=== PATIENT | male | born 1975 | race Caucasian/White ===

== ENCOUNTER 2019-07-24 13:23 | Outpatient (CLI) | payer OTHER, SELFPAY ==
--- NOTE | ~2019-07-24 | XR_ITS ---
XR knee LT min 4V DATE: 07/24/2019 13:43 INDICATION: Acute left knee effusion TECHNIQUE: Crosstable lateral, AP and bilateral oblique views COMPARISON: 10/18/2018 left knee FINDINGS: There is very prominent distention of suprapatellar bursa consistent with large knee joint effusion. There is mild. Spurring of the patella. There is moderately prominent loss of height at the medial co mpartment joint space. No fracture, dislocation, periosteal reaction or bone destruction is evident. No chondrocalcinosis. IMPRESSION: Very prominent knee joint effusion Osteoarthritic changes Reviewed, dictated and finalized at location A.
== END 2019-07-24 13:24 | disposition home or self-care (01) ==
PROVIDERS: PCP Family Medicine; Visit Provider Family Medicine
DX: M25.462 Effusion, left knee (principal); M17.12 Unilateral primary osteoarthritis, left knee
CPT/HCPCS: 73564

== ENCOUNTER 2019-09-30 13:35 | Outpatient (CLI) | payer OTHER, SELFPAY ==
[2019-10-11 17:08] LABS: Calprotectin, Stool 19 mcg/g
== END 2019-09-30 13:36 | disposition home or self-care (01) ==
PROVIDERS: PCP Family Medicine; Visit Provider Internal Medicine Gastroenterology
DX: K51.00 Ulcerative (chronic) pancolitis without complications (principal)
CPT/HCPCS: 36415; 83993

== ENCOUNTER → 2019-11-29 16:30 | Outpatient (CLI) | payer OTHER, SELFPAY ==
--- NOTE | ~2019-11-29 | XR_ITS ---
EXAMINATION: XR knee LT min 4V DATE: 11/29/2019 18:05 INDICATION: Left knee pain. TECHNIQUE: 4 views of left knee were obtained. COMPARISON: Left knee radiographs 07/25/2019 FINDINGS: There is lateral dislocation of patella. There is lateral subluxation of tibia with respect to distal femur. No definite fracture. There is moderate osteoarthritis of medial compartment and mi ld osteoarthritis of lateral and patellofemoral compartments. There is a large knee joint effusion wi th loose bodies. IMPRESSION: 1. Lateral dislocation of patella. 2. Moderate left knee osteoarthritis. 3. Large left knee joint effusion with loose bodies. Reviewed, dictated and finalized at location A.
== END ==
PROVIDERS: PCP Family Medicine; Visit Provider Nurse Practitioner Family
DX: M25.462 Effusion, left knee (principal); M25.562 Pain in left knee; M25.362 Other instability, left knee; M06.09 Rheumatoid arthritis without rheumatoid factor, multiple sites; S83.015A Lateral dislocation of left patella, initial encounter; M17.12 Unilateral primary osteoarthritis, left knee
CPT/HCPCS: 73564

== ENCOUNTER 2020-02-18 08:51 | Emergency (ER) | payer OTHER, SELFPAY ==
--- NOTE | ~2020-02-18 | XR_ITS ---
EXAMINATION: XR knee LT 3V DATE: 02/18/2020 12:05 INDICATION: Left knee injury. TECHNIQUE: 3 views of left knee were obtained. COMPARISON: Left knee radiographs 12/29/2019 FINDINGS: There is lateral subluxation of tibia with respect to distal femur. There is widening of th e tibiotalar joint. There are osteophytes in the medial and lateral compartments. The patella is abse nt. No acute fracture. There is a knee joint effusion. There is heterotopic ossification lateral to d istal femur. IMPRESSION: 1. Widening of the tibiotalar joint. 2. Interval resection of patella. 3. Knee joint effusion. Reviewed, dictated and finalized at location A. [employer]
[2020-02-18 08:50] VITALS: BP 139/91; PULSE 111; RESP 18; TEMP 37.1; O2SAT 98
[2020-02-18 11:30] VITALS: BP 146/90; PULSE 104; RESP 17; O2SAT 97
[2020-02-18 11:54] LABS: Basophils Absolute Auto 0.1 K/mm3 (0.0-0.1); Basophils Percent Auto 0.4 % (0.2-1.2); Eosinophils Percent Auto 0.1 % (0-4.4); Hematocrit 32.6 % (42.0-52.0); Hemoglobin 11.5 g/dL (14.0-18.0); Immature Granulocyte Absolute 0.09 K/mm3 (0.00-0.031); Immature Granulocyte Percent A 0.6 % (0-0.5); Lymphocytes Percent Auto 5.7 % (18.3-44.2); Mean Corpuscular HGB Conc 35.3 g/dl (32-36); Mean Corpuscular Hemoglobin 33.9 pg (26-34); Mean Corpuscular Volume 96.2 fl (80-100); Mean Platelet Volume 9.8 fl (7.4-10.4); Monocytes Absolute Auto 2.6 K/mm3 (0.1-0.6); Monocytes Percent Auto 16.3 % (2.6-8.5); Neutrophils Absolute Auto 12.2 K/mm3 (1.3-6.7); Neutrophils Percent Auto 76.9 % (45.5-73.1); Nucleated Red Blood Cells Perc 0.1 % (0.0-0.2); Platelet Count Result 345 k/mm3 (150-375); Red Blood Count 3.39 M/mm3 (4.6-6.20); Red Cell Distribution Width 13.9 % (11.5-14.5); White Blood Count 15.9 K/mm3 (4.5-10.0)
[2020-02-18 12:02] LABS: Prothrombin Time 14.1 Seconds (11.1-14.7)
[2020-02-18 12:03] LABS: Anion Gap 6 mmol/L (8-16); Blood Urea Nitrogen 7 mg/dL (9-20); Calcium 8.7 mg/dL (8.4-10.2); Carbon Dioxide 29 mmol/L (22-30); Chloride 94 mmol/L (98-107); Estimated CRCL calculation 121 ml/min; Estimated Glomerular Filt Rate > 60; Glucose 123 mg/dL (75-110); Partial Thromboplastin Time 38.4 SECONDS (22.3-36.8); Potassium 3.8 mmol/L (3.4-5.0); Sodium 129 mmol/L (137-145)
[2020-02-18] MEDS: ceFAZolin 2 GM/D5W 50 ML 2 GM/50 ML BAG IVPB (12:10)
--- NOTE | 2020-02-18 13:50 | ED.GENADULT ---
HPI - General Adult General Chief complaint: Extremity Injury, Lower Stated complaint: fall, opened L knee incision Time Seen by Provider: 02/18/20 10:07 Source: patient, family and EMS Mode of arrival: EMS Limitations: no limitations History of Present Illness HPI narrative: Patient is a 44-year-old male who presents with left knee injury last night reportedly got up out of bed and fell injuring the left knee was not wearing his brace at this time patient had recent left knee surgery by Dr. Cool via through [facility] patient on arrival notes minimal discomfort patient with history of stroke with left-sided weakness chronically patient denies other injuries or complaints or recent illness and on arrival is in the room in no distress Related Data Home Medications Medication Instructions Recorded Confirmed adalimumab [Humira Pen] 40 mg SUBCUT 2XW 03/19/19 03/25/19 alendronate 70 mg PO WEEKLY 03/19/19 03/19/19 azathioprine 50 mg PO BID 03/19/19 03/25/19 folic acid 1 mg PO DAILY 03/19/19 03/25/19 lisinopril 20 mg PO DAILY 03/19/19 03/25/19 metoprolol succinate 25 mg PO DAILY 03/19/19 03/25/19 sulfasalazine 2,000 mg PO DAILY 03/19/19 03/25/19 calcium carbonate [Calcium 500] 500 mg PO BID 03/25/19 03/25/19 glucosamine-chondroitin [Osteo 2 tablet PO BID 03/25/19 03/25/19 Bi-Flex] multivitamin,ss-[id number] 1 tablet PO DAILY 03/25/19 03/25/19 [Complete Multivitamin] Allergies Allergy/AdvReac Type Severity Reaction Status Date / Time No Known Allergies Allergy Verified 02/18/20 09:32 Review of Systems Review of Systems: All systems reviewed & are unremarkable except as noted in HPI and below PMFSH Past Medical History Medical History Brain aneurysm Heart murmur Hx of traumatic brain injury Hypertension Osteoporosis Pulmonary nodule Ulcerative colitis Surgical History Surgical History Hx of brain surgery Hx of colonoscopy Hx of tracheostomy S/P clamping of cerebral aneurysm Family History Family History Father Hypertension Family history of coronary artery disease Mother Hypertension Family history of coronary artery disease Grandparent Carcinoma of colon Diabetes mellitus Social History Social History Smoking status: Never smoker Alcohol intake: never Substance use: never Gender identity (if verbalized by the patient): Male Exam Narrative: Exam Narrative: GENERAL: Well-appearing, well-nourished, and in no acute distress. HEAD: Normocephalic, atraumatic. EYES: PERRLA and EOMI. ENT: Nares clear, no rhinorrhea or epistaxis. Mucous membranes moist. NECK: Supple. No adenopathy or masses. CHEST: Clear to auscultation. No respiratory distress. No wheezes rales or rhonchi HEART: Regular rate and rhythm. No murmur heard. Normal peripheral pulses. ABDOMEN: Soft, nontender, nondistended EXTREMITIES: Bruising swelling around the left knee joint with swelling down into the ankle and up into the thigh patient with no tenderness on palpation of the ankle or hip or thigh patient with surgical wound gaping with red soft tissue exposed. No cervical spine tenderness SKIN: Warm, dry, no rash. NEURO: No focal deficits. Alert and oriented x3. Neurovascularly intact PSYCH: Normal mood and affect. Course Course Emergency Course: Patient in the room at this time aware of case findings treatment plan and diagnosis. Patient was evaluated given medications to include Ancef and will be transferred to [facility] as requested by his orthopedic surgeon for reevaluation and closure of the wound Consultations Consultation #1: Spoke with orthopedist Dr. Garcia who would like the patient to be transferred to [facility] and to be kept n.p.o. Date: 02/18/20 Time: 13:52 Consu
[2020-02-18 13:58] VITALS: BP 142/84; PULSE 94; RESP 18; O2SAT 96
[2020-02-18 14:00] VITALS: BP 142/84; PULSE 94; RESP 16; TEMP 36.6; O2SAT 96
[2020-02-18 14:08] VITALS: PULSE 93; RESP 16; TEMP 36.6; O2SAT 98
== END 2020-02-18 14:10 | disposition short-term general hospital (02) ==
PROVIDERS: Emergency Medicine Emergency Medical Services; Emergency Provider Emergency Medicine; PCP Family Medicine
DX: S80.02XA Contusion of left knee, initial encounter (principal); I69.954 Hemiplegia and hemiparesis following unspecified cerebrovascular disease affecting left non-dominant side; Z87.820 Personal history of traumatic brain injury; M81.0 Age-related osteoporosis without current pathological fracture; Z98.890 Other specified postprocedural states; W06.XXXA Fall from bed, initial encounter
CPT/HCPCS: 36415; 73562; 80048; 85025; 85610; 85730; 96365; 96375; 99285; J0131; J0690

== ENCOUNTER → 2020-06-05 11:51 | Outpatient (CLI) | payer OTHER, SELFPAY ==
--- NOTE | ~2020-06-05 | XR_ITS ---
EXAMINATION: XR chest 2V 06/05/2020 12:19 INDICATION: Ulcerative pancolitis PROCEDURE: 2 view chest COMPARISON: No prior studies for comparison. FINDINGS: The lungs are clear. The cardiomediastinal silhouette is within normal limits. There are no pleural effusions. There is no pneumothorax suspected. There is a right-sided ventriculoperitone al shunt. IMPRESSION: 1: NO ACUTE CARDIOPULMONARY DISEASE. Reviewed, dictated and finalized at location A.
== END ==
PROVIDERS: PCP Family Medicine; Visit Provider Physician Assistant Medical
DX: K51.00 Ulcerative (chronic) pancolitis without complications (principal); Z79.899 Other long term (current) drug therapy
CPT/HCPCS: 71046

== ENCOUNTER → 2020-06-12 01:33 | Outpatient (CLI) | payer OTHER, SELFPAY ==
[2020-06-12 20:13] LABS: SARS-CoV-2 RNA PCR Negative
== END ==
PROVIDERS: PCP Family Medicine; Visit Provider Internal Medicine Gastroenterology
DX: Z01.812 Encounter for preprocedural laboratory examination (principal); Z20.822 Contact with and (suspected) exposure to COVID-19
CPT/HCPCS: C9803; U0003; U0005

== ENCOUNTER 2020-06-15 00:56 | Day surgery (SDC) | payer OTHER, SELFPAY ==
[2020-06-06 10:32] VITALS: BMI 25.9
[2020-06-15 07:30] VITALS: BP 141/69; PULSE 89; RESP 18; TEMP 37.1; O2SAT 100; BMI 23.8
[2020-06-15] MEDS: LACTATED RINGERS 1,000 ML 150 ML IV CONT (07:34)
--- NOTE | 2020-06-15 07:37 | WPDANESEPPF ---
Anes - Initial Pre Proc Eval Procedure: Operation Date: 06/15/20 08:30 Proposed Procedures p Colonoscopy - Aquilino Rahman DO Date/Time: 06/15/20 07:37 Surgeon: Aquilino Rahman DO Pre Op Diagnosis: Ulcerative Rodriguez Colitis Patient Data Age: 44 Gender: M Height: 1.78 m Weight: 75.5 kg Last Vital Signs Temp 37.1 C 06/15/20 07:30 Pulse 89 06/15/20 07:30 Resp 18 06/15/20 07:30 BP 141/69 H 06/15/20 07:30 Pulse Ox 100 06/15/20 07:30 Allergies Allergy/AdvReac Type Severity Reaction Status Date / Time No Known Allergies Allergy Verified 06/15/20 07:09 Home Medications Medication Instructions Recorded Confirmed Type adalimumab [Humira Pen] 40 mg SUBCUT 2XW 03/19/19 06/06/20 History alendronate 70 mg PO WEEKLY 03/19/19 06/06/20 History folic acid 1 mg PO DAILY 03/19/19 06/06/20 History lisinopril 20 mg PO BID 03/19/19 06/06/20 History metoprolol succinate 50 mg PO DAILY 03/19/19 06/06/20 History calcium carbonate [Calcium 500] 500 mg PO BID 03/25/19 06/06/20 History glucosamine-chondroitin [Osteo 2 tablet PO BID 03/25/19 06/06/20 History Bi-Flex] multivitamin,ie-qerb-vgoefmhs 1 tablet PO DAILY 03/25/19 06/06/20 History [Complete Multivitamin] azathioprine [Imuran] 100 mg PO DAILY 06/06/20 06/06/20 History Patient hx anesthesia problems: none Family hx anesthesia problems: none PMFSH Past Medical History Medical History Brain aneurysm Heart murmur Hx of traumatic brain injury Hypertension Osteoporosis Pulmonary nodule Ulcerative colitis Surgical History Surgical History Hx of brain surgery Hx of colonoscopy Hx of tracheostomy S/P clamping of cerebral aneurysm Family History Family History Father Hypertension Family history of coronary artery disease Mother Hypertension Family history of coronary artery disease Grandparent Carcinoma of colon Diabetes mellitus Social History Social History Smoking status: Never smoker Alcohol intake: never Substance use: never Substance use type: does not use Living arrangements: with family Gender identity (if verbalized by the patient): Male Spiritual care concerns: No Anes - Eval Final PreProcedure Day of Procedure 06/15/20 07:37 Patient weight: normal Heart: regular rate and rhythm Lungs: clear to auscultation and normal air movement Airway: Mallampati scale class II Neurological: alert and oriented Last oral intake: >/= 8 hours ASA classification: III Emergent: no Anesthetic plan: proceed Anesthesia type and monitoring: general GIVS Informed Consent: The patient's anesthetic plan and its attendant risks and benefits were discussed with the patient/family/POA. Questions were solicited and answers provided to the satisfaction of the patient/family/POA.
--- NOTE | 2020-06-15 08:22 | WPDGICN ---
GI Consult Note Consult date/time: 06/15/20 08:22 HPI: reason for visit is colonoscopy. This very pleasant gentleman seen in consultation request of the primary physician. Impression: Ulcerative colitis. Traumatic brain injury. Status post previous ventricular peritoneal shunt. HTN. Osteoporosis. Pulmonary nodule. Recommendation: Colonoscopy. History: This very pleasant gentleman's history ulcerative colitis. His GI review systems negative at this time. He is here for colonoscopy for screening and surveillance. Physical examination: General: very pleasant patient in no acute distress. HEENT: Head was normocephalic sclerae is clear mouth without masses neck was supple. Heart: Rate rhythm regular without S3 or S4. Lungs: CTA. Abdomen: Soft with no guarding or rigidity. Bowel sounds were active. Neurologic: Cranial nerves 2 through 12 intact. No focal defects. No clonus. has a history terminal brain injury. Musculoskeletal system: Revealed no joint tenderness or swelling no muscle atrophy. Extremities: Reveal no significant edema. Skin: Warm and dry with normal turgor. Mental status: intact. Patient is alert and oriented. Review of Systems Review of Systems: All systems reviewed & are unremarkable except as noted in HPI and below PMFSH Past Medical History Medical History Brain aneurysm Heart murmur Hx of traumatic brain injury Hypertension Osteoporosis Pulmonary nodule Ulcerative colitis Surgical History Surgical History Hx of brain surgery Hx of colonoscopy Hx of tracheostomy S/P clamping of cerebral aneurysm Family History Family History Father Hypertension Family history of coronary artery disease Mother Hypertension Family history of coronary artery disease Grandparent Carcinoma of colon Diabetes mellitus Social History Social History Smoking status: Never smoker Alcohol intake: never Substance use: never Substance use type: does not use Living arrangements: with family Gender identity (if verbalized by the patient): Male Spiritual care concerns: No Meds Home Medications and Allergies Home Medications Medication Instructions Recorded Confirmed Type adalimumab [Humira Pen] 40 mg SUBCUT 2XW 03/19/19 06/06/20 History alendronate 70 mg PO WEEKLY 03/19/19 06/06/20 History folic acid 1 mg PO DAILY 03/19/19 06/06/20 History lisinopril 20 mg PO BID 03/19/19 06/06/20 History metoprolol succinate 50 mg PO DAILY 03/19/19 06/06/20 History calcium carbonate [Calcium 500] 500 mg PO BID 03/25/19 06/06/20 History glucosamine-chondroitin [Osteo 2 tablet PO BID 03/25/19 06/06/20 History Bi-Flex] multivitamin,co-xhkn-[id number] 1 tablet PO DAILY 03/25/19 06/06/20 History [Complete Multivitamin] azathioprine [Imuran] 100 mg PO DAILY 06/06/20 06/06/20 History Allergies Allergy/AdvReac Type Severity Reaction Status Date / Time No Known Allergies Allergy Verified 06/15/20 07:09 Vital Signs Vital Signs - 24 hr 06/15/20 07:30 Temperature 37.1 C Pulse Rate 89 Respiratory Rate 18 Blood Pressure 141/69 H Pulse Oximetry 100
[2020-06-15] MEDS: AMPICILLIN 2 GM/NS 100 ML 2 GM/100 ML BAG IVPB (08:48)
[2020-06-15] MEDS: METHYLENE BLUE 0.5% INJ 10 ML AMPULE 20 ML IRRIGATION ×2 (09:48→09:59)
[2020-06-15 10:07] VITALS: BP 127/91; PULSE 83; RESP 18; O2SAT 100
[2020-06-15 10:17] VITALS: BP 129/97; PULSE 80; RESP 28; O2SAT 97
[2020-06-15 10:27] VITALS: BP 127/80; PULSE 82; RESP 24; O2SAT 98
== END 2020-06-15 10:40 | disposition home or self-care (01) ==
PROVIDERS: PCP Family Medicine; Visit Provider Internal Medicine Gastroenterology
PROC: 0DJD8ZZ Inspection of Lower Intestinal Tract, Via Natural or Artificial Opening Endoscopic (ICD-10-PCS; CPT 45378; principal; 2020-06-15 08:30)
DX: Z12.11 Encounter for screening for malignant neoplasm of colon (principal); D12.4 Benign neoplasm of descending colon; K51.90 Ulcerative colitis, unspecified, without complications; I10 Essential (primary) hypertension; M81.0 Age-related osteoporosis without current pathological fracture; Z87.820 Personal history of traumatic brain injury
CPT/HCPCS: 45380; 88305; C9803; J0290; J1580; J2704; J7120; Q9968; U0003; U0005

== ENCOUNTER 2021-01-04 08:21 | Outpatient (CLI) | payer OTHER, SELFPAY ==
--- NOTE | ~2021-01-04 | DEXA_ITS ---
Bone Density Report Name: Moose Miranda Age: 45 Sex: Male Ethnicity: White Date of : 1975 Indication: monitoring treatment; inflammatory bowel disease; rheumatoid arthritis; Referring Provider: Alex, Komal Galvez Study: Bone densitometry was performed. Exam Date: January 04, 2021 Accession number: [id number] Bone Density: Region BMD T-score Z-score Classification AP Spine (L1-L4) 1.210 1.1 1.3 Normal Femoral Neck (Left) 0.797 -1.0 -0.4 Normal Total Hip (Left) 0.877 -1.0 -0.8 Normal Total Hip Bilateral Avg 0.949 -0.6 -0.3 Normal Femoral Neck (Right) 0.941 0.1 0.7 Normal Total Hip (Right) 1.020 -0.1 0.2 Normal World Health Organization criteria for BMD impression classify patients as: Normal (T-score at or above -1.0), Osteopenia (T-score between -1.0 and -2.5), or Osteoporosis (T-score at or below -2.5). 10-year Fracture Risk: FRAX not reported because: Man under age 50 All T-scores for Spine Total, Hip Total, Femoral Neck at or above -1.0 Treated for osteoporosis Previous Exams: Region Exam Age BMD T-score BMD Change BMD Change Date g/cm2 vs Baseline vs Previous AP Spine(L1-L4) 01/04/2021 45 1.210 1.1 0.193(18.9%)# 0.002(0.2%) 04/28/2018 42 1.208 1.1 0.191(18.7%)# 0.067(5.9%)* 09/05/2016 41 1.141 0.5 0.123(12.1%)# 0.123(12.1%)# 10/25/2011 36 1.018 -0.7 Total Hip(Left) 01/04/2021 45 0.877 -1.0 0.062(7.6%)# -0.053(-5.7%)* 04/28/2018 42 0.930 -0.7 0.115(14.1%)# 0.016(1.7%) 09/05/2016 41 0.915 -0.8 0.100(12.2%)# 0.100(12.2%)# 10/25/2011 36 0.815 -1.4 Total Hip(Right) 01/04/2021 45 1.020 -0.1 0.037(3.8%)# -0.022(-2.1%) 04/28/2018 42 1.042 0.1 0.059(6.0%)# -0.019(-1.8%) 09/05/2016 41 1.061 0.2 0.078(7.9%)# 0.078(7.9%)# 10/25/2011 36 0.983 -0.3 *Denotes significance at 95% confidence level, LSC for AP Spine = 0.022 g/cm2, LSC for Total Hip = 0.027 g/cm2 Clinical Information Provided by Patient: Has rheumatoid arthritis Is being treated for osteoporosis Has used the following medications: Fosamax (i.e. alendronate), Vitamin D, Calcium Has the following medical conditions: Inflammatory bowel diseases, ULCERATIVE COLITIS Patient maximum height was 69 Does not regularly consume dairy products Drinks caffeinated beverages Impression: The patient's bone mass is within expected range for age, gender and ethnicity. The BMD for the Total Hip(Left
== END 2021-01-04 08:22 | disposition home or self-care (01) ==
LOC: ANHIMG 08:22
PROVIDERS: PCP Family Medicine; Visit Provider Physician Assistant Medical
DX: M81.0 Age-related osteoporosis without current pathological fracture (principal); Z51.81 Encounter for therapeutic drug level monitoring; Z79.899 Other long term (current) drug therapy; K51.00 Ulcerative (chronic) pancolitis without complications
CPT/HCPCS: 77080

== ENCOUNTER 2022-11-03 11:15 | Inpatient (IN) | payer OTHER, SELFPAY ==
[2022-11-03] VITALS (7 sets, daily range): BP systolic 113–134; BP diastolic 86–100; PULSE 80–88; RESP 12–18; TEMP 36.2–36.9; O2SAT 94–100
--- NOTE | ~2022-11-03 | US_ITS ---
EXAMINATION: US venous doppler [facility] DATE: 11/04/2022 10:04 INDICATION: Bilateral lower limb edema TECHNIQUE: Rodriguez scale images without and with compression and Doppler images of the bilateral lower e xtremity veins were obtained. COMPARISON: None FINDINGS: The right common femoral vein, profunda femoral vein, femoral vein, popliteal vein, peroneal trunk, p osterior tibial veins, and greater saphenous vein are patent. The left common femoral vein, profunda femoral vein, femoral vein, popliteal vein, peroneal trunk, po sterior tibial veins, and greater saphenous vein are patent. IMPRESSION: 1. Patent bilateral lower extremity veins. No evidence of deep venous thrombosis. Reviewed, dictated and finalized at location A. IMPRESSION: 1. Patent bilateral lower extremity veins. No evidence of deep venous thrombosi s.
--- NOTE | ~2022-11-03 | XR_ITS ---
EXAMINATION: XR hip BI 2V w AP pelvis DATE: 11/03/2022 13:46 INDICATION: Pelvic pain. TECHNIQUE: An anteroposterior view of the pelvis and 2 views of each hip were obtained. COMPARISON: None. FINDINGS: There is lumbar levocurvature and mild spondylosis. No fracture. There is moderate right hi p osteoarthritis and mild left hip osteoarthritis. Partially visualized is a ventriculoperitoneal laquita nt. IMPRESSION: 1. Moderate right hip osteoarthritis and mild left hip osteoarthritis. Reviewed, dictated and finalized at location A.
--- NOTE | ~2022-11-03 | XR_ITS ---
EXAMINATION: XR shunt series DATE: 11/03/2022 13:46 INDICATION: Frequent falls. TECHNIQUE: 8 views of a shunt series were obtained. COMPARISON: Chest 2 views 06/05/2020 FINDINGS: There is a right-sided ventriculostomy tube in expected position. There is no break or kink of the tubing. The shunt tip is in the left abdomen. There are no dilated loops of bowel. IMPRESSION: 1. Ventriculoperitoneal shunt in expected position. Reviewed, dictated and finalized at location A.
--- NOTE | ~2022-11-03 | CT_ITS ---
EXAMINATION: CT brain wo con DATE: 11/03/2022 13:18 INDICATION: Frequent falls. TECHNIQUE: Computed tomography (CT) of the head was performed without intravenous contrast. The mA wa s adjusted according to patient size. Iterative reconstruction technique was employed. The dose-lengt h product was 605.33 mGy-cm. COMPARISON: Head CT 10/18/2018 FINDINGS: There is chronic encephalomalacia in left cerebellum. There is chronic encephalomalacia in right parietal lobe. There is no intracranial hemorrhage, acute infarction, or abnormal intracranial mass lesion. The ventricles are normal in size. There is a right occipital ventriculostomy catheter w ith tip in right lateral ventricle. There are changes of right-sided craniotomy. There are changes of left posterior craniotomy. The paranasal sinuses are clear. The orbits are normal. The mastoid air c ells are normal. IMPRESSION: 1. Chronic encephalomalacia in left cerebellum and right parietal lobe. 2. Normal size of the ventricles with shunt in expected position. Reviewed, dictated and finalized at location A.
--- NOTE | ~2022-11-03 | CT_ITS ---
EXAMINATION: CT lumbar spine wo con DATE: 11/03/2022 13:19 INDICATION: Back pain. Frequent falls. TECHNIQUE: Computed tomography (CT) of the lumbar spine was performed without intravenous contrast. A utomated exposure control and iterative reconstruction technique were employed. The dose-length produ ct was 672.84 mGy-cm. COMPARISON: None FINDINGS: There is 6 degrees levocurvature of lumbar spine. There is mild chronic anterior wedging of T12 and L1 vertebral bodies. There is 4 mm retrolisthesis of L1 on L2, L2 on L3, and L3 on L4. There is mildly decreased disc height at L1-L2, L2-L3, L3-L4, and L4-L5. Osseous central spinal canal is d evelopmentally small in lumbar spine. The following disc levels are specifically discussed: L1-L2: The disc is bulging. There is no facet joint osteoarthritis. There is mild bilateral neural fo raminal stenosis. There is moderate central canal stenosis. L2-L3: The disc is bulging. There is mild bilateral facet joint osteoarthritis. There is moderate rig ht and mild left neural foraminal stenosis. There is mild central canal stenosis. L3-L4: The disc is bulging. There is mild left facet joint osteoarthritis. There is moderate and mild left neural foraminal stenosis. There is moderate central canal stenosis. L4-L5: The disc is bulging. There is moderate right and mild left facet joint osteoarthritis. There i s moderate bilateral neural foraminal stenosis. There is moderate central canal stenosis. L5-S1: The disc is bulging. There is mild bilateral facet joint osteoarthritis. There is mild bilater al neural foraminal stenosis. There is mild central canal stenosis. IMPRESSION: 1. Moderate lumbar spondylosis. Reviewed, dictated and finalized at location A.
--- NOTE | 2022-11-03 11:57 | ED.BACK ---
HPI - Back Pain/Injury General Chief Complaint: Back Pain/Injury Stated Complaint: fall, back pain Time Seen by Provider: 11/03/22 11:42 History of Present Illness HPI Narrative: patient is a 47-year-old male with history of ulcerative colitis, brain aneurysm status post partial cerebellar resection and DOCK BOSS shunt placement here with lower back pain, bilateral hip pain, recurrent falls. Patient notes that since a left sided knee surgery in 2018 he has had difficulty with balance which leads to frequent falls. This is further exasperated by some residual left-sided weakness after his complicated brain surgery history in 1987. he states that on Friday he does not believe he had had a fall recently and began having lower back pain and bilateral hip pain. He notes that he has had some worsening difficulty moving his left leg since that time. He notes he has had several falls since that time and has transitioned from using his walker to more frequent using of his wheelchair. He denies bowel or bladder incontinence, saddle anesthesia. Denies fever or chills. Denies known cancer or history of IVDU. Related Data Home Medications Medication Instructions Recorded Confirmed adalimumab 40 mg/0.8 mL 40 mg subcut Q14D 03/19/19 11/03/22 subcutaneous pen kit (Humira Pen) alendronate 70 mg tablet 70 mg PO WEEKLY 03/19/19 11/03/22 folic acid 1 mg tablet 1 mg PO DAILY 03/19/19 11/03/22 lisinopril 20 mg tablet 20 mg PO BID 03/19/19 11/03/22 metoprolol succinate 25 mg 50 mg PO DAILY 03/19/19 11/03/22 tablet,extended release 24 hr calcium carbonate 500 mg calcium 500 mg PO BID 03/25/19 11/03/22 (1,250 mg) tablet (Calcium 500) glucosamine-chondroitin 250 mg-200 2 tablet PO DAILY 03/25/19 11/03/22 mg tablet (Osteo Bi-Flex) multivitamin,ss-lyfz-luldvadt 1 tablet PO DAILY 03/25/19 11/03/22 (Complete Multivitamin tablet) azathioprine 50 mg tablet (Imuran) 100 mg PO DAILY 06/06/20 11/03/22 sulfasalazine 500 mg tablet 500 mg PO QID 11/03/22 11/03/22 Allergies Allergy/AdvReac Type Severity Reaction Status Date / Time No Known Allergies Allergy Verified 11/03/22 17:39 Review of Systems Review of Systems: CONSTITUTIONAL: Denies fever, chills, or sweats. CARDIOVASCULAR: Denies chest pain, palpitations, or edema. RESPIRATORY: Denies cough or dyspnea. GASTROINTESTINAL: Denies abdominal pain, nausea, vomiting, or diarrhea. GENITOURINARY: Denies dysuria or hematuria. SKIN: Denies rash or itching. MUSCULOSKELETAL: Back pain, bilateral hip pain NEUROLOGIC: Worsening left leg weakness. No headache. [facility] Past Medical History Medical History Brain aneurysm Heart murmur Hx of traumatic brain injury Hypertension Osteoporosis Pulmonary nodule Ulcerative colitis Surgical History Surgical History Hx of brain surgery Hx of colonoscopy Hx of tracheostomy S/P clamping of cerebral aneurysm Family History Family History Father Hypertension Family history of coronary artery disease Mother Hypertension Family history of coronary artery disease Grandparent Carcinoma of colon Diabetes mellitus Social History Social History Smoking status: Never smoker Alcohol intake: never Substance use: never Substance use type: does not use Lack of Transportation: No Lack of Food: Never True Current Housing: I Have Housing Concerned About Future Housing: No Difficulty Paying Gas/Electric Bills: No Difficulty Paying for Meds: No Currently Unemployed: No Education: Trade/Vocational Certificate Difficulty w/ Childcare or Family Care: No Living arrangements: with family Gender identity (if verbalized by the patient): Male Spiritual care concerns: No Exam Narrative: GENERAL: Well-appeari
[2022-11-03] MEDS: HYDROcodone/acetaminophen (*CRX) 5-325 MG TABLET 1 TAB PO (12:33)
[2022-11-03 13:00] LABS: Basophils Absolute Auto 0.1 K/mm3 (0.0-0.1); Basophils Percent Auto 0.4 % (0.2-1.2); Eosinophils Percent Auto 0.2 % (0-4.4); Hematocrit 37.5 % (42.0-52.0); Hemoglobin 12.9 g/dL (14.0-18.0); Immature Granulocyte Absolute 0.04 K/mm3 (0.00-0.031); Immature Granulocyte Percent A 0.3 % (0-0.5); Lymphocytes Absolute Auto 1.69 K/mm3 (0.9-3.2); Lymphocytes Percent Auto 13.7 % (18.3-44.2); Mean Corpuscular HGB Conc 34.4 g/dl (32-36); Mean Corpuscular Hemoglobin 31.8 pg (26-34); Mean Corpuscular Volume 92.4 fl (80-100); Monocytes Absolute Auto 1.6 K/mm3 (0.1-0.6); Monocytes Percent Auto 12.7 % (2.6-8.5); Neutrophils Percent Auto 72.7 % (45.5-73.1); Platelet Count Result 273 k/mm3 (150-375); Red Blood Count 4.06 M/mm3 (4.6-6.20); Red Cell Distribution Width 13.4 % (11.5-14.5); White Blood Count 12.3 K/mm3 (4.5-10.0)
[2022-11-03 13:13] LABS: Alanine Aminotransferase 30 U/L (6-50); Albumin Level 4.1 g/dL (3.5-5.1); Alkaline Phosphatase 59 U/L (38-126); Anion Gap 5 mmol/L (8-16); Aspartate Amino Transferase 47 U/L (17-59); Blood Urea Nitrogen 5 mg/dL (9-20); CRP 0.6 mg/dL (<1.0); Calcium 8.8 mg/dL (8.4-10.2); Carbon Dioxide 25 mmol/L (22-30); Chloride 91 mmol/L (98-107); Estimated CRCL calculation 135 ml/min; Estimated Glomerular Filt Rate > 60; Glucose 98 mg/dL (65-110); Potassium 3.8 mmol/L (3.4-5.0); Sodium 121 mmol/L (137-145)
[2022-11-03 13:28] LABS: Erythrocyte Sedimentation Rate 15 mm/hr (0-20)
[2022-11-03] MEDS: SODIUM CHLORIDE 0.9% IV 1,000 ML 999 ML IV CONT (16:00)
[2022-11-03 16:29] LABS: Sodium Urine Random 23 meq/L
--- NOTE | 2022-11-03 18:24 | PM.IMHP ---
H&P: HPI History of Present Illness Date/Time: 11/03/22 18:24 Chief Complaint: Back pain/injury Narrative: This is a 47-year-old male patient who has a history of ulcerative colitis as well as chronic hyponatremia. The patient has had a a history of brain aneurysm with a resection and GENERAL ACCOUNTANT shunt. The patient has had a history of having a tracheostomy with focal cord paralysis. The patient stated that he had his knee cap removed back in 2018 any has problems with his balance and has been falling. The patient reported that he had some left-sided weakness but he is able to move all extremities today. The patient stated that he had a fall on Friday but does not believe that he had of fall since then. The patient was having some lower back pain and some bilateral hip pain since his last fall. He is having more difficulty moving his left leg and has had several falls. The patient typically uses a walker but has transition to a wheelchair. He is not incontinent of bowel or bladder. No saddle anesthesias. He is currently moving all extremities. The patient denies any syncopal episode or having any complaints of palpitations chest pain or irregular heartbeat. The patient hitting his head during any these episodes of falling. Hip and pelvis x-ray was read as moderate right hip osteoarthritis and mild left hip osteoarthritis. Imaging shunt series was read as GENERAL ACCOUNTANT shunt in expected position. Lumbar spine was read as moderate lumbar spondylosis. Head CT was read as chronic encephalomalacia in the lesser prolonged and right parietal lobe. Normal size of the ventricles with shunt in expected position. His white count is 12.3. H&H is 12.9 and 37.5. The patient's sodium level was 121 when he came in and is now 125. The patient has chronic hyponatremia which ranges anywhere from 124-132. The patient was given an IV bolus of normal saline in the emergency room. The patient denies any alcohol use. The patient is being admitted to observation status on the date of service of 11/03/2022. Review of Systems Review of Systems: All systems reviewed & are unremarkable except as noted in HPI and below Constitutional: Constitutional: Reports as per HPI and Reports no additional constitutional complaints Eyes: Eyes: Reports as per HPI and Reports no additional eye complaints ENT: Reports system reviewed and no additional complaints, except as documented and Reports Normal hearing present Cardiovascular: Cardiovascular: Reports no additional cardiovascular complaints Respiratory: Respiratory: Reports no additional respiratory complaints and Reports no additional respiratory complaints Gastrointestinal: Gastrointestinal: Reports as per HPI and Reports no additional gastrointestinal complaints Musculoskeletal: Musculoskeletal: Reports no additional musculoskeletal complaints Integumentary/Breasts: Skin/Breast: Reports system reviewed and no additional complaints, except as docu and Reports as per HPI Neurologic: Reports system reviewed and no additional complaints, except as documented, Reports as per HPI and Reports Normal hearing present Psychiatric: Psychiatric: Reports no additional psychiatric complaints and Reports as per HPI Endocrine: Endocrine: Reports no additional endocrine complaints Hematologic/Lymphatic: Hematologic/Lymphatic: Reports no additional hematologic/lymphatic complaints Allergic/Immunologic: Allergic/Immunologic: Reports no additional allergic/immunologic complaints PMFSH Past Medical History Medical History (Updated 11/03/22 @ 23:57 by Kaylene Duke NP) Brain aneurysm Frequent falls Heart murmur History of seizure Hx of traumatic brain injury Hypertension Osteoporosis Pulmonary nodule Ulcerative colitis Surgical History Surgical History (Updated 11/03/22 @ 23:34 by Kaylene Duke NP) H/O left knee surgery Hx of brain surgery Hx of colonoscopy Hx of tracheostomy S/P clamping of cerebral aneurysm Fam
--- NOTE | 2022-11-03 20:12 | ECG_ITS ---
Measurements Intervals [place] Rate: 81 P: CT: 0 QRS: 67 QRSD: 93 T: 40 QT: 379 QTc: 440 Interpretive Statements ATRIAL FIBRILLATION ABNORMAL RHYTHM ECG NO PREVIOUS ECG AVAILABLE FOR COMPARISON Electronically Signed On 11-04-2022 7:34:03 CDT by Ranjan Carter M.D.
[2022-11-03 21:40] LABS: Anion Gap 3 mmol/L (8-16); Blood Urea Nitrogen 6 mg/dL (9-20); Calcium 8.5 mg/dL (8.4-10.2); Carbon Dioxide 27 mmol/L (22-30); Chloride 95 mmol/L (98-107); Estimated CRCL calculation 117 ml/min; Estimated Glomerular Filt Rate > 60; Glucose 109 mg/dL (65-110); Magnesium 1.9 mg/dL (1.6-2.3); Potassium 3.6 mmol/L (3.4-5.0); Sodium 125 mmol/L (137-145)
[2022-11-04] VITALS (8 sets, daily range): BP systolic 124–129; BP diastolic 82–90; PULSE 63–90; RESP 16–20; TEMP 36.2–36.4; O2SAT 100
--- NOTE | 2022-11-04 | ECHO_ITS ---
Patient Info Name: Moose Miranda Age: 47 years : 1975 Gender: Male Ht: 70 in Wt: 194 lbs BSA: 2.10 m2 HR: 74 bpm BP: 123 / 87 mmHg Heart Rhythm: Atrial Fibrillation Technical Quality: Fair Exam Date: 11/04/2022 4:14 PM Exam Location: [facility] Pulmonary Exam Room: 306 Patient Status: Outpatient Admit Date: 11/03/2022 Staff Ordering Physician: Kaylene Duke NP [place]: Aurelia Davis RDCS Attending Provider: Tommy Paulino MD Referring Physician: Leilani PERES; Exam Type: CA echo dop color flow w con Study Info Indications - NEW AFIB Complete two-dimensional, color flow and Doppler transthoracic echocardiogram is performed with contrast to opacify the left ventricle and to improve the deliniation of the left ventricle endocardial borders. Contrast/Agitated Saline Contrast/Ag. Saline: Definity Amount: 2.00 ml Administered By: Aurelia Davis [facility] Existing IV Access: Yes IV Access Condition: patent with no signs of infiltration Summary 1. Normal left ventricular size thickness and systolic function. 2. Dilated left atrium. 3. Trivial mitral and tricuspid valve regurgitation. 4. Atrial fibrillation. Left Ventricle Left ventricular chamber dimension is normal. Left ventricular systolic function is normal, estimated at 50-55%. The left ventricular diastolic function is indeterminate. Right Ventricle Right ventricular chamber dimension is normal. Left Atria Left atrial chamber dimension is moderately enlarged. Right Atria Right atrial chamber dimension is not well visualized. Aortic Valve The aortic valve is normal. Pulmonic Valve The pulmonic valve is normal. Mitral Valve The mitral valve has normal leaflets. There is trace mitral valve regurgitation. Tricuspid Valve The tricuspid valve leaflets are normal. There is trace tricuspid valve regurgitation. Pericardium/Pleural The pericardium appears normal. Aorta The aortic root size at the sinus of Valsalva is normal. Left Ventricular Outflow Tract Name Value Normal LVOT 2D LVOT Diameter 2.11 cm LVOT Doppler LVOT Peak Gradient 3 mmHg LVOT Mean Gradient 1 mmHg LVOT VTI 14.97 cm LVOT VTI/AV VTI Ratio 0.86 LVOT Stroke Volume 52.51 ml LVOT CO 11.83 l/min LVOT CI 5.63 L/min/m2 Pulmonic Valve Name Value Normal PV Doppler PV Peak Gradient 3 mmHg Mitral Valve Name Value Normal MV Doppler MV [place] 559.90 cm/s2
[2022-11-04] MEDS: SODIUM CHLORIDE 0.9% IV 1,000 ML 50 ML IV CONT (01:05)
[2022-11-04 03:41] LABS: Appearance Urine Clear (Clear); Bilirubin Urine Negative (Negative); Blood Urine Negative (Negative); Color Urine Yellow (Yellow); Glucose Urine UA Negative (Negative); Ketones Urine Negative (Negative); Leukocyte Esterase Ur Negative LEU/UL (Negative); Nitrate Urine Negative (Negative); Protein Urine Negative (Negative); Specific Grav Ur 1.004 (1.001-1.035); Urobilinogen Urine 0.2 mg/dL (<2.0); pH Urine 7.5 (5.0-9.0)
[2022-11-04 03:50] LABS: Add Urine Microscopic? NO
[2022-11-04 07:03] LABS: Basophils Percent Auto 0.6 % (0.2-1.2); Eosinophils Percent Auto 0.6 % (0-4.4); Hematocrit 38.8 % (42.0-52.0); Hemoglobin 12.9 g/dL (14.0-18.0); Immature Granulocyte Absolute 0.03 K/mm3 (0.00-0.031); Immature Granulocyte Percent A 0.4 % (0-0.5); Lymphocytes Absolute Auto 1.55 K/mm3 (0.9-3.2); Lymphocytes Percent Auto 22.7 % (18.3-44.2); Mean Corpuscular HGB Conc 33.2 g/dl (32-36); Mean Corpuscular Hemoglobin 31.8 pg (26-34); Mean Corpuscular Volume 95.6 fl (80-100); Mean Platelet Volume 10.3 fl (7.4-10.4); Monocytes Absolute Auto 1.1 K/mm3 (0.1-0.6); Monocytes Percent Auto 15.4 % (2.6-8.5); Neutrophils Absolute Auto 4.1 K/mm3 (1.3-6.7); Neutrophils Percent Auto 60.3 % (45.5-73.1); Platelet Count Result 245 k/mm3 (150-375); Red Blood Count 4.06 M/mm3 (4.6-6.20); Red Cell Distribution Width 13.6 % (11.5-14.5); White Blood Count 6.8 K/mm3 (4.5-10.0)
[2022-11-04 07:15] LABS: Alanine Aminotransferase 30 U/L (6-50); Albumin Level 3.8 g/dL (3.5-5.1); Alkaline Phosphatase 53 U/L (38-126); Anion Gap 5 mmol/L (8-16); Aspartate Amino Transferase 43 U/L (17-59); Blood Urea Nitrogen 7 mg/dL (9-20); Calcium 8.3 mg/dL (8.4-10.2); Carbon Dioxide 26 mmol/L (22-30); Chloride 101 mmol/L (98-107); Estimated CRCL calculation 135 ml/min; Estimated Glomerular Filt Rate > 60; Glucose 87 mg/dL (65-110); Magnesium 2.1 mg/dL (1.6-2.3); Potassium 4.1 mmol/L (3.4-5.0); Sodium 132 mmol/L (137-145)
[2022-11-04] MEDS: sulfaSALAzine 500 MG TABLET PO ×4 (09:04→21:45)
[2022-11-04] MEDS: THERAPEUTIC MULTIVITAMINS/MINERALS TAB (*BKC) 1 TABLET PO (09:04)
[2022-11-04] MEDS: FOLIC ACID 1 MG TABLET PO (09:05)
[2022-11-04] MEDS: lisinopriL 20 MG TABLET PO ×2 (09:05→21:45)
[2022-11-04] MEDS: azaTHIOprine 50 MG TABLET 100 MG PO (09:05)
[2022-11-04] MEDS: CALCIUM CARBONATE (OSCAL) 500 MG TABLET PO ×2 (09:05→17:32)
[2022-11-04] MEDS: METOPROLOL SUCCINATE EXT REL 50 MG TABCR PO (09:05)
--- NOTE | 2022-11-04 09:32 | PM.IMPN ---
Subjective Date/time seen: 11/04/22 09:32 Objective Data Vital Signs Vital Signs: Vital Signs - 24 hr 11/03/22 11:19 11/03/22 11:24 11/03/22 12:00 Temperature 36.9 C Pulse Rate 88 87 86 Respiratory Rate 13 12 16 Blood Pressure 134/100 H 113/86 Pulse Oximetry 100 100 94 Oxygen Delivery Room Air 11/03/22 12:18 11/03/22 17:10 11/03/22 18:19 Temperature 36.6 C Pulse Rate 86 84 Respiratory Rate 14 18 Blood Pressure 127/87 Pulse Oximetry 99 94 96 Oxygen Delivery Room Air 11/03/22 21:46 11/04/22 00:00 11/04/22 04:00 Temperature 36.2 C L Pulse Rate 80 87 74 Respiratory Rate 16 Blood Pressure 123/87 Pulse Oximetry 95 Oxygen Delivery 11/04/22 06:00 11/04/22 09:05 Temperature 36.2 C L Pulse Rate 82 76 Respiratory Rate 18 Blood Pressure 127/90 Pulse Oximetry 100 Oxygen Delivery Intake/Output Intake/Output: Intake & Output 11/01/22 11/02/22 11/03/22 11/04/22 23:59 23:59 23:59 23:59 Intake Total 240 Output Total 350 1525 Balance -110 -1525 Meds/Results Medications: Active Medications Generic Name Dose Route Start Last Admin Trade Name Freq PRN Reason Stop Dose Admin Azathioprine 100 mg 11/04/22 09:00 11/04/22 09:05 Azathioprine 50 Mg Tablet PO 100 mg DAILY DAKSHA Administration Calcium Carbonate 500 mg 11/04/22 09:00 11/04/22 09:05 Calcium Carbonate (Oscal) 500 Mg Tablet PO 500 mg BID DAKSHA Administration Folic Acid 1 mg 11/04/22 09:00 11/04/22 09:05 Folic Acid 1 Mg Tablet PO 1 mg DAILY DAKSHA Administration Sodium Chloride 1,000 mls @ 50 mls/hr 11/03/22 23:20 11/04/22 01:05 Normal Saline Iv IV CONT 50 mls/hr .Q20H DAKSHA Administration Lisinopril 20 mg 11/04/22 09:00 11/04/22 09:05 Lisinopril 20 Mg Tablet PO 20 mg Q12HR ADKSHA Administration Metoprolol Succinate 50 mg 11/04/22 09:00 11/04/22 09:05 Metoprolol Succinate Ext Rel 50 Mg Tabcr PO 50 mg DAILY DAKSHA Administration Multivitamins/Calcium 1 tablet 11/04/22 09:00 11/04/22 09:04 Therapeutic Multivitamins/Minerals Tab (*Bkc) PO 1 tablet DAILY DAKSHA Administration Perflutren Lipid Microsphere 0 ml 11/03/22 23:32 Perflutren Lipid Microspheres 1.5 Ml Vial Diluted To 10 Ml Total Volume IV PUSH 11/05/22 23:32 ONCE PRN adequate visualization Protocol Sulfasalazine 500 mg 11/04/22 09:00 11/04/22 09:04 Sulfasalazine 500 Mg Tablet PO 500 mg QID DAKSHA Administration Radiology Results: ITS Impressions Head CT 11/03/22 13:20 IMPRESSION: 1. Chronic encephalomalacia in left cerebellum and right parietal lobe. 2. Normal size of the ventricles with shunt in expected position. Lumbar Spine CT 11/03/22 13:23 IMPRESSION: 1. Moderate lumbar spondylosis. Imaging Shunt Series 11/03/22 13:47 IMPRESSION: 1. Ventriculoperitoneal shunt in expected position. Hip/Pelvis X-Ray 11/03/22 13:49 IMPRESSION: 1. Moderate right hip osteoarthritis and mild left hip osteoarthritis. Labs Labs: Laboratory Results - last 24 hr 11/03/22 11/03/22 11/03/22 12:56 15:39 21:23 WBC 12.3 H RBC 4.06 L Hgb 12.9 L Hct 37.5 L MCV 92.4 MCH 31.8 MCHC 34.4 RDW 13.4 Plt Count 273 MPV 10.0 Immature Gran % (Auto) 0.3 Neut % (Auto) 72.7 Lymph % (Auto) 13.7 L [place] % (Auto) 12.7 H Eos % (Auto) 0.2 Baso % (Auto) 0.4 Lymph # (Auto) 1.69 [place] # (Auto) 1.6 H Eos # (Auto) 0.0 Baso # (Auto) 0.1 Abs Immat Gran (auto) 0.04 H Absolute Neuts (auto) 9.0 H Absolute Nucleated RBC 0.0 Nucleated RBC % 0.0 ESR 15 Sodium 121 L 125 L Potassium 3.8 3.6 Chloride 91 L 95 L Carbon Dioxide 25 27 Anion Gap 5 L 3 L BUN 5 L 6 L Creatinine 0.60 L 0.70 Estim Creat Clear Calc 135 117 Estimated GFR > 60 > 60 Glucose 98 109 Calcium 8.8 8.5 Magnesium 1.9 Total Bilirubin 1.0 AST 47 ALT 30 Alkaline [place]
--- NOTE | 2022-11-04 09:53 | PCPTNOTE ---
Attempted PT evaluation, pt off the unit for a test. Will follow.
--- NOTE | 2022-11-04 09:59 | PCOTNOTE ---
Addendum entered by Elva Gray, OT 11/04/22 10:15: Spoke with hospitalist, Ayaz Snider, who requested therapy wait to see pt. after his review of new test results. Following. Original Note: Attempted to see pt. for occupational therapy evaluation. Pt. away from room at this time.
--- NOTE | 2022-11-04 10:28 | PM.IMPN ---
Progress Note: A&P Assessment and Plan (1) Back pain: Code(s): M54.9 - Dorsalgia, unspecified Status: Acute Assessment and Plan: Upper lumbar/lower thoracic back pain without midline tenderness or instability. No cauda equinus signs or symptoms. Unable to obtain MRI due to shunt in place that is not MRI safe. (2) Acute hip pain, bilateral: Code(s): M25.551 - Pain in right hip; M25.552 - Pain in left hip Status: Acute Assessment and Plan: Findings of osteoarthritis on x-ray no findings fracture or dislocation. (3) Acute hyponatremia: Code(s): E87.1 - Hypo-osmolality and hyponatremia Status: Acute Assessment and Plan: Acute on chronic hyponatremia 121 on admit, overcorrected to 132 with IV fluids. IV fluids stopped. (4) Atrial fibrillation: Code(s): I48.91 - Unspecified atrial fibrillation Status: Acute Assessment and Plan: Newly identified on admission. Cardiology consult. Appreciate all recommendations. (5) Frequent falls: Code(s): R29.6 - Repeated falls Status: Acute Assessment and Plan: Related to chronic left extremity weakness and balance problems. Possibly related to acute on chronic hyponatremia. CERTIFIED [employer]COME [employer]PARER shunt series normal CT of the head unchanged from previous. Left knee problems from prior surgery removing knee cap. (6) CERTIFIED INCOME TAX [employer]PARER (ventriculoperitoneal) shunt status: Code(s): Z98.2 - Presence of cerebrospinal fluid drainage device Status: Acute Assessment and Plan: XR and CT stable (7) Ulcerative colitis: Code(s): K51.90 - Ulcerative colitis, unspecified, without complications Status: Acute Assessment and Plan: No GI bleeding or major abdominal pain--continue home medications (8) Hypertension: Code(s): I10 - Essential (primary) hypertension Status: Acute Assessment and Plan: Stable, continue home medications. Blood pressure reviewed on 11/04 Time Spent With Patient Time with patient: 25 - 35 minutes Subjective Date/time seen: 11/04/22 13:00 Interval history: This 47-year-old male patient admitted after multiple falls with acute on chronic hyponatremia. CT scan shows chronic encephalomalacia related to prior aneurysm as well as CERTIFIED INCOME TAX PREPARER shunt in place. Shunt series unremarkable. CT lumbar spine shows spondylosis with chronic appearing disc bulging. No symptoms cauda equina. Patient unable to undergo MRI as his CERTIFIED INCOME TAX [employer]PARER shunt is not MRI safe. He reports that his lumbar back pain is a little worse than usual after this fall but he does not have any numbness tingling saddle paresthesias bowel or bladder malfunction. He is concerned about his sodium levels being so low. He received IV fluids and now sodium has increased from 121 to 132. He denies headache or new/worsening symptoms. He has chronic left sided weakness since aneurysm rupture at age 12. No new weakness or worsening per patient and his mother. Patient/mother refusing PT/OT as it has not helped in the past. Review of Systems Review of Systems: All systems reviewed & are unremarkable except as noted in HPI and below Exam Const: General: comfortable, no acute distress, alert and awake Orientation/consciousness: patient oriented x3 HENMT: Head: normal to inspection Eyes: General: appearance normal, both eyes and all related structures Pupils: Equal, round and reactive pupils present Neck: Neck: normal visual inspection, supple and no JVD Resp: Effort & Inspection: normal respiratory effort Auscultation: clear to auscultation bilaterally Cardio: Rate: regular rate Rhythm: regular rhythm Heart sounds: S1 normal heart sound present, S2 normal heart sound present and no murmurs GI: Auscultation: normal bowel sounds Skin: General skin exam: normal color Neuro: General: patient oriented x3 Cranial nerves: Yes Equal, round and reactive pupils present Speech: normal speech Other: Left leg and left arm chronic w
[2022-11-04 12:45] LABS: Anion Gap 5 mmol/L (8-16); Blood Urea Nitrogen 9 mg/dL (9-20); Calcium 8.6 mg/dL (8.4-10.2); Carbon Dioxide 28 mmol/L (22-30); Chloride 99 mmol/L (98-107); Estimated CRCL calculation 135 ml/min; Estimated Glomerular Filt Rate > 60; Glucose 106 mg/dL (65-110); Potassium 4.1 mmol/L (3.4-5.0); Sodium 132 mmol/L (137-145)
--- NOTE | 2022-11-04 13:36 | PM.CNCAR ---
Assessment and Plan Assessment and plan (1) Atrial fibrillation: Code(s): I48.91 - Unspecified atrial fibrillation Status: Acute Assessment and Plan: New diagnosis atrial fibrillation of unknown chronicity. No previous ECG available. He is rate controlled on his usual dose of metoprolol. Continue metoprolol succinate 50mg daily [id number] score is 1 (HTN) anticoagulation is not indicated at this point. He would not be a good candidate if it were indicated as he falls very frequently As he cannot be anticoagulated, will continue with rate control strategy for now. If he acquires another risk factor and needs anticoagulation, will need to consider another strategy. Echo has been ordered and is pending History of Present Illness History of Present Illness Consult date/time: 11/04/22 13:36 Requesting physician: Kaylene Duke NP Consult reason: atrial fibrillation Reason For Visit: Hyponatremia Narrative: Moose Miranda is a 47 year old with a history of mitral valve regurgitation and hypertension. He comes to the hospital following a fall. He has been falling quite frequently recently, he estimates a dozen times in the past couple of months. He states he is having balance issues that are causing these falls. Denies any loss of consciousness. While hospitalized he has been found to be in atrial fibrillation. He denies any history of this. He is not experiencing any palpitations, chest pain, shortness of breath. His heart rate is well controlled currently on his home dose of metoprolol. At the time of my visit with him he is resting comfortably in bed and has no complaints. Review of Systems Review of Systems: All systems reviewed & are unremarkable except as noted in HPI and below PMFSH Past Medical History Medical History Brain aneurysm Frequent falls Heart murmur History of seizure Hx of traumatic brain injury Hypertension Osteoporosis Pulmonary nodule Ulcerative colitis Surgical History Surgical History H/O left knee surgery Hx of brain surgery Hx of colonoscopy Hx of tracheostomy S/P clamping of cerebral aneurysm Family History Family History Father Hypertension Family history of coronary artery disease Mother Hypertension Family history of coronary artery disease Grandparent Carcinoma of colon Diabetes mellitus Social History Social History Social History: The patient is currently living with his grandmother and helps to take care of her. The patient walks with a walker typically but has been in a wheelchair recently. Lifelong nonsmoker. He denies any alcohol marijuana or illicit drugs. The patient denies being on disability but is unemployed at this time Code status full code Smoking status: Never smoker Alcohol intake: never Substance use: never Substance use type: does not use Lack of Transportation: No Lack of Food: Never True Current Housing: I Have Housing Concerned About Future Housing: No Difficulty Paying Gas/Electric Bills: No Difficulty Paying for Meds: No Currently Unemployed: No Education: Trade/Vocational Certificate Difficulty w/ Childcare or Family Care: No Living arrangements: with family Gender identity (if verbalized by the patient): Male Spiritual care concerns: No Meds Home Medications and Allergies Home Medications Medication Instructions Recorded Confirmed Type adalimumab 40 mg/0.8 mL 40 mg subcut Q14D 03/19/19 11/03/22 History subcutaneous pen kit (Humira Pen) alendronate 70 mg tablet 70 mg PO WEEKLY 03/19/19 11/03/22 History folic acid 1 mg tablet 1 mg PO DAILY 03/19/19 11/03/22 History lisinopril 20 mg tablet 20 mg PO BID 03/19/19 11/03/22 History metoprolol succinate 25
--- NOTE | 2022-11-04 16:07 | PM.CNNEP ---
Assessment and Plan Assessment and plan (1) Hyponatremia: Code(s): E87.1 - Hypo-osmolality and hyponatremia Status: Acute Assessment and Plan: acute on chronic concerning for overcorrection in the last 24 hours (121 -> 132) dose with D5W and DDAVP with goal getting his sodium down to ~ 129mmol/L follow trend of repeat sodium levels (2) Atrial fibrillation: Code(s): I48.91 - Unspecified atrial fibrillation Status: Acute Assessment and Plan: new onset Cardiology following rate control strategy anticoagulation maybe an issues given fall risk (3) Hypertension: Code(s): I10 - Essential (primary) hypertension Status: Chronic Assessment and Plan: reasonable control continues current medications follow trend of hemodynamics (4) Frequent falls: Code(s): R29.6 - Repeated falls Status: Acute Assessment and Plan: fall precautions PT/OT as tolerated I will continue to follow patient with you while he remains hospitalized and make further recommendations as needed. Thank you for allowing me to participate in the care of this patient. History of Present Illness Reason for Consult Consult date: 11/04/22 Reason for consult: hyponatremia Chief Complaint Chief complaint: Hyponatremia History of Present Illness Narrative: The patient is a 47-year-old male with a past medical history as outlined below who presented to [facility] due to frequent falls. The patient reports that he does have a history frequent falls in the past but this is not related to the fact that he had one of his knee caps removed in 2019 and has some chronic issues with balance. Furthermore, he has a history of a brain aneurysm with a resection and EMPLOYMENT [employer] shunt placement. He believes that his last fall was on Friday and does not recall any further falls since that time. However, since the fall, he has had some lower back pain and bilateral hip pain and has had some difficulty moving his left leg as well. He denies any other neurological symptoms as able to move all of his extremities without any issues or problems. He denies any issues with syncope loss of consciousness over that matter any issues with chest pain or shortness of breath both prior to or after his most recent fall. He presented to the emergency room for further evaluation given these symptoms as mentioned. Workup and evaluation emergency room demonstrated the patient to be hemodynamically stable and in no apparent distress. Imaging studies including hip and pelvis x-rays demonstrated moderate right hip osteoarthritis and mild left hip osteoarthritis. CT of the brain was read as a EMPLOYMENT [employer] EXAM[employer]ER shunt in the expected position and chronic encephalomalacia in the lesser prolonged and right parietal lobe with normal-sized ventricles. His EKG change did show atrial fibrillation which appears to be a new finding. Routine blood test demonstrated a normal CBC with a mildly elevated white blood cell count and his chemistry was significant for hyponatremia with a sodium of 121 and with repeat testing showing his sodium up to 125. he was given IV fluids in the emergency room and subsequently admitted to the hospital for further evaluation and therapy. Renal consultation was requested due to his hyponatremia and concerns for over-correction. The patient has baseline /chronic hyponatremia with his sodium fluctuating anywhere from 124-132 millimoles per L that date back to 2019 if not longer. as noted above, his admission sodium was 121 and with IV fluid resuscitation his sodium corrected to 132 millimoles per L which is a change of almost 11 millimoles per L in less than a 24 hr period of time. Suprisingly, despite this rapid change in his sodium level, he does not appear to have any other neurological sequelae other than what he has at baseline. I am assuming that is chronic hyponatremia relates to his neurological
[2022-11-04] MEDS: PERFLUTREN LIPID MICROSPHERES 1.5 ML VIAL DILUTED TO 10 ML TOTAL VOLUME IV PUSH (16:25)
--- NOTE | 2022-11-04 16:46 | IVDEFINITY ---
Prior to administration of IV Definity the patient was educated on the risks and benefits of the imaging enhancing agent including potential adverse side effects. The patient verbalized understanding. Allergies were verified. No exclusion criteria were identified and at least one of the following inclusion criteria were met: 1) physician request, 2) patient technically difficult to image (per the [place] [employer]ocardi[employer] guidelines of two or more segments not discernable within the apical view), or 3) questionable left ventricular function. ?
[2022-11-04] MEDS: DESMOPRESSIN ACETATE 4 MCG/ML AMP 1 MCG SUB-Q (17:31)
[2022-11-04] MEDS: DEXTROSE 5% IN WATER 500 ML 250 ML IV CONT (17:32)
--- NOTE | 2022-11-04 18:21 | PC.NURSE ---
Pt had ultrasound done today. Pt family at bedside. Pt denies any pain and expresses no needs at this time. Pt has been monitored for any changes in status.
[2022-11-04 21:21] LABS: Alanine Aminotransferase 29 U/L (6-50); Albumin Level 3.8 g/dL (3.5-5.1); Alkaline Phosphatase 50 U/L (38-126); Anion Gap 8 mmol/L (8-16); Aspartate Amino Transferase 36 U/L (17-59); Bilirubin,Total 0.7 mg/dL (0.2-1.3); Blood Urea Nitrogen 12 mg/dL (9-20); Calcium 8.5 mg/dL (8.4-10.2); Carbon Dioxide 24 mmol/L (22-30); Chloride 99 mmol/L (98-107); Estimated CRCL calculation 117 ml/min; Estimated Glomerular Filt Rate > 60; Glucose 89 mg/dL (65-110); Potassium 3.7 mmol/L (3.4-5.0); Sodium 131 mmol/L (137-145)
--- NOTE | 2022-11-04 21:30 | PC.NURSE ---
Spoke with Dr. Gomez about patient's NA 131 after 500ml of D5W. New orders received for another D5W 500 ml and 250 ml/hr. Redraw sodium level one hour after and call Jason with results.
[2022-11-04] MEDS: DEXTROSE 5% 1,000 ML 1,000 ML 250 ML (23:18)
[2022-11-05] VITALS (8 sets, daily range): BP systolic 118–127; BP diastolic 71–98; PULSE 71–90; RESP 16–18; TEMP 36.1–37.1; O2SAT 100
[2022-11-05 02:06] LABS: Anion Gap 8 mmol/L (8-16); Blood Urea Nitrogen 10 mg/dL (9-20); Calcium 8.3 mg/dL (8.4-10.2); Carbon Dioxide 23 mmol/L (22-30); Chloride 99 mmol/L (98-107); Estimated CRCL calculation 159 ml/min; Estimated Glomerular Filt Rate > 60; Glucose 89 mg/dL (65-110); Potassium 3.3 mmol/L (3.4-5.0); Sodium 130 mmol/L (137-145)
--- NOTE | 2022-11-05 02:13 | PC.NURSE ---
Left message for Dr. Gomez to return call for results of patient's NA level.
[2022-11-05 06:28] LABS: Hematocrit 41.5 % (42.0-52.0); Hemoglobin 13.9 g/dL (14.0-18.0); Mean Corpuscular HGB Conc 33.5 g/dl (32-36); Mean Corpuscular Hemoglobin 31.6 pg (26-34); Mean Corpuscular Volume 94.3 fl (80-100); Mean Platelet Volume 10.3 fl (7.4-10.4); Platelet Count Result 255 k/mm3 (150-375); Red Cell Distribution Width 13.6 % (11.5-14.5); White Blood Count 8.7 K/mm3 (4.5-10.0)
[2022-11-05 06:37] LABS: Albumin Level 3.9 g/dL (3.5-5.1); Anion Gap 2 mmol/L (8-16); Blood Urea Nitrogen 9 mg/dL (9-20); Calcium 8.5 mg/dL (8.4-10.2); Carbon Dioxide 29 mmol/L (22-30); Chloride 95 mmol/L (98-107); Estimated CRCL calculation 135 ml/min; Estimated Glomerular Filt Rate > 60; Glucose 93 mg/dL (65-110); Phosphorus 3.4 mg/dL (2.5-4.5); Potassium 3.7 mmol/L (3.4-5.0); Sodium 126 mmol/L (137-145)
--- NOTE | 2022-11-05 06:44 | PC.NURSE ---
Spoke with Dr. Gomez at this time r/t sodium level 126. Doc says that level is fine.
[2022-11-05] MEDS: THERAPEUTIC MULTIVITAMINS/MINERALS TAB (*BKC) 1 TABLET PO (08:29)
[2022-11-05] MEDS: azaTHIOprine 50 MG TABLET 100 MG PO (08:29)
[2022-11-05] MEDS: FOLIC ACID 1 MG TABLET PO (08:29)
[2022-11-05] MEDS: METOPROLOL SUCCINATE EXT REL 50 MG TABCR PO (08:29)
[2022-11-05] MEDS: sulfaSALAzine 500 MG TABLET PO ×3 (08:30→16:09)
[2022-11-05] MEDS: CALCIUM CARBONATE (OSCAL) 500 MG TABLET PO ×2 (08:30→16:09)
[2022-11-05] MEDS: lisinopriL 20 MG TABLET PO (08:30)
--- NOTE | 2022-11-05 09:34 | PM.PNCARD ---
Progress Note: A&P Assessment and Plan (1) Atrial fibrillation: Code(s): I48.91 - Unspecified atrial fibrillation Status: Acute Assessment and Plan: New diagnosis atrial fibrillation of unknown chronicity. No previous ECG available. He is rate controlled on his usual dose of metoprolol. Had an episode of RVR this morning, asymptomatic Continue metoprolol succinate 50mg daily [id number] score is 1 (HTN) anticoagulation is not indicated at this point. He would not be a good candidate if it were indicated as he falls very frequently As he cannot be anticoagulated, will continue with rate control strategy for now. If he acquires another risk factor and needs anticoagulation, will need to consider another strategy. Echo showed normal LVSF, trivial MR and TR OK for discharge today from a cardiac standpoint Subjective Date/time seen: 11/05/22 09:34 Interval history: Cardiology follow up for atrial fibrillation Feels well today. Having some back pain. Denies any palpitations, chest pain, shortness of breath. Review of Systems Review of Systems: All systems reviewed & are unremarkable except as noted in HPI and below Exam Const: General: comfortable, no acute distress, alert and awake Orientation/consciousness: patient oriented x3 HENMT: Head: normal to inspection Eyes: General: appearance normal, both eyes and all related structures Pupils: Equal, round and reactive pupils present Neck: Neck: normal visual inspection, supple and no JVD Carotids: normal carotid upstroke Resp: Effort & Inspection: normal respiratory effort Auscultation: clear to auscultation bilaterally Cardio: Rate: regular rate Rhythm: regular rhythm and abnormal rhythm irregularly irregular Heart sounds: S1 normal heart sound present, S2 normal heart sound present and Murmur heart sound present GI: Auscultation: normal bowel sounds Skin: General skin exam: normal color Neuro: General: patient oriented x3 Cranial nerves: Yes Equal, round and reactive pupils present Extrem: General: normal to inspection Psych: Appearance: grossly normal Mental Status: mental status grossly normal Objective Data Vital Signs Vital Signs: Vital Signs - 24 hr 11/04/22 14:00 11/04/22 16:02 11/04/22 20:00 Temperature 36.4 C L Pulse Rate 89 90 90 Respiratory Rate 20 20 Blood Pressure 124/83 Pulse Oximetry 100 100 Oxygen Delivery Room Air 11/04/22 20:52 11/04/22 20:00 11/05/22 00:00 Temperature 36.2 C L Pulse Rate 63 78 76 Respiratory Rate 16 Blood Pressure 129/82 Pulse Oximetry 100 Oxygen Delivery 11/05/22 04:21 11/05/22 04:00 11/05/22 08:29 Temperature 36.1 C L Pulse Rate 78 71 88 Respiratory Rate 16 Blood Pressure 127/98 H Pulse Oximetry 100 Oxygen Delivery Intake/Output Intake/Output: Intake & Output 11/02/22 11/03/22 11/04/22 11/05/22 23:59 23:59 23:59 23:59 Intake Total 240 1340 860 Output Total 350 0485 921 Balance -110 -1585 -65 Meds/Results Medications: Active Medications Generic Name Dose Route Start Last Admin Trade Name Stephania PRN Reason Stop Dose Admin Alendronate Sodium 70 mg 11/09/22 09:00 Alendronate Sodium 70 Mg Tablet PO WEEKLY [facility] Azathioprine 100 mg 11/04/22 09:00 11/05/22 08:29 Azathioprine 50 Mg Tablet PO 100 mg DAILY [facility] Administration Calcium Carbonate 500 mg 11/04/22 09:00 11/05/22 08:30 Calcium Carbonate (Oscal) 500 Mg Tablet PO 500 mg BID [facility] Administration Folic Acid 1 mg 11/04/22 09:00 11/05/22 08:29 Folic Acid 1 Mg Tablet PO 1 mg DAILY [facility] Administration Lisinopril 20 mg 11/04/22 09:00 11/05/22 08:30 Lisinopril 20 Mg Tablet PO 20 mg Q12HR [facility] Administration Metoprolol Succinate 50 mg 11/04/22 09:00 11/05/22 08:29 Metoprolol Succinate Ext Rel 50 Mg Tabcr PO 50 mg DAILY [facility] Administration Multivitamins/Calcium 1 tablet 11/04/22 09:00 11/05/22 08:29 Therap
--- NOTE | 2022-11-05 09:35 | PCPTNOTE ---
Per hospitalist OK to DC therapy orders due to pt and pt's family not wanting therapy at this time.
--- NOTE | 2022-11-05 09:53 | PM.IMPN ---
Progress Note: A&P Assessment and Plan (1) Acute hyponatremia: Code(s): E87.1 - Hypo-osmolality and hyponatremia Status: Acute Assessment and Plan: Acute on chronic hyponatremia 121 on admit, overcorrected to 132 with IV fluids. IV fluids stopped. 11/05: Nephrology on board. Patient 127 today s/p DDAVP and D5 bolus. (2) Atrial fibrillation: Code(s): I48.91 - Unspecified atrial fibrillation Status: Acute Assessment and Plan: New diagnosis atrial fibrillation of unknown chronicity. No previous ECG available. He is rate controlled on his usual dose of metoprolol. Continue metoprolol succinate 50mg daily [id number] score is 1 (HTN) anticoagulation is not indicated at this point. He would not be a good candidate if it were indicated as he falls very frequently As he cannot be anticoagulated, will continue with rate control strategy for now. If he acquires another risk factor and needs anticoagulation, will need to consider another strategy. 11/05: Echo: Summary ? 1. Normal left ventricular size thickness and systolic function. ? 2. Dilated left atrium. ? 3. Trivial mitral and tricuspid valve regurgitation. ? 4. Atrial fibrillation. (3) Back pain: Code(s): M54.9 - Dorsalgia, unspecified Status: Acute Assessment and Plan: Upper lumbar/lower thoracic back pain without midline tenderness or instability. No cauda equinus signs or symptoms. Unable to obtain MRI due to shunt in place that is not MRI safe. 11/05: Improved pain today, no new symptoms (4) Acute hip pain, bilateral: Code(s): M25.551 - Pain in right hip; M25.552 - Pain in left hip Status: Acute Assessment and Plan: Findings of osteoarthritis on x-ray no findings fracture or dislocation. 11/05: Pain improved today (5) Frequent falls: Code(s): R29.6 - Repeated falls Status: Acute Assessment and Plan: Related to chronic left extremity weakness and balance problems. Possibly related to acute on chronic hyponatremia. CHOKER SETTER shunt series normal CT of the head unchanged from previous. Left knee problems from prior surgery removing knee cap. 11/05: Refused therapy eval/treat. Orders discontinued. (6) CHOKER SETTER (ventriculoperitoneal) shunt status: Code(s): Z98.2 - Presence of cerebrospinal fluid drainage device Status: Acute Assessment and Plan: XR and CT stable (7) Ulcerative colitis: Code(s): K51.90 - Ulcerative colitis, unspecified, without complications Status: Acute Assessment and Plan: No GI bleeding or major abdominal pain--continue home medications (8) Hypertension: Code(s): I10 - Essential (primary) hypertension Status: Acute Assessment and Plan: Stable, continue home medications. Blood pressure reviewed on 11/05 Plan D/C when Nephrology OK with sodium levels Time Spent With Patient Time with patient: 25 - 35 minutes Subjective Date/time seen: 11/05/22 09:53 Interval history: This 47-year-old male patient admitted after multiple falls with acute on chronic hyponatremia. 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 Shunt series unremarkable. CT lumbar spine shows spondylosis with chronic appearing disc bulging. No symptoms cauda equina. Patient unable to undergo MRI as his CHOKER SETTER shunt is not MRI safe. He reports that his lumbar back pain is a little worse than usual after this fall but he does not have any numbness tingling saddle paresthesias bowel or bladder malfunction. He is concerned about his sodium levels being so low. He received IV fluids and now sodium has increased from 121 to 132. He denies headache or new/worsening symptoms. He has chronic left sided weakness since aneurysm rupture at age 12. No new weakness or worsening per patient and his mother. Patient/mother refusing PT/OT as it has not helped in the past. 11/05: Patient with no complaints today. Slept well
--- NOTE | 2022-11-05 11:12 | PM.PNNEP ---
Progress Note: A&P Assessment and Plan (1) Hyponatremia: Code(s): E87.1 - Hypo-osmolality and hyponatremia Status: Acute Assessment and Plan: acute on chronic baseline sodium runs ~ 124 - 132mmol/L noted overcorrection in the 24 hours since admission (121 -> 132) s/p D5W and DDAVP with improvement in sodium correction follow trend of repeat sodium levels (2) Atrial fibrillation: Code(s): I48.91 - Unspecified atrial fibrillation Status: Acute Assessment and Plan: new onset Cardiology following rate control strategy anticoagulation maybe an issues given fall risk (3) Hypertension: Code(s): I10 - Essential (primary) hypertension Status: Chronic Assessment and Plan: reasonable control continues current medications follow trend of hemodynamics (4) Frequent falls: Code(s): R29.6 - Repeated falls Status: Acute Assessment and Plan: fall precautions PT/OT as tolerated Will continue to follow. Subjective Date/time seen: 11/05/22 11:12 Interval history: Follow-up for acute on chronic hyponatremia and overcorrection. Sodium doing better following use of D5W IVFs and DDAVP; otherwise, no apparent distress noted; no other issues/events overnight or earlier this morning. Exam Narrative: General: WD/WN Caucasina male in NAD Heart: normal S1 and S2; no rub Lungs: clear to auscultation Abdomen: soft, nontender, nondistended, positive bowel sounds Extremities: no cyanosis or clubbing; no edema Skin: warm and dry Objective Data Vital Signs Vital Signs: Vital Signs Temp Pulse Resp BP Pulse Ox O2 Del Method 11/05/22 11:00 85 11/05/22 08:00 72 11/05/22 08:29 88 11/05/22 04:00 71 11/05/22 04:21 97 F L 78 16 127/98 H 100 11/05/22 00:00 76 11/04/22 20:00 78 11/04/22 20:52 97.2 F L 63 16 129/82 100 11/04/22 20:00 90 20 100 Room Air 11/04/22 16:02 90 11/04/22 14:00 97.5 F L 89 20 124/83 100 Intake/Output Intake/Output: Intake & Output 11/02/22 11/03/22 11/04/22 11/05/22 23:59 23:59 23:59 23:59 Intake Total 240 1340 860 Output Total 594 0045 925 [facility] -110 -1585 -65 Meds/Results Medications: Active Medications Generic Name Dose Route Start Last Admin Trade Name Stephania PRN Reason Stop Dose Admin Alendronate Sodium 70 mg 11/09/22 09:00 Alendronate Sodium 70 Mg Tablet PO WEEKLY [facility] Azathioprine 100 mg 11/04/22 09:00 11/05/22 08:29 Azathioprine 50 Mg Tablet PO 100 mg DAILY [facility] Administration Calcium Carbonate 500 mg 11/04/22 09:00 11/05/22 08:30 Calcium Carbonate (Oscal) 500 Mg Tablet PO 500 mg BID [facility] Administration Folic Acid 1 mg 11/04/22 09:00 11/05/22 08:29 Folic Acid 1 Mg Tablet PO 1 mg DAILY [facility] Administration Lisinopril 20 mg 11/04/22 09:00 11/05/22 08:30 Lisinopril 20 Mg Tablet PO 20 mg Q12HR [facility] Administration Metoprolol Succinate 50 mg 11/04/22 09:00 11/05/22 08:29 Metoprolol Succinate Ext Rel 50 Mg Tabcr PO 50 mg DAILY [facility] Administration Multivitamins/Calcium 1 tablet 11/04/22 09:00 11/05/22 08:29 Therapeutic Multivitamins/Minerals Tab (*Bkc) PO 1 tablet DAILY [facility] Administration Sulfasalazine 500 mg 11/04/22 09:00 11/05/22 12:22 Sulfasalazine 500 Mg Tablet PO 500 mg QID [facility] Administration Radiology Results: ITS Impressions Head CT 11/03/22 13:20 IMPRESSION: 1. Chronic encephalomalacia in left cerebellum and right parietal lobe. 2. Normal size of the ventricles with shunt in expected position. Lumbar Spine CT 11/03/22 13:23 IMPRESSION: 1. Moderate lumbar spondylosis. Imaging Shunt Series 11/03/22 13:47 IMPRESSION: 1. Ventriculoperitoneal shunt in expected position. Hip/Pelvis X-Ray 11/03/22 13:49 IMPRESSION: 1. Moderate right hip osteoarthritis and mild left hip osteoarthriti
--- NOTE | 2022-11-05 11:12 | P.PNNP_ITS ---
Progress Note: A&P Assessment and Plan (1) Hyponatremia: Code(s): E87.1 - Hypo-osmolality and hyponatremia Status: Acute Assessment and Plan: * acute on chronic * baseline sodium runs ~ 124 - 132mmol/L * noted overcorrection in the 24 hours since admission (121 -> 132) * s/p D5W and DDAVP with improvement in sodium correction * follow trend of repeat sodium levels (2) Atrial fibrillation: Code(s): I48.91 - Unspecified atrial fibrillation Status: Acute Assessment and Plan: * new onset * Cardiology following * rate control strategy * anticoagulation maybe an issues given fall risk (3) Hypertension: Code(s): I10 - Essential (primary) hypertension Status: Chronic Assessment and Plan: * reasonable control * continues current medications * follow trend of hemodynamics (4) Frequent falls: Code(s): R29.6 - Repeated falls Status: Acute Assessment and Plan: * fall precautions * PT/OT as tolerated Will continue to follow. Subjective Date/time seen: 11/05/22 11:12 Interval history: Follow-up for acute on chronic hyponatremia and overcorrection. Sodium doing better following use of D5W IVFs and DDAVP; otherwise, no apparent distress noted; no other issues/events overnight or earlier this morning. Exam Narrative: General: WD/WN Caucasina male in NAD Heart: normal S1 and S2; no rub Lungs: clear to auscultation Abdomen: soft, nontender, nondistended, positive bowel sounds Extremities: no cyanosis or clubbing; no edema Skin: warm and dry Objective Data Vital Signs Vital Signs: Vital Signs Temp Pulse Resp BP Pulse Ox O2 Del Method 11/05/22 11:00 85 11/05/22 08:00 72 11/05/22 08:29 88 11/05/22 04:00 71 11/05/22 04:21 97 F L 78 16 127/98 H 100 11/05/22 00:00 76 11/04/22 20:00 78 11/04/22 20:52 97.2 F L 63 16 129/82 100 11/04/22 20:00 90 20 100 Room Air 11/04/22 16:02 90 11/04/22 14:00 97.5 F L 89 20 124/83 100 Intake/Output Intake/Output: Intake & Output 0811/03/22 11/04/22 11/05/22 23:59 23:59 23:59 23:59 Intake Total 240 6800 860 Output Total 350 0975 926 [facility] [place] -110 -1585 -65 Meds/Results Medications: Active Medications Generic Name Dose Route Start Last Admin Trade Name Stephania PRN Reason Stop Dose Admin Alendronate Sodium 70 mg 11/09/22 09:00 Alendronate Sodium 70 Mg Tablet PO WEEKLY [facility] Azathioprine 100 mg 11/04/22 09:00 11/05/22 08:29 Azathioprine 50 Mg Tablet PO 100 mg DAILY [facility] Administration Calcium Carbonate 500 mg 11/04/22 09:00 11/05/22 08:30 Calcium Carbonate (Oscal) 500 Mg Tablet PO 500 mg BID [facility] Administration Folic Acid 1 mg 11/04/22 09:00 11/05/22 08:29 Folic Acid 1 Mg Tablet PO 1 mg DAILY [facility] Administration Lisinopril 20 mg 11/04/22 09:00 11/05/22 08:30 Lisinopril 20 Mg Tablet PO 20 mg Q12HR [facility] Administration Metoprolol Succinate 50 mg 11/04/22 09:00 11/05/22 08:29 Me
[2022-11-05 12:17] LABS: Sodium 129 mmol/L (137-145)
--- NOTE | 2022-11-05 16:09 | PM.DS ---
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 Ulcerative colitis Hypertension DS: Discharge Diagnosis Discharge Diagnosis (1) Acute hyponatremia: Code(s): E87.1 - Hypo-osmolality and hyponatremia Status: Acute (2) Atrial fibrillation: Code(s): I48.91 - Unspecified atrial fibrillation Status: Acute (3) Back pain: Code(s): M54.9 - Dorsalgia, unspecified Status: Acute (4) Acute hip pain, bilateral: Code(s): M25.551 - Pain in right hip; M25.552 - Pain in left hip Status: Acute (5) Frequent falls: Code(s): R29.6 - Repeated falls Status: Acute (6) 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 Hospital Course: This 47-year-old male patient admitted after multiple falls with acute on chronic hyponatremia.? 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 Shunt series unremarkable.? CT lumbar spine shows spondylosis with chronic appearing disc bulging.? No symptoms cauda equina.? Patient unable to undergo MRI as his PLASMA CUTTING MACHINE OPERATOR shunt is not MRI safe.? He reports that his lumbar back pain is a little worse than usual after this fall but he does not have any numbness tingling saddle paresthesias bowel or bladder malfunction. He is concerned about his sodium levels being so low. He received IV fluids and now sodium has increased from 121 to 132. He denies headache or new/worsening symptoms. He has chronic left sided weakness since aneurysm rupture at age 12. No new weakness or worsening per patient and his mother. Patient/mother refusing PT/OT as it has not helped in the past. 11/05:? Patient with no complaints today.? Slept well, no new concerns per patient.? Nephrology consulted for overcorrection of sodium.? Na better today at 127, increased to 129 at noon. Spoke with Dr. Gomez who is ok with patient discharge as he likely has very large range of sodium levels with frequent swings. Cardiology ok with discharge on home metoprolol, no anticoagulation due to CHADS VASC score of 1 and frequent falls. Anticoagulation more likely to result in bleeding from fall so starting anticoagulation is of higher risk than benefit at this time. Status at Discharge Cognitive/behavioral status at discharge: Awake, alert, oriented and pleasant. Functional status at discharge: wheelchair bound (sometimes ambulates at home but increased falls ) Overall status at discharge: patient is back to baseline Time Spent with Patient Time attestation: Total time spent providing and/or coordinating discharge services: Time spent: Greater than 30 minutes Exam Const: General: comfortable, no acute distress, alert and awake Orientation/consciousness: patient oriented x3 HENMT: Head: normal to inspection Eyes: General: appearance normal, both eyes and all related structures Pupils: Equal, round and reactive pupils present Neck: Neck: normal visual inspection, supple and no JVD Resp: Effort & Inspection: normal respiratory effort Auscultation: clear to auscultation bilaterally Cardio: Rate: regular rate Rhythm: regular rhythm Heart sounds: S1 normal heart sound present, S2 normal heart sound present and no murmurs GI: Auscultation: normal bowel sounds Skin: General skin exam: normal color Neuro: General: patient oriented x3 Cranial nerves: Yes Equal, round and reactive pupils present Speech: normal
[2022-11-06 14:41] LABS: Osmolality, Urine 174 mOsm/kg (50-1200)
== END 2022-11-05 16:55 | disposition home or self-care (01) | DRG 641 ==
LOC: ANHED 15:41 → ANH3MEDSUR 16:26
PROVIDERS: Internal Medicine Nephrology; Nurse Practitioner; Admitting Provider Hospitalist; Emergency Provider Student in an Organized Health Care Education/Training Program; PCP Family Medicine; Visit Provider Nurse Practitioner
DX: E87.1 Hypo-osmolality and hyponatremia (principal); K51.90 Ulcerative colitis, unspecified, without complications; I48.91 Unspecified atrial fibrillation; R29.6 Repeated falls; M54.9 Dorsalgia, unspecified; M81.0 Age-related osteoporosis without current pathological fracture; M16.0 Bilateral primary osteoarthritis of hip; I10 Essential (primary) hypertension; Z98.2 Presence of cerebrospinal fluid drainage device; Z87.820 Personal history of traumatic brain injury
CPT/HCPCS: 36415; 70250; 70450; 71045; 72131; 73521; 74018; 80048; 80053; 80069; 81003; 83735; 83935; 84295; 84300; 84443; 85025; 85027; 85652; 86140; 93005; 93970; 96365; 96372; 96375; 96376; 99285; A9270; C8929; G0378; J2597; J7030; J7060; J7070; Q9957

== ENCOUNTER 2023-02-10 09:31 | Outpatient (CLI) | payer OTHER, SELFPAY ==
--- NOTE | ~2023-02-10 | DEXA_ITS ---
Bone Density Report Name: LEELEE RUIZ Age: 47 Sex: Male Ethnicity: White Date of : 1975 Indication: monitoring treatment; height loss; inflammatory bowel disease; rheumatoid arthritis; Referring Provider: ANGELA, HARRIET Davis Study: Bone densitometry was performed. Exam Date: February 10, 2023 Accession number: [id number] Bone Density: Region BMD T-score Z-score Classification AP Spine(L1-L4) 1.161 0.6 0.9 Normal Femoral Neck (Left) 0.775 -1.1 -0.5 Osteopenia Total Hip (Left) 0.874 -1.1 -0.8 Osteopenia Femoral Neck (Right) 0.849 -0.6 0.1 Normal Total Hip (Right) 0.963 -0.5 -0.2 Normal Total Hip Mean 0.918 -0.8 -0.5 Normal World Health Organization criteria for BMD impression classify patients as: Normal (T-score at or above -1.0), Osteopenia (T-score between -1.0 and -2.5), or Osteoporosis (T-score at or below -2.5). 10-year Fracture Risk: FRAX not reported because: Man under age 50 Treated for osteoporosis Previous Exams: Region Exam Age BMD T-score BMD Change BMD Change Date g/cm2 vs Baseline vs Previous AP Spine (L1-L4) 02/10/2023 47 1.161 0.6 0.143 (14.1%)# -0.050 (-4.1%) 01/04/2021 45 1.210 1.1 0.193 (18.9%)# 0.002 (0.2%) 04/28/2018 42 1.208 1.1 0.191 (18.7%)# 0.067 (5.9%)* 09/05/2016 41 1.141 0.5 0.123 (12.1%)# 0.123 (12.1%)# 10/25/2011 36 1.018 Total Hip(Left) 02/10/2023 47 0.874 -1.1 0.059 (7.2%)# -0.004 (-0.4%) 01/04/2021 45 0.877 -1.0 0.062 (7.6%)# -0.053 (-5.7%) 04/28/2018 42 0.930 -0.7 0.115 (14.1%)# 0.016 (1.7%) 09/05/2016 41 0.915 -0.8 0.100 (12.2%)# 0.100 (12.2%)# 10/25/2011 36 0.815 Total Hip(Right) 02/10/2023 47 0.963 -0.5 -0.020 (-2.0%) -0.057 (-5.6%) 01/04/2021 45 1.020 -0.1 0.037 (3.8%)# -0.022 (-2.1%) 04/28/2018 42 1.042 0.1 0.059 (6.0%)# -0.019 (-1.8%) 09/05/2016 41 1.061 0.2 0.078 (7.9%)# 0.078 (7.9%)# 10/25/2011 36 0.983 *Denotes significance at 95% confidence level, LSC for AP Spine = 0.022 g/cm2, LSC for Total Hip = 0.027 g/cm2 # Denotes dissimilar scan types or analysis methods Clinical Information Provided by Patient: Has rheumatoid arthritis Is being treated for osteoporosis Has used the following medications: Fosamax (i.e. alendronate), Vitamin D, Calcium Has the following medical conditions: Inflammatory bowel diseases Patient maximum height was 70 Does not regularly consume dairy products Drinks caffeinated beverages
== END 2023-02-10 09:32 | disposition home or self-care (01) ==
LOC: ANHIMG 09:33
PROVIDERS: PCP Family Medicine; Visit Provider Nurse Practitioner Adult Health
DX: M81.0 Age-related osteoporosis without current pathological fracture (principal); M16.11 Unilateral primary osteoarthritis, right hip; M85.89 Other specified disorders of bone density and structure, multiple sites
CPT/HCPCS: 77080

== ENCOUNTER 2024-05-14 09:51 | Inpatient (IN) | payer BC, SELFPAY ==
[2024-05-14] VITALS (44 sets, daily range): BP systolic 113–184; BP diastolic 71–135; PULSE 87–142; RESP 12–44; TEMP 36.4–36.7; O2SAT 80–100; BMI 29.5
--- NOTE | ~2024-05-14 | XR_ITS ---
EXAMINATION: XR abdomen/kub 1V DATE: 05/15/2024 10:06 INDICATION: Nasogastric tube placement TECHNIQUE: A supine view of the abdomen was obtained. COMPARISON: CT dated 05/14/2024 FINDINGS: Nasogastric tube tip in proximal side port in the body the stomach. Distal portion of a ventricular d rain catheter coils in the right abdomen with distal tip below the right hemidiaphragm. No dilated lo ops of gas-filled bowel in the visualized abdomen to suggest obstruction. Cardiomegaly. Retrocardiac opacity left lower lung zone. IMPRESSION: 1. Nasogastric tube in stomach. 2. Cardiomegaly. 3. Retrocardiac opacity left lower lung zone which could represent persistent small pleural effusion, atelectasis or pneumonia. Reviewed, dictated and finalized at location A. AURANT MAINTENANCE TECHNICIAN IMPRESSION: 1. Nasogastric tube in stomach. 2. Cardiomegaly. 3. Retrocardiac opacity left lower lung zone which could represent persistent s mall pleural effusion, atelectasis or pneumonia.
--- NOTE | ~2024-05-14 | XR_ITS ---
EXAMINATION: XR barium swallow modified DATE: 05/18/2024 15:09 INDICATION: Dysphagia. TECHNIQUE: The patient was given barium-containing material of multiple consistencies to swallow by t he speech pathologist while I performed fluoroscopy. Fluoroscopy exposure time was 0.8 minutes. The n umber of fluoroscopy images saved to the PACS was 1. Dose-area product was 0.636 Gy-cm^2. FINDINGS: The oral stage, pharyngeal stage, and cervical/esophageal stage of the swallow are normal. IMPRESSION: 1. Normal modified barium swallow. 2. Please refer to the speech therapy report for recommendations. Reviewed, dictated and finalized at location A. LE PATTERNMAKER
--- NOTE | ~2024-05-14 | XR_ITS ---
Portable chest x-ray Comparison: 05/17/2024 Clinical History: Respiratory failure Findings: NG tube in satisfactory position. Endotracheal tube in place. Possible minimal central con gestive change. Cardiomediastinal silhouette is stable. Bones and soft tissues are unremarkable. Impression: Possible minimal central congestive change. Significant interval improvement in left lower lobe airsp anson disease since prior exam. NG tube in place. Reviewed, dictated and finalized at location . E BOX TENDER Impression: Possible minimal central congestive change. Significant interval improvement in left lower lobe airspace disease since prior exam. NG tube in place.
--- NOTE | ~2024-05-14 | US_ITS ---
EXAMINATION: US venous doppler [facility] DATE: 05/15/2024 12:21 INDICATION: Lower limb swelling TECHNIQUE: Grayscale ultrasound images without and with compression and Doppler ultrasound images of the bilateral lower extremity veins were obtained. COMPARISON: 11/04/2022 FINDINGS: The visualized portions of right common femoral vein, profunda (deep) femoral vein, femoral vein, pop liteal vein, posterior tibial veins, peroneal veins, gastrocnemius vein and greater saphenous vein ou tflow remain patent. The visualized portions of left common femoral vein, profunda femoral vein, femoral vein, popliteal v ein, posterior tibial veins, peroneal veins, gastrocnemius vein and greater saphenous vein outflow re main patent. IMPRESSION: 1. No deep venous thrombosis in either lower limb. Reviewed, dictated and finalized at location A. PURIFIER
--- NOTE | ~2024-05-14 | XR_ITS ---
Portable chest x-ray Comparison: 05/19/2024 Clinical History: Respiratory failure Findings: There is bibasilar hazy airspace disease, left worse than right. Cardiomediastinal silhou ette is stable. Bones and soft tissues are unremarkable. Impression: Probable bibasilar mild pulmonary edema, left worse than right. Correlate clinically for pneumonia. Reviewed, dictated and finalized at location . RONMENTAL SCIENCE TECHNICIAN Impression: Probable bibasilar mild pulmonary edema, left worse than right. Correlate clini margot for pneumonia.
--- NOTE | ~2024-05-14 | XR_ITS ---
Portable chest x-ray Comparison: 05/16/2024 Clinical History: Respiratory failure Findings: Endotracheal tube and NG tube are in satisfactory positions. There is retrocardiac consoli dation. Interval improvement in right basilar haziness. Possible small left pleural effusion. Cardio mediastinal silhouette is stable. Bones and soft tissues are unremarkable. Impression: Retrocardiac consolidation could reflect atelectasis/edema versus pneumonia. Minimal left pleural effusion. Interval improvement in haziness at the right lung base. Support tubes, as above. Reviewed, dictated and finalized at location . CLAMPER Impression: Retrocardiac consolidation could reflect atelectasis/edema versus pneumonia. Minimal left pleural effusion. Interval improvement in haziness at the right lung base. Support tubes, as above.
--- NOTE | ~2024-05-14 | CT_ITS ---
EXAMINATION: CTA chest PE protocol DATE: 05/14/2024 15:47 INDICATION: Hoarseness of breath. Cardiac arrest. TECHNIQUE: Computed tomography (CT) pulmonary angiogram of the chest was performed with 100 mL Omnipa que-350 intravenous contrast. Additional 3D reconstructions utilizing coronal maximum intensity proje ction (MIP) were performed. Automated exposure control and iterative reconstruction technique were em ployed. The dose-length product was 848.74 mGy-cm. COMPARISON: None FINDINGS: No evident pulmonary embolism. Sensitivity mildly decreased in the segmental pulmonary arteries and n ondiagnostic in the smaller subsegmental pulmonary arteries due to combination of good but suboptimal contrast opacification along with mild respiratory motion and streak artifact. Endotracheal tube tip 4.0 cm above the ping. Small to moderate-sized bilateral posterior layering pleural effusions with dependent compressive atelectasis in the upper and lower lobes. Superimposed pneumonia not excludabl e although suspicion is low. No septal line thickening to suggest pulmonary edema. Cardiomegaly. Athe rosclerotic coronary artery calcifications. No pericardial effusion. Thoracic aorta is normal in reynold norman with no dissection. There is occlusion of the distal left brachiocephalic vein with contrast exte nding through multiple mediastinal and paraspinal collaterals. Likely ventriculoperitoneal shunt ends craniocaudally along the anterior right chest wall. Mild thoracic spondylosis with chronic mild ante rior wedging at T12 and L1. IMPRESSION: 1. No evident pulmonary embolism. Sensitivity decreased in the segmental pulmonary arteries and nondi agnostic in many of the smaller subsegmental pulmonary arteries particularly in the lung bases due to combination of suboptimal contrast opacification, respiratory motion and streak artifact. 2. Small to moderate-sized bilateral pleural effusions with dependent compressive atelectasis. Diffic ult to exclude superimposed pneumonia although suspicion is low. 3. Cardiomegaly. 4. 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 ER CONTROL ENGINEER IMPRESSION: 1. No evident pulmonary embolism. Sensitivity decreased in the segmental pulmon dennis arteries and nondiagnostic in many of the smaller subsegmental pulmonary ar teries particularly in the lung bases due to combination of suboptimal contrast opacification, respiratory motion and streak artifact. 2. Small to moderate-sized bilateral pleural effusions with dependent compressi ve atelectasis. Difficult to exclude superimposed pneumonia although suspicion is low. 3. Cardiomegaly. 4. 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
--- NOTE | ~2024-05-14 | CT_ITS ---
EXAMINATION: CT brain wo con DATE: 05/14/2024 15:43 INDICATION: Acute change in mental status. TECHNIQUE: Computed tomography (CT) of the head was performed without intravenous contrast. The mA wa s adjusted according to patient size. Iterative reconstruction technique was employed. The dose-lengt h product was 908.00 mGy-cm. COMPARISON: Head CT 11/03/2022 FINDINGS: There is chronic encephalomalacia in the cerebellum, left worse than right. There is chroni c encephalomalacia in right parietal lobe. There is no intracranial hemorrhage, acute infarction, or abnormal intracranial mass lesion. There is 3 mm rightward midline shift at the foramen of Monro with out change. There is a right occipital shunt with tip in right lateral ventricle. The lateral ventric les and third ventricle are small. The orbits are normal. There is mild mucosal thickening in right m axillary sinus. The mastoid air cells are normal. There are changes of right-sided craniotomy. IMPRESSION: 1. 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 2. Small lateral and third ventricles, which is a change from the prior exam. Shunt catheter unchange d in position. Reviewed, dictated and finalized at location A. RICT WIRE CHIEF IMPRESSION: 1. 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 2. Small lateral and third ventricles, which is a change from the prior exam. S hamlin catheter unchanged in position.
--- NOTE | ~2024-05-14 | XR_ITS ---
Portable chest x-ray Comparison: 05/15/2024 Clinical History: Respiratory failure Findings: Endotracheal tube and NG tube are in satisfactory positions. 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 Small left pl eural effusion present with left lower lobe atelectasis. There is mild pulmonary edema. Cardiomedias tinal silhouette is stable. Bones and soft tissues are unremarkable. Impression: Mild pulmonary edema pattern with small left pleural effusion and left lower lobe atelectasis. Support tubes, as above. Reviewed, dictated and finalized at location . OR MECHANICAL DEVELOPMENT ENGINEER Impression: Mild pulmonary edema pattern with small left pleural effusion and left lower lo be atelectasis. Support tubes, as above.
--- NOTE | ~2024-05-14 | XR_ITS ---
CHEST RADIOGRAPH CLINICAL HISTORY: Intubation, tube placement . COMPARISON: 05/14/2024 approximately 2 hours earlier. TECHNIQUE: Single portable view of the chest. FINDINGS Endotracheal tube is identified with its tip projecting approximately 5 cm above the base of the ish na. The remainder of the cardiomediastinal silhouette is enlarged, but otherwise unremarkable. Ventriculoperitoneal shunt projecting over the right anterior chest wall and right upper quadrant of the abdomen. Airspace opacities with air bronchograms in the left upper and right lower lobes for which early infi ltrates are suspected. Redemonstration of bilateral small pleural effusions. IMPRESSION: Multifocal infiltrates with small bilateral pleural effusions. Endotracheal tube in good position, as detailed above. Reviewed, dictated and finalized at location A. NTRY OFFICER
--- NOTE | ~2024-05-14 | XR_ITS ---
Portable chest x-ray Comparison: 05/18/2024 Clinical History: Respiratory failure Findings: Lungs are clear, without focal consolidation or pleural effusion. Cardiomediastinal silho uette is stable. Bones and soft tissues are unremarkable. Impression: Clear lungs. Reviewed, dictated and finalized at [facility]. ET ASSISTANT PRESS OPERATOR Impression: Clear lungs.
--- NOTE | ~2024-05-14 | XR_ITS ---
EXAMINATION: XR chest 1V portable DATE: 05/14/2024 12:00 INDICATION: Shortness of breath. TECHNIQUE: A single frontal view of the chest was obtained on 2 radiographs. COMPARISON: Chest single view 11/03/2022, CT abdomen and pelvis 11/13/2017 FINDINGS: The lung volumes are small. There are airspace opacities in the perihilar regions. There is a small right pleural effusion. No pneumothorax. Cardiomegaly is noted. A right-sided ventricular pe ritoneal shunt is noted. There are old healed bilateral rib fractures. IMPRESSION: 1. Small lung volumes with airspace opacities in the perihilar regions, consistent with atelectasis v ersus mild pulmonary edema. 2. Small right pleural effusion. 3. Cardiomegaly. Reviewed, dictated and finalized at location A. ICAL SOCIAL WORKER IMPRESSION: 1. Small lung volumes with airspace opacities in the perihilar regions, consist ent with atelectasis versus mild pulmonary edema. 2. Small right pleural effusion. 3. Cardiomegaly.
--- NOTE | ~2024-05-14 | XR_ITS ---
XR abdomen/kub 1V Ordering provider: Meg Brar APRN History: . Urinary retention, r/o constipation . Comparison: May 15, 2024 FINDINGS: BOWEL: Nonobstructive bowel gas pattern. ORGANOMEGALY: None. SIGNIFICANT PATHOLOGIC CALCIFICATIONS: None. OTHER: No free air is seen under the diaphragm. IMPRESSION: NO ACUTE ABDOMINAL FINDINGS. Reviewed, dictated and finalized at location A.
--- NOTE | ~2024-05-14 | CT_ITS ---
EXAMINATION: CT abdomen pelvis w con DATE: 05/14/2024 13:27 INDICATION: Abnormal liver function tests. TECHNIQUE: Computed tomography (CT) of the abdomen and pelvis was performed with 100 mL Omnipaque 350 intravenous contrast. Automated exposure control and iterative reconstruction technique were employe d. The dose-length product was 1072.79 mGy-cm. COMPARISON: CT abdomen and pelvis 11/13/2017 FINDINGS: The visualized portions of the lung bases demonstrate septal thickening and groundglass opa cities, consistent with combination of atelectasis and pulmonary edema. There are small pleural effus ions. Cardiomegaly is noted. No pericardial effusion. The liver, spleen, pancreas, and adrenal glands are normal. There is cortical thinning of the kidneys. There are cysts in the kidneys measuring up t o 15 mm on the left. The bladder is markedly distended. The prostate is mildly enlarged. There is a l eft inguinal hernia containing fat. There are no dilated loops of bowel. The appendix is normal. Ther e are no pathologically enlarged lymph nodes. There is a ventriculoperitoneal shunt adjacent to the l iver with small volume of perihepatic ascites. There is mild thoracic and lumbar spondylosis. IMPRESSION: 1. Pulmonary edema. 2. Small pleural effusions. 3. Small volume of ascites. Reviewed, dictated and finalized at location A. ER RECRUITER
--- NOTE | ~2024-05-14 | XR_ITS ---
EXAMINATION: XR chest 1V portable DATE: 05/15/2024 06:11 INDICATION: Intubated TECHNIQUE: frontal view of the chest was obtained. COMPARISON: Chest radiograph and CT dated 05/14/2024 FINDINGS: Endotracheal tube tip 4.4 cm above the ping. Gradient of basilar predominant hazy airspace opacities in the left hemithorax consistent with small to moderate-sized posterior layering left pleural effusion. There is dense retrocardiac consolidation which could represent associated atelectasis and/or pneumonia. Small right pleural effusion. No pneu mothorax. Cardiomegaly. Ventricular peritoneal shunt projects over the right hemithorax and distally coiled in the right upper quadrant. Mild thoracic levoscoliosis. A few old bilateral rib fractures. IMPRESSION: 1. Retrocardiac consolidation in the left lower lung zone which could represent atelectasis or pneumo glendy. Small right and small to moderate-sized left pleural effusions. 3. Cardiomegaly. Reviewed, dictated and finalized at location A. NG SETTER IMPRESSION: 1. Retrocardiac consolidation in the left lower lung zone which could represent atelectasis or pneumonia. Small right and small to moderate-sized left pleural effusions. 3. Cardiomegaly.
--- NOTE | 2024-05-14 09:56 | ECG_ITS ---
Test Date: 2024-05-14 10:03:39 Measurements Intervals Alex Rate: 142 P: 0 AL: 0 QRS: 148 QRSD: 94 T: 28 QT: 304 QTc: 469 Interpretive Statements ATRIAL FIBRILLATION WITH RAPID VENTRICULAR RESPONSE INCOMPLETE RIGHT BUNDLE BRANCH BLOCK LEFT POSTERIOR FASCICULAR BLOCK BASELINE ARTIFACT- I, II, III, AVR, AVL, AVF, V1-V6 ABNORMAL ECG No previous ECG available for comparison Electronically Signed On 05-14-2024 10:34:10 [employer] by Joe Mathis D.O.
--- NOTE | 2024-05-14 10:06 | ED_ITS ---
HPI - General Adult General Chief complaint: Shortness of Breath/Dyspnea Stated complaint: weak, SOB x 1 wk Time Seen by Provider: 05/14/24 10:05 Source: patient, family and EMS Mode of arrival: EMS Limitations: no limitations History of Present Illness HPI narrative: 48 YEARS OLD WHITE MALE CAME TO THE ED BY AMBULANCE FROM HOME COMPLAINING OF NOT FEELING WELL FOR A WHILE, AND SHORTNESS OF BREATH ON EXERTION. HE DENIES CHEST PAIN. PATIENT CURRENTLY MAIN COMPLAINT IS FEELING TIRED AND WEAK. HISTORY OF BRAIN ANEURYSM STATUS POST BRAIN SURGERY WHEN HE WAS 12 YEARS OLD, PATIENT USES A WALKER AT HOME. HISTORY OF HYPERTENSION, DOES NOT SMOKE OR DRINK OR USE DRUGS. PATIENT ALSO COMPLAINING OF SWELLING OF THE LOWER EXTREMITY. CURRENTLY PATIENT IS AWAKE, ALERT ORIENTED X4, SLOWLY ANSWERING QUESTIONS Related Data Home Medications ?Medication ?Instructions ?Recorded ?Confirmed ?Last Taken ?Type adalimumab 40 mg/0.8 mL 40 mg subcut Q14D 03/19/19 11/03/22 06/05/20 History subcutaneous pen kit (Humira Pen) alendronate 70 mg tablet 70 mg PO WEEKLY 03/19/19 11/03/22 11/02/22 03:00 History folic acid 1 mg tablet 1 mg PO DAILY 03/19/19 11/03/22 10/27/22 08:00 History lisinopril 20 mg tablet 20 mg PO BID 03/19/19 11/03/22 11/03/22 03:00 History metoprolol succinate 25 mg 50 mg PO DAILY 03/19/19 11/03/22 11/03/22 03:00 History tablet,extended release 24 hr calcium carbonate (Calcium 500) 500 mg PO BID 03/25/19 11/03/22 11/03/22 03:00 History glucosamine-chondroitin 250 mg-200 2 tablet PO DAILY 03/25/19 11/03/22 11/03/22 03:00 History mg tablet (Osteo Bi-Flex) multivitamin,hm-fcqz-[id number] 1 tablet PO DAILY 03/25/19 11/03/22 11/03/22 03:00 History (Complete Multivitamin tablet) azathioprine 50 mg tablet (Imuran) 100 mg PO DAILY 06/06/20 11/03/22 11/03/22 History 0300 sulfasalazine 500 mg tablet 500 mg PO QID 11/03/22 11/03/22 11/03/22 08:00 History Allergies Allergy/AdvReac Type Severity Reaction Status Date / Time No Known Allergies Allergy Verified 11/03/22 17:39 Review of Systems 2 Review of Systems: All systems reviewed & are unremarkable except as noted in HPI and below PMFSH Past Medical History Medical History Frequent falls History of seizure Hx of traumatic brain injury Heart murmur Pulmonary nodule Osteoporosis Brain aneurysm Ulcerative colitis Hypertension Surgical History Surgical History H/O left knee surgery Hx of tracheostomy Hx of colonoscopy Hx of brain surgery S/P clamping of cerebral aneurysm Family History Family History Father Hypertension Family history of coronary artery disease Mother Hypertension Family history of coronary artery disease Grandparent Carcinoma of colon Diabetes mellitus Social History Social History Social History: The patient is currently living with his grandmother and helps to take care of her. The patient walks with a walker typically but has been in a wheelchair recently. Lifelong nonsmoker. He denies any alcohol marijuana or illicit drugs. The patient denies being on disability but is unemployed at this time Code status full code Smoking status: Never smoker Alcohol intake: never Substance use: never Substance use type: does not use Lack of Transportation: No Lack of Food: Never True Current Housing: I Have Housing Concerned About Future Housing: No Difficulty Paying Gas/Electric Bills: No Difficulty Paying for Meds: No Currently Unemployed: No Education: Trade/Vocational Certificate Difficulty w/ Childcare or Family Care: No Living arrangements: with family Gender identity (if verbalized by the patient): Male Spiritual care concerns: No Exam 2 Narrative: GENERAL APPEARANCE: WELL-DEVELOPED, WELL-NOURISHED SKIN: NORMAL COLOR 2+ EDEMA LOWER EXTREMITY BILATERALLY UP TO THE MID LEGS, BRUISES OF THE RIGHT KNEE ANTERIORLY HEAD: NORMOCEPHALIC, NONTRAUMATIC EYES: CLEAR CONJUNCTIVA ENT: OROPHARYNX NORMAL, EARS NORMAL, NOSE NORMAL NECK: SUPPLE, NONTENDER CHEST AND RESPIRATORY: AIRWAY PATENT, NO RESPIRATORY DISTRESS, NO ACCESSORY MUSCLE USE, DIMINUTION OF AIR ENTRY BILATERALLY, RALES AT THE BASES BILATERALLY HEART: TACHYCARDIA, IRREGULAR IRREGULARITY ABDOMEN: SOFT, NONTENDER, DISTENDED, NO ORGANOMEGALY, QUIET BOWEL SOUNDS VASCULAR: NORMAL PERIPHERAL PULSES, NORMAL CAPILLARY REFILL. MUSCULOSKELETAL: NORMAL RANGE OF MOTION, NONTENDER BACK NEUROLOGIC: ALERT AND ORIENTED ? 4, PERSONAL LINES AGENT IS NORMAL TESTED, NO GROSS MOTOR DEFICIT Course Consultations Consultation #1: DR FAN REQUESTED CT HEAD Date: 05/14/24 Vital Signs Vital signs: Vital Signs Temperature 36.7 C 05/14/24 09:56 Pulse Rate 126 H 05/14/24 09:56 Respiratory Rate 38 H 05/14/24 09:56 Blood Pressure 153/98 H 05/14/24 09:56 Pulse Oximetry 100 05/14/24 09:56 Oxygen Delivery Nasal Cannula 05/14/24 09:56 Oxygen Flow Rate 2 05/14/24 09:56 Temperature 36.7 C 05/14/24 09:56 Pulse Rate 111 H 05/14/24 17:19 Respiratory Rate 17 05/14/24 17:19 Blood Pressure 126/84 05/14/24 16:15 Pulse Oximetry 99 05/14/24 16:15 Oxygen Delivery Nasal Cannula 05/14/24 10:02 Oxygen Flow Rate 2 05/14/24 10:02 Procedures Central Line Placement Right Femoral: Central Line Date: 05/14/24 Central Line Time: 17:39 Discussed w/ the patient/family/POA,the placement of a central venous catheter, including its clinical necessity/indication & associated potential risks, benifits and alternatives.: Yes Time Out Performed: Yes (20) Patient Placed on Monitor/Pulse Ox: Yes Max. Sterile Barrier Technique: Caps, large sterile sheet and hand hygiene Central Line Prep: 2% chlorhexidine scrub and sterile drapes applied Technique: sterile prep/drape Local Anesthetic: none Ultrasound Used for Placement: No Central Line Lumen Inserted: triple Post Procedure: sutured in place, good blood return, all ports aspirated, flushed, capped and sterile dressing applied Patient Tolerated Procedure: well Intubation Intubation #1: Intubation Date: 05/14/24 Intubation Time: 15:09 sedative: Versed Mg Given: 4 paralytic: Succinylcholine Mg Given: 200 Laryngoscope: fiber optic video scope Assist Device Used: fiber optic device Tube Size (cm): 7.5 Method of Intubation: orotracheal Number of Attempts: 3 Tube Secured Depth (cm): 23 Tube Placement Confirmation: visualized tube passing through cords and equal breath sounds bilaterally Patient Tolerated Procedure: well Intubation Complications: none Medical Decision Making MDM Narrative Medical decision making narrative: PATIENT CAME WITH NOT FEELING WELL AND SHORTNESS OR BREATH VITAL SIGNS SHOWING BLOOD PRESSURE 153/98, HEART RATE 126 IRREGULAR IRREGULARITY, RESPIRATIONS 38 OTHERWISE WITHIN NORMAL LIMIT FOR PHYSICAL EXAMINATION SHOWING TACHYARRHYTHMIA, DIMINUTION OF AIR ENTRY BILATERALLY WITH BASILAR RALES DIFFERENTIAL DIAGNOSIS INCLUDE UPPER RESPIRATORY VIRAL INFECTION, TACHYARRHYTHMIA, , ELECTROLYTE IMBALANCE, DEHYDRATION, CORONARY ARTERY DISEASE, CONGESTIVE HEART FAILURE BLOOD WORKUP TODAY INCLUDES CBC, CMP, BNP, TROPONIN, TSH SHOWED WBC OF 18.5, SODIUM OF 120, POTASSIUM 5.4 TOTAL BILIRUBIN 2.4 AST 220 ALT 92 ,BNP 5130 VIRAL PANEL SHOWED CHEST X-RAY SHOWED PATIENT TESTED NEGATIVE FOR COVID, FLU AND RSV EKG SHOWED AFIB WITH RVR CARDIZEM BOLUS AND DRIP STARTED, HEART RATE STARTED IMPROVING, PATIENT STARTED FEELING AGITATED, SLIGHTLY RESTLESS, BECAUSE OF ELEVATED WBC AND BILIRUBIN AND LIVER ENZYMES, CT ABDOMEN AND PELVIS WITH IV CONTRAST ORDERED AND SHOWED PULMONARY EDEMA, PLEURAL EFFUSION AND SMALL VOLUME OF ASCITES. AFTER COMING BACK FROM THE RADIOLOGY DEPARTMENT PATIENT AGITATION GOT WORSE LOOKS LIKE HAVING VISUAL HALLUCINATION TRIED TO SKIP SCRATCH HIS BODY, STARTED HYPERVENTILATING, NOT RESPONDING TO SOFT RESTRAIN, OROTRACHEAL INTUBATION STARTED, PATIENT TOLERATED THE PROCEDURE WELL, PROPOFOL DRIP, CT HEAD WAS RECOMMENDED BY THE ICU PHYSICIAN AND SHOWED NO ACUTE ABNORMALITIES ADMIT TO ICU, DISCUSSED WITH DR. LUNA RIGHT FEMORAL CENTRAL LINE PLACED, NO COMPLICATION DIAGNOSIS CHF, NEW ONSET AFIB WITH RVR, HYPONATREMIA. PATIENT HAD HISTORY OF HYPONATREMIA IN THE PAST Differential Diagnosis Differential Diagnosis: ABOVE Vital Signs Vital Signs: Vital Signs Temperature 36.7 C 05/14/24 09:56 Pulse Rate 126 H 05/14/24 09:56 Respiratory Rate 38 H 05/14/24 09:56 Blood Pressure 153/98 H 05/14/24 09:56 Pulse Oximetry 100 05/14/24 09:56 Oxygen Delivery Nasal Cannula 05/14/24 09:56 Oxygen Flow Rate 2 05/14/24 09:56 Temperature 36.7 C 05/14/24 09:56 Pulse Rate 111 H 05/14/24 17:19 Respiratory Rate 17 05/14/24 17:19 Blood Pressure 126/84 05/14/24 16:15 Pulse Oximetry 99 05/14/24 16:15 Oxygen Delivery Nasal Cannula 05/14/24 10:02 Oxygen Flow Rate 2 05/14/24 10:02 Lab Data 05/14/24 10:49 05/14/24 10:49 Labs: Lab Results 05/14/24 05/14/24 05/14/24 Range/Units 10:49 11:37 11:38 WBC 18.5 H (4.5-10.0) K/mm3 RBC 4.31 L (4.6-6.20) M/mm3 Hgb 14.2 (14.0-18.0) g/dL Hct 40.5 L (42.0-52.0) % MCV 94.0 (80-100) fl MCH 32.9 (26-34) pg MCHC 35.1 (32-36) g/dl RDW 13.4 (11.5-14.5) % Plt Count 242 (150-375) k/mm3 MPV 11.7 H (7.4-10.4) fl Immature Gran % (Auto) 0.5 (0-0.5) % Neut % (Auto) 77.6 H (45.5-73.1) % Lymph % (Auto) 9.7 L (18.3-44.2) % [place] % (Auto) 12.0 H (2.6-8.5) % Eos % (Auto) 0.0 (0-4.4) % Baso % (Auto) 0.2 (0.2-1.2) % Lymph # (Auto) 1.80 (0.9-3.2) K/mm3 [place] # (Auto) 2.2 H (0.1-0.6) K/mm3 Eos # (Auto) 0.0 (0-0.3) K/mm3 Baso # (Auto) 0.0 (0.0-0.1) K/mm3 Abs Immat Gran (auto) 0.10 H (0.00-0.031) K/mm3 Absolute Neuts (auto) 14.4 H (1.3-6.7) K/mm3 Absolute Nucleated RBC 0.030 H (0.0-0.012) K/mm3 Nucleated RBC % 0.2 (0.0-0.2) % Sodium 120 L (137-145) mmol/L Potassium 5.4 H (3.4-5.0) mmol/L Chloride 81 L (98-107) mmol/L Carbon Dioxide 27 (22-30) mmol/L Anion Gap 12 (4-12) mmol/L BUN 23 H D (9-20) mg/dL Creatinine 0.80 (0.7-1.3) mg/dL Estim Creat Clear Calc Not Reportable Estimated GFR > 60 (59 - ) Glucose 78 (65-110) mg/dL Calcium 8.9 (8.4-10.2) mg/dL Total Bilirubin 2.4 H (0.2-1.3) mg/dL AST 220 H (17-59) U/L ALT 92 H (6-50) U/L Alkaline Phosphatase 74 (38-126) U/L NT-Pro-B Natriuret Pep 5130 H (19.9-100) pg/mL Total Protein 7.0 (6.3-8.2) g/dL Albumin 4.5 (3.5-5.1) g/dL TSH 4.390 (0.465-4.680) uIU/mL Influenza A (RT-PCR) Negative (Negative) Influenza B (RT-PCR) Negative (Negative) RSV (RT-PCR) Negative (Negative) SARS-CoV-2 RNA (RT-PCR) Negative (Negative) ECG Data EKG #1: Attestation: I personally reviewed and interpreted this ECG as follows: ECG completion date: 05/14/24 Interpretation: AFIB WITH RVR AT 142 BEATS PER MINUTE, INCOMPLETE RIGHT BUNDLE-BRANCH BLOCK, LEFT POSTERIOR FASCICULAR BLOCK, BASELINE ARTIFACT, ABNORMAL EKG, NO PREVIOUS EKG AVAILABLE FOR COMPARISON Critical Care Time Critical Care Time Critical Care Time: Yes Total Critical Care Time: 30 Discharge Plan Discharge Clinical Impression: Atrial fibrillation with rapid ventricular response, Hyponatremia, Acute alteration in mental status Patient Disposition: Still a Patient Condition: Stable
--- NOTE | 2024-05-14 10:30 | PC.NURSE ---
vascular access called for line and labs
[2024-05-14] MEDS: dilTIAZem 100 MG/100 ML 100 MG/100 ML BAG IV CONT (10:55)
[2024-05-14] MEDS: dilTIAZem HCl INJ 25 MG/5 ML VIAL 10 MG IV PUSH (10:57)
[2024-05-14 11:06] LABS: Basophils Percent Auto 0.2 % (0.2-1.2); Hematocrit 40.5 % (42.0-52.0); Hemoglobin 14.2 g/dL (14.0-18.0); Immature Granulocyte Percent A 0.5 % (0-0.5); Lymphocytes Percent Auto 9.7 % (18.3-44.2); Mean Corpuscular HGB Conc 35.1 g/dl (32-36); Mean Corpuscular Hemoglobin 32.9 pg (26-34); Mean Platelet Volume 11.7 fl (7.4-10.4); Monocytes Absolute Auto 2.2 K/mm3 (0.1-0.6); Neutrophils Absolute Auto 14.4 K/mm3 (1.3-6.7); Neutrophils Percent Auto 77.6 % (45.5-73.1); Nucleated Red Blood Cells Perc 0.2 % (0.0-0.2); Platelet Count Result 242 k/mm3 (150-375); Red Blood Count 4.31 M/mm3 (4.6-6.20); Red Cell Distribution Width 13.4 % (11.5-14.5); White Blood Count 18.5 K/mm3 (4.5-10.0)
[2024-05-14 11:13] LABS: Alanine Aminotransferase 92 U/L (6-50); Albumin Level 4.5 g/dL (3.5-5.1); Alkaline Phosphatase 74 U/L (38-126); Anion Gap 12 mmol/L (4-12); Aspartate Amino Transferase 220 U/L (17-59); Bilirubin,Total 2.4 mg/dL (0.2-1.3); Blood Urea Nitrogen 23 mg/dL (9-20); Calcium 8.9 mg/dL (8.4-10.2); Carbon Dioxide 27 mmol/L (22-30); Chloride 81 mmol/L (98-107); Estimated Glomerular Filt Rate > 60; Glucose 78 mg/dL (65-110); Potassium 5.4 mmol/L (3.4-5.0); Sodium 120 mmol/L (137-145)
[2024-05-14] MEDS: SODIUM CHLORIDE 0.9% IV 1,000 ML 150 ML IV CONT (11:53)
--- OUTSIDE RECORDS SUMMARY | 2024-05-14 12:10 | XMS_ITS | Referral Summary ---
Author Organization [facility] Address [address] [place] [address] Care Team Providers Care Box Hinge And Lock Attacher Name Role Phone Wayne Kurtz MD Primary Care Provider Allergies No known active allergies Medications alendronate (FOSAMAX) 70 mg tablet take 1 tablet by oral route every week in the morning, at least 30 min before first food, beverage, or medication of day 0 0 06/30/19 14 Active folic acid (FOLVITE) 400 mcg tablet take 1 tablet by oral route every day 0 0 06/30/19 14 Active Additional Information Patient taking differently:0.4 mgoral Daily (early AM), Reported on 02/02/2020 metoprolol XL (TOPROL-XL) 25 mg 24 hr tablet take 1 Tablet by oral route every day 0 0 10/27/19 14 Active Additional Information Patient taking differently: 50 mg oral Daily before breakfast, Reported on 02/18/2020 lisinopril (PRINIVIL,ZES TRIL) 20 mg tablet take 1 tablet by oral route every day 0 0 05/18/19 16 Active Additional Information Patient taking differently:20 mgoral 2 times daily, Reported on 02/02/2020 adalimumab (HUMIRA PEN) 40 mg/0.8 mL pen injector kitIndication s:Ulcerative Colitis Inject 40 mg under the skin every 2 (two) weeks 06/24/19 19 Active azaTHIOprine (IMURAN) 50 mg tablet Take 100 mg by mouth merit system director before breakfast 04/21/19 19 Active sulfaSALAzine (AZULFIDINE) 500 mg tablet TAKE 1 TABLET BY MOUTH FOUR TIMES DAILY 06/13/19 19 Active ondansetron (ZOFRAN) 4 mg tabletIndicat ions:Preventi on of Post-Operativ e Nausea and Vomiting Take 1 tablet (4 mg total) by mouth every 8 (eight) hours as needed for nausea or vomiting 12 tablet 02/09/20 20 Active HYDROcodone-a cetaminophen (NORCO) 10-325 mg per tabletIndicat ions:Pain Take 1 tablet by mouth every 4 (four) hours as needed (postop) 30 tablet 02/22/20 20 Active leg brace misc 1 Units daily 1 each 04/10/19 21 Active hydroCHLOROth iazide (HYDRODIURIL) 25 mg tablet hydrochlorothiazide 25 mg tablet Active rifAMPin (RIFADIN) 300 mg capsule daily Active senna-docusat e (PERICOLACE) 8.6-50 mg 2 tab, Tab, Oral, BID, 120 tab, 0 Refill(s), Route to Pharmacy Electronically, [id number], 178, 02/28/20 12:28:00 SCIENTIST, Height/Length Dosing, cm, 84.4, 02/28/20 12:28:00 SCIENTIST, Weight Dosing, kg 03/02/20 20 Active Active Problems Problem Noted Date Diagnosed Date Wound dehiscence 03/02/2020 At risk for venous thromboembolism (VTE) 020 Overview (08/24/2020): Problem added by Discern Expert Rule: [id number]_3 Patellar dislocation, left, subsequent encounter 01/18/2020 Overview (01/18/2020): Added automatically from request for surgery [id number] Charcot's joint of knee, left 01/18/2020 Overview (01/18/2020): Added automatically from request for surgery [id number] Cystic acne 12/02/2019 Hypertension 12/02/2019 Murmur 12/02/2019 Pulmonary stenosis 12/02/2019 Ulcerative colitis 12/02/2019 Mitral valve disease 04/26/2014 Overview (06/21/2016): Mitral valve disorder Social History Tobacco Use Types Packs/Day Years Used Date Smoking Tobacco: Never Smokeless Tobacco: Never Alcohol Use Standard Drinks/Week Comments No 0 (1 standard drink = 0.6 oz pur e alcohol) Sex and Gender Information Value Date Recorded Sex Assigned at Not on file Legal Sex Male 3:13 AM SCIENTIST Gender Identity Male 05/15/2020 1:43 PM SCIENTIST Sexual Orientation Straight 03/15/2021 6: 46 PM SCIENTIST Last Filed Vital Signs Vital Sign Reading Time Taken Comments Blood Pressure 135/78 02/22/2020 8:00 AM SCIENTIST Pulse 97 02/22/2020 8:00 AM SCIENTIST Temperature 37.1 C (98.8 F) 02/22/2020 8:00 AM SCIENTIST Respiratory Rate 16 02/22/2020 8:00 AM SCIENTIST Oxygen Saturation 95% 02/22/2020 8:00 AM SCIENTIST Inhaled Oxygen Concentration - - Weight 90.7 kg (199 lb 15.3 oz) 021 11:07 AM CDT Height 177.8 cm (5' 10 ) 05/29/2020 11: 07 AM CDT Body Mass Index 28.69 05/29/2020 11:07 AM CDT Plan of Treatment Not on file Insurance CIGNA CIGNA CIGNA Advance Directives For more information, please contact: [phone] * Full Code (Latest Code Status on File) Date Activated Date Inactivated Comments 02/18/2020 7:34 PM 02/22/2020 8:32 PM Care Teams Box Hinge And Lock Attacher Relationship Specialty Start Date End Date Wayne Kurtz MD PCP - General 05/26/15
--- OUTSIDE RECORDS SUMMARY | 2024-05-14 12:10 | XMS_ITS | Encounter Summary ---
Author Organization [facility] Address [address] [place] [address] Phone Care Team Providers Care Instrumentation Specialist Name Role Phone Wayne Kurtz MD Primary Care Provider Dayami Gill APRN, FINANCE BUSINESS PARTNER Unavailable [phone] Suman Becerra MD Unavailable [phone] Ngozi De Luna APRN, FINANCE BUSINESS PARTNER Unavailable Reason for Visit * Reason Comments Medication Refill Encounter Details Date Type Department Care Team (Late st Contact Info) Description 12/16/2022 Refill [facility] - [facility]enter[facility] [address] [place] [address] Suman Becerra MD [address] [place] [address] Medication Refill Social History Tobacco Use Types Packs/Day Years Used Date Smoking Tobacco: Never Smokeless Tobacco: Never Alcohol Use Standard Drinks/Week Comments No 0 (1 standard drink = 0.6 oz pur e alcohol) Sexually Active Control Partners Comments Not Currently Sex and Gender Information Value Date Recorded Sex Assigned at Not on file Legal Sex Male 9:07 PM CDT Gender Identity Not on file Sexual Orientation Not on file Occupation Industry Job Start Date Job End Date disabled Not on file Not on file Not on file documented as of this encounter Miscellaneous Notes * Telephone Encounter - Luiza Marcos RN - 12/16/2022 11:55 AM CDT Medication failed the protocol, provider to review and approve the medication order if appropriate. Requested Prescriptions Pending Prescriptions Disp Refills Humira Pen 40 MG/0.8ML Pen-injector Kit [Pharmacy Med Name: HUMIRA PEN 40 MG/0.8 ML] 2 Each Sig: INJECT 0.8 ML UNDER THE SKIN EVERY 14 DAYS Not Delegated - Anti-Rheumatics (excluding NSAIDs) Protocol Failed - 12/16/2022 6:42 AM Failed - This refill cannot be delegated Passed - Visit with relevant provider in past 12 months or upcoming 90 days Recent Visits Date Type Provider Dept 09/02/22 Office Visit Ngozi De Luna APRN, [facility] Showing recent visits within past 365 days and meeting all other requirements Future Appointments No visits were found meeting these conditions. Showing future appointments within next 90 days and meeting all other requirements documented in this encounter Plan of Treatment Upcoming Encounters Date Type Department Care Team (Late st Contact Info) Description 05/18/2024 3:30 PM CLAIM MANAGER Office Visit [facility] - [facility]enter[facility] - [place] [address] [place] [address] Ngozi De Luna APRN, FINANCE BUSINESS PARTNER [address] [place] [address] documented as of this encounter Visit Diagnoses Diagnosis Ulcerative pancolitis without complication (HCC) documented in this encounter Care Teams Instrumentation Specialist Relationship Specialty Start Date End Date Wayne Kurtz MD [address] [place] [id number] PCP - General Family Medicine 04/09/16 Dayami Gill APRN, FINANCE BUSINESS PARTNER [address] [place] [id number] Nurse Practitioner Advanced Practice Nurse 04/26/16 Suman Becerra MD [address] [place] [address] Consulting Physician Gastroenterology 05/24/21 Ngozi De Luna APRN, FINANCE BUSINESS PARTNER [address] [place] [address] Nurse Practitioner Advanced Practice Nurse 09/02/22 documented as of this encounter
--- OUTSIDE RECORDS SUMMARY | 2024-05-14 12:10 | XMS_ITS | Clinical Summary ---
Author Organization [facility] Address [address], [address] [address] Phone Care Team Providers Care Architecture Instructor Name Role Phone Wayne Kurtz MD Primary Care Provider [phone] Dayami Gill HUMAN RESOURCES BENEFITS COORDINATOR, SCOW CAPTAIN Unavailable [phone] Suman Becerra MD Unavailable [phone] Ngozi De Luna HUMAN RESOURCES BENEFITS COORDINATOR, SCOW CAPTAIN Unavailable Allergies No known active allergies Medications lisinopril (PRINIVIL, ZESTRIL) 20 MG Tablet 2 times daily. Ac tive alendronate (FOSAMAX) 70 MG Tablet every 7 days. Active folic acid (FOLVITE) 1 MG Tablet Take 1 mg by mouth daily. Active metoprolol Succinate (TOPROL-XL) 50 MG TABLET SR 24 HR Take 50 mg by mouth every morning. Active amLODIPine (NORVASC) 2.5 MG Tablet Take 2.5 mg by mouth daily. 05/02/19 22 Active atorvastatin (LIPITOR) 20 MG Tablet 05/24/19 22 Active adalimumab (Humira Pen) 40 MG/0.8ML Pen-injector KitIndications:Ulcer ative pancolitis without complication (HCC) 0.8 mL by Subcutaneous route every 14 days. 2 Each 3 03/28/19 24 Active Adalimumab-adbm, 2 Pen, 40 MG/0.8ML Auto-injector KitIndications:Ulcer ative pancolitis without complication (HCC) INJECT 40 MG (0.8 ML) UNDER THE SKIN EVERY 14 DAYS 2 Each 5 12/05/19 24 Active sulfaSALAzine (AZULFIDINE) 500 MG TabletIndications:Ul cerative pancolitis without complication (HCC),stage electrician (current) use of immunosuppressive biologic TAKE 1 TABLET FOUR TIMES DAILY 360 Tablet 3 12/15/19 24 Active azaTHIOprine (IMURAN) 50 MG TabletIndications:Ul cerative pancolitis without complication (HCC) TAKE 2 TABLETS DAILY 60 Tablet 11 04/08/19 25 Active Active Problems Problem Noted Date Diagnosed Date Ulcerative colitis Cystic acne Hypertension Pulmonary stenosis Murmur Encounters Date Type Department Care Team Description 04/08/2024 Refill [facility] - [facility] [address] [place] [address] Suman Becerra MD Medication Refill from Last 3 Months Immunizations Immunization Administration Dates Next Due Covid-19, Mrna, Lnp-s, Pf, 1 00 Mcg Or 50 Mcg Dose (MODERNA) 01/12/2021,12/14/2020 Family History Medical History Relation Name Comments Heart Attack Father Hypertension Mother Cancer Paternal Grandfather Colon Cancer Paternal Grandfather Relation Name Status Comments Father Mother Paternal Grandfather Social History Tobacco Use Types Packs/Day Years Used Date Smoking Tobacco: Never Smokeless Tobacco: Never Tobacco Cessation:Counseling Given: Not Answered Alcohol Use Standard Drinks/Week Comments No 0 [...] file Not on file Not on file Last Filed Vital Signs Vital Sign Reading Time Taken Comments Blood Pressure 148/82 11/11/2023 1:53 PM CDT Pulse 101 11/11/2023 1:53 PM CDT Temperature 37.1 C (98.7 F) 11/11/2023 1:53 PM CDT Respiratory Rate 14 11/11/2023 1:53 PM CDT Oxygen Saturation 98% 11/11/2023 1:53 PM CDT Inhaled Oxygen Concentration - - Weight 87.4 kg (192 lb 9.6 oz) 11/11/2023 1:53 P M CDT Height 175.3 cm (5' 9 ) 11/11/2023 1:53 PM CDT Body Mass Index 28.44 11/11/2023 1:53 PM CDT Plan of Treatment Upcoming Encounters Date Type Department Care Team (Late st Contact Info) Description 05/18/2024 3:30 PM ORDNANCE ARTIFICER HELPER Office Visit [facility] - [facility]enter[facility] [address] [place] [address] Ngozi De Luna APRN, SCOW CAPTAIN [address] [place] [address] Health Maintenance Due Date Last Done Comments TdaP Immunization 1975 Hepatitis B Immunization (1 of 3 - 19+ 3-dose series) 08/24/1995 SARS-COV-2 Immunization (3 - Moderna risk series) 02/09/2021 01/12/2021, 12/14/2020 Influenza Immunization (#1) 2023 Colonoscopy 08/05/2024 08/06/2023, 04/0 03/2020, 03/25/2019, Additional history exists Colorectal Cancer Screening 08/05/2024 Respiratory Syncytial Virus (RSV) Immunization (Adult) (1 - 1-dose 75+ series) 08/24/2051 08/06/2023, 04/0 03/2020, 03/25/2019, Additional history exists Hepatitis C Virus (HCV) Screening Completed 04/27/2018, 04/27/2018 Meningococcal Immunization (ACWY) Aged Out No longer eligible based on patient's age to complete this topic Pneumococcal Immunization Combined Aged Out No longer eligible based on patient's age to complete this topic Rotavirus Immunization Aged Out No lo nger eligible based on patient's age to complete this topic Procedures Procedure Name Priority Date/Time Associated Diagnosis Comments COLONOSCOPY Routine 06/15/2020 HEPATITIS PANEL ACUTE (AHP) Routine 04/27/2018 Ulcerative colitis without complications, unspecified location (HCC) High risk medication use from Last 3 Months or Most Recently Relevant to Health Maintenance Results * COLONOSCOPY (06/15/2020) Aquilino T Kltyrell DO PROCEDURE/MINOR SURGICAL ORDERA BLES Final Result * HEPATITIS PANEL ACUTE (AHP) (04/27/2018) Blood specimen (specimen) Gaby Marcano APRN, [facility] ORDERA BLES Final Result from Last 3 Months or Most Recently Relevant to Health Maintenance Insurance [facility] Care Teams Architecture Instructor Relationship Specialty Start Date End Date Wayne Kurtz MD [address] [place] [id number] PCP - General Family Medicine 04/09/16 Dayami Gill APRN, SCOW CAPTAIN [address] [place] [address] Nurse Practitioner Advanced Practice Nurse 04/26/16 Suman Becerra MD [address] [place] [address] Consulting Physician Gastroenterology 05/24/21 Ngozi De Luna APRN, SCOW CAPTAIN [address] [place] [address] Nurse Practitioner Advanced Practice Nurse 09/02/22
--- OUTSIDE RECORDS SUMMARY | 2024-05-14 12:10 | XMS_ITS | Encounter Summary ---
Author Organization [facility] Address [address] [place] [address] Phone Care Team Providers Care Risk Control Product Liability Director Name Role Phone Wayne Kurtz MD Primary Care Provider Dayami Gill APRN, NETWORK CONSULTANT Unavailable Suman Becerra MD Unavailable [phone] Ngozi De Luna APRN, NETWORK CONSULTANT Unavailable Reason for Visit * Reason Comments Medication Refill Encounter Details Date Type Department Care Team (Late st Contact Info) Description 04/01/2021 Refill [facility]enter[facility] - [place] [address] [place] [address] Komal Johnson, [facility] [address] [place] [address] Medication Refill Social History Tobacco Use Types [...] Telephone Encounter - Luiza Marcos RN - 04/02/2021 11:09 AM COLLECTION TECHNICIAN Pharmacy requesting refill of: Requested Prescriptions Pending Prescriptions Disp Refills ??? sulfaSALAzine (AZULFIDINE) 500 MG Tablet [Pharmacy Med Name: SULFASALAZINE 500MG TABLETS] 120 Tablet 0 Sig: TAKE 1 TABLET BY MOUTH FOUR TIMES DAILY Last fill: 03/02/2021 Patients last OV with GI: 10/02/2020 Next Office Visit with GI: None scheduled. CBC, CMP and UA labs printed from [facility] portal. Labs drawn on 02/13/2021. Will [address] on providers desk for review. Sulfasalazine order pended, please review. ECTION TECHNICIAN ECTION TECHNICIAN ECTION TECHNICIAN documented in this encounter Plan of Treatment Upcoming Encounters Date Type Department Care Team (Late st Contact Info) Description 05/18/2024 3:30 PM COLLECTION TECHNICIAN Office Visit [facility] [address] [place] [address] Ngozi De Luna APRN, NETWORK CONSULTANT [address] [place] [address] documented as of this encounter Visit Diagnoses Diagnosis Ulcerative pancolitis without complication (HCC) documented in this encounter Care Teams Risk Control Product Liability Director Relationship Specialty Start Date End Date Wayne Kurtz MD [address] [place] [address] PCP - General Family Medicine 04/09/16 Dayami Gill APRN, NETWORK CONSULTANT [address] [place] [address] Nurse Practitioner Advanced Practice Nurse 04/26/16 Suman Becerra MD [address] [place] [address] Consulting Physician Gastroenterology 05/24/21 Ngozi De Luna APRN, NETWORK CONSULTANT [address] [place] [address] Nurse Practitioner Advanced Practice Nurse 09/02/22 documented as of this encounter
--- OUTSIDE RECORDS SUMMARY | 2024-05-14 12:10 | XMS_ITS | Encounter Summary ---
Author Organization [facility] Address [address] [place] [address] Phone Care Team Providers Care Rn Faculty Name Role Phone Wayne Kurtz MD Primary Care Provider [phone] Dayami Gill APRN, ACCOUNTING SOFTWARE SPECIALIST Unavailable [phone] Suman Becerra MD Unavailable [phone] Ngozi De Luna APRN, ACCOUNTING SOFTWARE SPECIALIST Unavailable Reason for Visit * Reason Comments Medication Refill Encounter Details Date Type Department Care Team (Late st Contact Info) Description 05/17/2023 Refill [facility] - [facility]enter[facility] - [place] [address] [place] [address] Ngozi De Luna APRN, ACCOUNTING SOFTWARE SPECIALIST [address] [place] [address] Medication Refill Social History Tobacco Use Types [...] Telephone Encounter - Luiza Marcos RN - 05/21/2023 9:23 AM DRYING UNIT FELTING MACHINE OPERATOR Refill received from [facility] pharmacy for azathioprine, refill request asking for additional information for weight. Please see pended order. NG UNIT FELTING MACHINE OPERATOR documented in this encounter Plan of Treatment Upcoming Encounters Date Type Department Care Team (Late st Contact Info) Description 05/18/2024 3:30 PM DRYING UNIT FELTING MACHINE OPERATOR Office Visit [facility]astro[facility] [address] [place] [address] Ngozi De Luna APRN, ACCOUNTING SOFTWARE SPECIALIST [address] [place] [address] documented as of this encounter Visit Diagnoses Diagnosis Ulcerative pancolitis without complication (HCC) documented in this encounter Care Teams Rn Faculty Relationship Specialty Start Date End Date Wayne Kurtz MD [address] [place] [address] PCP - General Family Medicine 04/09/16 Dayami Gill APRN, ACCOUNTING SOFTWARE SPECIALIST [address] [place] [address] Nurse Practitioner Advanced Practice Nurse 04/26/16 Smuan Becerra MD [address] [place] [address] Consulting Physician Gastroenterology 05/24/21 Ngozi De Luna APRN, ACCOUNTING SOFTWARE SPECIALIST [address] [place] [address] Nurse Practitioner Advanced Practice Nurse 09/02/22 documented as of this encounter
--- OUTSIDE RECORDS SUMMARY | 2024-05-14 12:10 | XMS_ITS | Encounter Summary ---
Author Organization [facility] Address [address] [place] [address] Phone Care Team Providers Care Scaler Name Role Phone Wayne Kurtz MD Primary Care Provider Dayami Gill APRN, FLATWORK FEEDER Unavailable Suman Becerra MD Unavailable [phone] Ngozi De Luna APRN, FLATWORK FEEDER Unavailable Reason for Visit * Reason Comments Medication Refill Encounter Details Date Type Department Care Team (Late st Contact Info) Description 06/30/2021 Refill [facility] - [place] [address] [place] [address] Komal Johnson, [facility] [address] [place] [address] Medication Refill Social History Tobacco Use Types [...] Telephone Encounter - Luiza Marcos RN - 07/02/2021 10:30 AM CDT Images from the original note were not included. Pharmacy requesting refill of: Requested Prescriptions Pending Prescriptions Disp Refills ??? sulfaSALAzine (AZULFIDINE) 500 MG Tablet [Pharmacy Med Name: SULFASALAZINE 500MG TABLETS] 360 Tablet 0 Sig: TAKE 1 TABLET BY MOUTH FOUR TIMES DAILY Last fill: 04/03/2021 by Komal NGUYEN Patients last OV with GI: 05/24/[address] Becerra Next Office Visit with GI: Recall noted for follow up 11/22/2021. Medication failed protocol due to: Sulfasalazine Protocol Failed 06/30/2021 06:10 AM Protocol Details AST or ALT on record in past 6 months CBC on record in past 6 months Serum creatinine on record in past 12 months Urinalysis on record in past 12 months Visit with relevant provider in past 6 months or upcoming 90 days Patient noted to have CBC, CMP and UA scanned into epic. Labs done on 02/13/2021. Sulfasalazine order pended, please review. documented in this encounter Plan of Treatment Upcoming Encounters Date Type Department Care Team (Late st Contact Info) Description 05/18/2024 3:30 PM PREVENTATIVE MAINTENANCE TECHNICIAN Office Visit [facility] - Gastroenter[facility] [address] [place] [address] Ngozi De Luna APRN, FLATWORK FEEDER [address] [place] [address] documented as of this encounter Visit Diagnoses Diagnosis Ulcerative pancolitis without complication (HCC) documented in this encounter Care Teams Scaler Relationship Specialty Start Date End Date Wayne Kurtz MD [address] [place] [address] PCP - General Family Medicine 04/09/16 Dayami Gill APRN, FLATWORK FEEDER [address] [place] [address] Nurse Practitioner Advanced Practice Nurse 04/26/16 Suman Becerra MD [address] [place] [address] Consulting Physician Gastroenterology 05/24/21 Ngozi De Luna APRN, FLATWORK FEEDER [address] [place] [address] Nurse Practitioner Advanced Practice Nurse 09/02/22 documented as of this encounter
--- OUTSIDE RECORDS SUMMARY | 2024-05-14 12:10 | XMS_ITS | Clinical Summary ---
Author Organization [facility] Address [address] [place] [address] Care Team Providers Care State Farm Agent Name Role Phone Wayne Kurtz MD Primary [...] mg tablet Take 100 mg by mouth supervisor metal furniture fabrication before breakfast 04/21/19 19 Active sulfaSALAzine (AZULFIDINE) [...] tab, 0 Refill(s), Route to Pharmacy Electronically, [facility] #[id number], 178, 02/28/20 12:28:00 ACADEMIC RECORDS SPECIALIST, Height/Length Dosing, cm, 84.4, 02/28/20 12:28:00 ACADEMIC RECORDS SPECIALIST, Weight Dosing, kg 03/02/20 20 Active Active Problems Problem Noted Date Diagnosed Date Wound dehiscence 03/02/2020 At risk for venous thromboembolism (VTE) 020 Overview (08/24/2020): Problem added by Discern Expert Rule: [id number] Patellar dislocation, left, subsequent encounter 01/18/2020 Overview (01/18/2020): Added automatically from request for surgery [id number] Charcot's joint of knee, left 01/18/2020 Overview (01/18/2020): Added automatically from request for surgery [id number] Cystic acne 12/02/2019 Hypertension 12/02/2019 Murmur 12/02/2019 Pulmonary stenosis 12/02/2019 Ulcerative colitis 12/02/2019 Mitral valve disease 04/26/2014 Overview (06/21/2016): Mitral valve disorder Surgical History Surgery Date Site/Laterality Comments OTHER SURGICAL HISTORY OTHER SURGICAL HISTORY Cerebral aneurysm repair-shunt age 12 COLONOSCOPY Medical History Medical History Date Comments Ulcerative colitis (HCC) Ulcerat celina Colitis Hypertension Hypertension Family History Medical History Relation Name Comments Heart attack Father 2 Myocardial Infa rction; Cause of : Myocardial Infarction Colon cancer Maternal Grandmother 2 Cance r, colon; Hypertension Mother 2 Hypertension; Relation Name Status Comments Father 1 (Age 45) Father 2 Maternal Grandmother 1 Alive Maternal Grandmother 2 Mother 1 Alive Mother 2 Social History Tobacco Use Types Packs/Day Years Used Date Smoking Tobacco: Never Smokeless Tobacco: Never Alcohol Use Standard Drinks/Week Comments No 0 (1 standard drink = 0.6 oz pur e alcohol) Sex and Gender Information Value Date Recorded Sex Assigned at Not on file Legal Sex Male 3:13 AM ACADEMIC RECORDS SPECIALIST Gender Identity Male 05/15/2020 1:43 PM ACADEMIC RECORDS SPECIALIST Sexual Orientation Straight 03/15/2021 6: 46 PM ACADEMIC RECORDS SPECIALIST Obstetrics History Last Filed Vital Signs Vital Sign Reading Time Taken Comments Blood Pressure 135/78 02/22/2020 8:00 AM ACADEMIC RECORDS SPECIALIST Pulse 97 02/22/2020 8:00 AM ACADEMIC RECORDS SPECIALIST Temperature 37.1 C (98.8 F) 02/22/2020 8:00 AM ACADEMIC RECORDS SPECIALIST Respiratory Rate 16 02/22/2020 8:00 AM ACADEMIC RECORDS SPECIALIST Oxygen Saturation 95% 02/22/2020 8:00 AM ACADEMIC RECORDS SPECIALIST Inhaled Oxygen Concentration - - Weight 90.7 kg (199 lb 15.3 oz) 021 11:07 AM CDT Height 177.8 cm (5' 10 ) 05/29/2020 11: 07 AM CDT Body Mass Index 28.69 05/29/2020 11:07 AM CDT Plan of Treatment Health Maintenance Due Date Last Done Comments Colon Cancer Screening-Colonoscopy 1975 Depression Screening 1975 Hepatitis C Screening 1976 DTaP/Tdap/Td Vaccine (1 - Tdap) 08/24/1987 Hepatitis B Screening 1994 Regular Well Visit/Exam 18-64 1994 Pneumococcal vaccine <65 (1 of 2 - PCV) 08/24/1995 Zoster Vaccine (1 of 2) 08/24/1995 Covid-19 Vaccine (3 - Moderna risk series) 02/09/2021 01/12/2021, 12/14/2020 Influenza Vaccine (#1) 2023 Insurance CIGNA CIGNA CIGNA Advance Directives For more information, please contact: [phone] * Full Code (Latest Code Status on File) Date Activated Date Inactivated Comments 02/18/2020 7:34 PM 02/22/2020 8:32 PM Care Teams State Farm Agent Relationship Specialty Start Date End Date Wayne Kurtz MD PCP - General 05/26/15
--- OUTSIDE RECORDS SUMMARY | 2024-05-14 12:10 | XMS_ITS | Encounter Summary ---
Author Organization [facility] Address [address] [place] [address] Phone Care Team Providers Care Field Underwriter Name Role Phone Wayne Kurtz MD Primary Care Provider Dayami Gill APRN, SHUTTLE BUS DRIVER Unavailable Suman Becerra MD Unavailable [phone] Ngozi De Luna APRN, SHUTTLE BUS DRIVER Unavailable Reason for Visit * Reason Comments Medication Refill Encounter Details Date Type Department Care Team (Late st Contact Info) Description 05/05/2023 Refill [facility] - Gastroenterology - [place] [address] [place] [address] Ngozi De Luna APRN, SHUTTLE BUS DRIVER [address] [place] [address] Medication Refill Social History Tobacco Use Types [...] Telephone Encounter - Luiza Marcos RN - 05/09/2023 9:45 AM JINRIKSHA DRIVER Patient was last seen by Kathy De Luna NP on 09/02/2022. azathioprine order pended, please review andapprove. IKSHA DRIVER * Telephone Encounter - Suman Becerra MD - 05/06/2023 12:23 PM CST No more refills without follow-up IKSHA DRIVER * Telephone Encounter - Luiza Marcos RN - 05/05/2023 9:23 AM JINRIKSHA DRIVER Medication failed the protocol, provider to review and approve the medication order if appropriate. Requested Prescriptions Pending Prescriptions Disp Refills azaTHIOprine (IMURAN) 50 MG Tablet [Pharmacy Med Name: AZATHIOPRINE TABS 50MG] 60 Tablet 11 Sig: TAKE 2 TABLETS DAILY Not Delegated - Off Protocol Failed - 05/05/2023 4:02 AM Failed - This refill cannot be delegated Passed - Visit with relevant provider in past 12 months or upcoming 90 days Recent Visits Date Type Provider Dept 09/02/22 Office Visit Ngozi De Luna APRN, CNP [facility] [place] Showing recent visits within past 365 days and meeting all other requirements Future Appointments No visits were found meeting these conditions. Showing future appointments within next 90 days and meeting all other requirements IKSHA DRIVER documented in this encounter Plan of Treatment Upcoming Encounters Date Type Department Care Team (Late st Contact Info) Description 05/18/2024 3:30 PM JINRIKSHA DRIVER Office Visit [facility] - [place] [address] [place] [address] Ngozi De Luna APRN, SHUTTLE BUS DRIVER [address] [place] [address] documented as of this encounter Visit Diagnoses Diagnosis Ulcerative pancolitis without complication (HCC) documented in this encounter Care Teams Field Underwriter Relationship Specialty Start Date End Date Wayne Kurtz MD [address] [place] [address] PCP - General Family Medicine 04/09/16 Dayami Gill APRN, SHUTTLE BUS DRIVER [address] [place] [address] Nurse Practitioner Advanced Practice Nurse 04/26/16 Suman Becerra MD [address] [place] [address] Consulting Physician Gastroenterology 05/24/21 Ngozi De Luna APRN, SHUTTLE BUS DRIVER [address] [place] [address] Nurse Practitioner Advanced Practice Nurse 09/02/22 documented as of this encounter
[2024-05-14 12:18] LABS: NT Pro B Type Natriuretic Pept 5130 pg/mL (19.9-100)
[2024-05-14] MEDS: FUROSEMIDE INJ 40 MG/4 ML VIAL 60 MG IV PUSH (12:31)
[2024-05-14] MEDS: ENOXAPARIN 100 MG/ML SYRINGE SUB-Q (12:31)
[2024-05-14 13:16] LABS: Influenza A QL RT-PCR Negative (Negative); Influenza B QL RT-PCR Negative (Negative); RSV RNA, RT-PCR Negative (Negative); SARS-CoV-2 RNA PCR Negative (Negative)
[2024-05-14] MEDS: LORazepam INJ (*CRX) 2 MG/ML VIAL 1 MG IV PUSH (14:04)
--- NOTE | 2024-05-14 14:39 | P.HP_ITS ---
H&P: HPI History of Present Illness Date/Time: 05/14/24 14:39 Chief Complaint: Shortness of Breath Narrative: 48 y/o M presents here with shortness of breath and generalized weakness with PMH of TBI, seizure, osteoporosis, brain aneurysm (s/p surgery), ulcerative colitis, and hypertension. The patient presents here from home via EMS for further evaluation of shortness of breath and generalized weakness. HPI obtained through chart review and ED team report. The patient is seeking care today due to shortness of breath that has been ongoing for approximately 1 week. Reported the shortness of breath worsens with exertion and is accompanied by lower extremity swelling, generalized weakness, and fatigue. He has a history of TBI, WATER TAXI OPERATOR shunt, and brain aneurysm which was surgically clipped when he was 12 years old. Per ED provider documentation, the patient arrived A&O x4 but slow to answer questions. Workup initially significant for leukocytosis, significant tachycardia with EKG showing AFib RVR, hyponatremia (Na 120), mild hyperkalemia (5.4), and a BNP of 5130. Patient was started on diltiazem and was rate controlled. Shortly after CT the patient became agitated and increasingly short of breath. Per the bedside RN, the patient began pulling at lines and hallucinating. ER MD to the bedside and decision was made to intubate the patient. Patient had difficult airway which took 3 attempts. Patient was successfully intubated. Post intubation the patient became bradycardic in the 30s to 50s. The diltiazem gtt was stopped. HR now 90-111. Initial VS at presentation: 98.1? F, HR 126, RR 38, 153/98, and 100% on 2 L nasal cannula. ED workup showed: WBC 18.5, no anemia, sodium 120, potassium 5.4, creatinine 0.8 and GFR >60, total bilirubin 2.4, AST 220, ALT 92, BNP 5130, TSH 4.39, and viral PCR negative. CXR showed small lung volumes with airspace opacities in the by her E hilar region consistent with atelectasis versus mild pulmonary edema, small right pleural effusion, cardiomegaly. CT of the abdomen/pelvis showed pulmonary edema, small pleural effusions, small volume ascites. Review of Systems Review of Systems: All systems reviewed & are unremarkable except as noted in HPI and below PMFSH Past Medical History Medical History Frequent falls Atrial fibrillation Hyponatremia History of seizure Hx of traumatic brain injury Heart murmur Pulmonary nodule Osteoporosis Brain aneurysm Ulcerative colitis Hypertension Surgical History Surgical History WATER TAXI OPERATOR (ventriculoperitoneal) shunt status H/O left knee surgery Hx of tracheostomy Hx of colonoscopy Hx of brain surgery S/P clamping of cerebral aneurysm Family History Family History Father Hypertension Family history of coronary artery disease Mother Hypertension Family history of coronary artery disease Grandparent Carcinoma of colon Diabetes mellitus Social History Social History Social History: The patient is currently living with his grandmother and helps to take care of her. The patient walks with a walker typically but has been in a wheelchair recently. Lifelong nonsmoker. He denies any alcohol marijuana or illicit drugs. The patient denies being on disability but is unemployed at this time Code status full code Smoking status: Never smoker Alcohol intake: never Substance use: never Substance use type: does not use Lack of Transportation: No Lack of Food: Never True Current Housing: I Have Housing Concerned About Future Housing: No Difficulty Paying Gas/Electric Bills: No Difficulty Paying for Meds: No Currently Unemployed: No Education: Trade/Vocational Certificate Difficulty w/ Childcare or Family Care: No Living arrangements: with family Gender identity (if verbalized by the patient): Male Spiritual care concerns: No Meds Home Medications and Allergies Home Medications ?Medication ?Instructions ?Recorded ?Confirmed ?Type adalimumab 40 mg/0.8 mL 40 mg subcut Q14D 03/19/19 11/03/22 History subcutaneous pen kit (Humira Pen) alendronate 70 mg tablet 70 mg PO WEEKLY 03/19/19 05/14/24 History folic acid 1 mg tablet 1 mg PO DAILY 03/19/19 05/14/24 History lisinopril 20 mg tablet 20 mg PO BID 03/19/19 05/14/24 History calcium carbonate (Calcium 500) 500 mg PO BID 03/25/19 11/03/22 History glucosamine-chondroitin 250 mg-200 2 tablet PO DAILY 03/25/19 11/03/22 History mg tablet (Osteo Bi-Flex) multivitamin,[id number] 1 tablet PO DAILY 03/25/19 11/03/22 History (Complete Multivitamin tablet) azathioprine 50 mg tablet (Imuran) 100 mg PO DAILY 06/06/20 05/14/24 History sulfasalazine 500 mg tablet 500 mg PO QID 11/03/22 05/14/24 History metoprolol succinate 50 mg 50 mg PO DAILY 05/14/24 05/14/24 History tablet,extended release 24 hr Allergies Allergy/AdvReac Type Severity Reaction Status Date / Time No Known Allergies Allergy Verified 11/03/22 17:39 Vital Signs Vital Signs - 24 hr 05/14/24 09:56 05/14/24 10:02 05/14/24 10:55 Temperature 98.1 F Pulse Rate 126 H 136 H Respiratory Rate 38 H Blood Pressure 153/98 H 152/119 H Pulse Oximetry 100 99 Oxygen Delivery Nasal Cannula Nasal Cannula Oxygen Flow Rate 2 2 05/14/24 11:56 05/14/24 13:41 Temperature Pulse Rate 100 112 H Respiratory Rate 23 H 18 Blood Pressure 137/113 H 163/117 H Pulse Oximetry 100 97 Oxygen Delivery Oxygen Flow Rate Exam Const: General: comfortable and no acute distress Other: , male, ill appearing HENMT: Face/Nose/Sinus: Normal nares present Mouth: Yes dry mucous membranes Other: ETT in place Eyes: General: appearance normal, both eyes and all related structures Sclera: sclerae normal Pupils: Equal, round and reactive pupils present Other: pupils pinpoint. Resp: Effort & Inspection: normal respiratory effort Other: faint bibasilar crackles, no wheezing. tolerated vent well. Cardio: Rate: tachycardic Rhythm: abnormal rhythm Other: no murmur. GI: Other: abdomen soft, nondistended. Normoactive BS in all quadrants. Urinary Catheter: Urinary Catheter: patent and draining Skin: Other: ecchymosis in various stages of healing and erythema to bilateral knees, erythema worse compared to initial exam that took place post-intubation. no drainage. no other macular/erythematous patches. Neuro: Other: moving all extremities. reacts to pain. intubated/sedated. Extrem: Other: faintly palpable DP pulses bilaterally, R stronger than L. 2+ pitting edema to BLE, symmetric. Psych: Other: unable to assess H&P: Results Labs Labs: Short CBC 05/14/24 Range/Units 10:49 WBC 18.5 H (4.5-10.0) K/mm3 Hgb 14.2 (14.0-18.0) g/dL Hct 40.5 L (42.0-52.0) % Plt Count 242 (150-375) k/mm3 BMP 05/14/24 10:49 Sodium 120 L Potassium 5.4 H Chloride 81 L Carbon Dioxide 27 BUN 23 H D Creatinine 0.80 Glucose 78 Calcium 8.9 Liver Function 05/14/24 Range/Units 10:49 Total Bilirubin 2.4 H (0.2-1.3) mg/dL AST 220 H (17-59) U/L ALT 92 H (6-50) U/L Alkaline Phosphatase 74 (38-126) U/L Albumin 4.5 (3.5-5.1) g/dL Assessment and Plan Assessment and plan (1) Sepsis: Qualifiers: Sepsis acute organ dysfunction status: with acute organ dysfunction Sepsis type: sepsis due to unspecified organism Severe sepsis acute organ dysfunction type: encephalopathy Severe sepsis shock status: without septic shock Qualified Code(s): A41.9 - Sepsis, unspecified organism; R65.20 - Severe sepsis without septic shock; G93.41 - Metabolic encephalopathy Code(s): A41.9 - Sepsis, unspecified organism Status: Acute Assessment and Plan: - meets SIRS criteria: HR, RR, WBC. +hypoxia and alteration - patient has received fluids, will check procalcitonin - concern for CHF, will slowly fluid resuscitate at 100 mL/hour - suspected source: Pneumonia - started on cefepime, doxycycline, and vancomycin on 05/14 - blood cultures drawn on 05/14 - UA: Trace ketones, 2+ blood - CXR: 1. Small lung volumes with airspace opacities in the perihilar regions, consistent with atelectasis versus mild pulmonary edema. 2. Small right pleural effusion. 3. Cardiomegaly. - CT abd/pelvis: 1. Pulmonary edema. 2. Small pleural effusions. 3. Small volume of ascites - admission to the ICU for close hemodynamic monitoring (2) Acute alteration in mental status: Code(s): R41.82 - Altered mental status, unspecified Status: Acute Assessment and Plan: - head CT: 1. 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 2. Small lateral and third ventricles, which is a change from the prior exam. Shunt catheter unchanged in position. - patient now intubated and sedated, moving all extremities and A&Ox4 prior to intubation - history of WATER TAXI OPERATOR shunt - ABG, initial: - concern for sepsis due to leukocytosis, alteration, shortness of breath, and possible pneumonia on imaging DDx: Encephalopathy, WATER TAXI OPERATOR shunt malfunction, alteration secondary to hypoxia. Low suspicion for seizure, alteration without tremors or seizure-like activity. (3) Shortness of breath: Code(s): R06.02 - Shortness of breath Status: Acute Assessment and Plan: - CTA chest c/f pneumonia and bilateral pleural effusions - BNP 5130 most recent echo (10/2022): Normal LV size thickness and systolic function, dilated left atrium, trivial mitral and tricuspid valve regurgitation, AFib. Estimated EF 50-55%. start Lasix 40 mg IV daily monitor I&Os and daily weights trend renal function - abx initiated for HAP pna given patient's critical nature - Hgb 14.2 - viral pcr negative - ABG, initial: Suspect new onset CHF, obtaining echo. Complicated by possible pneumonia and AMS . (4) Acute brachiocephalic vein thrombosis: Code(s): I82.290 - Acute embolism and thrombosis of other thoracic veins Status: Acute Assessment and Plan: - CTA chest: 1. No evident pulmonary embolism. Sensitivity decreased in the segmental pulm onary arteries and nondiagnostic in many of the smaller subsegmental pulmonary arteries particularly in the lung bases due to combination of suboptimal contrast opacification, respiratory motion and streak artifact. 2. Small to moderate-sized bilateral pleural effusions with dependent compressive atelectasis. Difficult to exclude superimposed pneumonia although suspicion is low. 3. Cardiomegaly. 4. 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 Provider reviewed image and case and recommended heparin gtt only. No interventions indicated at this time. - monitor H&H and coags (5) Atrial fibrillation with rapid ventricular response: Code(s): I48.91 - Unspecified atrial fibrillation Status: Acute Assessment and Plan: - previous history of AFib documented on most recent previous admission in October of 2022 - EKG, initial: The AFib RVR, incomplete right bundle branch block, left posterior fascicular block, baseline artifact - initially started on diltiazem IV and gtt, bradycardiac post-intubation and d/c'd - trial metoprolol 5 mg IV if HR sustaining greater than 120 - telemetry monitoring (6) Pneumonia: Qualifiers: Laterality: bilateral Lung location: lower lobe of lung Pneumonia type: due to unspecified organism Qualified Code(s): J18.9 - Pneumonia, unspecified organism Code(s): J18.9 - Pneumonia, unspecified organism Status: Acute Assessment and Plan: - chest CTA showed bilateral pleural effusions with dependent compressive atelectasis, difficult to exclude superimposed pneumonia. - started on cefepime, vancomycin, and doxycycline on 05/14 - MRSA PCR and sputum culture - Viral PCR negative - currently intubated, wean O2 as tolerated, maintain O2 saturation greater than 92% (7) WATER TAXI OPERATOR (ventriculoperitoneal) shunt status: Code(s): Z98.2 - Presence of cerebrospinal fluid drainage device Status: Acute Assessment and Plan: - Head CT showing shunt in expected position, however ventricles smaller - acute alteration prior to intubation, c/f encephalopathy (8) Hyponatremia: Code(s): E87.1 - Hypo-osmolality and hyponatremia Status: Acute Assessment and Plan: - chronic - Na 120 - previous range in 2022: 121-132 - monitor (9) Hypertension: Qualifiers: Hypertension type: unspecified Qualified Code(s): I10 - Essential (primary) hypertension Code(s): I10 - Essential (primary) hypertension Status: Chronic Assessment and Plan: - chronic, currently 126/84 - hold home medications - monitor Plan Diet: NPO GI Prophylaxis: Pantoprazole DVT Prophylaxis: Heparin gtt Lines: Peripheral, right femoral central line Code Status: Full code Quality VTE Prophylaxis VTE prophylaxis: pharmacologic ordered Critical Care Time: I personally spent 70 minutes of direct patient care including (but not limited to) the physical examination, decision-making, bedside evaluation, review of medical records, review of labs and imaging, discussion with nursing staff and other providers for collaborative, critical care management of this patient. Hospitalist MIPS Advance Care Plan I have confirmed that the patient's Advanced Care Plan is present, code status is documented, or surrogate decision maker is listed in patient medical record.: Yes Medication Reconciliation I have utilized all available resources to obtain, update and review the patients current medications (includes all prescriptions, OTC, herbals, cannabis, and nutritional supplements).: Yes
[2024-05-14] MEDS: PROPOFOL IV EMULSION 100 ML 2.97 MG IV CONT (15:05)
--- NOTE | 2024-05-14 15:57 | PC.NURSE ---
1429-MD at bedside, crash cart, RSI kit and RT in room, soft wrist restraints applied due to pt's restlessness V/S HR 97, BP 176/121, Sp02 95% 1432-4mg Versed given per MD 1432-100mg Succinylcholine given per MD 1434-V/S HR 90, BP 184/134 1438-Anesthesia called to room per 1439-pt intubated 25 at the lip 1440-HR 58, HR dropped to 30's 1441-CPR started, code blue called 1442-V/S HR 112, Sp02 78% , BP 139/76 RT increased pt's 02 to 100% 1445-Xray to room 1449- V/S HR 109, R 21, Sp02 97%, 154/102 1505-propofol started per , VRBO to D/C diltiazem drip 1510- Temp herrera inserted
--- NOTE | 2024-05-14 16:22 | PC.NURSE ---
unable to place NG/OG tube
[2024-05-14 16:28] LABS: Alveolar/Arterial O2 Gradient 631.3 mmHg; Base Excess ABG 1.5 mEq/l (+/-2.0); Fractional Inspired Oxygen 100 %; HCO3 ABG 26.1 mEq/l (22.0-26.0); Oxygen Content ABG 12.5 %vol (16.0-22.0); PCO2 ABG 40.9 mmHg (35.0-45.0); PO2 FiO2 Ratio Arterial Blood 0.41 %
[2024-05-14 16:30] LABS: Oxygen Saturation ABG 77.2 % (95.0-100.0); PO2 ABG 40.8 mmHg (80.0-100.0)
[2024-05-14 16:31] LABS: Oxyhemoglobin 68.4 % THb (90.0-100.0); Site Drawn LEFT BRACHIAL
[2024-05-14 16:32] LABS: Device VENTILATOR
[2024-05-14 16:34] LABS: Arterial Blood Gas PEEP 5 cmH2O; Arterial Blood Gas Pressure Support 0 cmH2O; Arterial Blood Gas Tidal Volume 500 ml; Arterial Blood Gas Vent Mode CMV; Arterial Blood Gas Ventilator rate 16 /MIN; pH ABG 7.422 (7.350-7.450)
[2024-05-14 16:57] LABS: Add Urine Microscopic? YES; Appearance Urine Clear (Clear); Bacteria Urine None Seen /hpf; Bilirubin Urine Negative (Negative); Blood Urine 2+ (Negative); Color Urine Yellow (Yellow); Glucose Urine UA Negative (Negative); Ketones Urine Trace mg/dL (Negative); Leukocyte Esterase Ur Negative LEU/UL (Negative); Nitrate Urine Negative (Negative); Non Pathogenic Casts 0-2; Protein Urine Negative (Negative); RBC Urine 0-2 /hpf (0-2); Specific Grav Ur 1.031 (1.001-1.035); Squamous Epithelial Cell Urine None Seen /hpf (Few); Urobilinogen Urine 0.2 mg/dL (<2.0); WBC Urine 0-5 /hpf (0-3)
[2024-05-14] MEDS: PROPOFOL IV EMULSION 200 MG/20 ML VIAL 20 MG IV PUSH ×2 (17:18→17:21)
--- NOTE | 2024-05-14 17:46 | PC.NURSE ---
[address] Doyle for pt to get 20mg IVP propofol for central line placement. pt responding to painful stimuli [address] Doyle for pt to get 20mg IVP propofol for central line placement, pt still responding to painful simuli
--- NOTE | 2024-05-14 18:05 | ADMGEN ---
This patient, Moose Miranda, was admitted to Intensive Care Unit-11. Patient/family oriented to hospital policies and general routines including ID bracelet, bed and alarms, visiting hours, pain management, procedures, bathroom and other care routines, personal items, smoking policy, room service/diet, and visiting hours. Information on how to activate the Rapid Response Team has been discussed. Patient/Family are encouraged to report perceived risks to care and to ask questions if they do not understand what they are told or what they should do.
[2024-05-14] MEDS: HEPARIN SOD/D5W 100 UNITS/ML 25,000 UNITS/250 ML BAG 15 UNITS IV CONT (18:33)
[2024-05-14] MEDS: SODIUM CHLORIDE 0.9% IV 1,000 ML 100 ML IV CONT (18:46)
[2024-05-14 19:44] LABS: Anion Gap 10 mmol/L (4-12); Blood Urea Nitrogen 23 mg/dL (9-20); Calcium 8.1 mg/dL (8.4-10.2); Carbon Dioxide 27 mmol/L (22-30); Chloride 82 mmol/L (98-107); Estimated CRCL calculation 114 ml/min; Estimated Glomerular Filt Rate > 60; Glucose 68 mg/dL (65-110); Potassium 3.8 mmol/L (3.4-5.0); Sodium 119 mmol/L (137-145); Triglycerides 110 mg/dL (<150)
[2024-05-14 20:03] LABS: Procalcitonin 0.3 ng/mL
[2024-05-14 20:09] LABS: MRSA (PCR) NOT DETECTED (NOT DETECTE)
[2024-05-14] MEDS: MINERAL OIL/WHITE PETROLATUM OINTMENT 1 APPLIC EACH EYE (21:01)
[2024-05-14] MEDS: PROPOFOL IV EMULSION 100 ML 13.58 MG IV CONT (21:02)
[2024-05-14] MEDS: CENTRAL LINE FLUSH 10 ML IV PUSH (21:09)
[2024-05-14] MEDS: CEFEPIME 2 GM/NS 50 ML 2 GM/50 ML BAG IVPB (21:28)
[2024-05-14] MEDS: DOXYCYCLINE 100 MG/NS 100 ML 100 MG/100 ML BAG IVPB (22:04)
[2024-05-14] MEDS: VANCOMYCIN 1,250 MG/NS 250 ML 1,250 MG/250 ML BAG 166.67 MG IVPB ×2 (22:04→23:40)
[2024-05-14 23:52] LABS: Magnesium 1.7 mg/dL (1.6-2.3)
[2024-05-15] VITALS (33 sets, daily range): BP systolic 103–123; BP diastolic 62–89; PULSE 97–119; RESP 16–18; TEMP 36–36.6; O2SAT 96–100
[2024-05-15 00:32] LABS: Anion Gap 10 mmol/L (4-12); Blood Urea Nitrogen 21 mg/dL (9-20); Calcium 7.6 mg/dL (8.4-10.2); Carbon Dioxide 26 mmol/L (22-30); Chloride 85 mmol/L (98-107); Estimated CRCL calculation 115 ml/min; Estimated Glomerular Filt Rate > 60; Glucose 78 mg/dL (65-110); Potassium 3.3 mmol/L (3.4-5.0); Sodium 121 mmol/L (137-145)
[2024-05-15 00:38] LABS: Partial Thromboplastin Time 104.5 Seconds (22.3-36.8)
[2024-05-15] MEDS: MAGNESIUM SULF 1 GM/D5W 100 ML 1 GM/100 ML BAG IVPB (01:07)
[2024-05-15] MEDS: KCL 20 MEQ/SW 100 ML 100 ML 50 MEQ IVPB (01:08)
[2024-05-15] MEDS: PROPOFOL IV EMULSION 100 ML 13.58 MG IV CONT ×3 (04:08→14:33)
[2024-05-15 05:52] LABS: Alveolar/Arterial O2 Gradient 313.5 mmHg; Base Excess ABG 1.5 mEq/l (+/-2.0); Fractional Inspired Oxygen 70 %; HCO3 ABG 25.2 mEq/l (22.0-26.0); Oxygen Content ABG 18.7 %vol (16.0-22.0); Oxyhemoglobin 98.4 % THb (90.0-100.0); PCO2 ABG 36.7 mmHg (35.0-45.0); PO2 ABG 146.2 mmHg (80.0-100.0); PO2 FiO2 Ratio Arterial Blood 2.09 %; Total Hemoglobin 13.3 g/dL (12.0-18.0); pH ABG 7.454 (7.350-7.450)
[2024-05-15] MEDS: CEFEPIME 2 GM/NS 50 ML 2 GM/50 ML BAG IVPB ×3 (05:54→21:36)
[2024-05-15] MEDS: CENTRAL LINE FLUSH 10 ML IV PUSH ×3 (05:55→21:52)
[2024-05-15] MEDS: SODIUM CHLORIDE 0.9% IV 1,000 ML 100 ML IV CONT (05:55)
[2024-05-15 06:07] LABS: Device VENTILATOR; Modified Allen's Test Pass; Site Drawn RIGHT RADIAL
[2024-05-15 06:08] LABS: Arterial Blood Gas PEEP 5 cmH2O; Arterial Blood Gas Tidal Volume 500 ml; Arterial Blood Gas Vent Mode CMV; Arterial Blood Gas Ventilator rate 16 /MIN
[2024-05-15 06:16] LABS: Basophils Absolute Auto 0.1 K/mm3 (0.0-0.1); Basophils Percent Auto 0.3 % (0.2-1.2); Eosinophils Percent Auto 0.2 % (0-4.4); Hemoglobin 12.5 g/dL (14.0-18.0); Immature Granulocyte Absolute 0.11 K/mm3 (0.00-0.031); Immature Granulocyte Percent A 0.6 % (0-0.5); Lymphocytes Absolute Auto 1.35 K/mm3 (0.9-3.2); Lymphocytes Percent Auto 7.9 % (18.3-44.2); Mean Corpuscular HGB Conc 34.7 g/dl (32-36); Mean Corpuscular Hemoglobin 32.9 pg (26-34); Mean Corpuscular Volume 94.7 fl (80-100); Mean Platelet Volume 11.4 fl (7.4-10.4); Monocytes Absolute Auto 2.3 K/mm3 (0.1-0.6); Monocytes Percent Auto 13.7 % (2.6-8.5); Neutrophils Absolute Auto 13.2 K/mm3 (1.3-6.7); Neutrophils Percent Auto 77.3 % (45.5-73.1); Platelet Count Result 183 k/mm3 (150-375); Red Cell Distribution Width 13.5 % (11.5-14.5); White Blood Count 17.1 K/mm3 (4.5-10.0)
[2024-05-15 06:28] LABS: Alanine Aminotransferase 81 U/L (6-50); Albumin Level 3.1 g/dL (3.5-5.1); Alkaline Phosphatase 64 U/L (38-126); Anion Gap 7 mmol/L (4-12); Aspartate Amino Transferase 147 U/L (17-59); Bilirubin,Total 1.4 mg/dL (0.2-1.3); Blood Urea Nitrogen 19 mg/dL (9-20); Calcium 7.4 mg/dL (8.4-10.2); Carbon Dioxide 27 mmol/L (22-30); Chloride 88 mmol/L (98-107); Estimated CRCL calculation 126 ml/min; Estimated Glomerular Filt Rate > 60; Glucose 81 mg/dL (65-110); Magnesium 1.8 mg/dL (1.6-2.3); Phosphorus 2.5 mg/dL (2.5-4.5); Potassium 3.5 mmol/L (3.4-5.0); Sodium 122 mmol/L (137-145); Triglycerides 94 mg/dL (<150)
[2024-05-15 07:05] LABS: Partial Thromboplastin Time > 200.0 Seconds (22.3-36.8)
--- NOTE | 2024-05-15 07:30 | ECHO_ITS ---
Patient Info Name: Moose Miranda Age: 48 years : 1975 Gender: Male Ht: 69 in Wt: 202 lbs BSA: 2.14 m2 HR: 114 bpm BP: 123 / 89 mmHg Heart Rhythm: Atrial Fibrillation Technical Quality: Excellent Exam Date: 05/15/2024 10:53 AM Exam Location: Echo Lab Exam Room: ICU 11 Patient Status: Inpatient Admit Date: 05/14/2024 Staff Ordering Physician: Divina Gregorio MD Loom Operator: Maame Win RDCS Attending Provider: Divina Gregorio MD Exam Type: CA echo doppler color flow Study Info Indications - New onset afib Complete two-dimensional, color flow and Doppler transthoracic echocardiogram is performed. Summary 1. Complete two-dimensional, color flow and Doppler transthoracic echocardiogram is performed. 2. Left ventricular chamber dimension is mildly enlarged. 3. Left ventricular systolic function is moderately reduced, estimated at 35-40%. 4. There is mildly increased left ventricular wall thickness. 5. The left ventricular diastolic function is abnormal. 6. Left atrial chamber dimension is severely enlarged. 7. Right atrial chamber dimension is mildly enlarged. 8. There is moderate to severe mitral valve regurgitation. 9. There is mild tricuspid valve regurgitation. 10. Severe pulmonary hypertension, estimated pulmonary arterial systolic pressure is 72 mmHg. 11. There is mild pulmonic regurgitation. 12. Pleural effusion seen. Left Ventricle Left ventricular chamber dimension is mildly enlarged. Left ventricular systolic function is moderately reduced, estimated at 35-40%. There is mildly increased left ventricular wall thickness. The left ventricular diastolic function is abnormal. Right Ventricle Right ventricular chamber dimension is normal. Right ventricular systolic function is normal. Left Atria Left atrial chamber dimension is severely enlarged. Right Atria Right atrial chamber dimension is mildly enlarged. Atrial Septum Intact interatrial septum visualized by color flow imaging. Aortic Valve The aortic valve is trileaflet. There is mild aortic valve sclerosis. There is no aortic valve stenosis. There is trace aortic valve regurgitation. Pulmonic Valve The pulmonic valve is normal. There is no pulmonic valve stenosis. There is mild pulmonic regurgitation. Mitral Valve The mitral valve has normal leaflets. There is no mitral valve stenosis. There is moderate to severe mitral valve regurgitation. Tricuspid Valve The tricuspid valve leaflets are normal. There is no significant tricuspid valve stenosis. There is mild tricuspid valve regurgitation. Severe pulmonary hypertension, estimated pulmonary arterial systolic pressure is 72 mmHg. Pericardium/Pleural Pleural effusion seen. The pericardium appears normal. There is trivial pericardial effusion. Inferior Vena Cava Dilated inferior vena cava with <50% collapse upon inspiration consistent with elevated right atrial pressure, 15 mmHg. Aorta The aortic root size at the sinus of Valsalva is normal. Left Ventricular Outflow Tract Name Value Normal LVOT 2D LVOT Diameter 2.3 cm LVOT Doppler LVOT Peak Gradient 3 mmHg LVOT Mean Gradient 2 mmHg LVOT VTI 18 cm LVOT VTI/AV VTI Ratio 1.0 LVOT Stroke Volume 75 ml LVOT CO 7.1 l/min LVOT CI 3.3 l/min/m2 Pulmonic Valve Name Value Normal PV Doppler PV Peak Gradient 3 mmHg Mitral Valve Name Value Normal MV Doppler MV Peak Gradient 4 mmHg MV Mean Gradient 1 mmHg MV Decel Lamb 479 cm/s2 MV PHT 52 ms MV Area (PHT) 4.2 cm2 4.0-5.0 MV Area (Cont Eq VTI) 4.2 cm2 MV Regurgitation Doppler MR Peak Gradient 97 mmHg MV Diastolic Function MV E Peak Velocity 86 cm/s MV A Peak Velocity 37 cm/s MV E/A 2.3 MV Decel Time 179 ms MV Annular TDI MV E/e' (Septal) 19.4 <=8.0 MV E/e' (Lateral) 13.4 <=8.0 MV E/e' (Average) 16.4 Tricuspid Valve Name Value Normal TV Regurgitation Doppler TR Peak Velocity 378 cm/s TR Peak Gradient 57 mmHg Estimated PAP/RSVP RA Pressure 15 mmHg <=5 PA Systolic Pressure 72 mmHg <36 RV Systolic Pressure 72 mmHg <36 Aortic Valve Name Value Normal AV Doppler AV Peak Velocity 105 cm/s AV Peak Gradient 4 mmHg AV Mean Gradient 2 mmHg AV VTI 17 cm AV Area (Cont Eq VTI) 4.3 cm2 >=3.0 AV Area (Cont Eq David) 3.5 cm2 AV Regurgitation 2D LVOT Area 4.3 cm2 Ventricles Name Value Normal LV Dimensions 2D/MM IVS Diastolic Thickness (2D) 1.1 cm 0.6-1.0 LVID Diastole (2D) 5.8 cm 4.2-5.8 LVIW Diastolic Thickness (2D) 1.0 cm 0.6-1.0 LVID Systole (2D) 4.9 cm 2.5-4.0 LVOT Diameter 2.3 cm LV Mass (2D Cubed) 251.10 g 88.00-224.00 LV Mass Index (2D Cubed) 118 g/m2 49-115 Relative Wall Thickness (2D) 0.34 LV Fractional Shortening/Ejection Fraction 2D/MM LV Fractional Shortening (2D) 16 % 25-43 LV EF (2D Teichnohemyz) 33 % 52-72 LV Diastolic Volume (4C MOD) 190 ml LV EF (4C MOD) 59 % LV Diastolic Length (4C) 9.3 cm LV Systolic Length (4C) 8.4 cm LV Stroke Volume (4C MOD) 112 ml Atria Name Value Normal LA Dimensions LA Volume (4C A-L) 134 ml RA Dimensions RA Area (4C) 28.9 cm2 <=18.0 Report Signatures
[2024-05-15] MEDS: MINERAL OIL/WHITE PETROLATUM OINTMENT 1 APPLIC EACH EYE ×2 (08:11→21:52)
[2024-05-15] MEDS: PANTOPRAZOLE SODIUM IV 40 MG VIAL IV PUSH (08:11)
[2024-05-15] MEDS: DOXYCYCLINE 100 MG/NS 100 ML 100 MG/100 ML BAG IVPB ×2 (08:11→18:29)
[2024-05-15] MEDS: KCL 40 MEQ/WATER 100 ML 100 ML 25 ML IVPB (08:41)
[2024-05-15] MEDS: MAGNESIUM SULF 2 GM/WATER 50ML 2 GM/50 ML BAG IVPB (08:41)
--- NOTE | 2024-05-15 08:55 | WPDCNINT ---
Assessment and Plan Assessment and plan (1) Sepsis: Qualifiers: Sepsis type: sepsis due to unspecified organism Sepsis acute organ dysfunction status: with acute organ dysfunction Severe sepsis acute organ dysfunction type: encephalopathy Severe sepsis shock status: without septic shock Qualified Code(s): A41.9 - Sepsis, unspecified organism; R65.20 - Severe sepsis without septic shock; G93.41 - Metabolic encephalopathy Code(s): A41.9 - Sepsis, unspecified organism Status: Acute Assessment and Plan: Patient presented with shortness of breath, generalized weakness, acute altered mental status -tachycardia, elevated WBC count -chest CTA likely pneumonia, possible cellulitis of the right knee -continue cefepime, doxycycline, vancomycin (05/14) -blood pressures have remained stable not requiring pressors -05/14: Blood cultures have been obtained and pending -05/15: Sputum cultures obtained and pending - not requiring any pressors at this time -check venous Doppler (2) Acute respiratory failure: Code(s): J96.00 - Acute respiratory failure, unspecified whether with hypoxia or hypercapnia Status: Acute Assessment and Plan: Acute respiratory failure could be multifactorial, inflammation RVR, seizures, chronic encephalomalacia, -05/14: intubated in the ER -Todd currently on CMV mode of ventilation, peep of 5, 70% FiO2. -chest x-ray and ABGs reviewed, ventilator adjusted -will add bronchodilators -sedated with propofol, maintain RASS of 0 to -2, daily SBT and SAT 05/14/2024 CTA chest: IMPRESSION: 1. No evident pulmonary embolism. Sensitivity decreased in the segmental pulmonary arteries and nondiagnostic in many of the smaller subsegmental pulmonary arteries particularly in the lung bases due to combination of suboptimal contrast opacification, respiratory motion and streak artifact. 2. Small to moderate-sized bilateral pleural effusions with dependent compressive atelectasis. Difficult to exclude superimposed pneumonia although suspicion is low. 3. Cardiomegaly. 4. 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 2. Small lateral and third ventricles, which is a change from the prior exam. Shunt catheter unchanged in position. (4) Pneumonia: Qualifiers: Pneumonia type: due to unspecified organism Laterality: bilateral Lung location: lower lobe of lung Qualified Code(s): J18.9 - Pneumonia, unspecified organism Code(s): J18.9 - Pneumonia, unspecified organism Status: Acute Assessment and Plan: Continue antibiotics as above Sputum cultures have been obtained (5) Hyponatremia: Code(s): E87.1 - Hypo-osmolality and hyponatremia Status: Acute Assessment and Plan: Hyponatremia, multifactorial, could be related to pneumonia, SIADH, history of TBI, patient does have a history of hyponatremia in 2018, 2019, 2022 -currently on normal saline at 100 mL/hour -appropriate rise in sodium, 119 on admission 04/17/2021 this morning -nephrology has been consulted (6) Atrial fibrillation with rapid ventricular response: Code(s): I48.91 - Unspecified atrial fibrillation Status: Acute (7) Acute brachiocephalic vein thrombosis: Code(s): I82.290 - Acute embolism and thrombosis of other thoracic veins Status: Acute Assessment and Plan: Patient's face was cyanotic, CTA chest showed complete occlusion of distal left brachiocephalic vein, -hospitalist discussed with Vascular surgery at [facility] ([facility]), Dr. Laird, the surgeon reviewed images, recommended heparin gtt only. No interventions indicated at this time. -patient on heparin infusion -monitor coags Plan DVT prophylaxis: Heparin infusion Stress ulcer prophylaxis: Protonix IV Nutrition: Will start tube feed Code Status: Full code Critical Care Time Spent: 49 minutes Discussed with mother who is the primary big data solutions architect, updated her with patient's condition and plan of care. He is not nor does he have kids. Stays with his grandmother's house but the mother is the primary caregiver.. The mother states that he does not smoke tobacco use illicit drugs or drinks alcohol Due to a high probability of clinically significant, life threatening deterioration, the patient required my highest level of preparedness to intervene emergently and I personally spent this critical care time directly and personally managing the patient. This critical care time included obtaining a history; examining the patient; pulse oximetry; ordering and review of studies; arranging urgent treatment with development of a management plan; evaluation of patient's response to treatment; frequent reassessment; and discussions with other providers. It was exclusive of separately billable procedures and treating other patients and teaching time. Please see Assessment and Plan section and the rest of the note for further information on patient assessment and treatment This dictation may have been done utilizing a voice recognition system. Attempts have been made to correct errors. However, there may be uncorrected grammatical, spelling, and recognitions errors present. Oenologist Consult Note Consult date: 05/15/24 Reason for consult: Shortness of breath, generalized weakness, acute respiratory failure, atrial fibrillation RVR, pneumonia HPI: Moose Miranda is a 48 year old male with past medical history of traumatic brain injury, brain aneurysm status post surgery when he was 12 years of age, osteoporosis, seizures, ulcerative colitis, essential hypertension, presented the ED on 05/14/2024 with complains of shortness of breath and generalized weakness which has been ongoing for approximately 1 week. He did report shortness of breath worsens with exertion and lower extremity swelling along with generalized weakness and fatigue. Patient has a RESIDENTIAL PROPERTY TAX APPRAISER shunt secondary to a traumatic brain injury and a brain aneurysm when he was 12 years old. In the ER initially patient was alert and oriented x4. Shortly after CT scan he became agitated, with increasing shortness of breath, pulling on lines and hallucinating. ER physician intubated the patient. Patient had a difficult airway which took 3 attempts after which he was successfully intubated. Labs on admission: WBC 18.5, hemoglobin 14.2, platelets 242, sodium of 120, potassium 5.4, creatinine 0.80, total bilirubin 2.4, AST 220, ALT 92, proBNP 5130. TSH is 4.3, UA was unremarkable. MRSA was negative, influenza, RSV and SARS-CoV-2 PCR with negative Imaging on admission: CT brain: Chronic encephalomalacia in the cerebellum and right parietal lobe. 2. Small lateral and third ventricles, which is a change from the prior exam. Shunt catheter unchanged in position. CTA chest, abdomen and pelvis: 1. No evident pulmonary embolism. Sensitivity decreased in the segmental pulmonary arteries and nondiagnostic in many of the smaller subsegmental pulmonary arteries particularly in the lung bases due to combination of suboptimal contrast opacification, respiratory motion and streak artifact. 2. Small to moderate-sized bilateral pleural effusions with dependent compressive atelectasis. Difficult to exclude superimposed pneumonia although suspicion is low. 3. Cardiomegaly. 4. 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 Started on maintenance IV fluids with normal saline at 100 mL/hour. Patient also went to AFib RVR with heart rates in the 30s to 140s. Initially started him on diltiazem drip, after which the patient became bradycardic and the drip was stopped. Patient was transferred to the ICU for further management 03/19/2024: Patient seen and examined this morning in the ICU, remains intubated on CMV mode of ventilation, peep of 5 from 70% FiO2. Sedated with propofol. Patient does open his eyes and follows simple commands. Afebrile, adequate urine output. Hemodynamically stable: Remains in AFib with heart rates in the 100s to 110s. Sodium level 122 this morning, potassium 3.5, creatinine 0.62. T bili is trending down and so are the LFTs Review of Systems Review of Systems: ROS unobtainable: Yes unobtainable due to endotracheal tube and unobtainable due to medical condition PMFSH Past Medical History Medical History Frequent falls Atrial fibrillation Hyponatremia History of seizure Hx of traumatic brain injury Heart murmur Pulmonary nodule Osteoporosis Brain aneurysm Ulcerative colitis Hypertension Surgical History Surgical History RESIDENTIAL PROPERTY TAX APPRAISER (ventriculoperitoneal) shunt status H/O left knee surgery Hx of tracheostomy Hx of colonoscopy Hx of brain surgery S/P clamping of cerebral aneurysm Family History Family History Father Hypertension Family history of coronary artery disease Mother Hypertension Family history of coronary artery disease Grandparent Carcinoma of colon Diabetes mellitus Social History Social History Social History: The patient is currently living with his grandmother and helps to take care of her. The patient walks with a walker typically but has been in a wheelchair recently. Lifelong nonsmoker. He denies any alcohol marijuana or illicit drugs. The patient denies being on disability but is unemployed at this time Code status full code Smoking status: Never smoker Alcohol intake: unknown Substance use: unknown Substance use type: does not use Lack of Transportation: No Lack of Food: Never True Current Housing: I Have Housing Concerned About Future Housing: No Difficulty Paying Gas/Electric Bills: No Difficulty Paying for Meds: No Currently Unemployed: No Education: Trade/Vocational Certificate Difficulty w/ Childcare or Family Care: No Living arrangements: with family Gender identity (if verbalized by the patient): Male Spiritual care concerns: No Meds Home Medications and Allergies Home Medications ?Medication ?Instructions ?Recorded ?Confirmed ?Type adalimumab 40 mg/0.8 mL 40 mg subcut Q14D 03/19/19 11/03/22 History subcutaneous pen kit (Humira Pen) alendronate 70 mg tablet 70 mg PO WEEKLY 03/19/19 05/14/24 History folic acid 1 mg tablet 1 mg PO DAILY 03/19/19 05/14/24 History lisinopril 20 mg tablet 20 mg PO BID 03/19/19 05/14/24 History calcium carbonate (Calcium 500) 500 mg PO BID 03/25/19 11/03/22 History glucosamine-chondroitin 250 mg-200 2 tablet PO DAILY 03/25/19 11/03/22 History mg tablet (Osteo Bi-Flex) multivitamin,[id number] 1 tablet PO DAILY 03/25/19 11/03/22 History (Complete Multivitamin tablet) azathioprine 50 mg tablet (Imuran) 100 mg PO DAILY 06/06/20 05/14/24 History sulfasalazine 500 mg tablet 500 mg PO QID 11/03/22 05/14/24 History metoprolol succinate 50 mg 50 mg PO DAILY 05/14/24 05/14/24 History tablet,extended release 24 hr Allergies Allergy/AdvReac Type Severity Reaction Status Date / Time No Known Allergies Allergy Verified 05/14/24 22:41 Vital Signs Vital Signs - 24 hr 05/14/24 09:56 05/14/24 10:02 05/14/24 10:29 Temperature 98.1 F Pulse Rate 126 H 133 H Respiratory Rate 38 H 38 H Blood Pressure 153/98 H Pulse Oximetry 100 99 100 Oxygen Delivery Nasal Cannula Nasal Cannula Oxygen Flow Rate 2 2 Fraction of Inspired Oxygen 05/14/24 10:30 05/14/24 10:45 05/14/24 10:55 Temperature Pulse Rate 124 H 134 H 136 H Respiratory Rate 37 H 34 H Blood Pressure 152/119 H Pulse Oximetry 100 Oxygen Delivery Oxygen Flow Rate Fraction of Inspired Oxygen 05/14/24 10:57 05/14/24 11:27 05/14/24 11:30 Temperature Pulse Rate 131 H 97 87 Respiratory Rate 25 H 44 H 28 H Blood Pressure 152/119 H Pulse Oximetry 100 Oxygen Delivery Oxygen Flow Rate Fraction of Inspired Oxygen 05/14/24 11:31 05/14/24 11:56 05/14/24 12:20 Temperature Pulse Rate 99 100 100 Respiratory Rate 28 H 23 H 30 H Blood Pressure 134/108 H 137/113 H Pulse Oximetry 100 Oxygen Delivery Oxygen Flow Rate Fraction of Inspired Oxygen 05/14/24 12:42 05/14/24 13:00 05/14/24 13:01 Temperature Pulse Rate 108 H 93 101 H Respiratory Rate 26 H 27 H 29 H Blood Pressure 169/135 H Pulse Oximetry Oxygen Delivery Oxygen Flow Rate Fraction of Inspired Oxygen 05/14/24 13:15 05/14/24 13:30 05/14/24 13:31 Temperature Pulse Rate 121 H 121 H 106 H Respiratory Rate 37 H 25 H 29 H Blood Pressure 163/117 H Pulse Oximetry Oxygen Delivery Oxygen Flow Rate Fraction of Inspired Oxygen 05/14/24 13:41 05/14/24 13:45 05/14/24 13:55 Temperature Pulse Rate 112 H 140 H 130 H Respiratory Rate 18 28 H 22 H Blood Pressure 163/117 H 158/119 H Pulse Oximetry 97 Oxygen Delivery Oxygen Flow Rate Fraction of Inspired Oxygen 05/14/24 14:00 05/14/24 14:30 05/14/24 14:32 Temperature Pulse Rate 142 H 97 Respiratory Rate 29 H Blood Pressure 176/121 H 184/134 H Pulse Oximetry Oxygen Delivery Oxygen Flow Rate Fraction of Inspired Oxygen 05/14/24 14:33 05/14/24 14:44 05/14/24 14:45 Temperature Pulse Rate 97 112 H 117 H Respiratory Rate 12 24 H 25 H Blood Pressure 139/76 Pulse Oximetry 80 L 84 L Oxygen Delivery Oxygen Flow Rate Fraction of Inspired Oxygen 05/14/24 14:46 05/14/24 15:05 05/14/24 15:05 Temperature Pulse Rate 104 H 105 H 102 H Respiratory Rate 25 H 21 H Blood Pressure 154/102 H Pulse Oximetry 91 99 Oxygen Delivery Mechanical Ventilation Oxygen Flow Rate Fraction of Inspired Oxygen 100 05/14/24 15:13 05/14/24 15:16 05/14/24 15:31 Temperature Pulse Rate 103 H 99 98 Respiratory Rate 19 25 H 21 H Blood Pressure 130/85 Pulse Oximetry 99 Oxygen Delivery Oxygen Flow Rate Fraction of Inspired Oxygen 05/14/24 15:49 05/14/24 15:50 05/14/24 16:14 Temperature Pulse Rate 107 H 105 H 111 H Respiratory Rate 17 21 H Blood Pressure Pulse Oximetry 94 98 99 Oxygen Delivery Mechanical Ventilation Oxygen Flow Rate Fraction of Inspired Oxygen 100 05/14/24 16:15 05/14/24 17:19 05/14/24 18:05 Temperature Pulse Rate 106 H 111 H 111 H Respiratory Rate 27 H 17 17 Blood Pressure 126/84 Pulse Oximetry 99 Oxygen Delivery Oxygen Flow Rate Fraction of Inspired Oxygen 05/14/24 18:10 05/14/24 19:50 05/14/24 20:00 Temperature Pulse Rate 108 H 117 H Respiratory Rate Blood Pressure Pulse Oximetry 98 99 100 Oxygen Delivery Mechanical Ventilation Mechanical Ventilation Mechanical Ventilation Oxygen Flow Rate Fraction of Inspired Oxygen 100 100 100 05/14/24 20:00 05/14/24 20:00 05/14/24 20:00 Temperature 98.0 F Pulse Rate 114 H 114 H Respiratory Rate 16 Blood Pressure 113/71 Pulse Oximetry 100 Oxygen Delivery Oxygen Flow Rate Fraction of Inspired Oxygen 100 05/14/24 21:02 05/14/24 22:00 05/14/24 22:00 Temperature Pulse Rate 100 106 H 106 H Respiratory Rate 17 16 Blood Pressure Pulse Oximetry Oxygen Delivery Oxygen Flow Rate Fraction of Inspired Oxygen 05/14/24 22:00 05/14/24 22:30 05/15/24 00:00 Temperature 97.5 F L Pulse Rate 106 H 103 H Respiratory Rate 16 Blood Pressure 120/91 H Pulse Oximetry 100 100 100 Oxygen Delivery Mechanical Ventilation Mechanical Ventilation Oxygen Flow Rate Fraction of Inspired Oxygen 100 90 05/15/24 00:00 05/15/24 00:00 05/15/24 00:00 Temperature 97.1 F L Pulse Rate 110 H 110 H Respiratory Rate 16 Blood Pressure 119/85 Pulse Oximetry 100 Oxygen Delivery Oxygen Flow Rate Fraction of Inspired Oxygen 90 05/15/24 00:04 05/15/24 01:02 05/15/24 02:00 Temperature Pulse Rate 113 H 115 H 107 H Respiratory Rate 16 Blood Pressure Pulse Oximetry 100 Oxygen Delivery Mechanical Ventilation Oxygen Flow Rate Fraction of Inspired Oxygen 100 05/15/24 02:00 05/15/24 02:00 05/15/24 04:00 Temperature 97.0 F L Pulse Rate 107 H 107 H Respiratory Rate 16 16 Blood Pressure 117/76 Pulse Oximetry 100 100 Oxygen Delivery Mechanical Ventilation Oxygen Flow Rate Fraction of Inspired Oxygen 70 05/15/24 04:00 05/15/24 04:00 05/15/24 04:00 Temperature 97.0 F L Pulse Rate 111 H 111 H Respiratory Rate 16 Blood Pressure 109/69 Pulse Oximetry 100 Oxygen Delivery Oxygen Flow Rate Fraction of Inspired Oxygen 70 05/15/24 04:08 05/15/24 04:08 05/15/24 04:55 Temperature Pulse Rate 104 H 104 H 106 H Respiratory Rate 16 16 Blood Pressure Pulse Oximetry 100 Oxygen Delivery Mechanical Ventilation Oxygen Flow Rate Fraction of Inspired Oxygen 100 05/15/24 06:00 05/15/24 06:00 05/15/24 06:14 Temperature 96.8 F L Pulse Rate 109 H 109 H 104 H Respiratory Rate 16 16 Blood Pressure 123/89 Pulse Oximetry 99 Oxygen Delivery Oxygen Flow Rate Fraction of Inspired Oxygen 05/15/24 08:00 05/15/24 08:00 05/15/24 08:00 Temperature 96.8 F L Pulse Rate 111 H 111 H Respiratory Rate 16 16 Blood Pressure 118/86 Pulse Oximetry 99 Oxygen Delivery Oxygen Flow Rate Fraction of Inspired Oxygen 55 05/15/24 08:00 Temperature Pulse Rate Respiratory Rate Blood Pressure Pulse Oximetry 100 Oxygen Delivery Mechanical Ventilation Oxygen Flow Rate Fraction of Inspired Oxygen 55 Exam Narrative: General: Patient is intubated sedated in no acute distress HEENT:? Pupils equal reactive, sclera is clear, ETT in place Neck:? Tracheostomy scar noted Respiratory:? Coarse breath sounds bilateral bases, adequate air entry, no wheezing Cardiac:? Irregularly irregular, tachycardic Abdomen:? Soft, nontender, nondistended, normoactive bowel sounds Extremities:? Palpable pedal pulses, left knee more boggy with surgical scar. Right knee erythematous, warm Neuro:? Intubated sedated, Patient opens his eyes to name and follows simple commands Skin:? Erythematous skin on right knee, no other skin lesions noted Psych:? Unable to assess Results Labs 05/15/24 06:11 05/15/24 06:11 Labs: Short CBC 05/14/24 05/15/24 Range/Units 10:49 06:11 WBC 18.5 H 17.1 H (4.5-10.0) K/mm3 Hgb 14.2 12.5 L (14.0-18.0) g/dL Hct 40.5 L 36.0 L (42.0-52.0) % Plt Count 242 183 (150-375) k/mm3 BMP 05/14/24 05/14/24 05/15/24 10:49 18:52 00:18 Sodium 120 L 119 L* 121 L Potassium 5.4 H 3.8 3.3 L Chloride 81 L 82 L 85 L Carbon Dioxide 27 27 26 BUN 23 H D 23 H 21 H Creatinine 0.80 0.81 0.68 L Glucose 78 68 78 Calcium 8.9 8.1 L 7.6 L 05/15/24 06:11 Sodium 122 L Potassium 3.5 Chloride 88 L Carbon Dioxide 27 BUN 19 Creatinine 0.62 L Glucose 81 Calcium 7.4 L Liver Function 05/14/24 05/15/24 Range/Units 10:49 06:11 Total Bilirubin 2.4 H 1.4 H (0.2-1.3) mg/dL AST 220 H 147 H (17-59) U/L ALT 92 H 81 H (6-50) U/L Alkaline Phosphatase 74 64 (38-126) U/L Albumin 4.5 3.1 L (3.5-5.1) g/dL Urine 05/14/24 Range/Units 16:47 Urine Color Yellow (Yellow) Urine Appearance Clear (Clear) Urine pH 7.0 (5.0-9.0) Ur Specific [place] 1.031 (1.001-1.035) Urine Protein Negative (Negative) mg/dL Urine Glucose (UA) Negative (Negative) mg/dL Quality VTE Prophylaxis VTE prophylaxis: pharmacologic ordered Hospitalist MIPS Advance Care Plan I have confirmed that the patient's Advanced Care Plan is present, code status is documented, or surrogate decision maker is listed in patient medical record.: Yes Medication Reconciliation I have utilized all available resources to obtain, update and review the patients current medications (includes all prescriptions, OTC, herbals, cannabis, and nutritional supplements).: Yes
[2024-05-15] MEDS: VANCOMYCIN 1,500 MG/NS 500 ML 1,500 MG/500 ML BAG 250 MG IVPB ×2 (09:20→22:02)
--- NOTE | 2024-05-15 09:49 | P.CONNP_ITS ---
Assessment and Plan Assessment and plan (1) Hyponatremia: Code(s): E87.1 - Hypo-osmolality and hyponatremia Status: Acute Assessment and Plan: the patient has chronic hyponatremia. This is been going on for at least 8 years But no longer than 13 years. He most likely has multiple issues contributing to this including his [employer] issues with regards to the aneurysm clipping and removal of part of his cerebellum, and also possibly chronic pulmonary issues related to his sedentary lifestyle and chronic pleural effusions. He is not on any medications that do this. He does not have any history of cancer. Will check a TSH and cortisol for completeness. The patient has an exacerbation of the hyponatremia most likely related to his sepsis, pneumonia, and possibly prerenal factors. He has received some normal saline to help with the latter and he is on antibiotics and pulmonary support to help with the former to issues. I will also check serum and urine osmolality, TSH and cortisol, urine sodium, for now the patient's sodium has corrected by 3 in 18hours. This is a reasonable rate of correction. We can follow the sodium during the day and if the correction slows down we can add more to make a correct more quickly. discussed with Dr. Yao (2) Acute respiratory failure: Code(s): J96.00 - Acute respiratory failure, unspecified whether with hypoxia or hypercapnia Status: Acute Assessment and Plan: the patient is getting antibiotics, pulmonary toilet, and he is intubated. (3) Atrial fibrillation with rapid ventricular response: Code(s): I48.91 - Unspecified atrial fibrillation Status: Acute Assessment and Plan: The heart rate has come down some. He was on diltiazem but the heart rate went too low. Now he is just on metoprolol. (4) Hypertension: Qualifiers: Hypertension type: unspecified Qualified Code(s): I10 - Essential (primary) hypertension Code(s): I10 - Essential (primary) hypertension Status: Chronic Assessment and Plan: Blood pressure seems to have improved since admission. History of Present Illness Reason for Consult Consult date: 05/15/24 Chief Complaint Chief complaint: Afib w RVR/CHF/Hyponatremia/Acute Change of Mental History of Present Illness Narrative: Moose is an unfortunate 48-year-old gentleman who has hyponatremia. Mother and sister are in the room. The patient has multiple medical problems including chronic hyponatremia with low sodiums persistently since 2017. In 2012 the sodium levels were normal. 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 Patient also has had seizures, heart murmur, pulmonary nodule, ulcerative colitis, and hypertension. The patient is very stoic but from the history from the family his mother felt that he did not feel well a couple of days before admission. The patient did not want to go to the hospital. On the day of admission though the patient was more short of breath and just feeling poorly so they called 911 and brought him into the ER. In the ER he was found to have fluid overload shortness of breath and low sodium. They felt that he might be septic. He was admitted. He was given antibiotic. He was intubated to protect his airway and because of his shortness of breath. He was admitted to the ICU. Here the patient was given some IV fluids overnight because of his sepsis. His sodium level is 119 on admission and has risen a little bit to 122 today. His baseline sodium seems to run from 128-132. He has not been taking any diuretics, antidepressants, proton pump inhibitors, or narcotics. Review of Systems 2 Review of Systems: ROS unobtainable: Yes unobtainable due to endotracheal tube PMFSH Past Medical History Medical History (Updated 05/15/24 @ 09:59 by Clint Rice MD) Hyponatremia Frequent falls Atrial fibrillation History of seizure Hx of traumatic brain injury Heart murmur Pulmonary nodule Osteoporosis Brain aneurysm Ulcerative colitis Hypertension Surgical History Surgical History H/O left knee surgery Hx of tracheostomy Hx of colonoscopy Hx of brain surgery SERVICE [employer]ER CHIEF (ventriculoperitoneal) shunt status S/P clamping of cerebral aneurysm Family History Family History Father Hypertension Family history of coronary artery disease Mother Hypertension Family history of coronary artery disease Grandparent Carcinoma of colon Diabetes mellitus Social History Social History Social History: The patient is currently living with his grandmother and helps to take care of her. The patient walks with a walker typically but has been in a wheelchair recently. Lifelong nonsmoker. He denies any alcohol marijuana or illicit drugs. The patient denies being on disability but is unemployed at this time Code status full code Smoking status: Never smoker Alcohol intake: unknown Substance use: unknown Substance use type: does not use Lack of Transportation: No Lack of Food: Never True Current Housing: I Have Housing Concerned About Future Housing: No Difficulty Paying Gas/Electric Bills: No Difficulty Paying for Meds: No Currently Unemployed: No Education: Trade/Vocational Certificate Difficulty w/ Childcare or Family Care: No Living arrangements: with family Gender identity (if verbalized by the patient): Male Spiritual care concerns: No Meds Home Medications and Allergies Home Medications ?Medication ?Instructions ?Recorded ?Confirmed ?Type adalimumab 40 mg/0.8 mL 40 mg subcut Q14D 03/19/19 11/03/22 History subcutaneous pen kit (Humira Pen) alendronate 70 mg tablet 70 mg PO WEEKLY 03/19/19 05/14/24 History folic acid 1 mg tablet 1 mg PO DAILY 03/19/19 05/14/24 History lisinopril 20 mg tablet 20 mg PO BID 03/19/19 05/14/24 History calcium carbonate (Calcium 500) 500 mg PO BID 03/25/19 11/03/22 History glucosamine-chondroitin 250 mg-200 2 tablet PO DAILY 03/25/19 11/03/22 History mg tablet (Osteo Bi-Flex) multivitamin,[id number] 1 tablet PO DAILY 03/25/19 11/03/22 History (Complete Multivitamin tablet) azathioprine 50 mg tablet (Imuran) 100 mg PO DAILY 06/06/20 05/14/24 History sulfasalazine 500 mg tablet 500 mg PO QID 11/03/22 05/14/24 History metoprolol succinate 50 mg 50 mg PO DAILY 05/14/24 05/14/24 History tablet,extended release 24 hr Allergies Allergy/AdvReac Type Severity Reaction Status Date / Time No Known Allergies Allergy Verified 05/14/24 22:41 Vital Signs Vital Signs - 24 hr 05/14/24 09:56 05/14/24 10:02 05/14/24 10:29 Temperature 98.1 F Pulse Rate 126 H 133 H Respiratory Rate 38 H 38 H Blood Pressure 153/98 H Pulse Oximetry 100 99 100 Oxygen Delivery Nasal Cannula Nasal Cannula Oxygen Flow Rate 2 2 Fraction of Inspired Oxygen 05/14/24 10:30 05/14/24 10:45 05/14/24 10:55 Temperature Pulse Rate 124 H 134 H 136 H Respiratory Rate 37 H 34 H Blood Pressure 152/119 H Pulse Oximetry 100 Oxygen Delivery Oxygen Flow Rate Fraction of Inspired Oxygen 05/14/24 10:57 05/14/24 11:27 05/14/24 11:30 Temperature Pulse Rate 131 H 97 87 Respiratory Rate 25 H 44 H 28 H Blood Pressure 152/119 H Pulse Oximetry 100 Oxygen Delivery Oxygen Flow Rate Fraction of Inspired Oxygen 05/14/24 11:31 05/14/24 11:56 05/14/24 12:20 Temperature Pulse Rate 99 100 100 Respiratory Rate 28 H 23 H 30 H Blood Pressure 134/108 H 137/113 H Pulse Oximetry 100 Oxygen Delivery Oxygen Flow Rate Fraction of Inspired Oxygen 05/14/24 12:42 05/14/24 13:00 05/14/24 13:01 Temperature Pulse Rate 108 H 93 101 H Respiratory Rate 26 H 27 H 29 H Blood Pressure 169/135 H Pulse Oximetry Oxygen Delivery Oxygen Flow Rate Fraction of Inspired Oxygen 05/14/24 13:15 05/14/24 13:30 05/14/24 13:31 Temperature Pulse Rate 121 H 121 H 106 H Respiratory Rate 37 H 25 H 29 H Blood Pressure 163/117 H Pulse Oximetry Oxygen Delivery Oxygen Flow Rate Fraction of Inspired Oxygen 05/14/24 13:41 05/14/24 13:45 05/14/24 13:55 Temperature Pulse Rate 112 H 140 H 130 H Respiratory Rate 18 28 H 22 H Blood Pressure 163/117 H 158/119 H Pulse Oximetry 97 Oxygen Delivery Oxygen Flow Rate Fraction of Inspired Oxygen 05/14/24 14:00 05/14/24 14:30 05/14/24 14:32 Temperature Pulse Rate 142 H 97 Respiratory Rate 29 H Blood Pressure 176/121 H 184/134 H Pulse Oximetry Oxygen Delivery Oxygen Flow Rate Fraction of Inspired Oxygen 05/14/24 14:33 05/14/24 14:44 05/14/24 14:45 Temperature Pulse Rate 97 112 H 117 H Respiratory Rate 12 24 H 25 H Blood Pressure 139/76 Pulse Oximetry 80 L 84 L Oxygen Delivery Oxygen Flow Rate Fraction of Inspired Oxygen 05/14/24 14:46 05/14/24 15:05 05/14/24 15:05 Temperature Pulse Rate 104 H 105 H 102 H Respiratory Rate 25 H 21 H Blood Pressure 154/102 H Pulse Oximetry 91 99 Oxygen Delivery Mechanical Ventilation Oxygen Flow Rate Fraction of Inspired Oxygen 100 05/14/24 15:13 05/14/24 15:16 05/14/24 15:31 Temperature Pulse Rate 103 H 99 98 Respiratory Rate 19 25 H 21 H Blood Pressure 130/85 Pulse Oximetry 99 Oxygen Delivery Oxygen Flow Rate Fraction of Inspired Oxygen 05/14/24 15:49 05/14/24 15:50 05/14/24 16:14 Temperature Pulse Rate 107 H 105 H 111 H Respiratory Rate 17 21 H Blood Pressure Pulse Oximetry 94 98 99 Oxygen Delivery Mechanical Ventilation Oxygen Flow Rate Fraction of Inspired Oxygen 100 05/14/24 16:15 05/14/24 17:19 05/14/24 18:05 Temperature Pulse Rate 106 H 111 H 111 H Respiratory Rate 27 H 17 17 Blood Pressure 126/84 Pulse Oximetry 99 Oxygen Delivery Oxygen Flow Rate Fraction of Inspired Oxygen 05/14/24 18:10 05/14/24 19:50 05/14/24 20:00 Temperature Pulse Rate 108 H 117 H Respiratory Rate Blood Pressure Pulse Oximetry 98 99 100 Oxygen Delivery Mechanical Ventilation Mechanical Ventilation Mechanical Ventilation Oxygen Flow Rate Fraction of Inspired Oxygen 100 100 100 05/14/24 20:00 05/14/24 20:00 05/14/24 20:00 Temperature 98.0 F Pulse Rate 114 H 114 H Respiratory Rate 16 Blood Pressure 113/71 Pulse Oximetry 100 Oxygen Delivery Oxygen Flow Rate Fraction of Inspired Oxygen 100 05/14/24 21:02 05/14/24 22:00 05/14/24 22:00 Temperature Pulse Rate 100 106 H 106 H Respiratory Rate 17 16 Blood Pressure Pulse Oximetry Oxygen Delivery Oxygen Flow Rate Fraction of Inspired Oxygen 05/14/24 22:00 05/14/24 22:30 05/15/24 00:00 Temperature 97.5 F L Pulse Rate 106 H 103 H Respiratory Rate 16 Blood Pressure 120/91 H Pulse Oximetry 100 100 100 Oxygen Delivery Mechanical Ventilation Mechanical Ventilation Oxygen Flow Rate Fraction of Inspired Oxygen 100 90 05/15/24 00:00 05/15/24 00:00 05/15/24 00:00 Temperature 97.1 F L Pulse Rate 110 H 110 H Respiratory Rate 16 Blood Pressure 119/85 Pulse Oximetry 100 Oxygen Delivery Oxygen Flow Rate Fraction of Inspired Oxygen 90 05/15/24 00:04 05/15/24 01:02 05/15/24 02:00 Temperature Pulse Rate 113 H 115 H 107 H Respiratory Rate 16 Blood Pressure Pulse Oximetry 100 Oxygen Delivery Mechanical Ventilation Oxygen Flow Rate Fraction of Inspired Oxygen 100 05/15/24 02:00 05/15/24 02:00 05/15/24 04:00 Temperature 97.0 F L Pulse Rate 107 H 107 H Respiratory Rate 16 16 Blood Pressure 117/76 Pulse Oximetry 100 100 Oxygen Delivery Mechanical Ventilation Oxygen Flow Rate Fraction of Inspired Oxygen 70 05/15/24 04:00 05/15/24 04:00 05/15/24 04:00 Temperature 97.0 F L Pulse Rate 111 H 111 H Respiratory Rate 16 Blood Pressure 109/69 Pulse Oximetry 100 Oxygen Delivery Oxygen Flow Rate Fraction of Inspired Oxygen 70 05/15/24 04:08 05/15/24 04:08 05/15/24 04:55 Temperature Pulse Rate 104 H 104 H 106 H Respiratory Rate 16 16 Blood Pressure Pulse Oximetry 100 Oxygen Delivery Mechanical Ventilation Oxygen Flow Rate Fraction of Inspired Oxygen 100 05/15/24 06:00 05/15/24 06:00 05/15/24 06:14 Temperature 96.8 F L Pulse Rate 109 H 109 H 104 H Respiratory Rate 16 16 Blood Pressure 123/89 Pulse Oximetry 99 Oxygen Delivery Oxygen Flow Rate Fraction of Inspired Oxygen 05/15/24 08:00 05/15/24 08:00 05/15/24 08:00 Temperature 96.8 F L Pulse Rate 111 H 111 H Respiratory Rate 16 16 Blood Pressure 118/86 Pulse Oximetry 99 Oxygen Delivery Oxygen Flow Rate Fraction of Inspired Oxygen 55 05/15/24 08:00 05/15/24 08:35 05/15/24 08:45 Temperature Pulse Rate 108 H Respiratory Rate Blood Pressure Pulse Oximetry 100 99 Oxygen Delivery Mechanical Ventilation Mechanical Ventilation Mechanical Ventilation Oxygen Flow Rate Fraction of Inspired Oxygen 55 55 55 05/15/24 09:20 05/15/24 09:20 Temperature Pulse Rate 119 H 119 H Respiratory Rate 16 16 Blood Pressure Pulse Oximetry Oxygen Delivery Oxygen Flow Rate Fraction of Inspired Oxygen Exam 2 Narrative: Exam Narrative: Well developed well-nourished Male lying in the ICU bed on a ventilator sedated but in no acute distress Skin is warm and dry without rash. Has multiple bruises especially on his knees from prior falls. Head normocephalic atraumatic Eyes normal sclerae and conjunctivae Mouth normal lips teeth and gums But he is orally intubated so exam is limited. Neck no nodes no thyromegaly no carotid bruits Axillae no nodes Lungs symmetric and Bilateral mildly coarse upper airway sounds to auscultation and normal to percussion Heart irregularly irregular rhythm and elevated pulse without rub or gallop Abdomen bowel sounds positive soft nontender, no HSM, masses, or bruits. Extremities no cyanosis, clubbing, or edema Pulses 2+ equal in radial arteries Psychological not anxious or depressed Neuro sedated motor tone is normal cranial nerves 2-12 intact passively, reflexes 2+ and equal in the biceps and patellar tendons cerebellar no tremor, clonus or seizure Results Lab Results 05/15/24 06:11 05/15/24 06:11 Lab results: Most recent lab results ABG pH 7.454 (7.350-7.450) H 05/15/24 05:39 ABG pCO2 36.7 mmHg (35.0-45.0) 05/15/24 05:39 ABG pO2 146.2 mmHg (80.0-100.0) H 05/15/24 05:39 ABG HCO3 25.2 mEq/l (22.0-26.0) 05/15/24 05:39 ABG O2 Saturation 99.0 % (95.0-100.0) 05/15/24 05:39 Calcium 7.4 mg/dL (8.4-10.2) L 05/15/24 06:11 Phosphorus 2.5 mg/dL (2.5-4.5) 05/15/24 06:11 Magnesium 1.8 mg/dL (1.6-2.3) 05/15/24 06:11
--- NOTE | 2024-05-15 09:51 | P.PNIM_ITS ---
Progress Note: A&P Assessment and Plan (1) Sepsis: Qualifiers: Sepsis acute organ dysfunction status: with acute organ dysfunction Sepsis type: sepsis due to unspecified organism Severe sepsis acute organ dysfunction type: encephalopathy Severe sepsis shock status: without septic shock Qualified Code(s): A41.9 - Sepsis, unspecified organism; R65.20 - Severe sepsis without septic shock; G93.41 - Metabolic encephalopathy Code(s): A41.9 - Sepsis, unspecified organism Status: Acute Assessment and Plan: Patient presented with shortness of breath, generalized weakness, acute altered mental status -tachycardia, elevated WBC count -chest CTA likely pneumonia, possible cellulitis of the right knee -continue cefepime, doxycycline, vancomycin (05/14) -blood pressures have remained stable not requiring pressors -05/14: Blood cultures have been obtained and pending -05/15: Sputum cultures obtained and pending - not requiring any pressors at this time -check venous Doppler (2) Acute respiratory failure: Code(s): J96.00 - Acute respiratory failure, unspecified whether with hypoxia or hypercapnia Status: Acute Assessment and Plan: Acute respiratory failure could be multifactorial, inflammation RVR, seizures, chronic encephalomalacia, -05/14: intubated in the ER -Todd currently on CMV mode of ventilation, peep of 5, 70% FiO2. -chest x-ray and ABGs reviewed, ventilator adjusted -will add bronchodilators -sedated with propofol, maintain RASS of 0 to -2, daily SBT and SAT 05/14/2024 CTA chest: IMPRESSION: 1. No evident pulmonary embolism. Sensitivity decreased in the segmental pulmonary arteries and nondiagnostic in many of the smaller subsegmental pulmonary arteries particularly in the lung bases due to combination of suboptimal contrast opacification, respiratory motion and streak artifact. 2. Small to moderate-sized bilateral pleural effusions with dependent compressive atelectasis. Difficult to exclude superimposed pneumonia although suspicion is low. 3. Cardiomegaly. 4. 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 2. Small lateral and third ventricles, which is a change from the prior exam. Shunt catheter unchanged in position. (4) Pneumonia: Qualifiers: Laterality: bilateral Lung location: lower lobe of lung Pneumonia type: due to unspecified organism Qualified Code(s): J18.9 - Pneumonia, unspecified organism Code(s): J18.9 - Pneumonia, unspecified organism Status: Acute Assessment and Plan: Continue antibiotics as above Sputum cultures have been obtained (5) Hyponatremia: Code(s): E87.1 - Hypo-osmolality and hyponatremia Status: Acute Assessment and Plan: Hyponatremia, multifactorial, could be related to pneumonia, SIADH, history of TBI, patient does have a history of hyponatremia in 2018, 2019, 2022 -currently on normal saline at 100 mL/hour -appropriate rise in sodium, 119 on admission 04/17/2021 this morning -nephrology has been consulted (6) Atrial fibrillation with rapid ventricular response: Code(s): I48.91 - Unspecified atrial fibrillation Status: Acute (7) Acute brachiocephalic vein thrombosis: Code(s): I82.290 - Acute embolism and thrombosis of other thoracic veins Status: Acute Assessment and Plan: Patient's face was cyanotic, CTA chest showed complete occlusion of distal left brachiocephalic vein, -hospitalist discussed with Vascular surgery at [facility] ([facility]), Dr. Laird, the surgeon reviewed images, recommended heparin gtt only. No interventions indicated at this time. -patient on heparin infusion -monitor coags Subjective Date/time seen: 05/15/24 09:51 Interval history: Moose Miranda is a 48 year old male with past medical history of traumatic br ain injury, brain aneurysm status post surgery when he was 12 years of age, osteoporosis, seizures, ulcerative colitis, essential hypertension, presented the ED on 05/14/2024 with complains of shortness of breath and generalized weakness which has been ongoing for approximately 1 week. He did report shortness of breath worsens with exertion and lower extremity swelling along with generalized weakness and fatigue. Patient has a [employer] shunt secondary to a traumatic brain injury and a brain aneurysm when he was 12 years old. In the ER initially patient was alert and oriented x4. Shortly after CT scan he became agitated, with increasing shortness of breath, pulling on lines and hallucinating. ER physician intubated the patient. Patient had a difficult airway which took 3 attempts after which he was successfully intubated. Labs on admission: WBC 18.5, hemoglobin 14.2, platelets 242, sodium of 120, potassium 5.4, creatinine 0.80, total bilirubin 2.4, AST 220, ALT 92, proBNP 5130. TSH is 4.3, UA was unremarkable. MRSA was negative, influenza, RSV and SARS-CoV-[address] brain: Chronic encephalomalacia in the cerebellum and right parietal lobe. 2. Small lateral and third ventricles, which is a change from the prior exam. Shunt catheter unchanged in position. CTA chest, abdomen and pelvis: 1. No evident pulmonary embolism. Sensitivity decreased in the segmental pulmonary arteries and nondiagnostic in many of the smaller subsegmental pulmonary arteries particularly in the lung bases due to combination of suboptimal contrast opacification, respiratory motion and streak artifact. 2. Small to moderate-sized bilateral pleural effusions with dependent compressive atelectasis. Difficult to exclude superimposed pneumonia although suspicion is low. 3. Cardiomegaly. 4. 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 Started on maintenance IV fluids with normal saline at 100 mL/hour. Patient also went to AFib RVR with heart rates in the 30s to 140s. Initially started him on diltiazem drip, after which the patient became bradycardic and the drip was stopped. Patient was transferred to the ICU for further management. I discussed this with a family member who reported the patient is disabled due to a brain aneurysm repair and part of his cerebellum taken out in the process. He lives with his grandmother. His gait has always been an issue, but they report he is adamant in most issues and tries not to use a cane or walker. 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 Pupils equal reactive, sclera is clear, ETT in place Neck:? Tracheostomy scar noted Respiratory:? Coarse breath sounds bilateral bases, adequate air entry, no wheezing Cardiac:? Irregularly irregular, tachycardic Abdomen:? Soft, nontender, nondistended, normoactive bowel sounds Extremities:? Palpable pedal pulses, left knee more boggy with surgical scar. Right knee erythematous, warm Neuro:? Intubated sedated, Patient opens his eyes to name and follows simple commands Skin:? Erythematous skin on right knee, no other skin lesions noted Psych:? Unable to assess Const: General: comfortable and no acute distress Other: , male, ill appearing HENMT: Face/Nose/Sinus: Normal nares present Mouth: Yes dry mucous membranes Other: ETT in place Eyes: General: appearance normal, both eyes and all related structures Sclera: sclerae normal Pupils: Equal, round and reactive pupils present Other: pupils pinpoint. Resp: Effort & Inspection: normal respiratory effort Other: faint bibasilar crackles, no wheezing. tolerated vent well. Cardio: Rate: tachycardic Rhythm: abnormal rhythm Other: no murmur. GI: Other: abdomen soft, nondistended. Normoactive BS in all quadrants. Urinary Catheter: Urinary Catheter: patent and draining Skin: Other: ecchymosis in various stages of healing and erythema to bilateral knees, erythema worse compared to initial exam that took place post-intubation. no drainage. no other macular/erythematous patches. Neuro: Cranial nerves: Yes Equal, round and reactive pupils present Other: moving all extremities. reacts to pain. intubated/sedated. Extrem: Other: faintly palpable DP pulses bilaterally, R stronger than L. 2+ pitting edema to BLE, symmetric. Psych: Other: unable to assess Objective Data Vital Signs Vital Signs: Vital Signs - 24 hr 05/14/24 09:56 05/14/24 10:02 05/14/24 10:29 Temperature 98.1 F Pulse Rate 126 H 133 H Respiratory Rate 38 H 38 H Blood Pressure 153/98 H Pulse Oximetry 100 99 100 Oxygen Delivery Nasal Cannula Nasal Cannula Oxygen Flow Rate 2 2 Fraction of Inspired Oxygen 05/14/24 10:30 05/14/24 10:45 05/14/24 10:55 Temperature Pulse Rate 124 H 134 H 136 H Respiratory Rate 37 H 34 H Blood Pressure 152/119 H Pulse Oximetry 100 Oxygen Delivery Oxygen Flow Rate Fraction of Inspired Oxygen 05/14/24 10:57 05/14/24 11:27 05/14/24 11:30 Temperature Pulse Rate 131 H 97 87 Respiratory Rate 25 H 44 H 28 H Blood Pressure 152/119 H Pulse Oximetry 100 Oxygen Delivery Oxygen Flow Rate Fraction of Inspired Oxygen 05/14/24 11:31 05/14/24 11:56 05/14/24 12:20 Temperature Pulse Rate 99 100 100 Respiratory Rate 28 H 23 H 30 H Blood Pressure 134/108 H 137/113 H Pulse Oximetry 100 Oxygen Delivery Oxygen Flow Rate Fraction of Inspired Oxygen 05/14/24 12:42 05/14/24 13:00 05/14/24 13:01 Temperature Pulse Rate 108 H 93 101 H Respiratory Rate 26 H 27 H 29 H Blood Pressure 169/135 H Pulse Oximetry Oxygen Delivery Oxygen Flow Rate Fraction of Inspired Oxygen 05/14/24 13:15 05/14/24 13:30 05/14/24 13:31 Temperature Pulse Rate 121 H 121 H 106 H Respiratory Rate 37 H 25 H 29 H Blood Pressure 163/117 H Pulse Oximetry Oxygen Delivery Oxygen Flow Rate Fraction of Inspired Oxygen 05/14/24 13:41 05/14/24 13:45 05/14/24 13:55 Temperature Pulse Rate 112 H 140 H 130 H Respiratory Rate 18 28 H 22 H Blood Pressure 163/117 H 158/119 H Pulse Oximetry 97 Oxygen Delivery Oxygen Flow Rate Fraction of Inspired Oxygen 05/14/24 14:00 05/14/24 14:30 05/14/24 14:32 Temperature Pulse Rate 142 H 97 Respiratory Rate 29 H Blood Pressure 176/121 H 184/134 H Pulse Oximetry Oxygen Delivery Oxygen Flow Rate Fraction of Inspired Oxygen 05/14/24 14:33 05/14/24 14:44 05/14/24 14:45 Temperature Pulse Rate 97 112 H 117 H Respiratory Rate 12 24 H 25 H Blood Pressure 139/76 Pulse Oximetry 80 L 84 L Oxygen Delivery Oxygen Flow Rate Fraction of Inspired Oxygen 05/14/24 14:46 05/14/24 15:05 05/14/24 15:05 Temperature Pulse Rate 104 H 105 H 102 H Respiratory Rate 25 H 21 H Blood Pressure 154/102 H Pulse Oximetry 91 99 Oxygen Delivery Mechanical Ventilation Oxygen Flow Rate Fraction of Inspired Oxygen 100 05/14/24 15:13 05/14/24 15:16 05/14/24 15:31 Temperature Pulse Rate 103 H 99 98 Respiratory Rate 19 25 H 21 H Blood Pressure 130/85 Pulse Oximetry 99 Oxygen Delivery Oxygen Flow Rate Fraction of Inspired Oxygen 05/14/24 15:49 05/14/24 15:50 05/14/24 16:14 Temperature Pulse Rate 107 H 105 H 111 H Respiratory Rate 17 21 H Blood Pressure Pulse Oximetry 94 98 99 Oxygen Delivery Mechanical Ventilation Oxygen Flow Rate Fraction of Inspired Oxygen 100 05/14/24 16:15 05/14/24 17:19 05/14/24 18:05 Temperature Pulse Rate 106 H 111 H 111 H Respiratory Rate 27 H 17 17 Blood Pressure 126/84 Pulse Oximetry 99 Oxygen Delivery Oxygen Flow Rate Fraction of Inspired Oxygen 05/14/24 18:10 05/14/24 19:50 05/14/24 20:00 Temperature Pulse Rate 108 H 117 H Respiratory Rate Blood Pressure Pulse Oximetry 98 99 100 Oxygen Delivery Mechanical Ventilation Mechanical Ventilation Mechanical Ventilation Oxygen Flow Rate Fraction of Inspired Oxygen 100 100 100 05/14/24 20:00 05/14/24 20:00 05/14/24 20:00 Temperature 98.0 F Pulse Rate 114 H 114 H Respiratory Rate 16 Blood Pressure 113/71 Pulse Oximetry 100 Oxygen Delivery Oxygen Flow Rate Fraction of Inspired Oxygen 100 05/14/24 21:02 05/14/24 22:00 05/14/24 22:00 Temperature Pulse Rate 100 106 H 106 H Respiratory Rate 17 16 Blood Pressure Pulse Oximetry Oxygen Delivery Oxygen Flow Rate Fraction of Inspired Oxygen 05/14/24 22:00 05/14/24 22:30 05/15/24 00:00 Temperature 97.5 F L Pulse Rate 106 H 103 H Respiratory Rate 16 Blood Pressure 120/91 H Pulse Oximetry 100 100 100 Oxygen Delivery Mechanical Ventilation Mechanical Ventilation Oxygen Flow Rate Fraction of Inspired Oxygen 100 90 05/15/24 00:00 05/15/24 00:00 05/15/24 00:00 Temperature 97.1 F L Pulse Rate 110 H 110 H Respiratory Rate 16 Blood Pressure 119/85 Pulse Oximetry 100 Oxygen Delivery Oxygen Flow Rate Fraction of Inspired Oxygen 90 05/15/24 00:04 05/15/24 01:02 05/15/24 02:00 Temperature Pulse Rate 113 H 115 H 107 H Respiratory Rate 16 Blood Pressure Pulse Oximetry 100 Oxygen Delivery Mechanical Ventilation Oxygen Flow Rate Fraction of Inspired Oxygen 100 05/15/24 02:00 05/15/24 02:00 05/15/24 04:00 Temperature 97.0 F L Pulse Rate 107 H 107 H Respiratory Rate 16 16 Blood Pressure 117/76 Pulse Oximetry 100 100 Oxygen Delivery Mechanical Ventilation Oxygen Flow Rate Fraction of Inspired Oxygen 70 05/15/24 04:00 05/15/24 04:00 05/15/24 04:00 Temperature 97.0 F L Pulse Rate 111 H 111 H Respiratory Rate 16 Blood Pressure 109/69 Pulse Oximetry 100 Oxygen Delivery Oxygen Flow Rate Fraction of Inspired Oxygen 70 05/15/24 04:08 05/15/24 04:08 05/15/24 04:55 Temperature Pulse Rate 104 H 104 H 106 H Respiratory Rate 16 16 Blood Pressure Pulse Oximetry 100 Oxygen Delivery Mechanical Ventilation Oxygen Flow Rate Fraction of Inspired Oxygen 100 05/15/24 06:00 05/15/24 06:00 05/15/24 06:14 Temperature 96.8 F L Pulse Rate 109 H 109 H 104 H Respiratory Rate 16 16 Blood Pressure 123/89 Pulse Oximetry 99 Oxygen Delivery Oxygen Flow Rate Fraction of Inspired Oxygen 05/15/24 08:00 05/15/24 08:00 05/15/24 08:00 Temperature 96.8 F L Pulse Rate 111 H 111 H Respiratory Rate 16 16 Blood Pressure 118/86 Pulse Oximetry 99 Oxygen Delivery Oxygen Flow Rate Fraction of Inspired Oxygen 55 05/15/24 08:00 05/15/24 08:35 05/15/24 08:45 Temperature Pulse Rate 108 H Respiratory Rate Blood Pressure Pulse Oximetry 100 99 Oxygen Delivery Mechanical Ventilation Mechanical Ventilation Mechanical Ventilation Oxygen Flow Rate Fraction of Inspired Oxygen 55 55 55 05/15/24 09:20 05/15/24 09:20 Temperature Pulse Rate 119 H 119 H Respiratory Rate 16 16 Blood Pressure Pulse Oximetry Oxygen Delivery Oxygen Flow Rate Fraction of Inspired Oxygen Intake/Output Intake/Output: Intake & Output 05/12/24 05/13/24 05/14/24 05/15/24 23:59 23:59 23:59 23:59 Intake Total 1238.3 1029.3 Output Total 875 Balance 1238.3 154.3 Meds/Results Medications: Active Medications Generic Name Dose Route Start Last Admin Trade Name Freq PRN Reason Stop Dose Admin Acetaminophen 650 mg 05/14/24 18:25 Acetaminophen Elixir 325 Mg/10.15 Ml Udc PO Q6H PRN Mild Pain (1-3) or Fever Heparin Sodium (Porcine) 6,500 units 05/14/24 17:17 Heparin Sodium 5,000 Units/Ml Vial IV PUSH PRN PRN aPTT less than 55 seconds Heparin Sodium (Porcine) 3,500 units 05/14/24 17:17 Heparin Sodium 5,000 Units/Ml Vial IV PUSH PRN PRN aPTT 55 - 70 seconds Sodium Chloride 1,000 mls @ 100 mls/hr 05/14/24 15:05 05/15/24 05:55 Normal Saline Iv IV CONT 05/15/24 15:00 100 mls/hr .Q10H DAKSHA Administration Heparin Sodium/Dextrose 25,000 units in 250 mls @ 13 mls/hr 05/14/24 17:20 05/15/24 08:07 Heparin Sodium/D5w 100 Units/Ml IV CONT 1,300 units/hr .[id number] DAKSHA 13 mls/hr Titration Protocol 1,300 UNITS/HR Doxycycline Hyclate 100 mg in 100 mls @ 100 mls/hr 05/14/24 19:00 05/15/24 08:11 Vibramycin 100 Mg/Ns 100 Ml IVPB 100 mls/hr Q12H DAKSHA Administration Propofol 100 mls @ 13.575 mls/hr 05/14/24 21:00 05/15/24 09:20 Diprivan IV CONT 25 mcg/kg/min .[id number] DAKSHA 13.58 mls/hr Administration Protocol 25 MCG/KG/MIN Cefepime HCl 2 gm in 50 mls @ 100 mls/hr 05/15/24 06:00 05/15/24 05:54 Maxipime 2 Gm/Ns 50 Ml IVPB 100 mls/hr Q8HR DAKSHA Administration Vancomycin HCl 1,500 mg in 500 mls @ 250 mls/hr 05/15/24 10:00 05/15/24 09:20 Vancomycin 1,500 Mg/Ns 500 Ml IVPB 250 mls/hr Q12H DAKSHA Administration Potassium Chloride 100 mls @ 25 mls/hr 05/15/24 08:02 05/15/24 08:41 Kcl 40 Meq/Water 100 Ml IVPB 05/15/24 12:01 25 mls/hr ONCE ONE Administration Ipratropium Flushing 0.5 mg 05/15/24 14:00 Ipratropium Br 0.02% Inh Soln 0.5 Mg/2.5 Ml Vial INHALATION Q6HRT DAKSHA Levalbuterol HCl 0.63 mg 05/15/24 14:00 Levalbuterol Neb 1.25 Mg/3 Ml INHALATION Q6HRT DAKSHA Metoprolol Tartrate 2.5 mg 05/14/24 19:49 Metoprolol Tartrate Inj 5 Mg/5 Ml Vial IV PUSH Q3H PRN persistent tachycardia, >120 Metoprolol Tartrate 50 mg 05/15/24 21:00 Metoprolol Tartrate 50 Mg Tab PO Q12HR DAKSHA Multi-Ingred Cream/Lotion/Oil/Oint 1 applic 05/14/24 21:00 05/15/24 08:11 Mineral Oil/White Petrolatum Ointment EACH EYE 1 applic Q12HR DAKSHA Administration Pantoprazole Sodium 40 mg 05/15/24 09:00 05/15/24 08:11 Pantoprazole Sodium Iv 40 Mg Vial IV PUSH 40 mg QAM DAKSHA Administration Perflutren Lipid Microsphere 0 ml 05/14/24 13:21 Perflutren Lipid Microspheres 1.5 Ml Vial Diluted To 10 Ml Total Volume IV PUSH 05/17/24 13:21 ONCE PRN adequate visualization Protocol Sodium Chloride 10 ml 05/14/24 22:00 05/15/24 05:55 Central Line Flush IV PUSH 10 ml Q8HR DAKSHA Administration Sodium Chloride 20 ml 05/14/24 19:36 Central Line Flush IV PUSH PRN PRN after blood draws Radiology Results: ITS Impressions Abdomen/Pelvis CT 05/14/24 13:28 IMPRESSION: 1. Pulmonary edema. 2. Small pleural effusions. 3. Small volume of ascites. Head CT 05/14/24 15:43 IMPRESSION: 1. 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 2. Small lateral and third ventricles, which is a change from the prior exam. Shunt catheter unchanged in position. Chest CTA 05/14/24 15:49 IMPRESSION: 1. No evident pulmonary embolism. Sensitivity decreased in the segmental pulmonary arteries and nondiagnostic in many of the smaller subsegmental pulmonary arteries particularly in the lung bases due to combination of suboptimal contrast opacification, respiratory motion and streak artifact. 2. Small to moderate-sized bilateral pleural effusions with dependent compressive atelectasis. Difficult to exclude superimposed pneumonia although suspicion is low. 3. Cardiomegaly. 4. 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 Retrocardiac consolidation in the left lower lung zone which could represent atelectasis or pneumonia. Small right and small to moderate-sized left pleural effusions. 3. Cardiomegaly. Labs Labs: Laboratory Results - last 24 hr 05/14/24 05/14/24 05/14/24 10:49 11:37 11:38 WBC 18.5 H RBC 4.31 L Hgb 14.2 Hct 40.5 L MCV 94.0 MCH 32.9 MCHC 35.1 RDW 13.4 Plt Count 242 MPV 11.7 H Immature Gran % (Auto) 0.5 Neut % (Auto) 77.6 H Lymph % (Auto) 9.7 L Pierce % (Auto) 12.0 H Eos % (Auto) 0.0 Baso % (Auto) 0.2 Lymph # (Auto) 1.80 Pierce # (Auto) 2.2 H Eos # (Auto) 0.0 Baso # (Auto) 0.0 Abs Immat Gran (auto) 0.10 H Absolute Neuts (auto) 14.4 H Absolute Nucleated RBC 0.030 H Nucleated RBC % 0.2 APTT Puncture Site ABG pH ABG pCO2 ABG pO2 ABG PO2/FiO2 Ratio ABG HCO3 ABG O2 Saturation ABG O2 Content ABG Base Excess A-a Gradient Oxyhemoglobin Total Hemoglobin O2 Delivery Device O2 Liters/Min Minute Volume Vent Rate Vent Mode FiO2 Tidal Volume PEEP Peak Inspir Pressure Pressure Support Sodium 120 L Potassium 5.4 H Chloride 81 L Carbon Dioxide 27 Anion Gap 12 BUN 23 H D Creatinine 0.80 Estim Creat Clear Calc Not Reportable Estimated GFR > 60 Glucose 78 Calcium 8.9 Phosphorus Magnesium Total Bilirubin 2.4 H AST 220 H ALT 92 H Alkaline Phosphatase 74 NT-Pro-B Natriuret Pep 5130 H Total Protein 7.0 Albumin 4.5 Triglycerides Procalcitonin TSH 4.390 Urine Color Urine Appearance Urine pH Ur Specific [place] Urine Protein Urine Glucose (UA) Urine Ketones Ur Blood (Man) Urine Nitrate Urine Bilirubin Urine Urobilinogen Leukocyte Esterase Rfl Urine RBC Urine WBC Ur Squamous Epith Cells Urine Bacteria Urine Casts Nasal MRSA (PCR) Influenza A (RT-PCR) Negative Influenza B (RT-PCR) Negative RSV (RT-PCR) Negative SARS-CoV-2 RNA (RT-PCR) Negative 05/14/24 05/14/24 05/14/24 16:23 16:47 18:29 WBC RBC Hgb Hct MCV MCH MCHC RDW Plt Count MPV Immature Gran % (Auto) Neut % (Auto) Lymph % (Auto) Pierce % (Auto) Eos % (Auto) Baso % (Auto) Lymph # (Auto) Pierce # (Auto) Eos # (Auto) Baso # (Auto) Abs Immat Gran (auto) Absolute Neuts (auto) Absolute Nucleated RBC Nucleated RBC % APTT Puncture Site Left brachial ABG pH 7.422 ABG pCO2 40.9 ABG pO2 40.8 L* ABG PO2/FiO2 Ratio 0.41 ABG HCO3 26.1 H ABG O2 Saturation 77.2 L* ABG O2 Content 12.5 L ABG Base Excess 1.5 A-a Gradient 631.3 Oxyhemoglobin 68.4 L* Total Hemoglobin 13.0 O2 Delivery Device Ventilator O2 Liters/Min 0.0 Minute Volume Not Reportable Vent Rate 16 Vent Mode Cmv FiO2 100 Tidal Volume 500 PEEP 5 Peak Inspir Pressure Not Reportable Pressure Support 0 Sodium Potassium Chloride Carbon Dioxide Anion Gap BUN Creatinine Estim Creat Clear Calc Estimated GFR Glucose Calcium Phosphorus Magnesium Total Bilirubin AST ALT Alkaline Phosphatase NT-Pro-B Natriuret Pep Total Protein Albumin Triglycerides Procalcitonin TSH Urine Color Yellow Urine Appearance Clear Urine pH 7.0 Ur Specific [place] 1.031 Urine Protein Negative Urine Glucose (UA) Negative Urine Ketones Trace H Ur Blood (Man) 2+ H Urine Nitrate Negative Urine Bilirubin Negative Urine Urobilinogen 0.2 Leukocyte Esterase Rfl Negative Urine RBC 0-2 Urine WBC 0-5 Ur Squamous Epith Cells None seen Urine Bacteria None seen Urine Casts 0-2 Nasal MRSA (PCR) Not detected Influenza A (RT-PCR) Influenza B (RT-PCR) RSV (RT-PCR) SARS-CoV-2 RNA (RT-PCR) 05/14/24 05/15/24 05/15/24 18:52 00:18 05:39 WBC RBC Hgb Hct MCV MCH MCHC RDW Plt Count MPV Immature Gran % (Auto) Neut % (Auto) Lymph % (Auto) Pierce % (Auto) Eos % (Auto) Baso % (Auto) Lymph # (Auto) Pierce # (Auto) Eos # (Auto) Baso # (Auto) Abs Immat Gran (auto) Absolute Neuts (auto) Absolute Nucleated RBC Nucleated RBC % APTT 104.5 H Puncture Site Right radial ABG pH 7.454 H ABG pCO2 36.7 ABG pO2 146.2 H ABG PO2/FiO2 Ratio 2.09 ABG HCO3 25.2 ABG O2 Saturation 99.0 ABG O2 Content 18.7 ABG Base Excess 1.5 A-a Gradient 313.5 Oxyhemoglobin 98.4 Total Hemoglobin 13.3 O2 Delivery Device Ventilator O2 Liters/Min Not Reportable Minute Volume Not Reportable Vent Rate 16 Vent Mode Cmv FiO2 70 Tidal Volume 500 PEEP 5 Peak Inspir Pressure Not Reportable Pressure Support Not Reportable Sodium 119 L* 121 L Potassium 3.8 3.3 L Chloride 82 L 85 L Carbon Dioxide 27 26 Anion Gap 10 10 BUN 23 H 21 H Creatinine 0.81 0.68 L Estim Creat Clear Calc 114 115 Estimated GFR > 60 > 60 Glucose 68 78 Calcium 8.1 L 7.6 L Phosphorus Magnesium 1.7 Total Bilirubin AST ALT Alkaline Phosphatase NT-Pro-B Natriuret Pep Total Protein Albumin Triglycerides 110 Procalcitonin 0.3 TSH Urine Color Urine Appearance Urine pH Ur Specific [place] Urine Protein Urine Glucose (UA) Urine Ketones Ur Blood (Man) Urine Nitrate Urine Bilirubin Urine Urobilinogen Leukocyte Esterase Rfl Urine RBC Urine WBC Ur Squamous Epith Cells Urine Bacteria Urine Casts Nasal MRSA (PCR) Influenza A (RT-PCR) Influenza B (RT-PCR) RSV (RT-PCR) SARS-CoV-2 RNA (RT-PCR) 05/15/24 06:11 WBC 17.1 H RBC 3.80 L Hgb 12.5 L Hct 36.0 L MCV 94.7 MCH 32.9 MCHC 34.7 RDW 13.5 Plt Count 183 MPV 11.4 H Immature Gran % (Auto) 0.6 H Neut % (Auto) 77.3 H Lymph % (Auto) 7.9 L Pierce % (Auto) 13.7 H Eos % (Auto) 0.2 Baso % (Auto) 0.3 Lymph # (Auto) 1.35 Pierce # (Auto) 2.3 H Eos # (Auto) 0.0 Baso # (Auto) 0.1 Abs Immat Gran (auto) 0.11 H Absolute Neuts (auto) 13.2 H Absolute Nucleated RBC 0.000 Nucleated RBC % 0.0 APTT > 200.0 H* Puncture Site ABG pH ABG pCO2 ABG pO2 ABG PO2/FiO2 Ratio ABG HCO3 ABG O2 Saturation ABG O2 Content ABG Base Excess A-a Gradient Oxyhemoglobin Total Hemoglobin O2 Delivery Device O2 Liters/Min Minute Volume Vent Rate Vent Mode FiO2 Tidal Volume PEEP Peak Inspir Pressure Pressure Support Sodium 122 L Potassium 3.5 Chloride 88 L Carbon Dioxide 27 Anion Gap 7 BUN 19 Creatinine 0.62 L Estim Creat Clear Calc 126 Estimated GFR > 60 Glucose 81 Calcium 7.4 L Phosphorus 2.5 Magnesium 1.8 Total Bilirubin 1.4 H AST 147 H ALT 81 H Alkaline Phosphatase 64 NT-Pro-B Natriuret Pep Total Protein 6.0 L Albumin 3.1 L Triglycerides 94 Procalcitonin TSH Urine Color Urine Appearance Urine pH Ur Specific [place] Urine Protein Urine Glucose (UA) Urine Ketones Ur Blood (Man) Urine Nitrate Urine Bilirubin Urine Urobilinogen Leukocyte Esterase Rfl Urine RBC Urine WBC Ur Squamous Epith Cells Urine Bacteria Urine Casts Nasal MRSA (PCR) Influenza A (RT-PCR) Influenza B (RT-PCR) RSV (RT-PCR) SARS-CoV-2 RNA (RT-PCR) Hospitalist MIPS Advance Care Plan I have confirmed that the patient's Advanced Care Plan is present, code status is documented, or surrogate decision maker is listed in patient medical record.: Yes Medication Reconciliation I have utilized all available resources to obtain, update and review the patients current medications (includes all prescriptions, OTC, herbals, cannabis, and nutritional supplements).: Yes
[2024-05-15 11:15] LABS: Ammonia < 9 umol/L (9-30)
[2024-05-15 11:22] LABS: Lactic Acid Reflex 0.7 mmol/L (0.7-2.0)
[2024-05-15 11:36] LABS: Potassium Urine Random 25.9 meq/L
[2024-05-15 11:39] LABS: Sodium Urine Random 5 meq/L
[2024-05-15] MEDS: HEPARIN SOD/D5W 100 UNITS/ML 25,000 UNITS/250 ML BAG 13 UNITS IV CONT (13:36)
[2024-05-15 13:42] LABS: Sodium 124 mmol/L (137-145)
[2024-05-15] MEDS: DEXTROSE 50% 25 GM/50 ML SYRINGE IV PUSH (13:55)
[2024-05-15] MEDS: IPRATROPIUM BR 0.02% INH SOLN 0.5 MG/2.5 ML VIAL INHALATION ×2 (14:02→20:08)
[2024-05-15] MEDS: LEVALBUTEROL NEB 1.25 MG/3 ML 0.63 MG INHALATION ×2 (14:02→20:08)
[2024-05-15 14:26] LABS: Glucose Point of Care 67 mg/dl (65-105)
[2024-05-15 14:26] LABS: Glucose Point of Care 66 mg/dl (65-105)
[2024-05-15 14:43] LABS: Partial Thromboplastin Time > 200.0 Seconds (22.3-36.8)
[2024-05-15 14:56] LABS: Glucose Point of Care 109 mg/dl (65-105)
[2024-05-15 18:13] LABS: Glucose Point of Care 89 mg/dl (65-105)
[2024-05-15] MEDS: METOPROLOL TARTRATE 50 MG TAB PO (21:20)
[2024-05-15 21:26] LABS: Sodium 123 mmol/L (137-145)
[2024-05-15 21:35] LABS: Partial Thromboplastin Time 137.1 Seconds (22.3-36.8)
[2024-05-15] MEDS: PROPOFOL IV EMULSION 100 ML 16.29 MG IV CONT (21:39)
[2024-05-16] VITALS (38 sets, daily range): BP systolic 117–137; BP diastolic 81–104; PULSE 95–150; RESP 8–18; TEMP 36.6–37.2; O2SAT 95–100
[2024-05-16 00:45] LABS: Glucose Point of Care 103 mg/dl (65-105)
[2024-05-16] MEDS: IPRATROPIUM BR 0.02% INH SOLN 0.5 MG/2.5 ML VIAL INHALATION ×4 (03:00→20:57)
[2024-05-16] MEDS: LEVALBUTEROL NEB 1.25 MG/3 ML 0.63 MG INHALATION ×4 (03:00→20:57)
[2024-05-16] MEDS: PROPOFOL IV EMULSION 100 ML 16.29 MG IV CONT ×2 (03:45→22:42)
[2024-05-16] MEDS: CEFEPIME 2 GM/NS 50 ML 2 GM/50 ML BAG IVPB ×3 (05:38→20:55)
[2024-05-16 05:47] LABS: Alveolar/Arterial O2 Gradient 142.5 mmHg; Base Excess ABG 0.4 mEq/l (+/-2.0); Fractional Inspired Oxygen 40 %; HCO3 ABG 24.7 mEq/l (22.0-26.0); Oxygen Content ABG 18.4 %vol (16.0-22.0); Oxygen Saturation ABG 97.6 % (95.0-100.0); Oxyhemoglobin 96.4 % THb (90.0-100.0); PCO2 ABG 38.7 mmHg (35.0-45.0); PO2 ABG 98.2 mmHg (80.0-100.0); PO2 FiO2 Ratio Arterial Blood 2.45 %; Total Hemoglobin 13.5 g/dL (12.0-18.0); pH ABG 7.422 (7.350-7.450)
[2024-05-16 05:48] LABS: Basophils Absolute Auto 0.1 K/mm3 (0.0-0.1); Basophils Percent Auto 0.4 % (0.2-1.2); Eosinophils Absolute Auto 0.2 K/mm3 (0-0.3); Eosinophils Percent Auto 1.3 % (0-4.4); Hematocrit 36.5 % (42.0-52.0); Hemoglobin 12.7 g/dL (14.0-18.0); Immature Granulocyte Percent A 0.9 % (0-0.5); Lymphocytes Absolute Auto 1.18 K/mm3 (0.9-3.2); Lymphocytes Percent Auto 10.1 % (18.3-44.2); Mean Corpuscular HGB Conc 34.8 g/dl (32-36); Mean Corpuscular Hemoglobin 33.4 pg (26-34); Mean Corpuscular Volume 96.1 fl (80-100); Mean Platelet Volume 11.4 fl (7.4-10.4); Monocytes Absolute Auto 1.7 K/mm3 (0.1-0.6); Monocytes Percent Auto 14.6 % (2.6-8.5); Neutrophils Absolute Auto 8.5 K/mm3 (1.3-6.7); Neutrophils Percent Auto 72.7 % (45.5-73.1); Platelet Count Result 182 k/mm3 (150-375); White Blood Count 11.7 K/mm3 (4.5-10.0)
[2024-05-16 05:48] LABS: Device VENTILATOR; Modified Allen's Test Pass; Site Drawn RIGHT RADIAL
[2024-05-16 05:49] LABS: Arterial Blood Gas PEEP 5 cmH2O; Arterial Blood Gas Vent Mode CMV; Arterial Blood Gas Ventilator rate 16 /MIN
[2024-05-16 05:50] LABS: Arterial Blood Gas Tidal Volume 450 ml
[2024-05-16 06:02] LABS: Partial Thromboplastin Time 135.1 Seconds (22.3-36.8)
[2024-05-16 06:04] LABS: Alanine Aminotransferase 65 U/L (6-50); Albumin Level 2.9 g/dL (3.5-5.1); Alkaline Phosphatase 67 U/L (38-126); Anion Gap 4 mmol/L (4-12); Aspartate Amino Transferase 79 U/L (17-59); Bilirubin,Total 0.8 mg/dL (0.2-1.3); Blood Urea Nitrogen 12 mg/dL (9-20); Calcium 7.4 mg/dL (8.4-10.2); Carbon Dioxide 27 mmol/L (22-30); Chloride 96 mmol/L (98-107); Estimated CRCL calculation 133 ml/min; Estimated Glomerular Filt Rate > 60; Glucose 90 mg/dL (65-110); Phosphorus 2.4 mg/dL (2.5-4.5); Potassium 3.6 mmol/L (3.4-5.0); Sodium 127 mmol/L (137-145)
[2024-05-16] MEDS: DOXYCYCLINE 100 MG/NS 100 ML 100 MG/100 ML BAG IVPB ×2 (06:12→18:11)
[2024-05-16] MEDS: CENTRAL LINE FLUSH 10 ML IV PUSH ×3 (06:13→20:55)
[2024-05-16 07:19] LABS: Protein, Total 4.7 g/dL (6.1-8.1)
[2024-05-16] MEDS: PANTOPRAZOLE SODIUM IV 40 MG VIAL IV PUSH (08:16)
[2024-05-16] MEDS: METOPROLOL TARTRATE 50 MG TAB PO (08:16)
[2024-05-16] MEDS: MINERAL OIL/WHITE PETROLATUM OINTMENT 1 APPLIC EACH EYE ×2 (08:17→20:55)
[2024-05-16] MEDS: KCL 40 MEQ/WATER 100 ML 100 ML 25 ML IVPB (08:23)
[2024-05-16] MEDS: POTASSIUM/PHOSPHORUS/SODIUM 1.5 GM PACKET 1 PACKET PO (08:23)
[2024-05-16] MEDS: FUROSEMIDE INJ 40 MG/4 ML VIAL IV PUSH (08:23)
--- NOTE | 2024-05-16 10:51 | P.PNNP_ITS ---
Progress Note: A&P Assessment and Plan (1) Hyponatremia: Code(s): E87.1 - Hypo-osmolality and hyponatremia Status: Acute Assessment and Plan: the patient has chronic hyponatremia. This is been going on for at least 8 years But no longer than 13 years. 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 The patient has an exacerbation of the hyponatremia most likely related to his sepsis, pneumonia, and possibly prerenal factors. Urine 'lytes prerenal. TSH and cortisol okay sodium level has improved to 127 today on his own continue to observe. (2) Acute respiratory failure: Code(s): J96.00 - Acute respiratory failure, unspecified whether with hypoxia or hypercapnia Status: Acute Assessment and Plan: the patient is getting antibiotics, pulmonary toilet, and he is intubated. evaluating for extubation as oxygenation has improved (3) Atrial fibrillation with rapid ventricular response: Code(s): I48.91 - Unspecified atrial fibrillation Status: Acute Assessment and Plan: The heart rate has come down some. He was on diltiazem but the heart rate went too low. Now he is just on metoprolol. (4) Hypertension: Qualifiers: Hypertension type: unspecified Qualified Code(s): I10 - Essential (primary) hypertension Code(s): I10 - Essential (primary) hypertension Status: Chronic Assessment and Plan: Blood pressure doing well with bp 110 to 140. on metoprolol alone. lisinopril held for now. fold the latter back in if bp rises more. Subjective Date/time seen: 05/16/24 10:51 Interval history: pt is more awake. sedatives held. evaluating possible extubation. Review of Systems Cardiovascular: Cardiovascular: Reports no additional cardiovascular complaints Respiratory: Respiratory: Reports no additional respiratory complaints Gastrointestinal: Gastrointestinal: Reports no additional gastrointestinal complaints Genitourinary: Genitourinary: Reports no additional male genitourinary complaints Exam Narrative: WDWN in NAD skin no rash head ncat lungs coarse bilaterally from vent/upper airway noise cor irreg irreg no rub abd BS+ nontender and soft ext trace to 1+ bilateral edema. Objective Data Vital Signs Vital Signs: Vital Signs - 24 hr 05/15/24 12:00 05/15/24 12:00 05/15/24 12:00 Temperature 96.9 F L Pulse Rate 104 H 104 H Respiratory Rate 16 16 Blood Pressure 103/62 Pulse Oximetry 96 Oxygen Delivery Fraction of Inspired Oxygen 45 05/15/24 12:00 05/15/24 12:00 05/15/24 14:00 Temperature 96.9 F L Pulse Rate 97 115 H Respiratory Rate 16 Blood Pressure 105/75 Pulse Oximetry 97 97 Oxygen Delivery Mechanical Ventilation Fraction of Inspired Oxygen 45 05/15/24 14:00 05/15/24 14:00 05/15/24 14:05 Temperature Pulse Rate 105 H 103 H 102 H Respiratory Rate 16 16 Blood Pressure Pulse Oximetry Oxygen Delivery Fraction of Inspired Oxygen 05/15/24 14:09 05/15/24 14:18 05/15/24 14:33 Temperature Pulse Rate 108 H 106 H 108 H Respiratory Rate 16 16 Blood Pressure Pulse Oximetry 97 Oxygen Delivery Mechanical Ventilation Fraction of Inspired Oxygen 45 05/15/24 14:33 05/15/24 16:00 05/15/24 16:00 Temperature 97.4 F L Pulse Rate 108 H 102 H 113 H Respiratory Rate 16 16 18 Blood Pressure 109/81 Pulse Oximetry 97 Oxygen Delivery Fraction of Inspired Oxygen 05/15/24 16:00 05/15/24 16:00 05/15/24 16:00 Temperature Pulse Rate 103 H Respiratory Rate Blood Pressure Pulse Oximetry 98 Oxygen Delivery Mechanical Ventilation Fraction of Inspired Oxygen 45 45 05/15/24 17:05 05/15/24 18:00 05/15/24 18:00 Temperature 97.5 F L Pulse Rate 114 H 99 104 H Respiratory Rate 18 16 Blood Pressure 113/86 Pulse Oximetry 97 98 Oxygen Delivery Mechanical Ventilation Fraction of Inspired Oxygen 45 05/15/24 18:00 05/15/24 19:52 05/15/24 20:00 Temperature Pulse Rate 112 H 108 H 108 H Respiratory Rate 18 Blood Pressure Pulse Oximetry Oxygen Delivery Fraction of Inspired Oxygen 05/15/24 20:00 05/15/24 20:00 05/15/24 20:08 Temperature 97.8 F Pulse Rate 109 H 110 H Respiratory Rate 17 Blood Pressure 112/83 Pulse Oximetry 97 97 Oxygen Delivery Mechanical Ventilation Fraction of Inspired Oxygen 45 45 05/15/24 20:08 05/15/24 20:16 05/15/24 21:00 Temperature Pulse Rate 112 H 106 H 107 H Respiratory Rate 17 17 16 Blood Pressure Pulse Oximetry 97 Oxygen Delivery Mechanical Ventilation Fraction of Inspired Oxygen 45 05/15/24 21:20 05/15/24 21:39 05/15/24 21:39 Temperature Pulse Rate 107 H 102 H 102 H Respiratory Rate 16 16 Blood Pressure Pulse Oximetry Oxygen Delivery Fraction of Inspired Oxygen 05/15/24 22:00 05/15/24 22:00 05/15/24 22:00 Temperature 97.9 F Pulse Rate 107 H 111 H 106 H Respiratory Rate 16 16 Blood Pressure 107/76 Pulse Oximetry 96 Oxygen Delivery Fraction of Inspired Oxygen 05/15/24 23:20 05/15/24 23:45 05/16/24 00:00 Temperature Pulse Rate 108 H 107 H 105 H Respiratory Rate 16 16 Blood Pressure Pulse Oximetry 97 97 Oxygen Delivery Mechanical Ventilation Mechanical Ventilation Fraction of Inspired Oxygen 45 45 05/16/24 00:00 05/16/24 00:00 05/16/24 00:00 Temperature 97.8 F Pulse Rate 111 H 105 H Respiratory Rate 16 Blood Pressure 117/85 Pulse Oximetry 97 Oxygen Delivery Fraction of Inspired Oxygen 45 05/16/24 02:00 05/16/24 02:00 05/16/24 02:00 Temperature 98.0 F Pulse Rate 107 H 107 H 107 H Respiratory Rate 16 16 Blood Pressure 119/84 Pulse Oximetry 97 Oxygen Delivery Fraction of Inspired Oxygen 05/16/24 02:00 05/16/24 03:00 05/16/24 03:15 Temperature Pulse Rate 111 H 115 H Respiratory Rate 17 17 Blood Pressure Pulse Oximetry Oxygen Delivery Fraction of Inspired Oxygen 40 05/16/24 03:17 05/16/24 03:45 05/16/24 03:45 Temperature Pulse Rate 107 H 107 H 107 H Respiratory Rate 16 16 Blood Pressure Pulse Oximetry 97 Oxygen Delivery Mechanical Ventilation Fraction of Inspired Oxygen 40 05/16/24 04:00 05/16/24 04:00 05/16/24 04:00 Temperature 98.2 F Pulse Rate 103 H 103 H Respiratory Rate 16 16 Blood Pressure 117/81 Pulse Oximetry 96 96 Oxygen Delivery Mechanical Ventilation Fraction of Inspired Oxygen 40 40 05/16/24 04:00 05/16/24 04:00 05/16/24 05:32 Temperature Pulse Rate 99 103 H 105 H Respiratory Rate 16 Blood Pressure Pulse Oximetry 97 Oxygen Delivery Mechanical Ventilation Fraction of Inspired Oxygen 40 05/16/24 06:00 05/16/24 06:00 05/16/24 06:00 Temperature 98.0 F Pulse Rate 99 99 99 Respiratory Rate 16 16 Blood Pressure 120/83 Pulse Oximetry 97 Oxygen Delivery Fraction of Inspired Oxygen 05/16/24 07:00 05/16/24 07:58 05/16/24 07:58 Temperature Pulse Rate 104 H 109 H 98 Respiratory Rate 16 16 Blood Pressure Pulse Oximetry 98 Oxygen Delivery Mechanical Ventilation Fraction of Inspired Oxygen 40 05/16/24 08:00 05/16/24 08:00 05/16/24 08:00 Temperature 98.1 F Pulse Rate 103 H 103 H Respiratory Rate 16 16 Blood Pressure 121/84 Pulse Oximetry 97 Oxygen Delivery Fraction of Inspired Oxygen 40 05/16/24 08:00 05/16/24 08:00 05/16/24 08:16 Temperature Pulse Rate 105 H 104 H Respiratory Rate Blood Pressure Pulse Oximetry 97 Oxygen Delivery Mechanical Ventilation Fraction of Inspired Oxygen 40 05/16/24 08:19 05/16/24 08:40 05/16/24 08:41 Temperature Pulse Rate 95 108 H Respiratory Rate 16 16 Blood Pressure Pulse Oximetry Oxygen Delivery Fraction of Inspired Oxygen 40 05/16/24 10:00 05/16/24 10:00 05/16/24 10:00 Temperature 99 F Pulse Rate 103 H 104 H 104 H Respiratory Rate 14 14 Blood Pressure 124/90 Pulse Oximetry 96 Oxygen Delivery Fraction of Inspired Oxygen 05/16/24 10:31 05/16/24 10:31 05/16/24 10:33 Temperature Pulse Rate 99 Respiratory Rate 8 L Blood Pressure Pulse Oximetry 95 Oxygen Delivery Mechanical Ventilation Fraction of Inspired Oxygen 40 40 05/16/24 10:35 Temperature Pulse Rate Respiratory Rate Blood Pressure Pulse Oximetry Oxygen Delivery Fraction of Inspired Oxygen 40 Intake/Output Intake/Output: Intake & Output 05/13/24 05/14/24 05/15/24 05/16/24 23:59 23:59 23:59 23:59 Intake Total 1238.3 3361.3 1619.6 Output Total 1425 900 Balance 1238.3 1936.3 719.6 Meds/Results Medications: Active Medications Generic Name Dose Route Start Last Admin Trade Name Freq PRN Reason Stop Dose Admin Acetaminophen 650 mg 05/14/24 18:25 Acetaminophen Elixir 325 Mg/10.15 Ml Udc PO Q6H PRN Mild Pain (1-3) or Fever Dextrose 12.5 gm 05/15/24 19:27 Dextrose 50% 25 Gm/50 Ml Syringe IV PUSH PRN PRN Hypoglycemia Protocol Glucagon 1 mg 05/15/24 19:27 Glucagon For Inj 1 Mg Vial IM PRN PRN Hypoglycemia Protocol Glucose 15 gm 05/15/24 19:27 Glucose Oral Gel 15 Gm Of Glucse In 37.5 Gm Tube PO PRN PRN Hypoglycemia Protocol Heparin Sodium (Porcine) 6,500 units 05/14/24 17:17 Heparin Sodium 5,000 Units/Ml Vial IV PUSH PRN PRN aPTT less than 55 seconds Heparin Sodium (Porcine) 3,500 units 05/14/24 17:17 Heparin Sodium 5,000 Units/Ml Vial IV PUSH PRN PRN aPTT 55 - 70 seconds Heparin Sodium/Dextrose 25,000 units in 250 mls @ 7 mls/hr 05/14/24 17:20 05/16/24 07:30 Heparin Sodium/D5w 100 Units/Ml IV CONT 700 units/hr .Q24H DAKSHA 7 mls/hr Titration Protocol 700 UNITS/HR Doxycycline Hyclate 100 mg in 100 mls @ 100 mls/hr 05/14/24 19:00 05/16/24 06:12 Vibramycin 100 Mg/Ns 100 Ml IVPB 100 mls/hr Q12H DAKSHA Administration Propofol 100 mls @ 0 mls/hr 05/14/24 21:00 05/16/24 10:00 Diprivan IV CONT 0 mcg/kg/min .Q0M DAKSHA 0 mls/hr Titration Protocol 0 MCG/KG/MIN Cefepime HCl 2 gm in 50 mls @ 100 mls/hr 05/15/24 06:00 05/16/24 06:14 Maxipime 2 Gm/Ns 50 Ml IVPB Infused Q8HR DAKSHA Infusion Dextrose 1,000 mls @ 100 mls/hr 05/15/24 19:27 Dextrose 5% 1,000 Ml IVPB PRN PRN Hypoglycemia Protocol Potassium Chloride 100 mls @ 25 mls/hr 05/16/24 08:07 05/16/24 08:23 Kcl 40 Meq/Water 100 Ml IVPB 05/16/24 12:06 25 mls/hr ONCE ONE Administration Ipratropium [place] 0.5 mg 05/15/24 14:00 05/16/24 07:58 Ipratropium Br 0.02% Inh Soln 0.5 Mg/2.5 Ml Vial INHALATION 0.5 mg Q6HRT DAKSHA Administration Levalbuterol HCl 0.63 mg 05/15/24 14:00 05/16/24 07:58 Levalbuterol Neb 1.25 Mg/3 Ml INHALATION 0.63 mg Q6HRT DAKSHA Administration Metoprolol Tartrate 2.5 mg 05/14/24 19:49 Metoprolol Tartrate Inj 5 Mg/5 Ml Vial IV PUSH Q3H PRN persistent tachycardia, >120 Metoprolol Tartrate 50 mg 05/15/24 21:00 05/16/24 08:16 Metoprolol Tartrate 50 Mg Tab PO 50 mg Q12HR DAKSHA Administration Multi-Ingred Cream/Lotion/Oil/Oint 1 applic 05/14/24 21:00 05/16/24 08:17 Mineral Oil/White Petrolatum Ointment EACH EYE 1 applic Q12HR DAKSHA Administration Pantoprazole Sodium 40 mg 05/15/24 09:00 05/16/24 08:16 Pantoprazole Sodium Iv 40 Mg Vial IV PUSH 40 mg QAM DAKSHA Administration Perflutren Lipid Microsphere 0 ml 05/14/24 13:21 Perflutren Lipid Microspheres 1.5 Ml Vial Diluted To 10 Ml Total Volume IV PUSH 05/17/24 13:21 ONCE PRN adequate visualization Protocol Sodium Chloride 10 ml 05/14/24 22:00 05/16/24 06:13 Central Line Flush IV PUSH 10 ml Q8HR DAKSHA Administration Sodium Chloride 20 ml 05/14/24 19:36 Central Line Flush IV PUSH PRN PRN after blood draws Radiology Results: ITS Impressions Abdomen/Pelvis CT 05/14/24 13:28 IMPRESSION: 1. Pulmonary edema. 2. Small pleural effusions. 3. Small volume of ascites. Head CT 05/14/24 15:43 IMPRESSION: 1. 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 2. Small lateral and third ventricles, which is a change from the prior exam. Shunt catheter unchanged in position. Chest CTA 05/14/24 15:49 IMPRESSION: 1. No evident pulmonary embolism. Sensitivity decreased in the segmental pulmonary arteries and nondiagnostic in many of the smaller subsegmental pulmonary arteries particularly in the lung bases due to combination of suboptimal contrast opacification, respiratory motion and streak artifact. 2. Small to moderate-sized bilateral pleural effusions with dependent compressive atelectasis. Difficult to exclude superimposed pneumonia although suspicion is low. 3. Cardiomegaly. 4. 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 Nasogastric tube in stomach. 2. Cardiomegaly. 3. Retrocardiac opacity left lower lung zone which could represent persistent small pleural effusion, atelectasis or pneumonia. Venous Doppler Study 05/15/24 12:29 IMPRESSION: 1. No deep venous thrombosis in either lower limb. Chest X-Ray 05/16/24 06:32 Impression: Mild pulmonary edema pattern with small left pleural effusion and left lower lobe atelectasis. Support tubes, as above. Labs Labs: Laboratory Results - last 24 hr 05/15/24 05/15/24 05/15/24 10:52 13:22 13:53 WBC RBC Hgb Hct MCV MCH MCHC RDW Plt Count MPV Immature Gran % (Auto) Neut % (Auto) Lymph % (Auto) [place] % (Auto) Eos % (Auto) Baso % (Auto) Lymph # (Auto) [place] # (Auto) Eos # (Auto) Baso # (Auto) Abs Immat Gran (auto) Absolute Neuts (auto) Absolute Nucleated RBC Nucleated RBC % APTT > 200.0 H* Puncture Site ABG pH ABG pCO2 ABG pO2 ABG PO2/FiO2 Ratio ABG HCO3 ABG O2 Saturation ABG O2 Content ABG Base Excess A-a Gradient Oxyhemoglobin Total Hemoglobin O2 Delivery Device O2 Liters/Min Minute Volume Vent Rate Vent Mode FiO2 Tidal Volume PEEP Peak Inspir Pressure Pressure Support Sodium 124 L Potassium Chloride Carbon Dioxide Anion Gap BUN Creatinine Estim Creat Clear Calc Estimated GFR Glucose POC Capillary Glucose 67 Lactic Acid 0.7 Calcium Phosphorus Magnesium Total Bilirubin AST ALT Alkaline Phosphatase Ammonia < 9 L Total Protein 4.7 L Albumin TSH (Reflex) 2.030 Random Cortisol 24.00 Ur Random Sodium 5 Ur Random Potassium 25.9 05/15/24 05/15/24 05/15/24 13:54 14:36 17:34 WBC RBC Hgb Hct MCV MCH MCHC RDW Plt Count MPV Immature Gran % (Auto) Neut % (Auto) Lymph % (Auto) [place] % (Auto) Eos % (Auto) Baso % (Auto) Lymph # (Auto) [place] # (Auto) Eos # (Auto) Baso # (Auto) Abs Immat Gran (auto) Absolute Neuts (auto) Absolute Nucleated RBC Nucleated RBC % APTT Puncture Site ABG pH ABG pCO2 ABG pO2 ABG PO2/FiO2 Ratio ABG HCO3 ABG O2 Saturation ABG O2 Content ABG Base Excess A-a Gradient Oxyhemoglobin Total Hemoglobin O2 Delivery Device O2 Liters/Min Minute Volume Vent Rate Vent Mode FiO2 Tidal Volume PEEP Peak Inspir Pressure Pressure Support Sodium Potassium Chloride Carbon Dioxide Anion Gap BUN Creatinine Estim Creat Clear Calc Estimated GFR Glucose POC Capillary Glucose 66 109 H 89 Lactic Acid Calcium Phosphorus Magnesium Total Bilirubin AST ALT Alkaline Phosphatase Ammonia Total Protein Albumin TSH (Reflex) Random Cortisol Ur Random Sodium Ur Random Potassium 05/15/24 05/16/24 05/16/24 21:07 00:42 05:28 WBC 11.7 H RBC 3.80 L Hgb 12.7 L Hct 36.5 L MCV 96.1 MCH 33.4 MCHC 34.8 RDW 14.0 Plt Count 182 MPV 11.4 H Immature Gran % (Auto) 0.9 H Neut % (Auto) 72.7 Lymph % (Auto) 10.1 L [place] % (Auto) 14.6 H Eos % (Auto) 1.3 Baso % (Auto) 0.4 Lymph # (Auto) 1.18 [place] # (Auto) 1.7 H Eos # (Auto) 0.2 Baso # (Auto) 0.1 Abs Immat Gran (auto) 0.10 H Absolute Neuts (auto) 8.5 H Absolute Nucleated RBC 0.000 Nucleated RBC % 0.0 APTT 137.1 H 135.1 H Puncture Site ABG pH ABG pCO2 ABG pO2 ABG PO2/FiO2 Ratio ABG HCO3 ABG O2 Saturation ABG O2 Content ABG Base Excess A-a Gradient Oxyhemoglobin Total Hemoglobin O2 Delivery Device O2 Liters/Min Minute Volume Vent Rate Vent Mode FiO2 Tidal Volume PEEP Peak Inspir Pressure Pressure Support Sodium 123 L 127 L Potassium 3.6 Chloride 96 L Carbon Dioxide 27 Anion Gap 4 BUN 12 D Creatinine 0.58 L Estim Creat Clear Calc 133 Estimated GFR > 60 Glucose 90 POC Capillary Glucose 103 Lactic Acid Calcium 7.4 L Phosphorus 2.4 L Magnesium 2.0 Total Bilirubin 0.8 AST 79 H ALT 65 H Alkaline Phosphatase 67 Ammonia Total Protein 5.0 L Albumin 2.9 L TSH (Reflex) Random Cortisol Ur Random Sodium Ur Random Potassium 05/16/24 05:39 WBC RBC Hgb Hct MCV MCH MCHC RDW Plt Count MPV Immature Gran % (Auto) Neut % (Auto) Lymph % (Auto) [place] % (Auto) Eos % (Auto) Baso % (Auto) Lymph # (Auto) [place] # (Auto) Eos # (Auto) Baso # (Auto) Abs Immat Gran (auto) Absolute Neuts (auto) Absolute Nucleated RBC Nucleated RBC % APTT Puncture Site Right radial ABG pH 7.422 ABG pCO2 38.7 ABG pO2 98.2 ABG PO2/FiO2 Ratio 2.45 ABG HCO3 24.7 ABG O2 Saturation 97.6 ABG O2 Content 18.4 ABG Base Excess 0.4 A-a Gradient 142.5 Oxyhemoglobin 96.4 Total Hemoglobin 13.5 O2 Delivery Device Ventilator O2 Liters/Min Not Reportable Minute Volume Not Reportable Vent Rate 16 Vent Mode Cmv FiO2 40 Tidal Volume 450 PEEP 5 Peak Inspir Pressure Not Reportable Pressure Support Not Reportable Sodium Potassium Chloride Carbon Dioxide Anion Gap BUN Creatinine Estim Creat Clear Calc Estimated GFR Glucose POC Capillary Glucose Lactic Acid Calcium Phosphorus Magnesium Total Bilirubin AST ALT Alkaline Phosphatase Ammonia Total Protein Albumin TSH (Reflex) Random Cortisol Ur Random Sodium Ur Random Potassium
--- NOTE | 2024-05-16 11:12 | WPDINTPN ---
Progress Note: A&P Assessment and Plan (1) Sepsis: Qualifiers: Sepsis acute organ dysfunction status: with acute organ dysfunction Sepsis type: sepsis due to unspecified organism Severe sepsis acute organ dysfunction type: encephalopathy Severe sepsis shock status: without septic shock Qualified Code(s): A41.9 - Sepsis, unspecified organism; R65.20 - Severe sepsis without septic shock; G93.41 - Metabolic encephalopathy Code(s): A41.9 - Sepsis, unspecified organism Status: Acute Assessment and Plan: Patient presented with shortness of breath, generalized weakness, acute altered mental status -tachycardia, elevated WBC count -chest CTA likely pneumonia, possible cellulitis of the right knee -continue cefepime, doxycycline, vancomycin (05/14) -MRSA screen negative, will discontinue vancomycin (05/16) -blood pressures have remained stable, patient not requiring pressors -05/14: Blood cultures: Primary cultures are negative -05/15: Sputum cultures obtained and pending -05/15: Bilateral lower extremity venous Dopplers were negative for DVT bilaterally (2) Acute respiratory failure: Code(s): J96.00 - Acute respiratory failure, unspecified whether with hypoxia or hypercapnia Status: Acute Assessment and Plan: Acute respiratory failure could be multifactorial, inflammation RVR, seizures, chronic encephalomalacia, -05/14: intubated in the ER -Todd currently on CMV mode of ventilation, peep of 5, 70% FiO2. -chest x-ray and ABGs reviewed, ventilator adjusted -will add bronchodilators -sedated with propofol, maintain RASS of 0 to -2, daily SBT and SAT -will discontinue propofol, place patient on SBT, was still somnolent, decreased respiratory rate, patient going into apnea ventilation. Placed him on ASV mode of ventilation. Patient also given Lasix 40 mg IV x1 05/14/2024 CTA chest: IMPRESSION: 1. No evident pulmonary embolism. Sensitivity decreased in the segmental pulmonary arteries and nondiagnostic in many of the smaller subsegmental pulmonary arteries particularly in the lung bases due to combination of suboptimal contrast opacification, respiratory motion and streak artifact. 2. Small to moderate-sized bilateral pleural effusions with dependent compressive atelectasis. Difficult to exclude superimposed pneumonia although suspicion is low. 3. Cardiomegaly. 4. 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 2. Small lateral and third ventricles, which is a change from the prior exam. Shunt catheter unchanged in position. (4) Pneumonia: Qualifiers: Laterality: bilateral Lung location: lower lobe of lung Pneumonia type: due to unspecified organism Qualified Code(s): J18.9 - Pneumonia, unspecified organism Code(s): J18.9 - Pneumonia, unspecified organism Status: Acute Assessment and Plan: Continue antibiotics as above Sputum cultures have been obtained (5) Hyponatremia: Code(s): E87.1 - Hypo-osmolality and hyponatremia Status: Acute Assessment and Plan: Hyponatremia, multifactorial, could be related to pneumonia, SIADH, history of TBI, patient does have a history of hyponatremia in 2018, 2019, 2022 -currently on normal saline at 100 mL/hour -appropriate rise in sodium, 119 on admission. Sodium 127 this morning -nephrology following (6) Atrial fibrillation with rapid ventricular response: Code(s): I48.91 - Unspecified atrial fibrillation Status: Acute Assessment and Plan: Continue metoprolol and heparin infusion -will have Cardiology evaluate in the a.m. for atrial fibrillation as well as his moderate to severe mitral valve regurg, cardiomyopathy 05/15/2024 echocardiogram Summary 1. Complete two-dimensional, color flow and Doppler transthoracic echocardiogram is performed. 2. Left ventricular chamber dimension is mildly enlarged. 3. Left ventricular systolic function is moderately reduced, estimated at 35-40%. 4. There is mildly increased left ventricular wall thickness. 5. The left ventricular diastolic function is abnormal. 6. Left atrial chamber dimension is severely enlarged. 7. Right atrial chamber dimension is mildly enlarged. 8. There is moderate to severe mitral valve regurgitation. 9. There is mild tricuspid valve regurgitation. 10. Severe pulmonary hypertension, estimated pulmonary arterial systolic pressure is 72 mmHg. 11. There is mild pulmonic regurgitation. 12. Pleural effusion seen. (7) Acute brachiocephalic vein thrombosis: Code(s): I82.290 - Acute embolism and thrombosis of other thoracic veins Status: Acute Assessment and Plan: Patient's face was cyanotic, CTA chest showed complete occlusion of distal left brachiocephalic vein, -hospitalist discussed with Vascular surgery at [facility] ([facility]), Dr. Laird, the surgeon reviewed images, recommended heparin gtt only. No interventions indicated at this time. -continue heparin infusion -monitor coags Plan DVT prophylaxis: Heparin infusion Stress ulcer prophylaxis: Protonix IV Nutrition: Tolerating tube Code Status: Full code Critical Care Time Spent: 32 minute Discussed with mother and sister and updated her with patient's condition and plan of care. I answered their questions Due to a high probability of clinically significant, life threatening deterioration, the patient required my highest level of preparedness to intervene emergently and I personally spent this critical care time directly and personally managing the patient. This critical care time included obtaining a history; examining the patient; pulse oximetry; ordering and review of studies; arranging urgent treatment with development of a management plan; evaluation of patient's response to treatment; frequent reassessment; and discussions with other providers. It was exclusive of separately billable procedures and treating other patients and teaching time. Please see Assessment and Plan section and the rest of the note for further information on patient assessment and treatment This dictation may have been done utilizing a voice recognition system. Attempts have been made to correct errors. However, there may be uncorrected grammatical, spelling, and recognitions errors present. Subjective Date/time seen: 05/16/24 11:12 Interval history: Reason for consult: Shortness of breath, generalized weakness, acute respiratory failure, atrial fibrillation RVR, pneumonia 05/16/2024: Patient seen and examined the ICU, remains intubated on CMV mode of ventilation, peep of 5, 40% FiO2. Sedated with propofol infusion, patient opens his eyes, follows simple commands, nods to questions. Urine output has been adequate, afebrile, hemodynamically stable, remains in AFib, rate controlled. Review of Systems Review of Systems: ROS unobtainable: Yes unobtainable due to endotracheal tube and unobtainable due to medical condition Exam Narrative: General: Patient is intubated sedated in no acute distress HEENT:? Pupils equal reactive, sclera is clear, ETT in place Neck:? Tracheostomy scar noted Respiratory:? Coarse breath sounds bilateral bases, adequate air entry, no wheezing Cardiac:? Irregularly irregular, rate controlled Abdomen:? Soft, nontender, nondistended, normoactive bowel sounds Extremities:? Palpable pedal pulses, left knee more boggy with surgical scar. Right knee erythematous, warm Neuro:? Intubated sedated, Patient opens his eyes to name and follows simple commands Skin:? Erythematous skin on right knee, no other skin lesions noted Psych:? Unable to assess Objective Data Vital Signs Vital Signs: Vital Signs - 24 hr 05/15/24 12:00 05/15/24 12:00 05/15/24 12:00 Temperature 96.9 F L Pulse Rate 104 H 104 H Respiratory Rate 16 16 Blood Pressure 103/62 Pulse Oximetry 96 Oxygen Delivery Fraction of Inspired Oxygen 45 05/15/24 12:00 05/15/24 12:00 05/15/24 14:00 Temperature 96.9 F L Pulse Rate 97 115 H Respiratory Rate 16 Blood Pressure 105/75 Pulse Oximetry 97 97 Oxygen Delivery Mechanical Ventilation Fraction of Inspired Oxygen 45 05/15/24 14:00 05/15/24 14:00 05/15/24 14:05 Temperature Pulse Rate 105 H 103 H 102 H Respiratory Rate 16 16 Blood Pressure Pulse Oximetry Oxygen Delivery Fraction of Inspired Oxygen 05/15/24 14:09 05/15/24 14:18 05/15/24 14:33 Temperature Pulse Rate 108 H 106 H 108 H Respiratory Rate 16 16 Blood Pressure Pulse Oximetry 97 Oxygen Delivery Mechanical Ventilation Fraction of Inspired Oxygen 45 05/15/24 14:33 05/15/24 16:00 05/15/24 16:00 Temperature 97.4 F L Pulse Rate 108 H 102 H 113 H Respiratory Rate 16 16 18 Blood Pressure 109/81 Pulse Oximetry 97 Oxygen Delivery Fraction of Inspired Oxygen 05/15/24 16:00 05/15/24 16:00 05/15/24 16:00 Temperature Pulse Rate 103 H Respiratory Rate Blood Pressure Pulse Oximetry 98 Oxygen Delivery Mechanical Ventilation Fraction of Inspired Oxygen 45 45 05/15/24 17:05 05/15/24 18:00 05/15/24 18:00 Temperature 97.5 F L Pulse Rate 114 H 99 104 H Respiratory Rate 18 16 Blood Pressure 113/86 Pulse Oximetry 97 98 Oxygen Delivery Mechanical Ventilation Fraction of Inspired Oxygen 45 05/15/24 18:00 05/15/24 19:52 05/15/24 20:00 Temperature Pulse Rate 112 H 108 H 108 H Respiratory Rate 18 Blood Pressure Pulse Oximetry Oxygen Delivery Fraction of Inspired Oxygen 05/15/24 20:00 05/15/24 20:00 05/15/24 20:08 Temperature 97.8 F Pulse Rate 109 H 110 H Respiratory Rate 17 Blood Pressure 112/83 Pulse Oximetry 97 97 Oxygen Delivery Mechanical Ventilation Fraction of Inspired Oxygen 45 45 05/15/24 20:08 05/15/24 20:16 05/15/24 21:00 Temperature Pulse Rate 112 H 106 H 107 H Respiratory Rate 17 17 16 Blood Pressure Pulse Oximetry 97 Oxygen Delivery Mechanical Ventilation Fraction of Inspired Oxygen 45 05/15/24 21:20 05/15/24 21:39 05/15/24 21:39 Temperature Pulse Rate 107 H 102 H 102 H Respiratory Rate 16 16 Blood Pressure Pulse Oximetry Oxygen Delivery Fraction of Inspired Oxygen 05/15/24 22:00 05/15/24 22:00 05/15/24 22:00 Temperature 97.9 F Pulse Rate 107 H 111 H 106 H Respiratory Rate 16 16 Blood Pressure 107/76 Pulse Oximetry 96 Oxygen Delivery Fraction of Inspired Oxygen 05/15/24 23:20 05/15/24 23:45 05/16/24 00:00 Temperature Pulse Rate 108 H 107 H 105 H Respiratory Rate 16 16 Blood Pressure Pulse Oximetry 97 97 Oxygen Delivery Mechanical Ventilation Mechanical Ventilation Fraction of Inspired Oxygen 45 45 05/16/24 00:00 05/16/24 00:00 05/16/24 00:00 Temperature 97.8 F Pulse Rate 111 H 105 H Respiratory Rate 16 Blood Pressure 117/85 Pulse Oximetry 97 Oxygen Delivery Fraction of Inspired Oxygen 45 05/16/24 02:00 05/16/24 02:00 05/16/24 02:00 Temperature 98.0 F Pulse Rate 107 H 107 H 107 H Respiratory Rate 16 16 Blood Pressure 119/84 Pulse Oximetry 97 Oxygen Delivery Fraction of Inspired Oxygen 05/16/24 02:00 05/16/24 03:00 05/16/24 03:15 Temperature Pulse Rate 111 H 115 H Respiratory Rate 17 17 Blood Pressure Pulse Oximetry Oxygen Delivery Fraction of Inspired Oxygen 40 05/16/24 03:17 05/16/24 03:45 05/16/24 03:45 Temperature Pulse Rate 107 H 107 H 107 H Respiratory Rate 16 16 Blood Pressure Pulse Oximetry 97 Oxygen Delivery Mechanical Ventilation Fraction of Inspired Oxygen 40 05/16/24 04:00 05/16/24 04:00 05/16/24 04:00 Temperature 98.2 F Pulse Rate 103 H 103 H Respiratory Rate 16 16 Blood Pressure 117/81 Pulse Oximetry 96 96 Oxygen Delivery Mechanical Ventilation Fraction of Inspired Oxygen 40 40 05/16/24 04:00 05/16/24 04:00 05/16/24 05:32 Temperature Pulse Rate 99 103 H 105 H Respiratory Rate 16 Blood Pressure Pulse Oximetry 97 Oxygen Delivery Mechanical Ventilation Fraction of Inspired Oxygen 40 05/16/24 06:00 05/16/24 06:00 05/16/24 06:00 Temperature 98.0 F Pulse Rate 99 99 99 Respiratory Rate 16 16 Blood Pressure 120/83 Pulse Oximetry 97 Oxygen Delivery Fraction of Inspired Oxygen 05/16/24 07:00 05/16/24 07:58 05/16/24 07:58 Temperature Pulse Rate 104 H 109 H 98 Respiratory Rate 16 16 Blood Pressure Pulse Oximetry 98 Oxygen Delivery Mechanical Ventilation Fraction of Inspired Oxygen 40 05/16/24 08:00 05/16/24 08:00 05/16/24 08:00 Temperature 98.1 F Pulse Rate 103 H 103 H Respiratory Rate 16 16 Blood Pressure 121/84 Pulse Oximetry 97 Oxygen Delivery Fraction of Inspired Oxygen 40 05/16/24 08:00 05/16/24 08:00 05/16/24 08:16 Temperature Pulse Rate 105 H 104 H Respiratory Rate Blood Pressure Pulse Oximetry 97 Oxygen Delivery Mechanical Ventilation Fraction of Inspired Oxygen 40 05/16/24 08:19 05/16/24 08:40 05/16/24 08:41 Temperature Pulse Rate 95 108 H Respiratory Rate 16 16 Blood Pressure Pulse Oximetry Oxygen Delivery Fraction of Inspired Oxygen 40 05/16/24 10:00 05/16/24 10:00 05/16/24 10:00 Temperature 99 F Pulse Rate 103 H 104 H 104 H Respiratory Rate 14 14 Blood Pressure 124/90 Pulse Oximetry 96 Oxygen Delivery Fraction of Inspired Oxygen 05/16/24 10:31 05/16/24 10:31 05/16/24 10:33 Temperature Pulse Rate 99 Respiratory Rate 8 L Blood Pressure Pulse Oximetry 95 Oxygen Delivery Mechanical Ventilation Fraction of Inspired Oxygen 40 40 05/16/24 10:35 Temperature Pulse Rate Respiratory Rate Blood Pressure Pulse Oximetry Oxygen Delivery Fraction of Inspired Oxygen 40 Intake/Output Intake/Output: Intake & Output 05/13/24 05/14/24 05/15/24 05/16/24 23:59 23:59 23:59 23:59 Intake Total 1238.3 3361.3 1619.6 Output Total 1425 900 Balance 1238.3 1936.3 719.6 Meds/Results Medications: Active Medications Generic Name Dose Route Start Last Admin Trade Name Freq PRN Reason Stop Dose Admin Acetaminophen 650 mg 05/14/24 18:25 Acetaminophen Elixir 325 Mg/10.15 Ml Udc PO Q6H PRN Mild Pain (1-3) or Fever Dextrose 12.5 gm 05/15/24 19:27 Dextrose 50% 25 Gm/50 Ml Syringe IV PUSH PRN PRN Hypoglycemia Protocol Glucagon 1 mg 05/15/24 19:27 Glucagon For Inj 1 Mg Vial IM PRN PRN Hypoglycemia Protocol Glucose 15 gm 05/15/24 19:27 Glucose Oral Gel 15 Gm Of Glucse In 37.5 Gm Tube PO PRN PRN Hypoglycemia Protocol Heparin Sodium (Porcine) 6,500 units 05/14/24 17:17 Heparin Sodium 5,000 Units/Ml Vial IV PUSH PRN PRN aPTT less than 55 seconds Heparin Sodium (Porcine) 3,500 units 05/14/24 17:17 Heparin Sodium 5,000 Units/Ml Vial IV PUSH PRN PRN aPTT 55 - 70 seconds Heparin Sodium/Dextrose 25,000 units in 250 mls @ 7 mls/hr 05/14/24 17:20 05/16/24 07:30 Heparin Sodium/D5w 100 Units/Ml IV CONT 700 units/hr .Q24H DAKSHA 7 mls/hr Titration Protocol 700 UNITS/HR Doxycycline Hyclate 100 mg in 100 mls @ 100 mls/hr 05/14/24 19:00 05/16/24 06:12 Vibramycin 100 Mg/Ns 100 Ml IVPB 100 mls/hr Q12H DAKSHA Administration Propofol 100 mls @ 0 mls/hr 05/14/24 21:00 05/16/24 10:00 Diprivan IV CONT 0 mcg/kg/min .Q0M DAKSHA 0 mls/hr Titration Protocol 0 MCG/KG/MIN Cefepime HCl 2 gm in 50 mls @ 100 mls/hr 05/15/24 06:00 05/16/24 06:14 Maxipime 2 Gm/Ns 50 Ml IVPB Infused Q8HR DAKSHA Infusion Dextrose 1,000 mls @ 100 mls/hr 05/15/24 19:27 Dextrose 5% 1,000 Ml IVPB PRN PRN Hypoglycemia Protocol Potassium Chloride 100 mls @ 25 mls/hr 05/16/24 08:07 05/16/24 08:23 Kcl 40 Meq/Water 100 Ml IVPB 05/16/24 12:06 25 mls/hr ONCE ONE Administration Ipratropium [place] 0.5 mg 05/15/24 14:00 05/16/24 07:58 Ipratropium Br 0.02% Inh Soln 0.5 Mg/2.5 Ml Vial INHALATION 0.5 mg Q6HRT DAKSHA Administration Levalbuterol HCl 0.63 mg 05/15/24 14:00 05/16/24 07:58 Levalbuterol Neb 1.25 Mg/3 Ml INHALATION 0.63 mg Q6HRT DAKSHA Administration Metoprolol Tartrate 2.5 mg 05/14/24 19:49 Metoprolol Tartrate Inj 5 Mg/5 Ml Vial IV PUSH Q3H PRN persistent tachycardia, >120 Metoprolol Tartrate 50 mg 05/15/24 21:00 05/16/24 08:16 Metoprolol Tartrate 50 Mg Tab PO 50 mg Q12HR DAKSHA Administration Multi-Ingred Cream/Lotion/Oil/Oint 1 applic 05/14/24 21:00 05/16/24 08:17 Mineral Oil/White Petrolatum Ointment EACH EYE 1 applic Q12HR DAKSHA Administration Pantoprazole Sodium 40 mg 05/15/24 09:00 05/16/24 08:16 Pantoprazole Sodium Iv 40 Mg Vial IV PUSH 40 mg QAM DAKSHA Administration Perflutren Lipid Microsphere 0 ml 05/14/24 13:21 Perflutren Lipid Microspheres 1.5 Ml Vial Diluted To 10 Ml Total Volume IV PUSH 05/17/24 13:21 ONCE PRN adequate visualization Protocol Sodium Chloride 10 ml 05/14/24 22:00 05/16/24 06:13 Central Line Flush IV PUSH 10 ml Q8HR DAKSHA Administration Sodium Chloride 20 ml 05/14/24 19:36 Central Line Flush IV PUSH PRN PRN after blood draws Radiology Results: ITS Impressions Abdomen/Pelvis CT 05/14/24 13:28 IMPRESSION: 1. Pulmonary edema. 2. Small pleural effusions. 3. Small volume of ascites. Head CT 05/14/24 15:43 IMPRESSION: 1. 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 2. Small lateral and third ventricles, which is a change from the prior exam. Shunt catheter unchanged in position. Chest CTA 05/14/24 15:49 IMPRESSION: 1. No evident pulmonary embolism. Sensitivity decreased in the segmental pulmonary arteries and nondiagnostic in many of the smaller subsegmental pulmonary arteries particularly in the lung bases due to combination of suboptimal contrast opacification, respiratory motion and streak artifact. 2. Small to moderate-sized bilateral pleural effusions with dependent compressive atelectasis. Difficult to exclude superimposed pneumonia although suspicion is low. 3. Cardiomegaly. 4. 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 Nasogastric tube in stomach. 2. Cardiomegaly. 3. Retrocardiac opacity left lower lung zone which could represent persistent small pleural effusion, atelectasis or pneumonia. Venous Doppler Study 05/15/24 12:29 IMPRESSION: 1. No deep venous thrombosis in either lower limb. Chest X-Ray 05/16/24 06:32 Impression: Mild pulmonary edema pattern with small left pleural effusion and left lower lobe atelectasis. Support tubes, as above. Labs Labs: Laboratory Results - last 24 hr 05/15/24 05/15/24 05/15/24 10:52 13:22 13:53 WBC RBC Hgb Hct MCV MCH MCHC RDW Plt Count MPV Immature Gran % (Auto) Neut % (Auto) Lymph % (Auto) [place] % (Auto) Eos % (Auto) Baso % (Auto) Lymph # (Auto) [place] # (Auto) Eos # (Auto) Baso # (Auto) Abs Immat Gran (auto) Absolute Neuts (auto) Absolute Nucleated RBC Nucleated RBC % APTT > 200.0 H* Puncture Site ABG pH ABG pCO2 ABG pO2 ABG PO2/FiO2 Ratio ABG HCO3 ABG O2 Saturation ABG O2 Content ABG Base Excess A-a Gradient Oxyhemoglobin Total Hemoglobin O2 Delivery Device O2 Liters/Min Minute Volume Vent Rate Vent Mode FiO2 Tidal Volume PEEP Peak Inspir Pressure Pressure Support Sodium 124 L Potassium Chloride Carbon Dioxide Anion Gap BUN Creatinine Estim Creat Clear Calc Estimated GFR Glucose POC Capillary Glucose 67 Lactic Acid 0.7 Calcium Phosphorus Magnesium Total Bilirubin AST ALT Alkaline Phosphatase Ammonia < 9 L Total Protein 4.7 L Albumin TSH (Reflex) 2.030 Random Cortisol 24.00 Ur Random Sodium 5 Ur Random Potassium 25.9 05/15/24 05/15/24 05/15/24 13:54 14:36 17:34 WBC RBC Hgb Hct MCV MCH MCHC RDW Plt Count MPV Immature Gran % (Auto) Neut % (Auto) Lymph % (Auto) [place] % (Auto) Eos % (Auto) Baso % (Auto) Lymph # (Auto) [place] # (Auto) Eos # (Auto) Baso # (Auto) Abs Immat Gran (auto) Absolute Neuts (auto) Absolute Nucleated RBC Nucleated RBC % APTT Puncture Site ABG pH ABG pCO2 ABG pO2 ABG PO2/FiO2 Ratio ABG HCO3 ABG O2 Saturation ABG O2 Content ABG Base Excess A-a Gradient Oxyhemoglobin Total Hemoglobin O2 Delivery Device O2 Liters/Min Minute Volume Vent Rate Vent Mode FiO2 Tidal Volume PEEP Peak Inspir Pressure Pressure Support Sodium Potassium Chloride Carbon Dioxide Anion Gap BUN Creatinine Estim Creat Clear Calc Estimated GFR Glucose POC Capillary Glucose 66 109 H 89 Lactic Acid Calcium Phosphorus Magnesium Total Bilirubin AST ALT Alkaline Phosphatase Ammonia Total Protein Albumin TSH (Reflex) Random Cortisol Ur Random Sodium Ur Random Potassium 05/15/24 05/16/24 05/16/24 21:07 00:42 05:28 WBC 11.7 H RBC 3.80 L Hgb 12.7 L Hct 36.5 L MCV 96.1 MCH 33.4 MCHC 34.8 RDW 14.0 Plt Count 182 MPV 11.4 H Immature Gran % (Auto) 0.9 H Neut % (Auto) 72.7 Lymph % (Auto) 10.1 L [place] % (Auto) 14.6 H Eos % (Auto) 1.3 Baso % (Auto) 0.4 Lymph # (Auto) 1.18 [place] # (Auto) 1.7 H Eos # (Auto) 0.2 Baso # (Auto) 0.1 Abs Immat Gran (auto) 0.10 H Absolute Neuts (auto) 8.5 H Absolute Nucleated RBC 0.000 Nucleated RBC % 0.0 APTT 137.1 H 135.1 H Puncture Site ABG pH ABG pCO2 ABG pO2 ABG PO2/FiO2 Ratio ABG HCO3 ABG O2 Saturation ABG O2 Content ABG Base Excess A-a Gradient Oxyhemoglobin Total Hemoglobin O2 Delivery Device O2 Liters/Min Minute Volume Vent Rate Vent Mode FiO2 Tidal Volume PEEP Peak Inspir Pressure Pressure Support Sodium 123 L 127 L Potassium 3.6 Chloride 96 L Carbon Dioxide 27 Anion Gap 4 BUN 12 D Creatinine 0.58 L Estim Creat Clear Calc 133 Estimated GFR > 60 Glucose 90 POC Capillary Glucose 103 Lactic Acid Calcium 7.4 L Phosphorus 2.4 L Magnesium 2.0 Total Bilirubin 0.8 AST 79 H ALT 65 H Alkaline Phosphatase 67 Ammonia Total Protein 5.0 L Albumin 2.9 L TSH (Reflex) Random Cortisol Ur Random Sodium Ur Random Potassium 05/16/24 05:39 WBC RBC Hgb Hct MCV MCH MCHC RDW Plt Count MPV Immature Gran % (Auto) Neut % (Auto) Lymph % (Auto) [place] % (Auto) Eos % (Auto) Baso % (Auto) Lymph # (Auto) [place] # (Auto) Eos # (Auto) Baso # (Auto) Abs Immat Gran (auto) Absolute Neuts (auto) Absolute Nucleated RBC Nucleated RBC % APTT Puncture Site Right radial ABG pH 7.422 ABG pCO2 38.7 ABG pO2 98.2 ABG PO2/FiO2 Ratio 2.45 ABG HCO3 24.7 ABG O2 Saturation 97.6 ABG O2 Content 18.4 ABG Base Excess 0.4 A-a Gradient 142.5 Oxyhemoglobin 96.4 Total Hemoglobin 13.5 O2 Delivery Device Ventilator O2 Liters/Min Not Reportable Minute Volume Not Reportable Vent Rate 16 Vent Mode Cmv FiO2 40 Tidal Volume 450 PEEP 5 Peak Inspir Pressure Not Reportable Pressure Support Not Reportable Sodium Potassium Chloride Carbon Dioxide Anion Gap BUN Creatinine Estim Creat Clear Calc Estimated GFR Glucose POC Capillary Glucose Lactic Acid Calcium Phosphorus Magnesium Total Bilirubin AST ALT Alkaline Phosphatase Ammonia Total Protein Albumin TSH (Reflex) Random Cortisol Ur Random Sodium Ur Random Potassium Quality VTE Prophylaxis VTE prophylaxis: pharmacologic ordered
[2024-05-16 12:53] LABS: Glucose Point of Care 94 mg/dl (65-105)
[2024-05-16 13:01] LABS: Sodium 130 mmol/L (137-145)
[2024-05-16 14:46] LABS: Partial Thromboplastin Time 90.8 Seconds (22.3-36.8)
--- NOTE | 2024-05-16 15:28 | P.PNIM_ITS ---
Progress Note: A&P Assessment and Plan (1) Sepsis: Qualifiers: Sepsis acute organ dysfunction status: with acute organ dysfunction Sepsis type: sepsis due to unspecified organism Severe sepsis acute organ dysfunction type: encephalopathy Severe sepsis shock status: without septic shock Qualified Code(s): A41.9 - Sepsis, unspecified organism; R65.20 - Severe sepsis without septic shock; G93.41 - Metabolic encephalopathy Code(s): A41.9 - Sepsis, unspecified organism Status: Acute Assessment and Plan: Patient presented with shortness of breath, generalized weakness, acute altered mental status -tachycardia, elevated WBC count -chest CTA likely pneumonia, possible cellulitis of the right knee -continue cefepime, doxycycline, vancomycin (05/14) -MRSA screen negative, will discontinue vancomycin (05/16) -blood pressures have remained stable, patient not requiring pressors -05/14: Blood cultures: Primary cultures are negative -05/15: Sputum cultures obtained and pending -05/15: Bilateral lower extremity venous Dopplers were negative for DVT bilaterally (2) Acute respiratory failure: Code(s): J96.00 - Acute respiratory failure, unspecified whether with hypoxia or hypercapnia Status: Acute Assessment and Plan: Acute respiratory failure could be multifactorial, inflammation RVR, seizures, chronic encephalomalacia, -05/14: intubated in the ER -Todd currently on CMV mode of ventilation, peep of 5, 70% FiO2. -chest x-ray and ABGs reviewed, ventilator adjusted -will add bronchodilators -sedated with propofol, maintain RASS of 0 to -2, daily SBT and SAT -will discontinue propofol, place patient on SBT, was still somnolent, decreased respiratory rate, patient going into apnea ventilation. Placed him on ASV mode of ventilation. Patient also given Lasix 40 mg IV x1 05/14/2024 CTA chest: IMPRESSION: 1. No evident pulmonary embolism. Sensitivity decreased in the segmental pulmonary arteries and nondiagnostic in many of the smaller subsegmental pulmonary arteries particularly in the lung bases due to combination of suboptimal contrast opacification, respiratory motion and streak artifact. 2. Small to moderate-sized bilateral pleural effusions with dependent compressive atelectasis. Difficult to exclude superimposed pneumonia although suspicion is low. 3. Cardiomegaly. 4. 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 2. Small lateral and third ventricles, which is a change from the prior exam. Shunt catheter unchanged in position. (4) Pneumonia: Qualifiers: Laterality: bilateral Lung location: lower lobe of lung Pneumonia type: due to unspecified organism Qualified Code(s): J18.9 - Pneumonia, unspecified organism Code(s): J18.9 - Pneumonia, unspecified organism Status: Acute Assessment and Plan: Continue antibiotics as above Sputum cultures have been obtained (5) Hyponatremia: Code(s): E87.1 - Hypo-osmolality and hyponatremia Status: Acute Assessment and Plan: Hyponatremia, multifactorial, could be related to pneumonia, SIADH, history of TBI, patient does have a history of hyponatremia in 2018, 2019, 2022 -currently on normal saline at 100 mL/hour -appropriate rise in sodium, 119 on admission. Sodium 127 this morning -nephrology following (6) Atrial fibrillation with rapid ventricular response: Code(s): I48.91 - Unspecified atrial fibrillation Status: Acute Assessment and Plan: Continue metoprolol and heparin infusion -will have Cardiology evaluate in the a.m. for atrial fibrillation as well as his moderate to severe mitral valve regurg, cardiomyopathy 05/15/2024 echocardiogram Summary 1. Complete two-dimensional, color flow and Doppler transthoracic echocardiogram is performed. 2. Left ventricular chamber dimension is mildly enlarged. 3. Left ventricular systolic function is moderately reduced, estimated at 35-40%. 4. There is mildly increased left ventricular wall thickness. 5. The left ventricular diastolic function is abnormal. 6. Left atrial chamber dimension is severely enlarged. 7. Right atrial chamber dimension is mildly enlarged. 8. There is moderate to severe mitral valve regurgitation. 9. There is mild tricuspid valve regurgitation. 10. Severe pulmonary hypertension, estimated pulmonary arterial systolic pressure is 72 mmHg. 11. There is mild pulmonic regurgitation. 12. Pleural effusion seen. (7) Acute brachiocephalic vein thrombosis: Code(s): I82.290 - Acute embolism and thrombosis of other thoracic veins Status: Acute Assessment and Plan: Patient's face was cyanotic, CTA chest showed complete occlusion of distal left brachiocephalic vein, -hospitalist discussed with Vascular surgery at [facility] ([facility]), Dr. Laird, the surgeon reviewed images, recommended heparin gtt only. No interventions indicated at this time. -continue heparin infusion -monitor coags Subjective Date/time seen: 05/16/24 15:28 Interval history: Patient still intubated but awake.Possible extubation trial today. Review of Systems Review of Systems: All systems reviewed & are unremarkable except as noted in HPI and below ROS unobtainable: Yes unobtainable due to endotracheal tube and unobtainable due to medical condition Exam Narrative: General: Patient is intubated sedated in no acute distress HEENT:? Pupils equal reactive, sclera is clear, ETT in place Neck:? Tracheostomy scar noted Respiratory:? Coarse breath sounds bilateral bases, adequate air entry, no wheezing Cardiac:? Irregularly irregular, rate controlled Abdomen:? Soft, nontender, nondistended, normoactive bowel sounds Extremities:? Palpable pedal pulses, left knee more boggy with surgical scar. Right knee erythematous, warm Neuro:? Intubated sedated, Patient opens his eyes to name and follows simple commands Skin:? Erythematous skin on right knee, no other skin lesions noted Psych:? Unable to assess Const: General: comfortable and no acute distress Other: , male, ill appearing HENMT: Face/Nose/Sinus: Normal nares present Mouth: Yes dry mucous membranes Other: ETT in place Eyes: General: appearance normal, both eyes and all related structures Sclera: sclerae normal Pupils: Equal, round and reactive pupils present Other: pupils pinpoint. Resp: Effort & Inspection: normal respiratory effort Other: faint bibasilar crackles, no wheezing. tolerated vent well. Cardio: Rate: tachycardic Rhythm: abnormal rhythm Other: no murmur. GI: Other: abdomen soft, nondistended. Normoactive BS in all quadrants. Urinary Catheter: Urinary Catheter: patent and draining Skin: Other: ecchymosis in various stages of healing and erythema to bilateral knees, erythema worse compared to initial exam that took place post-intubation. no drainage. no other macular/erythematous patches. Neuro: Cranial nerves: Yes Equal, round and reactive pupils present Other: moving all extremities. reacts to pain. intubated/sedated. Extrem: Other: faintly palpable DP pulses bilaterally, R stronger than L. 2+ pitting edema to BLE, symmetric. Psych: Other: unable to assess Objective Data Vital Signs Vital Signs: Vital Signs - 24 hr 05/15/24 16:00 05/15/24 16:00 05/15/24 16:00 Temperature 97.4 F L Pulse Rate 102 H 113 H Respiratory Rate 16 18 Blood Pressure 109/81 Pulse Oximetry 97 Oxygen Delivery Fraction of Inspired Oxygen 45 05/15/24 16:00 05/15/24 16:00 05/15/24 17:05 Temperature Pulse Rate 103 H 114 H Respiratory Rate Blood Pressure Pulse Oximetry 98 97 Oxygen Delivery Mechanical Ventilation Mechanical Ventilation Fraction of Inspired Oxygen 45 45 05/15/24 18:00 05/15/24 18:00 05/15/24 18:00 Temperature 97.5 F L Pulse Rate 99 104 H 112 H Respiratory Rate 18 16 Blood Pressure 113/86 Pulse Oximetry 98 Oxygen Delivery Fraction of Inspired Oxygen 05/15/24 19:52 05/15/24 20:00 05/15/24 20:00 Temperature Pulse Rate 108 H 108 H Respiratory Rate 18 Blood Pressure Pulse Oximetry Oxygen Delivery Fraction of Inspired Oxygen 45 05/15/24 20:00 05/15/24 20:08 05/15/24 20:08 Temperature 97.8 F Pulse Rate 109 H 110 H 112 H Respiratory Rate 17 17 Blood Pressure 112/83 Pulse Oximetry 97 97 Oxygen Delivery Mechanical Ventilation Fraction of Inspired Oxygen 45 05/15/24 20:16 05/15/24 21:00 05/15/24 21:20 Temperature Pulse Rate 106 H 107 H 107 H Respiratory Rate 17 16 Blood Pressure Pulse Oximetry 97 Oxygen Delivery Mechanical Ventilation Fraction of Inspired Oxygen 45 05/15/24 21:39 05/15/24 21:39 05/15/24 22:00 Temperature Pulse Rate 102 H 102 H 107 H Respiratory Rate 16 16 16 Blood Pressure Pulse Oximetry Oxygen Delivery Fraction of Inspired Oxygen 05/15/24 22:00 05/15/24 22:00 05/15/24 23:20 Temperature 97.9 F Pulse Rate 111 H 106 H 108 H Respiratory Rate 16 Blood Pressure 107/76 Pulse Oximetry 96 97 Oxygen Delivery Mechanical Ventilation Fraction of Inspired Oxygen 45 05/15/24 23:45 05/16/24 00:00 05/16/24 00:00 Temperature Pulse Rate 107 H 105 H 111 H Respiratory Rate 16 16 Blood Pressure Pulse Oximetry 97 Oxygen Delivery Mechanical Ventilation Fraction of Inspired Oxygen 45 05/16/24 00:00 05/16/24 00:00 05/16/24 02:00 Temperature 97.8 F Pulse Rate 105 H 107 H Respiratory Rate 16 16 Blood Pressure 117/85 Pulse Oximetry 97 Oxygen Delivery Fraction of Inspired Oxygen 45 05/16/24 02:00 05/16/24 02:00 05/16/24 02:00 Temperature 98.0 F Pulse Rate 107 H 107 H Respiratory Rate 16 Blood Pressure 119/84 Pulse Oximetry 97 Oxygen Delivery Fraction of Inspired Oxygen 40 05/16/24 03:00 05/16/24 03:15 05/16/24 03:17 Temperature Pulse Rate 111 H 115 H 107 H Respiratory Rate 17 17 Blood Pressure Pulse Oximetry 97 Oxygen Delivery Mechanical Ventilation Fraction of Inspired Oxygen 40 05/16/24 03:45 05/16/24 03:45 05/16/24 04:00 Temperature Pulse Rate 107 H 107 H 103 H Respiratory Rate 16 16 16 Blood Pressure Pulse Oximetry 96 Oxygen Delivery Mechanical Ventilation Fraction of Inspired Oxygen 40 05/16/24 04:00 05/16/24 04:00 05/16/24 04:00 Temperature 98.2 F Pulse Rate 103 H 99 Respiratory Rate 16 Blood Pressure 117/81 Pulse Oximetry 96 Oxygen Delivery Fraction of Inspired Oxygen 40 05/16/24 04:00 05/16/24 05:32 05/16/24 06:00 Temperature Pulse Rate 103 H 105 H 99 Respiratory Rate 16 Blood Pressure Pulse Oximetry 97 Oxygen Delivery Mechanical Ventilation Fraction of Inspired Oxygen 40 05/16/24 06:00 05/16/24 06:00 05/16/24 07:00 Temperature 98.0 F Pulse Rate 99 99 104 H Respiratory Rate 16 16 16 Blood Pressure 120/83 Pulse Oximetry 97 Oxygen Delivery Fraction of Inspired Oxygen 05/16/24 07:58 05/16/24 07:58 05/16/24 08:00 Temperature 98.1 F Pulse Rate 109 H 98 103 H Respiratory Rate 16 16 Blood Pressure 121/84 Pulse Oximetry 98 97 Oxygen Delivery Mechanical Ventilation Fraction of Inspired Oxygen 40 05/16/24 08:00 05/16/24 08:00 05/16/24 08:00 Temperature Pulse Rate 103 H Respiratory Rate 16 Blood Pressure Pulse Oximetry 97 Oxygen Delivery Mechanical Ventilation Fraction of Inspired Oxygen 40 40 05/16/24 08:00 05/16/24 08:16 05/16/24 08:19 Temperature Pulse Rate 105 H 104 H 95 Respiratory Rate 16 Blood Pressure Pulse Oximetry Oxygen Delivery Fraction of Inspired Oxygen 05/16/24 08:40 05/16/24 08:41 05/16/24 10:00 Temperature 99 F Pulse Rate 108 H 103 H Respiratory Rate 16 14 Blood Pressure 124/90 Pulse Oximetry 96 Oxygen Delivery Fraction of Inspired Oxygen 40 05/16/24 10:00 05/16/24 10:00 05/16/24 10:31 Temperature Pulse Rate 104 H 104 H Respiratory Rate 14 Blood Pressure Pulse Oximetry Oxygen Delivery Fraction of Inspired Oxygen 40 05/16/24 10:31 05/16/24 10:33 05/16/24 10:35 Temperature Pulse Rate 99 Respiratory Rate 8 L Blood Pressure Pulse Oximetry 95 Oxygen Delivery Mechanical Ventilation Fraction of Inspired Oxygen 40 40 05/16/24 12:00 05/16/24 12:00 05/16/24 12:00 Temperature 98.8 F Pulse Rate 101 H 113 H Respiratory Rate 14 14 Blood Pressure 122/99 H Pulse Oximetry 97 Oxygen Delivery Fraction of Inspired Oxygen 40 05/16/24 12:00 05/16/24 14:00 05/16/24 14:00 Temperature 98.6 F Pulse Rate 103 H 102 H Respiratory Rate 13 13 Blood Pressure 137/93 H Pulse Oximetry 97 96 Oxygen Delivery Mechanical Ventilation Fraction of Inspired Oxygen 40 05/16/24 15:16 Temperature Pulse Rate 107 H Respiratory Rate 11 L Blood Pressure Pulse Oximetry Oxygen Delivery Fraction of Inspired Oxygen Intake/Output Intake/Output: Intake & Output 05/13/24 05/14/24 05/15/24 05/16/24 23:59 23:59 23:59 23:59 Intake Total 1238.3 3361.3 1723.0 Output Total 1425 900 Balance 1238.3 1936.3 823.0 Meds/Results Medications: Active Medications Generic Name Dose Route Start Last Admin Trade Name Freq PRN Reason Stop Dose Admin Acetaminophen 650 mg 05/14/24 18:25 Acetaminophen Elixir 325 Mg/10.15 Ml Udc PO Q6H PRN Mild Pain (1-3) or Fever Dextrose 12.5 gm 05/15/24 19:27 Dextrose 50% 25 Gm/50 Ml Syringe IV PUSH PRN PRN Hypoglycemia Protocol Glucagon 1 mg 05/15/24 19:27 Glucagon For Inj 1 Mg Vial IM PRN PRN Hypoglycemia Protocol Glucose 15 gm 05/15/24 19:27 Glucose Oral Gel 15 Gm Of Glucse In 37.5 Gm Tube PO PRN PRN Hypoglycemia Protocol Heparin Sodium (Porcine) 6,500 units 05/14/24 17:17 Heparin Sodium 5,000 Units/Ml Vial IV PUSH PRN PRN aPTT less than 55 seconds Heparin Sodium (Porcine) 3,500 units 05/14/24 17:17 Heparin Sodium 5,000 Units/Ml Vial IV PUSH PRN PRN aPTT 55 - 70 seconds Heparin Sodium/Dextrose 25,000 units in 250 mls @ 7 mls/hr 05/14/24 17:20 05/16/24 15:08 Heparin Sodium/D5w 100 Units/Ml IV CONT 700 units/hr .Q24H DAKSHA 7 mls/hr Titration Protocol 700 UNITS/HR Doxycycline Hyclate 100 mg in 100 mls @ 100 mls/hr 05/14/24 19:00 05/16/24 06:12 Vibramycin 100 Mg/Ns 100 Ml IVPB 100 mls/hr Q12H DAKSHA Administration Propofol 100 mls @ 0 mls/hr 05/14/24 21:00 05/16/24 14:00 Diprivan IV CONT 0 mcg/kg/min .Q0M DAKSHA 0 mls/hr Titration Protocol 0 MCG/KG/MIN Cefepime HCl 2 gm in 50 mls @ 100 mls/hr 05/15/24 06:00 05/16/24 14:15 Maxipime 2 Gm/Ns 50 Ml IVPB Infused Q8HR DAKSHA Infusion Dextrose 1,000 mls @ 100 mls/hr 05/15/24 19:27 Dextrose 5% 1,000 Ml IVPB PRN PRN Hypoglycemia Protocol Ipratropium [place] 0.5 mg 05/15/24 14:00 05/16/24 15:14 Ipratropium Br 0.02% Inh Soln 0.5 Mg/2.5 Ml Vial INHALATION 0.5 mg Q6HRT DAKSHA Administration Levalbuterol HCl 0.63 mg 05/15/24 14:00 05/16/24 15:14 Levalbuterol Neb 1.25 Mg/3 Ml INHALATION 0.63 mg Q6HRT DAKSHA Administration Metoprolol Tartrate 2.5 mg 05/14/24 19:49 Metoprolol Tartrate Inj 5 Mg/5 Ml Vial IV PUSH Q3H PRN persistent tachycardia, >120 Metoprolol Tartrate 75 mg 05/16/24 21:00 Metoprolol Tartrate 25 Mg Tablet PO Q12HR DAKSHA Multi-Ingred Cream/Lotion/Oil/Oint 1 applic 05/14/24 21:00 05/16/24 08:17 Mineral Oil/White Petrolatum Ointment EACH EYE 1 applic Q12HR DAKSHA Administration Pantoprazole Sodium 40 mg 05/15/24 09:00 05/16/24 08:16 Pantoprazole Sodium Iv 40 Mg Vial IV PUSH 40 mg QAM DAKSHA Administration Perflutren Lipid Microsphere 0 ml 05/14/24 13:21 Perflutren Lipid Microspheres 1.5 Ml Vial Diluted To 10 Ml Total Volume IV PUSH 05/17/24 13:21 ONCE PRN adequate visualization Protocol Sodium Chloride 10 ml 05/14/24 22:00 05/16/24 13:46 Central Line Flush IV PUSH 10 ml Q8HR DAKSHA Administration Sodium Chloride 20 ml 05/14/24 19:36 Central Line Flush IV PUSH PRN PRN after blood draws Radiology Results: ITS Impressions Abdomen/Pelvis CT 05/14/24 13:28 IMPRESSION: 1. Pulmonary edema. 2. Small pleural effusions. 3. Small volume of ascites. Head CT 05/14/24 15:43 IMPRESSION: 1. 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 2. Small lateral and third ventricles, which is a change from the prior exam. Shunt catheter unchanged in position. Chest CTA 05/14/24 15:49 IMPRESSION: 1. No evident pulmonary embolism. Sensitivity decreased in the segmental pulmonary arteries and nondiagnostic in many of the smaller subsegmental pulm onary arteries particularly in the lung bases due to combination of suboptimal contrast opacification, respiratory motion and streak artifact. 2. Small to moderate-sized bilateral pleural effusions with dependent compressive atelectasis. Difficult to exclude superimposed pneumonia although suspicion is low. 3. Cardiomegaly. 4. 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 Nasogastric tube in stomach. 2. Cardiomegaly. 3. Retrocardiac opacity left lower lung zone which could represent persistent small pleural effusion, atelectasis or pneumonia. Venous Doppler Study 05/15/24 12:29 IMPRESSION: 1. No deep venous thrombosis in either lower limb. Chest X-Ray 05/16/24 06:32 Impression: Mild pulmonary edema pattern with small left pleural effusion and left lower lobe atelectasis. Support tubes, as above. Labs Labs: Laboratory Results - last 24 hr 05/15/24 05/15/24 05/15/24 10:52 17:34 21:07 WBC RBC Hgb Hct MCV MCH MCHC RDW Plt Count MPV Immature Gran % (Auto) Neut % (Auto) Lymph % (Auto) [place] % (Auto) Eos % (Auto) Baso % (Auto) Lymph # (Auto) [place] # (Auto) Eos # (Auto) Baso # (Auto) Abs Immat Gran (auto) Absolute Neuts (auto) Absolute Nucleated RBC Nucleated RBC % APTT 137.1 H Puncture Site ABG pH ABG pCO2 ABG pO2 ABG PO2/FiO2 Ratio ABG HCO3 ABG O2 Saturation ABG O2 Content ABG Base Excess A-a Gradient Oxyhemoglobin Total Hemoglobin O2 Delivery Device O2 Liters/Min Minute Volume Vent Rate Vent Mode FiO2 Tidal Volume PEEP Peak Inspir Pressure Pressure Support Sodium 123 L Potassium Chloride Carbon Dioxide Anion Gap BUN Creatinine Estim Creat Clear Calc Estimated GFR Glucose POC Capillary Glucose 89 Calcium Phosphorus Magnesium Total Bilirubin AST ALT Alkaline Phosphatase Total Protein 4.7 L Albumin 05/16/24 05/16/24 05/16/24 00:42 05:28 05:39 WBC 11.7 H RBC 3.80 L Hgb 12.7 L Hct 36.5 L MCV 96.1 MCH 33.4 MCHC 34.8 RDW 14.0 Plt Count 182 MPV 11.4 H Immature Gran % (Auto) 0.9 H Neut % (Auto) 72.7 Lymph % (Auto) 10.1 L [place] % (Auto) 14.6 H Eos % (Auto) 1.3 Baso % (Auto) 0.4 Lymph # (Auto) 1.18 [place] # (Auto) 1.7 H Eos # (Auto) 0.2 Baso # (Auto) 0.1 Abs Immat Gran (auto) 0.10 H Absolute Neuts (auto) 8.5 H Absolute Nucleated RBC 0.000 Nucleated RBC % 0.0 APTT 135.1 H Puncture Site Right radial ABG pH 7.422 ABG pCO2 38.7 ABG pO2 98.2 ABG PO2/FiO2 Ratio 2.45 ABG HCO3 24.7 ABG O2 Saturation 97.6 ABG O2 Content 18.4 ABG Base Excess 0.4 A-a Gradient 142.5 Oxyhemoglobin 96.4 Total Hemoglobin 13.5 O2 Delivery Device Ventilator O2 Liters/Min Not Reportable Minute Volume Not Reportable Vent Rate 16 Vent Mode Cmv FiO2 40 Tidal Volume 450 PEEP 5 Peak Inspir Pressure Not Reportable Pressure Support Not Reportable Sodium 127 L Potassium 3.6 Chloride 96 L Carbon Dioxide 27 Anion Gap 4 BUN 12 D Creatinine 0.58 L Estim Creat Clear Calc 133 Estimated GFR > 60 Glucose 90 POC Capillary Glucose 103 Calcium 7.4 L Phosphorus 2.4 L Magnesium 2.0 Total Bilirubin 0.8 AST 79 H ALT 65 H Alkaline Phosphatase 67 Total Protein 5.0 L Albumin 2.9 L 05/16/24 05/16/24 05/16/24 12:40 12:43 12:50 WBC RBC Hgb Hct MCV MCH MCHC RDW Plt Count MPV Immature Gran % (Auto) Neut % (Auto) Lymph % (Auto) [place] % (Auto) Eos % (Auto) Baso % (Auto) Lymph # (Auto) [place] # (Auto) Eos # (Auto) Baso # (Auto) Abs Immat Gran (auto) Absolute Neuts (auto) Absolute Nucleated RBC Nucleated RBC % APTT 90.8 H Puncture Site ABG pH ABG pCO2 ABG pO2 ABG PO2/FiO2 Ratio ABG HCO3 ABG O2 Saturation ABG O2 Content ABG Base Excess A-a Gradient Oxyhemoglobin Total Hemoglobin O2 Delivery Device O2 Liters/Min Minute Volume Vent Rate Vent Mode FiO2 Tidal Volume PEEP Peak Inspir Pressure Pressure Support Sodium 130 L Potassium Chloride Carbon Dioxide Anion Gap BUN Creatinine Estim Creat Clear Calc Estimated GFR Glucose POC Capillary Glucose 94 Calcium Phosphorus Magnesium Total Bilirubin AST ALT Alkaline Phosphatase Total Protein Albumin Quality VTE Prophylaxis VTE prophylaxis: pharmacologic ordered Hospitalist MIPS Advance Care Plan I have confirmed that the patient's Advanced Care Plan is present, code status is documented, or surrogate decision maker is listed in patient medical record.: Yes Medication Reconciliation I have utilized all available resources to obtain, update and review the patients current medications (includes all prescriptions, OTC, herbals, cannabis, and nutritional supplements).: Yes
[2024-05-16] MEDS: HEPARIN SOD/D5W 100 UNITS/ML 25,000 UNITS/250 ML BAG 7 UNITS IV CONT (16:47)
[2024-05-16] MEDS: PROPOFOL IV EMULSION 100 ML 2.72 MG IV CONT (17:30)
[2024-05-16 18:45] LABS: Glucose Point of Care 95 mg/dl (65-105)
[2024-05-16] MEDS: METOPROLOL TARTRATE 25 MG TABLET 75 MG PO (20:54)
[2024-05-16] MEDS: CENTRAL LINE FLUSH 20 ML IV PUSH (20:55)
[2024-05-16 21:01] LABS: Sodium 131 mmol/L (137-145); Triglycerides 164 mg/dL (<150)
[2024-05-16 21:04] LABS: Partial Thromboplastin Time 48.3 Seconds (22.3-36.8)
[2024-05-16] MEDS: HEPARIN SODIUM 5,000 UNITS/ML VIAL 6500 UNITS IV PUSH (21:26)
[2024-05-17] VITALS (29 sets, daily range): BP systolic 112–144; BP diastolic 91–112; PULSE 93–130; RESP 16–26; TEMP 36.7–37.4; O2SAT 87–96; BMI 29.9
[2024-05-17 00:23] LABS: Glucose Point of Care 116 mg/dl (65-105)
[2024-05-17] MEDS: IPRATROPIUM BR 0.02% INH SOLN 0.5 MG/2.5 ML VIAL INHALATION ×4 (01:58→20:45)
[2024-05-17] MEDS: LEVALBUTEROL NEB 1.25 MG/3 ML 0.63 MG INHALATION ×4 (01:58→20:45)
[2024-05-17 04:09] LABS: Basophils Absolute Auto 0.1 K/mm3 (0.0-0.1); Basophils Percent Auto 0.6 % (0.2-1.2); Eosinophils Absolute Auto 0.2 K/mm3 (0-0.3); Eosinophils Percent Auto 1.6 % (0-4.4); Hematocrit 38.2 % (42.0-52.0); Immature Granulocyte Absolute 0.08 K/mm3 (0.00-0.031); Immature Granulocyte Percent A 0.7 % (0-0.5); Lymphocytes Absolute Auto 1.59 K/mm3 (0.9-3.2); Lymphocytes Percent Auto 13.5 % (18.3-44.2); Mean Platelet Volume 11.1 fl (7.4-10.4); Monocytes Absolute Auto 1.7 K/mm3 (0.1-0.6); Monocytes Percent Auto 14.3 % (2.6-8.5); Neutrophils Absolute Auto 8.1 K/mm3 (1.3-6.7); Neutrophils Percent Auto 69.3 % (45.5-73.1); Platelet Count Result 208 k/mm3 (150-375); Red Blood Count 3.94 M/mm3 (4.6-6.20); Red Cell Distribution Width 14.3 % (11.5-14.5); White Blood Count 11.8 K/mm3 (4.5-10.0)
[2024-05-17 04:20] LABS: Alanine Aminotransferase 57 U/L (6-50); Albumin Level 2.9 g/dL (3.5-5.1); Alkaline Phosphatase 75 U/L (38-126); Anion Gap 7 mmol/L (4-12); Aspartate Amino Transferase 57 U/L (17-59); Bilirubin,Total 0.6 mg/dL (0.2-1.3); Blood Urea Nitrogen 15 mg/dL (9-20); Calcium 8.1 mg/dL (8.4-10.2); Carbon Dioxide 29 mmol/L (22-30); Chloride 96 mmol/L (98-107); Estimated CRCL calculation 157 ml/min; Estimated Glomerular Filt Rate > 60; Glucose 108 mg/dL (65-110); Magnesium 1.8 mg/dL (1.6-2.3); Phosphorus 3.2 mg/dL (2.5-4.5); Potassium 3.6 mmol/L (3.4-5.0); Sodium 132 mmol/L (137-145); Triglycerides 171 mg/dL (<150)
[2024-05-17 04:23] LABS: Partial Thromboplastin Time 138.9 Seconds (22.3-36.8)
[2024-05-17 04:49] LABS: Alveolar/Arterial O2 Gradient 143.9 mmHg; Base Excess ABG 2.8 mEq/l (+/-2.0); Carboxyhemoglobin 0.6 % THb (0-2.0); Fractional Inspired Oxygen 40 %; HCO3 ABG 27.1 mEq/l (22.0-26.0); Methemoglobin ABG 0.1 %THb (0-1.5); Oxygen Content ABG 18.6 %vol (16.0-22.0); Oxygen Saturation ABG 97.5 % (95.0-100.0); Oxyhemoglobin 96.6 % THb (90.0-100.0); PCO2 ABG 40.5 mmHg (35.0-45.0); PO2 ABG 94.7 mmHg (80.0-100.0); PO2 FiO2 Ratio Arterial Blood 2.37 %; Reduced Hemoglobin 2.7 %THb (0-5.0); Total Hemoglobin 13.6 g/dL (12.0-18.0); pH ABG 7.443 (7.350-7.450)
[2024-05-17 04:51] LABS: Device VENTILATOR; Modified Allen's Test Pass; Site Drawn RIGHT RADIAL
[2024-05-17 04:52] LABS: Arterial Blood Gas PEEP 5 cmH2O; Arterial Blood Gas Tidal Volume 450 ml; Arterial Blood Gas Vent Mode CMV; Arterial Blood Gas Ventilator rate 16 /MIN
[2024-05-17] MEDS: PROPOFOL IV EMULSION 100 ML 13.58 MG IV CONT (05:04)
[2024-05-17] MEDS: CEFEPIME 2 GM/NS 50 ML 2 GM/50 ML BAG IVPB ×3 (05:06→21:03)
[2024-05-17] MEDS: CENTRAL LINE FLUSH 10 ML IV PUSH ×3 (05:06→21:03)
[2024-05-17] MEDS: DOXYCYCLINE 100 MG/NS 100 ML 100 MG/100 ML BAG IVPB ×2 (06:02→18:08)
[2024-05-17 06:12] LABS: Glucose Point of Care 112 mg/dl (65-105)
[2024-05-17] MEDS: METOPROLOL TARTRATE 25 MG TABLET 75 MG PO ×2 (10:03→20:39)
[2024-05-17] MEDS: MINERAL OIL/WHITE PETROLATUM OINTMENT 1 APPLIC EACH EYE (10:03)
[2024-05-17] MEDS: PANTOPRAZOLE SODIUM IV 40 MG VIAL IV PUSH (10:03)
--- NOTE | 2024-05-17 10:45 | PM.PNNEP ---
Subjective Date/time seen: 05/17/24 10:45 Interval history: Follow-up for acute on chronic hyponatremia. Chart reviewed -- assuming care from Dr. Rice; Objective Data Vital Signs Vital Signs: Vital Signs Temp Pulse Resp BP Pulse Ox O2 Del Method O2 Flow Rate 05/17/24 10:00 98.9 F 99 16 134/111 H 96 05/17/24 10:00 105 H 16 05/17/24 09:00 103 H 18 05/17/24 08:01 104 H 96 Mechanical Ventilation 05/17/24 08:00 100 18 05/17/24 08:00 101 H 05/17/24 08:00 05/17/24 08:00 95 Mechanical Ventilation 05/17/24 08:00 98.6 F 100 17 127/91 H 95 05/17/24 06:00 98.6 F 96 16 115/92 H 95 05/17/24 06:00 96 05/17/24 06:00 96 16 05/17/24 05:20 104 H 96 Mechanical Ventilation 05/17/24 05:04 93 16 05/17/24 04:51 93 16 05/17/24 04:00 98.0 F 102 H 18 128/95 H 96 05/17/24 04:00 05/17/24 04:00 105 H 05/17/24 04:00 102 H 18 96 Mechanical Ventilation 05/17/24 03:59 103 H 95 Mechanical Ventilation 05/17/24 02:07 106 H 16 05/17/24 02:00 104 H 16 05/17/24 02:00 98.2 F 104 H 16 119/93 H 95 05/17/24 02:00 104 H 05/17/24 01:57 106 H 16 05/17/24 00:47 103 H 95 Mechanical Ventilation 05/17/24 00:00 98 16 05/17/24 00:00 98 16 95 Mechanical Ventilation 05/17/24 00:00 98.2 F 98 16 112/91 H 95 05/17/24 00:00 05/17/24 00:00 103 H 05/16/24 22:42 103 H 16 05/16/24 22:42 103 H 16 05/16/24 22:00 98.3 F 105 H 16 123/93 H 95 05/16/24 22:00 105 H 05/16/24 22:00 105 H 16 05/16/24 21:25 103 H 16 05/16/24 21:00 106 H 16 97 Mechanical Ventilation 05/16/24 21:00 106 H 16 05/16/24 20:58 103 H 16 05/16/24 20:58 103 H 97 Mechanical Ventilation 05/16/24 20:54 105 H 05/16/24 20:00 98.6 F 107 H 16 129/100 H 96 05/16/24 20:00 05/16/24 20:00 106 H 05/16/24 20:00 107 H 16 05/16/24 19:19 103 H 18 Intake/Output Intake/Output: Intake & Output 05/14/24 05/15/24 05/16/24 05/17/24 23:59 23:59 23:59 23:59 Intake Total 1238.3 3361.3 2728.6 1258.5 Output Total 1425 3900 1300 Balance 1238.3 1936.3 -1171.4 -41.5 Meds/Results Medications: Active Medications Generic Name Dose Route Start Last Admin Trade Name Freq PRN Reason Stop Dose Admin Acetaminophen 650 mg 05/14/24 18:25 Acetaminophen Elixir 325 Mg/10.15 Ml Udc PO Q6H PRN Mild Pain (1-3) or Fever Dextrose 12.5 gm 05/15/24 19:27 Dextrose 50% 25 Gm/50 Ml Syringe IV PUSH PRN PRN Hypoglycemia Protocol Glucagon 1 mg 05/15/24 19:27 Glucagon For Inj 1 Mg Vial IM PRN PRN Hypoglycemia Protocol Glucose 15 gm 05/15/24 19:27 Glucose Oral Gel 15 Gm Of Glucse In 37.5 Gm Tube PO PRN PRN Hypoglycemia Protocol Heparin Sodium (Porcine) 6,500 units 05/14/24 17:17 05/16/24 21:26 Heparin Sodium 5,000 Units/Ml Vial IV PUSH 6,500 units PRN PRN Administration aPTT less than 55 seconds Heparin Sodium (Porcine) 3,500 units 05/14/24 17:17 Heparin Sodium 5,000 Units/Ml Vial IV PUSH PRN PRN aPTT 55 - 70 seconds Heparin Sodium/Dextrose 25,000 units in 250 mls @ 6 mls/hr 05/14/24 17:20 05/17/24 13:05 Heparin Sodium/D5w 100 Units/Ml IV CONT 600 units/hr .Q24H DAKSHA 6 mls/hr Titration Protocol 600 UNITS/HR Doxycycline Hyclate 100 mg in 100 mls @ 100 mls/hr 05/14/24 19:00 05/17/24 18:08 Vibramycin 100 Mg/Ns 100 Ml IVPB 05/19/24 18:59 100 mls/hr Q12H DAKSHA Administration Propofol 100 mls @ 0 mls/hr 05/14/24 21:00 05/17/24 09:00 Diprivan IV CONT 0 mcg/kg/min .Q0M DAKSHA 0 mls/hr Titration Protocol Cefepime HCl 2 gm in 50 mls @ 100 mls/hr 05/15/24 06:00 05/17/24 15:28 Maxipime 2 Gm/Ns 50 Ml IVPB 100 mls/hr Q8HR DAKSHA Administration Dextrose 1,000 mls @ 100 mls/hr 05/15/24 19:27 Dextrose 5% 1,000 Ml IVPB PRN PRN Hypoglycemia Protocol Ipratropium Elliott 0.5 mg 05/15/24 14:00 05/17/24 15:35 Ipratropium Br 0.02% Inh Soln 0.5 Mg/2.5 Ml Vial INHALATION 0.5 mg Q6HRT DAKSHA Administration Levalbuterol HCl 0.63 mg 05/15/24 14:00 05/17/24 15:35 Levalbuterol Neb 1.25 Mg/3 Ml INHALATION 0.63 mg Q6HRT DAKSHA Administration Metoprolol Tartrate 2.5 mg 05/14/24 19:49 Metoprolol Tartrate Inj 5 Mg/5 Ml Vial IV PUSH Q3H PRN persistent tachycardia, >120 Metoprolol Tartrate 75 mg 05/16/24 21:00 05/17/24 10:03 Metoprolol Tartrate 25 Mg Tablet PO 75 mg Q12HR DAKSHA Administration Multi-Ingred Cream/Lotion/Oil/Oint 1 applic 05/14/24 21:00 05/17/24 10:03 Mineral Oil/White Petrolatum Ointment EACH EYE 1 applic Q12HR DAKSHA Administration Pantoprazole Sodium 40 mg 05/15/24 09:00 05/17/24 10:03 Pantoprazole Sodium Iv 40 Mg Vial IV PUSH 40 mg QAM DAKSHA Administration Polyethylene Glycol 17 gm 05/17/24 10:30 05/17/24 11:04 Polyethylene Glycol 3350 17 Gm Powd.Pack PO 17 gm QAM DAKSHA Administration Senna/Docusate Sodium 1 tab 05/17/24 10:35 05/17/24 11:04 Senna/Docusate Sodium Tablet PO 1 tab DAILY DAKSHA Administration Sodium Chloride 10 ml 05/14/24 22:00 05/17/24 15:29 Central Line Flush IV PUSH 10 ml Q8HR DAKSHA Administration Sodium Chloride 20 ml 05/14/24 19:36 05/16/24 20:55 Central Line Flush IV PUSH 20 ml PRN PRN Administration after blood draws Radiology Results: ITS Impressions Abdomen/Pelvis CT 05/14/24 13:28 IMPRESSION: 1. Pulmonary edema. 2. Small pleural effusions. 3. Small volume of ascites. Head CT 05/14/24 15:43 IMPRESSION: 1. 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 2. Small lateral and third ventricles, which is a change from the prior exam. Shunt catheter unchanged in position. Chest CTA 05/14/24 15:49 IMPRESSION: 1. No evident pulmonary embolism. Sensitivity decreased in the segmental pulmonary arteries and nondiagnostic in many of the smaller subsegmental pulmonary arteries particularly in the lung bases due to combination of suboptimal contrast opacification, respiratory motion and streak artifact. 2. Small to moderate-sized bilateral pleural effusions with dependent compressive atelectasis. Difficult to exclude superimposed pneumonia although suspicion is low. 3. Cardiomegaly. 4. 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 Nasogastric tube in stomach. 2. Cardiomegaly. 3. Retrocardiac opacity left lower lung zone which could represent persistent small pleural effusion, atelectasis or pneumonia. Venous Doppler Study 05/15/24 12:29 IMPRESSION: 1. No deep venous thrombosis in either lower limb. Chest X-Ray 05/17/24 07:40 Impression: Retrocardiac consolidation could reflect atelectasis/edema versus pneumonia. Minimal left pleural effusion. Interval improvement in haziness at the right lung base. Support tubes, as above. Labs Labs: Laboratory Tests 05/17/24 03:54 05/17/24 03:54 05/15/24 05/16/24 05/16/24 10:52 17:54 20:36 WBC RBC Hgb Hct MCV MCH MCHC RDW Plt Count MPV Immature Gran % (Auto) Neut % (Auto) Lymph % (Auto) [place] % (Auto) Eos % (Auto) Baso % (Auto) Lymph # (Auto) [place] # (Auto) Eos # (Auto) Baso # (Auto) Abs Immat Gran (auto) Absolute Neuts (auto) Absolute Nucleated RBC Nucleated RBC % APTT 48.3 H Puncture Site ABG pH ABG pCO2 ABG pO2 ABG PO2/FiO2 Ratio ABG HCO3 ABG O2 Saturation ABG O2 Content ABG Base Excess A-a Gradient Oxyhemoglobin Carboxyhemoglobin Methemoglobin Reduced Hemoglobin Total Hemoglobin O2 Delivery Device O2 Liters/Min Minute Volume Vent Rate Vent Mode FiO2 Tidal Volume PEEP Peak Inspir Pressure Pressure Support Sodium 131 L Potassium Chloride Carbon Dioxide Anion Gap BUN Creatinine Estim Creat Clear Calc Estimated GFR Glucose POC Capillary Glucose 95 Calcium Phosphorus Magnesium Total Bilirubin AST ALT Alkaline Phosphatase Total Protein Albumin Triglycerides 164 H [place]/Lambda Ratio 1.07 Free [place] Light Chains 7.7 Free Lambda Light Chain 7.2 05/17/24 05/17/24 05/17/24 00:18 03:54 04:46 WBC 11.8 H RBC 3.94 L Hgb 13.0 L Hct 38.2 L MCV 97.0 MCH 33.0 MCHC 34.0 RDW 14.3 Plt Count 208 MPV 11.1 H Immature Gran % (Auto) 0.7 H Neut % (Auto) 69.3 Lymph % (Auto) 13.5 L [place] % (Auto) 14.3 H Eos % (Auto) 1.6 Baso % (Auto) 0.6 Lymph # (Auto) 1.59 [place] # (Auto) 1.7 H Eos # (Auto) 0.2 Baso # (Auto) 0.1 Abs Immat Gran (auto) 0.08 H Absolute Neuts (auto) 8.1 H Absolute Nucleated RBC 0.000 Nucleated RBC % 0.0 APTT 138.9 H Puncture Site Right radial ABG pH 7.443 ABG pCO2 40.5 ABG pO2 94.7 ABG PO2/FiO2 Ratio 2.37 ABG HCO3 27.1 H ABG O2 Saturation 97.5 ABG O2 Content 18.6 ABG Base Excess 2.8 A-a Gradient 143.9 Oxyhemoglobin 96.6 Carboxyhemoglobin 0.6 Methemoglobin 0.1 Reduced Hemoglobin 2.7 Total Hemoglobin 13.6 O2 Delivery Device Ventilator O2 Liters/Min Not Reportable Minute Volume Not Reportable Vent Rate 16 Vent Mode Cmv FiO2 40 Tidal Volume 450 PEEP 5 Peak Inspir Pressure Not Reportable Pressure Support Not Reportable Sodium 132 L Potassium 3.6 Chloride 96 L Carbon Dioxide 29 Anion Gap 7 BUN 15 Creatinine 0.56 L Estim Creat Clear Calc 157 Estimated GFR > 60 Glucose 108 POC Capillary Glucose 116 H Calcium 8.1 L Phosphorus 3.2 Magnesium 1.8 Total Bilirubin 0.6 AST 57 ALT 57 H Alkaline Phosphatase 75 Total Protein 6.0 L Albumin 2.9 L Triglycerides 171 H [place]/Lambda Ratio Free [place] Light Chains Free Lambda Light Chain 05/17/24 05/17/24 05/17/24 06:08 12:09 12:29 WBC RBC Hgb Hct MCV MCH MCHC RDW Plt Count MPV Immature Gran % (Auto) Neut % (Auto) Lymph % (Auto) [place] % (Auto) Eos % (Auto) Baso % (Auto) Lymph # (Auto) [place] # (Auto) Eos # (Auto) Baso # (Auto) Abs Immat Gran (auto) Absolute Neuts (auto) Absolute Nucleated RBC Nucleated RBC % APTT 116.6 H Puncture Site ABG pH ABG pCO2 ABG pO2 ABG PO2/FiO2 Ratio ABG HCO3 ABG O2 Saturation ABG O2 Content ABG Base Excess A-a Gradient Oxyhemoglobin Carboxyhemoglobin Methemoglobin Reduced Hemoglobin Total Hemoglobin O2 Delivery Device O2 Liters/Min Minute Volume Vent Rate Vent Mode FiO2 Tidal Volume PEEP Peak Inspir Pressure Pressure Support Sodium Potassium Chloride Carbon Dioxide Anion Gap BUN Creatinine Estim Creat Clear Calc Estimated GFR Glucose POC Capillary Glucose 112 H 111 H Calcium Phosphorus Magnesium Total Bilirubin AST ALT Alkaline Phosphatase Total Protein Albumin Triglycerides [place]/Lambda Ratio Free [place] Light Chains Free Lambda Light Chain 05/17/24 05/17/24 13:20 18:19 WBC RBC Hgb Hct MCV MCH MCHC RDW Plt Count MPV Immature Gran % (Auto) Neut % (Auto) Lymph % (Auto) [place] % (Auto) Eos % (Auto) Baso % (Auto) Lymph # (Auto) [place] # (Auto) Eos # (Auto) Baso # (Auto) Abs Immat Gran (auto) Absolute Neuts (auto) Absolute Nucleated RBC Nucleated RBC % APTT Puncture Site Right radial ABG pH 7.477 H ABG pCO2 34.4 L ABG pO2 98.2 ABG PO2/FiO2 Ratio 2.45 ABG HCO3 24.9 ABG O2 Saturation 97.9 ABG O2 Content 18.8 ABG Base Excess 1.8 A-a Gradient 147.4 Oxyhemoglobin 97.2 Carboxyhemoglobin Methemoglobin Reduced Hemoglobin Total Hemoglobin 13.7 O2 Delivery Device Ventilator O2 Liters/Min Not Reportable Minute Volume Not Reportable Vent Rate Not Reportable Vent Mode Spontaneous FiO2 40 Tidal Volume Not Reportable PEEP 5 Peak Inspir Pressure 8 Pressure Support Not Reportable Sodium Potassium Chloride Carbon Dioxide Anion Gap BUN Creatinine Estim Creat Clear Calc Estimated GFR Glucose POC Capillary Glucose 100 Calcium Phosphorus Magnesium Total Bilirubin AST ALT Alkaline Phosphatase Total Protein Albumin Triglycerides [place]/Lambda Ratio Free [place] Light Chains Free Lambda Light Chain Microbiology 05/15/24 08:34 Sputum Sputum Culture - Preliminary
[2024-05-17] MEDS: SENNA/DOCUSATE SODIUM TABLET 1 TAB PO (11:04)
[2024-05-17] MEDS: polyethylene glycoL 3350 17 GM POWD.PACK PO (11:04)
[2024-05-17 11:14] LABS: Kappa\\Lambda Light Chains 1.07 (0.26-1.65); Lambda Light Chain 7.2 mg/L (5.7-26.3)
[2024-05-17 12:11] LABS: Glucose Point of Care 111 mg/dl (65-105)
--- NOTE | 2024-05-17 12:19 | PCRCNOTE ---
pt placed on SBT 12/19 at 12:05
[2024-05-17 12:50] LABS: Partial Thromboplastin Time 116.6 Seconds (22.3-36.8)
[2024-05-17 13:28] LABS: Alveolar/Arterial O2 Gradient 147.4 mmHg; Base Excess ABG 1.8 mEq/l (+/-2.0); Device VENTILATOR; Fractional Inspired Oxygen 40 %; HCO3 ABG 24.9 mEq/l (22.0-26.0); Modified Allen's Test Pass; Oxygen Content ABG 18.8 %vol (16.0-22.0); Oxygen Saturation ABG 97.9 % (95.0-100.0); Oxyhemoglobin 97.2 % THb (90.0-100.0); PCO2 ABG 34.4 mmHg (35.0-45.0); PO2 ABG 98.2 mmHg (80.0-100.0); PO2 FiO2 Ratio Arterial Blood 2.45 %; Site Drawn RIGHT RADIAL; Total Hemoglobin 13.7 g/dL (12.0-18.0); pH ABG 7.477 (7.350-7.450)
[2024-05-17 13:29] LABS: Arterial Blood Gas PEEP 5 cmH2O; Arterial Blood Gas Vent Mode SPONTANEOUS; Peak Inspiratory Pressure 8 cmH2O
--- NOTE | 2024-05-17 13:46 | PCRCNOTE ---
EXTUBATED 13:40
--- NOTE | 2024-05-17 15:16 | P.PNINT_ITS ---
Progress Note: A&P Assessment and Plan (1) Sepsis: Qualifiers: Sepsis type: sepsis due to unspecified organism Sepsis acute organ dysfunction status: with acute organ dysfunction Severe sepsis acute organ dysfunction type: encephalopathy Severe sepsis shock status: without septic shock Qualified Code(s): A41.9 - Sepsis, unspecified organism; R65.20 - Severe sepsis without septic shock; G93.41 - Metabolic encephalopathy Code(s): A41.9 - Sepsis, unspecified organism Status: Acute Assessment and Plan: Patient presented with shortness of breath, generalized weakness, acute altered mental status -tachycardia, elevated WBC count -chest CTA likely pneumonia, possible cellulitis of the right knee -continue cefepime, doxycycline, (05/14) -MRSA screen negative, discontinue vancomycin (05/16) -blood pressures have remained stable, patient not requiring pressors -05/14: Blood cultures: Primary cultures are negative -05/15: Sputum cultures are negative -05/15: Bilateral lower extremity venous Dopplers were negative for DVT bilaterally (2) Acute respiratory failure: Code(s): J96.00 - Acute respiratory failure, unspecified whether with hypoxia or hypercapnia Status: Acute Assessment and Plan: Acute respiratory failure could be multifactorial, inflammation RVR, seizures, chronic encephalomalacia, -05/14: intubated in the ER -Todd currently on CMV mode of ventilation, peep of 5, 70% FiO2. -chest x-ray and ABGs reviewed, ventilator adjusted -will add bronchodilators -sedated with propofol, maintain RASS of 0 to -2, daily SBT and SAT -05/17:will discontinue propofol, place patient on SBT, hopefully will be extubated today 05/14/2024 CTA chest: IMPRESSION: 1. No evident pulmonary embolism. Sensitivity decreased in the segmental pulmonary arteries and nondiagnostic in many of the smaller subsegmental pulmonary arteries particularly in the lung bases due to combination of suboptimal contrast opacification, respiratory motion and streak artifact. 2. Small to moderate-sized bilateral pleural effusions with dependent compressive atelectasis. Difficult to exclude superimposed pneumonia although suspicion is low. 3. Cardiomegaly. 4. 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 2. Small lateral and third ventricles, which is a change from the prior exam. Shunt catheter unchanged in position. (4) Pneumonia: Qualifiers: Pneumonia type: due to unspecified organism Laterality: bilateral Lung location: lower lobe of lung Qualified Code(s): J18.9 - Pneumonia, unspecified organism Code(s): J18.9 - Pneumonia, unspecified organism Status: Acute Assessment and Plan: Continue antibiotics as above Sputum cultures negative (5) Hyponatremia: Code(s): E87.1 - Hypo-osmolality and hyponatremia Status: Acute Assessment and Plan: Hyponatremia, multifactorial, could be related to pneumonia, SIADH, history of TBI, patient does have a history of hyponatremia in 2018, 2019, 2022 -currently on normal saline at 100 mL/hour -appropriate rise in sodium, 119 on admission. Sodium 132 this morning -nephrology following (6) Atrial fibrillation with rapid ventricular response: Code(s): I48.91 - Unspecified atrial fibrillation Status: Acute Assessment and Plan: Continue metoprolol and heparin infusion -will have Cardiology evaluate in the a.m. for atrial fibrillation as well as his moderate to severe mitral valve regurg, cardiomyopathy 05/15/2024 echocardiogram Summary 1. Complete two-dimensional, color flow and Doppler transthoracic echocardiogram is performed. 2. Left ventricular chamber dimension is mildly enlarged. 3. Left ventricular systolic function is moderately reduced, estimated at 35-40%. 4. There is mildly increased left ventricular wall thickness. 5. The left ventricular diastolic function is abnormal. 6. Left atrial chamber dimension is severely enlarged. 7. Right atrial chamber dimension is mildly enlarged. 8. There is moderate to severe mitral valve regurgitation. 9. There is mild tricuspid valve regurgitation. 10. Severe pulmonary hypertension, estimated pulmonary arterial systolic pressure is 72 mmHg. 11. There is mild pulmonic regurgitation. 12. Pleural effusion seen. (7) Acute brachiocephalic vein thrombosis: Code(s): I82.290 - Acute embolism and thrombosis of other thoracic veins Status: Acute Assessment and Plan: Patient's face was cyanotic, CTA chest showed complete occlusion of distal left brachiocephalic vein, -hospitalist discussed with Vascular surgery at [facility] ([facility]), Dr. Laird, the surgeon reviewed images, recommended heparin gtt only. No interventions indicated at this time. -continue heparin infusion -monitor coags Plan DVT prophylaxis: Heparin infusion Stress ulcer prophylaxis: Protonix IV Nutrition: Tolerating tube Code Status: Full code Critical Care Time Spent: 32 minute Discussed with mother and sister and updated her with patient's condition and plan of care. I answered their questions Due to a high probability of clinically significant, life threatening deterioration, the patient required my highest level of preparedness to intervene emergently and I personally spent this critical care time directly and personally managing the patient. This critical care time included obtaining a history; examining the patient; pulse oximetry; ordering and review of studies; arranging urgent treatment with development of a management plan; evaluation of patient's response to treatment; frequent reassessment; and discussions with other providers. It was exclusive of separately billable procedures and treating other patients and teaching time. Please see Assessment and Plan section and the rest of the note for further information on patient assessment and treatment This dictation may have been done utilizing a voice recognition system. Attempts have been made to correct errors. However, there may be uncorrected grammatical, spelling, and recognitions errors present. Subjective Date/time seen: 05/17/24 15:16 Interval history: Reason for consult: Shortness of breath, generalized weakness, acute respiratory failure, atrial fibrillation RVR, pneumonia 05/17/2024: Patient seen and examined the ICU, remains intubated on CMV mode of ventilation, peep of 5, 40% FiO2. Sedated with propofol infusion, patient is awake, alert, follows simple commands. I have asked the bedside RN to turn off the sedation. Urine output has been adequate, afebrile, hemodynamically stable, remains in AFib, rate controlled. Patient was placed on ASV mode of ventilation yesterday as he was somnolent despite propofol being discontinued. He was placed back on CMV mode of in the evening yesterday. Review of Systems Review of Systems: ROS unobtainable: Yes unobtainable due to endotracheal tube and unobtainable due to medical condition Exam Narrative: General: Patient is intubated sedated in no acute distress HEENT:? Pupils equal reactive, sclera is clear, ETT in place Neck:? Tracheostomy scar noted Respiratory:? Coarse breath sounds bilateral bases, adequate air entry, no wheezing Cardiac:? Irregularly irregular, rate controlled Abdomen:? Soft, nontender, nondistended, normoactive bowel sounds Extremities:? Palpable pedal pulses, left knee more boggy with surgical scar. Right knee erythematous, warm Neuro:? Intubated sedated, Patient opens his eyes to name and follows simple commands Skin:? Erythematous skin on right knee, no other skin lesions noted Psych:? Unable to assess Objective Data Vital Signs Vital Signs: Vital Signs - 24 hr 05/16/24 15:18 05/16/24 15:30 05/16/24 16:00 Temperature Pulse Rate 102 H 103 H 109 H Respiratory Rate 13 Blood Pressure Pulse Oximetry 95 Oxygen Delivery Mechanical Ventilation Fraction of Inspired Oxygen 40 05/16/24 16:00 05/16/24 16:00 05/16/24 16:00 Temperature 98.6 F Pulse Rate 111 H 109 H Respiratory Rate 14 12 Blood Pressure 135/97 H Pulse Oximetry 96 99 Oxygen Delivery Mechanical Ventilation Fraction of Inspired Oxygen 40 05/16/24 16:00 05/16/24 17:13 05/16/24 17:30 Temperature Pulse Rate 126 H 136 H Respiratory Rate 16 Blood Pressure Pulse Oximetry 100 Oxygen Delivery Mechanical Ventilation Fraction of Inspired Oxygen 40 40 05/16/24 17:30 05/16/24 17:35 05/16/24 17:40 Temperature Pulse Rate 150 H 125 H Respiratory Rate 16 16 Blood Pressure Pulse Oximetry Oxygen Delivery Fraction of Inspired Oxygen 40 05/16/24 17:48 05/16/24 18:00 05/16/24 18:00 Temperature 98.1 F Pulse Rate 100 108 H 107 H Respiratory Rate 17 Blood Pressure 132/104 H Pulse Oximetry 99 96 Oxygen Delivery Mechanical Ventilation Fraction of Inspired Oxygen 40 05/16/24 18:00 05/16/24 19:19 05/16/24 20:00 Temperature Pulse Rate 106 H 103 H 107 H Respiratory Rate 17 18 16 Blood Pressure Pulse Oximetry Oxygen Delivery Fraction of Inspired Oxygen 05/16/24 20:00 05/16/24 20:00 05/16/24 20:00 Temperature 98.6 F Pulse Rate 106 H 107 H Respiratory Rate 16 Blood Pressure 129/100 H Pulse Oximetry 96 Oxygen Delivery Fraction of Inspired Oxygen 40 05/16/24 20:54 05/16/24 20:58 05/16/24 20:58 Temperature Pulse Rate 105 H 103 H 103 H Respiratory Rate 16 Blood Pressure Pulse Oximetry 97 Oxygen Delivery Mechanical Ventilation Fraction of Inspired Oxygen 40 05/16/24 21:00 05/16/24 21:00 05/16/24 21:25 Temperature Pulse Rate 106 H 106 H 103 H Respiratory Rate 16 16 16 Blood Pressure Pulse Oximetry 97 Oxygen Delivery Mechanical Ventilation Fraction of Inspired Oxygen 40 05/16/24 22:00 05/16/24 22:00 05/16/24 22:00 Temperature 98.3 F Pulse Rate 105 H 105 H 105 H Respiratory Rate 16 16 Blood Pressure 123/93 H Pulse Oximetry 95 Oxygen Delivery Fraction of Inspired Oxygen 05/16/24 22:42 05/16/24 22:42 05/17/24 00:00 Temperature Pulse Rate 103 H 103 H 103 H Respiratory Rate 16 16 Blood Pressure Pulse Oximetry Oxygen Delivery Fraction of Inspired Oxygen 05/17/24 00:00 05/17/24 00:00 05/17/24 00:00 Temperature 98.2 F Pulse Rate 98 98 Respiratory Rate 16 16 Blood Pressure 112/91 H Pulse Oximetry 95 95 Oxygen Delivery Mechanical Ventilation Fraction of Inspired Oxygen 40 40 05/17/24 00:00 05/17/24 00:47 05/17/24 01:57 Temperature Pulse Rate 98 103 H 106 H Respiratory Rate 16 16 Blood Pressure Pulse Oximetry 95 Oxygen Delivery Mechanical Ventilation Fraction of Inspired Oxygen 40 05/17/24 02:00 05/17/24 02:00 05/17/24 02:00 Temperature 98.2 F Pulse Rate 104 H 104 H 104 H Respiratory Rate 16 16 Blood Pressure 119/93 H Pulse Oximetry 95 Oxygen Delivery Fraction of Inspired Oxygen 05/17/24 02:07 05/17/24 03:59 05/17/24 04:00 Temperature Pulse Rate 106 H 103 H 102 H Respiratory Rate 16 18 Blood Pressure Pulse Oximetry 95 96 Oxygen Delivery Mechanical Ventilation Mechanical Ventilation Fraction of Inspired Oxygen 40 40 05/17/24 04:00 05/17/24 04:00 05/17/24 04:00 Temperature 98.0 F Pulse Rate 105 H 102 H Respiratory Rate 18 Blood Pressure 128/95 H Pulse Oximetry 96 Oxygen Delivery Fraction of Inspired Oxygen 40 05/17/24 04:51 05/17/24 05:04 05/17/24 05:20 Temperature Pulse Rate 93 93 104 H Respiratory Rate 16 16 Blood Pressure Pulse Oximetry 96 Oxygen Delivery Mechanical Ventilation Fraction of Inspired Oxygen 40 05/17/24 06:00 05/17/24 06:00 05/17/24 06:00 Temperature 98.6 F Pulse Rate 96 96 96 Respiratory Rate 16 16 Blood Pressure 115/92 H Pulse Oximetry 95 Oxygen Delivery Fraction of Inspired Oxygen 05/17/24 08:00 05/17/24 08:00 05/17/24 08:00 Temperature 98.6 F Pulse Rate 100 Respiratory Rate 17 Blood Pressure 127/91 H Pulse Oximetry 95 95 Oxygen Delivery Mechanical Ventilation Fraction of Inspired Oxygen 40 40 05/17/24 08:00 05/17/24 08:00 05/17/24 08:01 Temperature Pulse Rate 101 H 100 104 H Respiratory Rate 18 Blood Pressure Pulse Oximetry 96 Oxygen Delivery Mechanical Ventilation Fraction of Inspired Oxygen 40 05/17/24 09:00 05/17/24 10:00 05/17/24 10:00 Temperature 98.9 F Pulse Rate 103 H 105 H 99 Respiratory Rate 18 16 16 Blood Pressure 134/111 H Pulse Oximetry 96 Oxygen Delivery Fraction of Inspired Oxygen 05/17/24 10:00 05/17/24 10:03 05/17/24 12:00 Temperature 98.8 F Pulse Rate 99 98 99 Respiratory Rate 16 Blood Pressure 126/103 H Pulse Oximetry 96 Oxygen Delivery Fraction of Inspired Oxygen 05/17/24 12:00 05/17/24 12:00 05/17/24 12:00 Temperature Pulse Rate 97 Respiratory Rate Blood Pressure Pulse Oximetry 96 Oxygen Delivery Mechanical Ventilation Fraction of Inspired Oxygen 40 40 05/17/24 12:15 05/17/24 14:00 05/17/24 14:00 Temperature 98.9 F Pulse Rate 109 H 112 H 112 H Respiratory Rate 25 H Blood Pressure 144/104 H Pulse Oximetry 96 93 Oxygen Delivery Mechanical Ventilation Fraction of Inspired Oxygen 40 Intake/Output Intake/Output: Intake & Output 05/14/24 05/15/24 05/16/24 05/17/24 23:59 23:59 23:59 23:59 Intake Total 1238.3 3361.3 2728.6 1028.5 Output Total 1425 3900 450 Balance 1238.3 1936.3 -1171.4 578.5 Meds/Results Medications: Active Medications Generic Name Dose Route Start Last Admin Trade Name Freq PRN Reason Stop Dose Admin Acetaminophen 650 mg 05/14/24 18:25 Acetaminophen Elixir 325 Mg/10.15 Ml Udc PO Q6H PRN Mild Pain (1-3) or Fever Dextrose 12.5 gm 05/15/24 19:27 Dextrose 50% 25 Gm/50 Ml Syringe IV PUSH PRN PRN Hypoglycemia Protocol Glucagon 1 mg 05/15/24 19:27 Glucagon For Inj 1 Mg Vial IM PRN PRN Hypoglycemia Protocol Glucose 15 gm 05/15/24 19:27 Glucose Oral Gel 15 Gm Of Glucse In 37.5 Gm Tube PO PRN PRN Hypoglycemia Protocol Heparin Sodium (Porcine) 6,500 units 05/14/24 17:17 05/16/24 21:26 Heparin Sodium 5,000 Units/Ml Vial IV PUSH 6,500 units PRN PRN Administration aPTT less than 55 seconds Heparin Sodium (Porcine) 3,500 units 05/14/24 17:17 Heparin Sodium 5,000 Units/Ml Vial IV PUSH PRN PRN aPTT 55 - 70 seconds Heparin Sodium/Dextrose 25,000 units in 250 mls @ 6 mls/hr 05/14/24 17:20 05/17/24 13:05 Heparin Sodium/D5w 100 Units/Ml IV CONT 600 units/hr .Q24H DAKSHA 6 mls/hr Titration Protocol 600 UNITS/HR Doxycycline Hyclate 100 mg in 100 mls @ 100 mls/hr 05/14/24 19:00 05/17/24 06:02 Vibramycin 100 Mg/Ns 100 Ml IVPB 05/19/24 18:59 100 mls/hr Q12H DAKSHA Administration Propofol 100 mls @ 0 mls/hr 05/14/24 21:00 05/17/24 09:00 Diprivan IV CONT 0 mcg/kg/min .Q0M DAKSHA 0 mls/hr Titration Protocol Cefepime HCl 2 gm in 50 mls @ 100 mls/hr 05/15/24 06:00 05/17/24 06:02 Maxipime 2 Gm/Ns 50 Ml IVPB Infused Q8HR DAKSHA Infusion Dextrose 1,000 mls @ 100 mls/hr 05/15/24 19:27 Dextrose 5% 1,000 Ml IVPB PRN PRN Hypoglycemia Protocol Ipratropium [place] 0.5 mg 05/15/24 14:00 05/17/24 09:59 Ipratropium Br 0.02% Inh Soln 0.5 Mg/2.5 Ml Vial INHALATION 0.5 mg Q6HRT DAKSHA Administration Levalbuterol HCl 0.63 mg 05/15/24 14:00 05/17/24 09:59 Levalbuterol Neb 1.25 Mg/3 Ml INHALATION 0.63 mg Q6HRT DAKSHA Administration Metoprolol Tartrate 2.5 mg 05/14/24 19:49 Metoprolol Tartrate Inj 5 Mg/5 Ml Vial IV PUSH Q3H PRN persistent tachycardia, >120 Metoprolol Tartrate 75 mg 05/16/24 21:00 05/17/24 10:03 Metoprolol Tartrate 25 Mg Tablet PO 75 mg Q12HR DAKSHA Administration Multi-Ingred Cream/Lotion/Oil/Oint 1 applic 05/14/24 21:00 05/17/24 10:03 Mineral Oil/White Petrolatum Ointment EACH EYE 1 applic Q12HR DAKSHA Administration Pantoprazole Sodium 40 mg 05/15/24 09:00 05/17/24 10:03 Pantoprazole Sodium Iv 40 Mg Vial IV PUSH 40 mg QAM DAKSHA Administration Polyethylene Glycol 17 gm 05/17/24 10:30 05/17/24 11:04 Polyethylene Glycol 3350 17 Gm Powd.Pack PO 17 gm QAM DAKSHA Administration Senna/Docusate Sodium 1 tab 05/17/24 10:35 05/17/24 11:04 Senna/Docusate Sodium Tablet PO 1 tab DAILY DAKSHA Administration Sodium Chloride 10 ml 05/14/24 22:00 05/17/24 05:06 Central Line Flush IV PUSH 10 ml Q8HR DAKSHA Administration Sodium Chloride 20 ml 05/14/24 19:36 05/16/24 20:55 Central Line Flush IV PUSH 20 ml PRN PRN Administration after blood draws Radiology Results: ITS Impressions Abdomen/Pelvis CT 05/14/24 13:28 IMPRESSION: 1. Pulmonary edema. 2. Small pleural effusions. 3. Small volume of ascites. Head CT 05/14/24 15:43 IMPRESSION: 1. 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 2. Small lateral and third ventricles, which is a change from the prior exam. Shunt catheter unchanged in position. Chest CTA 05/14/24 15:49 IMPRESSION: 1. No evident pulmonary embolism. Sensitivity decreased in the segmental pulmonary arteries and nondiagnostic in many of the smaller subsegmental pulmonary arteries particularly in the lung bases due to combination of suboptimal contrast opacification, respiratory motion and streak artifact. 2. Small to moderate-sized bilateral pleural effusions with dependent compressive atelectasis. Difficult to exclude superimposed pneumonia although suspicion is low. 3. Cardiomegaly. 4. 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 Nasogastric tube in stomach. 2. Cardiomegaly. 3. Retrocardiac opacity left lower lung zone which could represent persistent small pleural effusion, atelectasis or pneumonia. Venous Doppler Study 05/15/24 12:29 IMPRESSION: 1. No deep venous thrombosis in either lower limb. Chest X-Ray 05/17/24 07:40 Impression: Retrocardiac consolidation could reflect atelectasis/edema versus pneumonia. Minimal left pleural effusion. Interval improvement in haziness at the right lung base. Support tubes, as above. Labs Labs: Laboratory Results - last 24 hr 05/15/24 05/16/24 05/16/24 10:52 17:54 20:36 WBC RBC Hgb Hct MCV MCH MCHC RDW Plt Count MPV Immature Gran % (Auto) Neut % (Auto) Lymph % (Auto) [place] % (Auto) Eos % (Auto) Baso % (Auto) Lymph # (Auto) [place] # (Auto) Eos # (Auto) Baso # (Auto) Abs Immat Gran (auto) Absolute Neuts (auto) Absolute Nucleated RBC Nucleated RBC % APTT 48.3 H Puncture Site ABG pH ABG pCO2 ABG pO2 ABG PO2/FiO2 Ratio ABG HCO3 ABG O2 Saturation ABG O2 Content ABG Base Excess A-a Gradient Oxyhemoglobin Carboxyhemoglobin Methemoglobin Reduced Hemoglobin Total Hemoglobin O2 Delivery Device O2 Liters/Min Minute Volume Vent Rate Vent Mode FiO2 Tidal Volume PEEP Peak Inspir Pressure Pressure Support Sodium 131 L Potassium Chloride Carbon Dioxide Anion Gap BUN Creatinine Estim Creat Clear Calc Estimated GFR Glucose POC Capillary Glucose 95 Calcium Phosphorus Magnesium Total Bilirubin AST ALT Alkaline Phosphatase Total Protein Albumin Triglycerides 164 H [place]/Lambda Ratio 1.07 Free [place] Light Chains 7.7 Free Lambda Light Chain 7.2 03/06/0805/17/24 05/17/24 00:18 03:54 04:46 WBC 11.8 H RBC 3.94 L Hgb 13.0 L Hct 38.2 L MCV 97.0 MCH 33.0 MCHC 34.0 RDW 14.3 Plt Count 208 MPV 11.1 H Immature Gran % (Auto) 0.7 H Neut % (Auto) 69.3 Lymph % (Auto) 13.5 L [place] % (Auto) 14.3 H Eos % (Auto) 1.6 Baso % (Auto) 0.6 Lymph # (Auto) 1.59 [place] # (Auto) 1.7 H Eos # (Auto) 0.2 Baso # (Auto) 0.1 Abs Immat Gran (auto) 0.08 H Absolute Neuts (auto) 8.1 H Absolute Nucleated RBC 0.000 Nucleated RBC % 0.0 APTT 138.9 H Puncture Site Right radial ABG pH 7.443 ABG pCO2 40.5 ABG pO2 94.7 ABG PO2/FiO2 Ratio 2.37 ABG HCO3 27.1 H ABG O2 Saturation 97.5 ABG O2 Content 18.6 ABG Base Excess 2.8 A-a Gradient 143.9 Oxyhemoglobin 96.6 Carboxyhemoglobin 0.6 Methemoglobin 0.1 Reduced Hemoglobin 2.7 Total Hemoglobin 13.6 O2 Delivery Device Ventilator O2 Liters/Min Not Reportable Minute Volume Not Reportable Vent Rate 16 Vent Mode Cmv FiO2 40 Tidal Volume 450 PEEP 5 Peak Inspir Pressure Not Reportable Pressure Support Not Reportable Sodium 132 L Potassium 3.6 Chloride 96 L Carbon Dioxide 29 Anion Gap 7 BUN 15 Creatinine 0.56 L Estim Creat Clear Calc 157 Estimated GFR > 60 Glucose 108 POC Capillary Glucose 116 H Calcium 8.1 L Phosphorus 3.2 Magnesium 1.8 Total Bilirubin 0.6 AST 57 ALT 57 H Alkaline Phosphatase 75 Total Protein 6.0 L Albumin 2.9 L Triglycerides 171 H [place]/Lambda Ratio Free [place] Light Chains Free Lambda Light Chain 05/17/24 05/17/24 05/17/24 06:08 12:09 12:29 WBC RBC Hgb Hct MCV MCH MCHC RDW Plt Count MPV Immature Gran % (Auto) Neut % (Auto) Lymph % (Auto) [place] % (Auto) Eos % (Auto) Baso % (Auto) Lymph # (Auto) [place] # (Auto) Eos # (Auto) Baso # (Auto) Abs Immat Gran (auto) Absolute Neuts (auto) Absolute Nucleated RBC Nucleated RBC % APTT 116.6 H Puncture Site ABG pH ABG pCO2 ABG pO2 ABG PO2/FiO2 Ratio ABG HCO3 ABG O2 Saturation ABG O2 Content ABG Base Excess A-a Gradient Oxyhemoglobin Carboxyhemoglobin Methemoglobin Reduced Hemoglobin Total Hemoglobin O2 Delivery Device O2 Liters/Min Minute Volume Vent Rate Vent Mode FiO2 Tidal Volume PEEP Peak Inspir Pressure Pressure Support Sodium Potassium Chloride Carbon Dioxide Anion Gap BUN Creatinine Estim Creat Clear Calc Estimated GFR Glucose POC Capillary Glucose 112 H 111 H Calcium Phosphorus Magnesium Total Bilirubin AST ALT Alkaline Phosphatase Total Protein Albumin Triglycerides [place]/Lambda Ratio Free [place] Light Chains Free Lambda Light Chain 05/17/24 13:20 WBC RBC Hgb Hct MCV MCH MCHC RDW Plt Count MPV Immature Gran % (Auto) Neut % (Auto) Lymph % (Auto) [place] % (Auto) Eos % (Auto) Baso % (Auto) Lymph # (Auto) [place] # (Auto) Eos # (Auto) Baso # (Auto) Abs Immat Gran (auto) Absolute Neuts (auto) Absolute Nucleated RBC Nucleated RBC % APTT Puncture Site Right radial ABG pH 7.477 H ABG pCO2 34.4 L ABG pO2 98.2 ABG PO2/FiO2 Ratio 2.45 ABG HCO3 24.9 ABG O2 Saturation 97.9 ABG O2 Content 18.8 ABG Base Excess 1.8 A-a Gradient 147.4 Oxyhemoglobin 97.2 Carboxyhemoglobin Methemoglobin Reduced Hemoglobin Total Hemoglobin 13.7 O2 Delivery Device Ventilator O2 Liters/Min Not Reportable Minute Volume Not Reportable Vent Rate Not Reportable Vent Mode Spontaneous FiO2 40 Tidal Volume Not Reportable PEEP 5 Peak Inspir Pressure 8 Pressure Support Not Reportable Sodium Potassium Chloride Carbon Dioxide Anion Gap BUN Creatinine Estim Creat Clear Calc Estimated GFR Glucose POC Capillary Glucose Calcium Phosphorus Magnesium Total Bilirubin AST ALT Alkaline Phosphatase Total Protein Albumin Triglycerides [place]/Lambda Ratio Free [place] Light Chains Free Lambda Light Chain Quality VTE Prophylaxis VTE prophylaxis: pharmacologic ordered
[2024-05-17] MEDS: racEPINEPHrine 2.25% NEBU SOLN 0.5 ML VIAL.NEB INHALATION (15:35)
--- NOTE | 2024-05-17 15:56 | P.PNIM_ITS ---
Progress Note: A&P Assessment and Plan (1) Sepsis: Qualifiers: Sepsis acute organ dysfunction status: with acute organ dysfunction Sepsis type: sepsis due to unspecified organism Severe sepsis acute organ dysfunction type: encephalopathy Severe sepsis shock status: without septic shock Qualified Code(s): A41.9 - Sepsis, unspecified organism; R65.20 - Severe sepsis without septic shock; G93.41 - Metabolic encephalopathy Code(s): A41.9 - Sepsis, unspecified organism Status: Acute Assessment and Plan: Patient presented with shortness of breath, generalized weakness, acute altered mental status -tachycardia, elevated WBC count -chest CTA likely pneumonia, possible cellulitis of the right knee -continue cefepime, doxycycline, (05/14) -MRSA screen negative, discontinue vancomycin (05/16) -blood pressures have remained stable, patient not requiring pressors -05/14: Blood cultures: Primary cultures are negative -05/15: Sputum cultures are negative -05/15: Bilateral lower extremity venous Dopplers were negative for DVT bilaterally (2) Acute respiratory failure: Code(s): J96.00 - Acute respiratory failure, unspecified whether with hypoxia or hypercapnia Status: Acute Assessment and Plan: Acute respiratory failure could be multifactorial, inflammation RVR, seizures, chronic encephalomalacia, -05/14: intubated in the ER -Todd currently on CMV mode of ventilation, peep of 5, 70% FiO2. -chest x-ray and ABGs reviewed, ventilator adjusted -will add bronchodilators -sedated with propofol, maintain RASS of 0 to -2, daily SBT and SAT -05/17:will discontinue propofol, place patient on SBT, hopefully will be extubated today 05/14/2024 CTA chest: IMPRESSION: 1. No evident pulmonary embolism. Sensitivity decreased in the segmental pulmonary arteries and nondiagnostic in many of the smaller subsegmental pulmonary arteries particularly in the lung bases due to combination of suboptimal contrast opacification, respiratory motion and streak artifact. 2. Small to moderate-sized bilateral pleural effusions with dependent compressive atelectasis. Difficult to exclude superimposed pneumonia although suspicion is low. 3. Cardiomegaly. 4. 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 2. Small lateral and third ventricles, which is a change from the prior exam. Shunt catheter unchanged in position. (4) Pneumonia: Qualifiers: Laterality: bilateral Lung location: lower lobe of lung Pneumonia type: due to unspecified organism Qualified Code(s): J18.9 - Pneumonia, unspecified organism Code(s): J18.9 - Pneumonia, unspecified organism Status: Acute Assessment and Plan: Continue antibiotics as above Sputum cultures negative (5) Hyponatremia: Code(s): E87.1 - Hypo-osmolality and hyponatremia Status: Acute Assessment and Plan: Hyponatremia, multifactorial, could be related to pneumonia, SIADH, history of TBI, patient does have a history of hyponatremia in 2018, 2019, 2022 -currently on normal saline at 100 mL/hour -appropriate rise in sodium, 119 on admission. Sodium 132 this morning -nephrology following (6) Atrial fibrillation with rapid ventricular response: Code(s): I48.91 - Unspecified atrial fibrillation Status: Acute Assessment and Plan: Continue metoprolol and heparin infusion -will have Cardiology evaluate in the a.m. for atrial fibrillation as well as his moderate to severe mitral valve regurg, cardiomyopathy 05/15/2024 echocardiogram Summary 1. Complete two-dimensional, color flow and Doppler transthoracic echocardiogram is performed. 2. Left ventricular chamber dimension is mildly enlarged. 3. Left ventricular systolic function is moderately reduced, estimated at 35-40%. 4. There is mildly increased left ventricular wall thickness. 5. The left ventricular diastolic function is abnormal. 6. Left atrial chamber dimension is severely enlarged. 7. Right atrial chamber dimension is mildly enlarged. 8. There is moderate to severe mitral valve regurgitation. 9. There is mild tricuspid valve regurgitation. 10. Severe pulmonary hypertension, estimated pulmonary arterial systolic pressure is 72 mmHg. 11. There is mild pulmonic regurgitation. 12. Pleural effusion seen. (7) Acute brachiocephalic vein thrombosis: Code(s): I82.290 - Acute embolism and thrombosis of other thoracic veins Status: Acute Assessment and Plan: Patient's face was cyanotic, CTA chest showed complete occlusion of distal left brachiocephalic vein, -hospitalist discussed with Vascular surgery at [facility] ([facility]), Dr. Laird, the surgeon reviewed images, recommended heparin gtt only. No interventions indicated at this time. -continue heparin infusion -monitor coags Subjective Date/time seen: 05/17/24 15:56 Interval history: Possible extubation trail today. Review of Systems Review of Systems: All systems reviewed & are unremarkable except as noted in HPI and below ROS unobtainable: Yes unobtainable due to endotracheal tube and unobtainable due to medical condition Exam Narrative: General: Patient is intubated sedated in no acute distress HEENT:? Pupils equal reactive, sclera is clear, ETT in place Neck:? Tracheostomy scar noted Respiratory:? Coarse breath sounds bilateral bases, adequate air entry, no wheezing Cardiac:? Irregularly irregular, rate controlled Abdomen:? Soft, nontender, nondistended, normoactive bowel sounds Extremities:? Palpable pedal pulses, left knee more boggy with surgical scar. Right knee erythematous, warm Neuro:? Intubated sedated, Patient opens his eyes to name and follows simple commands Skin:? Erythematous skin on right knee, no other skin lesions noted Psych:? Unable to assess Const: General: comfortable and no acute distress Other: , male, ill appearing HENMT: Face/Nose/Sinus: Normal nares present Mouth: Yes dry mucous membranes Other: ETT in place Eyes: General: appearance normal, both eyes and all related structures Sclera: sclerae normal Pupils: Equal, round and reactive pupils present Other: pupils pinpoint. Resp: Effort & Inspection: normal respiratory effort Other: faint bibasilar crackles, no wheezing. tolerated vent well. Cardio: Rate: tachycardic Rhythm: abnormal rhythm Other: no murmur. GI: Other: abdomen soft, nondistended. Normoactive BS in all quadrants. Urinary Catheter: Urinary Catheter: patent and draining Skin: Other: ecchymosis in various stages of healing and erythema to bilateral knees, erythema worse compared to initial exam that took place post-intubation. no drainage. no other macular/erythematous patches. Neuro: Cranial nerves: Yes Equal, round and reactive pupils present Other: moving all extremities. reacts to pain. intubated/sedated. Extrem: Other: faintly palpable DP pulses bilaterally, R stronger than L. 2+ pitting edema to BLE, symmetric. Psych: Other: unable to assess Objective Data Vital Signs Vital Signs: Vital Signs - 24 hr 05/16/24 16:00 05/16/24 16:00 05/16/24 16:00 Temperature 98.6 F Pulse Rate 109 H 111 H 109 H Respiratory Rate 14 12 Blood Pressure 135/97 H Pulse Oximetry 96 Oxygen Delivery Fraction of Inspired Oxygen 05/16/24 16:00 05/16/24 16:00 05/16/24 17:13 Temperature Pulse Rate 126 H Respiratory Rate Blood Pressure Pulse Oximetry 99 100 Oxygen Delivery Mechanical Ventilation Mechanical Ventilation Fraction of Inspired Oxygen 40 40 40 05/16/24 17:30 05/16/24 17:30 05/16/24 17:35 Temperature Pulse Rate 136 H 150 H Respiratory Rate 16 16 Blood Pressure Pulse Oximetry Oxygen Delivery Fraction of Inspired Oxygen 40 05/16/24 17:40 05/16/24 17:48 05/16/24 18:00 Temperature Pulse Rate 125 H 100 108 H Respiratory Rate 16 Blood Pressure Pulse Oximetry 99 Oxygen Delivery Mechanical Ventilation Fraction of Inspired Oxygen 40 05/16/24 18:00 05/16/24 18:00 05/16/24 19:19 Temperature 98.1 F Pulse Rate 107 H 106 H 103 H Respiratory Rate 17 17 18 Blood Pressure 132/104 H Pulse Oximetry 96 Oxygen Delivery Fraction of Inspired Oxygen 05/16/24 20:00 05/16/24 20:00 05/16/24 20:00 Temperature Pulse Rate 107 H 106 H Respiratory Rate 16 Blood Pressure Pulse Oximetry Oxygen Delivery Fraction of Inspired Oxygen 40 05/16/24 20:00 05/16/24 20:54 05/16/24 20:58 Temperature 98.6 F Pulse Rate 107 H 105 H 103 H Respiratory Rate 16 Blood Pressure 129/100 H Pulse Oximetry 96 97 Oxygen Delivery Mechanical Ventilation Fraction of Inspired Oxygen 40 05/16/24 20:58 05/16/24 21:00 05/16/24 21:00 Temperature Pulse Rate 103 H 106 H 106 H Respiratory Rate 16 16 16 Blood Pressure Pulse Oximetry 97 Oxygen Delivery Mechanical Ventilation Fraction of Inspired Oxygen 40 05/16/24 21:25 05/16/24 22:00 05/16/24 22:00 Temperature Pulse Rate 103 H 105 H 105 H Respiratory Rate 16 16 Blood Pressure Pulse Oximetry Oxygen Delivery Fraction of Inspired Oxygen 05/16/24 22:00 05/16/24 22:42 05/16/24 22:42 Temperature 98.3 F Pulse Rate 105 H 103 H 103 H Respiratory Rate 16 16 16 Blood Pressure 123/93 H Pulse Oximetry 95 Oxygen Delivery Fraction of Inspired Oxygen 05/17/24 00:00 05/17/24 00:00 05/17/24 00:00 Temperature 98.2 F Pulse Rate 103 H 98 Respiratory Rate 16 Blood Pressure 112/91 H Pulse Oximetry 95 Oxygen Delivery Fraction of Inspired Oxygen 40 05/17/24 00:00 05/17/24 00:00 05/17/24 00:47 Temperature Pulse Rate 98 98 103 H Respiratory Rate 16 16 Blood Pressure Pulse Oximetry 95 95 Oxygen Delivery Mechanical Ventilation Mechanical Ventilation Fraction of Inspired Oxygen 40 40 05/17/24 01:57 05/17/24 02:00 05/17/24 02:00 Temperature 98.2 F Pulse Rate 106 H 104 H 104 H Respiratory Rate 16 16 Blood Pressure 119/93 H Pulse Oximetry 95 Oxygen Delivery Fraction of Inspired Oxygen 05/17/24 02:00 05/17/24 02:07 05/17/24 03:59 Temperature Pulse Rate 104 H 106 H 103 H Respiratory Rate 16 16 Blood Pressure Pulse Oximetry 95 Oxygen Delivery Mechanical Ventilation Fraction of Inspired Oxygen 40 05/17/24 04:00 05/17/24 04:00 05/17/24 04:00 Temperature Pulse Rate 102 H 105 H Respiratory Rate 18 Blood Pressure Pulse Oximetry 96 Oxygen Delivery Mechanical Ventilation Fraction of Inspired Oxygen 40 40 05/17/24 04:00 05/17/24 04:51 05/17/24 05:04 Temperature 98.0 F Pulse Rate 102 H 93 93 Respiratory Rate 18 16 16 Blood Pressure 128/95 H Pulse Oximetry 96 Oxygen Delivery Fraction of Inspired Oxygen 05/17/24 05:20 05/17/24 06:00 05/17/24 06:00 Temperature Pulse Rate 104 H 96 96 Respiratory Rate 16 Blood Pressure Pulse Oximetry 96 Oxygen Delivery Mechanical Ventilation Fraction of Inspired Oxygen 40 05/17/24 06:00 05/17/24 08:00 05/17/24 08:00 Temperature 98.6 F 98.6 F Pulse Rate 96 100 Respiratory Rate 16 17 Blood Pressure 115/92 H 127/91 H Pulse Oximetry 95 95 95 Oxygen Delivery Mechanical Ventilation Fraction of Inspired Oxygen 40 05/17/24 08:00 05/17/24 08:00 05/17/24 08:00 Temperature Pulse Rate 101 H 100 Respiratory Rate 18 Blood Pressure Pulse Oximetry Oxygen Delivery Fraction of Inspired Oxygen 40 05/17/24 08:01 05/17/24 09:00 05/17/24 10:00 Temperature Pulse Rate 104 H 103 H 105 H Respiratory Rate 18 16 Blood Pressure Pulse Oximetry 96 Oxygen Delivery Mechanical Ventilation Fraction of Inspired Oxygen 40 05/17/24 10:00 05/17/24 10:00 05/17/24 10:03 Temperature 98.9 F Pulse Rate 99 99 98 Respiratory Rate 16 Blood Pressure 134/111 H Pulse Oximetry 96 Oxygen Delivery Fraction of Inspired Oxygen 05/17/24 12:00 05/17/24 12:00 05/17/24 12:00 Temperature 98.8 F Pulse Rate 99 Respiratory Rate 16 Blood Pressure 126/103 H Pulse Oximetry 96 96 Oxygen Delivery Mechanical Ventilation Fraction of Inspired Oxygen 40 40 05/17/24 12:00 05/17/24 12:15 05/17/24 14:00 Temperature 98.9 F Pulse Rate 97 109 H 112 H Respiratory Rate 25 H Blood Pressure 144/104 H Pulse Oximetry 96 93 Oxygen Delivery Mechanical Ventilation Fraction of Inspired Oxygen 40 05/17/24 14:00 05/17/24 15:36 Temperature Pulse Rate 112 H 106 H Respiratory Rate 16 Blood Pressure Pulse Oximetry Oxygen Delivery Fraction of Inspired Oxygen Intake/Output Intake/Output: Intake & Output 05/14/24 05/15/24 05/16/24 05/17/24 23:59 23:59 23:59 23:59 Intake Total 1238.3 3361.3 2728.6 1028.5 Output Total 1425 3900 450 Balance 1238.3 1936.3 -1171.4 578.5 Meds/Results Medications: Active Medications Generic Name Dose Route Start Last Admin Trade Name Freq PRN Reason Stop Dose Admin Acetaminophen 650 mg 05/14/24 18:25 Acetaminophen Elixir 325 Mg/10.15 Ml Udc PO Q6H PRN Mild Pain (1-3) or Fever Dextrose 12.5 gm 05/15/24 19:27 Dextrose 50% 25 Gm/50 Ml Syringe IV PUSH PRN PRN Hypoglycemia Protocol Glucagon 1 mg 05/15/24 19:27 Glucagon For Inj 1 Mg Vial IM PRN PRN Hypoglycemia Protocol Glucose 15 gm 05/15/24 19:27 Glucose Oral Gel 15 Gm Of Glucse In 37.5 Gm Tube PO PRN PRN Hypoglycemia Protocol Heparin Sodium (Porcine) 6,500 units 05/14/24 17:17 05/16/24 21:26 Heparin Sodium 5,000 Units/Ml Vial IV PUSH 6,500 units PRN PRN Administration aPTT less than 55 seconds Heparin Sodium (Porcine) 3,500 units 05/14/24 17:17 Heparin Sodium 5,000 Units/Ml Vial IV PUSH PRN PRN aPTT 55 - 70 seconds Heparin Sodium/Dextrose 25,000 units in 250 mls @ 6 mls/hr 05/14/24 17:20 05/17/24 13:05 Heparin Sodium/D5w 100 Units/Ml IV CONT 600 units/hr .Q24H DAKSHA 6 mls/hr Titration Protocol 600 UNITS/HR Doxycycline Hyclate 100 mg in 100 mls @ 100 mls/hr 05/14/24 19:00 05/17/24 06:02 Vibramycin 100 Mg/Ns 100 Ml IVPB 05/19/24 18:59 100 mls/hr Q12H DAKSHA Administration Propofol 100 mls @ 0 mls/hr 05/14/24 21:00 05/17/24 09:00 Diprivan IV CONT 0 mcg/kg/min .Q0M DAKSHA 0 mls/hr Titration Protocol Cefepime HCl 2 gm in 50 mls @ 100 mls/hr 05/15/24 06:00 05/17/24 15:28 Maxipime 2 Gm/Ns 50 Ml IVPB 100 mls/hr Q8HR DAKSHA Administration Dextrose 1,000 mls @ 100 mls/hr 05/15/24 19:27 Dextrose 5% 1,000 Ml IVPB PRN PRN Hypoglycemia Protocol Ipratropium Anderson 0.5 mg 05/15/24 14:00 05/17/24 15:35 Ipratropium Br 0.02% Inh Soln 0.5 Mg/2.5 Ml Vial INHALATION 0.5 mg Q6HRT DAKSHA Administration Levalbuterol HCl 0.63 mg 05/15/24 14:00 05/17/24 15:35 Levalbuterol Neb 1.25 Mg/3 Ml INHALATION 0.63 mg Q6HRT DAKSHA Administration Metoprolol Tartrate 2.5 mg 05/14/24 19:49 Metoprolol Tartrate Inj 5 Mg/5 Ml Vial IV PUSH Q3H PRN persistent tachycardia, >120 Metoprolol Tartrate 75 mg 05/16/24 21:00 05/17/24 10:03 Metoprolol Tartrate 25 Mg Tablet PO 75 mg Q12HR DAKSHA Administration Multi-Ingred Cream/Lotion/Oil/Oint 1 applic 05/14/24 21:00 05/17/24 10:03 Mineral Oil/White Petrolatum Ointment EACH EYE 1 applic Q12HR DAKSHA Administration Pantoprazole Sodium 40 mg 05/15/24 09:00 05/17/24 10:03 Pantoprazole Sodium Iv 40 Mg Vial IV PUSH 40 mg QAM DAKSHA Administration Polyethylene Glycol 17 gm 05/17/24 10:30 05/17/24 11:04 Polyethylene Glycol 3350 17 Gm Powd.Pack PO 17 gm QAM DAKSHA Administration Senna/Docusate Sodium 1 tab 05/17/24 10:35 05/17/24 11:04 Senna/Docusate Sodium Tablet PO 1 tab DAILY DAKSHA Administration Sodium Chloride 10 ml 05/14/24 22:00 05/17/24 15:29 Central Line Flush IV PUSH 10 ml Q8HR DAKSHA Administration Sodium Chloride 20 ml 05/14/24 19:36 05/16/24 20:55 Central Line Flush IV PUSH 20 ml PRN PRN Administration after blood draws Radiology Results: ITS Impressions Abdomen/Pelvis CT 05/14/24 13:28 IMPRESSION: 1. Pulmonary edema. 2. Small pleural effusions. 3. Small volume of ascites. Head CT 05/14/24 15:43 IMPRESSION: 1. 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 2. Small lateral and third ventricles, which is a change from the prior exam. Shunt catheter unchanged in position. Chest CTA 05/14/24 15:49 IMPRESSION: 1. No evident pulmonary embolism. Sensitivity decreased in the segmental pulmonary arteries and nondiagnostic in many of the smaller subsegmental pulmonary arteries particularly in the lung bases due to combination of suboptimal contrast opacification, respiratory motion and streak artifact. 2. Small to moderate-sized bilateral pleural effusions with dependent compressive atelectasis. Difficult to exclude superimposed pneumonia although suspicion is low. 3. Cardiomegaly. 4. 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 Nasogastric tube in stomach. 2. Cardiomegaly. 3. Retrocardiac opacity left lower lung zone which could represent persistent small pleural effusion, atelectasis or pneumonia. Venous Doppler Study 05/15/24 12:29 IMPRESSION: 1. No deep venous thrombosis in either lower limb. Chest X-Ray 05/17/24 07:40 Impression: Retrocardiac consolidation could reflect atelectasis/edema versus pneumonia. Minimal left pleural effusion. Interval improvement in haziness at the right lung base. Support tubes, as above. Labs Labs: Laboratory Results - last 24 hr 05/15/24 05/16/24 05/16/24 10:52 17:54 20:36 WBC RBC Hgb Hct MCV MCH MCHC RDW Plt Count MPV Immature Gran % (Auto) Neut % (Auto) Lymph % (Auto) [place] % (Auto) Eos % (Auto) Baso % (Auto) Lymph # (Auto) [place] # (Auto) Eos # (Auto) Baso # (Auto) Abs Immat Gran (auto) Absolute Neuts (auto) Absolute Nucleated RBC Nucleated RBC % APTT 48.3 H Puncture Site ABG pH ABG pCO2 ABG pO2 ABG PO2/FiO2 Ratio ABG HCO3 ABG O2 Saturation ABG O2 Content ABG Base Excess A-a Gradient Oxyhemoglobin Carboxyhemoglobin Methemoglobin Reduced Hemoglobin Total Hemoglobin O2 Delivery Device O2 Liters/Min Minute Volume Vent Rate Vent Mode FiO2 Tidal Volume PEEP Peak Inspir Pressure Pressure Support Sodium 131 L Potassium Chloride Carbon Dioxide Anion Gap BUN Creatinine Estim Creat Clear Calc Estimated GFR Glucose POC Capillary Glucose 95 Calcium Phosphorus Magnesium Total Bilirubin AST ALT Alkaline Phosphatase Total Protein Albumin Triglycerides 164 H [place]/Lambda Ratio 1.07 Free [place] Light Chains 7.7 Free Lambda Light Chain 7.2 05/17/24 05/17/24 05/17/24 00:18 03:54 04:46 WBC 11.8 H RBC 3.94 L Hgb 13.0 L Hct 38.2 L MCV 97.0 MCH 33.0 MCHC 34.0 RDW 14.3 Plt Count 208 MPV 11.1 H Immature Gran % (Auto) 0.7 H Neut % (Auto) 69.3 Lymph % (Auto) 13.5 L [place] % (Auto) 14.3 H Eos % (Auto) 1.6 Baso % (Auto) 0.6 Lymph # (Auto) 1.59 [place] # (Auto) 1.7 H Eos # (Auto) 0.2 Baso # (Auto) 0.1 Abs Immat Gran (auto) 0.08 H Absolute Neuts (auto) 8.1 H Absolute Nucleated RBC 0.000 Nucleated RBC % 0.0 APTT 138.9 H Puncture Site Right radial ABG pH 7.443 ABG pCO2 40.5 ABG pO2 94.7 ABG PO2/FiO2 Ratio 2.37 ABG HCO3 27.1 H ABG O2 Saturation 97.5 ABG O2 Content 18.6 ABG Base Excess 2.8 A-a Gradient 143.9 Oxyhemoglobin 96.6 Carboxyhemoglobin 0.6 Methemoglobin 0.1 Reduced Hemoglobin 2.7 Total Hemoglobin 13.6 O2 Delivery Device Ventilator O2 Liters/Min Not Reportable Minute Volume Not Reportable Vent Rate 16 Vent Mode Cmv FiO2 40 Tidal Volume 450 PEEP 5 Peak Inspir Pressure Not Reportable Pressure Support Not Reportable Sodium 132 L Potassium 3.6 Chloride 96 L Carbon Dioxide 29 Anion Gap 7 BUN 15 Creatinine 0.56 L Estim Creat Clear Calc 157 Estimated GFR > 60 Glucose 108 POC Capillary Glucose 116 H Calcium 8.1 L Phosphorus 3.2 Magnesium 1.8 Total Bilirubin 0.6 AST 57 ALT 57 H Alkaline Phosphatase 75 Total Protein 6.0 L Albumin 2.9 L Triglycerides 171 H [place]/Lambda Ratio Free [place] Light Chains Free Lambda Light Chain 05/17/24 05/17/24 05/17/24 06:08 12:09 12:29 WBC RBC Hgb Hct MCV MCH MCHC RDW Plt Count MPV Immature Gran % (Auto) Neut % (Auto) Lymph % (Auto) [place] % (Auto) Eos % (Auto) Baso % (Auto) Lymph # (Auto) [place] # (Auto) Eos # (Auto) Baso # (Auto) Abs Immat Gran (auto) Absolute Neuts (auto) Absolute Nucleated RBC Nucleated RBC % APTT 116.6 H Puncture Site ABG pH ABG pCO2 ABG pO2 ABG PO2/FiO2 Ratio ABG HCO3 ABG O2 Saturation ABG O2 Content ABG Base Excess A-a Gradient Oxyhemoglobin Carboxyhemoglobin Methemoglobin Reduced Hemoglobin Total Hemoglobin O2 Delivery Device O2 Liters/Min Minute Volume Vent Rate Vent Mode FiO2 Tidal Volume PEEP Peak Inspir Pressure Pressure Support Sodium Potassium Chloride Carbon Dioxide Anion Gap BUN Creatinine Estim Creat Clear Calc Estimated GFR Glucose POC Capillary Glucose 112 H 111 H Calcium Phosphorus Magnesium Total Bilirubin AST ALT Alkaline Phosphatase Total Protein Albumin Triglycerides [place]/Lambda Ratio Free [place] Light Chains Free Lambda Light Chain 05/17/24 13:20 WBC RBC Hgb Hct MCV MCH MCHC RDW Plt Count MPV Immature Gran % (Auto) Neut % (Auto) Lymph % (Auto) [place] % (Auto) Eos % (Auto) Baso % (Auto) Lymph # (Auto) [place] # (Auto) Eos # (Auto) Baso # (Auto) Abs Immat Gran (auto) Absolute Neuts (auto) Absolute Nucleated RBC Nucleated RBC % APTT Puncture Site Right radial ABG pH 7.477 H ABG pCO2 34.4 L ABG pO2 98.2 ABG PO2/FiO2 Ratio 2.45 ABG HCO3 24.9 ABG O2 Saturation 97.9 ABG O2 Content 18.8 ABG Base Excess 1.8 A-a Gradient 147.4 Oxyhemoglobin 97.2 Carboxyhemoglobin Methemoglobin Reduced Hemoglobin Total Hemoglobin 13.7 O2 Delivery Device Ventilator O2 Liters/Min Not Reportable Minute Volume Not Reportable Vent Rate Not Reportable Vent Mode Spontaneous FiO2 40 Tidal Volume Not Reportable PEEP 5 Peak Inspir Pressure 8 Pressure Support Not Reportable Sodium Potassium Chloride Carbon Dioxide Anion Gap BUN Creatinine Estim Creat Clear Calc Estimated GFR Glucose POC Capillary Glucose Calcium Phosphorus Magnesium Total Bilirubin AST ALT Alkaline Phosphatase Total Protein Albumin Triglycerides [place]/Lambda Ratio Free [place] Light Chains Free Lambda Light Chain Quality VTE Prophylaxis VTE prophylaxis: pharmacologic ordered Hospitalist MIPS Advance Care Plan I have confirmed that the patient's Advanced Care Plan is present, code status is documented, or surrogate decision maker is listed in patient medical record.: Yes Medication Reconciliation I have utilized all available resources to obtain, update and review the patient s current medications (includes all prescriptions, OTC, herbals, cannabis, and nutritional supplements).: Yes
--- NOTE | 2024-05-17 17:29 | P.CONCA_ITS ---
Assessment and Plan Assessment and plan (1) Atrial fibrillation with rapid ventricular response: Code(s): I48.91 - Unspecified atrial fibrillation Status: Acute (2) Systolic heart failure: Code(s): I50.20 - Unspecified systolic (congestive) heart failure Status: Acute (3) Mitral regurgitation: Code(s): I34.0 - Nonrheumatic mitral (valve) insufficiency Status: Acute (4) Pulmonary hypertension: Code(s): I27.20 - Pulmonary hypertension, unspecified Status: Acute Plan 48-year-old man with traumatic brain injury, brain aneurysm status post surgery (at age 12), hypertension, ulcerative colitis, and seizures initially presented with worsening shortness of breath and generalized weakness Acute chronic systolic heart failure -would recommend to continue Lasix 40 mg IV daily when safe from sodium perspective -once the sodium has stabilized, would recommend that patient be Entresto instead of lisinopril Paroxysmal atrial fibrillation -would cover his heparin drip to Eliquis 5 mg p.o. b.i.d. -continue Lopressor 150 mg q.12 hours for now for rate control -given the severity of his left atrial dilation, most likely will need outpatient EP referral for ablation Moderate to severe mitral regurgitation -will re-evaluate once he is euvolemic and on guideline directed medical therapy Pulmonary hypertension -most likely secondary to left-sided heart disease and will re-evaluate once he is euvolemic and has been trialed on guideline directed medical therapy History of Present Illness History of Present Illness Consult date/time: 05/17/24 17:29 Requesting physician: Willis Yao MD Consult reason: Other Reason For Visit: Afib w RVR/CHF/Hyponatremia/Acute Change of Mental Narrative: 48-year-old man with traumatic brain injury, brain aneurysm status post surgery (at age 12), hypertension, ulcerative colitis, and seizures initially presented with worsening shortness of breath and generalized weakness. There was associated lower extremity swelling and upon presentation to the emergency room he was also found to have paroxysmal atrial fibrillation with rapid ventricular rate and upon starting diltiazem drip, patient started to have respiratory distress leading to intubation. Currently he states that his shortness of breath has improved as well as the lower extremity swelling. He denies any chest discomfort when he is performing physical activity outside of the hospital. Denies any syncopal events. The atrial fibrillation is new to him. Review of Systems 2 Cardiovascular: Cardiovascular: Reports as per HPI Respiratory: Respiratory: Reports as per HPI [facility] Past Medical History Medical History (Updated 05/17/24 @ 17:39 by Jason Modi MD) Frequent falls Atrial fibrillation Hyponatremia History of seizure Hx of traumatic brain injury Heart murmur Pulmonary nodule Osteoporosis Brain aneurysm Ulcerative colitis Hypertension Surgical History Surgical History CRYST[employer] (ventriculoperitoneal) shunt status H/O left knee surgery Hx of tracheostomy Hx of colonoscopy Hx of brain surgery S/P clamping of cerebral aneurysm Family History Family History Father Hypertension Family history of coronary artery disease Mother Hypertension Family history of coronary artery disease Grandparent Carcinoma of colon Diabetes mellitus Social History Social History Social History: The patient is currently living with his grandmother and helps to take care of her. The patient walks with a walker typically but has been in a wheelchair recently. Lifelong nonsmoker. He denies any alcohol marijuana or illicit drugs. The patient denies being on disability but is unemployed at this time Code status full code Smoking status: Never smoker Alcohol intake: unknown Substance use: unknown Substance use type: does not use Lack of Transportation: No Lack of Food: Never True Current Housing: I Have Housing Concerned About Future Housing: No Difficulty Paying Gas/Electric Bills: No Difficulty Paying for Meds: No Currently Unemployed: No Education: Trade/Vocational Certificate Difficulty w/ Childcare or Family Care: No Living arrangements: with family Gender identity (if verbalized by the patient): Male Spiritual care concerns: No Meds Home Medications and Allergies Home Medications ?Medication ?Instructions ?Recorded ?Confirmed ?Type adalimumab 40 mg/0.8 mL 40 mg subcut Q14D 03/19/19 11/03/22 History subcutaneous pen kit (Humira Pen) alendronate 70 mg tablet 70 mg PO WEEKLY 03/19/19 05/14/24 History folic acid 1 mg tablet 1 mg PO DAILY 03/19/19 05/14/24 History lisinopril 20 mg tablet 20 mg PO BID 03/19/19 05/14/24 History calcium carbonate (Calcium 500) 500 mg PO BID 03/25/19 11/03/22 History glucosamine-chondroitin 250 mg-200 2 tablet PO DAILY 03/25/19 11/03/22 History mg tablet (Osteo Bi-Flex) multivitamin,[id number] 1 tablet PO DAILY 03/25/19 11/03/22 History (Complete Multivitamin tablet) azathioprine 50 mg tablet (Imuran) 100 mg PO DAILY 06/06/20 05/14/24 History sulfasalazine 500 mg tablet 500 mg PO QID 11/03/22 05/14/24 History metoprolol succinate 50 mg 50 mg PO DAILY 05/14/24 05/14/24 History tablet,extended release 24 hr Allergies Allergy/AdvReac Type Severity Reaction Status Date / Time No Known Allergies Allergy Verified 05/14/24 22:41 Vital Signs Vital Signs - 24 hr 05/16/24 17:30 05/16/24 17:30 05/16/24 17:35 Temperature Pulse Rate 136 H 150 H Respiratory Rate 16 16 Blood Pressure Pulse Oximetry Oxygen Delivery Oxygen Flow Rate Fraction of Inspired Oxygen 40 05/16/24 17:40 05/16/24 17:48 05/16/24 18:00 Temperature Pulse Rate 125 H 100 108 H Respiratory Rate 16 Blood Pressure Pulse Oximetry 99 Oxygen Delivery Mechanical Ventilation Oxygen Flow Rate Fraction of Inspired Oxygen 40 05/16/24 18:00 05/16/24 18:00 05/16/24 19:19 Temperature 36.7 C Pulse Rate 107 H 106 H 103 H Respiratory Rate 17 17 18 Blood Pressure 132/104 H Pulse Oximetry 96 Oxygen Delivery Oxygen Flow Rate Fraction of Inspired Oxygen 05/16/24 20:00 05/16/24 20:00 05/16/24 20:00 Temperature Pulse Rate 107 H 106 H Respiratory Rate 16 Blood Pressure Pulse Oximetry Oxygen Delivery Oxygen Flow Rate Fraction of Inspired Oxygen 40 05/16/24 20:00 05/16/24 20:54 05/16/24 20:58 Temperature 37.0 C Pulse Rate 107 H 105 H 103 H Respiratory Rate 16 Blood Pressure 129/100 H Pulse Oximetry 96 97 Oxygen Delivery Mechanical Ventilation Oxygen Flow Rate Fraction of Inspired Oxygen 40 05/16/24 20:58 05/16/24 21:00 05/16/24 21:00 Temperature Pulse Rate 103 H 106 H 106 H Respiratory Rate 16 16 16 Blood Pressure Pulse Oximetry 97 Oxygen Delivery Mechanical Ventilation Oxygen Flow Rate Fraction of Inspired Oxygen 40 05/16/24 21:25 05/16/24 22:00 05/16/24 22:00 Temperature Pulse Rate 103 H 105 H 105 H Respiratory Rate 16 16 Blood Pressure Pulse Oximetry Oxygen Delivery Oxygen Flow Rate Fraction of Inspired Oxygen 05/16/24 22:00 05/16/24 22:42 05/16/24 22:42 Temperature 36.8 C Pulse Rate 105 H 103 H 103 H Respiratory Rate 16 16 16 Blood Pressure 123/93 H Pulse Oximetry 95 Oxygen Delivery Oxygen Flow Rate Fraction of Inspired Oxygen 05/17/24 00:00 05/17/24 00:00 05/17/24 00:00 Temperature 36.8 C Pulse Rate 103 H 98 Respiratory Rate 16 Blood Pressure 112/91 H Pulse Oximetry 95 Oxygen Delivery Oxygen Flow Rate Fraction of Inspired Oxygen 40 05/17/24 00:00 05/17/24 00:00 05/17/24 00:47 Temperature Pulse Rate 98 98 103 H Respiratory Rate 16 16 Blood Pressure Pulse Oximetry 95 95 Oxygen Delivery Mechanical Ventilation Mechanical Ventilation Oxygen Flow Rate Fraction of Inspired Oxygen 40 40 05/17/24 01:57 05/17/24 02:00 05/17/24 02:00 Temperature 36.8 C Pulse Rate 106 H 104 H 104 H Respiratory Rate 16 16 Blood Pressure 119/93 H Pulse Oximetry 95 Oxygen Delivery Oxygen Flow Rate Fraction of Inspired Oxygen 05/17/24 02:00 05/17/24 02:07 05/17/24 03:59 Temperature Pulse Rate 104 H 106 H 103 H Respiratory Rate 16 16 Blood Pressure Pulse Oximetry 95 Oxygen Delivery Mechanical Ventilation Oxygen Flow Rate Fraction of Inspired Oxygen 40 05/17/24 04:00 05/17/24 04:00 05/17/24 04:00 Temperature Pulse Rate 102 H 105 H Respiratory Rate 18 Blood Pressure Pulse Oximetry 96 Oxygen Delivery Mechanical Ventilation Oxygen Flow Rate Fraction of Inspired Oxygen 40 40 05/17/24 04:00 05/17/24 04:51 05/17/24 05:04 Temperature 36.7 C Pulse Rate 102 H 93 93 Respiratory Rate 18 16 16 Blood Pressure 128/95 H Pulse Oximetry 96 Oxygen Delivery Oxygen Flow Rate Fraction of Inspired Oxygen 05/17/24 05:20 05/17/24 06:00 05/17/24 06:00 Temperature Pulse Rate 104 H 96 96 Respiratory Rate 16 Blood Pressure Pulse Oximetry 96 Oxygen Delivery Mechanical Ventilation Oxygen Flow Rate Fraction of Inspired Oxygen 40 05/17/24 06:00 05/17/24 08:00 05/17/24 08:00 Temperature 37.0 C 37.0 C Pulse Rate 96 100 Respiratory Rate 16 17 Blood Pressure 115/92 H 127/91 H Pulse Oximetry 95 95 95 Oxygen Delivery Mechanical Ventilation Oxygen Flow Rate Fraction of Inspired Oxygen 40 05/17/24 08:00 05/17/24 08:00 05/17/24 08:00 Temperature Pulse Rate 101 H 100 Respiratory Rate 18 Blood Pressure Pulse Oximetry Oxygen Delivery Oxygen Flow Rate Fraction of Inspired Oxygen 40 05/17/24 08:01 05/17/24 09:00 05/17/24 10:00 Temperature Pulse Rate 104 H 103 H 105 H Respiratory Rate 18 16 Blood Pressure Pulse Oximetry 96 Oxygen Delivery Mechanical Ventilation Oxygen Flow Rate Fraction of Inspired Oxygen 40 05/17/24 10:00 05/17/24 10:00 05/17/24 10:03 Temperature 37.2 C Pulse Rate 99 99 98 Respiratory Rate 16 Blood Pressure 134/111 H Pulse Oximetry 96 Oxygen Delivery Oxygen Flow Rate Fraction of Inspired Oxygen 05/17/24 12:00 05/17/24 12:00 05/17/24 12:00 Temperature 37.1 C Pulse Rate 99 Respiratory Rate 16 Blood Pressure 126/103 H Pulse Oximetry 96 96 Oxygen Delivery Mechanical Ventilation Oxygen Flow Rate Fraction of Inspired Oxygen 40 40 05/17/24 12:00 05/17/24 12:15 05/17/24 14:00 Temperature 37.2 C Pulse Rate 97 109 H 112 H Respiratory Rate 25 H Blood Pressure 144/104 H Pulse Oximetry 96 93 Oxygen Delivery Mechanical Ventilation Oxygen Flow Rate Fraction of Inspired Oxygen 40 05/17/24 14:00 05/17/24 15:36 05/17/24 16:00 Temperature 37.3 C Pulse Rate 112 H 106 H 117 H Respiratory Rate 16 25 H Blood Pressure 137/111 H Pulse Oximetry 91 Oxygen Delivery Oxygen Flow Rate Fraction of Inspired Oxygen 05/17/24 16:00 Temperature Pulse Rate Respiratory Rate Blood Pressure Pulse Oximetry 87 L Oxygen Delivery Oxygen Flow Rate 3 Fraction of Inspired Oxygen Exam 2 Const: General: comfortable HENMT: Mouth: Yes moist mucous membranes Eyes: EOM: EOMs intact bilaterally Neck: Neck: no JVD Resp: Effort & Inspection: normal respiratory effort Auscultation: rales Cardio: Rate: tachycardic Rhythm: abnormal rhythm Heart sounds: Murmur heart sound present Extrem: General: no pedal edema Results Labs and Meds 05/17/24 03:54 05/17/24 03:54 Lab results: Cardiac Enzymes 05/17/24 Range/Units 03:54 AST 57 (17-59) U/L Coagulation 05/16/24 05/17/24 05/17/24 Range/Units 20:36 03:54 12:29 APTT 48.3 H 138.9 H 116.6 H (22.3-36.8) Seconds Lipids 05/16/24 05/17/24 Range/Units 20:36 03:54 Triglycerides 164 H 171 H (<150) mg/dL CBC 05/17/24 Range/Units 03:54 WBC 11.8 H (4.5-10.0) K/mm3 RBC 3.94 L (4.6-6.20) M/mm3 Hgb 13.0 L (14.0-18.0) g/dL Hct 38.2 L (42.0-52.0) % Plt Count 208 (150-375) k/mm3 Lymph # (Auto) 1.59 (0.9-3.2) K/mm3 [place] # (Auto) 1.7 H (0.1-0.6) K/mm3 Eos # (Auto) 0.2 (0-0.3) K/mm3 Baso # (Auto) 0.1 (0.0-0.1) K/mm3 Comprehensive Metabolic Panel 05/16/24 05/17/24 Range/Units 20:36 03:54 Sodium 131 L 132 L (137-145) mmol/L Potassium 3.6 (3.4-5.0) mmol/L Chloride 96 L (98-107) mmol/L Carbon Dioxide 29 (22-30) mmol/L BUN 15 (9-20) mg/dL Creatinine 0.56 L (0.7-1.3) mg/dL Glucose 108 (65-110) mg/dL Calcium 8.1 L (8.4-10.2) mg/dL AST 57 (17-59) U/L ALT 57 H (6-50) U/L Alkaline Phosphatase 75 (38-126) U/L Total Protein 6.0 L (6.3-8.2) g/dL Albumin 2.9 L (3.5-5.1) g/dL Intake and Output 05/17/24 05/17/24 05/17/24 07:59 15:59 23:59 Intake Total 933.0 95.5 Output Total 450 Balance 483.0 95.5 Intake: IV 241.0 95.5 Heparin Sod/D5w 100 Units/ml 25 78.3 54.7 ,000 units In 250 ml @ 1,000 UNITS/HR 10 mls/hr IV CONT . Q24H DAKSHA Rx#:[id number] Propofol IV Emulsion 100 ml @ 112.7 40.8 30 MCG/KG/MIN 16.29 mls/hr IV CONT .Q6H9M DAKSHA Rx#:[id number] Cefepime 2 gm/Ns 50 ml 2 gm In 50 50 ml @ 100 mls/hr IVPB Q8HR DAKSHA Rx#:[id number] Tube Feeding 572 Tube Flush 120 Output: Catheter Urine 450 Urethral Catheter 450 Patient Weight 05/17/24 23:59 Weight 91.8 kg
[2024-05-17] MEDS: dexAMETHasone SOD PHOS INJ 10 MG/ML 1 ML VIAL IV PUSH (18:07)
[2024-05-17 18:23] LABS: Glucose Point of Care 100 mg/dl (65-105)
[2024-05-17] MEDS: METOPROLOL TARTRATE INJ 5 MG/5 ML VIAL 2.5 MG IV PUSH (19:03)
[2024-05-17 19:53] LABS: Partial Thromboplastin Time 85.3 Seconds (22.3-36.8)
[2024-05-17] MEDS: HEPARIN SOD/D5W 100 UNITS/ML 25,000 UNITS/250 ML BAG 6 UNITS IV CONT (20:39)
[2024-05-17] MEDS: ACETAMINOPHEN ELIXIR 325 MG/10.15 ML UDC 650 MG PO (20:47)
[2024-05-17 21:13] LABS: Albumin 2.8 g/dL (3.8-4.8); Alpha 1 Globulin 0.3 g/dL (0.2-0.3); Alpha 2 Globulin 0.5 g/dL (0.5-0.9); Beta 1 Globulin 0.3 g/dL (0.4-0.6); Gamma Globulin 0.6 g/dL (0.8-1.7)
[2024-05-18] VITALS (23 sets, daily range): BP systolic 122–156; BP diastolic 91–115; PULSE 90–187; RESP 16–25; TEMP 36.8–37.5; O2SAT 93–100; BMI 29.5
[2024-05-18] MEDS: LEVALBUTEROL NEB 1.25 MG/3 ML 0.63 MG INHALATION ×3 (02:01→20:06)
[2024-05-18] MEDS: IPRATROPIUM BR 0.02% INH SOLN 0.5 MG/2.5 ML VIAL INHALATION ×3 (02:01→20:06)
[2024-05-18 02:56] LABS: Hematocrit 41.4 % (42.0-52.0); Mean Corpuscular HGB Conc 33.8 g/dl (32-36); Mean Corpuscular Hemoglobin 33.3 pg (26-34); Mean Corpuscular Volume 98.3 fl (80-100); Mean Platelet Volume 10.7 fl (7.4-10.4); Platelet Count Result 231 k/mm3 (150-375); Red Blood Count 4.21 M/mm3 (4.6-6.20); Red Cell Distribution Width 14.2 % (11.5-14.5); White Blood Count 10.9 K/mm3 (4.5-10.0)
[2024-05-18 03:07] LABS: Alanine Aminotransferase 63 U/L (6-50); Albumin Level 3.5 g/dL (3.5-5.1); Alkaline Phosphatase 82 U/L (38-126); Anion Gap 6 mmol/L (4-12); Aspartate Amino Transferase 63 U/L (17-59); Bilirubin,Total 1.3 mg/dL (0.2-1.3); Blood Urea Nitrogen 13 mg/dL (9-20); Calcium 8.4 mg/dL (8.4-10.2); Carbon Dioxide 30 mmol/L (22-30); Chloride 97 mmol/L (98-107); Estimated CRCL calculation 147 ml/min; Estimated Glomerular Filt Rate > 60; Glucose 122 mg/dL (65-110); Magnesium 1.7 mg/dL (1.6-2.3); Potassium 4.6 mmol/L (3.4-5.0); Sodium 133 mmol/L (137-145)
[2024-05-18 03:34] LABS: Lymphocytes Absolute Manual 0.43 K/mm3 (1.1-4.5); Monocytes Absolute Manual 0.43 K/mm3 (0.1-0.90); Monocytes Percent Manual 4 % (3-9); Neutrophils Percent Manual 92 % (46-73); Platelet Estimate Adequate (Adequate); Total Cells Counted 100
[2024-05-18 03:35] LABS: Schistocytes None Seen
[2024-05-18 03:37] LABS: Band Neutrophils Percent 0 % (0-6); Neutrophils Absolute Manual 10.02 K/mm3 (1.3-6.7)
[2024-05-18 04:22] LABS: Partial Thromboplastin Time 39.2 Seconds (22.3-36.8)
[2024-05-18] MEDS: HEPARIN SODIUM 5,000 UNITS/ML VIAL 6500 UNITS IV PUSH ×2 (04:29→19:16)
[2024-05-18] MEDS: DOXYCYCLINE 100 MG/NS 100 ML 100 MG/100 ML BAG IVPB ×2 (05:15→17:34)
[2024-05-18] MEDS: CEFEPIME 2 GM/NS 50 ML 2 GM/50 ML BAG IVPB ×3 (05:15→21:41)
[2024-05-18] MEDS: CENTRAL LINE FLUSH 10 ML IV PUSH ×3 (06:36→21:42)
[2024-05-18] MEDS: METOPROLOL TARTRATE 25 MG TABLET 75 MG PO (09:42)
[2024-05-18] MEDS: PANTOPRAZOLE SODIUM IV 40 MG VIAL IV PUSH (09:42)
[2024-05-18] MEDS: FUROSEMIDE INJ 40 MG/4 ML VIAL IV PUSH (09:47)
--- NOTE | 2024-05-18 09:55 | P.PNNP_ITS ---
Subjective Date/time seen: 05/18/24 09:55 Objective Data Vital Signs Vital Signs: Vital Signs Temp Pulse Resp BP Pulse Ox O2 Del Method O2 Flow Rate 05/18/24 09:42 128 H 94 Room Air 05/18/24 08:49 100 20 05/18/24 08:20 99 20 05/18/24 08:20 98 Nasal Cannula 1 05/18/24 08:00 98 Room Air 05/18/24 08:00 98.8 F 102 H 19 156/114 H 98 05/18/24 06:00 94 20 148/91 H 100 05/18/24 06:00 90 05/18/24 04:00 99 05/18/24 04:00 98.3 F 99 18 150/95 H 100 05/18/24 03:24 96 18 100 Nasal Cannula 3 05/18/24 02:12 102 H 20 05/18/24 02:01 103 H 18 05/18/24 02:00 103 H 21 H 122/100 H 94 05/18/24 02:00 103 H 05/18/24 00:00 102 H 05/18/24 00:00 104 H 19 96 Nasal Cannula 3 05/18/24 00:00 98.7 F 104 H 19 137/97 H 96 05/17/24 22:00 111 H 20 134/103 H 96 05/17/24 22:00 111 H 05/17/24 20:59 129 H 23 H 05/17/24 20:45 128 H 23 H 05/17/24 20:45 95 Nasal Cannula 3 05/17/24 20:39 130 H 05/17/24 20:00 99.4 F 127 H 24 H 144/103 H 94 05/17/24 20:00 127 H 05/17/24 20:00 127 H 24 H 94 Nasal Cannula 3 05/17/24 18:13 93 Nasal Cannula 2 05/17/24 18:00 99.2 F 116 H 26 H 135/112 H 90 05/17/24 18:00 99.1 F 116 H 26 H 135/106 H 96 05/17/24 18:00 116 H 05/17/24 16:00 121 H 05/17/24 16:00 87 L 3 05/17/24 16:00 99.1 F 117 H 25 H 137/111 H 91 05/17/24 15:36 106 H 16 05/17/24 14:00 112 H 05/17/24 14:00 98.9 F 112 H 25 H 144/104 H 93 Intake/Output Intake/Output: Intake & Output 05/15/24 05/16/24 05/17/24 05/18/24 23:59 23:59 23:59 23:59 Intake Total 3361.3 2728.6 1503.9 265.9 Output Total 1425 3900 1300 1500 Balance 1936.3 -1171.4 203.9 -1234.1 Meds/Results Medications: Active Medications Generic Name Dose Route Start Last Admin Trade Name Freq PRN Reason Stop Dose Admin Acetaminophen 650 mg 05/14/24 18:25 05/17/24 20:47 Acetaminophen Elixir 325 Mg/10.15 Ml Udc PO 650 mg Q6H PRN Administration Mild Pain (1-3) or Fever Dextrose 12.5 gm 05/15/24 19:27 Dextrose 50% 25 Gm/50 Ml Syringe IV PUSH PRN PRN Hypoglycemia Protocol Glucagon 1 mg 05/15/24 19:27 Glucagon For Inj 1 Mg Vial IM PRN PRN Hypoglycemia Protocol Glucose 15 gm 05/15/24 19:27 Glucose Oral Gel 15 Gm Of Glucse In 37.5 Gm Tube PO PRN PRN Hypoglycemia Protocol Heparin Sodium (Porcine) 6,500 units 05/14/24 17:17 05/18/24 04:29 Heparin Sodium 5,000 Units/Ml Vial IV PUSH 6,500 units PRN PRN Administration aPTT less than 55 seconds Heparin Sodium (Porcine) 3,500 units 05/14/24 17:17 Heparin Sodium 5,000 Units/Ml Vial IV PUSH PRN PRN aPTT 55 - 70 seconds Heparin Sodium/Dextrose 25,000 units in 250 mls @ 7 mls/hr 05/14/24 17:20 05/18/24 12:08 Heparin Sodium/D5w 100 Units/Ml IV CONT 700 units/hr .Q24H DAKSHA 7 mls/hr Titration Protocol 700 UNITS/HR Doxycycline Hyclate 100 mg in 100 mls @ 100 mls/hr 05/14/24 19:00 05/18/24 06:15 Vibramycin 100 Mg/Ns 100 Ml IVPB 05/19/24 18:59 Infused Q12H DAKSHA Infusion Cefepime HCl 2 gm in 50 mls @ 100 mls/hr 05/15/24 06:00 05/18/24 05:45 Maxipime 2 Gm/Ns 50 Ml IVPB Infused Q8HR DAKSHA Infusion Dextrose 1,000 mls @ 100 mls/hr 05/15/24 19:27 Dextrose 5% 1,000 Ml IVPB PRN PRN Hypoglycemia Protocol Ipratropium [place] 0.5 mg 05/15/24 14:00 05/18/24 08:20 Ipratropium Br 0.02% Inh Soln 0.5 Mg/2.5 Ml Vial INHALATION 0.5 mg Q6HRT DAKSHA Administration Levalbuterol HCl 0.63 mg 05/15/24 14:00 05/18/24 08:20 Levalbuterol Neb 1.25 Mg/3 Ml INHALATION 0.63 mg Q6HRT DAKSHA Administration Metoprolol Tartrate 2.5 mg 05/14/24 19:49 05/17/24 19:03 Metoprolol Tartrate Inj 5 Mg/5 Ml Vial IV PUSH 2.5 mg Q3H PRN Administration persistent tachycardia, >120 Metoprolol Tartrate 75 mg 05/16/24 21:00 05/18/24 09:42 Metoprolol Tartrate 25 Mg Tablet PO 75 mg Q12HR DAKSHA Administration Multi-Ingred Cream/Lotion/Oil/Oint 1 applic 05/14/24 21:00 05/18/24 09:43 Mineral Oil/White Petrolatum Ointment EACH EYE Not Given Q12HR DAKSHA Pantoprazole Sodium 40 mg 05/15/24 09:00 05/18/24 09:42 Pantoprazole Sodium Iv 40 Mg Vial IV PUSH 40 mg QAM DAKSHA Administration Polyethylene Glycol 17 gm 05/18/24 08:04 Polyethylene Glycol 3350 17 Gm Powd.Pack PO QAM PRN COnstipation Senna/Docusate Sodium 1 tab 05/18/24 08:04 Senna/Docusate Sodium Tablet PO DAILY PRN Constipation Sodium Chloride 10 ml 05/14/24 22:00 05/18/24 06:36 Central Line Flush IV PUSH 10 ml Q8HR DAKSHA Administration Sodium Chloride 20 ml 05/14/24 19:36 05/16/24 20:55 Central Line Flush IV PUSH 20 ml PRN PRN Administration after blood draws Radiology Results: ITS Impressions Abdomen/Pelvis CT 05/14/24 13:28 IMPRESSION: 1. Pulmonary edema. 2. Small pleural effusions. 3. Small volume of ascites. Head CT 05/14/24 15:43 IMPRESSION: 1. 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 2. Small lateral and third ventricles, which is a change from the prior exam. Shunt catheter unchanged in position. Chest CTA 05/14/24 15:49 IMPRESSION: 1. No evident pulmonary embolism. Sensitivity decreased in the segmental pulmonary arteries and nondiagnostic in many of the smaller subsegmental pulmonary arteries particularly in the lung bases due to combination of suboptimal contrast opacification, respiratory motion and streak artifact. 2. Small to moderate-sized bilateral pleural effusions with dependent compressive atelectasis. Difficult to exclude superimposed pneumonia although suspicion is low. 3. Cardiomegaly. 4. 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 Nasogastric tube in stomach. 2. Cardiomegaly. 3. Retrocardiac opacity left lower lung zone which could represent persistent small pleural effusion, atelectasis or pneumonia. Venous Doppler Study 05/15/24 12:29 IMPRESSION: 1. No deep venous thrombosis in either lower limb. Chest X-Ray 05/18/24 06:20 Impression: Possible minimal central congestive change. Significant interval improvement in left lower lobe airspace disease since prior exam. NG tube in place. Labs Labs: Laboratory Tests 05/18/24 02:49 05/18/24 02:49 Calcium 8.4 Phosphorus 4.0 Magnesium 1.7 Total Bilirubin 1.3 AST 63 H ALT 63 H Alkaline Phosphatase 82 Total Protein 7.0 Albumin 3.5 Microbiology 05/15/24 08:34 Sputum Sputum Culture - Preliminary Pseudomonas aeruginosa
--- NOTE | 2024-05-18 11:19 | P.PNINT_ITS ---
Progress Note: A&P Assessment and Plan (1) Sepsis: Qualifiers: Sepsis type: sepsis due to unspecified organism Sepsis acute organ dysfunction status: with acute organ dysfunction Severe sepsis acute organ dysfunction type: encephalopathy Severe sepsis shock status: without septic shock Qualified Code(s): A41.9 - Sepsis, unspecified organism; R65.20 - Severe sepsis without septic shock; G93.41 - Metabolic encephalopathy Code(s): A41.9 - Sepsis, unspecified organism Status: Acute Assessment and Plan: Patient presented with shortness of breath, generalized weakness, acute altered mental status -tachycardia, elevated WBC count -chest CTA likely pneumonia, possible cellulitis of the right knee -continue cefepime, doxycycline, (05/14) -MRSA screen negative, discontinue vancomycin (05/16) -blood pressures have remained stable, patient not requiring pressors -05/14: Blood cultures: Primary cultures are negative -05/15: Sputum cultures are negative -05/15: Bilateral lower extremity venous Dopplers were negative for DVT bilaterally (2) Acute respiratory failure: Code(s): J96.00 - Acute respiratory failure, unspecified whether with hypoxia or hypercapnia Status: Acute Assessment and Plan: Acute respiratory failure could be multifactorial, inflammation RVR, seizures, chronic encephalomalacia, -05/14: intubated in the ER - /4 extubated Now on room air. Add incentive spirometry. PT OT consult Continue bronchodilators Lasix IV 05/14/2024 CTA chest: IMPRESSION: 1. No evident pulmonary embolism. Sensitivity decreased in the segmental pulmonary arteries and nondiagnostic in many of the smaller subsegmental pulmonary arteries particularly in the lung bases due to combination of suboptimal contrast opacification, respiratory motion and streak artifact. 2. Small to moderate-sized bilateral pleural effusions with dependent compressive atelectasis. Difficult to exclude superimposed pneumonia although suspicion is low. 3. Cardiomegaly. 4. 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 2. Small lateral and third ventricles, which is a change from the prior exam. Shunt catheter unchanged in position. (4) Pneumonia: Qualifiers: Pneumonia type: due to unspecified organism Laterality: bilateral Lung location: lower lobe of lung Qualified Code(s): J18.9 - Pneumonia, unspecified organism Code(s): J18.9 - Pneumonia, unspecified organism Status: Acute Assessment and Plan: Continue antibiotics as above Sputum cultures negative (5) Hyponatremia: Code(s): E87.1 - Hypo-osmolality and hyponatremia Status: Acute Assessment and Plan: Hyponatremia, multifactorial, could be related to pneumonia, SIADH, history of TBI, patient does have a history of hyponatremia in 2019, 2019, 2022 Improved. Now off of all fluids Monitor Nephrology following (6) Atrial fibrillation with rapid ventricular response: Code(s): I48.91 - Unspecified atrial fibrillation Status: Acute Assessment and Plan: Ventricular rate improved now. Continue metoprolol and heparin infusion.. Will switch to p.o. anticoagulation once p.o. intake is unsure Cardiology following 05/15/2024 echocardiogram Summary 1. Complete two-dimensional, color flow and Doppler transthoracic echocardiogram is performed. 2. Left ventricular chamber dimension is mildly enlarged. 3. Left ventricular systolic function is moderately reduced, estimated at 35- 40%. 4. There is mildly increased left ventricular wall thickness. 5. The left ventricular diastolic function is abnormal. 6. Left atrial chamber dimension is severely enlarged. 7. Right atrial chamber dimension is mildly enlarged. 8. There is moderate to severe mitral valve regurgitation. 9. There is mild tricuspid valve regurgitation. 10. Severe pulmonary hypertension, estimated pulmonary arterial systolic pressure is 72 mmHg. 11. There is mild pulmonic regurgitation. 12. Pleural effusion seen. (7) Acute brachiocephalic vein thrombosis: Code(s): I82.290 - Acute embolism and thrombosis of other thoracic veins Status: Acute Assessment and Plan: Patient's face was cyanotic, CTA chest showed complete occlusion of distal left brachiocephalic vein, -hospitalist discussed with Vascular surgery at [facility] ([facility]), Dr. Laird, the surgeon reviewed images, recommended heparin gtt only. No interventions indicated at this time. -continue heparin infusion -monitor coags (8) Mitral regurgitation: Code(s): I34.0 - Nonrheumatic mitral (valve) insufficiency Status: Acute Assessment and Plan: Lasix IV Plan DVT prophylaxis: Heparin infusion Stress ulcer prophylaxis: Protonix IV Nutrition: Speech consult for swallow evaluation Code Status: Full code Transfer out of ICU today Subjective Date/time seen: 05/18/24 Overnight events reviewed. Afebrile Patient was extubated yesterday after a successful weaning trial. Patient is now on room air. NG tube is in place. He has and p.o.. He is alert awake and denies any specific complaints. He states he is hungry and would like to eat food. Patient denies fever, chest pain, shortness of breath, cough, nausea vomiting, abdominal pain,, diarrhea, headache or constipation. All other systems were reviewed and were negative Other Vitals acceptable AFib on the monitor with controlled ventricular rate Interval history: Reason for consult: Shortness of breath, generalized weakness, acute respiratory failure, atrial fibrillation RVR, pneumonia Review of Systems Review of Systems: All systems reviewed & are unremarkable except as noted in HPI and below (HPI) Exam Narrative: General: Patient is alert awake in no distress HEENT:? Pupils equal reactive, sclera is clear, ETT in place Neck:? Tracheostomy scar noted Respiratory:? Coarse breath sounds bilateral bases, adequate air entry, no wheezing Cardiac:? Irregularly irregular, rate controlled Abdomen:? Soft, nontender, nondistended, normoactive bowel sounds NG tube in place Extremities:? Palpable pedal pulses, left knee more boggy with surgical scar. Right knee erythematous, warm Neuro:? AO x3, moves all 4 extremities follow command Skin:? Erythematous skin on right knee, no other skin lesions noted Psych:? Normal speech and affect Objective Data Vital Signs Vital Signs: Vital Signs - 24 hr 05/17/24 12:00 05/17/24 12:00 05/17/24 12:00 Temperature 37.1 C Pulse Rate 99 Respiratory Rate 16 Blood Pressure 126/103 H Pulse Oximetry 96 96 Oxygen Delivery Mechanical Ventilation Oxygen Flow Rate Fraction of Inspired Oxygen 40 40 05/17/24 12:00 05/17/24 12:15 05/17/24 14:00 Temperature 37.2 C Pulse Rate 97 109 H 112 H Respiratory Rate 25 H Blood Pressure 144/104 H Pulse Oximetry 96 93 Oxygen Delivery Mechanical Ventilation Oxygen Flow Rate Fraction of Inspired Oxygen 40 05/17/24 14:00 05/17/24 15:36 05/17/24 16:00 Temperature 37.3 C Pulse Rate 112 H 106 H 117 H Respiratory Rate 16 25 H Blood Pressure 137/111 H Pulse Oximetry 91 Oxygen Delivery Oxygen Flow Rate Fraction of Inspired Oxygen 05/17/24 16:00 05/17/24 16:00 05/17/24 18:00 Temperature Pulse Rate 121 H 116 H Respiratory Rate Blood Pressure Pulse Oximetry 87 L Oxygen Delivery Oxygen Flow Rate 3 Fraction of Inspired Oxygen 05/17/24 18:00 05/17/24 18:00 05/17/24 18:13 Temperature 37.3 C 37.3 C Pulse Rate 116 H 116 H Respiratory Rate 26 H 26 H Blood Pressure 135/106 H 135/112 H Pulse Oximetry 96 90 93 Oxygen Delivery Nasal Cannula Oxygen Flow Rate 2 Fraction of Inspired Oxygen 05/17/24 20:00 05/17/24 20:00 05/17/24 20:00 Temperature 37.4 C Pulse Rate 127 H 127 H 127 H Respiratory Rate 24 H 24 H Blood Pressure 144/103 H Pulse Oximetry 94 94 Oxygen Delivery Nasal Cannula Oxygen Flow Rate 3 Fraction of Inspired Oxygen 05/17/24 20:39 05/17/24 20:45 05/17/24 20:45 Temperature Pulse Rate 130 H 128 H Respiratory Rate 23 H Blood Pressure Pulse Oximetry 95 Oxygen Delivery Nasal Cannula Oxygen Flow Rate 3 Fraction of Inspired Oxygen 32 05/17/24 20:59 05/17/24 22:00 05/17/24 22:00 Temperature Pulse Rate 129 H 111 H 111 H Respiratory Rate 23 H 20 Blood Pressure 134/103 H Pulse Oximetry 96 Oxygen Delivery Oxygen Flow Rate Fraction of Inspired Oxygen 05/18/24 00:00 05/18/24 00:00 05/18/24 00:00 Temperature 37.1 C Pulse Rate 104 H 104 H 102 H Respiratory Rate 19 19 Blood Pressure 137/97 H Pulse Oximetry 96 96 Oxygen Delivery Nasal Cannula Oxygen Flow Rate 3 Fraction of Inspired Oxygen 05/18/24 02:00 05/18/24 02:00 05/18/24 02:01 Temperature Pulse Rate 103 H 103 H 103 H Respiratory Rate 21 H 18 Blood Pressure 122/100 H Pulse Oximetry 94 Oxygen Delivery Oxygen Flow Rate Fraction of Inspired Oxygen 05/18/24 02:12 05/18/24 03:24 05/18/24 04:00 Temperature 36.8 C Pulse Rate 102 H 96 99 Respiratory Rate 20 18 18 Blood Pressure 150/95 H Pulse Oximetry 100 100 Oxygen Delivery Nasal Cannula Oxygen Flow Rate 3 Fraction of Inspired Oxygen 05/18/24 04:00 05/18/24 06:00 05/18/24 06:00 Temperature Pulse Rate 99 90 94 Respiratory Rate 20 Blood Pressure 148/91 H Pulse Oximetry 100 Oxygen Delivery Oxygen Flow Rate Fraction of Inspired Oxygen 05/18/24 08:20 05/18/24 08:20 05/18/24 08:49 Temperature Pulse Rate 99 100 Respiratory Rate 20 20 Blood Pressure Pulse Oximetry 98 Oxygen Delivery Nasal Cannula Oxygen Flow Rate 1 Fraction of Inspired Oxygen 05/18/24 09:42 05/18/24 09:42 Temperature Pulse Rate 128 H Respiratory Rate Blood Pressure Pulse Oximetry 94 Oxygen Delivery Room Air Oxygen Flow Rate Fraction of Inspired Oxygen Intake/Output Intake/Output: Intake & Output 05/15/24 05/16/24 05/17/24 05/18/24 23:59 23:59 23:59 23:59 Intake Total 3361.3 2728.6 1503.9 197 Output Total 1425 3900 1300 1500 Balance 1936.3 -1171.4 203.9 -1303 Meds/Results Medications: Active Medications Generic Name Dose Route Start Last Admin Trade Name Freq PRN Reason Stop Dose Admin Acetaminophen 650 mg 05/14/24 18:25 05/17/24 20:47 Acetaminophen Elixir 325 Mg/10.15 Ml Udc PO 650 mg Q6H PRN Administration Mild Pain (1-3) or Fever Dextrose 12.5 gm 05/15/24 19:27 Dextrose 50% 25 Gm/50 Ml Syringe IV PUSH PRN PRN Hypoglycemia Protocol Glucagon 1 mg 05/15/24 19:27 Glucagon For Inj 1 Mg Vial IM PRN PRN Hypoglycemia Protocol Glucose 15 gm 05/15/24 19:27 Glucose Oral Gel 15 Gm Of Glucse In 37.5 Gm Tube PO PRN PRN Hypoglycemia Protocol Heparin Sodium (Porcine) 6,500 units 05/14/24 17:17 05/18/24 04:29 Heparin Sodium 5,000 Units/Ml Vial IV PUSH 6,500 units PRN PRN Administration aPTT less than 55 seconds Heparin Sodium (Porcine) 3,500 units 05/14/24 17:17 Heparin Sodium 5,000 Units/Ml Vial IV PUSH PRN PRN aPTT 55 - 70 seconds Heparin Sodium/Dextrose 25,000 units in 250 mls @ 9 mls/hr 05/14/24 17:20 05/18/24 04:29 Heparin Sodium/D5w 100 Units/Ml IV CONT 900 units/hr .Q24H DAKSHA 9 mls/hr Titration Protocol 900 UNITS/HR Doxycycline Hyclate 100 mg in 100 mls @ 100 mls/hr 05/14/24 19:00 05/18/24 06:15 Vibramycin 100 Mg/Ns 100 Ml IVPB 05/19/24 18:59 Infused Q12H DAKSHA Infusion Cefepime HCl 2 gm in 50 mls @ 100 mls/hr 05/15/24 06:00 05/18/24 05:45 Maxipime 2 Gm/Ns 50 Ml IVPB Infused Q8HR DAKSHA Infusion Dextrose 1,000 mls @ 100 mls/hr 05/15/24 19:27 Dextrose 5% 1,000 Ml IVPB PRN PRN Hypoglycemia Protocol Ipratropium [place] 0.5 mg 05/15/24 14:00 05/18/24 08:20 Ipratropium Br 0.02% Inh Soln 0.5 Mg/2.5 Ml Vial INHALATION 0.5 mg Q6HRT DAKSHA Administration Levalbuterol HCl 0.63 mg 05/15/24 14:00 05/18/24 08:20 Levalbuterol Neb 1.25 Mg/3 Ml INHALATION 0.63 mg Q6HRT DAKSHA Administration Metoprolol Tartrate 2.5 mg 05/14/24 19:49 05/17/24 19:03 Metoprolol Tartrate Inj 5 Mg/5 Ml Vial IV PUSH 2.5 mg Q3H PRN Administration persistent tachycardia, >120 Metoprolol Tartrate 75 mg 05/16/24 21:00 05/18/24 09:42 Metoprolol Tartrate 25 Mg Tablet PO 75 mg Q12HR DAKSHA Administration Multi-Ingred Cream/Lotion/Oil/Oint 1 applic 05/14/24 21:00 05/18/24 09:43 Mineral Oil/White Petrolatum Ointment EACH EYE Not Given Q12HR DAKSHA Pantoprazole Sodium 40 mg 05/15/24 09:00 05/18/24 09:42 Pantoprazole Sodium Iv 40 Mg Vial IV PUSH 40 mg QAM DAKSHA Administration Polyethylene Glycol 17 gm 03/04/25 08:04 Polyethylene Glycol 3350 17 Gm Powd.Pack PO QAM PRN COnstipation Senna/Docusate Sodium 1 tab 05/18/24 08:04 Senna/Docusate Sodium Tablet PO DAILY PRN Constipation Sodium Chloride 10 ml 05/14/24 22:00 05/18/24 06:36 Central Line Flush IV PUSH 10 ml Q8HR DAKSHA Administration Sodium Chloride 20 ml 05/14/24 19:36 05/16/24 20:55 Central Line Flush IV PUSH 20 ml PRN PRN Administration after blood draws Radiology Results: ITS Impressions Abdomen/Pelvis CT 05/14/24 13:28 IMPRESSION: 1. Pulmonary edema. 2. Small pleural effusions. 3. Small volume of ascites. Head CT 05/14/24 15:43 IMPRESSION: 1. 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 2. Small lateral and third ventricles, which is a change from the prior exam. Shunt catheter unchanged in position. Chest CTA 05/14/24 15:49 IMPRESSION: 1. No evident pulmonary embolism. Sensitivity decreased in the segmental pulmonary arteries and nondiagnostic in many of the smaller subsegmental pulmonary arteries particularly in the lung bases due to combination of suboptimal contrast opacification, respiratory motion and streak artifact. 2. Small to moderate-sized bilateral pleural effusions with dependent compressive atelectasis. Difficult to exclude superimposed pneumonia although suspicion is low. 3. Cardiomegaly. 4. 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 Nasogastric tube in stomach. 2. Cardiomegaly. 3. Retrocardiac opacity left lower lung zone which could represent persistent small pleural effusion, atelectasis or pneumonia. Venous Doppler Study 05/15/24 12:29 IMPRESSION: 1. No deep venous thrombosis in either lower limb. Chest X-Ray 05/18/24 06:20 Impression: Possible minimal central congestive change. Significant interval improvement in left lower lobe airspace disease since prior exam. NG tube in place. Labs Labs: Laboratory Results - last 24 hr 05/15/24 05/17/24 05/17/24 10:52 12:09 12:29 WBC RBC Hgb Hct MCV MCH MCHC RDW Plt Count MPV Immature Gran % (Auto) Neut % (Auto) Lymph % (Auto) [place] % (Auto) Eos % (Auto) Baso % (Auto) Lymph # (Auto) [place] # (Auto) Eos # (Auto) Baso # (Auto) Abs Immat Gran (auto) Absolute Neuts (auto) Absolute Nucleated RBC Total Counted Neutrophils % (Manual) Band Neutrophils % Lymphocytes % (Manual) Monocytes % (Manual) Nucleated RBC % Abs Neuts (Manual) Abs Lymphs (Manual) Abs Monocytes (Manual) Platelet Estimate Schistocytes APTT 116.6 H Puncture Site ABG pH ABG pCO2 ABG pO2 ABG PO2/FiO2 Ratio ABG HCO3 ABG O2 Saturation ABG O2 Content ABG Base Excess A-a Gradient Oxyhemoglobin Total Hemoglobin O2 Delivery Device O2 Liters/Min Minute Volume Vent Rate Vent Mode FiO2 Tidal Volume PEEP Peak Inspir Pressure Pressure Support Sodium Potassium Chloride Carbon Dioxide Anion Gap BUN Creatinine Estim Creat Clear Calc Estimated GFR Glucose POC Capillary Glucose 111 H Calcium Phosphorus Magnesium Total Bilirubin AST ALT Alkaline Phosphatase Total Protein Albumin 2.8 L Ctznj-1-Oehicqxmv 0.3 Jkhjh-1-Pkvvpwlhp 0.5 Nqwv-5-Gfnaiwgb 0.3 L Eeyw-2-Gbyrsnum 0.3 Gamma Globulins 0.6 L PEP Interpretation See note 05/17/24 05/17/24 05/17/24 13:20 18:19 19:06 WBC RBC Hgb Hct MCV MCH MCHC RDW Plt Count MPV Immature Gran % (Auto) Neut % (Auto) Lymph % (Auto) [place] % (Auto) Eos % (Auto) Baso % (Auto) Lymph # (Auto) [place] # (Auto) Eos # (Auto) Baso # (Auto) Abs Immat Gran (auto) Absolute Neuts (auto) Absolute Nucleated RBC Total Counted Neutrophils % (Manual) Band Neutrophils % Lymphocytes % (Manual) Monocytes % (Manual) Nucleated RBC % Abs Neuts (Manual) Abs Lymphs (Manual) Abs Monocytes (Manual) Platelet Estimate Schistocytes APTT 85.3 H Puncture Site Right radial ABG pH 7.477 H ABG pCO2 34.4 L ABG pO2 98.2 ABG PO2/FiO2 Ratio 2.45 ABG HCO3 24.9 ABG O2 Saturation 97.9 ABG O2 Content 18.8 ABG Base Excess 1.8 A-a Gradient 147.4 Oxyhemoglobin 97.2 Total Hemoglobin 13.7 O2 Delivery Device Ventilator O2 Liters/Min Not Reportable Minute Volume Not Reportable Vent Rate Not Reportable Vent Mode Spontaneous FiO2 40 Tidal Volume Not Reportable PEEP 5 Peak Inspir Pressure 8 Pressure Support Not Reportable Sodium Potassium Chloride Carbon Dioxide Anion Gap BUN Creatinine Estim Creat Clear Calc Estimated GFR Glucose POC Capillary Glucose 100 Calcium Phosphorus Magnesium Total Bilirubin AST ALT Alkaline Phosphatase Total Protein Albumin Banod-1-Euhamxxqr Slgzs-8-Voxuegpbu Zwrv-8-Reogdulp Kzai-5-Voxtbiel Gamma Globulins PEP Interpretation 05/18/24 02:49 WBC 10.9 H RBC 4.21 L Hgb 14.0 Hct 41.4 L MCV 98.3 MCH 33.3 MCHC 33.8 RDW 14.2 Plt Count 231 MPV 10.7 H Immature Gran % (Auto) Not Reportable Neut % (Auto) Not Reportable Lymph % (Auto) Not Reportable [place] % (Auto) Not Reportable Eos % (Auto) Not Reportable Baso % (Auto) Not Reportable Lymph # (Auto) Not Reportable [place] # (Auto) Not Reportable Eos # (Auto) Not Reportable Baso # (Auto) Not Reportable Abs Immat Gran (auto) Not Reportable Absolute Neuts (auto) Not Reportable Absolute Nucleated RBC Not Reportable Total Counted 100 Neutrophils % (Manual) 92 H Band Neutrophils % 0 Lymphocytes % (Manual) 4.0 L Monocytes % (Manual) 4 Nucleated RBC % Not Reportable Abs Neuts (Manual) 10.02 H Abs Lymphs (Manual) 0.43 L Abs Monocytes (Manual) 0.43 Platelet Estimate Adequate Schistocytes None seen APTT 39.2 H Puncture Site ABG pH ABG pCO2 ABG pO2 ABG PO2/FiO2 Ratio ABG HCO3 ABG O2 Saturation ABG O2 Content ABG Base Excess A-a Gradient Oxyhemoglobin Total Hemoglobin O2 Delivery Device O2 Liters/Min Minute Volume Vent Rate Vent Mode FiO2 Tidal Volume PEEP Peak Inspir Pressure Pressure Support Sodium 133 L Potassium 4.6 Chloride 97 L Carbon Dioxide 30 Anion Gap 6 BUN 13 Creatinine 0.52 L Estim Creat Clear Calc 147 Estimated GFR > 60 Glucose 122 H POC Capillary Glucose Calcium 8.4 Phosphorus 4.0 Magnesium 1.7 Total Bilirubin 1.3 AST 63 H ALT 63 H Alkaline Phosphatase 82 Total Protein 7.0 Albumin 3.5 Tucqc-9-Pcjvvixqe Catxv-1-Rvbthwutz Ypqj-2-Nmzevesz Fkgu-8-Bwhrcgta Gamma Globulins PEP Interpretation Quality VTE Prophylaxis VTE prophylaxis: pharmacologic ordered
[2024-05-18 11:42] LABS: Glucose Point of Care 95 mg/dl (65-105)
[2024-05-18 12:01] LABS: Partial Thromboplastin Time 120.2 Seconds (22.3-36.8)
[2024-05-18] MEDS: METOPROLOL TARTRATE INJ 5 MG/5 ML VIAL IV PUSH (14:24)
--- NOTE | 2024-05-18 15:41 | PCSTNOTE ---
Please refer to the Bedside Swallow Evaluation in the EMR. Please note, silent aspiration cannot be ruled out at bedside. Completed at 13:30 The above pt was seen bedside for a swallow evaluation; pt was intubated x 3-4 days He has a h/o CVA & brain aneurysm s/p surgery. The pt was positioned upright in the ICU bed and was alert & able to follow commands. He is currently NPO and pulled out the NG tube. Oral mucosa is normal with good natural dentition; Oral peripheral exam revealed lingual and labial structures to be WFL. He was able to dry swallow on command; pt appeared SOB at times and exhibited a breathy vocal quality. He was tested with pudding, cracker, and 5cc of thin liquids. He was also tested with thin liquids in uncontrolled amounts via a cup and a straw. The oral stages appeared WNL. No oral residue, leakage, or pocketing was noted. During the pharyngeal stage, the swallow reflex appeared prompt & laryngeal elevation adequate but coughing occurred after the thin liquid trial via straw drinking suggesting possible aspiration. Testing was then discontinued as ST recommends an MBS for further assessment. Impression: questionable degree of dysphagia due to overt s/s of aspiration with thin liquids. Recommendations: MBS to further assess swallow ability, determine a safe diet, as well as an appropriate diet.
--- NOTE | 2024-05-18 15:43 | PCSTNOTE ---
Please refer to the Modified Barium Swallow (MBS) Evaluation in the EMR. The above pt was seen for an MBS due to overt s/s of aspiration noted during the bedside swallow evaluation, specifically, coughing with thin liquids. Pt also has a h/o PMH of TBI, seizure, and brain aneurysm (s/p surgery). He was seated for a lateral view and presented with 5cc of thin liquid barium via spoon, pudding consistency barium via a spoon, cracker coated with barium pudding via spoon, and uncontrolled thin liquid barium. This was presented via a cup & straw. Oral preparatory and oral phase symptoms: none. Pharyngeal phase symptoms: none. Esophageal stage symptoms: none. No aspiration occurred. Impressions: Normal swallow Ability Recommendations: regular diet with regular liquids No further ST is warranted at this time.
[2024-05-18] MEDS: dilTIAZem 100 MG/100 ML 100 MG/100 ML BAG 10 MG IV CONT (17:27)
[2024-05-18 18:56] LABS: Partial Thromboplastin Time 44.2 Seconds (22.3-36.8)
[2024-05-18] MEDS: METOPROLOL TARTRATE 50 MG TAB 100 MG PO (21:41)
[2024-05-19] VITALS (34 sets, daily range): BP systolic 119–153; BP diastolic 53–112; PULSE 69–105; RESP 18–24; TEMP 36.4–36.9; O2SAT 96–100
[2024-05-19] MEDS: dilTIAZem 100 MG/100 ML 100 MG/100 ML BAG 10 MG IV CONT ×2 (01:15→11:24)
[2024-05-19 01:45] LABS: Partial Thromboplastin Time 143.5 Seconds (22.3-36.8)
[2024-05-19] MEDS: IPRATROPIUM BR 0.02% INH SOLN 0.5 MG/2.5 ML VIAL INHALATION ×4 (02:02→20:02)
[2024-05-19] MEDS: LEVALBUTEROL NEB 1.25 MG/3 ML 0.63 MG INHALATION ×4 (02:03→20:01)
--- NOTE | 2024-05-19 02:55 | PC.NURSE ---
This patient, Moose Miranda, was transferred to [206-2 ] on 05/19/24 at 0449. Personal belongings sent with patient. Report given to [ Jessica/Christine BENNETT]. Appropriate documentation sent with patient.
[2024-05-19] MEDS: HEPARIN SOD/D5W 100 UNITS/ML 25,000 UNITS/250 ML BAG 8 UNITS IV CONT (06:07)
[2024-05-19] MEDS: CEFEPIME 2 GM/NS 50 ML 2 GM/50 ML BAG IVPB ×3 (06:09→21:47)
[2024-05-19] MEDS: CENTRAL LINE FLUSH 10 ML IV PUSH ×3 (06:10→21:48)
[2024-05-19 06:33] LABS: Hematocrit 41.6 % (42.0-52.0); Hemoglobin 13.8 g/dL (14.0-18.0); Mean Corpuscular HGB Conc 33.2 g/dl (32-36); Mean Corpuscular Hemoglobin 32.9 pg (26-34); Mean Platelet Volume 11.1 fl (7.4-10.4); Platelet Count Result 240 k/mm3 (150-375); Red Cell Distribution Width 13.8 % (11.5-14.5); White Blood Count 13.1 K/mm3 (4.5-10.0)
[2024-05-19 06:38] LABS: Partial Thromboplastin Time 55.8 Seconds (22.3-36.8)
[2024-05-19 06:43] LABS: Alanine Aminotransferase 157 U/L (6-50); Albumin Level 3.6 g/dL (3.5-5.1); Alkaline Phosphatase 81 U/L (38-126); Anion Gap 8 mmol/L (4-12); Aspartate Amino Transferase 210 U/L (17-59); Bilirubin,Total 1.1 mg/dL (0.2-1.3); Blood Urea Nitrogen 26 mg/dL (9-20); Carbon Dioxide 32 mmol/L (22-30); Chloride 95 mmol/L (98-107); Estimated CRCL calculation 119 ml/min; Estimated Glomerular Filt Rate > 60; Glucose 109 mg/dL (65-110); Magnesium 1.7 mg/dL (1.6-2.3); Potassium 3.8 mmol/L (3.4-5.0); Sodium 135 mmol/L (137-145)
[2024-05-19] MEDS: DOXYCYCLINE 100 MG/NS 100 ML 100 MG/100 ML BAG IVPB (06:44)
[2024-05-19] MEDS: HEPARIN SODIUM 5,000 UNITS/ML VIAL 3500 UNITS IV PUSH (06:53)
--- NOTE | 2024-05-19 07:22 | PC.NURSE ---
Notified pt's mother, Dipti ([phone]), of updated room assignment in room 206-2. Also updated to visitor policies in a double room.
[2024-05-19] MEDS: METOPROLOL TARTRATE 50 MG TAB 100 MG PO ×2 (08:26→20:47)
[2024-05-19] MEDS: PANTOPRAZOLE SODIUM IV 40 MG VIAL IV PUSH (08:26)
[2024-05-19 12:33] LABS: Osmolality, Urine 735 mOsm/kg (50-1200)
[2024-05-19 13:25] LABS: Partial Thromboplastin Time 89.4 Seconds (22.3-36.8)
--- NOTE | 2024-05-19 14:51 | P.PNCA_ITS ---
Progress Note: A&P Assessment and Plan (1) Systolic heart failure: Code(s): I50.20 - Unspecified systolic (congestive) heart failure Status: Acute Plan 48-year-old man with traumatic brain injury, brain aneurysm status post surgery (at age 12), hypertension, ulcerative colitis, and seizures initially presented with worsening shortness of breath and generalized weakness Acute heart failure with reduced LVEF of 35-40% -Start Entresto. -Switch Metoprolol tartrate to succinate. -Uptitrate heart failure GDMT as tolerated by hemodynamics. Paroxysmal atrial fibrillation -Switch Heparin drip to Eliquis 5mg BID. -Transition Metoprolol tartrate to succinate given reduced LVEF. -Currently on Diltiazem drip, rate controlled. Stop Diltiazem drip. Diltiazem should be avoided in patients with reduced LVEF. -Given the severity of his left atrial dilation, most likely will need outpatient EP referral for ablation Moderate to severe mitral regurgitation -Will re-evaluate once he is euvolemic and on guideline directed medical therapy Pulmonary hypertension -Most likely secondary to left-sided heart disease and will re-evaluate once he is euvolemic and has been trialed on guideline directed medical therapy Subjective Date/time seen: 05/19/24 14:51 Interval history: Reason for visit: HFrEF HPI: 48-year-old man with traumatic brain injury, brain aneurysm status post surgery (at age 12), hypertension, ulcerative colitis, and seizures initially presented with worsening shortness of breath and generalized weakness. There was associated lower extremity swelling and upon presentation to the emergency room he was also found to have paroxysmal atrial fibrillation with rapid ventricular rate and upon starting diltiazem drip, patient started to have respiratory distress leading to intubation. Currently he states that his shortness of breath has improved as well as the lower extremity swelling. He denies any chest discomfort when he is performing physical activity outside of the hospital. Denies any syncopal events. The atrial fibrillation is new to him. Date of service 05/19: CXR this morning shows clear lungs. Patient states he feels okay. Review of Systems Cardiovascular: Cardiovascular: Reports as per HPI Exam Const: General: no acute distress Eyes: General: appearance normal, both eyes and all related structures Sclera: sclerae normal Resp: Other: Slightly labored breathing Cardio: Rhythm: abnormal rhythm irregularly irregular Neuro: Speech: normal speech Psych: Mental Status: mental status grossly normal Affect: normal affect Objective Data Vital Signs Vital Signs: Vital Signs - 24 hr 05/18/24 16:00 05/18/24 16:00 05/18/24 16:00 Temperature 37.5 C Pulse Rate 131 H 142 H Respiratory Rate 22 H Blood Pressure 128/115 H Pulse Oximetry 97 97 Oxygen Delivery Room Air Oxygen Flow Rate Fraction of Inspired Oxygen 05/18/24 17:27 05/18/24 18:00 05/18/24 18:00 Temperature Pulse Rate 187 H 128 H 128 H Respiratory Rate Blood Pressure 149/105 H 145/112 H Pulse Oximetry Oxygen Delivery Oxygen Flow Rate Fraction of Inspired Oxygen 05/18/24 18:00 05/18/24 20:00 05/18/24 20:00 Temperature 37.4 C 37.2 C Pulse Rate 128 H 107 H Respiratory Rate 25 H 18 Blood Pressure 124/112 H 142/103 H Pulse Oximetry 96 95 95 Oxygen Delivery Room Air Oxygen Flow Rate Fraction of Inspired Oxygen 05/18/24 20:00 05/18/24 20:00 05/18/24 20:06 Temperature Pulse Rate 107 H 109 H 113 H Respiratory Rate 20 Blood Pressure 142/103 H Pulse Oximetry Oxygen Delivery Oxygen Flow Rate Fraction of Inspired Oxygen 05/18/24 20:16 05/18/24 21:41 05/18/24 22:00 Temperature Pulse Rate 102 H 101 H 104 H Respiratory Rate 20 Blood Pressure 138/108 H Pulse Oximetry Oxygen Delivery Oxygen Flow Rate Fraction of Inspired Oxygen 05/18/24 22:00 05/18/24 22:00 05/19/24 00:00 Temperature Pulse Rate 104 H 104 H 85 Respiratory Rate 20 Blood Pressure 138/108 H 130/102 H Pulse Oximetry 98 Oxygen Delivery Oxygen Flow Rate Fraction of Inspired Oxygen 05/19/24 00:00 05/19/24 00:00 05/19/24 00:00 Temperature 36.8 C Pulse Rate 85 91 Respiratory Rate 24 H Blood Pressure 130/102 H Pulse Oximetry 97 97 Oxygen Delivery Nasal Cannula Oxygen Flow Rate 2 Fraction of Inspired Oxygen 05/19/24 01:15 05/19/24 01:15 05/19/24 02:00 Temperature Pulse Rate 77 77 88 Respiratory Rate 23 H Blood Pressure 133/96 H 133/96 H 132/101 H Pulse Oximetry 96 Oxygen Delivery Oxygen Flow Rate Fraction of Inspired Oxygen 05/19/24 02:00 05/19/24 02:02 05/19/24 02:02 Temperature Pulse Rate 88 79 Respiratory Rate 20 Blood Pressure Pulse Oximetry 97 Oxygen Delivery Nasal Cannula Oxygen Flow Rate 2 Fraction of Inspired Oxygen 28 05/19/24 02:14 05/19/24 03:08 05/19/24 03:28 Temperature Pulse Rate 76 85 Respiratory Rate 20 Blood Pressure Pulse Oximetry 97 Oxygen Delivery Nasal Cannula Oxygen Flow Rate 2 Fraction of Inspired Oxygen 05/19/24 04:00 05/19/24 04:07 05/19/24 04:28 Temperature 36.9 C Pulse Rate 83 92 89 Respiratory Rate 23 H Blood Pressure 139/94 H 139/94 H Pulse Oximetry 97 Oxygen Delivery Oxygen Flow Rate Fraction of Inspired Oxygen 05/19/24 05:52 05/19/24 06:00 05/19/24 06:23 Temperature Pulse Rate 91 82 86 Respiratory Rate Blood Pressure 153/97 H Pulse Oximetry 100 Oxygen Delivery Oxygen Flow Rate Fraction of Inspired Oxygen 05/19/24 08:00 05/19/24 08:00 05/19/24 08:00 Temperature 36.9 C Pulse Rate 87 87 Respiratory Rate 24 H Blood Pressure 139/98 H 139/98 H Pulse Oximetry 100 100 Oxygen Delivery Nasal Cannula Oxygen Flow Rate 2 Fraction of Inspired Oxygen 05/19/24 08:00 05/19/24 08:26 05/19/24 08:43 Temperature Pulse Rate 101 H 93 94 Respiratory Rate 20 Blood Pressure Pulse Oximetry 96 Oxygen Delivery Nasal Cannula Oxygen Flow Rate 2 Fraction of Inspired Oxygen 05/19/24 08:43 05/19/24 08:55 05/19/24 10:00 Temperature Pulse Rate 94 105 H 91 Respiratory Rate 20 20 Blood Pressure 129/53 L Pulse Oximetry Oxygen Delivery Oxygen Flow Rate Fraction of Inspired Oxygen 05/19/24 10:00 05/19/24 10:00 05/19/24 11:15 Temperature Pulse Rate 89 91 77 Respiratory Rate Blood Pressure 129/53 L Pulse Oximetry Oxygen Delivery Oxygen Flow Rate Fraction of Inspired Oxygen 05/19/24 11:24 05/19/24 12:00 05/19/24 12:00 Temperature 36.6 C Pulse Rate 77 86 Respiratory Rate 24 H Blood Pressure 134/84 Pulse Oximetry 100 100 Oxygen Delivery Nasal Cannula Oxygen Flow Rate 2 Fraction of Inspired Oxygen 05/19/24 12:00 05/19/24 12:45 05/19/24 13:23 Temperature Pulse Rate 74 86 73 Respiratory Rate 20 Blood Pressure 134/84 Pulse Oximetry 96 Oxygen Delivery Nasal Cannula Oxygen Flow Rate 2 Fraction of Inspired Oxygen 05/19/24 13:23 05/19/24 13:46 05/19/24 14:00 Temperature Pulse Rate 73 78 77 Respiratory Rate 20 20 Blood Pressure Pulse Oximetry Oxygen Delivery Oxygen Flow Rate Fraction of Inspired Oxygen 05/19/24 14:00 Temperature Pulse Rate Respiratory Rate Blood Pressure 119/71 Pulse Oximetry Oxygen Delivery Oxygen Flow Rate Fraction of Inspired Oxygen Intake/Output Intake/Output: Intake & Output 05/16/24 05/17/24 05/18/24 05/19/24 23:59 23:59 23:59 23:59 Intake Total 2728.6 1503.9 911.5 766.3 Output Total 3900 1300 3500 800 Balance -1171.4 203.9 -2588.5 -33.7 Meds/Results Medications: Active Medications Generic Name Dose Route Start Last Admin Trade Name Freq PRN Reason Stop Dose Admin Acetaminophen 650 mg 05/19/24 12:03 Acetaminophen 325 Mg Tablet PO Q6H PRN Mild Pain (1-3) or Fever Apixaban 5 mg 05/19/24 21:00 Apixaban 5 Mg Tablet PO Q12HR DAKSHA Dextrose 12.5 gm 05/15/24 19:27 Dextrose 50% 25 Gm/50 Ml Syringe IV PUSH PRN PRN Hypoglycemia Protocol Glucagon 1 mg 05/15/24 19:27 Glucagon For Inj 1 Mg Vial IM PRN PRN Hypoglycemia Protocol Glucose 15 gm 05/15/24 19:27 Glucose Oral Gel 15 Gm Of Glucse In 37.5 Gm Tube PO PRN PRN Hypoglycemia Protocol Doxycycline Hyclate 100 mg in 100 mls @ 100 mls/hr 05/14/24 19:00 05/19/24 06:44 Vibramycin 100 Mg/Ns 100 Ml IVPB 05/19/24 18:59 100 mls/hr Q12H DAKSHA Administration Cefepime HCl 2 gm in 50 mls @ 100 mls/hr 05/15/24 06:00 05/19/24 06:39 Maxipime 2 Gm/Ns 50 Ml IVPB Infused Q8HR DAKSHA Infusion Dextrose 1,000 mls @ 100 mls/hr 05/15/24 19:27 Dextrose 5% 1,000 Ml IVPB PRN PRN Hypoglycemia Protocol Ipratropium [address] 0.5 mg 05/15/24 14:00 05/19/24 13:22 Ipratropium Br 0.02% Inh Soln 0.5 Mg/2.5 Ml Vial INHALATION 0.5 mg Q6HRT DAKSHA Administration Levalbuterol HCl 0.63 mg 05/15/24 14:00 05/19/24 13:23 Levalbuterol Neb 1.25 Mg/3 Ml INHALATION 0.63 mg Q6HRT DAKSHA Administration Metoprolol Succinate 200 mg 05/20/24 09:00 Metoprolol Succinate Ext Rel 100 Mg Tabcr PO QAM DAKSHA Metoprolol Tartrate 5 mg 05/18/24 14:11 05/18/24 14:24 Metoprolol Tartrate Inj 5 Mg/5 Ml Vial IV PUSH 5 mg Q4H PRN Administration persistent tachycardia, >120 Metoprolol Tartrate 100 mg 05/18/24 21:00 05/19/24 08:26 Metoprolol Tartrate 50 Mg Tab PO 05/19/24 23:59 100 mg Q12HR DAKSHA Administration Pantoprazole Sodium 40 mg 05/20/24 09:00 Pantoprazole 40 Mg Tablet PO QAM DAKSHA Polyethylene Glycol 17 gm 05/18/24 08:04 Polyethylene Glycol 3350 17 Gm Powd.Pack PO QAM PRN COnstipation Sacubitril/Valsartan 1 tab 05/19/24 21:00 Sacubitril/Valsartan 24-26 Mg Tablet PO Q12HR DAKSHA Senna/Docusate Sodium 1 tab 05/18/24 08:04 Senna/Docusate Sodium Tablet PO DAILY PRN Constipation Sodium Chloride 10 ml 05/14/24 22:00 05/19/24 06:10 Central Line Flush IV PUSH 10 ml Q8HR DAKSHA Administration Sodium Chloride 20 ml 05/14/24 19:36 05/16/24 20:55 Central Line Flush IV PUSH 20 ml PRN PRN Administration after blood draws Radiology Results: ITS Impressions Abdomen/Pelvis CT 05/14/24 13:28 IMPRESSION: 1. Pulmonary edema. 2. Small pleural effusions. 3. Small volume of ascites. Head CT 05/14/24 15:43 IMPRESSION: 1. 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 2. Small lateral and third ventricles, which is a change from the prior exam. Shunt catheter unchanged in position. Chest CTA 05/14/24 15:49 IMPRESSION: 1. No evident pulmonary embolism. Sensitivity decreased in the segmental pulmonary arteries and nondiagnostic in many of the smaller subsegmental pulmonary arteries particularly in the lung bases due to combination of suboptimal contrast opacification, respiratory motion and streak artifact. 2. Small to moderate-sized bilateral pleural effusions with dependent compressive atelectasis. Difficult to exclude superimposed pneumonia although suspicion is low. 3. Cardiomegaly. 4. 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 Nasogastric tube in stomach. 2. Cardiomegaly. 3. Retrocardiac opacity left lower lung zone which could represent persistent small pleural effusion, atelectasis or pneumonia. Venous Doppler Study 05/15/24 12:29 IMPRESSION: 1. No deep venous thrombosis in either lower limb. Modified Barium Swallow 05/18/24 15:18 IMPRESSION: 1. Normal modified barium swallow. 2. Please refer to the speech therapy report for recommendations. Chest X-Ray 05/19/24 06:44 Impression: Clear lungs. Labs Labs: Laboratory Results - last 24 hr 05/15/24 05/18/24 05/19/24 10:52 18:27 01:23 WBC RBC Hgb Hct MCV MCH MCHC RDW Plt Count MPV APTT 44.2 H 143.5 H Sodium Potassium Chloride Carbon Dioxide Anion Gap BUN Creatinine Estim Creat Clear Calc Estimated GFR Glucose Calcium Magnesium Total Bilirubin AST ALT Alkaline Phosphatase Total Protein Albumin Urine Osmolality 735 05/19/24 05/19/24 06:05 12:56 WBC 13.1 H RBC 4.20 L Hgb 13.8 L Hct 41.6 L MCV 99.0 MCH 32.9 MCHC 33.2 RDW 13.8 Plt Count 240 MPV 11.1 H APTT 55.8 H 89.4 H Sodium 135 L Potassium 3.8 Chloride 95 L Carbon Dioxide 32 H Anion Gap 8 BUN 26 H D Creatinine 0.66 L Estim Creat Clear Calc 119 Estimated GFR > 60 Glucose 109 Calcium 9.0 Magnesium 1.7 Total Bilirubin 1.1 AST 210 H ALT 157 H Alkaline Phosphatase 81 Total Protein 7.0 Albumin 3.6 Urine Osmolality
--- NOTE | 2024-05-19 15:46 | P.PNIM_ITS ---
Progress Note: A&P Assessment and Plan (1) Sepsis: Qualifiers: Sepsis type: sepsis due to unspecified organism Sepsis acute organ dysfunction status: with acute organ dysfunction Severe sepsis acute organ dysfunction type: encephalopathy Severe sepsis shock status: without septic shock Qualified Code(s): A41.9 - Sepsis, unspecified organism; R65.20 - Severe sepsis without septic shock; G93.41 - Metabolic encephalopathy Code(s): A41.9 - Sepsis, unspecified organism Status: Acute Assessment and Plan: Patient presented with shortness of breath, generalized weakness, acute altered mental status -tachycardia, elevated WBC count -chest CTA likely pneumonia, possible cellulitis of the right knee -MRSA screen negative, discontinue vancomycin (05/16) -blood pressures have remained stable, patient not requiring pressors -05/14: Blood cultures: Primary cultures are negative -05/15: Sputum cultures are negative -05/15: Bilateral lower extremity venous Dopplers were negative for DVT bilaterally Completed Doxycycline Day 06/21 CEfepime monitor (2) Acute respiratory failure: Code(s): J96.00 - Acute respiratory failure, unspecified whether with hypoxia or hypercapnia Status: Acute Assessment and Plan: Acute respiratory failure could be multifactorial, inflammation RVR, seizures, chronic encephalomalacia, -05/14: intubated in the ER - / extubated Now on room air. Add incentive spirometry. PT OT consult Continue bronchodilators Lasix IV 05/14/2024 CTA chest: IMPRESSION: 1. No evident pulmonary embolism. Sensitivity decreased in the segmental pulmonary arteries and nondiagnostic in many of the smaller subsegmental pulmonary arteries particularly in the lung bases due to combination of suboptimal contrast opacification, respiratory motion and streak artifact. 2. Small to moderate-sized bilateral pleural effusions with dependent compressive atelectasis. Difficult to exclude superimposed pneumonia although suspicion is low. 3. Cardiomegaly. 4. 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 2. Small lateral and third ventricles, which is a change from the prior exam. Shunt catheter unchanged in position. (4) Pneumonia: Qualifiers: Pneumonia type: due to unspecified organism Laterality: bilateral Lung location: lower lobe of lung Qualified Code(s): J18.9 - Pneumonia, unspecified organism Code(s): J18.9 - Pneumonia, unspecified organism Status: Acute Assessment and Plan: Continue antibiotics as above Sputum cultures negative (5) Hyponatremia: Code(s): E87.1 - Hypo-osmolality and hyponatremia Status: Acute Assessment and Plan: Hyponatremia, multifactorial, could be related to pneumonia, SIADH, history of TBI, patient does have a history of hyponatremia in 2019, 2019, 2022 Improved. Now off of all fluids Monitor Nephrology following (6) Atrial fibrillation with rapid ventricular response: Code(s): I48.91 - Unspecified atrial fibrillation Status: Acute Assessment and Plan: Ventricular rate improved now. Continue metoprolol and heparin infusion.. Will switch to p.o. anticoagulation once p.o. intake is unsure Cardiology following 05/15/2024 echocardiogram Summary 1. Complete two-dimensional, color flow and Doppler transthoracic echocardiogram is performed. 2. Left ventricular chamber dimension is mildly enlarged. 3. Left ventricular systolic function is moderately reduced, estimated at 35- 40%. 4. There is mildly increased left ventricular wall thickness. 5. The left ventricular diastolic function is abnormal. 6. Left atrial chamber dimension is severely enlarged. 7. Right atrial chamber dimension is mildly enlarged. 8. There is moderate to severe mitral valve regurgitation. 9. There is mild tricuspid valve regurgitation. 10. Severe pulmonary hypertension, estimated pulmonary arterial systolic pressure is 72 mmHg. 11. There is mild pulmonic regurgitation. 12. Pleural effusion seen. (7) Acute brachiocephalic vein thrombosis: Code(s): I82.290 - Acute embolism and thrombosis of other thoracic veins Status: Acute Assessment and Plan: Patient's face was cyanotic, CTA chest showed complete occlusion of distal left brachiocephalic vein, -hospitalist discussed with Vascular surgery at [facility] ([facility]), Dr. Laird, the surgeon reviewed images, recommended heparin gtt only. No interventions indicated at this time. -continue heparin infusion -monitor coags (8) Mitral regurgitation: Code(s): I34.0 - Nonrheumatic mitral (valve) insufficiency Status: Acute Assessment and Plan: Lasix IV Plan DVT prophylaxis: Heparin infusion Stress ulcer prophylaxis: Protonix IV Nutrition: Speech consult for swallow evaluation Code Status: Full code Subjective Date/time seen: 05/19/24 15:46 Interval history: Comfortable at bedside Review of Systems Review of Systems: All systems reviewed & are unremarkable except as noted in HPI and below (HPI) ROS unobtainable: Yes unobtainable due to endotracheal tube and unobtainable due to medical condition Exam Narrative: General: Patient is alert awake in no distress HEENT:? Pupils equal reactive, sclera is clear, ETT in place Neck:? Tracheostomy scar noted Respiratory:? Coarse breath sounds bilateral bases, adequate air entry, no wheezing Cardiac:? Irregularly irregular, rate controlled Abdomen:? Soft, nontender, nondistended, normoactive bowel sounds NG tube in place Extremities:? Palpable pedal pulses, left knee more boggy with surgical scar. Right knee erythematous, warm Neuro:? AO x3, moves all 4 extremities follow command Skin:? Erythematous skin on right knee, no other skin lesions noted Psych:? Normal speech and affect Const: General: comfortable and no acute distress Other: , male, ill appearing HENMT: Face/Nose/Sinus: Normal nares present Mouth: Yes dry mucous membranes Other: ETT in place Eyes: General: appearance normal, both eyes and all related structures Sclera: sclerae normal Pupils: Equal, round and reactive pupils present Other: pupils pinpoint. Resp: Effort & Inspection: normal respiratory effort Other: faint bibasilar crackles, no wheezing. tolerated vent well. Cardio: Rate: tachycardic Rhythm: abnormal rhythm Other: no murmur. GI: Other: abdomen soft, nondistended. Normoactive BS in all quadrants. Urinary Catheter: Urinary Catheter: patent and draining Skin: Other: ecchymosis in various stages of healing and erythema to bilateral knees, erythema worse compared to initial exam that took place post-intubation. no drainage. no other macular/erythematous patches. Neuro: Cranial nerves: Yes Equal, round and reactive pupils present Other: moving all extremities. reacts to pain. intubated/sedated. Extrem: Other: faintly palpable DP pulses bilaterally, R stronger than L. 2+ pitting edema to BLE, symmetric. Psych: Other: unable to assess Objective Data Vital Signs Vital Signs: Vital Signs - 24 hr 05/18/24 16:00 05/18/24 16:00 05/18/24 16:00 Temperature 99.5 F Pulse Rate 131 H 142 H Respiratory Rate 22 H Blood Pressure 128/115 H Pulse Oximetry 97 97 Oxygen Delivery Room Air Oxygen Flow Rate Fraction of Inspired Oxygen 05/18/24 17:27 05/18/24 18:00 05/18/24 18:00 Temperature Pulse Rate 187 H 128 H 128 H Respiratory Rate Blood Pressure 149/105 H 145/112 H Pulse Oximetry Oxygen Delivery Oxygen Flow Rate Fraction of Inspired Oxygen 05/18/24 18:00 05/18/24 20:00 05/18/24 20:00 Temperature 99.3 F 99.0 F Pulse Rate 128 H 107 H Respiratory Rate 25 H 18 Blood Pressure 124/112 H 142/103 H Pulse Oximetry 96 95 95 Oxygen Delivery Room Air Oxygen Flow Rate Fraction of Inspired Oxygen 05/18/24 20:00 05/18/24 20:00 05/18/24 20:06 Temperature Pulse Rate 107 H 109 H 113 H Respiratory Rate 20 Blood Pressure 142/103 H Pulse Oximetry Oxygen Delivery Oxygen Flow Rate Fraction of Inspired Oxygen 05/18/24 20:16 05/18/24 21:41 05/18/24 22:00 Temperature Pulse Rate 102 H 101 H 104 H Respiratory Rate 20 Blood Pressure 138/108 H Pulse Oximetry Oxygen Delivery Oxygen Flow Rate Fraction of Inspired Oxygen 05/18/24 22:00 05/18/24 22:00 05/19/24 00:00 Temperature Pulse Rate 104 H 104 H 85 Respiratory Rate 20 Blood Pressure 138/108 H 130/102 H Pulse Oximetry 98 Oxygen Delivery Oxygen Flow Rate Fraction of Inspired Oxygen 05/19/24 00:00 05/19/24 00:00 05/19/24 00:00 Temperature 98.3 F Pulse Rate 85 91 Respiratory Rate 24 H Blood Pressure 130/102 H Pulse Oximetry 97 97 Oxygen Delivery Nasal Cannula Oxygen Flow Rate 2 Fraction of Inspired Oxygen 05/19/24 01:15 05/19/24 01:15 05/19/24 02:00 Temperature Pulse Rate 77 77 88 Respiratory Rate 23 H Blood Pressure 133/96 H 133/96 H 132/101 H Pulse Oximetry 96 Oxygen Delivery Oxygen Flow Rate Fraction of Inspired Oxygen 05/19/24 02:00 05/19/24 02:02 05/19/24 02:02 Temperature Pulse Rate 88 79 Respiratory Rate 20 Blood Pressure Pulse Oximetry 97 Oxygen Delivery Nasal Cannula Oxygen Flow Rate 2 Fraction of Inspired Oxygen 28 05/19/24 02:14 05/19/24 03:08 05/19/24 03:28 Temperature Pulse Rate 76 85 Respiratory Rate 20 Blood Pressure Pulse Oximetry 97 Oxygen Delivery Nasal Cannula Oxygen Flow Rate 2 Fraction of Inspired Oxygen 05/19/24 04:00 05/19/24 04:07 05/19/24 04:28 Temperature 98.5 F Pulse Rate 83 92 89 Respiratory Rate 23 H Blood Pressure 139/94 H 139/94 H Pulse Oximetry 97 Oxygen Delivery Oxygen Flow Rate Fraction of Inspired Oxygen 05/19/24 05:52 05/19/24 06:00 05/19/24 06:23 Temperature Pulse Rate 91 82 86 Respiratory Rate Blood Pressure 153/97 H Pulse Oximetry 100 Oxygen Delivery Oxygen Flow Rate Fraction of Inspired Oxygen 05/19/24 08:00 05/19/24 08:00 05/19/24 08:00 Temperature 98.4 F Pulse Rate 87 87 Respiratory Rate 24 H Blood Pressure 139/98 H 139/98 H Pulse Oximetry 100 100 Oxygen Delivery Nasal Cannula Oxygen Flow Rate 2 Fraction of Inspired Oxygen 05/19/24 08:00 05/19/24 08:26 05/19/24 08:43 Temperature Pulse Rate 101 H 93 94 Respiratory Rate 20 Blood Pressure Pulse Oximetry 96 Oxygen Delivery Nasal Cannula Oxygen Flow Rate 2 Fraction of Inspired Oxygen 05/19/24 08:43 05/19/24 08:55 05/19/24 10:00 Temperature Pulse Rate 94 105 H 91 Respiratory Rate 20 20 Blood Pressure 129/53 L Pulse Oximetry Oxygen Delivery Oxygen Flow Rate Fraction of Inspired Oxygen 05/19/24 10:00 05/19/24 10:00 05/19/24 11:15 Temperature Pulse Rate 89 91 77 Respiratory Rate Blood Pressure 129/53 L Pulse Oximetry Oxygen Delivery Oxygen Flow Rate Fraction of Inspired Oxygen 05/19/24 11:24 05/19/24 12:00 05/19/24 12:00 Temperature 98 F Pulse Rate 77 86 Respiratory Rate 24 H Blood Pressure 134/84 Pulse Oximetry 100 100 Oxygen Delivery Nasal Cannula Oxygen Flow Rate 2 Fraction of Inspired Oxygen 05/19/24 12:00 05/19/24 12:45 05/19/24 13:23 Temperature Pulse Rate 74 86 73 Respiratory Rate 20 Blood Pressure 134/84 Pulse Oximetry 96 Oxygen Delivery Nasal Cannula Oxygen Flow Rate 2 Fraction of Inspired Oxygen 05/19/24 13:23 05/19/24 13:46 05/19/24 14:00 Temperature Pulse Rate 73 78 77 Respiratory Rate 20 20 Blood Pressure Pulse Oximetry Oxygen Delivery Oxygen Flow Rate Fraction of Inspired Oxygen 05/19/24 14:00 05/19/24 14:45 Temperature Pulse Rate 69 Respiratory Rate Blood Pressure 119/71 Pulse Oximetry Oxygen Delivery Oxygen Flow Rate Fraction of Inspired Oxygen Intake/Output Intake/Output: Intake & Output 05/16/24 05/17/24 05/18/24 05/19/24 23:59 23:59 23:59 23:59 Intake Total 2728.6 1503.9 911.5 866.6 Output Total 3900 1300 3500 800 Balance -1171.4 203.9 -2588.5 66.6 Meds/Results Medications: Active Medications Generic Name Dose Route Start Last Admin Trade Name Freq PRN Reason Stop Dose Admin Acetaminophen 650 mg 05/19/24 12:03 Acetaminophen 325 Mg Tablet PO Q6H PRN Mild Pain (1-3) or Fever Apixaban 5 mg 05/19/24 21:00 Apixaban 5 Mg Tablet PO Q12HR DAKSHA Dextrose 12.5 gm 05/15/24 19:27 Dextrose 50% 25 Gm/50 Ml Syringe IV PUSH PRN PRN Hypoglycemia Protocol Glucagon 1 mg 05/15/24 19:27 Glucagon For Inj 1 Mg Vial IM PRN PRN Hypoglycemia Protocol Glucose 15 gm 05/15/24 19:27 Glucose Oral Gel 15 Gm Of Glucse In 37.5 Gm Tube PO PRN PRN Hypoglycemia Protocol Doxycycline Hyclate 100 mg in 100 mls @ 100 mls/hr 05/14/24 19:00 05/19/24 06:44 Vibramycin 100 Mg/Ns 100 Ml IVPB 05/19/24 18:59 100 mls/hr Q12H DAKSHA Administration Cefepime HCl 2 gm in 50 mls @ 100 mls/hr 05/15/24 06:00 05/19/24 15:11 Maxipime 2 Gm/Ns 50 Ml IVPB 100 mls/hr Q8HR DAKSHA Administration Dextrose 1,000 mls @ 100 mls/hr 05/15/24 19:27 Dextrose 5% 1,000 Ml IVPB PRN PRN Hypoglycemia Protocol Ipratropium [place] 0.5 mg 05/15/24 14:00 05/19/24 13:22 Ipratropium Br 0.02% Inh Soln 0.5 Mg/2.5 Ml Vial INHALATION 0.5 mg Q6HRT DAKSHA Administration Levalbuterol HCl 0.63 mg 05/15/24 14:00 05/19/24 13:23 Levalbuterol Neb 1.25 Mg/3 Ml INHALATION 0.63 mg Q6HRT DAKSHA Administration Metoprolol Succinate 200 mg 05/20/24 09:00 Metoprolol Succinate Ext Rel 100 Mg Tabcr PO QAM DAKSHA Metoprolol Tartrate 5 mg 05/18/24 14:11 05/18/24 14:24 Metoprolol Tartrate Inj 5 Mg/5 Ml Vial IV PUSH 5 mg Q4H PRN Administration persistent tachycardia, >120 Metoprolol Tartrate 100 mg 05/18/24 21:00 05/19/24 08:26 Metoprolol Tartrate 50 Mg Tab PO 05/19/24 23:59 100 mg Q12HR DAKSHA Administration Pantoprazole Sodium 40 mg 05/20/24 09:00 Pantoprazole 40 Mg Tablet PO QAM DAKSHA Polyethylene Glycol 17 gm 05/18/24 08:04 Polyethylene Glycol 3350 17 Gm Powd.Pack PO QAM PRN COnstipation Sacubitril/Valsartan 1 tab 05/19/24 21:00 Sacubitril/Valsartan 24-26 Mg Tablet PO Q12HR DAKSHA Senna/Docusate Sodium 1 tab 05/18/24 08:04 Senna/Docusate Sodium Tablet PO DAILY PRN Constipation Sodium Chloride 10 ml 05/14/24 22:00 05/19/24 15:11 Central Line Flush IV PUSH 10 ml Q8HR DAKSHA Administration Sodium Chloride 20 ml 05/14/24 19:36 05/16/24 20:55 Central Line Flush IV PUSH 20 ml PRN PRN Administration after blood draws Radiology Results: ITS Impressions Abdomen/Pelvis CT 05/14/24 13:28 IMPRESSION: 1. Pulmonary edema. 2. Small pleural effusions. 3. Small volume of ascites. Head CT 05/14/24 15:43 IMPRESSION: 1. 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 2. Small lateral and third ventricles, which is a change from the prior exam. Shunt catheter unchanged in position. Chest CTA 05/14/24 15:49 IMPRESSION: 1. No evident pulmonary embolism. Sensitivity decreased in the segmental pulmonary arteries and nondiagnostic in many of the smaller subsegmental pulmonary arteries particularly in the lung bases due to combination of suboptimal contrast opacification, respiratory motion and streak artifact. 2. Small to moderate-sized bilateral pleural effusions with dependent compressive atelectasis. Difficult to exclude superimposed pneumonia although suspicion is low. 3. Cardiomegaly. 4. 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 Nasogastric tube in stomach. 2. Cardiomegaly. 3. Retrocardiac opacity left lower lung zone which could represent persistent small pleural effusion, atelectasis or pneumonia. Venous Doppler Study 05/15/24 12:29 IMPRESSION: 1. No deep venous thrombosis in either lower limb. Modified Barium Swallow 05/18/24 15:18 IMPRESSION: 1. Normal modified barium swallow. 2. Please refer to the speech therapy report for recommendations. Chest X-Ray 05/19/24 06:44 Impression: Clear lungs. Labs Labs: Laboratory Results - last 24 hr 05/15/24 05/18/24 05/19/24 10:52 18:27 01:23 WBC RBC Hgb Hct MCV MCH MCHC RDW Plt Count MPV APTT 44.2 H 143.5 H Sodium Potassium Chloride Carbon Dioxide Anion Gap BUN Creatinine Estim Creat Clear Calc Estimated GFR Glucose Calcium Magnesium Total Bilirubin AST ALT Alkaline Phosphatase Total Protein Albumin Urine Osmolality 735 05/19/24 05/19/24 06:05 12:56 WBC 13.1 H RBC 4.20 L Hgb 13.8 L Hct 41.6 L MCV 99.0 MCH 32.9 MCHC 33.2 RDW 13.8 Plt Count 240 MPV 11.1 H APTT 55.8 H 89.4 H Sodium 135 L Potassium 3.8 Chloride 95 L Carbon Dioxide 32 H Anion Gap 8 BUN 26 H D Creatinine 0.66 L Estim Creat Clear Calc 119 Estimated GFR > 60 Glucose 109 Calcium 9.0 Magnesium 1.7 Total Bilirubin 1.1 AST 210 H ALT 157 H Alkaline Phosphatase 81 Total Protein 7.0 Albumin 3.6 Urine Osmolality Quality VTE Prophylaxis VTE prophylaxis: pharmacologic ordered
[2024-05-19] MEDS: SACUBITRIL/VALSARTAN 24-26 MG TABLET 1 TAB PO (20:47)
[2024-05-19] MEDS: APIXABAN 5 MG TABLET PO (20:47)
[2024-05-20] VITALS (24 sets, daily range): BP systolic 133–148; BP diastolic 88–101; PULSE 79–121; RESP 14–24; TEMP 36.6–37.1; O2SAT 95–100
[2024-05-20] MEDS: IPRATROPIUM BR 0.02% INH SOLN 0.5 MG/2.5 ML VIAL INHALATION ×4 (01:47→19:44)
[2024-05-20] MEDS: LEVALBUTEROL NEB 1.25 MG/3 ML 0.63 MG INHALATION ×4 (01:47→19:44)
[2024-05-20 04:42] LABS: Basophils Absolute Auto 0.1 K/mm3 (0.0-0.1); Basophils Percent Auto 0.4 % (0.2-1.2); Eosinophils Absolute Auto 0.4 K/mm3 (0-0.3); Eosinophils Percent Auto 2.7 % (0-4.4); Hematocrit 39.6 % (42.0-52.0); Hemoglobin 13.5 g/dL (14.0-18.0); Immature Granulocyte Absolute 0.08 K/mm3 (0.00-0.031); Immature Granulocyte Percent A 0.6 % (0-0.5); Lymphocytes Absolute Auto 1.17 K/mm3 (0.9-3.2); Lymphocytes Percent Auto 8.4 % (18.3-44.2); Mean Corpuscular HGB Conc 34.1 g/dl (32-36); Mean Corpuscular Hemoglobin 32.9 pg (26-34); Mean Corpuscular Volume 96.6 fl (80-100); Mean Platelet Volume 10.5 fl (7.4-10.4); Monocytes Absolute Auto 2.2 K/mm3 (0.1-0.6); Monocytes Percent Auto 15.4 % (2.6-8.5); Neutrophils Absolute Auto 10.2 K/mm3 (1.3-6.7); Neutrophils Percent Auto 72.5 % (45.5-73.1); Platelet Count Result 219 k/mm3 (150-375); Red Cell Distribution Width 13.7 % (11.5-14.5)
[2024-05-20 04:49] LABS: Alanine Aminotransferase 147 U/L (6-50); Albumin Level 3.5 g/dL (3.5-5.1); Alkaline Phosphatase 74 U/L (38-126); Anion Gap 8 mmol/L (4-12); Aspartate Amino Transferase 131 U/L (17-59); Bilirubin,Total 0.9 mg/dL (0.2-1.3); Blood Urea Nitrogen 20 mg/dL (9-20); Calcium 8.6 mg/dL (8.4-10.2); Carbon Dioxide 30 mmol/L (22-30); Chloride 95 mmol/L (98-107); Estimated CRCL calculation 150 ml/min; Estimated Glomerular Filt Rate > 60; Glucose 114 mg/dL (65-110); Lactic Acid Reflex 1.1 mmol/L (0.7-2.0); Magnesium 1.7 mg/dL (1.6-2.3); Potassium 3.6 mmol/L (3.4-5.0); Sodium 133 mmol/L (137-145)
[2024-05-20] MEDS: CEFEPIME 2 GM/NS 50 ML 2 GM/50 ML BAG IVPB ×3 (05:25→22:29)
[2024-05-20] MEDS: APIXABAN 5 MG TABLET PO ×2 (09:01→20:27)
[2024-05-20] MEDS: FUROSEMIDE INJ 40 MG/4 ML VIAL IV PUSH (09:01)
[2024-05-20] MEDS: PANTOPRAZOLE 40 MG TABLET PO (09:01)
[2024-05-20] MEDS: SACUBITRIL/VALSARTAN 24-26 MG TABLET 1 TAB PO ×2 (09:01→20:27)
[2024-05-20] MEDS: METOPROLOL SUCCINATE EXT REL 100 MG TABCR 200 MG PO (09:01)
--- NOTE | 2024-05-20 11:59 | PM.PNCARD ---
Progress Note: A&P Assessment and Plan (1) Atrial fibrillation with rapid ventricular response: Code(s): I48.91 - Unspecified atrial fibrillation Status: Acute (2) Mitral regurgitation: Code(s): I34.0 - Nonrheumatic mitral (valve) insufficiency Status: Acute (3) Systolic heart failure: Code(s): I50.20 - Unspecified systolic (congestive) heart failure Status: Acute (4) Pulmonary hypertension: Code(s): I27.20 - Pulmonary hypertension, unspecified Status: Acute Plan 48-year-old man with traumatic brain injury, brain aneurysm status post surgery (at age 12), hypertension, ulcerative colitis, and seizures initially presented with worsening shortness of breath and generalized weakness Acute chronic systolic heart failure -start Lasix 40 mg IV daily and monitor sodium levels closely -previously was cautious with diuretics while patient was hyponatremic however that appears to have mostly resolved -continue Entresto 24-26 mg p.o. b.i.d. and Toprol 200 mg p.o. daily -will add Jardiance 10 p.o. daily Paroxysmal atrial fibrillation -Eliquis 5 mg p.o. b.i.d. and Toprol 200 mg p.o. daily -he still continues to have rapid ventricular rates which may improve with diuresis -and rates are not improving, would proceed with transesophageal echocardiogram to rule out left atrial appendage thrombus and attempt cardioversion -while cardioversion may not work secondary to his severely dilated left atrium, the transesophageal echocardiogram would rule out left atrial appendage thrombus and allowed us to start him on long-term oral amiodarone until he sees electrophysiology outpatient for possible catheter ablation -in meantime will give him a dose of digoxin 250 mcg IV push x1 Moderate to severe mitral regurgitation -will re-evaluate once he is euvolemic and on guideline directed medical therapy in outpatient setting Pulmonary hypertension -most likely secondary to left-sided heart disease and will re-evaluate once he is euvolemic and has been trialed on guideline directed medical therapy in the outpatient setting Subjective Date/time seen: 05/20/24 11:59 Interval history: Denies chest pain or shortness of breath. Is on 2 L nasal cannula. Swelling has resolved and lower extremities. Still has some mild swelling in the upper thighs as well as abdomen. Review of Systems Cardiovascular: Cardiovascular: Reports as per HPI Respiratory: Respiratory: Reports as per HPI Exam Const: General: comfortable HENMT: Mouth: Yes moist mucous membranes Eyes: EOM: EOMs intact bilaterally Neck: Neck: no JVD Resp: Effort & Inspection: normal respiratory effort Auscultation: clear to auscultation bilaterally Cardio: Rate: tachycardic Rhythm: abnormal rhythm Heart sounds: Murmur heart sound present Other: Grade 3 holosystolic murmur in the apex GI: GI Palp: Yes Soft to palpation Extrem: General: no pedal edema Objective Data Vital Signs Vital Signs: Vital Signs - 24 hr 05/19/24 12:00 05/19/24 12:00 05/19/24 12:00 Temperature 36.6 C Pulse Rate 86 74 Respiratory Rate 24 H Blood Pressure 134/84 Pulse Oximetry 100 100 Oxygen Delivery Nasal Cannula Oxygen Flow Rate 2 Fraction of Inspired Oxygen 05/19/24 12:45 05/19/24 13:23 05/19/24 13:23 Temperature Pulse Rate 86 73 73 Respiratory Rate 20 20 Blood Pressure 134/84 Pulse Oximetry 96 Oxygen Delivery Nasal Cannula Oxygen Flow Rate 2 Fraction of Inspired Oxygen 05/19/24 13:46 05/19/24 14:00 05/19/24 14:00 Temperature Pulse Rate 78 77 Respiratory Rate 20 Blood Pressure 119/71 Pulse Oximetry Oxygen Delivery Oxygen Flow Rate Fraction of Inspired Oxygen 05/19/24 14:45 05/19/24 16:00 05/19/24 16:00 Temperature 36.7 C Pulse Rate 69 82 79 Respiratory Rate 22 H Blood Pressure 127/84 Pulse Oximetry 100 Oxygen Delivery Oxygen Flow Rate Fraction of Inspired Oxygen 05/19/24 16:00 05/19/24 18:00 05/19/24 20:00 Temperature 36.9 C Pulse Rate 94 103 H Respiratory Rate 24 H Blood Pressure 140/99 H Pulse Oximetry 100 96 Oxygen Delivery Nasal Cannula Oxygen Flow Rate 2 Fraction of Inspired Oxygen 05/19/24 20:00 05/19/24 20:00 05/19/24 20:02 Temperature Pulse Rate 95 103 H Respiratory Rate 18 Blood Pressure Pulse Oximetry 97 97 Oxygen Delivery Nasal Cannula Nasal Cannula Oxygen Flow Rate 2 2 Fraction of Inspired Oxygen 28 05/19/24 20:02 05/19/24 20:15 05/19/24 20:47 Temperature Pulse Rate 90 93 103 H Respiratory Rate 18 18 Blood Pressure Pulse Oximetry Oxygen Delivery Oxygen Flow Rate Fraction of Inspired Oxygen 05/19/24 22:00 05/19/24 23:51 05/20/24 00:00 Temperature 36.4 C L Pulse Rate 94 93 93 Respiratory Rate 24 H 24 H Blood Pressure 150/112 H Pulse Oximetry 100 100 Oxygen Delivery Nasal Cannula Oxygen Flow Rate 2 Fraction of Inspired Oxygen 28 05/20/24 00:00 05/20/24 01:48 05/20/24 01:58 Temperature Pulse Rate 93 79 96 Respiratory Rate 14 14 Blood Pressure Pulse Oximetry Oxygen Delivery Oxygen Flow Rate Fraction of Inspired Oxygen 05/20/24 02:00 05/20/24 03:35 05/20/24 04:00 Temperature 36.9 C Pulse Rate 94 99 90 Respiratory Rate 24 H 24 H Blood Pressure 133/96 H Pulse Oximetry 100 100 Oxygen Delivery Nasal Cannula Oxygen Flow Rate 2 Fraction of Inspired Oxygen 28 05/20/24 04:00 05/20/24 05:54 05/20/24 07:32 Temperature Pulse Rate 90 92 Respiratory Rate Blood Pressure Pulse Oximetry 95 Oxygen Delivery Nasal Cannula Oxygen Flow Rate 2 Fraction of Inspired Oxygen 05/20/24 07:32 05/20/24 07:46 05/20/24 08:00 Temperature 36.9 C Pulse Rate 100 103 H 110 H Respiratory Rate 20 20 24 H Blood Pressure 148/93 H Pulse Oximetry 98 Oxygen Delivery Oxygen Flow Rate Fraction of Inspired Oxygen 05/20/24 08:00 05/20/24 08:00 05/20/24 09:01 Temperature Pulse Rate 114 H 121 H 114 H Respiratory Rate 24 H Blood Pressure Pulse Oximetry 98 Oxygen Delivery Nasal Cannula Oxygen Flow Rate 2 Fraction of Inspired Oxygen 05/20/24 10:00 Temperature Pulse Rate 114 H Respiratory Rate Blood Pressure Pulse Oximetry Oxygen Delivery Oxygen Flow Rate Fraction of Inspired Oxygen Intake/Output Intake/Output: Intake & Output 05/17/24 05/18/24 05/19/24 05/20/24 23:59 23:59 23:59 23:59 Intake Total 1503.9 911.5 1636.6 370 Output Total 1300 3500 1450 3550 Balance 203.9 -2588.5 186.6 -3180 Meds/Results Medications: Active Medications Generic Name Dose Route Start Last Admin Trade Name Freq PRN Reason Stop Dose Admin Acetaminophen 650 mg 05/19/24 12:03 Acetaminophen 325 Mg Tablet PO Q6H PRN Mild Pain (1-3) or Fever Apixaban 5 mg 05/19/24 21:00 05/20/24 09:01 Apixaban 5 Mg Tablet PO 5 mg Q12HR DAKSHA Administration Dextrose 12.5 gm 05/15/24 19:27 Dextrose 50% 25 Gm/50 Ml Syringe IV PUSH PRN PRN Hypoglycemia Protocol Furosemide 40 mg 05/21/24 09:00 Furosemide Inj 40 Mg/4 Ml Vial IV PUSH DAILY DAKSHA Glucagon 1 mg 05/15/24 19:27 Glucagon For Inj 1 Mg Vial IM PRN PRN Hypoglycemia Protocol Glucose 15 gm 05/15/24 19:27 Glucose Oral Gel 15 Gm Of Glucse In 37.5 Gm Tube PO PRN PRN Hypoglycemia Protocol Cefepime HCl 2 gm in 50 mls @ 100 mls/hr 05/15/24 06:00 05/20/24 05:55 Maxipime 2 Gm/Ns 50 Ml IVPB 05/21/24 22:29 Infused Q8HR DAKSHA Infusion Dextrose 1,000 mls @ 100 mls/hr 05/15/24 19:27 Dextrose 5% 1,000 Ml IVPB PRN PRN Hypoglycemia Protocol Ipratropium [place] 0.5 mg 05/15/24 14:00 05/20/24 07:31 Ipratropium Br 0.02% Inh Soln 0.5 Mg/2.5 Ml Vial INHALATION 0.5 mg Q6HRT DAKSHA Administration Levalbuterol HCl 0.63 mg 05/15/24 14:00 05/20/24 07:31 Levalbuterol Neb 1.25 Mg/3 Ml INHALATION 0.63 mg Q6HRT DAKSHA Administration Metoprolol Succinate 200 mg 05/20/24 09:00 05/20/24 09:01 Metoprolol Succinate Ext Rel 100 Mg Tabcr PO 200 mg QAM DAKSHA Administration Metoprolol Tartrate 5 mg 05/18/24 14:11 05/18/24 14:24 Metoprolol Tartrate Inj 5 Mg/5 Ml Vial IV PUSH 5 mg Q4H PRN Administration persistent tachycardia, >120 Pantoprazole Sodium 40 mg 05/20/24 09:00 05/20/24 09:01 Pantoprazole 40 Mg Tablet PO 40 mg QAM DAKSHA Administration Polyethylene Glycol 17 gm 05/18/24 08:04 Polyethylene Glycol 3350 17 Gm Powd.Pack PO QAM PRN COnstipation Sacubitril/Valsartan 1 tab 05/19/24 21:00 05/20/24 09:01 Sacubitril/Valsartan 24-26 Mg Tablet PO 1 tab Q12HR DAKSHA Administration Senna/Docusate Sodium 1 tab 05/18/24 08:04 Senna/Docusate Sodium Tablet PO DAILY PRN Constipation Radiology Results: ITS Impressions Abdomen/Pelvis CT 05/14/24 13:28 IMPRESSION: 1. Pulmonary edema. 2. Small pleural effusions. 3. Small volume of ascites. Head CT 05/14/24 15:43 IMPRESSION: 1. 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 2. Small lateral and third ventricles, which is a change from the prior exam. Shunt catheter unchanged in position. Chest CTA 05/14/24 15:49 IMPRESSION: 1. No evident pulmonary embolism. Sensitivity decreased in the segmental pulmonary arteries and nondiagnostic in many of the smaller subsegmental pulmonary arteries particularly in the lung bases due to combination of suboptimal contrast opacification, respiratory motion and streak artifact. 2. Small to moderate-sized bilateral pleural effusions with dependent compressive atelectasis. Difficult to exclude superimposed pneumonia although suspicion is low. 3. Cardiomegaly. 4. 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 Nasogastric tube in stomach. 2. Cardiomegaly. 3. Retrocardiac opacity left lower lung zone which could represent persistent small pleural effusion, atelectasis or pneumonia. Venous Doppler Study 05/15/24 12:29 IMPRESSION: 1. No deep venous thrombosis in either lower limb. Modified Barium Swallow 05/18/24 15:18 IMPRESSION: 1. Normal modified barium swallow. 2. Please refer to the speech therapy report for recommendations. Chest X-Ray 05/20/24 06:14 Impression: Probable bibasilar mild pulmonary edema, left worse than right. Correlate clinically for pneumonia. Labs Labs: Laboratory Results - last 24 hr 05/15/24 05/19/24 05/20/24 10:52 12:56 04:11 WBC 14.0 H RBC 4.10 L Hgb 13.5 L Hct 39.6 L MCV 96.6 MCH 32.9 MCHC 34.1 RDW 13.7 Plt Count 219 MPV 10.5 H Immature Gran % (Auto) 0.6 H Neut % (Auto) 72.5 Lymph % (Auto) 8.4 L [place] % (Auto) 15.4 H Eos % (Auto) 2.7 Baso % (Auto) 0.4 Lymph # (Auto) 1.17 [place] # (Auto) 2.2 H Eos # (Auto) 0.4 H Baso # (Auto) 0.1 Abs Immat Gran (auto) 0.08 H Absolute Neuts (auto) 10.2 H Absolute Nucleated RBC 0.000 Nucleated RBC % 0.0 APTT 89.4 H Sodium Potassium Chloride Carbon Dioxide Anion Gap BUN Creatinine Estim Creat Clear Calc Estimated GFR Glucose Serum Osmolality 257 L Lactic Acid Calcium Magnesium Total Bilirubin AST ALT Alkaline Phosphatase Total Protein Albumin Urine Osmolality 735 05/20/24 04:34 WBC RBC Hgb Hct MCV MCH MCHC RDW Plt Count MPV Immature Gran % (Auto) Neut % (Auto) Lymph % (Auto) [place] % (Auto) Eos % (Auto) Baso % (Auto) Lymph # (Auto) [place] # (Auto) Eos # (Auto) Baso # (Auto) Abs Immat Gran (auto) Absolute Neuts (auto) Absolute Nucleated RBC Nucleated RBC % APTT Sodium 133 L Potassium 3.6 Chloride 95 L Carbon Dioxide 30 Anion Gap 8 BUN 20 Creatinine 0.51 L Estim Creat Clear Calc 150 Estimated GFR > 60 Glucose 114 H Serum Osmolality Lactic Acid 1.1 Calcium 8.6 Magnesium 1.7 Total Bilirubin 0.9 AST 131 H ALT 147 H Alkaline Phosphatase 74 Total Protein 7.0 Albumin 3.5 Urine Osmolality
[2024-05-20] MEDS: DIGOXIN INJ 250 MCG/ML 2 ML AMP (*BKC) IV PUSH (13:28)
--- NOTE | 2024-05-20 15:45 | P.PNIM_ITS ---
Progress Note: A&P Assessment and Plan (1) Sepsis: Qualifiers: Sepsis type: sepsis due to unspecified organism Sepsis acute organ dysfunction status: with acute organ dysfunction Severe sepsis acute organ dysfunction type: encephalopathy Severe sepsis shock status: without septic shock Qualified Code(s): A41.9 - Sepsis, unspecified organism; R65.20 - Severe sepsis without septic shock; G93.41 - Metabolic encephalopathy Code(s): A41.9 - Sepsis, unspecified organism Status: Acute Assessment and Plan: Patient presented with shortness of breath, generalized weakness, acute altered mental status -tachycardia, elevated WBC count -chest CTA likely pneumonia, possible cellulitis of the right knee -MRSA screen negative, discontinue vancomycin (05/16) -blood pressures have remained stable, patient not requiring pressors -05/14: Blood cultures: Primary cultures are negative -05/15: Sputum cultures are negative -05/15: Bilateral lower extremity venous Dopplers were negative for DVT bilaterally Completed Doxycycline Day 08/21 Cefepime monitor (2) Acute respiratory failure: Code(s): J96.00 - Acute respiratory failure, unspecified whether with hypoxia or hypercapnia Status: Acute Assessment and Plan: Acute respiratory failure could be multifactorial, inflammation RVR, seizures, chronic encephalomalacia, -05/14: intubated in the ER - 05/18 extubated Continue bronchodilators Lasix IV 05/14/2024 CTA chest: negative PE and showed bilateral pleural effusions 05/20/24 showed Pulm edema Continue Lasix (3) Acute alteration in mental status: Code(s): R41.82 - Altered mental status, unspecified Status: Acute Assessment and Plan: RESOLVED Elevated LFTs, could be related to hypoxia, hyponatremia -ammonia levels were normal, -patient currently following commands, will continue to monitor 05/14/2024 CT brain: IMPRESSION: 1. 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 2. Small lateral and third ventricles, which is a change from the prior exam. Shunt catheter unchanged in position. (4) Pneumonia: Qualifiers: Pneumonia type: due to unspecified organism Laterality: bilateral Lung location: lower lobe of lung Qualified Code(s): J18.9 - Pneumonia, unspecified organism Code(s): J18.9 - Pneumonia, unspecified organism Status: Acute Assessment and Plan: Continue antibiotics as above Sputum cultures negative (5) Hyponatremia: Code(s): E87.1 - Hypo-osmolality and hyponatremia Status: Acute Assessment and Plan: Hyponatremia, multifactorial, could be related to pneumonia, SIADH, history of TBI, patient does have a history of hyponatremia in 2019, 2019, 2022 Improved. Now off of all fluids Monitor Nephrology following (6) Atrial fibrillation with rapid ventricular response: Code(s): I48.91 - Unspecified atrial fibrillation Status: Acute Assessment and Plan: Ventricular rate improved now. Continue metoprolol and heparin infusion.. Will switch to p.o. anticoagulation once p.o. intake is unsure Cardiology following 05/15/2024 echocardiogram Summary 1. Complete two-dimensional, color flow and Doppler transthoracic echocardiogram is performed. 2. Left ventricular chamber dimension is mildly enlarged. 3. Left ventricular systolic function is moderately reduced, estimated at 35- 40%. 4. There is mildly increased left ventricular wall thickness. 5. The left ventricular diastolic function is abnormal. 6. Left atrial chamber dimension is severely enlarged. 7. Right atrial chamber dimension is mildly enlarged. 8. There is moderate to severe mitral valve regurgitation. 9. There is mild tricuspid valve regurgitation. 10. Severe pulmonary hypertension, estimated pulmonary arterial systolic pressure is 72 mmHg. 11. There is mild pulmonic regurgitation. 12. Pleural effusion seen. (7) Acute brachiocephalic vein thrombosis: Code(s): I82.290 - Acute embolism and thrombosis of other thoracic veins Status: Acute Assessment and Plan: Patient's face was cyanotic, CTA chest showed complete occlusion of distal left brachiocephalic vein, -hospitalist discussed with Vascular surgery at [facility] ([facility]), Dr. Laird, the surgeon reviewed images, recommended heparin gtt only. No interventions indicated at this time. -s/p Heparin infusion, now on Eliquis -monitor coags (8) Mitral regurgitation: Code(s): I34.0 - Nonrheumatic mitral (valve) insufficiency Status: Acute Assessment and Plan: Lasix IV Plan DVT prophylaxis: Eliquis Stress ulcer prophylaxis: Protonix IV Nutrition: Speech consult for swallow evaluation Code Status: Full code Subjective Date/time seen: 05/20/24 15:45 Interval history: Comfortable at bedside and feeling much better Consulted hematology about hypercoagulable studies for brachiocephalic vein thrombosis Review of Systems Review of Systems: All systems reviewed & are unremarkable except as noted in HPI and below (HPI) ROS unobtainable: Yes unobtainable due to endotracheal tube and unobtainable due to medical condition Exam Narrative: General: Patient is alert awake in no distress HEENT:? Pupils equal reactive, sclera is clear, ETT in place Neck:? Tracheostomy scar noted Respiratory:? Coarse breath sounds bilateral bases, adequate air entry, no wheezing Cardiac:? Irregularly irregular, rate controlled Abdomen:? Soft, nontender, nondistended, normoactive bowel sounds NG tube in place Extremities:? Palpable pedal pulses, left knee more boggy with surgical scar. Right knee erythematous, warm Neuro:? AO x3, moves all 4 extremities follow command Skin:? Erythematous skin on right knee, no other skin lesions noted Psych:? Normal speech and affect Const: General: comfortable and no acute distress Other: , male, ill appearing HENMT: Face/Nose/Sinus: Normal nares present Mouth: Yes dry mucous membranes Other: ETT in place Eyes: General: appearance normal, both eyes and all related structures Sclera: sclerae normal Pupils: Equal, round and reactive pupils present Other: pupils pinpoint. Resp: Effort & Inspection: normal respiratory effort Other: faint bibasilar crackles, no wheezing. tolerated vent well. Cardio: Rate: tachycardic Rhythm: abnormal rhythm Other: no murmur. GI: Other: abdomen soft, nondistended. Normoactive BS in all quadrants. Urinary Catheter: Urinary Catheter: patent and draining Skin: Other: ecchymosis in various stages of healing and erythema to bilateral knees, erythema worse compared to initial exam that took place post-intubation. no drainage. no other macular/erythematous patches. Neuro: Cranial nerves: Yes Equal, round and reactive pupils present Other: moving all extremities. reacts to pain. intubated/sedated. Extrem: Other: faintly palpable DP pulses bilaterally, R stronger than L. 2+ pitting edema to BLE, symmetric. Psych: Other: unable to assess Objective Data Vital Signs Vital Signs: Vital Signs - 24 hr 05/19/24 16:00 05/19/24 16:00 05/19/24 16:00 Temperature 98.1 F Pulse Rate 82 79 Respiratory Rate 22 H Blood Pressure 127/84 Pulse Oximetry 100 100 Oxygen Delivery Nasal Cannula Oxygen Flow Rate 2 Fraction of Inspired Oxygen 05/19/24 18:00 05/19/24 20:00 05/19/24 20:00 Temperature 98.5 F Pulse Rate 94 103 H 95 Respiratory Rate 24 H 18 Blood Pressure 140/99 H Pulse Oximetry 96 97 Oxygen Delivery Nasal Cannula Oxygen Flow Rate 2 Fraction of Inspired Oxygen 28 05/19/24 20:00 05/19/24 20:02 05/19/24 20:02 Temperature Pulse Rate 103 H 90 Respiratory Rate 18 Blood Pressure Pulse Oximetry 97 Oxygen Delivery Nasal Cannula Oxygen Flow Rate 2 Fraction of Inspired Oxygen 05/19/24 20:15 05/19/24 20:47 05/19/24 22:00 Temperature Pulse Rate 93 103 H 94 Respiratory Rate 18 Blood Pressure Pulse Oximetry Oxygen Delivery Oxygen Flow Rate Fraction of Inspired Oxygen 05/19/24 23:51 05/20/24 00:00 05/20/24 00:00 Temperature 97.5 F L Pulse Rate 93 93 93 Respiratory Rate 24 H 24 H Blood Pressure 150/112 H Pulse Oximetry 100 100 Oxygen Delivery Nasal Cannula Oxygen Flow Rate 2 Fraction of Inspired Oxygen 28 05/20/24 01:48 05/20/24 01:58 05/20/24 02:00 Temperature Pulse Rate 79 96 94 Respiratory Rate 14 14 Blood Pressure Pulse Oximetry Oxygen Delivery Oxygen Flow Rate Fraction of Inspired Oxygen 05/20/24 03:35 05/20/24 04:00 05/20/24 04:00 Temperature 98.5 F Pulse Rate 99 90 90 Respiratory Rate 24 H 24 H Blood Pressure 133/96 H Pulse Oximetry 100 100 Oxygen Delivery Nasal Cannula Oxygen Flow Rate 2 Fraction of Inspired Oxygen 28 05/20/24 05:54 05/20/24 07:32 05/20/24 07:32 Temperature Pulse Rate 92 100 Respiratory Rate 20 Blood Pressure Pulse Oximetry 95 Oxygen Delivery Nasal Cannula Oxygen Flow Rate 2 Fraction of Inspired Oxygen 05/20/24 07:46 05/20/24 08:00 05/20/24 08:00 Temperature 98.4 F Pulse Rate 103 H 110 H 114 H Respiratory Rate 20 24 H 24 H Blood Pressure 148/93 H Pulse Oximetry 98 98 Oxygen Delivery Nasal Cannula Oxygen Flow Rate 2 Fraction of Inspired Oxygen 28 05/20/24 08:00 05/20/24 09:01 05/20/24 10:00 Temperature Pulse Rate 121 H 114 H 114 H Respiratory Rate Blood Pressure Pulse Oximetry Oxygen Delivery Oxygen Flow Rate Fraction of Inspired Oxygen 05/20/24 12:00 05/20/24 12:00 05/20/24 12:00 Temperature 98.7 F Pulse Rate 114 H 111 H 111 H Respiratory Rate 24 H 24 H Blood Pressure 142/101 H Pulse Oximetry 99 99 Oxygen Delivery Nasal Cannula Oxygen Flow Rate 2 Fraction of Inspired Oxygen 28 05/20/24 13:28 05/20/24 13:44 05/20/24 14:00 Temperature Pulse Rate 111 H 104 H 110 H Respiratory Rate 20 20 Blood Pressure Pulse Oximetry Oxygen Delivery Oxygen Flow Rate Fraction of Inspired Oxygen Intake/Output Intake/Output: Intake & Output 05/17/24 05/18/24 05/19/24 05/20/24 23:59 23:59 23:59 23:59 Intake Total 1503.9 911.5 1636.6 370 Output Total 1300 3500 1450 3550 Balance 203.9 -2588.5 186.6 -3180 Meds/Results Medications: Active Medications Generic Name Dose Route Start Last Admin Trade Name Freq PRN Reason Stop Dose Admin Acetaminophen 650 mg 05/19/24 12:03 Acetaminophen 325 Mg Tablet PO Q6H PRN Mild Pain (1-3) or Fever Apixaban 5 mg 05/19/24 21:00 05/20/24 09:01 Apixaban 5 Mg Tablet PO 5 mg Q12HR DAKSHA Administration Dextrose 12.5 gm 05/15/24 19:27 Dextrose 50% 25 Gm/50 Ml Syringe IV PUSH PRN PRN Hypoglycemia Protocol Empagliflozin 10 mg 05/21/24 09:00 Empagliflozin 10 Mg Tablet PO DAILY DAKSHA Furosemide 40 mg 05/21/24 09:00 Furosemide Inj 40 Mg/4 Ml Vial IV PUSH DAILY DAKSHA Glucagon 1 mg 05/15/24 19:27 Glucagon For Inj 1 Mg Vial IM PRN PRN Hypoglycemia Protocol Glucose 15 gm 05/15/24 19:27 Glucose Oral Gel 15 Gm Of Glucse In 37.5 Gm Tube PO PRN PRN Hypoglycemia Protocol Cefepime HCl 2 gm in 50 mls @ 100 mls/hr 05/15/24 06:00 05/20/24 13:29 Maxipime 2 Gm/Ns 50 Ml IVPB 05/21/24 22:29 100 mls/hr Q8HR DAKSHA Administration Dextrose 1,000 mls @ 100 mls/hr 05/15/24 19:27 Dextrose 5% 1,000 Ml IVPB PRN PRN Hypoglycemia Protocol Ipratropium [place] 0.5 mg 05/15/24 14:00 05/20/24 13:43 Ipratropium Br 0.02% Inh Soln 0.5 Mg/2.5 Ml Vial INHALATION 0.5 mg Q6HRT DAKSHA Administration Levalbuterol HCl 0.63 mg 05/15/24 14:00 05/20/24 13:42 Levalbuterol Neb 1.25 Mg/3 Ml INHALATION 0.63 mg Q6HRT DAKSHA Administration Metoprolol Succinate 200 mg 05/20/24 09:00 05/20/24 09:01 Metoprolol Succinate Ext Rel 100 Mg Tabcr PO 200 mg QAM DAKSHA Administration Metoprolol Tartrate 5 mg 05/18/24 14:11 05/18/24 14:24 Metoprolol Tartrate Inj 5 Mg/5 Ml Vial IV PUSH 5 mg Q4H PRN Administration persistent tachycardia, >120 Pantoprazole Sodium 40 mg 05/20/24 09:00 05/20/24 09:01 Pantoprazole 40 Mg Tablet PO 40 mg QAM DAKSHA Administration Polyethylene Glycol 17 gm 05/18/24 08:04 Polyethylene Glycol 3350 17 Gm Powd.Pack PO QAM PRN COnstipation Sacubitril/Valsartan 1 tab 05/19/24 21:00 05/20/24 09:01 Sacubitril/Valsartan 24-26 Mg Tablet PO 1 tab Q12HR DAKSHA Administration Senna/Docusate Sodium 1 tab 05/18/24 08:04 Senna/Docusate Sodium Tablet PO DAILY PRN Constipation Radiology Results: ITS Impressions Abdomen/Pelvis CT 05/14/24 13:28 IMPRESSION: 1. Pulmonary edema. 2. Small pleural effusions. 3. Small volume of ascites. Head CT 05/14/24 15:43 IMPRESSION: 1. 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 2. Small lateral and third ventricles, which is a change from the prior exam. Shunt catheter unchanged in position. Chest CTA 05/14/24 15:49 IMPRESSION: 1. No evident pulmonary embolism. Sensitivity decreased in the segmental pulmonary arteries and nondiagnostic in many of the smaller subsegmental pulmonary arteries particularly in the lung bases due to combination of suboptimal contrast opacification, respiratory motion and streak artifact. 2. Small to moderate-sized bilateral pleural effusions with dependent compressive atelectasis. Difficult to exclude superimposed pneumonia although suspicion is low. 3. Cardiomegaly. 4. 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 Nasogastric tube in stomach. 2. Cardiomegaly. 3. Retrocardiac opacity left lower lung zone which could represent persistent small pleural effusion, atelectasis or pneumonia. Venous Doppler Study 05/15/24 12:29 IMPRESSION: 1. No deep venous thrombosis in either lower limb. Modified Barium Swallow 05/18/24 15:18 IMPRESSION: 1. Normal modified barium swallow. 2. Please refer to the speech therapy report for recommendations. Chest X-Ray 05/20/24 06:14 Impression: Probable bibasilar mild pulmonary edema, left worse than right. Correlate clinically for pneumonia. Labs Labs: Laboratory Results - last 24 hr 05/15/24 05/20/24 05/20/24 10:52 04:11 04:34 WBC 14.0 H RBC 4.10 L Hgb 13.5 L Hct 39.6 L MCV 96.6 MCH 32.9 MCHC 34.1 RDW 13.7 Plt Count 219 MPV 10.5 H Immature Gran % (Auto) 0.6 H Neut % (Auto) 72.5 Lymph % (Auto) 8.4 L [place] % (Auto) 15.4 H Eos % (Auto) 2.7 Baso % (Auto) 0.4 Lymph # (Auto) 1.17 [place] # (Auto) 2.2 H Eos # (Auto) 0.4 H Baso # (Auto) 0.1 Abs Immat Gran (auto) 0.08 H Absolute Neuts (auto) 10.2 H Absolute Nucleated RBC 0.000 Nucleated RBC % 0.0 Sodium 133 L Potassium 3.6 Chloride 95 L Carbon Dioxide 30 Anion Gap 8 BUN 20 Creatinine 0.51 L Estim Creat Clear Calc 150 Estimated GFR > 60 Glucose 114 H Serum Osmolality 257 L Lactic Acid 1.1 Calcium 8.6 Magnesium 1.7 Total Bilirubin 0.9 AST 131 H ALT 147 H Alkaline Phosphatase 74 Total Protein 7.0 Albumin 3.5 Quality VTE Prophylaxis VTE prophylaxis: pharmacologic ordered
[2024-05-21] VITALS (24 sets, daily range): BP systolic 127–148; BP diastolic 85–114; PULSE 78–133; RESP 19–26; TEMP 36.3–36.8; O2SAT 92–100; BMI 28.8
[2024-05-21] MEDS: IPRATROPIUM BR 0.02% INH SOLN 0.5 MG/2.5 ML VIAL INHALATION ×3 (02:06→19:24)
[2024-05-21] MEDS: LEVALBUTEROL NEB 1.25 MG/3 ML 0.63 MG INHALATION ×3 (02:06→19:24)
[2024-05-21 04:08] LABS: Basophils Absolute Auto 0.1 K/mm3 (0.0-0.1); Basophils Percent Auto 0.5 % (0.2-1.2); Eosinophils Absolute Auto 0.4 K/mm3 (0-0.3); Eosinophils Percent Auto 2.7 % (0-4.4); Hematocrit 43.7 % (42.0-52.0); Hemoglobin 14.7 g/dL (14.0-18.0); Immature Granulocyte Percent A 0.7 % (0-0.5); Lymphocytes Absolute Auto 1.25 K/mm3 (0.9-3.2); Lymphocytes Percent Auto 8.2 % (18.3-44.2); Mean Corpuscular HGB Conc 33.6 g/dl (32-36); Mean Corpuscular Hemoglobin 32.4 pg (26-34); Mean Corpuscular Volume 96.3 fl (80-100); Mean Platelet Volume 10.5 fl (7.4-10.4); Monocytes Absolute Auto 2.1 K/mm3 (0.1-0.6); Monocytes Percent Auto 13.4 % (2.6-8.5); Neutrophils Absolute Auto 11.4 K/mm3 (1.3-6.7); Neutrophils Percent Auto 74.5 % (45.5-73.1); Platelet Count Result 217 k/mm3 (150-375); Red Blood Count 4.54 M/mm3 (4.6-6.20); Red Cell Distribution Width 13.3 % (11.5-14.5); White Blood Count 15.3 K/mm3 (4.5-10.0)
[2024-05-21 04:35] LABS: Alanine Aminotransferase 145 U/L (6-50); Albumin Level 3.6 g/dL (3.5-5.1); Alkaline Phosphatase 81 U/L (38-126); Anion Gap 8 mmol/L (4-12); Aspartate Amino Transferase 85 U/L (17-59); Bilirubin,Total 0.9 mg/dL (0.2-1.3); Blood Urea Nitrogen 17 mg/dL (9-20); Calcium 8.7 mg/dL (8.4-10.2); Carbon Dioxide 29 mmol/L (22-30); Chloride 94 mmol/L (98-107); Estimated CRCL calculation 145 ml/min; Estimated Glomerular Filt Rate > 60; Glucose 114 mg/dL (65-110); Magnesium 1.8 mg/dL (1.6-2.3); Potassium 3.5 mmol/L (3.4-5.0); Sodium 131 mmol/L (137-145)
[2024-05-21] MEDS: CEFEPIME 2 GM/NS 50 ML 2 GM/50 ML BAG IVPB ×3 (05:35→21:39)
--- NOTE | 2024-05-21 07:36 | ECG_ITS ---
Test Date: 2024-05-21 07:54:36 Measurements Intervals [place] Rate: 117 P: 0 [place]: 0 QRS: 90 QRSD: 89 T: -3 QT: 327 QTc: 457 Interpretive Statements ATRIAL FIBRILLATION WITH RAPID VENTRICULAR RESPONSE INCOMPLETE RIGHT BUNDLE BRANCH BLOCK Compared to ECG 05/14/2024 10:03:39 VENTRICULAR RATE IS SLOWER NOW Electronically Signed On 05-21-2024 16:31:24 [employer] OFFICER by Linda Hubbard M.D.
[2024-05-21] MEDS: METOPROLOL SUCCINATE EXT REL 100 MG TABCR 200 MG PO (08:25)
[2024-05-21] MEDS: APIXABAN 5 MG TABLET PO ×2 (08:25→21:39)
[2024-05-21] MEDS: SACUBITRIL/VALSARTAN 24-26 MG TABLET 1 TAB PO ×2 (08:25→21:39)
[2024-05-21] MEDS: PANTOPRAZOLE 40 MG TABLET PO (08:26)
[2024-05-21] MEDS: FUROSEMIDE INJ 40 MG/4 ML VIAL IV PUSH (08:26)
[2024-05-21] MEDS: EMPAGLIFLOZIN 10 MG TABLET PO (08:26)
[2024-05-21] MEDS: DIGOXIN INJ 250 MCG/ML 2 ML AMP (*BKC) 500 MCG IV PUSH (10:44)
--- NOTE | 2024-05-21 10:59 | P.PNCA_ITS ---
Progress Note: A&P Assessment and Plan (1) Atrial fibrillation with rapid ventricular response: Code(s): I48.91 - Unspecified atrial fibrillation Status: Acute (2) Mitral regurgitation: Code(s): I34.0 - Nonrheumatic mitral (valve) insufficiency Status: Acute (3) Systolic heart failure: Code(s): I50.20 - Unspecified systolic (congestive) heart failure Status: Acute (4) Pulmonary hypertension: Code(s): I27.20 - Pulmonary hypertension, unspecified Status: Acute Plan 48-year-old man with traumatic brain injury, brain aneurysm status post surgery (at age 12), hypertension, ulcerative colitis, and seizures initially presented with worsening shortness of breath and generalized weakness Acute heart failure with reduced LVEF of 35-40% -Continue IV Lasix. -Previously was cautious with diuretics while patient was hyponatremic however that appears to have mostly resolved -Continue Entresto 24-26 mg BID -Continue Toprol 200mg daily -Continue Jardiance 10mg daily -Start Spironolactone 10mg once daily. -Ischemic evaluation can be done as outpatient. Paroxysmal atrial fibrillation -Continue Toprol 200mg daily. Avoid Diltiazem given reduced LVEF. -Continue Eliquis 5mg BID for stroke risk reduction. -He still continues to have rapid ventricular rates which may improve with diuresis -Will work on rate control. Continue Toprol, will give IV Digoxin. -If rates are not improving, could consider transesophageal echocardiogram to rule out left atrial appendage thrombus and attempt cardioversion. However, given severely dilated left atrium, this may not be successful. -While cardioversion may not work secondary to his severely dilated left atrium, the transesophageal echocardiogram would rule out left atrial appendage thrombus and allowed us to start him on long-term oral Amiodarone until he sees Electrophysiology outpatient for possible catheter ablation Moderate to severe mitral regurgitation -Will re-evaluate once he is euvolemic and on guideline directed medical therapy in outpatient setting Pulmonary hypertension -Most likely secondary to left-sided heart disease and will re-evaluate once he is euvolemic and has been trialed on guideline directed medical therapy in the outpatient setting Subjective Date/time seen: 05/21/24 10:59 Interval history: Reason for visit: HFrEF HPI: 48-year-old man with traumatic brain injury, brain aneurysm status post surgery (at age 12), hypertension, ulcerative colitis, and seizures initially presented with worsening shortness of breath and generalized weakness. There was associated lower extremity swelling and upon presentation to the emergency room he was also found to have paroxysmal atrial fibrillation with rapid ventricular rate and upon starting diltiazem drip, patient started to have respiratory distress leading to intubation. Currently he states that his shortness of breath has improved as well as the lower extremity swelling. He denies any chest discomfort when he is performing physical activity outside of the hospital. Denies any syncopal events. The atrial fibrillation is new to him. Date of service 05/19: CXR this morning shows clear lungs. Patient states he feels okay. Date of service 05/20: Denies chest pain or shortness of breath. Is on 2 L nasal cannula. Swelling has resolved and lower extremities. Still has some mild swelling in the upper thighs as well as abdomen. Date of service 05/21: Feeling better. He denies shortness of breath, remains on oxygen. Has mild ankle edema, but otherwise significant improvement in lower extremity edema. Heart rate in the 110s at rest. Review of Systems 2 Cardiovascular: Cardiovascular: Reports as per HPI Exam Const: General: no acute distress Eyes: General: appearance normal, both eyes and all related structures Sclera: sclerae normal Resp: Effort & Inspection: normal respiratory effort Other: On supplemental oxygen Cardio: Rate: tachycardic Rhythm: abnormal rhythm irregularly irregular Neuro: Speech: normal speech Psych: Mental Status: mental status grossly normal Affect: normal affect Objective Data Vital Signs Vital Signs: Vital Signs - 24 hr 05/20/24 12:00 05/20/24 12:00 05/20/24 12:00 Temperature 37.1 C Pulse Rate 114 H 111 H 111 H Respiratory Rate 24 H 24 H Blood Pressure 142/101 H Pulse Oximetry 99 99 Oxygen Delivery Nasal Cannula Oxygen Flow Rate 2 Fraction of Inspired Oxygen 28 05/20/24 13:28 05/20/24 13:44 05/20/24 14:00 Temperature Pulse Rate 111 H 104 H 110 H Respiratory Rate 20 20 Blood Pressure Pulse Oximetry Oxygen Delivery Oxygen Flow Rate Fraction of Inspired Oxygen 05/20/24 14:00 05/20/24 16:00 05/20/24 16:00 Temperature 36.6 C Pulse Rate 104 H 106 H 107 H Respiratory Rate 22 H Blood Pressure 142/88 H Pulse Oximetry 98 Oxygen Delivery Oxygen Flow Rate Fraction of Inspired Oxygen 05/20/24 16:00 05/20/24 18:00 05/20/24 19:46 Temperature Pulse Rate 106 H 101 H 105 H Respiratory Rate 22 H 20 Blood Pressure Pulse Oximetry 98 Oxygen Delivery Room Air Oxygen Flow Rate Fraction of Inspired Oxygen 28 05/20/24 19:51 05/20/24 19:55 05/20/24 20:00 Temperature 37.1 C Pulse Rate 105 H 104 H Respiratory Rate 20 24 H Blood Pressure 143/96 H Pulse Oximetry 98 96 Oxygen Delivery Nasal Cannula Oxygen Flow Rate 2 Fraction of Inspired Oxygen 05/20/24 20:00 05/20/24 20:00 05/20/24 21:38 Temperature Pulse Rate 96 104 H 98 Respiratory Rate 24 H Blood Pressure Pulse Oximetry 96 Oxygen Delivery Nasal Cannula Oxygen Flow Rate 2 Fraction of Inspired Oxygen 28 05/20/24 23:34 05/20/24 23:34 05/21/24 00:00 Temperature 36.6 C Pulse Rate 94 94 103 H Respiratory Rate 24 H 22 H Blood Pressure 138/93 H Pulse Oximetry 96 99 Oxygen Delivery Nasal Cannula Oxygen Flow Rate 2 Fraction of Inspired Oxygen 28 05/21/24 02:00 05/21/24 02:07 05/21/24 02:15 Temperature Pulse Rate 98 96 104 H Respiratory Rate 20 19 Blood Pressure Pulse Oximetry Oxygen Delivery Oxygen Flow Rate Fraction of Inspired Oxygen 05/21/24 04:00 05/21/24 04:00 05/21/24 04:00 Temperature 36.4 C L Pulse Rate 96 107 H 107 H Respiratory Rate 20 20 Blood Pressure 148/98 H Pulse Oximetry 99 99 Oxygen Delivery Nasal Cannula Oxygen Flow Rate 2 Fraction of Inspired Oxygen 28 05/21/24 06:00 05/21/24 07:59 05/21/24 08:00 Temperature 36.3 C L Pulse Rate 96 106 H 116 H Respiratory Rate 22 H 22 H Blood Pressure 147/114 H Pulse Oximetry 100 100 Oxygen Delivery Nasal Cannula Oxygen Flow Rate 2 Fraction of Inspired Oxygen 28 05/21/24 08:00 05/21/24 08:25 05/21/24 09:37 Temperature Pulse Rate 124 H 116 H Respiratory Rate Blood Pressure Pulse Oximetry Oxygen Delivery Nasal Cannula Oxygen Flow Rate 2 Fraction of Inspired Oxygen 05/21/24 10:00 05/21/24 10:44 Temperature Pulse Rate 122 H 114 H Respiratory Rate Blood Pressure Pulse Oximetry Oxygen Delivery Oxygen Flow Rate Fraction of Inspired Oxygen Intake/Output Intake/Output: Intake & Output 05/18/24 05/19/24 05/20/24 05/21/24 23:59 23:59 23:59 23:59 Intake Total 911.5 1636.6 1670 1610 Output Total 3500 1450 6750 1900 Balance -2588.5 186.6 -6896 -066 Meds/Results Medications: Active Medications Generic Name Dose Route Start Last Admin Trade Name Freq PRN Reason Stop Dose Admin Acetaminophen 650 mg 05/19/24 12:03 Acetaminophen 325 Mg Tablet PO Q6H PRN Mild Pain (1-3) or Fever Apixaban 5 mg 05/19/24 21:00 05/21/24 08:25 Apixaban 5 Mg Tablet PO 5 mg Q12HR DAKSHA Administration Dextrose 12.5 gm 05/15/24 19:27 Dextrose 50% 25 Gm/50 Ml Syringe IV PUSH PRN PRN Hypoglycemia Protocol Empagliflozin 10 mg 05/21/24 09:00 05/21/24 08:26 Empagliflozin 10 Mg Tablet PO 10 mg DAILY DAKSHA Administration Furosemide 40 mg 05/21/24 09:00 05/21/24 08:26 Furosemide Inj 40 Mg/4 Ml Vial IV PUSH 40 mg DAILY DAKSHA Administration Glucagon 1 mg 05/15/24 19:27 Glucagon For Inj 1 Mg Vial IM PRN PRN Hypoglycemia Protocol Glucose 15 gm 05/15/24 19:27 Glucose Oral Gel 15 Gm Of Glucse In 37.5 Gm Tube PO PRN PRN Hypoglycemia Protocol Cefepime HCl 2 gm in 50 mls @ 100 mls/hr 05/15/24 06:00 05/21/24 06:05 Maxipime 2 Gm/Ns 50 Ml IVPB 05/21/24 22:29 Infused Q8HR DAKSHA Infusion Dextrose 1,000 mls @ 100 mls/hr 05/15/24 19:27 Dextrose 5% 1,000 Ml IVPB PRN PRN Hypoglycemia Protocol Ipratropium [place] 0.5 mg 05/15/24 14:00 05/21/24 09:41 Ipratropium Br 0.02% Inh Soln 0.5 Mg/2.5 Ml Vial INHALATION Not Given Q6HRT DAKSHA Levalbuterol HCl 0.63 mg 05/15/24 14:00 05/21/24 09:42 Levalbuterol Neb 1.25 Mg/3 Ml INHALATION Not Given Q6HRT DAKSHA Metoprolol Succinate 200 mg 05/20/24 09:00 05/21/24 08:25 Metoprolol Succinate Ext Rel 100 Mg Tabcr PO 200 mg QAM DAKSHA Administration Metoprolol Tartrate 5 mg 05/18/24 14:11 05/18/24 14:24 Metoprolol Tartrate Inj 5 Mg/5 Ml Vial IV PUSH 5 mg Q4H PRN Administration persistent tachycardia, >120 Pantoprazole Sodium 40 mg 05/20/24 09:00 05/21/24 08:26 Pantoprazole 40 Mg Tablet PO 40 mg QAM DAKSHA Administration Polyethylene Glycol 17 gm 05/18/24 08:04 Polyethylene Glycol 3350 17 Gm Powd.Pack PO QAM PRN COnstipation Sacubitril/Valsartan 1 tab 05/19/24 21:00 05/21/24 08:25 Sacubitril/Valsartan 24-26 Mg Tablet PO 1 tab Q12HR DAKSHA Administration Senna/Docusate Sodium 1 tab 05/18/24 08:04 Senna/Docusate Sodium Tablet PO DAILY PRN Constipation Radiology Results: ITS Impressions Abdomen/Pelvis CT 05/14/24 13:28 IMPRESSION: 1. Pulmonary edema. 2. Small pleural effusions. 3. Small volume of ascites. Head CT 05/14/24 15:43 IMPRESSION: 1. 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 2. Small lateral and third ventricles, which is a change from the prior exam. Shunt catheter unchanged in position. Chest CTA 05/14/24 15:49 IMPRESSION: 1. No evident pulmonary embolism. Sensitivity decreased in the segmental pulmonary arteries and nondiagnostic in many of the smaller subsegmental pulmonary arteries particularly in the lung bases due to combination of suboptimal contrast opacification, respiratory motion and streak artifact. 2. Small to moderate-sized bilateral pleural effusions with dependent compressive atelectasis. Difficult to exclude superimposed pneumonia although suspicion is low. 3. Cardiomegaly. 4. 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 Nasogastric tube in stomach. 2. Cardiomegaly. 3. Retrocardiac opacity left lower lung zone which could represent persistent small pleural effusion, atelectasis or pneumonia. Venous Doppler Study 05/15/24 12:29 IMPRESSION: 1. No deep venous thrombosis in either lower limb. Modified Barium Swallow 05/18/24 15:18 IMPRESSION: 1. Normal modified barium swallow. 2. Please refer to the speech therapy report for recommendations. Chest X-Ray 05/20/24 06:14 Impression: Probable bibasilar mild pulmonary edema, left worse than right. Correlate clinically for pneumonia. Labs Labs: Laboratory Results - last 24 hr 05/21/24 03:58 WBC 15.3 H RBC 4.54 L Hgb 14.7 Hct 43.7 MCV 96.3 MCH 32.4 MCHC 33.6 RDW 13.3 Plt Count 217 MPV 10.5 H Immature Gran % (Auto) 0.7 H Neut % (Auto) 74.5 H Lymph % (Auto) 8.2 L Swisher % (Auto) 13.4 H Eos % (Auto) 2.7 Baso % (Auto) 0.5 Lymph # (Auto) 1.25 Swisher # (Auto) 2.1 H Eos # (Auto) 0.4 H Baso # (Auto) 0.1 Abs Immat Gran (auto) 0.10 H Absolute Neuts (auto) 11.4 H Absolute Nucleated RBC 0.000 Nucleated RBC % 0.0 Sodium 131 L Potassium 3.5 Chloride 94 L Carbon Dioxide 29 Anion Gap 8 BUN 17 Creatinine 0.53 L Estim Creat Clear Calc 145 Estimated GFR > 60 Glucose 114 H Lactic Acid 1.0 Calcium 8.7 Magnesium 1.8 Total Bilirubin 0.9 AST 85 H ALT 145 H Alkaline Phosphatase 81 Total Protein 6.0 L Albumin 3.6
[2024-05-21] MEDS: SPIRONOLACTONE 25 MG TABLET PO (11:30)
--- NOTE | 2024-05-21 15:46 | P.PNIM_ITS ---
Progress Note: A&P Assessment and Plan (1) Sepsis: Qualifiers: Sepsis type: sepsis due to unspecified organism Sepsis acute organ dysfunction status: with acute organ dysfunction Severe sepsis acute organ dysfunction type: encephalopathy Severe sepsis shock status: without septic shock Qualified Code(s): A41.9 - Sepsis, unspecified organism; R65.20 - Severe sepsis without septic shock; G93.41 - Metabolic encephalopathy Code(s): A41.9 - Sepsis, unspecified organism Status: Acute Assessment and Plan: Patient presented with shortness of breath, generalized weakness, acute altered mental status -tachycardia, elevated WBC count -chest CTA likely pneumonia, possible cellulitis of the right knee -MRSA screen negative, discontinue vancomycin (05/16) -blood pressures have remained stable, patient not requiring pressors -05/14: Blood cultures: Primary cultures are negative -05/15: Sputum cultures are negative -05/15: Bilateral lower extremity venous Dopplers were negative for DVT bilaterally Completed Doxycycline Day 09/20 Cefepime monitor (2) Acute respiratory failure: Code(s): J96.00 - Acute respiratory failure, unspecified whether with hypoxia or hypercapnia Status: Acute Assessment and Plan: Acute respiratory failure could be multifactorial, inflammation RVR, seizures, chronic encephalomalacia, -05/14: intubated in the ER - 05/18 extubated Continue bronchodilators 05/14/2024 CTA chest: negative PE and showed bilateral pleural effusions 05/20/24 showed Pulm edema Continue Lasix (3) Acute alteration in mental status: Code(s): R41.82 - Altered mental status, unspecified Status: Acute Assessment and Plan: RESOLVED Elevated LFTs, could be related to hypoxia, hyponatremia -ammonia levels were normal, -patient currently following commands, will continue to monitor 05/14/2024 CT brain: IMPRESSION: 1. 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 2. Small lateral and third ventricles, which is a change from the prior exam. Shunt catheter unchanged in position. (4) Pneumonia: Qualifiers: Pneumonia type: due to unspecified organism Laterality: bilateral Lung location: lower lobe of lung Qualified Code(s): J18.9 - Pneumonia, unspecified organism Code(s): J18.9 - Pneumonia, unspecified organism Status: Acute Assessment and Plan: Continue antibiotics as above Sputum cultures negative (5) Hyponatremia: Code(s): E87.1 - Hypo-osmolality and hyponatremia Status: Acute Assessment and Plan: Hyponatremia, multifactorial, could be related to pneumonia, SIADH, history of TBI, patient does have a history of hyponatremia in 2019, 2019, 2022 Improved. Now off of all fluids Monitor Nephrology following (6) Atrial fibrillation with rapid ventricular response: Code(s): I48.91 - Unspecified atrial fibrillation Status: Acute Assessment and Plan: Ventricular rate improved now. On ELiquis and Metoprolol 200mg daily and IV digoxin per cardiology ECHO showed ED 35-40% and moderate to severe mitral valve regurge also severe pulm hypertension with PASP 72mmHg Cardiology considering OUMOU with cardioversion monitor (7) Acute brachiocephalic vein thrombosis: Code(s): I82.290 - Acute embolism and thrombosis of other thoracic veins Status: Acute Assessment and Plan: Patient's face was cyanotic, CTA chest showed complete occlusion of distal left brachiocephalic vein, -hospitalist discussed with Vascular surgery at [facility] ([facility]), Dr. Laird, the surgeon reviewed images, recommended heparin gtt only. No interventions indicated at this time. -s/p Heparin infusion, now on Eliquis -monitor coags (8) Mitral regurgitation: Code(s): I34.0 - Nonrheumatic mitral (valve) insufficiency Status: Acute Assessment and Plan: Lasix IV Plan DVT prophylaxis: Eliquis Stress ulcer prophylaxis: Protonix IV Nutrition: Speech consult for swallow evaluation Code Status: Full code Subjective Date/time seen: 05/21/24 15:46 Interval history: Comfortable at bedside however still tachycardic cardiology added Digoxin today and plans for OUMOU with cardioversion Review of Systems Review of Systems: All systems reviewed & are unremarkable except as noted in HPI and below (HPI) ROS unobtainable: Yes unobtainable due to endotracheal tube and unobtainable due to medical condition Exam Narrative: General: Patient is alert awake in no distress HEENT:? Pupils equal reactive, sclera is clear, ETT in place Neck:? Tracheostomy scar noted Respiratory:? Coarse breath sounds bilateral bases, adequate air entry, no wheezing Cardiac:? Irregularly irregular, rate controlled Abdomen:? Soft, nontender, nondistended, normoactive bowel sounds NG tube in place Extremities:? Palpable pedal pulses, left knee more boggy with surgical scar. Right knee erythematous, warm Neuro:? AO x3, moves all 4 extremities follow command Skin:? Erythematous skin on right knee, no other skin lesions noted Psych:? Normal speech and affect Const: General: comfortable and no acute distress Other: , male, ill appearing HENMT: Face/Nose/Sinus: Normal nares present Mouth: Yes dry mucous membranes Other: ETT in place Eyes: General: appearance normal, both eyes and all related structures Sclera: sclerae normal Pupils: Equal, round and reactive pupils present Other: pupils pinpoint. Resp: Effort & Inspection: normal respiratory effort Other: faint bibasilar crackles, no wheezing. tolerated vent well. Cardio: Rate: tachycardic Rhythm: abnormal rhythm Other: no murmur. GI: Other: abdomen soft, nondistended. Normoactive BS in all quadrants. Urinary Catheter: Urinary Catheter: patent and draining Skin: Other: ecchymosis in various stages of healing and erythema to bilateral knees, erythema worse compared to initial exam that took place post-intubation. no drainage. no other macular/erythematous patches. Neuro: Cranial nerves: Yes Equal, round and reactive pupils present Other: moving all extremities. reacts to pain. intubated/sedated. Extrem: Other: faintly palpable DP pulses bilaterally, R stronger than L. 2+ pitting edema to BLE, symmetric. Psych: Other: unable to assess Objective Data Vital Signs Vital Signs: Vital Signs - 24 hr 05/20/24 16:00 05/20/24 16:00 05/20/24 16:00 Temperature 98 F Pulse Rate 106 H 107 H 106 H Respiratory Rate 22 H 22 H Blood Pressure 142/88 H Pulse Oximetry 98 98 Oxygen Delivery Room Air Oxygen Flow Rate Fraction of Inspired Oxygen 28 05/20/24 18:00 05/20/24 19:46 05/20/24 19:51 Temperature Pulse Rate 101 H 105 H Respiratory Rate 20 Blood Pressure Pulse Oximetry 98 Oxygen Delivery Nasal Cannula Oxygen Flow Rate 2 Fraction of Inspired Oxygen 05/20/24 19:55 05/20/24 20:00 05/20/24 20:00 Temperature 98.7 F Pulse Rate 105 H 104 H 96 Respiratory Rate 20 24 H 24 H Blood Pressure 143/96 H Pulse Oximetry 96 96 Oxygen Delivery Nasal Cannula Oxygen Flow Rate 2 Fraction of Inspired Oxygen 05/20/24 20:00 05/20/24 21:38 05/20/24 23:34 Temperature Pulse Rate 104 H 98 94 Respiratory Rate 24 H Blood Pressure Pulse Oximetry 96 Oxygen Delivery Nasal Cannula Oxygen Flow Rate 2 Fraction of Inspired Oxygen 28 05/20/24 23:34 05/21/24 00:00 05/21/24 02:00 Temperature 97.9 F Pulse Rate 94 103 H 98 Respiratory Rate 22 H Blood Pressure 138/93 H Pulse Oximetry 99 Oxygen Delivery Oxygen Flow Rate Fraction of Inspired Oxygen 05/21/24 02:07 05/21/24 02:15 05/21/24 04:00 Temperature 97.5 F L Pulse Rate 96 104 H 96 Respiratory Rate 20 19 20 Blood Pressure 148/98 H Pulse Oximetry 99 Oxygen Delivery Oxygen Flow Rate Fraction of Inspired Oxygen 05/21/24 04:00 05/21/24 04:00 05/21/24 06:00 Temperature Pulse Rate 107 H 107 H 96 Respiratory Rate 20 Blood Pressure Pulse Oximetry 99 Oxygen Delivery Nasal Cannula Oxygen Flow Rate 2 Fraction of Inspired Oxygen 05/21/24 07:59 05/21/24 08:00 05/21/24 08:00 Temperature 97.4 F L Pulse Rate 106 H 116 H 124 H Respiratory Rate 22 H 22 H Blood Pressure 147/114 H Pulse Oximetry 100 100 Oxygen Delivery Nasal Cannula Oxygen Flow Rate 2 Fraction of Inspired Oxygen 05/21/24 08:25 05/21/24 09:37 05/21/24 10:00 Temperature Pulse Rate 116 H 122 H Respiratory Rate Blood Pressure Pulse Oximetry Oxygen Delivery Nasal Cannula Oxygen Flow Rate 2 Fraction of Inspired Oxygen 05/21/24 10:44 05/21/24 11:36 05/21/24 12:00 Temperature Pulse Rate 114 H 114 H 133 H Respiratory Rate 22 H Blood Pressure Pulse Oximetry 100 Oxygen Delivery Nasal Cannula Oxygen Flow Rate 2 Fraction of Inspired Oxygen 28 05/21/24 12:00 05/21/24 14:12 05/21/24 14:12 Temperature 98.3 F Pulse Rate 96 78 Respiratory Rate 24 H 20 Blood Pressure 127/90 Pulse Oximetry 100 92 Oxygen Delivery Nasal Cannula Oxygen Flow Rate 2 Fraction of Inspired Oxygen 05/21/24 14:26 Temperature Pulse Rate 111 H Respiratory Rate 20 Blood Pressure Pulse Oximetry Oxygen Delivery Oxygen Flow Rate Fraction of Inspired Oxygen Intake/Output Intake/Output: Intake & Output 05/18/24 05/19/24 05/20/24 05/21/24 23:59 23:59 23:59 23:59 Intake Total 911.5 1636.6 1670 1610 Output Total 3500 1450 6750 1900 Balance -2588.5 186.6 -0789 -848 Meds/Results Medications: Active Medications Generic Name Dose Route Start Last Admin Trade Name Freq PRN Reason Stop Dose Admin Acetaminophen 650 mg 05/19/24 12:03 Acetaminophen 325 Mg Tablet PO Q6H PRN Mild Pain (1-3) or Fever Apixaban 5 mg 05/19/24 21:00 05/21/24 08:25 Apixaban 5 Mg Tablet PO 5 mg Q12HR DAKSHA Administration Dextrose 12.5 gm 05/15/24 19:27 Dextrose 50% 25 Gm/50 Ml Syringe IV PUSH PRN PRN Hypoglycemia Protocol Empagliflozin 10 mg 05/21/24 09:00 05/21/24 08:26 Empagliflozin 10 Mg Tablet PO 10 mg DAILY DAKSHA Administration Furosemide 40 mg 05/21/24 09:00 05/21/24 08:26 Furosemide Inj 40 Mg/4 Ml Vial IV PUSH 40 mg DAILY DAKSHA Administration Glucagon 1 mg 05/15/24 19:27 Glucagon For Inj 1 Mg Vial IM PRN PRN Hypoglycemia Protocol Glucose 15 gm 05/15/24 19:27 Glucose Oral Gel 15 Gm Of Glucse In 37.5 Gm Tube PO PRN PRN Hypoglycemia Protocol Cefepime HCl 2 gm in 50 mls @ 100 mls/hr 05/15/24 06:00 05/21/24 14:38 Maxipime 2 Gm/Ns 50 Ml IVPB 05/21/24 22:29 100 mls/hr Q8HR DAKSHA Administration Dextrose 1,000 mls @ 100 mls/hr 05/15/24 19:27 Dextrose 5% 1,000 Ml IVPB PRN PRN Hypoglycemia Protocol Ipratropium [place] 0.5 mg 05/15/24 14:00 05/21/24 14:14 Ipratropium Br 0.02% Inh Soln 0.5 Mg/2.5 Ml Vial INHALATION 0.5 mg Q6HRT DAKSHA Administration Levalbuterol HCl 0.63 mg 05/15/24 14:00 05/21/24 14:14 Levalbuterol Neb 1.25 Mg/3 Ml INHALATION 0.63 mg Q6HRT DAKSHA Administration Metoprolol Succinate 200 mg 05/20/24 09:00 05/21/24 08:25 Metoprolol Succinate Ext Rel 100 Mg Tabcr PO 200 mg QAM DAKSHA Administration Metoprolol Tartrate 5 mg 05/18/24 14:11 05/18/24 14:24 Metoprolol Tartrate Inj 5 Mg/5 Ml Vial IV PUSH 5 mg Q4H PRN Administration persistent tachycardia, >120 Pantoprazole Sodium 40 mg 05/20/24 09:00 05/21/24 08:26 Pantoprazole 40 Mg Tablet PO 40 mg QAM DAKSHA Administration Polyethylene Glycol 17 gm 05/18/24 08:04 Polyethylene Glycol 3350 17 Gm Powd.Pack PO QAM PRN COnstipation Sacubitril/Valsartan 1 tab 05/19/24 21:00 05/21/24 08:25 Sacubitril/Valsartan 24-26 Mg Tablet PO 1 tab Q12HR DAKSHA Administration Senna/Docusate Sodium 1 tab 05/18/24 08:04 Senna/Docusate Sodium Tablet PO DAILY PRN Constipation Spironolactone 25 mg 05/21/24 11:05 05/21/24 11:30 Spironolactone 25 Mg Tablet PO 25 mg QAM DAKSHA Administration Radiology Results: ITS Impressions Abdomen/Pelvis CT 05/14/24 13:28 IMPRESSION: 1. Pulmonary edema. 2. Small pleural effusions. 3. Small volume of ascites. Head CT 05/14/24 15:43 IMPRESSION: 1. 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 2. Small lateral and third ventricles, which is a change from the prior exam. Shunt catheter unchanged in position. Chest CTA 05/14/24 15:49 IMPRESSION: 1. No evident pulmonary embolism. Sensitivity decreased in the segmental pulmonary arteries and nondiagnostic in many of the smaller subsegmental pulmonary arteries particularly in the lung bases due to combination of suboptimal contrast opacification, respiratory motion and streak artifact. 2. Small to moderate-sized bilateral pleural effusions with dependent compressive atelectasis. Difficult to exclude superimposed pneumonia although suspicion is low. 3. Cardiomegaly. 4. 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 Nasogastric tube in stomach. 2. Cardiomegaly. 3. Retrocardiac opacity left lower lung zone which could represent persistent small pleural effusion, atelectasis or pneumonia. Venous Doppler Study 05/15/24 12:29 IMPRESSION: 1. No deep venous thrombosis in either lower limb. Modified Barium Swallow 05/18/24 15:18 IMPRESSION: 1. Normal modified barium swallow. 2. Please refer to the speech therapy report for recommendations. Chest X-Ray 05/20/24 06:14 Impression: Probable bibasilar mild pulmonary edema, left worse than right. Correlate clinically for pneumonia. Labs Labs: Laboratory Results - last 24 hr 05/21/24 03:58 WBC 15.3 H RBC 4.54 L Hgb 14.7 Hct 43.7 MCV 96.3 MCH 32.4 MCHC 33.6 RDW 13.3 Plt Count 217 MPV 10.5 H Immature Gran % (Auto) 0.7 H Neut % (Auto) 74.5 H Lymph % (Auto) 8.2 L [place] % (Auto) 13.4 H Eos % (Auto) 2.7 Baso % (Auto) 0.5 Lymph # (Auto) 1.25 [place] # (Auto) 2.1 H Eos # (Auto) 0.4 H Baso # (Auto) 0.1 Abs Immat Gran (auto) 0.10 H Absolute Neuts (auto) 11.4 H Absolute Nucleated RBC 0.000 Nucleated RBC % 0.0 Sodium 131 L Potassium 3.5 Chloride 94 L Carbon Dioxide 29 Anion Gap 8 BUN 17 Creatinine 0.53 L Estim Creat Clear Calc 145 Estimated GFR > 60 Glucose 114 H Lactic Acid 1.0 Calcium 8.7 Magnesium 1.8 Total Bilirubin 0.9 AST 85 H ALT 145 H Alkaline Phosphatase 81 Total Protein 6.0 L Albumin 3.6 Quality VTE Prophylaxis VTE prophylaxis: pharmacologic ordered
--- NOTE | 2024-05-21 16:48 | P.CONONC_ITS ---
Assessment and Plan Assessment and plan (1) Acute brachiocephalic vein thrombosis: Code(s): I82.290 - Acute embolism and thrombosis of other thoracic veins Status: Acute Assessment and Plan: Patient is a 48-year-old male with history of brain aneurysm diagnosed at age of 9 status post surgery and then subsequent development of stroke with left upper and lower extremity weakness. He has limited mobility since then and uses walker for the most of the time. He came into the hospital with generalized weakness shortness of breath and diagnosed to have pneumonia and sepsis. CTA chest showed complete occlusion of the left brachiocephalic vein. Vascular surgery was consulted at [facility] and no intervention indicated other than IV heparin. I will continue Eliquis 5 mg twice a day on discharge and follow-up in the office for repeat imaging studies and hypercoagulable workup. Most likely he will be on long-term anticoagulation therapy due to his pre-existing condition with limited mobility. I have provided my office information to the mother. HPI Data of Consult Date/Time: 05/21/24 16:48 Requesting Physician: Yomaira Copeland MD Primary Care Provider: Wayne Kurtz MD Consult Narrative Narrative: Moose Miranda is a 48 year old male with left upper and lower extremity weakness status post brain aneurysm and surgery 9 age of 9 with subsequent limited mobility along with history of seizure disorder osteoporosis, ulcerative colitis and hypertension brought into the hospital with shortness of breath and generalized weakness. CT of abdomen pelvis showed pulmonary edema, small pleural effusion and small volume of ascites. Chest x-ray showed pulmonary edema and small right-sided pleural effusion. Patient was diagnosed with sepsis and pneumonia. He was started on antibiotic with vancomycin that subsequently discontinued and he was started on doxycycline and cefepime. CTA chest showed complete occlusion of the distal left brachiocephalic vein. Dr. Laird were contacted and vascular surgery and recommendation was to continue on heparin. No intervention was indicated. Patient has limited mobility at home and uses walker due to previous history of left upper and lower extremity weakness with subsequent stroke. He was not on any blood thinner on arrival. Labs showed elevated WBC count of 15.3 with normal platelet count and normal hemoglobin. Review of Systems 2 Review of Systems: Review of system as per HPI otherwise negative PMFSH Past Medical History Medical History (Updated 05/17/24 @ 17:39 by Jason Modi MD) Frequent falls Atrial fibrillation Hyponatremia History of seizure Hx of traumatic brain injury Heart murmur Pulmonary nodule Osteoporosis Brain aneurysm Ulcerative colitis Hypertension Surgical History Surgical History [employer] (ventriculoperitoneal) shunt status H/O left knee surgery Hx of tracheostomy Hx of colonoscopy Hx of brain surgery S/P clamping of cerebral aneurysm Family History Family History Father Hypertension Family history of coronary artery disease Mother Hypertension Family history of coronary artery disease Grandparent Carcinoma of colon Diabetes mellitus Social History Social History Social History: The patient is currently living with his grandmother and helps to take care of her. The patient walks with a walker typically but has been in a wheelchair recently. Lifelong nonsmoker. He denies any alcohol marijuana or illicit drugs. The patient denies being on disability but is unemployed at this time Code status full code Smoking status: Never smoker Alcohol intake: unknown Substance use: unknown Substance use type: does not use Lack of Transportation: No Lack of Food: Never True Current Housing: I Have Housing Concerned About Future Housing: No Difficulty Paying Gas/Electric Bills: No Difficulty Paying for Meds: No Currently Unemployed: No Education: Trade/Vocational Certificate Difficulty w/ Childcare or Family Care: No Living arrangements: with family Gender identity (if verbalized by the patient): Male Spiritual care concerns: No Meds Home Medications and Allergies Home Medications ?Medication ?Instructions ?Recorded ?Confirmed ?Type adalimumab 40 mg/0.8 mL 40 mg subcut Q14D 03/19/19 05/19/24 History subcutaneous pen kit (Humira Pen) alendronate 70 mg tablet 70 mg PO WEEKLY 03/19/19 05/14/24 History folic acid 1 mg tablet 1 mg PO DAILY 03/19/19 05/14/24 History lisinopril 20 mg tablet 20 mg PO BID 03/19/19 05/14/24 History calcium carbonate (Calcium 500) 500 mg PO BID 03/25/19 05/19/24 History glucosamine-chondroitin 250 mg-200 2 tablet PO DAILY 03/25/19 05/19/24 History mg tablet (Osteo Bi-Flex) multivitamin,[id number] 1 tablet PO DAILY 03/25/19 05/19/24 History (Complete Multivitamin tablet) azathioprine 50 mg tablet (Imuran) 100 mg PO DAILY 06/06/20 05/14/24 History sulfasalazine 500 mg tablet 500 mg PO QID 11/03/22 05/14/24 History metoprolol succinate 50 mg 50 mg PO DAILY 05/14/24 05/14/24 History tablet,extended release 24 hr Allergies Allergy/AdvReac Type Severity Reaction Status Date / Time No Known Allergies Allergy Verified 05/14/24 22:41 Vital Signs Vital Signs - 24 hr 05/20/24 18:00 05/20/24 19:46 05/20/24 19:51 Temperature Pulse Rate 101 H 105 H Respiratory Rate 20 Blood Pressure Pulse Oximetry 98 Oxygen Delivery Nasal Cannula Oxygen Flow Rate 2 Fraction of Inspired Oxygen 05/20/24 19:55 05/20/24 20:00 05/20/24 20:00 Temperature 37.1 C Pulse Rate 105 H 104 H 96 Respiratory Rate 20 24 H 24 H Blood Pressure 143/96 H Pulse Oximetry 96 96 Oxygen Delivery Nasal Cannula Oxygen Flow Rate 2 Fraction of Inspired Oxygen 28 05/20/24 20:00 05/20/24 21:38 05/20/24 23:34 Temperature Pulse Rate 104 H 98 94 Respiratory Rate 24 H Blood Pressure Pulse Oximetry 96 Oxygen Delivery Nasal Cannula Oxygen Flow Rate 2 Fraction of Inspired Oxygen 05/20/24 23:34 05/21/24 00:00 05/21/24 02:00 Temperature 36.6 C Pulse Rate 94 103 H 98 Respiratory Rate 22 H Blood Pressure 138/93 H Pulse Oximetry 99 Oxygen Delivery Oxygen Flow Rate Fraction of Inspired Oxygen 05/21/24 02:07 05/21/24 02:15 05/21/24 04:00 Temperature 36.4 C L Pulse Rate 96 104 H 96 Respiratory Rate 20 19 20 Blood Pressure 148/98 H Pulse Oximetry 99 Oxygen Delivery Oxygen Flow Rate Fraction of Inspired Oxygen 05/21/24 04:00 05/21/24 04:00 05/21/24 06:00 Temperature Pulse Rate 107 H 107 H 96 Respiratory Rate 20 Blood Pressure Pulse Oximetry 99 Oxygen Delivery Nasal Cannula Oxygen Flow Rate 2 Fraction of Inspired Oxygen 28 05/21/24 07:59 05/21/24 08:00 05/21/24 08:00 Temperature 36.3 C L Pulse Rate 106 H 116 H 124 H Respiratory Rate 22 H 22 H Blood Pressure 147/114 H Pulse Oximetry 100 100 Oxygen Delivery Nasal Cannula Oxygen Flow Rate 2 Fraction of Inspired Oxygen 28 05/21/24 08:25 05/21/24 09:37 05/21/24 10:00 Temperature Pulse Rate 116 H 122 H Respiratory Rate Blood Pressure Pulse Oximetry Oxygen Delivery Nasal Cannula Oxygen Flow Rate 2 Fraction of Inspired Oxygen 05/21/24 10:44 05/21/24 11:36 05/21/24 12:00 Temperature Pulse Rate 114 H 114 H 133 H Respiratory Rate 22 H Blood Pressure Pulse Oximetry 100 Oxygen Delivery Nasal Cannula Oxygen Flow Rate 2 Fraction of Inspired Oxygen 28 05/21/24 12:00 05/21/24 14:00 05/21/24 14:12 Temperature 36.8 C Pulse Rate 96 110 H Respiratory Rate 24 H Blood Pressure 127/90 Pulse Oximetry 100 92 Oxygen Delivery Nasal Cannula Oxygen Flow Rate 2 Fraction of Inspired Oxygen 05/21/24 14:12 05/21/24 14:26 05/21/24 16:00 Temperature 36.4 C L Pulse Rate 78 111 H 100 Respiratory Rate 20 20 26 H Blood Pressure 140/98 H Pulse Oximetry 98 Oxygen Delivery Oxygen Flow Rate Fraction of Inspired Oxygen Exam 2 Narrative: Lungs are clear to auscultation bilaterally Cardiovascular regular rate rhythm no murmurs Abdomen soft nontender nondistended Extremities no edema No lymphadenopathy palpable Results Labs 05/21/24 03:58 05/21/24 03:58 Labs: Short CBC 05/21/24 Range/Units 03:58 WBC 15.3 H (4.5-10.0) K/mm3 Hgb 14.7 (14.0-18.0) g/dL Hct 43.7 (42.0-52.0) % Plt Count 217 (150-375) k/mm3 BMP 05/21/24 03:58 Sodium 131 L Potassium 3.5 Chloride 94 L Carbon Dioxide 29 BUN 17 Creatinine 0.53 L Glucose 114 H Calcium 8.7 Liver Function 05/21/24 Range/Units 03:58 Total Bilirubin 0.9 (0.2-1.3) mg/dL AST 85 H (17-59) U/L ALT 145 H (6-50) U/L Alkaline Phosphatase 81 (38-126) U/L Albumin 3.6 (3.5-5.1) g/dL
[2024-05-22] VITALS (26 sets, daily range): BP systolic 110–147; BP diastolic 88–94; PULSE 80–121; RESP 14–20; TEMP 36.3–37.1; O2SAT 94–100
[2024-05-22] MEDS: LEVALBUTEROL NEB 1.25 MG/3 ML 0.63 MG INHALATION ×4 (02:00→20:04)
[2024-05-22] MEDS: IPRATROPIUM BR 0.02% INH SOLN 0.5 MG/2.5 ML VIAL INHALATION ×4 (02:00→20:04)
--- NOTE | 2024-05-22 02:45 | PC.NURSE ---
This patient, Moose Miranda, was transferred to room 205-2 on 05/21/24 at 2030. Personal belongings sent with patient. Appropriate documentation sent with patient.
[2024-05-22 04:54] LABS: Basophils Absolute Auto 0.1 K/mm3 (0.0-0.1); Basophils Percent Auto 0.6 % (0.2-1.2); Eosinophils Absolute Auto 0.4 K/mm3 (0-0.3); Eosinophils Percent Auto 2.9 % (0-4.4); Hematocrit 44.5 % (42.0-52.0); Hemoglobin 15.2 g/dL (14.0-18.0); Immature Granulocyte Absolute 0.11 K/mm3 (0.00-0.031); Immature Granulocyte Percent A 0.7 % (0-0.5); Lymphocytes Absolute Auto 1.64 K/mm3 (0.9-3.2); Mean Corpuscular HGB Conc 34.2 g/dl (32-36); Mean Corpuscular Hemoglobin 32.8 pg (26-34); Mean Corpuscular Volume 95.9 fl (80-100); Mean Platelet Volume 10.7 fl (7.4-10.4); Monocytes Absolute Auto 2.2 K/mm3 (0.1-0.6); Monocytes Percent Auto 14.5 % (2.6-8.5); Neutrophils Absolute Auto 10.5 K/mm3 (1.3-6.7); Neutrophils Percent Auto 70.3 % (45.5-73.1); Platelet Count Result 245 k/mm3 (150-375); Red Blood Count 4.64 M/mm3 (4.6-6.20); Red Cell Distribution Width 13.1 % (11.5-14.5); White Blood Count 14.9 K/mm3 (4.5-10.0)
[2024-05-22 05:09] LABS: Alanine Aminotransferase 132 U/L (6-50); Albumin Level 3.6 g/dL (3.5-5.1); Alkaline Phosphatase 83 U/L (38-126); Anion Gap 11 mmol/L (4-12); Aspartate Amino Transferase 61 U/L (17-59); Bilirubin,Total 0.8 mg/dL (0.2-1.3); Blood Urea Nitrogen 23 mg/dL (9-20); Calcium 8.9 mg/dL (8.4-10.2); Carbon Dioxide 28 mmol/L (22-30); Chloride 94 mmol/L (98-107); Estimated CRCL calculation 129 ml/min; Estimated Glomerular Filt Rate > 60; Glucose 101 mg/dL (65-110); Potassium 3.8 mmol/L (3.4-5.0); Sodium 133 mmol/L (137-145)
--- NOTE | 2024-05-22 09:43 | PM.PNCARD ---
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 In contrast to my partner's notes this man's atrial fib is NOT new. We saw him in consultation for atrial fibrillation in 2022. Since he has been in atrial fib for at least a couple of years or more and his left atrium is very large there is no realistic chance of restoring and maintaining sinus rhythm and I do not believe plans towards cardioverting him would be of any benefit. At this point he needs to be treated with guideline directed medical therapy for LV dysfunction and try to provide rate control as best as we can. His renal function is normal so I will continue to load him with oral digoxin. Presumably my colleagues saw him in consultation did not notice that he was seen in 2022 with atrial fibrillation and therefore this is not a new problem for him. Spent a good deal of time explaining this to the patient and his who is in the room this morning. Ranjan Carter MD [facility] Subjective Date/time seen: Date of service: 05/22/24 09:43 Interval history: Follow-up visit in this 48-year-old man with: Atrial fibrillation with rapid ventricular response also with moderate left ventricular systolic dysfunction. Patient is receiving metoprolol and started on some digoxin yesterday for rate control. The patient has been seen today in his chart has been reviewed. He says he feels better today and does not offer any specific cardiac complaints. Resting heart rate is still 120-130 beats per minute. Denies palpitations or dyspnea Exam Const: General: comfortable and no acute distress HENMT: Mouth: Yes moist mucous membranes Eyes: General: appearance normal, both eyes and all related structures Sclera: sclerae normal EOM: EOMs intact bilaterally Neck: Neck: no JVD Resp: Effort & Inspection: normal respiratory effort Auscultation: clear to auscultation bilaterally and rales Other: On supplemental oxygen Cardio: Rate: tachycardic Rhythm: abnormal rhythm irregularly irregular Heart sounds: Murmur heart sound present Other: Grade 3 holosystolic murmur in the apex Neuro: Speech: normal speech Extrem: General: no pedal edema Psych: Mental Status: mental status grossly normal Affect: normal affect Objective Data Vital Signs Vital Signs: Vital Signs - 24 hr 05/21/24 10:00 05/21/24 10:44 05/21/24 11:36 Temperature Pulse Rate 122 H 114 H 114 H Respiratory Rate 22 H Blood Pressure Pulse Oximetry 100 Oxygen Delivery Nasal Cannula Oxygen Flow Rate 2 Fraction of Inspired Oxygen 28 05/21/24 12:00 05/21/24 12:00 05/21/24 14:00 Temperature 36.8 C Pulse Rate 133 H 96 110 H Respiratory Rate 24 H Blood Pressure 127/90 Pulse Oximetry 100 Oxygen Delivery Oxygen Flow Rate Fraction of Inspired Oxygen 05/21/24 14:12 05/21/24 14:12 05/21/24 14:26 Temperature Pulse Rate 78 111 H Respiratory Rate 20 20 Blood Pressure Pulse Oximetry 92 Oxygen Delivery Nasal Cannula Oxygen Flow Rate 2 Fraction of Inspired Oxygen 05/21/24 16:00 05/21/24 16:00 05/21/24 16:00 Temperature 36.4 C L Pulse Rate 100 101 H 101 H Respiratory Rate 26 H 26 H Blood Pressure 140/98 H Pulse Oximetry 98 98 Oxygen Delivery Nasal Cannula Oxygen Flow Rate 2 Fraction of Inspired Oxygen 28 05/21/24 18:00 05/21/24 19:24 05/21/24 19:24 Temperature Pulse Rate 102 H 96 Respiratory Rate 20 Blood Pressure Pulse Oximetry 94 Oxygen Delivery Nasal Cannula Oxygen Flow Rate 2 Fraction of Inspired Oxygen 28 05/21/24 19:34 05/21/24 20:00 05/21/24 20:00 Temperature 36.3 C L Pulse Rate 92 102 H 101 H Respiratory Rate 20 20 Blood Pressure 147/97 H Pulse Oximetry 96 Oxygen Delivery Oxygen Flow Rate Fraction of Inspired Oxygen 05/21/24 20:45 05/21/24 22:00 05/21/24 23:53 Temperature 36.6 C Pulse Rate 102 H 99 90 Respiratory Rate 20 20 Blood Pressure 138/85 Pulse Oximetry 96 98 Oxygen Delivery Nasal Cannula Oxygen Flow Rate 2 Fraction of Inspired Oxygen 05/22/24 00:00 05/22/24 01:00 05/22/24 02:00 Temperature Pulse Rate 90 90 Respiratory Rate 20 Blood Pressure Pulse Oximetry 98 95 Oxygen Delivery Nasal Cannula Nasal Cannula Oxygen Flow Rate 2 1 Fraction of Inspired Oxygen 24 05/22/24 02:00 05/22/24 02:00 05/22/24 02:10 Temperature Pulse Rate 99 91 88 Respiratory Rate 16 16 Blood Pressure Pulse Oximetry Oxygen Delivery Oxygen Flow Rate Fraction of Inspired Oxygen 05/22/24 04:00 05/22/24 05:15 05/22/24 07:43 Temperature 36.3 C L 36.8 C Pulse Rate 97 87 96 Respiratory Rate 20 18 14 Blood Pressure 110/92 H 147/93 H Pulse Oximetry 97 100 100 Oxygen Delivery Nasal Cannula Oxygen Flow Rate 1 Fraction of Inspired Oxygen 05/22/24 09:00 Temperature Pulse Rate 121 H Respiratory Rate 20 Blood Pressure 121/92 H Pulse Oximetry 99 Oxygen Delivery Oxygen Flow Rate Fraction of Inspired Oxygen Intake/Output Intake/Output: Intake & Output 05/19/24 05/20/24 05/21/24 05/22/24 23:59 23:59 23:59 23:59 Intake Total 1636.6 1670 2270 950 Output Total 1450 6750 4450 1300 Balance 186.6 -5080 -2180 -350 Meds/Results Medications: Active Medications Generic Name Dose Route Start Last Admin Trade Name Freq PRN Reason Stop Dose Admin Acetaminophen 650 mg 05/19/24 12:03 Acetaminophen 325 Mg Tablet PO Q6H PRN Mild Pain (1-3) or Fever Apixaban 5 mg 05/19/24 21:00 05/21/24 21:39 Apixaban 5 Mg Tablet PO 5 mg Q12HR DAKSHA Administration Dextrose 12.5 gm 05/15/24 19:27 Dextrose 50% 25 Gm/50 Ml Syringe IV PUSH PRN PRN Hypoglycemia Protocol Empagliflozin 10 mg 05/21/24 09:00 05/21/24 08:26 Empagliflozin 10 Mg Tablet PO 10 mg DAILY DAKSHA Administration Furosemide 40 mg 05/21/24 09:00 05/21/24 08:26 Furosemide Inj 40 Mg/4 Ml Vial IV PUSH 40 mg DAILY DAKSHA Administration Glucagon 1 mg 05/15/24 19:27 Glucagon For Inj 1 Mg Vial IM PRN PRN Hypoglycemia Protocol Glucose 15 gm 05/15/24 19:27 Glucose Oral Gel 15 Gm Of Glucse In 37.5 Gm Tube PO PRN PRN Hypoglycemia Protocol Dextrose 1,000 mls @ 100 mls/hr 05/15/24 19:27 Dextrose 5% 1,000 Ml IVPB PRN PRN Hypoglycemia Protocol Ipratropium [place] 0.5 mg 05/15/24 14:00 05/22/24 02:00 Ipratropium Br 0.02% Inh Soln 0.5 Mg/2.5 Ml Vial INHALATION 0.5 mg Q6HRT DAKSHA Administration Levalbuterol HCl 0.63 mg 05/15/24 14:00 05/22/24 02:00 Levalbuterol Neb 1.25 Mg/3 Ml INHALATION 0.63 mg Q6HRT DAKSHA Administration Metoprolol Succinate 200 mg 05/20/24 09:00 05/21/24 08:25 Metoprolol Succinate Ext Rel 100 Mg Tabcr PO 200 mg QAM DAKSHA Administration Metoprolol Tartrate 5 mg 05/18/24 14:11 05/18/24 14:24 Metoprolol Tartrate Inj 5 Mg/5 Ml Vial IV PUSH 5 mg Q4H PRN Administration persistent tachycardia, >120 Pantoprazole Sodium 40 mg 05/20/24 09:00 05/21/24 08:26 Pantoprazole 40 Mg Tablet PO 40 mg QAM DAKSHA Administration Polyethylene Glycol 17 gm 05/18/24 08:04 Polyethylene Glycol 3350 17 Gm Powd.Pack PO QAM PRN COnstipation Sacubitril/Valsartan 1 tab 05/19/24 21:00 05/21/24 21:39 Sacubitril/Valsartan 24-26 Mg Tablet PO 1 tab Q12HR DAKSHA Administration Senna/Docusate Sodium 1 tab 05/18/24 08:04 Senna/Docusate Sodium Tablet PO DAILY PRN Constipation Spironolactone 25 mg 05/21/24 11:05 05/21/24 11:30 Spironolactone 25 Mg Tablet PO 25 mg QAM DAKSHA Administration Radiology Results: ITS Impressions Abdomen/Pelvis CT 05/14/24 13:28 IMPRESSION: 1. Pulmonary edema. 2. Small pleural effusions. 3. Small volume of ascites. Head CT 05/14/24 15:43 IMPRESSION: 1. 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 2. Small lateral and third ventricles, which is a change from the prior exam. Shunt catheter unchanged in position. Chest CTA 05/14/24 15:49 IMPRESSION: 1. No evident pulmonary embolism. Sensitivity decreased in the segmental pulmonary arteries and nondiagnostic in many of the smaller subsegmental pulmonary arteries particularly in the lung bases due to combination of suboptimal contrast opacification, respiratory motion and streak artifact. 2. Small to moderate-sized bilateral pleural effusions with dependent compressive atelectasis. Difficult to exclude superimposed pneumonia although suspicion is low. 3. Cardiomegaly. 4. 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 Nasogastric tube in stomach. 2. Cardiomegaly. 3. Retrocardiac opacity left lower lung zone which could represent persistent small pleural effusion, atelectasis or pneumonia. Venous Doppler Study 05/15/24 12:29 IMPRESSION: 1. No deep venous thrombosis in either lower limb. Modified Barium Swallow 05/18/24 15:18 IMPRESSION: 1. Normal modified barium swallow. 2. Please refer to the speech therapy report for recommendations. Chest X-Ray 05/20/24 06:14 Impression: Probable bibasilar mild pulmonary edema, left worse than right. Correlate clinically for pneumonia. Labs Labs: Laboratory Results - last 24 hr 05/22/24 03:58 WBC 14.9 H RBC 4.64 Hgb 15.2 Hct 44.5 MCV 95.9 MCH 32.8 MCHC 34.2 RDW 13.1 Plt Count 245 MPV 10.7 H Immature Gran % (Auto) 0.7 H Neut % (Auto) 70.3 Lymph % (Auto) 11.0 L [place] % (Auto) 14.5 H Eos % (Auto) 2.9 Baso % (Auto) 0.6 Lymph # (Auto) 1.64 [place] # (Auto) 2.2 H Eos # (Auto) 0.4 H Baso # (Auto) 0.1 Abs Immat Gran (auto) 0.11 H Absolute Neuts (auto) 10.5 H Absolute Nucleated RBC 0.000 Nucleated RBC % 0.0 Sodium 133 L Potassium 3.8 Chloride 94 L Carbon Dioxide 28 Anion Gap 11 BUN 23 H Creatinine 0.60 L Estim Creat Clear Calc 129 Estimated GFR > 60 Glucose 101 Calcium 8.9 Magnesium 2.0 Total Bilirubin 0.8 AST 61 H ALT 132 H Alkaline Phosphatase 83 Total Protein 7.0 Albumin 3.6
[2024-05-22] MEDS: PANTOPRAZOLE 40 MG TABLET PO (09:59)
[2024-05-22] MEDS: EMPAGLIFLOZIN 10 MG TABLET PO (09:59)
[2024-05-22] MEDS: METOPROLOL SUCCINATE EXT REL 100 MG TABCR 200 MG PO (09:59)
[2024-05-22] MEDS: SACUBITRIL/VALSARTAN 24-26 MG TABLET 1 TAB PO ×2 (10:00→23:23)
[2024-05-22] MEDS: FUROSEMIDE INJ 40 MG/4 ML VIAL IV PUSH (10:00)
[2024-05-22] MEDS: APIXABAN 5 MG TABLET PO ×2 (10:00→23:23)
[2024-05-22] MEDS: SPIRONOLACTONE 25 MG TABLET PO (10:00)
[2024-05-22] MEDS: DIGOXIN 250 MCG TABLET PO (10:17)
--- NOTE | 2024-05-22 14:17 | P.PNIM_ITS ---
Progress Note: A&P Assessment and Plan (1) Sepsis: Qualifiers: Sepsis type: sepsis due to unspecified organism Sepsis acute organ dysfunction status: with acute organ dysfunction Severe sepsis acute organ dysfunction type: encephalopathy Severe sepsis shock status: without septic shock Qualified Code(s): A41.9 - Sepsis, unspecified organism; R65.20 - Severe sepsis without septic shock; G93.41 - Metabolic encephalopathy Code(s): A41.9 - Sepsis, unspecified organism Status: Acute Assessment and Plan: Patient presented with shortness of breath, generalized weakness, acute altered mental status -tachycardia, elevated WBC count -chest CTA likely pneumonia, possible cellulitis of the right knee -MRSA screen negative, discontinue vancomycin (05/16) -blood pressures have remained stable, patient not requiring pressors -05/14: Blood cultures: Primary cultures are negative -05/15: Sputum cultures are negative -05/15: Bilateral lower extremity venous Dopplers were negative for DVT bilaterally Completed Doxycycline Day 09/20 Cefepime monitor (2) Acute respiratory failure: Code(s): J96.00 - Acute respiratory failure, unspecified whether with hypoxia or hypercapnia Status: Acute Assessment and Plan: Acute respiratory failure could be multifactorial, inflammation RVR, seizures, chronic encephalomalacia, -05/14: intubated in the ER - 05/18 extubated Continue bronchodilators 05/14/2024 CTA chest: negative PE and showed bilateral pleural effusions 05/20/24 showed Pulm edema Continue Lasix (3) Acute alteration in mental status: Code(s): R41.82 - Altered mental status, unspecified Status: Acute Assessment and Plan: RESOLVED Elevated LFTs, could be related to hypoxia, hyponatremia -ammonia levels were normal, -patient currently following commands, will continue to monitor 05/14/2024 CT brain: IMPRESSION: 1. 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 2. Small lateral and third ventricles, which is a change from the prior exam. Shunt catheter unchanged in position. (4) Pneumonia: Qualifiers: Pneumonia type: due to unspecified organism Laterality: bilateral Lung location: lower lobe of lung Qualified Code(s): J18.9 - Pneumonia, unspecified organism Code(s): J18.9 - Pneumonia, unspecified organism Status: Acute Assessment and Plan: Continue antibiotics as above Sputum cultures negative (5) Hyponatremia: Code(s): E87.1 - Hypo-osmolality and hyponatremia Status: Acute Assessment and Plan: Hyponatremia, multifactorial, could be related to pneumonia, SIADH, history of TBI, patient does have a history of hyponatremia in 2019, 2019, 2022 Improved. Now off of all fluids Monitor Nephrology following (6) Atrial fibrillation with rapid ventricular response: Code(s): I48.91 - Unspecified atrial fibrillation Status: Acute Assessment and Plan: Ventricular rate improved now. On ELiquis and Metoprolol 200mg daily and IV digoxin per cardiology ECHO showed ED 35-40% and moderate to severe mitral valve regurge also severe pulm hypertension with PASP 72mmHg Cardiology considering OUMOU with cardioversion monitor (7) Acute brachiocephalic vein thrombosis: Code(s): I82.290 - Acute embolism and thrombosis of other thoracic veins Status: Acute Assessment and Plan: Patient's face was cyanotic, CTA chest showed complete occlusion of distal left brachiocephalic vein, -hospitalist discussed with Vascular surgery at [facility] ([facility]), Dr. Laird, the surgeon reviewed images, recommended heparin gtt only. No interventions indicated at this time. -s/p Heparin infusion, now on Eliquis hematology evaluated and recommended long-term anticoagulation (8) Mitral regurgitation: Code(s): I34.0 - Nonrheumatic mitral (valve) insufficiency Status: Acute Assessment and Plan: Lasix IV Plan Cardiomyopathy ?Likely induced by tachycardia EF 35-40% Continue Jardiance, Spironolactone, Metoprolol, and IV Lasix cardiology following DVT prophylaxis: Eliquis Stress ulcer prophylaxis: Protonix IV Nutrition: Speech consult for swallow evaluation Code Status: Full code Subjective Date/time seen: 05/22/24 14:17 Interval history: Comfortable at bedside, cardiology adjusting rate control meds Review of Systems Review of Systems: All systems reviewed & are unremarkable except as noted in HPI and below (HPI) ROS unobtainable: Yes unobtainable due to endotracheal tube and unobtainable due to medical condition Exam Narrative: General: Patient is alert awake in no distress HEENT:? Pupils equal reactive, sclera is clear, ETT in place Neck:? Tracheostomy scar noted Respiratory:? Coarse breath sounds bilateral bases, adequate air entry, no wheezing Cardiac:? Irregularly irregular, rate controlled Abdomen:? Soft, nontender, nondistended, normoactive bowel sounds NG tube in place Extremities:? Palpable pedal pulses, left knee more boggy with surgical scar. Right knee erythematous, warm Neuro:? AO x3, moves all 4 extremities follow command Skin:? Erythematous skin on right knee, no other skin lesions noted Psych:? Normal speech and affect Const: General: comfortable and no acute distress Other: , male, ill appearing HENMT: Face/Nose/Sinus: Normal nares present Mouth: Yes dry mucous membranes Other: ETT in place Eyes: General: appearance normal, both eyes and all related structures Sclera: sclerae normal Pupils: Equal, round and reactive pupils present Other: pupils pinpoint. Resp: Effort & Inspection: normal respiratory effort Other: faint bibasilar crackles, no wheezing. tolerated vent well. Cardio: Rate: tachycardic Rhythm: abnormal rhythm Other: no murmur. GI: Other: abdomen soft, nondistended. Normoactive BS in all quadrants. Urinary Catheter: Urinary Catheter: patent and draining Skin: Other: ecchymosis in various stages of healing and erythema to bilateral knees, erythema worse compared to initial exam that took place post-intubation. no drainage. no other macular/erythematous patches. Neuro: Cranial nerves: Yes Equal, round and reactive pupils present Other: moving all extremities. reacts to pain. intubated/sedated. Extrem: Other: faintly palpable DP pulses bilaterally, R stronger than L. 2+ pitting edema to BLE, symmetric. Psych: Other: unable to assess Objective Data Vital Signs Vital Signs: Vital Signs - 24 hr 05/21/24 14:26 05/21/24 16:00 05/21/24 16:00 Temperature 97.5 F L Pulse Rate 111 H 100 101 H Respiratory Rate 20 26 H Blood Pressure 140/98 H Pulse Oximetry 98 Oxygen Delivery Oxygen Flow Rate Fraction of Inspired Oxygen 05/21/24 16:00 05/21/24 18:00 05/21/24 19:24 Temperature Pulse Rate 101 H 102 H Respiratory Rate 26 H Blood Pressure Pulse Oximetry 98 94 Oxygen Delivery Nasal Cannula Nasal Cannula Oxygen Flow Rate 2 2 Fraction of Inspired Oxygen 28 28 05/21/24 19:24 05/21/24 19:34 05/21/24 20:00 Temperature 97.4 F L Pulse Rate 96 92 102 H Respiratory Rate 20 20 20 Blood Pressure 147/97 H Pulse Oximetry 96 Oxygen Delivery Oxygen Flow Rate Fraction of Inspired Oxygen 05/21/24 20:00 05/21/24 20:45 05/21/24 22:00 Temperature Pulse Rate 101 H 102 H 99 Respiratory Rate 20 Blood Pressure Pulse Oximetry 96 Oxygen Delivery Nasal Cannula Oxygen Flow Rate 2 Fraction of Inspired Oxygen 05/21/24 23:53 05/22/24 00:00 05/22/24 01:00 Temperature 98 F Pulse Rate 90 90 90 Respiratory Rate 20 20 Blood Pressure 138/85 Pulse Oximetry 98 98 Oxygen Delivery Nasal Cannula Oxygen Flow Rate 2 Fraction of Inspired Oxygen 05/22/24 02:00 05/22/24 02:00 05/22/24 02:00 Temperature Pulse Rate 99 91 Respiratory Rate 16 Blood Pressure Pulse Oximetry 95 Oxygen Delivery Nasal Cannula Oxygen Flow Rate 1 Fraction of Inspired Oxygen 24 05/22/24 02:10 05/22/24 04:00 05/22/24 04:00 Temperature 97.4 F L Pulse Rate 88 97 83 Respiratory Rate 16 20 Blood Pressure 110/92 H Pulse Oximetry 97 Oxygen Delivery Oxygen Flow Rate Fraction of Inspired Oxygen 05/22/24 05:15 05/22/24 06:00 05/22/24 07:43 Temperature 98.3 F Pulse Rate 87 87 96 Respiratory Rate 18 14 Blood Pressure 147/93 H Pulse Oximetry 100 100 Oxygen Delivery Nasal Cannula Oxygen Flow Rate 1 Fraction of Inspired Oxygen 05/22/24 08:14 05/22/24 09:00 05/22/24 09:59 Temperature Pulse Rate 90 121 H 118 H Respiratory Rate 18 20 Blood Pressure 121/92 H Pulse Oximetry 99 Oxygen Delivery Oxygen Flow Rate Fraction of Inspired Oxygen 05/22/24 10:17 05/22/24 11:45 05/22/24 14:14 Temperature 98.7 F Pulse Rate 94 93 104 H Respiratory Rate 20 18 Blood Pressure 120/91 H Pulse Oximetry 100 Oxygen Delivery Oxygen Flow Rate Fraction of Inspired Oxygen Intake/Output Intake/Output: Intake & Output 05/19/24 05/20/24 05/21/24 05/22/24 23:59 23:59 23:59 23:59 Intake Total 1636.6 1670 2270 950 Output Total 1450 4913 3740 1300 Balance 186.6 -5080 -2180 -350 Meds/Results Medications: Active Medications Generic Name Dose Route Start Last Admin Trade Name Freq PRN Reason Stop Dose Admin Acetaminophen 650 mg 05/19/24 12:03 Acetaminophen 325 Mg Tablet PO Q6H PRN Mild Pain (1-3) or Fever Apixaban 5 mg 05/19/24 21:00 05/22/24 10:00 Apixaban 5 Mg Tablet PO 5 mg Q12HR DAKHSA Administration Dextrose 12.5 gm 05/15/24 19:27 Dextrose 50% 25 Gm/50 Ml Syringe IV PUSH PRN PRN Hypoglycemia Protocol Digoxin 250 mcg 05/22/24 09:45 05/22/24 10:17 Digoxin 250 Mcg Tablet PO 250 mcg QAM DAKSHA Administration Empagliflozin 10 mg 05/21/24 09:00 05/22/24 09:59 Empagliflozin 10 Mg Tablet PO 10 mg DAILY DAKSHA Administration Furosemide 40 mg 05/21/24 09:00 05/22/24 10:00 Furosemide Inj 40 Mg/4 Ml Vial IV PUSH 40 mg DAILY DAKSHA Administration Glucagon 1 mg 05/15/24 19:27 Glucagon For Inj 1 Mg Vial IM PRN PRN Hypoglycemia Protocol Glucose 15 gm 05/15/24 19:27 Glucose Oral Gel 15 Gm Of Glucse In 37.5 Gm Tube PO PRN PRN Hypoglycemia Protocol Dextrose 1,000 mls @ 100 mls/hr 05/15/24 19:27 Dextrose 5% 1,000 Ml IVPB PRN PRN Hypoglycemia Protocol Ipratropium [place] 0.5 mg 05/15/24 14:00 05/22/24 14:14 Ipratropium Br 0.02% Inh Soln 0.5 Mg/2.5 Ml Vial INHALATION 0.5 mg Q6HRT DAKSHA Administration Levalbuterol HCl 0.63 mg 05/15/24 14:00 05/22/24 14:14 Levalbuterol Neb 1.25 Mg/3 Ml INHALATION 0.63 mg Q6HRT DAKSHA Administration Metoprolol Succinate 200 mg 05/20/24 09:00 05/22/24 09:59 Metoprolol Succinate Ext Rel 100 Mg Tabcr PO 200 mg QAM DAKSHA Administration Metoprolol Tartrate 5 mg 05/18/24 14:11 05/18/24 14:24 Metoprolol Tartrate Inj 5 Mg/5 Ml Vial IV PUSH 5 mg Q4H PRN Administration persistent tachycardia, >120 Pantoprazole Sodium 40 mg 05/20/24 09:00 05/22/24 09:59 Pantoprazole 40 Mg Tablet PO 40 mg QAM DAKSHA Administration Polyethylene Glycol 17 gm 05/18/24 08:04 Polyethylene Glycol 3350 17 Gm Powd.Pack PO QAM PRN COnstipation Sacubitril/Valsartan 1 tab 05/19/24 21:00 05/22/24 10:00 Sacubitril/Valsartan 24-26 Mg Tablet PO 1 tab Q12HR DAKSHA Administration Senna/Docusate Sodium 1 tab 05/18/24 08:04 Senna/Docusate Sodium Tablet PO DAILY PRN Constipation Spironolactone 25 mg 05/21/24 11:05 05/22/24 10:00 Spironolactone 25 Mg Tablet PO 25 mg QAM DAKSHA Administration Radiology Results: ITS Impressions Abdomen/Pelvis CT 05/14/24 13:28 IMPRESSION: 1. Pulmonary edema. 2. Small pleural effusions. 3. Small volume of ascites. Head CT 05/14/24 15:43 IMPRESSION: 1. 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 2. Small lateral and third ventricles, which is a change from the prior exam. Shunt catheter unchanged in position. Chest CTA 05/14/24 15:49 IMPRESSION: 1. No evident pulmonary embolism. Sensitivity decreased in the segmental pulmonary arteries and nondiagnostic in many of the smaller subsegmental pulmonary arteries particularly in the lung bases due to combination of suboptimal contrast opacification, respiratory motion and streak artifact. 2. Small to moderate-sized bilateral pleural effusions with dependent compressive atelectasis. Difficult to exclude superimposed pneumonia although suspicion is low. 3. Cardiomegaly. 4. 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 Nasogastric tube in stomach. 2. Cardiomegaly. 3. Retrocardiac opacity left lower lung zone which could represent persistent small pleural effusion, atelectasis or pneumonia. Venous Doppler Study 05/15/24 12:29 IMPRESSION: 1. No deep venous thrombosis in either lower limb. Modified Barium Swallow 05/18/24 15:18 IMPRESSION: 1. Normal modified barium swallow. 2. Please refer to the speech therapy report for recommendations. Chest X-Ray 05/20/24 06:14 Impression: Probable bibasilar mild pulmonary edema, left worse than right. Correlate clinically for pneumonia. Labs Labs: Laboratory Results - last 24 hr 05/22/24 03:58 WBC 14.9 H RBC 4.64 Hgb 15.2 Hct 44.5 MCV 95.9 MCH 32.8 MCHC 34.2 RDW 13.1 Plt Count 245 MPV 10.7 H Immature Gran % (Auto) 0.7 H Neut % (Auto) 70.3 Lymph % (Auto) 11.0 L [place] % (Auto) 14.5 H Eos % (Auto) 2.9 Baso % (Auto) 0.6 Lymph # (Auto) 1.64 [place] # (Auto) 2.2 H Eos # (Auto) 0.4 H Baso # (Auto) 0.1 Abs Immat Gran (auto) 0.11 H Absolute Neuts (auto) 10.5 H Absolute Nucleated RBC 0.000 Nucleated RBC % 0.0 Sodium 133 L Potassium 3.8 Chloride 94 L Carbon Dioxide 28 Anion Gap 11 BUN 23 H Creatinine 0.60 L Estim Creat Clear Calc 129 Estimated GFR > 60 Glucose 101 Calcium 8.9 Magnesium 2.0 Total Bilirubin 0.8 AST 61 H ALT 132 H Alkaline Phosphatase 83 Total Protein 7.0 Albumin 3.6 Quality VTE Prophylaxis VTE prophylaxis: pharmacologic ordered
[2024-05-23] VITALS (25 sets, daily range): BP systolic 113–151; BP diastolic 77–108; PULSE 54–112; RESP 18–22; TEMP 36.6–37.1; O2SAT 94–99
[2024-05-23] MEDS: IPRATROPIUM BR 0.02% INH SOLN 0.5 MG/2.5 ML VIAL INHALATION ×4 (01:30→20:45)
[2024-05-23] MEDS: LEVALBUTEROL NEB 1.25 MG/3 ML 0.63 MG INHALATION ×4 (01:30→20:45)
--- NOTE | 2024-05-23 01:42 | PC.NURSE ---
Daylight Savings Time For Daylight Savings Time Ending in the Fall - Clocks are moved back. For Daylight Savings Time Beginning in the Spring - Clocks are moved ahead. For [facility], the time of change occurs at 0200 hrs. Time is taken from the oil prospecting observer. This entry on the patient's chart recognizes the change in time reflected during documentation. Example: 2 entries for vital signs may be charted for 0200 hrs.
[2024-05-23 04:21] LABS: Basophils Absolute Auto 0.1 K/mm3 (0.0-0.1); Basophils Percent Auto 0.6 % (0.2-1.2); Eosinophils Absolute Auto 0.4 K/mm3 (0-0.3); Eosinophils Percent Auto 2.7 % (0-4.4); Hematocrit 43.9 % (42.0-52.0); Hemoglobin 14.9 g/dL (14.0-18.0); Immature Granulocyte Absolute 0.08 K/mm3 (0.00-0.031); Immature Granulocyte Percent A 0.6 % (0-0.5); Lymphocytes Absolute Auto 2.18 K/mm3 (0.9-3.2); Lymphocytes Percent Auto 15.2 % (18.3-44.2); Mean Corpuscular HGB Conc 33.9 g/dl (32-36); Mean Corpuscular Hemoglobin 32.7 pg (26-34); Mean Corpuscular Volume 96.3 fl (80-100); Mean Platelet Volume 10.7 fl (7.4-10.4); Monocytes Absolute Auto 2.2 K/mm3 (0.1-0.6); Monocytes Percent Auto 15.5 % (2.6-8.5); Neutrophils Absolute Auto 9.4 K/mm3 (1.3-6.7); Neutrophils Percent Auto 65.4 % (45.5-73.1); Platelet Count Result 237 k/mm3 (150-375); Red Blood Count 4.56 M/mm3 (4.6-6.20); Red Cell Distribution Width 13.3 % (11.5-14.5); White Blood Count 14.3 K/mm3 (4.5-10.0)
[2024-05-23 04:31] LABS: Alanine Aminotransferase 117 U/L (6-50); Albumin Level 3.6 g/dL (3.5-5.1); Alkaline Phosphatase 84 U/L (38-126); Anion Gap 7 mmol/L (4-12); Aspartate Amino Transferase 54 U/L (17-59); Bilirubin,Total 0.7 mg/dL (0.2-1.3); Blood Urea Nitrogen 24 mg/dL (9-20); Calcium 8.6 mg/dL (8.4-10.2); Carbon Dioxide 29 mmol/L (22-30); Chloride 96 mmol/L (98-107); Estimated CRCL calculation 122 ml/min; Estimated Glomerular Filt Rate > 60; Glucose 103 mg/dL (65-110); Potassium 3.5 mmol/L (3.4-5.0); Sodium 132 mmol/L (137-145)
[2024-05-23] MEDS: METOPROLOL SUCCINATE EXT REL 100 MG TABCR 200 MG PO (08:46)
[2024-05-23] MEDS: EMPAGLIFLOZIN 10 MG TABLET PO (08:46)
[2024-05-23] MEDS: APIXABAN 5 MG TABLET PO ×2 (08:46→23:24)
[2024-05-23] MEDS: SPIRONOLACTONE 25 MG TABLET PO (08:47)
[2024-05-23] MEDS: DIGOXIN 250 MCG TABLET PO (08:47)
[2024-05-23] MEDS: PANTOPRAZOLE 40 MG TABLET PO (08:47)
[2024-05-23] MEDS: SACUBITRIL/VALSARTAN 24-26 MG TABLET 1 TAB PO ×2 (08:47→23:24)
[2024-05-23] MEDS: FUROSEMIDE INJ 40 MG/4 ML VIAL IV PUSH (08:47)
--- NOTE | 2024-05-23 09:32 | P.PNCA_ITS ---
Progress Note: A&P Assessment and Plan (1) Atrial fibrillation with rapid ventricular response: Code(s): I48.91 - Unspecified atrial fibrillation Status: Acute (2) Systolic heart failure: Code(s): I50.20 - Unspecified systolic (congestive) heart failure Status: Acute Plan 48-year-old man with chronic atrial fibrillation and marked atrial dilation. As I mentioned in my note yesterday he is only a candidate for rate control and anticoagulation as his AFib is not new. At this time digoxin added to his metoprolol seems to have resulted in very nice heart rate control. This regimen will be continued. His heart rate does accelerate with getting out of bed with physical therapy this is expected and not a reason for great concern. Ranjan Carter MD [facility] Subjective Date/time seen: Date of service: 05/23/24 09:32 Interval history: Follow-up visit in this 48-year-old man with: Atrial fibrillation with rapid ventricular response also with moderate left ventricular systolic dysfunction. Patient is receiving metoprolol and started on some digoxin yesterday for rate control. The patient has been seen today in his chart has been reviewed. He says he feels better today and does not offer any specific cardiac complaints. Resting heart rate is still 120-130 beats per minute. Denies palpitations or dyspnea 05/23/2024 patient is asymptomatic no palpitations no shortness of breath. Telemetry looks much better resting heart rate is in the 90s. Exam Const: General: comfortable and no acute distress HENMT: Mouth: Yes moist mucous membranes Eyes: General: appearance normal, both eyes and all related structures Sclera: sclerae normal EOM: EOMs intact bilaterally Neck: Neck: no JVD Resp: Effort & Inspection: normal respiratory effort Auscultation: clear to auscultation bilaterally and rales Other: On supplemental oxygen Cardio: Rate: regular rate Rhythm: abnormal rhythm irregularly irregular Heart sounds: Murmur heart sound present Other: Grade 3 holosystolic murmur in the apex Neuro: Speech: normal speech Extrem: General: no pedal edema Psych: Mental Status: mental status grossly normal Affect: normal affect Objective Data Vital Signs Vital Signs: Vital Signs - 24 hr 05/22/24 09:00 05/22/24 09:59 05/22/24 10:00 Temperature Pulse Rate 121 H 118 H 118 H Respiratory Rate 20 Blood Pressure 121/92 H Pulse Oximetry 99 Oxygen Delivery Oxygen Flow Rate 05/22/24 10:17 05/22/24 11:45 05/22/24 12:00 Temperature 37.1 C Pulse Rate 94 93 113 H Respiratory Rate 20 Blood Pressure 120/91 H Pulse Oximetry 100 Oxygen Delivery Oxygen Flow Rate 05/22/24 14:00 05/22/24 14:14 05/22/24 16:00 Temperature 37.0 C Pulse Rate 106 H 104 H 96 Respiratory Rate 18 20 Blood Pressure 136/88 Pulse Oximetry 94 Oxygen Delivery Oxygen Flow Rate 05/22/24 16:00 05/22/24 18:00 05/22/24 20:00 Temperature 36.6 C Pulse Rate 91 94 100 Respiratory Rate 16 Blood Pressure 127/94 H Pulse Oximetry 97 Oxygen Delivery Oxygen Flow Rate 05/22/24 20:00 05/22/24 20:07 05/22/24 20:07 Temperature Pulse Rate 80 89 Respiratory Rate 18 Blood Pressure Pulse Oximetry 96 Oxygen Delivery Nasal Cannula Oxygen Flow Rate 1 05/22/24 20:11 05/22/24 20:45 05/22/24 22:00 Temperature Pulse Rate 85 100 95 Respiratory Rate 18 16 Blood Pressure Pulse Oximetry 97 Oxygen Delivery Nasal Cannula Oxygen Flow Rate 1 05/22/24 23:40 05/23/24 00:00 05/23/24 00:00 Temperature 36.6 C Pulse Rate 93 93 94 Respiratory Rate 20 20 Blood Pressure 144/97 H Pulse Oximetry 96 96 Oxygen Delivery Room Air Oxygen Flow Rate 05/23/24 01:32 05/23/24 01:40 05/23/24 01:45 Temperature Pulse Rate 86 79 83 Respiratory Rate 18 18 Blood Pressure Pulse Oximetry Oxygen Delivery Oxygen Flow Rate 05/23/24 04:00 05/23/24 04:00 05/23/24 05:00 Temperature 36.9 C Pulse Rate 81 84 81 Respiratory Rate 20 20 Blood Pressure 146/108 H Pulse Oximetry 94 94 Oxygen Delivery Room Air Oxygen Flow Rate 05/23/24 05:40 05/23/24 07:50 05/23/24 07:53 Temperature 36.6 C Pulse Rate 83 85 93 Respiratory Rate 20 18 Blood Pressure 151/101 H Pulse Oximetry 95 Oxygen Delivery Oxygen Flow Rate 05/23/24 07:55 05/23/24 08:02 05/23/24 08:46 Temperature Pulse Rate 95 99 Respiratory Rate 18 Blood Pressure Pulse Oximetry 96 Oxygen Delivery Room Air Oxygen Flow Rate 05/23/24 08:47 Temperature Pulse Rate 99 Respiratory Rate Blood Pressure Pulse Oximetry Oxygen Delivery Oxygen Flow Rate Intake/Output Intake/Output: Intake & Output 05/20/24 05/21/24 05/22/24 05/24/24 23:59 23:59 23:59 00:59 Intake Total 1670 2270 1980 960 Output Total 6750 4450 1300 1550 Balance -5080 -2180 680 -590 Meds/Results Medications: Active Medications Generic Name Dose Route Start Last Admin Trade Name Freq PRN Reason Stop Dose Admin Acetaminophen 650 mg 05/19/24 12:03 Acetaminophen 325 Mg Tablet PO Q6H PRN Mild Pain (1-3) or Fever Apixaban 5 mg 05/19/24 21:00 05/23/24 08:46 Apixaban 5 Mg Tablet PO 5 mg Q12HR DAKSHA Administration Dextrose 12.5 gm 05/15/24 19:27 Dextrose 50% 25 Gm/50 Ml Syringe IV PUSH PRN PRN Hypoglycemia Protocol Digoxin 250 mcg 05/22/24 09:45 05/23/24 08:47 Digoxin 250 Mcg Tablet PO 250 mcg QAM DAKSHA Administration Empagliflozin 10 mg 05/21/24 09:00 05/23/24 08:46 Empagliflozin 10 Mg Tablet PO 10 mg DAILY DAKSHA Administration Furosemide 40 mg 05/21/24 09:00 05/23/24 08:47 Furosemide Inj 40 Mg/4 Ml Vial IV PUSH 40 mg DAILY DAKSHA Administration Glucagon 1 mg 05/15/24 19:27 Glucagon For Inj 1 Mg Vial IM PRN PRN Hypoglycemia Protocol Glucose 15 gm 05/15/24 19:27 Glucose Oral Gel 15 Gm Of Glucse In 37.5 Gm Tube PO PRN PRN Hypoglycemia Protocol Dextrose 1,000 mls @ 100 mls/hr 05/15/24 19:27 Dextrose 5% 1,000 Ml IVPB PRN PRN Hypoglycemia Protocol Ipratropium [place] 0.5 mg 05/15/24 14:00 05/23/24 07:53 Ipratropium Br 0.02% Inh Soln 0.5 Mg/2.5 Ml Vial INHALATION 0.5 mg Q6HRT DAKSHA Administration Levalbuterol HCl 0.63 mg 05/15/24 14:00 05/23/24 07:53 Levalbuterol Neb 1.25 Mg/3 Ml INHALATION 0.63 mg Q6HRT DAKSHA Administration Metoprolol Succinate 200 mg 05/20/24 09:00 05/23/24 08:46 Metoprolol Succinate Ext Rel 100 Mg Tabcr PO 200 mg QAM DAKSHA Administration Metoprolol Tartrate 5 mg 05/18/24 14:11 05/18/24 14:24 Metoprolol Tartrate Inj 5 Mg/5 Ml Vial IV PUSH 5 mg Q4H PRN Administration persistent tachycardia, >120 Pantoprazole Sodium 40 mg 05/20/24 09:00 05/23/24 08:47 Pantoprazole 40 Mg Tablet PO 40 mg QAM DAKSHA Administration Polyethylene Glycol 17 gm 05/18/24 08:04 Polyethylene Glycol 3350 17 Gm Powd.Pack PO QAM PRN COnstipation Sacubitril/Valsartan 1 tab 05/19/24 21:00 05/23/24 08:47 Sacubitril/Valsartan 24-26 Mg Tablet PO 1 tab Q12HR DAKSHA Administration Senna/Docusate Sodium 1 tab 05/18/24 08:04 Senna/Docusate Sodium Tablet PO DAILY PRN Constipation Spironolactone 25 mg 05/21/24 11:05 05/23/24 08:47 Spironolactone 25 Mg Tablet PO 25 mg QAM DAKSHA Administration Radiology Results: ITS Impressions Abdomen/Pelvis CT 05/14/24 13:28 IMPRESSION: 1. Pulmonary edema. 2. Small pleural effusions. 3. Small volume of ascites. Head CT 05/14/24 15:43 IMPRESSION: 1. 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 2. Small lateral and third ventricles, which is a change from the prior exam. Shunt catheter unchanged in position. Chest CTA 05/14/24 15:49 IMPRESSION: 1. No evident pulmonary embolism. Sensitivity decreased in the segmental pulmonary arteries and nondiagnostic in many of the smaller subsegmental pulmonary arteries particularly in the lung bases due to combination of suboptimal contrast opacification, respiratory motion and streak artifact. 2. Small to moderate-sized bilateral pleural effusions with dependent compressive atelectasis. Difficult to exclude superimposed pneumonia although suspicion is low. 3. Cardiomegaly. 4. 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 Nasogastric tube in stomach. 2. Cardiomegaly. 3. Retrocardiac opacity left lower lung zone which could represent persistent small pleural effusion, atelectasis or pneumonia. Venous Doppler Study 05/15/24 12:29 IMPRESSION: 1. No deep venous thrombosis in either lower limb. Modified Barium Swallow 05/18/24 15:18 IMPRESSION: 1. Normal modified barium swallow. 2. Please refer to the speech therapy report for recommendations. Chest X-Ray 05/20/24 06:14 Impression: Probable bibasilar mild pulmonary edema, left worse than right. Correlate clinically for pneumonia. Labs Labs: Laboratory Results - last 24 hr 05/23/24 03:45 WBC 14.3 H RBC 4.56 L Hgb 14.9 Hct 43.9 MCV 96.3 MCH 32.7 MCHC 33.9 RDW 13.3 Plt Count 237 MPV 10.7 H Immature Gran % (Auto) 0.6 H Neut % (Auto) 65.4 Lymph % (Auto) 15.2 L [place] % (Auto) 15.5 H Eos % (Auto) 2.7 Baso % (Auto) 0.6 Lymph # (Auto) 2.18 [place] # (Auto) 2.2 H Eos # (Auto) 0.4 H Baso # (Auto) 0.1 Abs Immat Gran (auto) 0.08 H Absolute Neuts (auto) 9.4 H Absolute Nucleated RBC 0.000 Nucleated RBC % 0.0 Sodium 132 L Potassium 3.5 Chloride 96 L Carbon Dioxide 29 Anion Gap 7 BUN 24 H Creatinine 0.64 L Estim Creat Clear Calc 122 Estimated GFR > 60 Glucose 103 Calcium 8.6 Magnesium 2.0 Total Bilirubin 0.7 AST 54 ALT 117 H Alkaline Phosphatase 84 Total Protein 7.0 Albumin 3.6
[2024-05-23] MEDS: TAMSULOSIN HCL 0.4 MG CAPSULE PO (11:35)
--- NOTE | 2024-05-23 14:33 | PM.IMPN ---
Progress Note: A&P Assessment and Plan (1) Sepsis: Qualifiers: Sepsis type: sepsis due to unspecified organism Sepsis acute organ dysfunction status: with acute organ dysfunction Severe sepsis acute organ dysfunction type: encephalopathy Severe sepsis shock status: without septic shock Qualified Code(s): A41.9 - Sepsis, unspecified organism; R65.20 - Severe sepsis without septic shock; G93.41 - Metabolic encephalopathy Code(s): A41.9 - Sepsis, unspecified organism Status: Acute Assessment and Plan: Patient presented with shortness of breath, generalized weakness, acute altered mental status -tachycardia, elevated WBC count -chest CTA likely pneumonia, possible cellulitis of the right knee -MRSA screen negative, discontinue vancomycin (05/16) -blood pressures have remained stable, patient not requiring pressors -05/14: Blood cultures: Primary cultures are negative -05/15: Sputum cultures are negative -05/15: Bilateral lower extremity venous Dopplers were negative for DVT bilaterally Completed Doxycycline Day 09/20 Cefepime monitor (2) Acute respiratory failure: Code(s): J96.00 - Acute respiratory failure, unspecified whether with hypoxia or hypercapnia Status: Acute Assessment and Plan: Acute respiratory failure could be multifactorial, inflammation RVR, seizures, chronic encephalomalacia, -05/14: intubated in the ER - 05/18 extubated Continue bronchodilators 05/14/2024 CTA chest: negative PE and showed bilateral pleural effusions 05/20/24 showed Pulm edema Continue Lasix (3) Acute alteration in mental status: Code(s): R41.82 - Altered mental status, unspecified Status: Acute Assessment and Plan: RESOLVED Elevated LFTs, could be related to hypoxia, hyponatremia -ammonia levels were normal, -patient currently following commands, will continue to monitor 05/14/2024 CT brain: IMPRESSION: 1. 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 2. Small lateral and third ventricles, which is a change from the prior exam. Shunt catheter unchanged in position. (4) Pneumonia: Qualifiers: Pneumonia type: due to unspecified organism Laterality: bilateral Lung location: lower lobe of lung Qualified Code(s): J18.9 - Pneumonia, unspecified organism Code(s): J18.9 - Pneumonia, unspecified organism Status: Acute Assessment and Plan: Continue antibiotics as above Sputum cultures negative (5) Hyponatremia: Code(s): E87.1 - Hypo-osmolality and hyponatremia Status: Acute Assessment and Plan: resolving Na 132 Nephrology following (6) Atrial fibrillation with rapid ventricular response: Code(s): I48.91 - Unspecified atrial fibrillation Status: Acute Assessment and Plan: Ventricular rate improved now. On ELiquis and Metoprolol 200mg daily and IV digoxin per cardiology ECHO showed ED 35-40% and moderate to severe mitral valve regurge also severe pulm hypertension with PASP 72mmHg Cardiology considering OUMOU with cardioversion monitor (7) Acute brachiocephalic vein thrombosis: Code(s): I82.290 - Acute embolism and thrombosis of other thoracic veins Status: Acute Assessment and Plan: Patient's face was cyanotic, CTA chest showed complete occlusion of distal left brachiocephalic vein, -hospitalist discussed with Vascular surgery at [facility] ([facility]), Dr. Laird, the surgeon reviewed images, recommended heparin gtt only. No interventions indicated at this time. -s/p Heparin infusion, now on Eliquis hematology evaluated and recommended long-term anticoagulation (8) Mitral regurgitation: Code(s): I34.0 - Nonrheumatic mitral (valve) insufficiency Status: Acute Assessment and Plan: Lasix IV Plan Cardiomyopathy ?Likely induced by tachycardia EF 35-40% Continue Jardiance, Spironolactone, Metoprolol, and IV Lasix cardiology following DVT prophylaxis: Eliquis Stress ulcer prophylaxis: Protonix IV Nutrition: Speech consult for swallow evaluation Code Status: Full code Subjective Date/time seen: 05/23/24 14:33 Interval history: patient feeling progressively better by the day HR is better with Digoxin Review of Systems Review of Systems: All systems reviewed & are unremarkable except as noted in HPI and below (HPI) ROS unobtainable: Yes unobtainable due to endotracheal tube and unobtainable due to medical condition Exam Narrative: General: Patient is alert awake in no distress HEENT:? Pupils equal reactive, sclera is clear, ETT in place Neck:? Tracheostomy scar noted Respiratory:? Coarse breath sounds bilateral bases, adequate air entry, no wheezing Cardiac:? Irregularly irregular, rate controlled Abdomen:? Soft, nontender, nondistended, normoactive bowel sounds NG tube in place Extremities:? Palpable pedal pulses, left knee more boggy with surgical scar. Right knee erythematous, warm Neuro:? AO x3, moves all 4 extremities follow command Skin:? Erythematous skin on right knee, no other skin lesions noted Psych:? Normal speech and affect Const: General: comfortable and no acute distress Other: , male, ill appearing HENMT: Face/Nose/Sinus: Normal nares present Mouth: Yes dry mucous membranes Other: ETT in place Eyes: General: appearance normal, both eyes and all related structures Sclera: sclerae normal Pupils: Equal, round and reactive pupils present Other: pupils pinpoint. Resp: Effort & Inspection: normal respiratory effort Other: faint bibasilar crackles, no wheezing. tolerated vent well. Cardio: Rate: tachycardic Rhythm: abnormal rhythm Other: no murmur. GI: Other: abdomen soft, nondistended. Normoactive BS in all quadrants. Urinary Catheter: Urinary Catheter: patent and draining Skin: Other: ecchymosis in various stages of healing and erythema to bilateral knees, erythema worse compared to initial exam that took place post-intubation. no drainage. no other macular/erythematous patches. Neuro: Cranial nerves: Yes Equal, round and reactive pupils present Other: moving all extremities. reacts to pain. intubated/sedated. Extrem: Other: faintly palpable DP pulses bilaterally, R stronger than L. 2+ pitting edema to BLE, symmetric. Psych: Other: unable to assess Objective Data Vital Signs Vital Signs: Vital Signs - 24 hr 05/22/24 14:00 05/22/24 14:14 05/22/24 16:00 Temperature 98.6 F Pulse Rate 106 H 104 H 96 Respiratory Rate 18 20 Blood Pressure 136/88 Pulse Oximetry 94 Oxygen Delivery Oxygen Flow Rate Fraction of Inspired Oxygen 05/22/24 16:00 05/22/24 18:00 05/22/24 20:00 Temperature 97.8 F Pulse Rate 91 94 100 Respiratory Rate 16 Blood Pressure 127/94 H Pulse Oximetry 97 Oxygen Delivery Oxygen Flow Rate Fraction of Inspired Oxygen 05/22/24 20:00 05/22/24 20:07 05/22/24 20:07 Temperature Pulse Rate 80 89 Respiratory Rate 18 Blood Pressure Pulse Oximetry 96 Oxygen Delivery Nasal Cannula Oxygen Flow Rate 1 Fraction of Inspired Oxygen 05/22/24 20:11 05/22/24 20:45 05/22/24 22:00 Temperature Pulse Rate 85 100 95 Respiratory Rate 18 16 Blood Pressure Pulse Oximetry 97 Oxygen Delivery Nasal Cannula Oxygen Flow Rate 1 Fraction of Inspired Oxygen 05/22/24 23:40 05/23/24 00:00 05/23/24 00:00 Temperature 97.8 F Pulse Rate 93 93 94 Respiratory Rate 20 20 Blood Pressure 144/97 H Pulse Oximetry 96 96 Oxygen Delivery Room Air Oxygen Flow Rate Fraction of Inspired Oxygen 05/23/24 01:32 05/23/24 01:40 05/23/24 01:45 Temperature Pulse Rate 86 79 83 Respiratory Rate 18 18 Blood Pressure Pulse Oximetry Oxygen Delivery Oxygen Flow Rate Fraction of Inspired Oxygen 05/23/24 04:00 05/23/24 04:00 05/23/24 05:00 Temperature 98.5 F Pulse Rate 81 84 81 Respiratory Rate 20 20 Blood Pressure 146/108 H Pulse Oximetry 94 94 Oxygen Delivery Room Air Oxygen Flow Rate Fraction of Inspired Oxygen 05/23/24 05:40 05/23/24 07:50 05/23/24 07:53 Temperature 97.8 F Pulse Rate 83 85 93 Respiratory Rate 20 18 Blood Pressure 151/101 H Pulse Oximetry 95 Oxygen Delivery Oxygen Flow Rate Fraction of Inspired Oxygen 05/23/24 07:55 05/23/24 08:00 05/23/24 08:00 Temperature Pulse Rate 99 100 Respiratory Rate 18 Blood Pressure Pulse Oximetry 96 96 Oxygen Delivery Room Air Room Air Oxygen Flow Rate Fraction of Inspired Oxygen 24 05/23/24 08:02 05/23/24 08:46 05/23/24 08:47 Temperature Pulse Rate 95 99 99 Respiratory Rate 18 Blood Pressure Pulse Oximetry Oxygen Delivery Oxygen Flow Rate Fraction of Inspired Oxygen 05/23/24 10:00 05/23/24 12:00 05/23/24 12:03 Temperature 98.8 F Pulse Rate 108 H 101 H 54 L Respiratory Rate 20 Blood Pressure 127/92 H Pulse Oximetry 99 Oxygen Delivery Oxygen Flow Rate Fraction of Inspired Oxygen 05/23/24 13:55 05/23/24 14:04 Temperature Pulse Rate 112 H 104 H Respiratory Rate 18 18 Blood Pressure Pulse Oximetry Oxygen Delivery Oxygen Flow Rate Fraction of Inspired Oxygen Intake/Output Intake/Output: Intake & Output 05/20/24 05/21/24 05/22/24 05/24/24 23:59 23:59 23:59 00:59 Intake Total 1670 2270 1980 1200 Output Total 6750 4450 1300 2550 [facility] -5080 -6260 680 -6710 Meds/Results Medications: Active Medications Generic Name Dose Route Start Last Admin Trade Name Freq PRN Reason Stop Dose Admin Acetaminophen 650 mg 05/19/24 12:03 Acetaminophen 325 Mg Tablet PO Q6H PRN Mild Pain (1-3) or Fever Apixaban 5 mg 05/19/24 21:00 05/23/24 08:46 Apixaban 5 Mg Tablet PO 5 mg Q12HR DAKSHA Administration Dextrose 12.5 gm 05/15/24 19:27 Dextrose 50% 25 Gm/50 Ml Syringe IV PUSH PRN PRN Hypoglycemia Protocol Digoxin 250 mcg 05/22/24 09:45 05/23/24 08:47 Digoxin 250 Mcg Tablet PO 250 mcg QAM DAKSHA Administration Empagliflozin 10 mg 05/21/24 09:00 05/23/24 08:46 Empagliflozin 10 Mg Tablet PO 10 mg DAILY DAKSHA Administration Furosemide 40 mg 05/21/24 09:00 05/23/24 08:47 Furosemide Inj 40 Mg/4 Ml Vial IV PUSH 40 mg DAILY DAKSHA Administration Glucagon 1 mg 05/15/24 19:27 Glucagon For Inj 1 Mg Vial IM PRN PRN Hypoglycemia Protocol Glucose 15 gm 05/15/24 19:27 Glucose Oral Gel 15 Gm Of Glucse In 37.5 Gm Tube PO PRN PRN Hypoglycemia Protocol Dextrose 1,000 mls @ 100 mls/hr 05/15/24 19:27 Dextrose 5% 1,000 Ml IVPB PRN PRN Hypoglycemia Protocol Ipratropium [place] 0.5 mg 05/15/24 14:00 05/23/24 13:55 Ipratropium Br 0.02% Inh Soln 0.5 Mg/2.5 Ml Vial INHALATION 0.5 mg Q6HRT DAKSHA Administration Levalbuterol HCl 0.63 mg 05/15/24 14:00 05/23/24 13:55 Levalbuterol Neb 1.25 Mg/3 Ml INHALATION 0.63 mg Q6HRT DAKSHA Administration Metoprolol Succinate 200 mg 05/20/24 09:00 05/23/24 08:46 Metoprolol Succinate Ext Rel 100 Mg Tabcr PO 200 mg QAM DAKSHA Administration Metoprolol Tartrate 5 mg 05/18/24 14:11 05/18/24 14:24 Metoprolol Tartrate Inj 5 Mg/5 Ml Vial IV PUSH 5 mg Q4H PRN Administration persistent tachycardia, >120 Pantoprazole Sodium 40 mg 05/20/24 09:00 05/23/24 08:47 Pantoprazole 40 Mg Tablet PO 40 mg QAM DAKSHA Administration Polyethylene Glycol 17 gm 05/18/24 08:04 Polyethylene Glycol 3350 17 Gm Powd.Pack PO QAM PRN COnstipation Sacubitril/Valsartan 1 tab 05/19/24 21:00 05/23/24 08:47 Sacubitril/Valsartan 24-26 Mg Tablet PO 1 tab Q12HR DAKSHA Administration Senna/Docusate Sodium 1 tab 05/18/24 08:04 Senna/Docusate Sodium Tablet PO DAILY PRN Constipation Spironolactone 25 mg 05/21/24 11:05 05/23/24 08:47 Spironolactone 25 Mg Tablet PO 25 mg QAM DAKSHA Administration Tamsulosin HCl 0.4 mg 05/24/24 09:00 Tamsulosin Hcl 0.4 Mg Capsule PO QAM [facility] Radiology Results: ITS Impressions Abdomen/Pelvis CT 05/14/24 13:28 IMPRESSION: 1. Pulmonary edema. 2. Small pleural effusions. 3. Small volume of ascites. Head CT 05/14/24 15:43 IMPRESSION: 1. 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 2. Small lateral and third ventricles, which is a change from the prior exam. Shunt catheter unchanged in position. Chest CTA 05/14/24 15:49 IMPRESSION: 1. No evident pulmonary embolism. Sensitivity decreased in the segmental pulmonary arteries and nondiagnostic in many of the smaller subsegmental pulmonary arteries particularly in the lung bases due to combination of suboptimal contrast opacification, respiratory motion and streak artifact. 2. Small to moderate-sized bilateral pleural effusions with dependent compressive atelectasis. Difficult to exclude superimposed pneumonia although suspicion is low. 3. Cardiomegaly. 4. 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 Nasogastric tube in stomach. 2. Cardiomegaly. 3. Retrocardiac opacity left lower lung zone which could represent persistent small pleural effusion, atelectasis or pneumonia. Venous Doppler Study 05/15/24 12:29 IMPRESSION: 1. No deep venous thrombosis in either lower limb. Modified Barium Swallow 05/18/24 15:18 IMPRESSION: 1. Normal modified barium swallow. 2. Please refer to the speech therapy report for recommendations. Chest X-Ray 05/20/24 06:14 Impression: Probable bibasilar mild pulmonary edema, left worse than right. Correlate clinically for pneumonia. Labs Labs: Laboratory Results - last 24 hr 05/23/24 03:45 WBC 14.3 H RBC 4.56 L Hgb 14.9 Hct 43.9 MCV 96.3 MCH 32.7 MCHC 33.9 RDW 13.3 Plt Count 237 MPV 10.7 H Immature Gran % (Auto) 0.6 H Neut % (Auto) 65.4 Lymph % (Auto) 15.2 L [place] % (Auto) 15.5 H Eos % (Auto) 2.7 Baso % (Auto) 0.6 Lymph # (Auto) 2.18 [place] # (Auto) 2.2 H Eos # (Auto) 0.4 H Baso # (Auto) 0.1 Abs Immat Gran (auto) 0.08 H Absolute Neuts (auto) 9.4 H Absolute Nucleated RBC 0.000 Nucleated RBC % 0.0 Sodium 132 L Potassium 3.5 Chloride 96 L Carbon Dioxide 29 Anion Gap 7 BUN 24 H Creatinine 0.64 L Estim Creat Clear Calc 122 Estimated GFR > 60 Glucose 103 Calcium 8.6 Magnesium 2.0 Total Bilirubin 0.7 AST 54 ALT 117 H Alkaline Phosphatase 84 Total Protein 7.0 Albumin 3.6 Quality VTE Prophylaxis VTE prophylaxis: pharmacologic ordered
[2024-05-24] VITALS (12 sets, daily range): BP systolic 119–139; BP diastolic 75–96; PULSE 84–115; RESP 18–24; TEMP 36.6–36.8; O2SAT 95–99
[2024-05-24] MEDS: LEVALBUTEROL NEB 1.25 MG/3 ML 0.63 MG INHALATION ×3 (01:52→13:27)
[2024-05-24] MEDS: IPRATROPIUM BR 0.02% INH SOLN 0.5 MG/2.5 ML VIAL INHALATION ×3 (01:52→13:27)
[2024-05-24 04:57] LABS: Basophils Absolute Auto 0.1 K/mm3 (0.0-0.1); Basophils Percent Auto 0.9 % (0.2-1.2); Eosinophils Absolute Auto 0.4 K/mm3 (0-0.3); Eosinophils Percent Auto 2.7 % (0-4.4); Hematocrit 44.1 % (42.0-52.0); Hemoglobin 14.7 g/dL (14.0-18.0); Immature Granulocyte Absolute 0.08 K/mm3 (0.00-0.031); Immature Granulocyte Percent A 0.6 % (0-0.5); Lymphocytes Absolute Auto 2.16 K/mm3 (0.9-3.2); Lymphocytes Percent Auto 16.2 % (18.3-44.2); Mean Corpuscular HGB Conc 33.3 g/dl (32-36); Mean Corpuscular Hemoglobin 32.1 pg (26-34); Mean Corpuscular Volume 96.3 fl (80-100); Mean Platelet Volume 10.6 fl (7.4-10.4); Monocytes Absolute Auto 2.1 K/mm3 (0.1-0.6); Monocytes Percent Auto 15.6 % (2.6-8.5); Neutrophils Absolute Auto 8.5 K/mm3 (1.3-6.7); Platelet Count Result 262 k/mm3 (150-375); Red Blood Count 4.58 M/mm3 (4.6-6.20); Red Cell Distribution Width 13.2 % (11.5-14.5); White Blood Count 13.3 K/mm3 (4.5-10.0)
[2024-05-24 05:10] LABS: Alanine Aminotransferase 103 U/L (6-50); Albumin Level 3.7 g/dL (3.5-5.1); Alkaline Phosphatase 79 U/L (38-126); Anion Gap 8 mmol/L (4-12); Aspartate Amino Transferase 48 U/L (17-59); Bilirubin,Total 0.7 mg/dL (0.2-1.3); Blood Urea Nitrogen 33 mg/dL (9-20); Carbon Dioxide 31 mmol/L (22-30); Chloride 94 mmol/L (98-107); Estimated CRCL calculation 114 ml/min; Estimated Glomerular Filt Rate > 60; Glucose 103 mg/dL (65-110); Magnesium 2.1 mg/dL (1.6-2.3); Potassium 3.7 mmol/L (3.4-5.0); Sodium 133 mmol/L (137-145)
[2024-05-24] MEDS: SPIRONOLACTONE 25 MG TABLET PO (08:28)
[2024-05-24] MEDS: EMPAGLIFLOZIN 10 MG TABLET PO (08:28)
[2024-05-24] MEDS: METOPROLOL SUCCINATE EXT REL 100 MG TABCR 200 MG PO (08:28)
[2024-05-24] MEDS: DIGOXIN 250 MCG TABLET PO (08:28)
[2024-05-24] MEDS: TAMSULOSIN HCL 0.4 MG CAPSULE PO (08:28)
[2024-05-24] MEDS: APIXABAN 5 MG TABLET PO (08:29)
[2024-05-24] MEDS: PANTOPRAZOLE 40 MG TABLET PO (08:29)
[2024-05-24] MEDS: FUROSEMIDE INJ 40 MG/4 ML VIAL IV PUSH (08:29)
[2024-05-24] MEDS: SACUBITRIL/VALSARTAN 24-26 MG TABLET 1 TAB PO (08:29)
--- NOTE | 2024-05-24 10:09 | PM.PNCARD ---
Progress Note: A&P Assessment and Plan (1) Systolic heart failure: Code(s): I50.20 - Unspecified systolic (congestive) heart failure Status: Acute (2) Hypertension: Qualifiers: Hypertension type: unspecified Qualified Code(s): I10 - Essential (primary) hypertension Code(s): I10 - Essential (primary) hypertension Status: Chronic (3) Pulmonary hypertension: Code(s): I27.20 - Pulmonary hypertension, unspecified Status: Acute (4) Mitral regurgitation: Code(s): I34.0 - Nonrheumatic mitral (valve) insufficiency Status: Acute (5) Atrial fibrillation with rapid ventricular response: Code(s): I48.91 - Unspecified atrial fibrillation Status: Acute Plan 48-year-old man with traumatic brain injury, brain aneurysm status post surgery (at age 12), hypertension, ulcerative colitis, and seizures initially presented with worsening shortness of breath and generalized weakness Acute chronic systolic heart failure -he is now more euvolemic and we can transition him to Lasix 40 mg oral daily which she can be discharged on -continue Entresto 24-26 mg p.o. b.i.d., Toprol 200 mg p.o. daily, Jardiance 10 mg p.o. daily, spironolactone 25 mg p.o. daily Persistent atrial fibrillation -Eliquis 5 mg p.o. b.i.d., Toprol 200 mg p.o. daily, and digoxin 250 mcg PO daily -his ventricular rates are acceptable at this time can be discharged Moderate to severe mitral regurgitation -will re-evaluate once he is euvolemic and on guideline directed medical therapy in outpatient setting Pulmonary hypertension -most likely secondary to left-sided heart disease and will re-evaluate once he is euvolemic and has been trialed on guideline directed medical therapy in the outpatient setting No further inpatient cardiac workup/therapy required at this time. He can follow-up with [facility] outpatient Subjective Date/time seen: 05/24/24 10:09 Interval history: He is doing well without any shortness of breath or chest pain. He recently received breathing therapy. Denies any orthopnea. Was previously on nasal cannula oxygen and is now on room air Review of Systems Cardiovascular: Cardiovascular: Reports as per HPI Respiratory: Respiratory: Reports as per HPI Exam Const: General: comfortable HENMT: Mouth: Yes moist mucous membranes Eyes: EOM: EOMs intact bilaterally Neck: Neck: no JVD Resp: Effort & Inspection: normal respiratory effort Auscultation: clear to auscultation bilaterally Cardio: Rate: regular rate Rhythm: abnormal rhythm Heart sounds: Murmur heart sound present Other: Grade 3/4 holosystolic murmur in the apex GI: GI Palp: Yes Soft to palpation Extrem: General: no pedal edema Objective Data Vital Signs Vital Signs: Vital Signs - 24 hr 05/23/24 12:00 05/23/24 12:03 05/23/24 13:55 Temperature 37.1 C Pulse Rate 101 H 54 L 112 H Respiratory Rate 20 18 Blood Pressure 127/92 H Pulse Oximetry 99 Oxygen Delivery 05/23/24 14:04 05/23/24 16:00 05/23/24 16:00 Temperature 37.1 C Pulse Rate 104 H 95 103 H Respiratory Rate 18 20 Blood Pressure 113/77 Pulse Oximetry 97 Oxygen Delivery 05/23/24 20:00 05/23/24 20:17 05/23/24 20:44 Temperature 37.1 C Pulse Rate 99 97 81 Respiratory Rate 22 H 18 Blood Pressure 114/82 Pulse Oximetry 98 Oxygen Delivery 05/23/24 21:01 05/23/24 22:10 05/24/24 00:00 Temperature Pulse Rate 81 97 91 Respiratory Rate 18 22 H Blood Pressure Pulse Oximetry 98 Oxygen Delivery Room Air 05/24/24 01:53 05/24/24 02:04 05/24/24 04:00 Temperature Pulse Rate 87 87 89 Respiratory Rate 18 18 Blood Pressure Pulse Oximetry Oxygen Delivery 05/24/24 04:25 05/24/24 07:51 05/24/24 08:16 Temperature 36.6 C 36.8 C Pulse Rate 90 97 85 Respiratory Rate 18 24 H 20 Blood Pressure 119/75 139/96 H Pulse Oximetry 98 99 95 Oxygen Delivery Room Air 05/24/24 08:16 05/24/24 08:27 Temperature Pulse Rate 85 108 H Respiratory Rate 20 20 Blood Pressure Pulse Oximetry Oxygen Delivery Intake/Output Intake/Output: Intake & Output 05/21/24 05/22/24 05/24/24 05/24/24 23:59 23:59 00:59 23:59 Intake Total 2270 1980 1560 400 Output Total 4450 1300 3300 950 Balance -2180 982 -1740 -550 Meds/Results Medications: Active Medications Generic Name Dose Route Start Last Admin Trade Name Freq PRN Reason Stop Dose Admin Acetaminophen 650 mg 05/19/24 12:03 Acetaminophen 325 Mg Tablet PO Q6H PRN Mild Pain (1-3) or Fever Apixaban 5 mg 05/19/24 21:00 05/24/24 08:29 Apixaban 5 Mg Tablet PO 5 mg Q12HR DAKSHA Administration Dextrose 12.5 gm 05/15/24 19:27 Dextrose 50% 25 Gm/50 Ml Syringe IV PUSH PRN PRN Hypoglycemia Protocol Digoxin 250 mcg 05/22/24 09:45 05/24/24 08:28 Digoxin 250 Mcg Tablet PO 250 mcg QAM DAKSHA Administration Empagliflozin 10 mg 05/21/24 09:00 05/24/24 08:28 Empagliflozin 10 Mg Tablet PO 10 mg DAILY DAKSHA Administration Furosemide 40 mg 05/25/24 09:00 Furosemide 40 Mg Tablet PO DAILY DAKSHA Glucagon 1 mg 05/15/24 19:27 Glucagon For Inj 1 Mg Vial IM PRN PRN Hypoglycemia Protocol Glucose 15 gm 05/15/24 19:27 Glucose Oral Gel 15 Gm Of Glucse In 37.5 Gm Tube PO PRN PRN Hypoglycemia Protocol Dextrose 1,000 mls @ 100 mls/hr 05/15/24 19:27 Dextrose 5% 1,000 Ml IVPB PRN PRN Hypoglycemia Protocol Ipratropium [place] 0.5 mg 05/15/24 14:00 05/24/24 08:14 Ipratropium Br 0.02% Inh Soln 0.5 Mg/2.5 Ml Vial INHALATION 0.5 mg Q6HRT DAKSHA Administration Levalbuterol HCl 0.63 mg 05/15/24 14:00 05/24/24 08:14 Levalbuterol Neb 1.25 Mg/3 Ml INHALATION 0.63 mg Q6HRT DAKSHA Administration Metoprolol Succinate 200 mg 05/20/24 09:00 05/24/24 08:28 Metoprolol Succinate Ext Rel 100 Mg Tabcr PO 200 mg QAM DAKSHA Administration Metoprolol Tartrate 5 mg 05/18/24 14:11 05/18/24 14:24 Metoprolol Tartrate Inj 5 Mg/5 Ml Vial IV PUSH 5 mg Q4H PRN Administration persistent tachycardia, >120 Pantoprazole Sodium 40 mg 05/20/24 09:00 05/24/24 08:29 Pantoprazole 40 Mg Tablet PO 40 mg QAM DAKSHA Administration Polyethylene Glycol 17 gm 05/18/24 08:04 Polyethylene Glycol 3350 17 Gm Powd.Pack PO QAM PRN COnstipation Sacubitril/Valsartan 1 tab 05/19/24 21:00 05/24/24 08:29 Sacubitril/Valsartan 24-26 Mg Tablet PO 1 tab Q12HR DAKSHA Administration Senna/Docusate Sodium 1 tab 05/18/24 08:04 Senna/Docusate Sodium Tablet PO DAILY PRN Constipation Spironolactone 25 mg 05/21/24 11:05 05/24/24 08:28 Spironolactone 25 Mg Tablet PO 25 mg QAM DAKSHA Administration Tamsulosin HCl 0.4 mg 05/24/24 09:00 05/24/24 08:28 Tamsulosin Hcl 0.4 Mg Capsule PO 0.4 mg QAM DAKSHA Administration Radiology Results: ITS Impressions Abdomen/Pelvis CT 05/14/24 13:28 IMPRESSION: 1. Pulmonary edema. 2. Small pleural effusions. 3. Small volume of ascites. Head CT 05/14/24 15:43 IMPRESSION: 1. 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 2. Small lateral and third ventricles, which is a change from the prior exam. Shunt catheter unchanged in position. Chest CTA 05/14/24 15:49 IMPRESSION: 1. No evident pulmonary embolism. Sensitivity decreased in the segmental pulmonary arteries and nondiagnostic in many of the smaller subsegmental pulmonary arteries particularly in the lung bases due to combination of suboptimal contrast opacification, respiratory motion and streak artifact. 2. Small to moderate-sized bilateral pleural effusions with dependent compressive atelectasis. Difficult to exclude superimposed pneumonia although suspicion is low. 3. Cardiomegaly. 4. 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 Nasogastric tube in stomach. 2. Cardiomegaly. 3. Retrocardiac opacity left lower lung zone which could represent persistent small pleural effusion, atelectasis or pneumonia. Venous Doppler Study 05/15/24 12:29 IMPRESSION: 1. No deep venous thrombosis in either lower limb. Modified Barium Swallow 05/18/24 15:18 IMPRESSION: 1. Normal modified barium swallow. 2. Please refer to the speech therapy report for recommendations. Chest X-Ray 05/20/24 06:14 Impression: Probable bibasilar mild pulmonary edema, left worse than right. Correlate clinically for pneumonia. Labs Labs: Laboratory Results - last 24 hr 05/24/24 04:12 WBC 13.3 H RBC 4.58 L Hgb 14.7 Hct 44.1 MCV 96.3 MCH 32.1 MCHC 33.3 RDW 13.2 Plt Count 262 MPV 10.6 H Immature Gran % (Auto) 0.6 H Neut % (Auto) 64.0 Lymph % (Auto) 16.2 L [place] % (Auto) 15.6 H Eos % (Auto) 2.7 Baso % (Auto) 0.9 Lymph # (Auto) 2.16 [place] # (Auto) 2.1 H Eos # (Auto) 0.4 H Baso # (Auto) 0.1 Abs Immat Gran (auto) 0.08 H Absolute Neuts (auto) 8.5 H Absolute Nucleated RBC 0.000 Nucleated RBC % 0.0 Sodium 133 L Potassium 3.7 Chloride 94 L Carbon Dioxide 31 H Anion Gap 8 BUN 33 H Creatinine 0.69 L Estim Creat Clear Calc 114 Estimated GFR > 60 Glucose 103 Calcium 9.0 Magnesium 2.1 Total Bilirubin 0.7 AST 48 ALT 103 H Alkaline Phosphatase 79 Total Protein 7.0 Albumin 3.7
--- NOTE | 2024-05-24 11:10 | P.PNIM_ITS ---
Subjective Date/time seen: 05/24/24 11:10 Interval history: patient comfortable at bedside and feels much better today Objective Data Vital Signs Vital Signs: Vital Signs - 24 hr 05/23/24 12:00 05/23/24 12:03 05/23/24 13:55 Temperature 98.8 F Pulse Rate 101 H 54 L 112 H Respiratory Rate 20 18 Blood Pressure 127/92 H Pulse Oximetry 99 Oxygen Delivery 05/23/24 14:04 05/23/24 16:00 05/23/24 16:00 Temperature 98.8 F Pulse Rate 104 H 95 103 H Respiratory Rate 18 20 Blood Pressure 113/77 Pulse Oximetry 97 Oxygen Delivery 05/23/24 20:00 05/23/24 20:17 05/23/24 20:44 Temperature 98.8 F Pulse Rate 99 97 81 Respiratory Rate 22 H 18 Blood Pressure 114/82 Pulse Oximetry 98 Oxygen Delivery 05/23/24 21:01 05/23/24 22:10 05/24/24 00:00 Temperature Pulse Rate 81 97 91 Respiratory Rate 18 22 H Blood Pressure Pulse Oximetry 98 Oxygen Delivery Room Air 05/24/24 01:53 05/24/24 02:04 05/24/24 04:00 Temperature Pulse Rate 87 87 89 Respiratory Rate 18 18 Blood Pressure Pulse Oximetry Oxygen Delivery 05/24/24 04:25 05/24/24 07:51 05/24/24 08:16 Temperature 97.8 F 98.3 F Pulse Rate 90 97 85 Respiratory Rate 18 24 H 20 Blood Pressure 119/75 139/96 H Pulse Oximetry 98 99 95 Oxygen Delivery Room Air 05/24/24 08:16 05/24/24 08:27 Temperature Pulse Rate 85 108 H Respiratory Rate 20 20 Blood Pressure Pulse Oximetry Oxygen Delivery Intake/Output Intake/Output: Intake & Output 05/21/24 05/22/24 05/24/24 05/24/24 23:59 23:59 00:59 23:59 Intake Total 2270 1980 1560 640 Output Total 4450 1300 3300 950 Balance -8305 684 -0420 -310 Meds/Results Medications: Active Medications Generic Name Dose Route Start Last Admin Trade Name Freq PRN Reason Stop Dose Admin Acetaminophen 650 mg 05/19/24 12:03 Acetaminophen 325 Mg Tablet PO Q6H PRN Mild Pain (1-3) or Fever Apixaban 5 mg 05/19/24 21:00 05/24/24 08:29 Apixaban 5 Mg Tablet PO 5 mg Q12HR DAKSHA Administration Dextrose 12.5 gm 05/15/24 19:27 Dextrose 50% 25 Gm/50 Ml Syringe IV PUSH PRN PRN Hypoglycemia Protocol Digoxin 250 mcg 05/22/24 09:45 05/24/24 08:28 Digoxin 250 Mcg Tablet PO 250 mcg QAM DAKSHA Administration Empagliflozin 10 mg 05/21/24 09:00 05/24/24 08:28 Empagliflozin 10 Mg Tablet PO 10 mg DAILY DAKSHA Administration Furosemide 40 mg 05/25/24 09:00 Furosemide 40 Mg Tablet PO DAILY DAKSHA Glucagon 1 mg 05/15/24 19:27 Glucagon For Inj 1 Mg Vial IM PRN PRN Hypoglycemia Protocol Glucose 15 gm 05/15/24 19:27 Glucose Oral Gel 15 Gm Of Glucse In 37.5 Gm Tube PO PRN PRN Hypoglycemia Protocol Dextrose 1,000 mls @ 100 mls/hr 05/15/24 19:27 Dextrose 5% 1,000 Ml IVPB PRN PRN Hypoglycemia Protocol Ipratropium [place] 0.5 mg 05/15/24 14:00 05/24/24 08:14 Ipratropium Br 0.02% Inh Soln 0.5 Mg/2.5 Ml Vial INHALATION 0.5 mg Q6HRT DAKSHA Administration Levalbuterol HCl 0.63 mg 05/15/24 14:00 05/24/24 08:14 Levalbuterol Neb 1.25 Mg/3 Ml INHALATION 0.63 mg Q6HRT DAKSHA Administration Metoprolol Succinate 200 mg 05/20/24 09:00 05/24/24 08:28 Metoprolol Succinate Ext Rel 100 Mg Tabcr PO 200 mg QAM DAKSHA Administration Metoprolol Tartrate 5 mg 05/18/24 14:11 05/18/24 14:24 Metoprolol Tartrate Inj 5 Mg/5 Ml Vial IV PUSH 5 mg Q4H PRN Administration persistent tachycardia, >120 Pantoprazole Sodium 40 mg 05/20/24 09:00 05/24/24 08:29 Pantoprazole 40 Mg Tablet PO 40 mg QAM DAKSHA Administration Polyethylene Glycol 17 gm 05/18/24 08:04 Polyethylene Glycol 3350 17 Gm Powd.Pack PO QAM PRN COnstipation Sacubitril/Valsartan 1 tab 05/19/24 21:00 05/24/24 08:29 Sacubitril/Valsartan 24-26 Mg Tablet PO 1 tab Q12HR DAKSHA Administration Senna/Docusate Sodium 1 tab 05/18/24 08:04 Senna/Docusate Sodium Tablet PO DAILY PRN Constipation Spironolactone 25 mg 05/21/24 11:05 05/24/24 08:28 Spironolactone 25 Mg Tablet PO 25 mg QAM DAKSHA Administration Tamsulosin HCl 0.4 mg 05/24/24 09:00 05/24/24 08:28 Tamsulosin Hcl 0.4 Mg Capsule PO 0.4 mg QAM DAKSHA Administration Radiology Results: ITS Impressions Abdomen/Pelvis CT 05/14/24 13:28 IMPRESSION: 1. Pulmonary edema. 2. Small pleural effusions. 3. Small volume of ascites. Head CT 05/14/24 15:43 IMPRESSION: 1. 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 2. Small lateral and third ventricles, which is a change from the prior exam. Shunt catheter unchanged in position. Chest CTA 05/14/24 15:49 IMPRESSION: 1. No evident pulmonary embolism. Sensitivity decreased in the segmental pulmonary arteries and nondiagnostic in many of the smaller subsegmental pulmonary arteries particularly in the lung bases due to combination of suboptimal contrast opacification, respiratory motion and streak artifact. 2. Small to moderate-sized bilateral pleural effusions with dependent compressive atelectasis. Difficult to exclude superimposed pneumonia although suspicion is low. 3. Cardiomegaly. 4. 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 Nasogastric tube in stomach. 2. Cardiomegaly. 3. Retrocardiac opacity left lower lung zone which could represent persistent small pleural effusion, atelectasis or pneumonia. Venous Doppler Study 05/15/24 12:29 IMPRESSION: 1. No deep venous thrombosis in either lower limb. Modified Barium Swallow 05/18/24 15:18 IMPRESSION: 1. Normal modified barium swallow. 2. Please refer to the speech therapy report for recommendations. Chest X-Ray 05/20/24 06:14 Impression: Probable bibasilar mild pulmonary edema, left worse than right. Correlate clinically for pneumonia. Labs Labs: Laboratory Results - last 24 hr 05/24/24 04:12 WBC 13.3 H RBC 4.58 L Hgb 14.7 Hct 44.1 MCV 96.3 MCH 32.1 MCHC 33.3 RDW 13.2 Plt Count 262 MPV 10.6 H Immature Gran % (Auto) 0.6 H Neut % (Auto) 64.0 Lymph % (Auto) 16.2 L [place] % (Auto) 15.6 H Eos % (Auto) 2.7 Baso % (Auto) 0.9 Lymph # (Auto) 2.16 [place] # (Auto) 2.1 H Eos # (Auto) 0.4 H Baso # (Auto) 0.1 Abs Immat Gran (auto) 0.08 H Absolute Neuts (auto) 8.5 H Absolute Nucleated RBC 0.000 Nucleated RBC % 0.0 Sodium 133 L Potassium 3.7 Chloride 94 L Carbon Dioxide 31 H Anion Gap 8 BUN 33 H Creatinine 0.69 L Estim Creat Clear Calc 114 Estimated GFR > 60 Glucose 103 Calcium 9.0 Magnesium 2.1 Total Bilirubin 0.7 AST 48 ALT 103 H Alkaline Phosphatase 79 Total Protein 7.0 Albumin 3.7
--- NOTE | 2024-05-24 11:46 | WPDURCON ---
Assessment and Plan Assessment and plan (1) Acute urinary retention: Code(s): R33.8 - Other retention of urine Status: Acute Assessment and Plan: - Currently managed with indwelling Mckenzie catheter placed 05/22/24 Plan - Retention likely 2/2 acute illness, immobility - KUB ordered, r/o constipation, bowel distention prior to discharge - OK to discharge home with indwelling Mckenzie - Plan for outpatient void trial in clinic sometime next week, patient aware and agreeable - Please complete Mckenzie teaching, patient wants to be able to shower and transition to a leg bag at home - Message sent to commercial front load operator to assist with scheduling Urology Consult Note HPI Date Seen: 05/24/24 Requesting Physician: Yomaira Copeland MD Primary Care Provider: Wayne Kurtz MD Consult Narrative Reason for consult: Urinary retention Narrative: Moose Miranda is a pleasant 48 year old male admitted to the ICU 05/14/24 with severe sepsis, respiratory failure requiring intubation, PNA, cellulitis, brachiocephalic embolism. Urology was consulted for evaluation of urinary retention. Indwelling Mckenzie was placed after markedly distended bladder was identified on CT imaging. Void trial was attempted 05/22, patient felt no urge to urinate. Mckenzie was replaced with clear david output. Since being downgraded out of the ICU, he has been working with PT and is nearing discharge. Renal function stable, Cr 0.69. 05/14 UA negative for infection. Patient comfortable on exam, OOB to chair eating lunch, on room air. Denies issue with Mckenzie. Wants to learn how to transition to leg bag. Agreeable to outpatient follow-up for repeat void trial next week. 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 HTN, AFIB, hyponatremia, seizure disorder, frequent falls. Nonsmoker. Mother is primary caregiver, usually assists with appointments and transportation. Review of Systems Constitutional: Constitutional: Reports weakness Cardiovascular: Cardiovascular: Denies chest pain Respiratory: Respiratory: Denies dyspnea Gastrointestinal: Gastrointestinal: Denies abdominal pain Genitourinary: Genitourinary: Reports as per HPI, Denies hematuria and Denies flank pain PMFSH Past Medical History Medical History (Updated 05/24/24 @ 12:02 by Meg Brar APRN) Frequent falls Atrial fibrillation Hyponatremia History of seizure Hx of traumatic brain injury Heart murmur Pulmonary nodule Osteoporosis Brain aneurysm Ulcerative colitis Hypertension Surgical History Surgical History HAND CUTTER APPRENTICE (ventriculoperitoneal) shunt status H/O left knee surgery Hx of tracheostomy Hx of colonoscopy Hx of brain surgery S/P clamping of cerebral aneurysm Family History Family History Father Hypertension Family history of coronary artery disease Mother Hypertension Family history of coronary artery disease Grandparent Carcinoma of colon Diabetes mellitus Social History Social History Social History: The patient is currently living with his grandmother and helps to take care of her. The patient walks with a walker typically but has been in a wheelchair recently. Lifelong nonsmoker. He denies any alcohol marijuana or illicit drugs. The patient denies being on disability but is unemployed at this time Code status full code Smoking status: Never smoker Alcohol intake: unknown Substance use: unknown Substance use type: does not use Lack of Transportation: No Lack of Food: Never True Current Housing: I Have Housing Concerned About Future Housing: No Difficulty Paying Gas/Electric Bills: No Difficulty Paying for Meds: No Currently Unemployed: No Education: Trade/Vocational Certificate Difficulty w/ Childcare or Family Care: No Living arrangements: with family Gender identity (if verbalized by the patient): Male Spiritual care concerns: No Meds Home Medications and Allergies Home Medications ?Medication ?Instructions ?Recorded ?Confirmed ?Type adalimumab 40 mg/0.8 mL 40 mg subcut Q14D 03/19/19 05/19/24 History subcutaneous pen kit (Humira Pen) alendronate 70 mg tablet 70 mg PO WEEKLY 03/19/19 05/14/24 History folic acid 1 mg tablet 1 mg PO DAILY 03/19/19 05/14/24 History lisinopril 20 mg tablet 20 mg PO BID 03/19/19 05/14/24 History calcium carbonate (Calcium 500) 500 mg PO BID 03/25/19 05/19/24 History glucosamine-chondroitin 250 mg-200 2 tablet PO DAILY 03/25/19 05/19/24 History mg tablet (Osteo Bi-Flex) multivitamin,[id number] 1 tablet PO DAILY 03/25/19 05/19/24 History (Complete Multivitamin tablet) azathioprine 50 mg tablet (Imuran) 100 mg PO DAILY 06/06/20 05/14/24 History sulfasalazine 500 mg tablet 500 mg PO QID 11/03/22 05/14/24 History metoprolol succinate 50 mg 50 mg PO DAILY 05/14/24 05/14/24 History tablet,extended release 24 hr Allergies Allergy/AdvReac Type Severity Reaction Status Date / Time No Known Allergies Allergy Verified 05/14/24 22:41 Vital Signs Vital Signs - 24 hr 05/23/24 12:00 05/23/24 12:03 05/23/24 13:55 Temperature 98.8 F Pulse Rate 101 H 54 L 112 H Respiratory Rate 20 18 Blood Pressure 127/92 H Pulse Oximetry 99 Oxygen Delivery 05/23/24 14:04 05/23/24 16:00 05/23/24 16:00 Temperature 98.8 F Pulse Rate 104 H 95 103 H Respiratory Rate 18 20 Blood Pressure 113/77 Pulse Oximetry 97 Oxygen Delivery 05/23/24 20:00 05/23/24 20:17 05/23/24 20:44 Temperature 98.8 F Pulse Rate 99 97 81 Respiratory Rate 22 H 18 Blood Pressure 114/82 Pulse Oximetry 98 Oxygen Delivery 05/23/24 21:01 05/23/24 22:10 05/24/24 00:00 Temperature Pulse Rate 81 97 91 Respiratory Rate 18 22 H Blood Pressure Pulse Oximetry 98 Oxygen Delivery Room Air 05/24/24 01:53 05/24/24 02:04 05/24/24 04:00 Temperature Pulse Rate 87 87 89 Respiratory Rate 18 18 Blood Pressure Pulse Oximetry Oxygen Delivery 05/24/24 04:25 05/24/24 07:51 05/24/24 08:16 Temperature 97.8 F 98.3 F Pulse Rate 90 97 85 Respiratory Rate 18 24 H 20 Blood Pressure 119/75 139/96 H Pulse Oximetry 98 99 95 Oxygen Delivery Room Air 05/24/24 08:16 05/24/24 08:27 Temperature Pulse Rate 85 108 H Respiratory Rate 20 20 Blood Pressure Pulse Oximetry Oxygen Delivery Exam Narrative: Comfortable, no acute distress Indwelling Mckenzie draining clear yellow Results Labs 05/24/24 04:12 05/24/24 04:12 Labs: Short CBC 05/24/24 Range/Units 04:12 WBC 13.3 H (4.5-10.0) K/mm3 Hgb 14.7 (14.0-18.0) g/dL Hct 44.1 (42.0-52.0) % Plt Count 262 (150-375) k/mm3 BMP 05/24/24 04:12 Sodium 133 L Potassium 3.7 Chloride 94 L Carbon Dioxide 31 H BUN 33 H Creatinine 0.69 L Glucose 103 Calcium 9.0 Liver Function 05/24/24 Range/Units 04:12 Total Bilirubin 0.7 (0.2-1.3) mg/dL AST 48 (17-59) U/L ALT 103 H (6-50) U/L Alkaline Phosphatase 79 (38-126) U/L Albumin 3.7 (3.5-5.1) g/dL Imaging My impression: 05/14/24 CT AP W CON: There is cortical thinning of the kidneys. There are cysts in the kidneys measuring up to 15 mm on the left. The bladder is markedly distended. The prostate is mildly enlarged. There is a left inguinal hernia containing fat. There are no dilated loops of bowel.
--- NOTE | 2024-05-24 14:00 | P.DS_ITS ---
DS: Admitting Diagnosis Discharge Date 05/24/24 Admitting Diagnosis Shortness of Breath DS: Discharge Diagnosis Discharge Diagnosis (1) Sepsis: Qualifiers: Sepsis type: sepsis due to unspecified organism Sepsis acute organ dysfunction status: with acute organ dysfunction Severe sepsis acute organ d ysfunction type: encephalopathy Severe sepsis shock status: without septic shock Qualified Code(s): A41.9 - Sepsis, unspecified organism; R65.20 - Severe sepsis without septic shock; G93.41 - Metabolic encephalopathy Code(s): A41.9 - Sepsis, unspecified organism Status: Acute (2) Pneumonia: Qualifiers: Pneumonia type: due to unspecified organism Laterality: bilateral Lung location: lower lobe of lung Qualified Code(s): J18.9 - Pneumonia, unspecified organism Code(s): J18.9 - Pneumonia, unspecified organism Status: Acute (3) Acute respiratory failure: Code(s): J96.00 - Acute respiratory failure, unspecified whether with hypoxia or hypercapnia Status: Acute (4) Atrial fibrillation with rapid ventricular response: Code(s): I48.91 - Unspecified atrial fibrillation Status: Acute (5) Systolic heart failure: Code(s): I50.20 - Unspecified systolic (congestive) heart failure Status: Acute DS: Summary Hospital Course Hospital Course: 48 y/o M presents here with shortness of breath and generalized weakness with PMH of TBI, seizure, osteoporosis, brain aneurysm (s/p surgery), ulcerative colitis, and hypertension. The patient presents here from home via EMS for further evaluation of shortness of breath and generalized weakness. HPI obtained through chart review and ED team report. The patient is seeking care today due to shortness of breath that has been ongoing for approximately 1 week. Reported the shortness of breath worsens with exertion and is accompanied by lower extremity swelling, generalized weakness, and fatigue. He has a history of TBI, WIRE INSULATOR shunt, and brain aneurysm which was surgically clipped when he was 12 years old. Per ED provider documentation, the patient arrived A&O x4 but slow to answer questions. Workup initially significant for leukocytosis, significant tachycardia with EKG showing AFib RVR, hyponatremia (Na 120), mild hyperkalemia (5.4), and a BNP of 5130. Patient was started on diltiazem and was rate controlled. Shortly after CT the patient became agitated and increasingly short of breath. Per the bedside RN, the patient began pulling at lines and hallucinating. ER MD to the bedside and decision was made to intubate the patient. Patient had difficult airway which took 3 attempts. Patient was successfully intubated. Post intubation the patient became bradycardic in the 30s to 50s. The diltiazem gtt was stopped. HR now 90-111. Initial VS at presentation: 98.1? F, HR 126, RR 38, 153/98, and 100% on 2 L nasal cannula. ED workup showed: WBC 18.5, no anemia, sodium 120, potassium 5.4, creatinine 0.8 and GFR >60, total bilirubin 2.4, AST 220, ALT 92, BNP 5130, TSH 4.39, and viral PCR negative. CXR showed small lung volumes with airspace opacities in the by her E hilar region consistent with atelectasis versus mild pulmonary edema, small right pleural effusion, cardiomegaly. CT of the abdomen/pelvis showed pulmonary edema, small pleural effusions, small volume ascites. was manged for Pneumonia with sepsis and completed antibiotics. Also managed for left brachiocephalic thrombosis, hematology was consulted and recommended terminal gauger supervisor anticoagulation. Discharged on Eliquis. Cardiology was consulted adn managed for Afib with RVR, evealuattly better controlled was achieved with Metoprolol 200mg daily and Digoxin 250mcg daily. follow up with cardiology as instructed. Also managed for Systolic heart failure with EF fo 35-40%, cardiology started on Entresto, spironolactone, Jardiance, Lasix and Metoprolol as above Patient will continue follow up with PCP in 3-5 days F/u with cardiology and hematology as instructed Time Spent with Patient Time attestation: Total time spent providing and/or coordinating discharge services: DS: Data Data Completed and Pending Labs on day of discharge: Labs from last 24 hours 05/24/24 04:12 WBC 13.3 H RBC 4.58 L Hgb 14.7 Hct 44.1 MCV 96.3 MCH 32.1 MCHC 33.3 RDW 13.2 Plt Count 262 MPV 10.6 H Immature Gran % (Auto) 0.6 H Neut % (Auto) 64.0 Lymph % (Auto) 16.2 L Meeker % (Auto) 15.6 H Eos % (Auto) 2.7 Baso % (Auto) 0.9 Lymph # (Auto) 2.16 Meeker # (Auto) 2.1 H Eos # (Auto) 0.4 H Baso # (Auto) 0.1 Abs Immat Gran (auto) 0.08 H Absolute Neuts (auto) 8.5 H Absolute Nucleated RBC 0.000 Nucleated RBC % 0.0 Sodium 133 L Potassium 3.7 Chloride 94 L Carbon Dioxide 31 H Anion Gap 8 BUN 33 H Creatinine 0.69 L Estim Creat Clear Calc 114 Estimated GFR > 60 Glucose 103 Calcium 9.0 Magnesium 2.1 Total Bilirubin 0.7 AST 48 ALT 103 H Alkaline Phosphatase 79 Total Protein 7.0 Albumin 3.7 Discharge Plan Discharge Attending physician on discharge: Yomaira Copeland Consulting providers: Willis Yao; Clint Rice; Jason Modi; Horace Tsang; Maurice [place] Discharging Clinician: Yomaira Copeland Anticipated Discharge Date/Time: 05/24/24 13:53 Patient Disposition: Home, Self-Care Activity: as tolerated Diet: heart healthy Patient Instructions: Antibiotic Form, Heart Failure (DC) Patient Language: Romansh Stand Alone Forms: General Discharge Information Follow-up/Referrals: Horace Tsang MD [Physician] - (Follow-up with Hematology as instructed.) Maurice [place] MD [Physician] - (Follow up with Urology as instructed.) Jason Modi MD [Physician] - (Follow-up with Cardiology as instructed.) Wayne Kurtz MD [Primary Care Provider] - (Follow PCP 3-5 days.) Discharge Medications: New metoprolol succinate [Toprol XL] 100 mg Tablet Extended Release 24 Hr 200 mg PO QAM 30 Days Qty: 60 1RF sacubitril-valsartan [Entresto] 24-26 mg Tablet 1 tab PO Q12HR 30 Days Qty: 60 1RF Jardiance 10 mg Tablet 10 mg PO DAILY 30 Days Qty: 30 1RF spironolactone 25 mg Tablet 25 mg PO QAM 30 Days Qty: 30 1RF Eliquis 5 mg Tablet 5 mg PO Q12HR 30 Days Qty: 60 1RF digoxin [Digitek] 250 mcg (0.25 mg) Tablet 250 mcg PO QAM 30 Days Qty: 30 1RF tamsulosin 0.4 mg Capsule 0.4 mg PO QAM 30 Days Qty: 30 1RF furosemide 40 mg Tablet 40 mg PO DAILY 30 Days Qty: 30 1RF Continued alendronate 70 mg tablet 70 mg PO WEEKLY Rx Instructions: Takes Every Friday folic acid 1 mg tablet 1 mg PO DAILY Humira Pen 40 mg/0.8 mL pen injector kit 40 mg SUBCUT Q14D Patient Comments: Every other Friday Rx Instructions: Due to take 11/04/2022 calcium carbonate [Calcium 500] 500 mg calcium (1,250 mg) Tablet 500 mg PO BID Complete Multivitamin Tablet 1 tablet PO DAILY glucosamine-chondroitin [Osteo Bi-Flex] 250-200 mg Tablet 2 tablet PO DAILY azathioprine [Imuran] 50 mg Tablet 100 mg PO DAILY sulfasalazine 500 mg tablet 500 mg PO QID Discontinued lisinopril 20 mg tablet 20 mg PO BID metoprolol succinate 50 mg tablet extended release 24 hr 50 mg PO DAILY Date of admission: 05/14/24 15:05 Primary Care Provider: Wayne Kurtz Admitting Provider: Divina Gregorio Attending physician on admission: Yomaira Copeland Condition: Stable
== END 2024-05-24 15:11 | disposition home or self-care (01) | DRG 871 ==
LOC: ANHED 11:21 → ANHICU 16:34 → ANHIMU 05-19 03:38
PROVIDERS: Internal Medicine; Internal Medicine Nephrology; Student in an Organized Health Care Education/Training Program; Admitting Provider Family Medicine; Emergency Provider Emergency Medicine; PCP Family Medicine; Visit Provider Internal Medicine
DX: A41.9 Sepsis, unspecified organism (principal); J18.9 Pneumonia, unspecified organism; G93.41 Metabolic encephalopathy; J96.01 Acute respiratory failure with hypoxia; I50.23 Acute on chronic systolic (congestive) heart failure; I82.290 Acute embolism and thrombosis of other thoracic veins; E87.1 Hypo-osmolality and hyponatremia; I48.19 Other persistent atrial fibrillation; I42.9 Cardiomyopathy, unspecified; L03.115 Cellulitis of right lower limb; I69.354 Hemiplegia and hemiparesis following cerebral infarction affecting left non-dominant side; R65.20 Severe sepsis without septic shock; I11.0 Hypertensive heart disease with heart failure; G40.909 Epilepsy, unspecified, not intractable, without status epilepticus; E87.5 Hyperkalemia; M81.0 Age-related osteoporosis without current pathological fracture; R91.1 Solitary pulmonary nodule; R33.8 Other retention of urine; I34.0 Nonrheumatic mitral (valve) insufficiency; G93.89 Other specified disorders of brain; R29.6 Repeated falls; Z87.820 Personal history of traumatic brain injury; Z98.2 Presence of cerebrospinal fluid drainage device
CPT/HCPCS: 31500; 36415; 36556; 36600; 70450; 71045; 71275; 74018; 74177; 80048; 80053; 81001; 82140; 82375; 82533; 82805; 82948; 83050; 83605; 83735; 83880; 83883; 83930; 83935; 84100; 84133; 84145; 84155; 84165; 84295; 84300; 84443; 84478; 85018; 85025; 85027; 85730; 87040; 87070; 87186; 87205; 87637; 87641; 92610; 92611; 93005; 93306; 93970; 94002; 94003; 94640; 96365; 96366; 96372; 96375; 97110; 97116; 97161; 97166; 97530; 99291; A9270; C1751; J0171; J0692; J1100; J1160; J1644; J1650; J1940; J2060; J2250; J2470; J2704; J3370; J3475; J3480; J7030; Q9967

== ENCOUNTER 2024-08-11 09:40 | Inpatient (IN) | payer BC, SELFPAY ==
[2024-08-11] VITALS (64 sets, daily range): BP systolic 52–231; BP diastolic 41–197; PULSE 66–160; RESP 11–30; TEMP 33.8–39.9; O2SAT 93–100
--- NOTE | ~2024-08-11 | XR_ITS ---
Portable chest x-ray Comparison: 08/11/2024 Clinical History: Intubation Findings: Endotracheal tube, NG tube, and right IJ line remain in place. Suspected retrocardiac atel ectasis or possibly pneumonia. There is minimal haziness right lung base. Cardiomediastinal silhouet te is stable. Bones and soft tissues are unremarkable. Impression: Support tubes, as above. Mild haziness right lung base, nonspecific. Stable atelectasis or scarring, less likely pneumonia, at the left lung base. Reviewed, dictated and finalized at location . Impression: Support tubes, as above. Mild haziness right lung base, nonspecific. Stable atelectasis or scarring, less likely pneumonia, at the left lung base.
--- NOTE | ~2024-08-11 | XR_ITS ---
XR ankle LT min 3V Ordering provider: Willis Yao MD History: . Recent fall at home . Comparison: None. FINDINGS: BONES: Fracture of the lateral malleolus is noted. JOINT SPACES: The ankle mortise is normal. SOFT TISSUES: Minimal soft tissue swelling over the lateral malleolus. Calcaneal spur. IMPRESSION: Fracture of the lateral malleolus. Reviewed, dictated and finalized at location A.
--- NOTE | ~2024-08-11 | XR_ITS ---
Portable chest x-ray Comparison: 08/12/2024 Clinical History: Respiratory failure Findings: Endotracheal tube and right IJ line are in satisfactory positions. NG tube tip is probably at the GE junction. Small left pleural effusion present with hazy left basilar airspace disease. The re is minimal haziness medial right lung base. Cardiomediastinal silhouette is stable. Bones and sof t tissues are unremarkable. Impression: Small left pleural effusion with probable mild bibasilar pulmonary edema. NG tube tip is at the GE junction. Further advancement into the stomach recommended. Additional support tubes in place, as above. Reviewed, dictated and finalized at location M. Impression: Small left pleural effusion with probable mild bibasilar pulmonary edema. NG tube tip is at the GE junction. Further advancement into the stomach recomme nded. Additional support tubes in place, as above.
--- NOTE | ~2024-08-11 | XR_ITS ---
CHEST RADIOGRAPH CLINICAL HISTORY: Found unresponsive, ETT PLACEMENT . COMPARISON: 05/20/2024 TECHNIQUE: Single portable view of the chest. FINDINGS Endotracheal tube is identified with its tip projecting approximately 6.2 cm above the base of the ca tyler. Advancement of approximately 2.5 cm for optimal radiographic placement. Orogastric tube identified with its tip extending below the left hemidiaphragm, presumably within the stomach. Ventriculoperitoneal shunt catheter projects over the right neck, right chest, and right upper abdome n. The remainder of the cardiomediastinal silhouette is otherwise unremarkable. Increased interstitial markings are identified bilaterally, findings suggesting mild pulmonary vascul ar congestion. The remainder of the lungs are clear. IMPRESSION: Mild pulmonary vascular congestion. Endotracheal tube advancement of approximately 2.5 cm for optimal radiographic placement. Orogastric tube in good position and ready for immediate use. Reviewed, dictated and finalized at location A.
--- NOTE | ~2024-08-11 | CT_ITS ---
Non-contrast Head CT History: Altered mental status COMPARISON: 05/06/2024 Technique: Axial non-contrast imaging of the brain was performed. Dose reduction technique was used on this scan by utilizing automated exposure control and iterative reconstruction technique. The dose -length product (DLP) was 605.33 mGy-cm. Findings: Stable extensive left cerebellar encephalomalacia and focal right cerebellar evidence of in flammation. Stable dilatation of the fourth ventricle. Stable right ventriculostomy shunt catheter en tering via the posterior right parietal bone. Stable additional focal chronic insufflation the right parietal lobe laterally. Probable postoperative change of the right calvarium, unchanged. The ventric les and subarachnoid spaces are normal in size. The calvarium appears normal. The visualized parana sourav sinuses and mastoid air cells are clear. Impression: No acute abnormality. Chronic findings, as detailed above. Reviewed, dictated and finalized at [facility]. Impression: No acute abnormality. Chronic findings, as detailed above.
--- NOTE | ~2024-08-11 | XR_ITS ---
CHEST RADIOGRAPH CLINICAL HISTORY: line placement . COMPARISON: 08/11/2024 TECHNIQUE: Single portable view of the chest. FINDINGS Interval placement of a right internal jugular central venous catheter tip projecting over the proxim al right atrium. Endotracheal tube is identified with its tip projecting approximately 4 cm above the base of the ish na. Nasogastric tube identified with its tip extending below the left hemidiaphragm, presumably within th e stomach. The remainder of the cardiomediastinal silhouette is otherwise unremarkable. The visualized portions of the lungs are primarily clear. IMPRESSION: Interval placement of a right internal jugular central venous catheter in good position and ready for immediate use. Remaining lines and tubes are in good position. Visualized portions of the lungs are clear. Reviewed, dictated and finalized at location A.
--- NOTE | ~2024-08-11 | CT_ITS ---
CLINICAL INDICATION: Altered mental status and sepsis COMPARISON: 05/14/2024 TECHNIQUE: An enhanced CT of the abdomen and pelvis was performed utilizing multislice spiral SkuRun ue reconstructed at 5 mm slice thickness. Coronal and sagittal reconstructions were performed. This CT examination was performed utilizing dose reduction techniques. DLP: 1129.06 mGy-cm FINDINGS/OBSERVATIONS: Lung: Left lower lobe consolidation, possibly aspiration. Right basilar atelectasis. The remainder of the lungs are otherwise clear. Endotracheal tube in position. The heart is enlarged, without pericardial effusion. Mediastinum: No pathologically enlarged or morphologically suspicious lymph nodes are identified within the medias tinum, bilateral axilla, within the soft tissues of the anterior chest wall. Soft tissues of the chest: Unremarkable. Bones of the chest: No acute fracture. No lytic or blastic lesions are identified. Liver: The liver enhances homogeneously and is not enlarged. Gallbladder and biliary system: The gallbladder is only minimally distended, but otherwise unremarkable. Pancreas: The pancreas enhances homogeneously, without ductal dilatation. Spleen: The spleen enhances homogeneously and is not enlarged. Kidneys: The bilateral kidneys enhance symmetrically without hydronephrosis or renal calculi. Adrenal glands: Unremarkable. Gastrointestinal tract: Small hiatal hernia is present. Orogastric tube within the stomach. Appendix: The air-filled appendix is of normal caliber (axial series, images 166 - 173). Vasculature: Calcified atherosclerotic disease is present. No aneurysmal dilatation. Lymph nodes: Scattered nonpathologically enlarged lymph nodes within the root of the mesentery and deep in the pel vis. Pelvic structures: The bladder is decompressed with a herrera catheter, limiting its evaluation. The prostate gland is not enlarged and contains multiple calcifications. Ventriculoperitoneal shunt in place. Body wall and musculoskeletal: Age advanced degenerative disease within the thoracic and lumbar spines. No acute compression fractures. IMPRESSION: Left lower lobe consolidation and right basilar atelectasis. No hollow or solid organ injury. No acute fractures. Reviewed, dictated and finalized at location A.
--- NOTE | ~2024-08-11 | US_ITS ---
EXAMINATION:US venous doppler LE BI INDICATION:Evaluate for DVT TECHNIQUE: Multiple grayscale, color flow and Doppler images of the right and left lower extremity de ep venous systems were obtained and reviewed. COMPARISON:No prior studies for comparison. FINDINGS: The common femoral, superficial femoral and popliteal veins demonstrate normal respiratory variation, augmentation and compressibility. Color flow is also seen within the posterior tibial, pe roneal, greater saphenous and profunda veins. IMPRESSION: 1: No lower extremity deep venous thrombosis. Reviewed, dictated and finalized at location A.
--- NOTE | ~2024-08-11 | US_ITS ---
EXAM: RENAL ULTRASOUND HISTORY: Acute kidney injury rule out hydronephrosis COMPARISON: Reference is made to a CT examination of the chest abdomen and pelvis performed 3 hours e prateek FINDINGS: RIGHT KIDNEY: 10.9 x 5.2 x 5.1 cm. The parenchyma of the right kidney is unremarkable in echogenicity. No hydronephrosis or renal calculi. LEFT KIDNEY: 11.2 x 5.9 x 7.4 cm No hydronephrosis or renal calculi. The parenchyma of the left kidney is unremarkable in echogenicity. BLADDER: Decompressed with a Mckenzie catheter, limiting its evaluation. IMPRESSION: No hydronephrosis or renal calculi. Examination is unchanged from CT study performed 3 hours earlier Reviewed, dictated and finalized at location A.
--- NOTE | ~2024-08-11 | CT_ITS ---
Procedure: CT knee LT wo con Ordering provider: Willis Yao MD History: . swollen, rule out infection , gas . Comparison: None. Technique: Thin slice axial CT of the No IV contrast was given. Sagittal and coronal reformatted imag es were also obtained and reviewed. Radiation reduction technique utilized.The dose-length product wa s 641.2 mGy-cm. Findings: BONES: Bony fragments are seen in the area of the patella suggestive of destructive changes due to in fection. Possibility of fracture of the patellar tendon is not excluded.. No infection seen in the distal femur and tibia JOINT SPACES: Moderate osteoarthritic changes with osteophyte formation SOFT TISSUES: Soft tissue swelling is seen in the area of the patella suggestive of multilocular absc ess. Thickening of the synovial covering of the suprapatellar bursa. Thickening of the knee covering is al so noted suggestive of synovitis. Correlation seen in the left side of the distal femur measuring 1 x 1.2 cm. IMPRESSION: Postoperative changes in the patella with destructive changes and fragmentation. multilocular abscess seen in the suprapatellar bursa. Synovitis seen in the left knee joint. was notified with the result of the patient at 7:35 PM on August 11, 2024. Reviewed, dictated and finalized at location A. IMPRESSION: Postoperative changes in the patella with destructive changes and fragmentation . multilocular abscess seen in the suprapatellar bursa. Synovitis seen in the left knee joint. was notified with the result of the patient at 7:35 PM on August 11.
--- NOTE | ~2024-08-11 | CT_ITS ---
CT brain wo con Ordering provider: Willis Yao MD History: 48 years Male with . unequal pupils . Comparison: August 11, 2024 Technique: CT of the head without contrast. Radiation reduction technique utilized.The dose-length pr oduct was 681 mGy-cm. FINDINGS: BRAIN PARENCHYMA AND CSF SPACES: Shunt tube is seen in the right occipital area with the tip in the a nterior horn of the right lateral ventricle. Encephalomalacia in the right parietal area. Encephaloma lacia seen in the left cerebellar hemisphere with postoperative changes. No midline shift, mass effec t or hemorrhage. The brain parenchyma and CSF spaces are otherwise normal. VISUALIZED PARANASAL SINUSES: Well aerated. MASTOIDS: Well aerated. BONES: Deformity in the right skull bones is noted. Otherwise, The bones appear intact. SOFT TISSUES: Visualized nasopharynx is normal. Superficial soft tissues are normal. IMPRESSION: No acute intracranial findings. 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 Right occipital shunt tube with the tip in the right lateral ventricle. Reviewed, dictated and finalized at location A.
--- NOTE | ~2024-08-11 | XR_ITS ---
XR chest 1V portable 08/14/2024 05:30 Indication: Acute respiratory failure Procedure: AP portable chest Comparison: Comparison to multiple prior studies sequentially, with oldest reviewed study dated 08/11. Findings: Endotracheal tube tip 3.9 cm above the ping. NG tube in the stomach. Right IJ central jack e tip in the right atrium. There is a catheter overlying the right chest vertically oriented, possibl y ventriculoperitoneal shunt. Cardiomegaly. There is bibasilar airspace disease, left greater than ri ght. Possible small left effusion. No pneumothorax. Impression: 1: Persistent bibasilar airspace disease which may represent pneumonia and/or atelectasis. Reviewed, dictated and finalized at location A. Impression: 1: Persistent bibasilar airspace disease which may represent pneumonia and/or a telectasis.
[2024-08-11] MEDS: SODIUM CHLORIDE 0.9% IV 1,000 ML 999 ML IV CONT ×3 (09:50→14:29)
--- OUTSIDE RECORDS SUMMARY | 2024-08-11 09:55 | XMS_ITS | Encounter Summary ---
Author Organization [facility] Address [address] [place] [address] Phone Care Team Providers Care Rod Straightener Name Role Phone Wayne Kurtz MD Primary Care Provider Dayami Gill APRN, PET HOUSE SITTER Unavailable [phone] Suman Becerra MD Unavailable [phone] Ngozi De Luna APRN, PET HOUSE SITTER Unavailable Reason for Visit * Reason Comments Medication Refill Encounter Details Date Type Department Care Team (Late st Contact Info) Description 12/16/2022 Refill [facility] - [facility] [address] [place] [address] Suman Becerra MD [address] [place] [address] Medication Refill Social History Tobacco Use Types [...] Office Visit Ngozi De Luna APRN, MAMIE [facility] [place] Showing recent visits within past 365 days and meeting all other requirements Future Appointments No visits were found meeting these conditions. Showing future appointments within next 90 days and meeting all other requirements documented in this encounter Plan of Treatment Not on file documented as of this encounter Visit Diagnoses Diagnosis Ulcerative pancolitis without complication (HCC) documented in this encounter Care Teams Rod Straightener Relationship Specialty Start Date End Date Wayne Kurtz MD [address] [place] [address] PCP - General Family Medicine 04/09/16 Dayami Gill APRN, PET HOUSE SITTER [address] [place] [address] Nurse Practitioner Advanced Practice Nurse 04/26/16 Suman Becerra MD [address] [place] [address] Consulting Physician Gastroenterology 05/24/21 Ngozi De Luna APRN, PET HOUSE SITTER [address] [place] [address] Nurse Practitioner Advanced Practice Nurse 09/02/22 documented as of this encounter
--- OUTSIDE RECORDS SUMMARY | 2024-08-11 09:55 | XMS_ITS | Encounter Summary ---
Author Organization [facility] Address [address] [place] [address] Phone Care Team Providers Care Senior Support Analyst Name Role Phone Wayne Kurtz MD Primary Care Provider Dayami Gill APRN, ACCESS CLINICIAN Unavailable [phone] Suman Becerra MD Unavailable [phone] Ngozi De Luna APRN, ACCESS CLINICIAN Unavailable Reason for Visit * Reason Comments Medication Refill Encounter Details Date Type Department Care Team (Late st Contact Info) Description 06/30/2021 Refill [facility] - Gastroenterology - [place] [address] [place] [address] Komal Johnson Maryellen, PAC [address] [place] [address] Medication Refill Social History Tobacco Use Types [...] (HCC) documented in this encounter Care Teams Senior Support Analyst Relationship Specialty Start Date End Date Wayne Kurtz MD [address] [place] [address] PCP - General Family Medicine 04/09/16 Dayami Gill APRN, ACCESS CLINICIAN [address] [place] [address] Nurse Practitioner Advanced Practice Nurse 04/26/16 Suman Becerra MD [address] [place] [address] Consulting Physician Gastroenterology 05/24/21 Ngozi De Luna APRN, ACCESS CLINICIAN [address] [place] [address] Nurse Practitioner Advanced Practice Nurse 09/02/22 documented as of this encounter
--- OUTSIDE RECORDS SUMMARY | 2024-08-11 09:55 | XMS_ITS | Encounter Summary ---
Author Organization [facility] Address [address] [place] [address] Phone Care Team Providers Care Passenger Barge Master Name Role Phone Wayne Kurtz MD Primary Care Provider Dayami Gill APRN, RUG HOOKER HAND Unavailable [phone] Suman Becerra MD Unavailable [phone] Ngozi De Luna APRN, RUG HOOKER HAND Unavailable Reason for Visit * Reason Comments Medication Refill Encounter Details Date Type Department Care Team (Late st Contact Info) Description 04/01/2021 Refill [facility] - [facility] - [place] [address] [place] [address] Komal Johnson Maryellen, PAC [address] [place] [address] Medication Refill Social History Tobacco Use Types [...] Luiza Marcos RN - 04/02/2021 11:09 AM [facility] requesting refill of: Requested Prescriptions Pending Prescriptions Disp Refills ??? sulfaSALAzine (AZULFIDINE) 500 MG Tablet [Pharmacy Med Name: SULFASALAZINE 500MG TABLETS] 120 Tablet 0 Sig: TAKE 1 TABLET BY MOUTH FOUR TIMES DAILY Last fill: 03/02/2021 Patients last OV with GI: 10/02/2020 Next Office Visit with GI: None scheduled. CBC, CMP and UA labs printed from [facility] portal. Labs drawn on 02/13/[address]. Will [address] on providers desk for review. Sulfasalazine order pended, please review. FED PRINTER FED PRINTER FED PRINTER documented in this encounter Plan of Treatment Not on file documented as of this encounter Visit Diagnoses Diagnosis Ulcerative pancolitis without complication (HCC) documented in this encounter Care Teams Passenger Barge Master Relationship Specialty Start Date End Date Wayne Kurtz MD [address] [place] [address] PCP - General Family Medicine 04/09/16 Dayami Gill APRN, RUG HOOKER HAND [address] [place] [address] Nurse Practitioner Advanced Practice Nurse 04/26/16 Suman Becerra MD [address] [place] [address] Consulting Physician Gastroenterology 05/24/21 Ngozi De Luna APRN, RUG HOOKER HAND [address] [place] [address] Nurse Practitioner Advanced Practice Nurse 09/02/22 documented as of this encounter
--- OUTSIDE RECORDS SUMMARY | 2024-08-11 09:55 | XMS_ITS | Clinical Summary ---
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) use of immunosuppressive biologic TAKE 1 TABLET FOUR TIMES DAILY 360 Tablet 3 12/15/19 24 Active azaTHIOprine (IMURAN) 50 MG TabletIndications:Ul cerative pancolitis without complication (HCC) TAKE 2 TABLETS DAILY 60 Tablet 11 04/08/19 25 Active Active Problems Problem Noted Date Diagnosed Date Ulcerative colitis Cystic acne Hypertension Pulmonary stenosis Murmur Encounters Date Type Department Care Team Description 05/24/2024 Telephone [facility] - Gastroenterology [facility] [address] [place] [address] Ngozi De Luna APRN, FRUIT CULLER from Last 3 Months Immunizations Immunization Administration [...] P M CDT Height 175.3 cm (5' 9) 11/11/2023 1:53 PM CDT Body Mass Index 28.44 11/11/2023 1:53 PM CDT Plan of Treatment Health Maintenance Due [...] to Health Maintenance Results * COLONOSCOPY (06/15/2020) us Aquilino Rahman DO PROCEDURE/MINOR SURGICAL ORDERA BLES Final Result * HEPATITIS PANEL ACUTE (AHP) (04/27/2018) Blood specimen (specimen) Gaby Marcano SWEEP MOLDER, FRUIT CULLER HEMATOLOGY ORDERA BLES Final Result from Last 3 Months or Most Recently Relevant to Health Maintenance Insurance [facility] Care Teams Office Associate Relationship Specialty Start Date End Date Wayne Kurtz MD [address] [place] [address] PCP - General Family Medicine 04/09/16 aDyami Gill APRN, FRUIT CULLER [address] [place] [address] Nurse Practitioner Advanced Practice Nurse 04/26/16 Suman Becerra MD [address] [place] [address] Consulting Physician Gastroenterology 05/24/21 Ngozi De Luna APRN, FRUIT CULLER [address] [place] [address] Nurse Practitioner Advanced Practice Nurse 09/02/22
--- OUTSIDE RECORDS SUMMARY | 2024-08-11 09:55 | XMS_ITS | Encounter Summary ---
Author Organization [facility] Address [address] [place] [address] Care Team Providers Care Dining Room Server Name Role Phone Wayne Kurtz MD Primary Care Provider [phone] Encounter Details Date Type Department Care Team (Late st Contact Info) Description 06/11/2024 Results Follow-Up [facility] Cardiology [address] [place] [address] Mitzy Rowley RN Basic metabolic panel, Digoxin level Social History Tobacco Use Types Packs/Day Years Used Date Smoking Tobacco: Never Smokeless Tobacco: Never Alcohol Use Standard Drinks/Week Comments No 0 (1 standard drink = 0.6 oz pur e alcohol) Sex and Gender Information Value Date Recorded Sex Assigned at Not on file Legal Sex Male 3:13 AM PROJECT ARCHITECT Gender Identity Male 05/15/2020 1:43 PM PROJECT ARCHITECT Sexual Orientation Straight 03/15/2021 6: 46 PM PROJECT ARCHITECT documented as of this encounter Plan of Treatment Not on file documented as of this encounter Visit Diagnoses Not on filedocumented in this encounter Care Teams Dining Room Server Relationship Specialty Start Date End Date Wayne Kurtz MD PCP - General 05/26/15 documented as of this encounter
--- OUTSIDE RECORDS SUMMARY | 2024-08-11 09:56 | XMS_ITS | Encounter Summary ---
Author Organization [facility] Address [address] [place] [address] Phone Care Team Providers Care Per Diem Nurse Name Role Phone Wayne Kurtz MD Primary Care Provider Dayami Gill APRN, EVENT SALES MANAGER Unavailable Suman Becerra MD Unavailable [phone] Ngozi De Luna APRN, EVENT SALES MANAGER Unavailable Reason for Visit * Reason Comments Medication Refill Encounter Details Date Type Department Care Team (Late st Contact Info) Description 05/17/2023 Refill [facility] - Gastroenterology - [place] [address] [place] [address] Ngozi De Luna APRN, EVENT SALES MANAGER [address] [place] [address] Medication Refill Social History Tobacco Use Types [...] Luiza Marcos RN - 05/21/2023 9:23 AM DIRECTIONAL SURVEY DRAFTER Refill received from [facility] pharmacy for azathioprine, refill request asking for additional information for weight. Please see pended order. CTIONAL SURVEY DRAFTER documented in this encounter Plan of Treatment Not on file documented as of this encounter Visit Diagnoses Diagnosis Ulcerative pancolitis without complication (HCC) documented in this encounter Care Teams Per Diem Nurse Relationship Specialty Start Date End Date Wayne Kurtz MD [address] [place] [address] PCP - General Family Medicine 04/09/16 Dayami Gill APRN, EVENT SALES MANAGER [address] [place] [address] Nurse Practitioner Advanced Practice Nurse 04/26/16 Suman Becerra MD [address] [place] [address] Consulting Physician Gastroenterology 05/24/21 Ngozi De Luna APRN, EVENT SALES MANAGER [address] [place] [address] Nurse Practitioner Advanced Practice Nurse 09/02/22 documented as of this encounter
--- OUTSIDE RECORDS SUMMARY | 2024-08-11 09:56 | XMS_ITS | Clinical Summary ---
Author Organization [facility] Address [address] [place] [address] Care Team Providers Care Improvement Auditor Name Role Phone Wayne Kurtz MD Primary Care Provider [phone] Allergies No known active allergies Medications alendronate [...] differently:0.4 mgoral Daily (early AM), Reported on 07/06/2024 adalimumab (HUMIRA PEN) 40 mg/0.8 mL pen injector kitIndications: Ulcerative Colitis Inject 0.8 mL (40 mg total) under the skin every 2 (two) weeks 06/24/19 19 Active azaTHIOprine (IMURAN) 50 mg tablet Take 2 tablets (100 mg total) by mouth bookkeeping service sales agent before breakfast 04/21/19 19 Active sulfaSALAzine (AZULFIDINE) 500 mg tablet TAKE 1 TABLET BY MOUTH FOUR TIMES DAILY 06/13/19 19 Active ondansetron (ZOFRAN) 4 mg tabletIndicatio ns:Prevention of Post-Operative Nausea and Vomiting Take 1 tablet (4 mg total) by mouth every 8 (eight) hours as needed for nausea or vomiting 12 tablet 02/09/20 20 Active Additional Information Patient not taking.Reported on 07/06/2024 HYDROcodone-anson taminophen (NORCO) 10-325 mg per tabletIndicatio ns:Pain Take 1 tablet by mouth every 4 (four) hours as needed (postop) 30 tablet 02/22/20 Active Additional Information Patient not taking.Reported on 07/06/2024 leg brace misc 1 Units daily 1 each 04/10/19 Active rifAMPin (RIFADIN) 300 mg capsule daily Active senna-docusate (PERICOLACE) 8.6-50 mg 2 tab, Tab, Oral, BID, 120 tab, 0 Refill(s), Route to Pharmacy Electronically , [id number], 178, 02/28/20 12:28:00 GREASE BUFFER, Height/Length Dosing, cm, 84.4, 02/28/20 12:28:00 GREASE BUFFER, Weight Dosing, kg 03/02/20 Active sacubitriL-vals liliana (ENTRESTO) 24-26 mg tabletIndicatio ns:chronic heart failure Take 1 tablet by mouth 2 (two) times a day 180 tablet 3 07/07/19 25 2025 Active metoprolol XL (TOPROL-XL) 100 mg 24 hr tablet Take 1 tablet (100 mg total) by mouth daily 90 tablet 07/07/19 Active empagliflozin (JARDIANCE) 10 mg tabletIndicatio ns:Heart Failure Take 1 tablet (10 mg total) by mouth daily 90 tablet 07/07/19 25 2025 Active apixaban (ELIQUIS) 5 mg tabletIndicatio ns:atrial fibrillation Take 1 tablet (5 mg total) by mouth 2 (two) times a day 180 tablet 07/07/19 25 2025 Active digoxin (LANOXIN) 50 mcg/mL solution Take 5 mL (0.25 mg total) by mouth daily 150 mL 07/30/19 25 2024 Active spironolactone (ALDACTONE) 25 mg tablet Take 1 tablet (25 mg total) by mouth daily 30 tablet 07/30/19 Active furosemide (LASIX) 40 mg tablet Take 1 tablet (40 mg total) by mouth daily 30 tablet 08/05/19 25 2025 Active furosemide (LASIX) solution 40 mg/4 mL Take 4 mL (40 mg total) by mouth daily 2024 Discontinued(R eorder) digoxin (LANOXIN) 50 mcg/mL solution 5 mL (0.25 mg total) daily 2024 Discontinued(R eorder) spironolactone (ALDACTONE) 25 mg tablet Take 1 tablet (25 mg total) by mouth daily 2024 Discontinued(R eorder) furosemide (LASIX) solution 40 mg/4 mL Take 4 mL (40 mg total) by mouth daily 120 mL 5 07/30/19 25 2024 Discontinued Active Problems Problem Noted Date Diagnosed Date Wound dehiscence 03/02/2020 At risk for venous thromboembolism (VTE) 020 Overview (08/24/2020): Problem added by Discern Expert Rule: [id number]_VTERISKPROB_3 Patellar dislocation, left, subsequent encounter 01/18/2020 Overview (01/18/2020): Added automatically from request for surgery [id number] Charcot's joint of knee, left 01/18/2020 Overview (01/18/2020): Added automatically from request for surgery [id number] Cystic acne 12/02/2019 Hypertension 12/02/2019 Murmur 12/02/2019 Pulmonary stenosis 12/02/2019 Ulcerative colitis 12/02/2019 Mitral valve disease 04/26/2014 Overview (06/21/2016): Mitral valve disorder Encounters Date Type Department Care Team Description 08/04/2024 Telephone [facility] Cardiology [address] [place] [address] [place] [phone] Jason Modi MD 07/29/2024 Telephone [facility] Cardiology [address] [place] [address] [address] [place] [phone] Jason Modi MD 07/06/2024 10:00 AM CDT Office Visit [facility] Cardiology [address] [place] [address] [place] [phone] Jason Modi MD Chronic systolic heart failure (HCC) (Primary Dx); Lipid screening 07/06/2024 Orders Only [facility] Cardiology [address] [place] [address] [place] [phone] Willis Yao MD 06/11/2024 Results Follow-Up [facility] Medical [facility] Cardiology [address] [place] [phone] Mitzy Rowley RN Basic metabolic panel, Digoxin level 05/26/2024 Orders Only [facility] Cardiology [address] [place] [phone] Linda Hubbard MD 05/24/2024 Telephone [facility] Cardiology [address] [place] [address] [address] [place] [phone] Jason Modi MD 05/20/2024 Telephone [facility] Cardiology [address] [place] [address] [address] [place] [phone] Jason Modi MD from Last 3 Months Surgical History Surgery Date Site/Laterality Comments OTHER [...] on file Legal Sex Male 3:13 AM GREASE BUFFER Gender Identity Male 05/15/2020 1:43 PM GREASE BUFFER Sexual Orientation Straight 03/15/2021 6: 46 PM GREASE BUFFER Obstetrics History Last Filed Vital Signs Vital Sign Reading Time Taken Comments Blood Pressure 108/62 07/06/2024 9:50 AM CDT Pulse 62 07/06/2024 9:50 AM CDT Temperature 37.1 C (98.8 F) 02/22/2020 8:00 AM GREASE BUFFER Respiratory Rate 16 02/22/2020 8:00 AM GREASE BUFFER Oxygen Saturation 96% 07/06/2024 9:50 AM CDT Inhaled Oxygen Concentration - - Weight 81.2 kg (179 lb) 07/06/2024 9:50 AM CDT Height 175.3 cm (5' 9) 07/06/2024 9:50 AM CDT Body Mass Index 26.43 07/06/2024 9:50 AM CDT Plan of Treatment Health Maintenance [...] risk series) 02/09/2021 01/12/2021, 12/14/2020 Influenza Vaccine (Season Ended) 2024 Procedures Procedure Name Priority Date/Time Associated Diagnosis Comments XR CHEST PA LATERAL 2 VIEWS Schedule Routine, Read Routine (OP Routine) 07/06/2024 1:36 PM CDT POCT LIPID PANEL Routine 07/06/2024 9:43 AM CDT Lipid screening DIGOXIN LEVEL Routine 06/10/2024 9:24 AM CDT Atrial fibrillation, unspecified type (HCC) BASIC METABOLIC PANEL Routine 06/10/2024 9:24 AM CDT Atrial fibrillation, unspecified type (HCC) CARDIOLOGY DOCUMENT SCAN Routine 05/24/2024 1:51 PM CDT CARDIOLOGY DOCUMENT SCAN Routine 05/21/2024 1:17 PM GREASE BUFFER CARDIOLOGY DOCUMENT SCAN Routine 05/20/2024 1:14 PM GREASE BUFFER CARDIOLOGY DOCUMENT SCAN Routine 05/19/2024 1:12 PM GREASE BUFFER from Last 3 Months Results * XR Chest Pa Lateral 2 Views (07/06/2024 1:36 PM CDT) Anatomical Region Laterality Modality Body, Chest N/A Radiographic Ting ging Willis Yao MD IMG XR PROCEDURES Final Result * POCT lipid panel (07/06/2024 9:43 AM CDT) Cholesterol, POC 134 mg/dL HDL, POC n/a mg/dL Triglycerides, POC 106 mg/dL LDL Cholesterol POC n/a mg/dL Chol/HDL Ratio, POC n/a Non-HDL Cholesterol, POC n/a mg/dL Cholesterol Total, POC 134 mg/dL Capillary blood 07/06/2024 9 :43 AM CDT Jason Modi MD POINT OF CARE TEST ORDERABLES Fi nal Result * Digoxin level (06/10/2024 9:24 AM CDT) Digoxin 0.9 0.8 - 2.0 mcg/L [facility] Comment: DIETER Anti-Digoxin (Digibind(R)) in serum/plasma of patients under toxicity therapy may interfere with the digoxin immunoassay. Note: Patients with levels as low as 0.5 ng/mL may experience similar benefits regarding symptoms of heart failure, improvement in LVEFs, and increased treadmill time compared with patients with moderate (1.0 to 1.2 ng/mL) to high (more than 1.2 ng/mL) serum digoxin concentrations. (Nely Cohen, Abhijeet Lopez, Suzie Jang. et al. 2021 AHA/ACC/HFSA Guideline for the Management of Heart Failure: A Report of the [place] College of Cardiology/[place] Heart Association Joint Committee on Clinical Practice Guidelines. J Am Lilly Cardiol. 2021, 79 (52) [id number]; Camilo SA, Taryn HF, Jose Miguel DK. Digoxin therapy for heart failure: an update. Am Fam Physician. 2005Oct 29;74(4):613-8) Blood 06/10/2024 9:24 AM CDT 06/10/2024 9:25 AM CDT us Jason Modi MD LAB BLOOD ORDERABLES Final Resul t [facility] [address] [place] [address] * (ABNORMAL) Basic metabolic panel (06/10/2024 9:24 AM CDT) Glucose 92 65 - 99 mg/dL [facility] Comment: Fasting reference interval BUN 6(L) 7 - 25 mg/dL [facility] Creatinine 0.75 0.60 - 1.29 mg/dL [facility] eGFR 112 > OR = 60 mL/min/1.7 3m2 [facility] BUN/creat ratio 8 6 - 22 (calc) [facility] Sodium 135 135 - 146 mmol/L [facility] Potassium, pl 4.1 3.5 - 5.3 mmol/L [facility] Chloride 96(L) 98 - 110 mmol/L [facility] CO2 30 20 - 32 mmol/L [facility] Calcium 9.6 8.6 - 10.3 mg/dL [facility] Blood 06/10/2024 9:24 AM CDT 06/10/2024 9:25 AM CDT us Jason Modi MD LAB BLOOD ORDERABLES Final Resul t [facility] [address] [place] [address] * Cardiology Document Scan (05/24/2024 1:51 PM CDT) Anatomical Region Laterality Modality Other us Jason Modi MD CV CARDIAC SERVICES PROCEDURES F inal Result * Cardiology Document Scan (05/21/2024 1:17 PM GREASE BUFFER) Anatomical Region Laterality Modality Other Linda Hubbard MD CV CARDIAC SERVICES PRO CEDURES Final Result * Cardiology Document Scan (05/20/2024 1:14 PM GREASE BUFFER) Anatomical Region Laterality Modality Other us Jason Modi MD CV CARDIAC SERVICES PROCEDURES F inal Result * Cardiology Document Scan (05/19/2024 1:12 PM GREASE BUFFER) Anatomical Region Laterality Modality Other [facility] Sydnie Hubbard MD CV CARDIAC SERVICES PRO CEDURES Final Result from Last 3 Months Insurance Advance Directives For more information, please contact: [phone] * Full Code (Latest Code Status on File) Date Activated Date Inactivated Comments 02/18/2020 7:34 PM 02/22/2020 8:32 PM Care Teams Improvement Auditor Relationship Specialty Start Date End Date Wayne Kurtz MD PCP - General 05/26/15
--- OUTSIDE RECORDS SUMMARY | 2024-08-11 09:56 | XMS_ITS | Referral Summary ---
Author Organization [facility] Address [address] [place] [address] Care Team Providers Care Button Decorating Machine Operator Name Role Phone Wayne Kurtz MD Primary Care Provider [phone] Encounters Date Type Department Care Team Description 08/04/2024 Telephone [facility] Medical [facility] Cardiology [address] [place] [address] [address] [place] [phone] Jason Modi MD 07/29/2024 Telephone [facility] Cardiology [address] [place] [address] [place] [phone] Jason Modi MD 07/06/2024 Orders Only [facility] Cardiology [address] [place] [address] [place] [phone] Willis Yao MD 07/06/2024 10:00 AM CDT Office Visit [facility] Cardiology [address] [place] [address] [address] [place] [phone] Jason Modi MD Chronic systolic heart failure (HCC) (Primary Dx); Lipid screening 06/11/2024 Results Follow-Up [facility] Cardiology [address] [place] [address] [address] [place] [phone] Mitzy Rowley RN Basic metabolic panel, Digoxin level 05/26/2024 Orders Only [facility] Cardiology [address] [place] [address] [address] [place] [phone] Linda Hubbard MD 05/24/2024 Telephone [facility] Cardiology [address] [facility] [address] [place] [phone] Jason Modi MD 05/20/2024 Telephone [facility] Cardiology [address] [place] [address] Jason Modi MD from Last 3 Months Allergies No known active allergies Medications alendronate [...] 2 tablets (100 mg total) by mouth missile technician before breakfast 04/21/19 19 Active sulfaSALAzine (AZULFIDINE) [...] needed (postop) 30 tablet 02/22/20 20 Active Additional Information Patient not taking.Reported on 07/06/2024 leg brace misc 1 Units daily 1 each 04/10/19 21 Active rifAMPin (RIFADIN) 300 mg capsule daily Active senna-docusate (PERICOLACE) 8.6-50 mg 2 tab, Tab, Oral, BID, 120 tab, 0 Refill(s), Route to Pharmacy Electronically , [facility] #[id number], 862, 02/28/20 12:28:00 SATURATOR OPERATOR, Height/Length Dosing, cm, 84.4, 02/28/20 12:28:00 SATURATOR OPERATOR, Weight Dosing, kg 03/02/20 Active sacubitriL-vals liliana (ENTRESTO) 24-26 mg tabletIndicatio ns:chronic heart failure Take 1 tablet by mouth 2 (two) times a day 180 tablet 3 07/07/19 25 2025 Active metoprolol XL (TOPROL-XL) 100 mg 24 hr tablet Take 1 tablet (100 mg total) by mouth daily 90 tablet 3 07/07/19 Active empagliflozin (JARDIANCE) 10 mg tabletIndicatio ns:Heart Failure Take 1 tablet (10 mg total) by mouth daily 90 tablet 3 07/07/19 25 2025 Active apixaban (ELIQUIS) 5 mg tabletIndicatio ns:atrial fibrillation Take 1 tablet (5 mg total) by mouth 2 (two) times a day 180 tablet 3 07/07/19 25 2025 Active digoxin (LANOXIN) 50 mcg/mL solution Take 5 mL (0.25 mg total) by mouth daily 150 mL 07/30/192024 Active spironolactone (ALDACTONE) 25 mg tablet Take [...] mg total) by mouth daily 120 mL 07/30/19 25 2024 Discontinued Active Problems Problem Noted Date Diagnosed Date Wound dehiscence 03/02/2020 At risk for venous thromboembolism (VTE) 020 Overview (08/24/2020): Problem added by Discern Expert Rule: EBN_VTERISKPROB_3 Patellar dislocation, left, subsequent encounter 01/18/2020 Overview (01/18/2020): Added automatically from request for surgery [id number] Charcot's joint of knee, left 01/18/2020 Overview (01/18/2020): Added automatically from request for surgery [id number] Cystic acne 12/02/2019 Hypertension 12/02/2019 Murmur 12/02/2019 [...] on file Legal Sex Male 3:13 AM SATURATOR OPERATOR Gender Identity Male 05/15/2020 1:43 PM SATURATOR OPERATOR Sexual Orientation Straight 03/15/2021 6: 46 PM SATURATOR OPERATOR Last Filed Vital Signs Vital Sign Reading Time Taken Comments Blood Pressure 108/62 07/06/2024 9:50 AM CDT Pulse 62 07/06/2024 9:50 AM CDT Temperature 37.1 C (98.8 F) 02/22/2020 8:00 AM SATURATOR OPERATOR Respiratory Rate 16 02/22/2020 8:00 AM SATURATOR OPERATOR Oxygen Saturation 96% 07/06/2024 9:50 AM CDT Inhaled Oxygen Concentration - - Weight 81.2 kg (179 lb) 07/06/2024 9:50 AM CDT Height 175.3 cm (5' 9) 07/06/2024 9:50 AM CDT Body Mass Index 26.43 07/06/2024 9:50 AM CDT Plan of Treatment Not on file Procedures Procedure Name Priority Date/Time Associated Diagnosis [...] CARDIOLOGY DOCUMENT SCAN Routine 05/21/2024 1:17 PM SATURATOR OPERATOR CARDIOLOGY DOCUMENT SCAN Routine 05/20/2024 1:14 PM SATURATOR OPERATOR CARDIOLOGY DOCUMENT SCAN Routine 05/19/2024 1:12 PM SATURATOR OPERATOR from Last 3 Months Results * XR [...] CDT) Digoxin 0.9 0.8 - 2.0 mcg/L [facility] Comment: DIETER Anti-Digoxin (Digibind(R)) in serum/plasma [...] of Heart Failure: A Report of the [place] College of Cardiology/[place] Heart Association Joint Committee on Clinical Practice Guidelines. J Am Lilly Cardiol. 2021, 79 (28) [id number]; Camilo SA, Taryn HF, Jose Miguel DK. Digoxin therapy for heart failure: an update. Am Fam Physician. 2005Oct 29;74(4):613-8) Blood 06/10/2024 9:24 AM CDT 06/10/2024 9:25 AM CDT us Jason Modi MD LAB BLOOD ORDERABLES Final Resul t [facility] [address] [place] [address] * (ABNORMAL) Basic metabolic panel (06/10/2024 9:24 AM CDT) Pathologist [facility] Glucose 92 65 - 99 mg/dL [facility] [...] MD LAB BLOOD ORDERABLES Final Resul t [facility] [address] [place] [address] * Cardiology Document Scan (05/24/2024 1:51 PM CDT) Anatomical Region Laterality Modality Other us Jason Modi MD CV CARDIAC SERVICES PROCEDURES F inal Result * Cardiology Document Scan (05/21/2024 1:17 PM SATURATOR OPERATOR) Anatomical Region Laterality Modality Other Linda Hubbard MD CV CARDIAC SERVICES PRO CEDURES Final Result * Cardiology Document Scan (05/20/2024 1:14 PM SATURATOR OPERATOR) Anatomical Region Laterality Modality Other Jason Modi MD CV CARDIAC SERVICES PROCEDURES F inal Result * Cardiology Document Scan (05/19/2024 1:12 PM SATURATOR OPERATOR) Anatomical Region Laterality Modality Other us Linda Hubbard MD CV CARDIAC SERVICES PRO CEDURES Final Result from Last 3 Months Insurance CIG [facility] ON LICENSE OF [facility] Advance Directives For more information, please contact: [phone] * Full Code (Latest Code Status on File) Date Activated Date Inactivated Comments 02/18/2020 7:34 PM 02/22/2020 8:32 PM Care Teams Button Decorating Machine Operator Relationship Specialty Start Date End Date Wayne Kurtz MD PCP - General 05/26/15
--- OUTSIDE RECORDS SUMMARY | 2024-08-11 09:56 | XMS_ITS | Encounter Summary ---
Author Organization [facility] Address [address] [place] [address] Phone Care Team Providers Care Heat Treating Operator Name Role Phone Wayne Kurtz MD Primary Care Provider Dayami Gill APRN, MATTRESS FILLER Unavailable [phone] Suman Becerra MD Unavailable [phone] Ngzoi De Luna APRN, MATTRESS FILLER Unavailable Reason for Visit * Reason Comments Medication Refill Encounter Details Date Type Department Care Team (Late st Contact Info) Description 05/05/2023 Refill [facility] - Gastroenterology - [place] [address] [place] [address] Ngozi De Luna APRN, MATTRESS FILLER [address] [place] [address] Medication Refill Social History Tobacco Use Types [...] Luiza Marcos RN - 05/09/2023 9:45 AM JANITORIAL MANAGER Patient was last seen by Kathy De Luna NP on 09/02/2022. azathioprine order pended, please review andapprove. TORIAL MANAGER * Telephone Encounter - Suman Becerra MD - 05/06/2023 12:23 PM CST No more refills without follow-up TORIAL MANAGER * Telephone Encounter - Luiza Marcos RN - 05/05/2023 9:23 AM JANITORIAL MANAGER Medication failed the protocol, provider to review [...] 09/02/22 Office Visit Ngozi De Luna APRN, MATTRESS FILLER [facility] Showing recent visits within past 365 days and meeting all other requirements Future Appointments No visits were found meeting these conditions. Showing future appointments within next 90 days and meeting all other requirements TORIAL MANAGER documented in this encounter Plan of Treatment Not on file documented as of this encounter Visit Diagnoses Diagnosis Ulcerative pancolitis without complication (HCC) documented in this encounter Care Teams Heat Treating Operator Relationship Specialty Start Date End Date Wayne Kurtz MD [address] [place] [address] [id number] PCP - General Family Medicine 04/09/16 Dayami Gill APRN, MATTRESS FILLER [address] [place] [address] [phone] Nurse Practitioner Advanced Practice Nurse 04/26/16 Suman Becerra MD [address] [place] [address] Consulting Physician Gastroenterology 05/24/21 Ngozi De Luna APRN, MATTRESS FILLER [address] [place] [address] Nurse Practitioner Advanced Practice Nurse 09/02/22 documented as of this encounter
--- NOTE | 2024-08-11 10:00 | PC.NURSE ---
Pt becoming more agitated, unable to follow commands, and becoming unstable. MD at bedside. EDP Enrique PARKER to intubate. VORB to administer 20mg etomidate and 100mg of succinylcholine. Rt at bedside. 20mg etomidate @ 1004 100mg succinylcholine @ 1005 [address] Nunez @ 1006, 23 at the lip. OG inserted @ 1010, 65 at the lip. Mckenzie catheter inserted.
[2024-08-11] MEDS: PROPOFOL IV EMULSION 100 ML 2.3 MG IV CONT (10:18)
[2024-08-11] MEDS: RAPID SEQUENCE INTUBATION KIT 1 EACH (10:19)
[2024-08-11] MEDS: FENTANYL 2,500MCG/NS250ML(*CRX 2,500 MCG/250 ML BAG IV CONT (10:37)
[2024-08-11] MEDS: MIDAZOLAM 100MG/NS 100ML(*CRX) 100 MG/100 ML BAG IV CONT (10:38)
[2024-08-11] MEDS: ACETAMINOPHEN 325 MG SUPPOSITORY 975 MG RECTAL (10:51)
[2024-08-11] MEDS: MIDAZOLAM HCL (*CRX) 2 MG/2 ML VIAL 4 MG IV PUSH (10:55)
[2024-08-11 11:05] LABS: Hematocrit 39.5 % (42.0-52.0); Hemoglobin 13.2 g/dL (14.0-18.0); Mean Corpuscular HGB Conc 33.4 g/dl (32-36); Mean Corpuscular Hemoglobin 31.5 pg (26-34); Mean Corpuscular Volume 94.3 fl (80-100); Mean Platelet Volume 10.4 fl (7.4-10.4); Platelet Count Result 276 k/mm3 (150-375); Red Blood Count 4.19 M/mm3 (4.6-6.20); Red Cell Distribution Width 14.4 % (11.5-14.5); White Blood Count 31.4 K/mm3 (4.5-10.0)
[2024-08-11 11:16] LABS: Estimated CRCL calculation 50 ml/min; Estimated Glomerular Filt Rate 43
[2024-08-11 11:19] LABS: INR 1.6; Prothrombin Time 18.9 Seconds (11.1-14.7)
[2024-08-11 11:20] LABS: Partial Thromboplastin Time 33.9 Seconds (22.3-36.8)
--- NOTE | 2024-08-11 11:30 | PC.NURSE ---
RN took pt to CT scan after IVP of 4mg versed d/t pt agitation. MD aware of pt low bp. MD made aware of continued low blood pressures upon arrival to room [address] prepared to insert central line when another critical pt came in by ambulance requiring EDP attention immediately. Only 1 EDP in ED at this time.
[2024-08-11 11:35] LABS: Band Neutrophils Percent 13 % (0-6); Lymphocytes Absolute Manual 0.31 K/mm3 (1.1-4.5); Monocytes Absolute Manual 2.19 K/mm3 (0.1-0.90); Monocytes Percent Manual 7 % (3-9); Neutrophils Absolute Manual 28.88 K/mm3 (1.3-6.7); Neutrophils Percent Manual 79 % (46-73); Platelet Estimate Adequate (Adequate); Schistocytes None Seen; Total Cells Counted 100
[2024-08-11 11:37] LABS: Amphetamine Screen Urine Negative (Negative); Barbiturate Screen Urine Negative (Negative); Benzodiazepines Screen Urine Negative (Negative); Cannabinoid Screen Urine Negative (Negative); Cocaine Screen Urine Negative (Negative); Methadone Screen Urine Negative (Negative); Opiate Screen Urine Negative (Negative); Phencyclidine Screen Urine Negative (Negative)
[2024-08-11 11:39] LABS: Influenza A QL RT-PCR Negative (Negative); Influenza B QL RT-PCR Negative (Negative); RSV RNA, RT-PCR Negative (Negative); SARS-CoV-2 RNA PCR Negative (Negative)
[2024-08-11 11:43] LABS: Add Urine Microscopic? YES; Appearance Urine Cloudy (Clear); Bacteria Urine 4+ /hpf; Bilirubin Urine Negative (Negative); Blood Urine 3+ (Negative); Color Urine Yellow (Yellow); Glucose Urine UA 2+ mg/dL (Negative); Ketones Urine Negative (Negative); Leukocyte Esterase Ur 2+ LEU/UL (Negative); Need Manual Microscopic Reviewed; Nitrate Urine Positive (Negative); Non Pathogenic Casts >20; Protein Urine 3+ mg/dL (Negative); RBC Urine >100 /hpf (0-2); Specific Grav Ur 1.013 (1.001-1.035); Squamous Epithelial Cell Urine None Seen /hpf (Few); Urobilinogen Urine 0.2 mg/dL (<2.0); WBC Urine >100 /hpf (0-3); pH Urine 7.5 (5.0-9.0)
[2024-08-11 12:22] LABS: Alveolar/Arterial O2 Gradient 147.5 mmHg; Fractional Inspired Oxygen 65 %; HCO3 ABG 22.3 mEq/l (22.0-26.0); Oxygen Saturation ABG 99.7 % (95.0-100.0); Oxyhemoglobin 99.1 % THb (90.0-100.0); PCO2 ABG 32.4 mmHg (35.0-45.0); PO2 ABG 280.7 mmHg (80.0-100.0); PO2 FiO2 Ratio Arterial Blood 4.32 %; Total Hemoglobin 11.7 g/dL (12.0-18.0); pH ABG 7.455 (7.350-7.450)
--- NOTE | 2024-08-11 12:27 | ED_ITS ---
HPI - General Adult General Chief complaint: Arrhythmia/Palpitations Stated complaint: unresponsive Time Seen by Provider: 08/11/24 09:45 History of Present Illness HPI narrative: Patient is a 48-year-old gentleman presents emergency department chief complaint of altered mental status patient was found laying on the ground after he became extremely weak patient was found to be tachycardic by EMS history is limited patient does have prior history of heart failure and also history of a tracheostomy in difficult airway Related Data Home Medications ?Medication ?Instructions ?Recorded ?Confirmed ?Last Taken ?Type adalimumab 40 mg/0.8 mL 40 mg subcut Q14D 03/19/19 06/15/24 06/05/20 History subcutaneous pen kit (Humira Pen) alendronate 70 mg tablet 70 mg PO WEEKLY 03/19/19 06/15/24 11/02/22 03:00 History folic acid 1 mg tablet 1 mg PO DAILY 03/19/19 06/15/24 10/27/22 08:00 History calcium carbonate (Calcium 500) 500 mg PO BID 03/25/19 06/15/24 11/03/22 03:00 History glucosamine-chondroitin 250 mg-200 2 tablet PO DAILY 03/25/19 06/15/24 11/03/22 03:00 History mg tablet (Osteo Bi-Flex) multivitamin,[id number] 1 tablet PO DAILY 03/25/19 06/15/24 11/03/22 03:00 History (Complete Multivitamin tablet) azathioprine 50 mg tablet (Imuran) 100 mg PO DAILY 06/06/20 06/15/24 11/03/22 History 0300 Allergies Allergy/AdvReac Type Severity Reaction Status Date / Time No Known Allergies Allergy Verified 06/15/24 10:58 Review of Systems 2 Review of Systems: A 10 system review of systems was completed on the patient and is negative except for what is stated in the HPI. Nursing and ancillary documentation was reviewed. [facility]LY [facility] Past Medical History Medical History Frequent falls Atrial fibrillation Hyponatremia History of seizure Hx of traumatic brain injury Heart murmur Pulmonary nodule Osteoporosis Brain aneurysm Ulcerative colitis Hypertension Surgical History Surgical History [employer] (ventriculoperitoneal) shunt status H/O left knee surgery Hx of tracheostomy Hx of colonoscopy Hx of brain surgery S/P clamping of cerebral aneurysm Family History Family History Father Hypertension Family history of coronary artery disease Mother Hypertension Family history of coronary artery disease Grandparent Carcinoma of colon Diabetes mellitus Social History Social History Social History: The patient is currently living with his grandmother and helps to take care of her. The patient walks with a walker typically but has been in a wheelchair recently. Lifelong nonsmoker. He denies any alcohol marijuana or illicit drugs. The patient denies being on disability but is unemployed at this time Code status full code Smoking status: Never smoker Alcohol intake: unknown Substance use: unknown Substance use type: does not use Lack of Transportation: No Lack of Food: Never True Current Housing: I Have Housing Concerned About Future Housing: No Difficulty Paying Gas/Electric Bills: No Difficulty Paying for Meds: No Currently Unemployed: No Education: Trade/Vocational Certificate Difficulty w/ Childcare or Family Care: No Living arrangements: with family Gender identity (if verbalized by the patient): Male Spiritual care concerns: No Exam 2 Narrative: GENERAL: Ill-appearing, well-nourished, and in moderate to severe acute distress. Diaphoretic HEAD: Normocephalic, atraumatic. EYES: PERRLA and EOMI. ENT: Nares clear, no rhinorrhea or epistaxis. Mucous membranes moist. NECK: Supple. CHEST: Clear to auscultation. No respiratory distress. HEART: Tachycardic rate and rhythm. No murmur heard. Normal peripheral pulses. ABDOMEN: Soft, nontender, nondistended, normal active bowel sounds. EXTREMITIES: Normal range of motion. No edema. SKIN: Warm, diaphoretic, no rash. NEURO: No focal deficits. Alert slow to respond. PSYCH: Normal mood and affect. Course Vital Signs Vital signs: Vital Signs Temperature 39.2 C H 08/11/24 09:32 Pulse Rate 160 H 08/11/24 09:32 Respiratory Rate 26 H 08/11/24 09:32 Blood Pressure 203/140 H 08/11/24 09:32 Temperature 39.4 C H 08/11/24 10:51 Pulse Rate 122 H 08/11/24 11:00 Respiratory Rate 20 08/11/24 11:00 Blood Pressure 203/140 H 08/11/24 09:32 Pulse Oximetry 98 08/11/24 10:18 Oxygen Delivery Mechanical Ventilation 08/11/24 10:18 Oxygen Flow Rate 15 08/11/24 09:47 Fraction of Inspired Oxygen 100 08/11/24 10:18 Procedures Intubation Intubation #1: Intubation Date: 08/11/24 Intubation Time: 12:31 Time out performed: Yes sedative: Etomidate Mg Given: 20 paralytic: Succinylcholine Mg Given: 100 Laryngoscope: Bryan Assist Device Used: fiber optic device Tube Size (cm): 7.5 Method of Intubation: orotracheal Number of Attempts: 1 Tube Secured Depth (cm): 23 Tube Secured Location: lips Tube Placement Confirmation: visualized tube passing through cords, equal breath sounds bilaterally, no breath sounds over epigastrium and confirmation by capnometry Patient Tolerated Procedure: well Intubation Complications: none Medical Decision Making MDM Narrative Medical decision making narrative: Differential diagnosis includes sepsis, respiratory failure, intracranial hemorrhage, CT head showed no intracranial hemorrhage CT chest abdomen pelvis showed evidence of pneumonia [place] [id number] Patient was febrile Fluid resuscitation and antipyretics were started Patient was placed on mechanical ventilation the patient subsequently, hypertensive Vital Signs Vital Signs: Vital Signs Temperature 39.2 C H 08/11/24 09:32 Pulse Rate 160 H 08/11/24 09:32 Respiratory Rate 26 H 08/11/24 09:32 Blood Pressure 203/140 H 08/11/24 09:32 Temperature 39.4 C H 08/11/24 10:51 Pulse Rate 122 H 08/11/24 11:00 Respiratory Rate 20 08/11/24 11:00 Blood Pressure 203/140 H 08/11/24 09:32 Pulse Oximetry 98 08/11/24 10:18 Oxygen Delivery Mechanical Ventilation 08/11/24 10:18 Oxygen Flow Rate 15 08/11/24 09:47 Fraction of Inspired Oxygen 100 08/11/24 10:18 Lab Data 08/11/24 10:54 08/11/24 11:15 Labs: Lab Results 08/11/24 08/11/24 08/11/24 Range/Units 10:53 10:54 10:57 WBC 31.4 H (4.5-10.0) K/mm3 RBC 4.19 L (4.6-6.20) M/mm3 Hgb 13.2 L (14.0-18.0) g/dL Hct 39.5 L (42.0-52.0) % MCV 94.3 (80-100) fl MCH 31.5 (26-34) pg MCHC 33.4 (32-36) g/dl RDW 14.4 (11.5-14.5) % Plt Count 276 (150-375) k/mm3 MPV 10.4 (7.4-10.4) fl Immature Gran % (Auto) Not Reportable Neut % (Auto) Not Reportable Lymph % (Auto) Not Reportable [place] % (Auto) Not Reportable Eos % (Auto) Not Reportable Baso % (Auto) Not Reportable Lymph # (Auto) Not Reportable [place] # (Auto) Not Reportable Eos # (Auto) Not Reportable Baso # (Auto) Not Reportable Abs Immat Gran (auto) Not Reportable Absolute Neuts (auto) Not Reportable Absolute Nucleated RBC Not Reportable Total Counted 100 Neutrophils % (Manual) 79 H (46-73) % Band Neutrophils % 13 H (0-6) % Lymphocytes % (Manual) 1.0 L (18-44) % Monocytes % (Manual) 7 (3-9) % Nucleated RBC % Not Reportable Abs Neuts (Manual) 28.88 H (1.3-6.7) K/mm3 Abs Lymphs (Manual) 0.31 L (1.1-4.5) K/mm3 Abs Monocytes (Manual) 2.19 H (0.1-0.90) K/mm3 Platelet Estimate Adequate (Adequate) Schistocytes None seen PT 18.9 H (11.1-14.7) Seconds INR 1.6 APTT 33.9 (22.3-36.8) Seconds Sodium Pending Potassium Pending Chloride Pending Carbon Dioxide Pending Anion Gap Pending BUN Pending Creatinine Pending Estim Creat Clear Calc Pending Estimated GFR Pending Glucose Pending Lactic Acid Pending Calcium Pending Magnesium Pending Total Bilirubin Pending AST Pending ALT Pending Alkaline Phosphatase Pending Total Creatine Kinase Pending Troponin I Pending NT-Pro-B Natriuret Pep Pending Total Protein Pending Albumin Pending Triglycerides Pending Lipase Pending Procalcitonin Pending Urine Color Yellow (Yellow) Urine Appearance Cloudy H (Clear) Urine pH 7.5 (5.0-9.0) Ur Specific [place] 1.013 (1.001-1.035) Urine Protein 3+ H (Negative) mg/dL Urine Glucose (UA) 2+ H (Negative) mg/dL Urine Ketones Negative (Negative) mg/dL Ur Blood (Man) 3+ H (Negative) Urine Nitrate Positive H (Negative) Urine Bilirubin Negative (Negative) Urine Urobilinogen 0.2 (<2.0) mg/dL Add Ur Microanalysis Reviewed Leukocyte Esterase Rfl 2+ H (Negative) MARILU/UL Urine RBC >100 H (0-2) /hpf Urine WBC >100 H (0-3) /hpf Ur Squamous Epith Cells None seen (Few) /hpf Urine Bacteria 4+ H /hpf Urine Casts >20 Digoxin Pending Urine Opiates Screen Negative (Negative) Urine Methadone Screen Negative (Negative) Ur Barbiturates Screen Negative (Negative) Ur Phencyclidine Scrn Negative (Negative) Ur Amphetamine Screen Negative (Negative) U Benzodiazepines Scrn Negative (Negative) Urine Cocaine Screen Negative (Negative) U Cannabinoids Screen Negative (Negative) Ethyl Alcohol Pending Influenza A (RT-PCR) Negative (Negative) Influenza B (RT-PCR) Negative (Negative) RSV (RT-PCR) Negative (Negative) SARS-CoV-2 RNA (RT-PCR) Negative (Negative) 08/11/24 Range/Units 11:15 WBC (4.5-10.0) K/mm3 RBC (4.6-6.20) M/mm3 Hgb (14.0-18.0) g/dL Hct (42.0-52.0) % MCV (80-100) fl MCH (26-34) pg MCHC (32-36) g/dl RDW (11.5-14.5) % Plt Count (150-375) k/mm3 MPV (7.4-10.4) fl Immature Gran % (Auto) Neut % (Auto) Lymph % (Auto) [place] % (Auto) Eos % (Auto) Baso % (Auto) Lymph # (Auto) [place] # (Auto) Eos # (Auto) Baso # (Auto) Abs Immat Gran (auto) Absolute Neuts (auto) Absolute Nucleated RBC Total Counted Neutrophils % (Manual) (46-73) % Band Neutrophils % (0-6) % Lymphocytes % (Manual) (18-44) % Monocytes % (Manual) (3-9) % Nucleated RBC % Abs Neuts (Manual) (1.3-6.7) K/mm3 Abs Lymphs (Manual) (1.1-4.5) K/mm3 Abs Monocytes (Manual) (0.1-0.90) K/mm3 Platelet Estimate (Adequate) Schistocytes PT (11.1-14.7) Seconds INR APTT (22.3-36.8) Seconds Sodium Potassium Chloride Carbon Dioxide Anion Gap BUN Creatinine 1.70 H Estim Creat Clear Calc 50 Estimated GFR 43 L Glucose Lactic Acid Calcium Magnesium Total Bilirubin AST ALT Alkaline Phosphatase Total Creatine Kinase Troponin I NT-Pro-B Natriuret Pep Total Protein Albumin Triglycerides Lipase Procalcitonin Urine Color (Yellow) Urine Appearance (Clear) Urine pH (5.0-9.0) Ur Specific [place] (1.001-1.035) Urine Protein (Negative) mg/dL Urine Glucose (UA) (Negative) mg/dL Urine Ketones (Negative) mg/dL Ur Blood (Man) (Negative) Urine Nitrate (Negative) Urine Bilirubin (Negative) Urine Urobilinogen (<2.0) mg/dL Add Ur Microanalysis Leukocyte Esterase Rfl (Negative) MAIRLU/UL Urine RBC (0-2) /hpf Urine WBC (0-3) /hpf Ur Squamous Epith Cells (Few) /hpf Urine Bacteria /hpf Urine Casts Digoxin Urine Opiates Screen (Negative) Urine Methadone Screen (Negative) Ur Barbiturates Screen (Negative) Ur Phencyclidine Scrn (Negative) Ur Amphetamine Screen (Negative) U Benzodiazepines Scrn (Negative) Urine Cocaine Screen (Negative) U Cannabinoids Screen (Negative) Ethyl Alcohol Influenza A (RT-PCR) (Negative) Influenza B (RT-PCR) (Negative) RSV (RT-PCR) (Negative) SARS-CoV-2 RNA (RT-PCR) (Negative) Discharge Plan Discharge Clinical Impression: Respiratory failure Sepsis Qualifiers: Sepsis type: sepsis due to unspecified organism Sepsis acute organ dysfunction status: with acute organ dysfunction Severe sepsis acute organ dysfunction type: encephalopathy Severe sepsis shock status: without septic shock Qualified Code(s): A41.9 - Sepsis, unspecified organism Pneumonia Qualifiers: Pneumonia type: due to unspecified organism Laterality: bilateral Lung location: lower lobe of lung Qualified Code(s): J18.9 - Pneumonia, unspecified organism Patient Disposition: Still a Patient Condition: Stable Patient Language: Romansh Prescriptions: No Action alendronate 70 mg tablet 70 mg PO WEEKLY Rx Instructions: Takes Every Friday folic acid 1 mg tablet 1 mg PO DAILY Humira Pen 40 mg/0.8 mL pen injector kit 40 mg SUBCUT Q14D Patient Comments: Every other Friday Rx Instructions: Due to take 11/04/2022 calcium carbonate [Calcium 500] 500 mg calcium (1,250 mg) Tablet 500 mg PO BID Complete Multivitamin Tablet 1 tablet PO DAILY glucosamine-chondroitin [Osteo Bi-Flex] 250-200 mg Tablet 2 tablet PO DAILY azathioprine [Imuran] 50 mg Tablet 100 mg PO DAILY furosemide 40 mg Tablet 40 mg PO DAILY 30 Days Qty: 30 1RF metoprolol succinate [Toprol XL] 100 mg Tablet Extended Release 24 Hr 200 mg PO QAM 30 Days Qty: 60 1RF digoxin [Digitek] 250 mcg (0.25 mg) Tablet 250 mcg PO QAM 30 Days Qty: 30 1RF spironolactone 25 mg Tablet 25 mg PO QAM 30 Days Qty: 30 1RF tamsulosin 0.4 mg Capsule 0.4 mg PO QAM 30 Days Qty: 30 1RF Eliquis 5 mg Tablet 5 mg PO Q12HR 30 Days Qty: 60 1RF Jardiance 10 mg Tablet 10 mg PO DAILY 30 Days Qty: 30 1RF sacubitril-valsartan [Entresto] 24-26 mg Tablet 1 tab PO Q12HR 30 Days Qty: 60 1RF sulfasalazine 500 mg tablet 500 mg PO QID 90 Days Qty: 360 3RF Follow-up/Referrals: Wayne Kurtz MD [Primary Care Provider] - Time of Disposition: 12:34
[2024-08-11 12:29] LABS: Device VENTILATOR; Modified Allen's Test Pass; Site Drawn RIGHT BRACHIAL
[2024-08-11 12:30] LABS: Arterial Blood Gas PEEP 5 cmH2O; Arterial Blood Gas Tidal Volume 500 ml; Arterial Blood Gas Vent Mode CMV; Arterial Blood Gas Ventilator rate 12 /MIN
[2024-08-11] MEDS: NOREPINEPHRINE 8 MG/D5W 250 ML 8 MG/250 ML BAG 28.13 MG IV CONT (12:50)
--- NOTE | 2024-08-11 12:50 | PC.NURSE ---
Dr. Yao at bedside, VORB to administer norepinephrine starting at 15mcg/min.
--- NOTE | 2024-08-11 13:30 | ADMGEN ---
This patient, Moose Miranda, was admitted to Intensive Care Unit-6. Patient/family oriented to hospital policies and general routines including ID bracelet, bed and alarms, visiting hours, pain management, procedures, bathroom and other care routines, personal items, smoking policy, room service/diet, and visiting hours. Information on how to activate the Rapid Response Team has been discussed. Patient/Family are encouraged to report perceived risks to care and to ask questions if they do not understand what they are told or what they should do.
--- NOTE | 2024-08-11 13:38 | PM.IMHP ---
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 The patient presents here on 08/11 from home via EMS for further evaluation after the patient was found unresponsive. He currently lives at home with his grandmother. He was last seen well this morning by his grandmother eating breakfast. He was found by his grandmother laying on the ground covered in emesis. Upon EMS arrival, he was found to be in SVT with a heart rate in the 240s and he was subsequently cardioverted which reduces heart rate into the 160s. He was able to follow some commands prior to intubation and was that and in route to the hospital by EMS. Family (mother and sister) reports he is compliant with his prescription medications. No precipitating symptoms known to them. Initial VS at presentation: 102.6? F, HR 160, R 26, 203/140, and 100% on NRB. Remains 100% post intubation on mechanical ventilation. ED workup showed: WBC 31.4, hemoglobin 13.2 (previously 14.1 on 07/10/2024), ABG showed a pH of 7.455/CO2 32.4/O2 280.7, creatinine 1.7 and GFR 43 (previously 0.87 and GFR 107 on 07/10/2024), UA consistent with UTI. Viral PCR negative. UDS negative. CXR showed mild pulmonary vascular congestion. Head CT showed no acute abnormalities and chronic findings (see findings for full details). CT w/con of the chest/abdomen/pelvis showed a left lower lobe consolidation right basilar atelectasis, no hollow or solid organ injury, no acute fractures. Review of Systems Review of Systems: ROS unobtainable: Yes unobtainable due to endotracheal tube PMFSH Past Medical History Medical History (Updated 08/11/24 @ 14:23 by Shonda Hopkins, PLASTIC SURGERY SPECIALIST) Pulmonary hypertension Rheumatoid arthritis Hyponatremia MVP (mitral valve prolapse) Systolic heart failure Frequent falls Atrial fibrillation History of seizure Hx of traumatic brain injury Heart murmur Pulmonary nodule Osteoporosis Brain aneurysm Ulcerative colitis Hypertension Surgical History Surgical History PESTICIDE CONTROL INSPECTOR (ventriculoperitoneal) shunt status H/O left knee surgery Hx of tracheostomy Hx of colonoscopy Hx of brain surgery S/P clamping of cerebral aneurysm Family History Family History Father Hypertension Family history of coronary artery disease Mother Hypertension Family history of coronary artery disease Grandparent Carcinoma of colon Diabetes mellitus Social History Social History Social History: The patient is currently living with his grandmother and helps to take care of her. The patient walks with a walker typically but has been in a wheelchair recently. Lifelong nonsmoker. He denies any alcohol marijuana or illicit drugs. The patient denies being on disability but is unemployed at this time Code status full code Smoking status: Never smoker Alcohol intake: unknown Substance use: unknown Substance use type: does not use Lack of Transportation: No Lack of Food: Never True Current Housing: I Have Housing Concerned About Future Housing: No Difficulty Paying Gas/Electric Bills: No Difficulty Paying for Meds: No Currently Unemployed: No Education: Trade/Vocational Certificate Difficulty w/ Childcare or Family Care: No Living arrangements: with family Gender identity (if verbalized by the patient): Male Spiritual care concerns: No Meds Home Medications and Allergies Home Medications ?Medication ?Instructions ?Recorded ?Confirmed ?Type adalimumab 40 mg/0.8 mL 40 mg subcut Q14D 03/19/19 08/11/24 History subcutaneous pen kit (Humira Pen) alendronate 70 mg tablet 70 mg PO WEEKLY 03/19/19 08/11/24 History folic acid 1 mg tablet 1 mg PO DAILY 03/19/19 08/11/24 History calcium carbonate (Calcium 500) 500 mg PO BID 03/25/19 08/11/24 History glucosamine-chondroitin 250 mg-200 2 tablet PO DAILY 03/25/19 08/11/24 History mg tablet (Osteo Bi-Flex) multivitamin,vo-eqkq-kkrszvlm 1 tablet PO DAILY 03/25/19 08/11/24 History (Complete Multivitamin tablet) azathioprine 50 mg tablet (Imuran) 100 mg PO DAILY 06/06/20 08/11/24 History apixaban 5 mg tablet (Eliquis) 5 mg PO Q12HR 30 days #60 tabs 05/24/24 08/11/24 Rx digoxin 250 mcg (0.25 mg) tablet 250 mcg PO QAM 30 days #30 tabs 05/24/24 08/11/24 Rx (Digitek) empagliflozin 10 mg tablet 10 mg PO DAILY 30 days #30 tabs 05/24/24 08/11/24 Rx (Jardiance) furosemide 40 mg tablet 40 mg PO DAILY 30 days #30 tabs 05/24/24 08/11/24 Rx metoprolol succinate 100 mg 200 mg (2 x 100 mg) PO QAM 30 days 05/24/24 08/11/24 Rx tablet,extended release 24 hr #60 tabs (Toprol XL) sacubitril 24 mg-valsartan 26 mg 1 tab PO Q12HR 30 days #60 tabs 05/24/24 08/11/24 Rx tablet (Entresto) spironolactone 25 mg tablet 25 mg PO QAM 30 days #30 tabs 05/24/24 08/11/24 Rx tamsulosin 0.4 mg capsule 0.4 mg PO QAM 30 days #30 caps 05/24/24 08/11/24 Rx sulfasalazine 500 mg tablet 500 mg PO QID 90 days #360 tabs 07/29/24 08/11/24 Rx Allergies Allergy/AdvReac Type Severity Reaction Status Date / Time No Known Allergies Allergy Verified 06/15/24 10:58 Vital Signs Vital Signs - 24 hr 08/11/24 09:32 08/11/24 09:47 08/11/24 10:02 Temperature 102.6 F H 103.7 F H Pulse Rate 160 H 154 H Respiratory Rate 26 H 21 H Blood Pressure 203/140 H 231/197 H Pulse Oximetry 100 93 Oxygen Delivery Non-Rebreather Mask Oxygen Flow Rate 15 Fraction of Inspired Oxygen 08/11/24 10:03 08/11/24 10:05 08/11/24 10:18 Temperature 103.8 F H Pulse Rate 153 H 122 H Respiratory Rate 30 H 20 Blood Pressure Pulse Oximetry Oxygen Delivery Mechanical Ventilation Oxygen Flow Rate Fraction of Inspired Oxygen 08/11/24 10:18 08/11/24 10:22 08/11/24 10:34 Temperature 103.2 F H Pulse Rate 120 H 124 H Respiratory Rate 20 Blood Pressure Pulse Oximetry 98 Oxygen Delivery Mechanical Ventilation Oxygen Flow Rate Fraction of Inspired Oxygen 100 08/11/24 10:37 08/11/24 10:37 08/11/24 10:38 Temperature Pulse Rate 123 H 118 H 123 H Respiratory Rate 20 20 20 Blood Pressure Pulse Oximetry Oxygen Delivery Oxygen Flow Rate Fraction of Inspired Oxygen 08/11/24 10:40 08/11/24 10:49 08/11/24 10:50 Temperature 103 F H Pulse Rate 119 H 124 H 120 H Respiratory Rate 24 H 19 17 Blood Pressure 68/54 L Pulse Oximetry Oxygen Delivery Oxygen Flow Rate Fraction of Inspired Oxygen 08/11/24 10:50 08/11/24 10:51 08/11/24 11:00 Temperature 102.7 F H 103 F H Pulse Rate 125 H 122 H Respiratory Rate 19 20 Blood Pressure 87/60 L Pulse Oximetry 100 Oxygen Delivery Oxygen Flow Rate Fraction of Inspired Oxygen 08/11/24 11:00 08/11/24 11:00 08/11/24 11:50 Temperature 102.5 F H 102 F H Pulse Rate 122 H 122 H 101 H Respiratory Rate 20 19 13 Blood Pressure 70/46 L 63/41 L Pulse Oximetry 100 100 Oxygen Delivery Oxygen Flow Rate Fraction of Inspired Oxygen 08/11/24 12:00 08/11/24 12:10 08/11/24 12:20 Temperature 102 F H 102 F H 102 F H Pulse Rate 96 93 96 Respiratory Rate 15 13 12 Blood Pressure 52/41 L 61/43 L 66/49 L Pulse Oximetry 100 100 100 Oxygen Delivery Oxygen Flow Rate Fraction of Inspired Oxygen 08/11/24 12:30 08/11/24 12:40 08/11/24 12:50 Temperature 101 F H 93 F L Pulse Rate 94 93 93 Respiratory Rate 12 13 Blood Pressure 63/49 L 64/49 L 64/49 L Pulse Oximetry 100 100 Oxygen Delivery Oxygen Flow Rate Fraction of Inspired Oxygen 08/11/24 12:50 08/11/24 13:16 08/11/24 13:17 Temperature 101 F H 100.9 F H 100.9 F H Pulse Rate 93 94 95 Respiratory Rate 12 12 12 Blood Pressure 60/50 L 78/60 L Pulse Oximetry 100 100 100 Oxygen Delivery Oxygen Flow Rate Fraction of Inspired Oxygen Exam Const: Other: , male, acute on chronic ill appearance HENMT: Face/Nose/Sinus: Normal nares present Mouth: Yes moist mucous membranes Eyes: General: appearance normal, both eyes and all related structures Sclera: sclerae normal Pupils: Equal, round and reactive pupils present (2 mm bilaterally) Resp: Effort & Inspection: normal respiratory effort Other: Intubated on mechanical ventilation, tolerating well. Faint crackles in the left lower lobe. No wheezing. Cardio: Rate: tachycardic (90-110) Rhythm: regular rhythm Other: S1-S2 present without murmur, rub, ectopy GI: Other: Abdomen soft, nondistended, nontender. Normoactive bowel sounds in all quadrants. Urinary Catheter: Urinary Catheter: patent and draining Skin: General skin exam: normal color and no rashes or lesions noted Wounds: no wounds Neuro: Other: Intubated and sedated. Extrem: General: normal to inspection Psych: Other: Intubated and sedated, unable to assess. H&P: Results Labs Labs: Short CBC 08/11/24 Range/Units 10:54 WBC 31.4 H (4.5-10.0) K/mm3 Hgb 13.2 L (14.0-18.0) g/dL Hct 39.5 L (42.0-52.0) % Plt Count 276 (150-375) k/mm3 BMP 08/11/24 11:15 Creatinine 1.70 H Urine 08/11/24 Range/Units 10:54 Urine Color Yellow (Yellow) Urine Appearance Cloudy H (Clear) Urine pH 7.5 (5.0-9.0) Ur Specific Sellers 1.013 (1.001-1.035) Urine Protein 3+ H (Negative) mg/dL Urine Glucose (UA) 2+ H (Negative) mg/dL Assessment and Plan Assessment and plan (1) Septic shock: Code(s): A41.9 - Sepsis, unspecified organism; R65.21 - Severe sepsis with septic shock Status: Acute Assessment and Plan: - meets SIRS criteria: HR, RR, WBC. - lactic acid and procalcitonin pending. - 30 mL/kg = 2.3L, given 3 L bolus in ED -> 125 mL/hr. monitor I&Os. - suspected source: UTI, pneumonia - started on cefepime and vancomycin. Added doxycycline and Flagyl due to possibility of aspiration pneumonia. - blood cultures drawn on 08/11, follow - hemodynamic instability upon arrival. Patient intubated, tolerating mechanical ventilation well. Central line placed and patient started on Levophed. - Solu-Cortef 100 mg Q8 and pantoprazole IV daily - admission to the ICU for close hemodynamic monitoring, back end web developer consulted see note (2) Pneumonia: Qualifiers: Laterality: bilateral Lung location: lower lobe of lung Pneumonia type: due to unspecified organism Qualified Code(s): J18.9 - Pneumonia, unspecified organism Code(s): J18.9 - Pneumonia, unspecified organism Status: Acute Assessment and Plan: - Imaging concerning for a left basilar pneumonia. Patient also found covered in emesis raising concern for aspiration. - started on vancomycin, cefepime, doxycycline, and Flagyl on 08/11 - MRSA PCR negative on 05/14/2024, repeat - Viral PCR negative - sputum culture reviewed, previously grew Pseudomonas on 05/15/2024. Repeat if obtainable. - currently on mechanical ventilation, tolerating well and satting 100%. - supportive care - trend WBC (3) UTI (urinary tract infection): Qualifiers: Urinary tract infection type: acute cystitis Hematuria presence: without hematuria Qualified Code(s): N30.00 - Acute cystitis without hematuria Code(s): N39.0 - Urinary tract infection, site not specified Status: Acute Assessment and Plan: - UA: Cloudy, 3+ protein, 2+ glucose, 3+ blood, positive nitrates, 2+ leuks, greater than 100 RBC and WBC, 4+ bacteria - UC pending - reviewed previous micro, no previous positive urine cultures available for review - started on cefepime on 08/11 (4) Systolic heart failure: Qualifiers: Heart failure chronicity: chronic Qualified Code(s): I50.22 - Chronic systolic (congestive) heart failure Code(s): I50.20 - Unspecified systolic (congestive) heart failure Status: Chronic Assessment and Plan: - hold home medication: Lasix 40 mg daily, currently requiring pressors. - monitor I&Os (5) Hypertension: Qualifiers: Hypertension type: unspecified Qualified Code(s): I10 - Essential (primary) hypertension Code(s): I10 - Essential (primary) hypertension Status: Chronic Assessment and Plan: - chronic, currently hypotensive requiring pressors - hold home medications - monitor Plan Diet: NPO, q.6 glucose management with hypoglycemia protocol GI Prophylaxis: Pantoprazole IV DVT Prophylaxis: Eliquis IV fluids: NS 125 mL/hour Lines/Tubes: Peripheral IV, central line, intubated, Mckenzie Code Status: Full code Quality VTE Prophylaxis VTE prophylaxis: pharmacologic ordered Critical Care Time: I personally spent 45 minutes of direct patient care including (but not limited to) the physical examination, decision-making, bedside evaluation, review of medical records, review of labs and imaging, discussion with nursing staff and other providers for collaborative, critical care management of this patient. Hospitalist [facility] Advance Care Plan I have confirmed that the patient's Advanced Care Plan is present, code status is documented, or surrogate decision maker is listed in patient medical record.: Yes Medication Reconciliation I have utilized all available resources to obtain, update and review the patients current medications (includes all prescriptions, OTC, herbals, cannabis, and nutritional supplements).: Yes
--- NOTE | 2024-08-11 13:40 | WPDPROCEDUR ---
Procedures Central Line Placement Right IJ: Central Line Date: 08/11/24 Central Line Time: 13:35 Consent: I have discussed with the patient and/or surrogate, the non-emergent placement of a central venous catheter, including its clinical necessity/indication and associated potential risks and complications. The patient and/or surrogate understand(s) and acknowledge(s) the need to proceed with central venous catheter insertion as an important element of the patient's clinical management. Time Out Performed: Yes Patient Position: supine Patient placed on monitor/pulse ox: Yes Provider Prep: mask, sterile gown, sterile gloves, Max. sterile barrier precautions, cap and hand hygiene with conventional soap/water or alcohol based hand rub Central line prep: 2% Chlorhexidine scrub Local anesthesia used: lidocaine 1% Amount of anesthesia used (ml): 2 Sterile US Technique with sterile gel/sterile probe covers: Yes Central line lumen inserted: triple [place]an: 7 Length (cm): 16 Depth of Insertion (cm): 16 Post Procedure: sutured in place, good blood return, all ports aspirated, flushed, capped, transparent dressing, hemostatic product, antimicrobial product, securement product and aseptic technique maintained throughout procedure Post procedure x-ray: tip of catheter in good position and no pneumothorax seen Patient tolerated procedure: well Complications: none
--- NOTE | 2024-08-11 13:41 | P.CONIN_ITS ---
Assessment and Plan Assessment and plan (1) Septic shock: Code(s): A41.9 - Sepsis, unspecified organism; R65.21 - Severe sepsis with septic shock Status: Acute Assessment and Plan: 08/11: Patient admitted with SVT, status post cardioversion by EMS. Was found down at home, with vomit on himself, respiratory distress, -patient was found to be hypotensive, likely related to septic shock, SVT, aspiration pneumonia, UTI -patient was given 1 L IV fluid bolus in the ER, will give additional IV fluid bolus in the ICU given history of cardiomyopathy with EF of 35-40% -patient started on Levophed infusion, maintain MAP 65 mmHg or SBP > 100 mmHg -will add vasopressin -started on stress dose steroids -started on cefepime, vancomycin, Flagyl, doxycycline (08/11) (2) Acute respiratory failure: Code(s): J96.00 - Acute respiratory failure, unspecified whether with hypoxia or hypercapnia Status: Acute Assessment and Plan: Acute respiratory failure could be related to SVT, hypotension, septic shock, aspiration pneumonia, UTI -08/11: was intubated in the ED -remains on CMV mode of ventilation, peep of 5, 40% FiO2 -chest x-ray and ABGs reviewed, ventilator adjusted, wean FiO2 to maintain O2 sats> 92% -sedated with fentanyl and Versed infusion, maintain RASS of 0 to -2 -daily SBT and SAT -will add DuoNeb (3) Acute alteration in mental status: Code(s): R41.82 - Altered mental status, unspecified Status: Acute Assessment and Plan: Likely related to hypotension, SVT, infection -will treat underlying cause -CT scan of the brain did not show any acute intracranial abnormality (4) Pneumonia: Code(s): J18.9 - Pneumonia, unspecified organism Status: Acute Assessment and Plan: Pneumonia as seen on CT scan of the chest abdomen pelvis -antibiotics as above -patient was negative from influenza, RSV and SARS-CoV-2 PCR 08/11: CT scan of the chest/abdomen/pelvis showed left lower lobe consolidation and right basal atelectasis, no all or solid organ injury, no acute fracture. (5) UTI (urinary tract infection): Code(s): N39.0 - Urinary tract infection, site not specified Status: Acute Assessment and Plan: UA was reflective of UTI -patient has a history of UTI with Pseudomonas (05/16/2024) which was resistant to fluoroquinolones -continue antibiotics as above -08/11: Blood cultures have been obtained and pain -08/11: Urine cultures obtained and pending (6) Systolic heart failure: Code(s): I50.20 - Unspecified systolic (congestive) heart failure Status: Chronic Assessment and Plan: Patient with systolic heart failure with a EF of 35-40% Patient has been on GDMT, will hold for now as patient on pressors Will be cautious with IV fluids 05/15/2024: Echocardiogram Summary 1. Complete two-dimensional, color flow and Doppler transthoracic echocardiogram is performed. 2. Left ventricular chamber dimension is mildly enlarged. 3. Left ventricular systolic function is moderately reduced, estimated at 35-40%. 4. There is mildly increased left ventricular wall thickness. 5. The left ventricular diastolic function is abnormal. 6. Left atrial chamber dimension is severely enlarged. 7. Right atrial chamber dimension is mildly enlarged. 8. There is moderate to severe mitral valve regurgitation. 9. There is mild tricuspid valve regurgitation. 10. Severe pulmonary hypertension, estimated pulmonary arterial systolic pressure is 72 mmHg. 11. There is mild pulmonic regurgitation. 12. Pleural effusion seen. (7) Pulmonary hypertension: Code(s): I27.20 - Pulmonary hypertension, unspecified Status: Acute Assessment and Plan: Severe pulmonary hypertension (8) Mitral regurgitation: Code(s): I34.0 - Nonrheumatic mitral (valve) insufficiency Status: Acute Assessment and Plan: Moderate to severe mitral valve regurg, will be cautious with IV fluids (9) SVT (supraventricular tachycardia): Code(s): I47.10 - Supraventricular tachycardia, unspecified Status: Acute Assessment and Plan: Patient presented with SVT, was cardioverted by EMS according the triage note, heart rates were in the 160s to 240s, with hemodynamic instability -patient does have a history of AFib RVR on Eliquis at home -will likely restart Eliquis (10) Acute kidney injury: Code(s): N17.9 - Acute kidney failure, unspecified Status: Acute Assessment and Plan: Acute kidney injury, likely septic shock, hypotension, ATN,, rhabdomyolysis -baseline creatinine is 0.50-0.80 -creatinine DC'd patient is 1.70 -received 1 L of IV fluid bolus in the ED, giving an additional IV fluid bolus of 1 L -monitor urine output, renal function electrolytes -will obtain urine lytes, renal ultrasound, urine eosinophils (11) Atrial fibrillation with rapid ventricular response: Code(s): I48.91 - Unspecified atrial fibrillation Status: Acute Assessment and Plan: On Eliquis at home, will continue -currently rate controlled in sinus rhythm -continue to monitor Plan DVT prophylaxis: Apixaban Stress ulcer prophylaxis: Protonix Nutrition: Will start tube feeds in a.m. Code Status: Full code Critical Care Time Spent: 53 minutes Discussed with patient's mother and sister in the ER and updated them with patient's condition and plan of care. I answered all the questions. Consent for central line was also obtained Due to a high probability of clinically significant, life threatening deterioration, the patient required my highest level of preparedness to intervene emergently and I personally spent this critical care time directly and personally managing the patient. This critical care time included obtaining a history; examining the patient; pulse oximetry; ordering and review of studies; arranging urgent treatment with development of a management plan; evaluation of patient's response to treatment; frequent reassessment; and discussions with other providers. It was exclusive of separately billable procedures and treating other patients and teaching time. Please see Assessment and Plan section and the rest of the note for further information on patient assessment and treatment This dictation may have been done utilizing a voice recognition system. Attempts have been made to correct errors. However, there may be uncorrected grammatical, spelling, and recognitions errors present. 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 He had breakfast and after that she found him laying on the floor, EMS was called patient was found to be in tachycardic, vomit on the patient and unresponsive, patient was bagged to the ER at [facility] we was intubated. Off note patient was cardioverted it by EMS for heart rates in the 240s 08/11: CT head with no acute intracranial abnormalities. Stable extensive left cerebellar encephalomalacia stable right ventriculostomy shunt catheter stable dilatation of the 4th ventricle postoperative changes with right calvarium. 08/11: CT scan of the chest/abdomen/pelvis showed left lower lobe consolidation and right basal atelectasis, no all or solid organ injury, no acute fracture. W EDC of 31.4, hemoglobin 30.2, platelets 276, INR 1.6 creatinine 1.59, BUN of 11, AST 72, ALT 31, T bili 1.0, total creatinine kinase of 1099, lipase was normal. UA was positive for nitrates, leukocyte esterase, WBC > 100, 4+ urine bacteria. Urine drug screen was negative, ETOH was negative. Influenza, RSV and SARS-CoV-2 PCR were negative Patient was seen and examined in the ER, as patient was hypotensive. Patient blood pressures were in the 60s, I asked the ER nurse to start norepinephrine via peripheral IV. Patient was transported to the ICU, I emergently placed a central line in the right IJ. patient is sedated with fentanyl and Versed infusion, intubated on CMV mode of ventilation, peep of 5, 40% FiO2. 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 The patient walks with a walker typically but has been in a wheelchair recently. Lifelong nonsmoker. He denies any alcohol marijuana or illicit drugs. The patient denies being on disability but is unemployed at this time Code status full code Smoking status: Never smoker Alcohol intake: unknown Substance use: unknown Substance use type: does not use Lack of Transportation: No Lack of Food: Never True Current Housing: I Have Housing Concerned About Future Housing: No Difficulty Paying Gas/Electric Bills: No Difficulty Paying for Meds: No Currently Unemployed: No Education: Trade/Vocational Certificate Difficulty w/ Childcare or Family Care: No Living arrangements: with family Gender identity (if verbalized by the patient): Male Spiritual care concerns: No Meds Home Medications and Allergies Home Medications ?Medication ?Instructions ?Recorded ?Confirmed ?Type adalimumab 40 mg/0.8 mL 40 mg subcut Q14D 03/19/19 06/15/24 History subcutaneous pen kit (Humira Pen) alendronate 70 mg tablet 70 mg PO WEEKLY 03/19/19 06/15/24 History folic acid 1 mg tablet 1 mg PO DAILY 03/19/19 06/15/24 History calcium carbonate (Calcium 500) 500 mg PO BID 03/25/19 06/15/24 History glucosamine-chondroitin 250 mg-200 2 tablet PO DAILY 03/25/19 06/15/24 History mg tablet (Osteo Bi-Flex) multivitamin,xi-qdqm-kzobkhku 1 tablet PO DAILY 03/25/19 06/15/24 History (Complete Multivitamin tablet) azathioprine 50 mg tablet (Imuran) 100 mg PO DAILY 06/06/20 06/15/24 History apixaban 5 mg tablet (Eliquis) 5 mg PO Q12HR 30 days #60 tabs 05/24/24 06/15/24 Rx digoxin 250 mcg (0.25 mg) tablet 250 mcg PO QAM 30 days #30 tabs 05/24/24 06/15/24 Rx (Digitek) empagliflozin 10 mg tablet 10 mg PO DAILY 30 days #30 tabs 05/24/24 06/15/24 Rx (Jardiance) furosemide 40 mg tablet 40 mg PO DAILY 30 days #30 tabs 05/24/24 06/15/24 Rx metoprolol succinate 100 mg 200 mg (2 x 100 mg) PO QAM 30 days 05/24/24 06/15/24 Rx tablet,extended release 24 hr #60 tabs (Toprol XL) sacubitril 24 mg-valsartan 26 mg 1 tab PO Q12HR 30 days #60 tabs 05/24/24 06/15/24 Rx tablet (Entresto) spironolactone 25 mg tablet 25 mg PO QAM 30 days #30 tabs 05/24/24 06/15/24 Rx tamsulosin 0.4 mg capsule 0.4 mg PO QAM 30 days #30 caps 05/24/24 06/15/24 Rx sulfasalazine 500 mg tablet 500 mg PO QID 90 days #360 tabs 07/29/24 Rx Allergies Allergy/AdvReac Type Severity Reaction Status Date / Time No Known Allergies Allergy Verified 06/15/24 10:58 Vital Signs Vital Signs - 24 hr 08/11/24 09:32 08/11/24 09:47 08/11/24 10:02 Temperature 102.6 F H 103.7 F H Pulse Rate 160 H 154 H Respiratory Rate 26 H 21 H Blood Pressure 203/140 H 231/197 H Pulse Oximetry 100 93 Oxygen Delivery Non-Rebreather Mask Oxygen Flow Rate 15 Fraction of Inspired Oxygen 08/11/24 10:03 08/11/24 10:05 08/11/24 10:18 Temperature 103.8 F H Pulse Rate 153 H 122 H Respiratory Rate 30 H 20 Blood Pressure Pulse Oximetry Oxygen Delivery Mechanical Ventilation Oxygen Flow Rate Fraction of Inspired Oxygen 08/11/24 10:18 08/11/24 10:22 08/11/24 10:34 Temperature 103.2 F H Pulse Rate 120 H 124 H Respiratory Rate 20 Blood Pressure Pulse Oximetry 98 Oxygen Delivery Mechanical Ventilation Oxygen Flow Rate Fraction of Inspired Oxygen 100 08/11/24 10:37 08/11/24 10:37 08/11/24 10:38 Temperature Pulse Rate 123 H 118 H 123 H Respiratory Rate 20 20 20 Blood Pressure Pulse Oximetry Oxygen Delivery Oxygen Flow Rate Fraction of Inspired Oxygen 08/11/24 10:40 08/11/24 10:49 08/11/24 10:50 Temperature 103 F H Pulse Rate 119 H 124 H 120 H Respiratory Rate 24 H 19 17 Blood Pressure 68/54 L Pulse Oximetry Oxygen Delivery Oxygen Flow Rate Fraction of Inspired Oxygen 08/11/24 10:50 08/11/24 10:51 08/11/24 11:00 Temperature 102.7 F H 103 F H Pulse Rate 125 H 122 H Respiratory Rate 19 20 Blood Pressure 87/60 L Pulse Oximetry 100 Oxygen Delivery Oxygen Flow Rate Fraction of Inspired Oxygen 08/11/24 11:00 08/11/24 11:00 08/11/24 11:50 Temperature 102.5 F H 102 F H Pulse Rate 122 H 122 H 101 H Respiratory Rate 20 19 13 Blood Pressure 70/46 L 63/41 L Pulse Oximetry 100 100 Oxygen Delivery Oxygen Flow Rate Fraction of Inspired Oxygen 08/11/24 12:00 08/11/24 12:10 08/11/24 12:20 Temperature 102 F H 102 F H 102 F H Pulse Rate 96 93 96 Respiratory Rate 15 13 12 Blood Pressure 52/41 L 61/43 L 66/49 L Pulse Oximetry 100 100 100 Oxygen Delivery Oxygen Flow Rate Fraction of Inspired Oxygen 08/11/24 12:30 08/11/24 12:40 08/11/24 12:50 Temperature 101 F H 93 F L Pulse Rate 94 93 93 Respiratory Rate 12 13 Blood Pressure 63/49 L 64/49 L 64/49 L Pulse Oximetry 100 100 Oxygen Delivery Oxygen Flow Rate Fraction of Inspired Oxygen 08/11/24 12:50 08/11/24 13:16 08/11/24 13:17 Temperature 101 F H 100.9 F H 100.9 F H Pulse Rate 93 94 95 Respiratory Rate 12 12 12 Blood Pressure 60/50 L 78/60 L Pulse Oximetry 100 100 100 Oxygen Delivery Oxygen Flow Rate Fraction of Inspired Oxygen Exam 2 Narrative: General: Patient intubated sedated, in no acute distress HEENT:? Pupils equal and reactive, sclera is clear, ETT in place Neck:? Supple Respiratory:? Coarse breath sounds bilaterally especially at bases, otherwise no wheezing, adequate air entry and clear to auscultation Cardiac:? S1-S2 normal, regular rate and rhythm Abdomen:? Soft, nontender, nondistended, hypoactive bowel sound Extremities:? Trace edema, palpable pedal pulses Neuro:? Patient is intubated, sedated, does not open his eyes or follow simple commands at this time Skin:? Warm and diaphoretic Psych:? Unable to assess at this time Results Labs 08/11/24 10:54 08/11/24 11:15 Labs: Short CBC 08/11/24 Range/Units 10:54 WBC 31.4 H (4.5-10.0) K/mm3 Hgb 13.2 L (14.0-18.0) g/dL Hct 39.5 L (42.0-52.0) % Plt Count 276 (150-375) k/mm3 BMP 08/11/24 11:15 Creatinine 1.70 H Urine 08/11/24 Range/Units 10:54 Urine Color Yellow (Yellow) Urine Appearance Cloudy H (Clear) Urine pH 7.5 (5.0-9.0) Ur Specific [place] 1.013 (1.001-1.035) Urine Protein 3+ H (Negative) mg/dL Urine Glucose (UA) 2+ H (Negative) mg/dL Quality VTE Prophylaxis VTE prophylaxis: pharmacologic ordered Hospitalist MIPS Advance Care Plan I have confirmed that the patient's Advanced Care Plan is present, code status is documented, or surrogate decision maker is listed in patient medical record.: Yes Medication Reconciliation I have utilized all available resources to obtain, update and review the patients current medications (includes all prescriptions, OTC, herbals, cannabis, and nutritional supplements).: Yes
[2024-08-11 13:57] LABS: Creatine Kinase 1099 U/L (55-170)
[2024-08-11 14:00] LABS: Alanine Aminotransferase 31 U/L (6-50); Albumin Level 3.2 g/dL (3.5-5.1); Alkaline Phosphatase 90 U/L (38-126); Anion Gap 8 mmol/L (4-12); Aspartate Amino Transferase 72 U/L (17-59); Blood Urea Nitrogen 11 mg/dL (9-20); Calcium 8.3 mg/dL (8.4-10.2); Carbon Dioxide 25 mmol/L (22-30); Chloride 101 mmol/L (98-107); Estimated CRCL calculation 54 ml/min; Estimated Glomerular Filt Rate 47; Glucose 121 mg/dL (65-110); Lipase 81 U/L (23-300); Potassium 3.5 mmol/L (3.4-5.0); Sodium 134 mmol/L (137-145)
[2024-08-11 14:02] LABS: Ethanol < 10 mg/dL (<10)
[2024-08-11 14:03] LABS: Triglycerides 73 mg/dL (<150)
[2024-08-11 14:09] LABS: Phosphorus 1.4 mg/dL (2.5-4.5)
[2024-08-11 14:11] LABS: Digoxin < 0.5 ng/mL (0.8-2.0)
[2024-08-11 14:19] LABS: NT Pro B Type Natriuretic Pept 2310 pg/mL (19.9-100); Troponin I 0.354 ng/mL (0.000-0.034)
[2024-08-11] MEDS: CEFEPIME 2 GM/NS 50 ML 2 GM/50 ML BAG IVPB ×2 (14:23→23:58)
[2024-08-11 14:30] LABS: Procalcitonin > 100.0 ng/mL
[2024-08-11] MEDS: CENTRAL LINE FLUSH 10 ML IV PUSH ×2 (14:31→21:36)
[2024-08-11] MEDS: VASOPRESSIN INJ 100 UNITS in DEXTROSE 5% 95 ML IV CONT (14:32)
[2024-08-11] MEDS: PANTOPRAZOLE SODIUM IV 40 MG VIAL IV PUSH (14:33)
[2024-08-11] MEDS: HYDROCORTISONE SODIUM SUCCINATE 100 MG/2 ML VIAL IV PUSH ×2 (14:36→21:27)
[2024-08-11 14:44] LABS: MRSA (PCR) NOT DETECTED (NOT DETECTE)
[2024-08-11] MEDS: DOXYCYCLINE 100 MG/NS 100 ML 100 MG/100 ML BAG IVPB (15:01)
[2024-08-11] MEDS: IPRATROPIUM 0.5 MG/ALBUTEROL SULFATE 2.5 MG AMPUL.NEB 3 ML INHALATION ×2 (15:17→20:02)
[2024-08-11 15:26] LABS: Lactic Acid Reflex 1.9 mmol/L (0.7-2.0)
[2024-08-11] MEDS: metroNIDAZOLE 500 MG/ISO 100ML 500 MG/100 ML BAG 100 MG IVPB ×3 (15:34→23:58)
[2024-08-11] MEDS: SODIUM CHLORIDE 0.9% IV 1,000 ML 125 ML IV CONT (15:34)
[2024-08-11] MEDS: ALBUMIN HUMAN 25% 25 GM/100 ML 100 ML IVPB ×2 (16:27→21:25)
[2024-08-11] MEDS: VANCOMYCIN 2,000 MG/NS 500 ML 2,000 MG/500 ML BAG 250 MG IVPB (16:27)
[2024-08-11 16:34] LABS: Glucose Point of Care 109 mg/dl (65-105)
[2024-08-11] MEDS: PHENYLEPHRINE HCL INJ 50 MG in SODIUM CHLORIDE 0.9% IV 245 ML 12 ML IV CONT (16:41)
[2024-08-11] MEDS: POTASSIUM/PHOSPHORUS/SODIUM 1.5 GM PACKET 1 PACKET PO (16:58)
[2024-08-11 17:14] LABS: Toxigenic C. Diff NEGATIVE (NEGATIVE)
[2024-08-11] MEDS: NOREPINEPHRINE 8 MG/D5W 250 ML 8 MG/250 ML BAG 56.25 MG IV CONT (17:20)
[2024-08-11 17:44] LABS: Troponin I 0.233 ng/mL (0.000-0.034)
[2024-08-11 17:51] LABS: Eosinophil Urine None Seen % (None Seen); Urine Eos QC 2nd Tech Confirmed
[2024-08-11 18:01] LABS: Glucose Point of Care 128 mg/dl (65-105)
[2024-08-11] MEDS: APIXABAN 5 MG TABLET PO (21:28)
[2024-08-11] MEDS: NOREPINEPHRINE 8 MG/D5W 250 ML 8 MG/250 ML BAG 37.5 MG IV CONT (22:15)
[2024-08-12] VITALS (61 sets, daily range): BP systolic 95–125; BP diastolic 54–80; PULSE 59–98; RESP 12–23; TEMP 35.9–36.8; O2SAT 94–100; BMI 26.4
[2024-08-12] MEDS: SODIUM CHLORIDE 0.9% IV 1,000 ML 125 ML IV CONT ×4 (00:02→23:54)
[2024-08-12 01:01] LABS: Glucose Point of Care 115 mg/dl (65-105)
[2024-08-12] MEDS: IPRATROPIUM 0.5 MG/ALBUTEROL SULFATE 2.5 MG AMPUL.NEB 3 ML INHALATION ×4 (01:08→19:37)
--- NOTE | 2024-08-12 02:09 | PCRCNOTE ---
Daily ABG order wrong time start time 0500 not 0216
[2024-08-12] MEDS: DOXYCYCLINE 100 MG/NS 100 ML 100 MG/100 ML BAG IVPB ×2 (02:20→14:10)
[2024-08-12 04:45] LABS: Alveolar/Arterial O2 Gradient 80.5 mmHg; Base Excess ABG -4.9 mEq/l (+/-2.0); Fractional Inspired Oxygen 40 %; HCO3 ABG 20.4 mEq/l (22.0-26.0); Oxygen Content ABG 17.5 %vol (16.0-22.0); Oxyhemoglobin 98.8 % THb (90.0-100.0); PCO2 ABG 38.8 mmHg (35.0-45.0); PO2 ABG 160.1 mmHg (80.0-100.0); Total Hemoglobin 12.4 g/dL (12.0-18.0); pH ABG 7.339 (7.350-7.450)
[2024-08-12 04:45] LABS: Hematocrit 35.5 % (42.0-52.0); Hemoglobin 11.6 g/dL (14.0-18.0); Mean Corpuscular HGB Conc 32.7 g/dl (32-36); Mean Corpuscular Hemoglobin 31.4 pg (26-34); Mean Corpuscular Volume 96.2 fl (80-100); Mean Platelet Volume 10.1 fl (7.4-10.4); Platelet Count Result 198 k/mm3 (150-375); Red Blood Count 3.69 M/mm3 (4.6-6.20); Red Cell Distribution Width 14.6 % (11.5-14.5); White Blood Count 34.2 K/mm3 (4.5-10.0)
[2024-08-12 04:46] LABS: Device VENTILATOR; Modified Allen's Test Pass; Site Drawn RIGHT RADIAL
[2024-08-12 04:47] LABS: Arterial Blood Gas PEEP 5 cmH2O; Arterial Blood Gas Tidal Volume 500 ml; Arterial Blood Gas Vent Mode CMV; Arterial Blood Gas Ventilator rate 12 /MIN
[2024-08-12 04:57] LABS: Alanine Aminotransferase 38 U/L (6-50); Albumin Level 3.5 g/dL (3.5-5.1); Alkaline Phosphatase 67 U/L (38-126); Anion Gap 9 mmol/L (4-12); Aspartate Amino Transferase 88 U/L (17-59); Bilirubin,Total 0.7 mg/dL (0.2-1.3); Blood Urea Nitrogen 13 mg/dL (9-20); Calcium 7.4 mg/dL (8.4-10.2); Carbon Dioxide 22 mmol/L (22-30); Chloride 106 mmol/L (98-107); Estimated CRCL calculation 90 ml/min; Estimated Glomerular Filt Rate > 60; Glucose 116 mg/dL (65-110); Magnesium 1.8 mg/dL (1.6-2.3); Phosphorus 4.3 mg/dL (2.5-4.5); Potassium 4.2 mmol/L (3.4-5.0); Sodium 137 mmol/L (137-145)
[2024-08-12 05:06] LABS: Band Neutrophils Percent 9 % (0-6); Lymphocytes Absolute Manual 2.39 K/mm3 (1.1-4.5); Monocytes Absolute Manual 1.36 K/mm3 (0.1-0.90); Monocytes Percent Manual 4 % (3-9); Neutrophils Absolute Manual 30.43 K/mm3 (1.3-6.7); Neutrophils Percent Manual 80 % (46-73); Platelet Estimate Adequate (Adequate); Total Cells Counted 100
[2024-08-12 05:07] LABS: Large Platelets Present; Schistocytes None Seen
[2024-08-12] MEDS: CENTRAL LINE FLUSH 10 ML IV PUSH ×3 (05:09→21:15)
[2024-08-12] MEDS: HYDROCORTISONE SODIUM SUCCINATE 100 MG/2 ML VIAL IV PUSH ×3 (05:09→21:15)
[2024-08-12] MEDS: metroNIDAZOLE 500 MG/ISO 100ML 500 MG/100 ML BAG 100 MG IVPB (05:09)
[2024-08-12] MEDS: ALBUMIN HUMAN 25% 25 GM/100 ML 100 ML IVPB ×4 (05:09→21:14)
[2024-08-12 05:13] LABS: Troponin I 0.114 ng/mL (0.000-0.034)
[2024-08-12 08:27] LABS: Sodium Urine Random 57 meq/L
[2024-08-12] MEDS: PANTOPRAZOLE SODIUM IV 40 MG VIAL IV PUSH (08:48)
[2024-08-12] MEDS: APIXABAN 5 MG TABLET PO ×2 (08:48→20:15)
--- NOTE | 2024-08-12 09:26 | P.PNINT_ITS ---
Progress Note: A&P Assessment and Plan (1) Septic shock: Code(s): A41.9 - Sepsis, unspecified organism; R65.21 - Severe sepsis with septic shock Status: Acute Assessment and Plan: 08/11: Patient admitted with SVT, status post cardioversion by EMS. Was found down at home, with vomit on himself, respiratory distress, -patient was found to be hypotensive, likely related to septic shock, SVT, aspiration pneumonia, UTI -patient was given 1 L IV fluid bolus in the ER, will give additional IV fluid bolus in the ICU given history of cardiomyopathy with EF of 35-40% -patient Levophed, maintain MAP > 65 mmHg -off Vinod-Synephrine and basal -continue stress dose steroids stress dose steroids -08/11: Blood cultures growing Gram-negative bacilli 03/18 bottles -08/11: Urine cultures pending -08/11: Sputum cultures pending -continue cefepime, vancomycin, Flagyl, doxycycline (08/11) -acute renal failure with improvement in creatinine urine output, continue to monitor (2) Acute respiratory failure: Code(s): J96.00 - Acute respiratory failure, unspecified whether with hypoxia or hypercapnia Status: Acute Assessment and Plan: Acute respiratory failure could be related to SVT, hypotension, septic shock, aspiration pneumonia, UTI -08/11: was intubated in the ED -remains on CMV mode of ventilation, peep of 5, 40% FiO2 -chest x-ray and ABGs reviewed, ventilator adjusted, wean FiO2 to maintain O2 sats> 92% -sedated with fentanyl and Versed infusion, maintain RASS of 0 to -2 -daily SBT and SAT -continue DuoNeb (3) Acute alteration in mental status: Code(s): R41.82 - Altered mental status, unspecified Status: Acute Assessment and Plan: Likely related to hypotension, SVT, infection -will treat underlying cause -CT scan of the brain did not show any acute intracranial abnormality -08/12: Patient more alert and awake this morning and follows simple commands and nods to questions (4) Pneumonia: Code(s): J18.9 - Pneumonia, unspecified organism Status: Acute Assessment and Plan: Pneumonia as seen on CT scan of the chest abdomen pelvis -antibiotics as above -patient was negative from influenza, RSV and SARS-CoV-2 PCR 08/11: CT scan of the chest/abdomen/pelvis showed left lower lobe consolidation and right basal atelectasis, no all or solid organ injury, no acute fracture. (5) UTI (urinary tract infection): Qualifiers: Urinary tract infection type: acute cystitis Hematuria presence: without hematuria Qualified Code(s): N30.00 - Acute cystitis without hematuria Code(s): N39.0 - Urinary tract infection, site not specified Status: Acute Assessment and Plan: UA was reflective of UTI -patient has a history of UTI with Pseudomonas (05/16/2024) which was resistant to fluoroquinolones -continue antibiotics as above -urine cultures pending (6) Systolic heart failure: Qualifiers: Heart failure chronicity: chronic Qualified Code(s): I50.22 - Chronic systolic (congestive) heart failure Code(s): I50.20 - Unspecified systolic (congestive) heart failure Status: Chronic Assessment and Plan: Patient with systolic heart failure with a EF of 35-40% Patient has been on GDMT, will hold for now as patient on pressors Will be cautious with IV fluids 05/15/2024: Echocardiogram Summary 1. Complete two-dimensional, color flow and Doppler transthoracic echocardiogram is performed. 2. Left ventricular chamber dimension is mildly enlarged. 3. Left ventricular systolic function is moderately reduced, estimated at 35-40%. 4. There is mildly increased left ventricular wall thickness. 5. The left ventricular diastolic function is abnormal. 6. Left atrial chamber dimension is severely enlarged. 7. Right atrial chamber dimension is mildly enlarged. 8. There is moderate to severe mitral valve regurgitation. 9. There is mild tricuspid valve regurgitation. 10. Severe pulmonary hypertension, estimated pulmonary arterial systolic pressure is 72 mmHg. 11. There is mild pulmonic regurgitation. 12. Pleural effusion seen. (7) Pulmonary hypertension: Code(s): I27.20 - Pulmonary hypertension, unspecified Status: Acute Assessment and Plan: Severe pulmonary hypertension (8) Mitral regurgitation: Code(s): I34.0 - Nonrheumatic mitral (valve) insufficiency Status: Acute Assessment and Plan: Moderate to severe mitral valve regurg, will be cautious with IV fluids (9) SVT (supraventricular tachycardia): Code(s): I47.10 - Supraventricular tachycardia, unspecified Status: Acute Assessment and Plan: Patient presented with SVT, was cardioverted by EMS according the triage note, heart rates were in the 160s to 240s, with hemodynamic instability -patient does have a history of AFib RVR on Eliquis at home -restarted Eliquis on admission (10) Acute kidney injury: Code(s): N17.9 - Acute kidney failure, unspecified Status: Acute Assessment and Plan: Acute kidney injury, likely septic shock, hypotension, ATN,, rhabdomyolysis -baseline creatinine is 0.50-0.80 -creatinine this admission is 1.70 -patient has received adequate amount of IV fluids -monitor urine output, renal function electrolytes -urine lytes did not reveal pretibial picture - urine eosinophils were negative, CK levels were 1099 -028: Renal ultrasound: No hydronephrosis or renal calculi (11) Atrial fibrillation with rapid ventricular response: Code(s): I48.91 - Unspecified atrial fibrillation Status: Acute Assessment and Plan: On Eliquis at home, will continue -currently rate controlled in sinus rhythm -continue to monitor (12) Swollen L knee: Code(s): M25.462 - Effusion, left knee Status: Acute Assessment and Plan: Swelling of the left knee with bogginess, fluctuation, warmth, likely septic joint -discussed with orthopedics, liver likely do a bedside drainage or take the patient to the OR -continue antibiotics 08/11/2024: CT scan of the left knee IMPRESSION: Postoperative changes in the patella with destructive changes and fragmentation. multilocular abscess seen in the suprapatellar bursa. Synovitis seen in the left knee joint (13) Ankle fracture, left: Code(s): S82.892A - Other fracture of left lower leg, initial encounter for closed fracture Status: Acute Assessment and Plan: Left ankle swelling X-ray of the left ankle showed fracture of the lateral malleolus Orthopedics following, weight recommendation Plan DVT prophylaxis: Apixaban Stress ulcer prophylaxis: Protonix Nutrition: Hold tube feeds. Code Status: Full code Critical Care Time Spent: 38 minutes Due to a high probability of clinically significant, life threatening deterioration, the patient required my highest level of preparedness to intervene emergently and I personally spent this critical care time directly and personally managing the patient. This critical care time included obtaining a history; examining the patient; pulse oximetry; ordering and review of studies; arranging urgent treatment with development of a management plan; evaluation of patient's response to treatment; frequent reassessment; and discussions with other providers. It was exclusive of separately billable procedures and treating other patients and teaching time. Please see Assessment and Plan section and the rest of the note for further information on patient assessment and treatment This dictation may have been done utilizing a voice recognition system. Attempts have been made to correct errors. However, there may be uncorrected grammatical, spelling, and recognitions errors present. Subjective Date/time seen: 08/12/24 09:26 Interval history: Reason for consult: Acute respiratory failure, septic shock, pneumonia, SVT, fall, altered mental status, left ankle fracture, left knee swelling 08/13/2023: Patient seen and examined the ICU, remains intubated on CMV mode of ventilation, peep of 5, 40% FiO2. Sedated with fentanyl Versed infusion, patient opens his eyes to name, follows simple commands and nods to questions. Currently on norepinephrine at 8 mcg/min. Off vasopressin and phenylephrine Review of Systems Review of Systems: ROS unobtainable: Yes unobtainable due to endotracheal tube, unobtainable due to medical condition and unobtainable due to mental status Exam Narrative: General: Patient intubated, sedated, in no acute distress HEENT:? Pupils equal and reactive, sclera is clear, ETT in place Neck:? Supple Respiratory:? Coarse breath sounds bilaterally especially at bases, otherwise no wheezing, adequate air entry and clear to auscultation Cardiac:? S1-S2 normal, regular rate and rhythm Abdomen:? Soft, nontender, nondistended, hypoactive bowel sounds Extremities:? Left knee boggy with fluctuation, swollen, ecchymotic, warm. Left ankle swollen and warm Neuro:? Patient is intubated, sedated, patient opens eyes to name, follows simple commands in all extremities, nods to question Skin:? Will warm and dry Psych:? Unable to assess at this time Objective Data Vital Signs Vital Signs: Vital Signs - 24 hr 08/11/24 09:32 08/11/24 09:47 08/11/24 10:02 Temperature 102.6 F H 103.7 F H Pulse Rate 160 H 154 H Respiratory Rate 26 H 21 H Blood Pressure 203/140 H 231/197 H Pulse Oximetry 100 93 Oxygen Delivery Non-Rebreather Mask Oxygen Flow Rate 15 Fraction of Inspired Oxygen 08/11/24 10:03 08/11/24 10:05 08/11/24 10:18 Temperature 103.8 F H Pulse Rate 153 H 122 H Respiratory Rate 30 H 20 Blood Pressure Pulse Oximetry Oxygen Delivery Mechanical Ventilation Oxygen Flow Rate Fraction of Inspired Oxygen 08/11/24 10:18 08/11/24 10:22 08/11/24 10:34 Temperature 103.2 F H Pulse Rate 120 H 124 H Respiratory Rate 20 Blood Pressure Pulse Oximetry 98 Oxygen Delivery Mechanical Ventilation Oxygen Flow Rate Fraction of Inspired Oxygen 100 08/11/24 10:37 08/11/24 10:37 08/11/24 10:38 Temperature Pulse Rate 123 H 118 H 123 H Respiratory Rate 20 20 20 Blood Pressure Pulse Oximetry Oxygen Delivery Oxygen Flow Rate Fraction of Inspired Oxygen 08/11/24 10:40 08/11/24 10:49 08/11/24 10:50 Temperature 103 F H Pulse Rate 119 H 124 H 120 H Respiratory Rate 24 H 19 17 Blood Pressure 68/54 L Pulse Oximetry Oxygen Delivery Oxygen Flow Rate Fraction of Inspired Oxygen 08/11/24 10:50 08/11/24 10:51 08/11/24 11:00 Temperature 102.7 F H 103 F H Pulse Rate 125 H 122 H Respiratory Rate 19 20 Blood Pressure 87/60 L Pulse Oximetry 100 Oxygen Delivery Oxygen Flow Rate Fraction of Inspired Oxygen 08/11/24 11:00 08/11/24 11:00 08/11/24 11:50 Temperature 102.5 F H 102 F H Pulse Rate 122 H 122 H 101 H Respiratory Rate 20 19 13 Blood Pressure 70/46 L 63/41 L Pulse Oximetry 100 100 Oxygen Delivery Oxygen Flow Rate Fraction of Inspired Oxygen 08/11/24 12:00 08/11/24 12:10 08/11/24 12:20 Temperature 102 F H 102 F H 102 F H Pulse Rate 96 93 96 Respiratory Rate 15 13 12 Blood Pressure 52/41 L 61/43 L 66/49 L Pulse Oximetry 100 100 100 Oxygen Delivery Oxygen Flow Rate Fraction of Inspired Oxygen 08/11/24 12:25 08/11/24 12:30 08/11/24 12:40 Temperature 101 F H 93 F L Pulse Rate 94 93 Respiratory Rate 12 13 Blood Pressure 63/49 L 64/49 L Pulse Oximetry 100 100 100 Oxygen Delivery Mechanical Ventilation Oxygen Flow Rate Fraction of Inspired Oxygen 40 08/11/24 12:50 08/11/24 12:50 08/11/24 13:16 Temperature 101 F H 100.9 F H Pulse Rate 93 93 94 Respiratory Rate 12 12 Blood Pressure 64/49 L 60/50 L Pulse Oximetry 100 100 Oxygen Delivery Oxygen Flow Rate Fraction of Inspired Oxygen 08/11/24 13:17 08/11/24 13:45 08/11/24 14:00 Temperature 100.9 F H Pulse Rate 95 93 96 Respiratory Rate 12 Blood Pressure 78/60 L 80/61 L Pulse Oximetry 100 Oxygen Delivery Oxygen Flow Rate Fraction of Inspired Oxygen 08/11/24 14:00 08/11/24 14:00 08/11/24 14:00 Temperature 101.1 F H Pulse Rate 93 123 H 123 H Respiratory Rate 12 24 H 24 H Blood Pressure 99/73 L Pulse Oximetry 100 Oxygen Delivery Oxygen Flow Rate Fraction of Inspired Oxygen 08/11/24 14:21 08/11/24 14:32 08/11/24 14:56 Temperature 101.2 F H Pulse Rate 123 H 95 85 Respiratory Rate 12 Blood Pressure 99/73 L 84/62 L 74/58 L Pulse Oximetry 100 Oxygen Delivery Oxygen Flow Rate Fraction of Inspired Oxygen 08/11/24 15:17 08/11/24 15:17 08/11/24 15:28 Temperature Pulse Rate 83 83 86 Respiratory Rate 12 12 Blood Pressure Pulse Oximetry 100 Oxygen Delivery Mechanical Ventilation Oxygen Flow Rate Fraction of Inspired Oxygen 40 08/11/24 16:00 08/11/24 16:00 08/11/24 16:00 Temperature 99.7 F H Pulse Rate 83 82 82 Respiratory Rate 12 14 Blood Pressure 91/68 L 81/54 L Pulse Oximetry 100 Oxygen Delivery Oxygen Flow Rate Fraction of Inspired Oxygen 08/11/24 16:00 08/11/24 16:00 08/11/24 16:00 Temperature Pulse Rate 82 82 82 Respiratory Rate 14 Blood Pressure 81/54 L Pulse Oximetry Oxygen Delivery Oxygen Flow Rate Fraction of Inspired Oxygen 08/11/24 16:00 08/11/24 16:41 08/11/24 17:20 Temperature Pulse Rate 82 88 75 Respiratory Rate 12 Blood Pressure 89/68 L 109/85 Pulse Oximetry 100 Oxygen Delivery Mechanical Ventilation Oxygen Flow Rate Fraction of Inspired Oxygen 40 08/11/24 17:20 08/11/24 17:50 08/11/24 18:00 Temperature Pulse Rate 75 75 73 Respiratory Rate Blood Pressure 109/85 Pulse Oximetry 100 Oxygen Delivery Mechanical Ventilation Oxygen Flow Rate Fraction of Inspired Oxygen 40 08/11/24 18:00 08/11/24 18:15 08/11/24 18:15 Temperature 98.4 F Pulse Rate 73 73 73 Respiratory Rate 12 12 Blood Pressure 117/90 113/97 H Pulse Oximetry 100 Oxygen Delivery Oxygen Flow Rate Fraction of Inspired Oxygen 08/11/24 18:16 08/11/24 18:16 08/11/24 18:17 Temperature Pulse Rate 73 73 73 Respiratory Rate 12 Blood Pressure 113/97 H 113/97 H Pulse Oximetry Oxygen Delivery Oxygen Flow Rate Fraction of Inspired Oxygen 08/11/24 19:00 08/11/24 19:21 08/11/24 19:30 Temperature 98.3 F Pulse Rate 72 72 71 Respiratory Rate 12 12 12 Blood Pressure 119/98 H Pulse Oximetry 100 Oxygen Delivery Oxygen Flow Rate Fraction of Inspired Oxygen 08/11/24 19:34 08/11/24 19:45 08/11/24 19:45 Temperature 98.4 F Pulse Rate 72 71 71 Respiratory Rate 12 Blood Pressure 119/98 H 115/95 H 115/95 H Pulse Oximetry 100 Oxygen Delivery Oxygen Flow Rate Fraction of Inspired Oxygen 08/11/24 19:50 08/11/24 19:54 08/11/24 20:00 Temperature Pulse Rate 72 74 73 Respiratory Rate 12 Blood Pressure 115/95 H 111/89 Pulse Oximetry Oxygen Delivery Oxygen Flow Rate Fraction of Inspired Oxygen 08/11/24 20:00 08/11/24 20:00 08/11/24 20:00 Temperature Pulse Rate 72 73 73 Respiratory Rate 12 12 Blood Pressure 111/89 Pulse Oximetry Oxygen Delivery Oxygen Flow Rate Fraction of Inspired Oxygen 08/11/24 20:00 08/11/24 20:00 08/11/24 20:00 Temperature 98.4 F Pulse Rate 73 73 Respiratory Rate 12 Blood Pressure 111/89 111/89 Pulse Oximetry 100 Oxygen Delivery Oxygen Flow Rate Fraction of Inspired Oxygen 40 08/11/24 20:00 08/11/24 20:00 08/11/24 20:02 Temperature Pulse Rate 71 71 Respiratory Rate 12 Blood Pressure Pulse Oximetry Oxygen Delivery Mechanical Ventilation Oxygen Flow Rate Fraction of Inspired Oxygen 40 08/11/24 20:04 08/11/24 20:15 08/11/24 20:15 Temperature 98.4 F Pulse Rate 73 72 73 Respiratory Rate 12 Blood Pressure 114/89 114/89 Pulse Oximetry 100 100 Oxygen Delivery Mechanical Ventilation Oxygen Flow Rate Fraction of Inspired Oxygen 40 08/11/24 20:30 08/11/24 20:30 08/11/24 20:45 Temperature 98.4 F Pulse Rate 72 72 74 Respiratory Rate 12 Blood Pressure 121/94 H 121/94 H 115/92 H Pulse Oximetry 100 Oxygen Delivery Oxygen Flow Rate Fraction of Inspired Oxygen 08/11/24 20:45 08/11/24 21:00 08/11/24 21:00 Temperature 98.4 F 98.4 F Pulse Rate 73 72 71 Respiratory Rate 11 L 12 Blood Pressure 115/92 H 118/92 H 118/92 H Pulse Oximetry 100 100 Oxygen Delivery Oxygen Flow Rate Fraction of Inspired Oxygen 08/11/24 21:15 08/11/24 21:15 08/11/24 21:24 Temperature 98.3 F Pulse Rate 72 71 72 Respiratory Rate 12 Blood Pressure 116/95 H 116/95 H 116/95 H Pulse Oximetry 100 Oxygen Delivery Oxygen Flow Rate Fraction of Inspired Oxygen 08/11/24 21:30 08/11/24 21:30 08/11/24 21:45 Temperature 98.4 F 98.3 F Pulse Rate 72 71 70 Respiratory Rate 12 12 Blood Pressure 113/91 H 113/91 H 111/83 Pulse Oximetry 100 100 Oxygen Delivery Oxygen Flow Rate Fraction of Inspired Oxygen 08/11/24 21:45 08/11/24 22:00 08/11/24 22:00 Temperature Pulse Rate 71 69 69 Respiratory Rate Blood Pressure 111/83 110/86 110/86 Pulse Oximetry Oxygen Delivery Oxygen Flow Rate Fraction of Inspired Oxygen 08/11/24 22:00 08/11/24 22:00 08/11/24 22:00 Temperature Pulse Rate 69 69 69 Respiratory Rate 12 12 Blood Pressure 110/86 Pulse Oximetry Oxygen Delivery Oxygen Flow Rate Fraction of Inspired Oxygen 08/11/24 22:00 08/11/24 22:15 08/11/24 22:15 Temperature Pulse Rate 70 68 68 Respiratory Rate Blood Pressure 109/87 109/87 Pulse Oximetry Oxygen Delivery Oxygen Flow Rate Fraction of Inspired Oxygen 08/11/24 22:15 08/11/24 22:30 08/11/24 22:30 Temperature Pulse Rate 68 67 67 Respiratory Rate Blood Pressure 109/87 110/86 110/86 Pulse Oximetry Oxygen Delivery Oxygen Flow Rate Fraction of Inspired Oxygen 08/11/24 22:45 08/11/24 22:45 08/11/24 22:47 Temperature Pulse Rate 67 68 66 Respiratory Rate 17 Blood Pressure 106/87 Pulse Oximetry 98 Oxygen Delivery Mechanical Ventilation Oxygen Flow Rate Fraction of Inspired Oxygen 40 08/11/24 23:30 08/11/24 23:45 08/12/24 00:00 Temperature Pulse Rate 68 69 68 Respiratory Rate 17 16 13 Blood Pressure Pulse Oximetry Oxygen Delivery Oxygen Flow Rate Fraction of Inspired Oxygen 08/12/24 00:00 08/12/24 00:00 08/12/24 00:00 Temperature Pulse Rate 68 68 68 Respiratory Rate 13 Blood Pressure 95/70 L 95/70 L Pulse Oximetry Oxygen Delivery Oxygen Flow Rate Fraction of Inspired Oxygen 08/12/24 00:00 08/12/24 00:00 08/12/24 00:00 Temperature Pulse Rate 68 Respiratory Rate Blood Pressure 95/70 L Pulse Oximetry Oxygen Delivery Mechanical Ventilation Oxygen Flow Rate Fraction of Inspired Oxygen 40 40 08/12/24 00:00 08/12/24 00:00 08/12/24 00:01 Temperature 97.8 F 97.8 F Pulse Rate 69 68 68 Respiratory Rate 16 17 Blood Pressure 95/70 L Pulse Oximetry 100 99 Oxygen Delivery Oxygen Flow Rate Fraction of Inspired Oxygen 08/12/24 00:15 08/12/24 00:30 08/12/24 00:45 Temperature 97.7 F 97.7 F 97.6 F Pulse Rate 68 67 68 Respiratory Rate 15 12 12 Blood Pressure 98/69 L 99/71 L 102/73 Pulse Oximetry 99 99 99 Oxygen Delivery Oxygen Flow Rate Fraction of Inspired Oxygen 08/12/24 01:00 08/12/24 01:09 08/12/24 01:10 Temperature 97.6 F Pulse Rate 64 66 66 Respiratory Rate 12 12 Blood Pressure 105/75 Pulse Oximetry 99 99 Oxygen Delivery Mechanical Ventilation Oxygen Flow Rate Fraction of Inspired Oxygen 40 08/12/24 01:30 08/12/24 01:30 08/12/24 01:45 Temperature Pulse Rate 68 68 67 Respiratory Rate 12 Blood Pressure 114/78 114/78 111/76 Pulse Oximetry 99 Oxygen Delivery Oxygen Flow Rate Fraction of Inspired Oxygen 08/12/24 01:45 08/12/24 02:00 08/12/24 02:00 Temperature Pulse Rate 67 66 66 Respiratory Rate 12 12 Blood Pressure 111/76 108/76 Pulse Oximetry 99 Oxygen Delivery Oxygen Flow Rate Fraction of Inspired Oxygen 08/12/24 02:00 08/12/24 02:00 08/12/24 02:00 Temperature Pulse Rate 66 66 66 Respiratory Rate 12 Blood Pressure 108/76 108/76 Pulse Oximetry Oxygen Delivery Oxygen Flow Rate Fraction of Inspired Oxygen 08/12/24 02:00 08/12/24 02:00 08/12/24 02:15 Temperature 97.6 F Pulse Rate 67 67 68 Respiratory Rate 12 Blood Pressure 108/76 99/66 L Pulse Oximetry 99 Oxygen Delivery Oxygen Flow Rate Fraction of Inspired Oxygen 08/12/24 02:15 08/12/24 02:30 08/12/24 02:30 Temperature 97.6 F 97.5 F L Pulse Rate 68 67 67 Respiratory Rate 12 12 Blood Pressure 99/66 L 97/66 L 97/66 L Pulse Oximetry 100 100 Oxygen Delivery Oxygen Flow Rate Fraction of Inspired Oxygen 08/12/24 02:45 08/12/24 02:45 08/12/24 03:00 Temperature 97.4 F L Pulse Rate 66 66 63 Respiratory Rate 12 Blood Pressure 99/66 L 99/66 L 98/69 L Pulse Oximetry 100 Oxygen Delivery Oxygen Flow Rate Fraction of Inspired Oxygen 08/12/24 03:03 08/12/24 04:00 08/12/24 04:00 Temperature Pulse Rate 65 Respiratory Rate 12 Blood Pressure 98/69 L Pulse Oximetry 99 Oxygen Delivery Mechanical Ventilation Oxygen Flow Rate Fraction of Inspired Oxygen 40 40 08/12/24 04:00 08/12/24 04:00 08/12/24 04:00 Temperature Pulse Rate 61 61 61 Respiratory Rate 12 12 Blood Pressure 105/77 Pulse Oximetry Oxygen Delivery Oxygen Flow Rate Fraction of Inspired Oxygen 08/12/24 04:00 08/12/24 04:00 08/12/24 04:00 Temperature 97.3 F L Pulse Rate 61 61 61 Respiratory Rate 12 Blood Pressure 105/77 105/77 105/77 Pulse Oximetry 98 Oxygen Delivery Oxygen Flow Rate Fraction of Inspired Oxygen 08/12/24 04:00 08/12/24 04:50 08/12/24 05:00 Temperature Pulse Rate 59 L 60 66 Respiratory Rate Blood Pressure 114/76 Pulse Oximetry 98 Oxygen Delivery Mechanical Ventilation Oxygen Flow Rate Fraction of Inspired Oxygen 40 08/12/24 05:00 08/12/24 05:15 08/12/24 05:30 Temperature 97.4 F L 97.4 F L 97.3 F L Pulse Rate 66 70 69 Respiratory Rate 12 12 12 Blood Pressure 114/76 105/65 104/65 Pulse Oximetry 98 98 100 Oxygen Delivery Oxygen Flow Rate Fraction of Inspired Oxygen 08/12/24 05:45 08/12/24 06:00 08/12/24 06:00 Temperature 97.2 F L Pulse Rate 67 69 69 Respiratory Rate 12 12 Blood Pressure 105/69 113/70 Pulse Oximetry 100 Oxygen Delivery Oxygen Flow Rate Fraction of Inspired Oxygen 08/12/24 06:00 08/12/24 06:00 08/12/24 06:00 Temperature Pulse Rate 69 69 69 Respiratory Rate 12 Blood Pressure 113/70 113/70 Pulse Oximetry Oxygen Delivery Oxygen Flow Rate Fraction of Inspired Oxygen 08/12/24 06:00 08/12/24 06:00 08/12/24 06:15 Temperature 97.1 F L 97 F L Pulse Rate 69 69 70 Respiratory Rate 12 12 Blood Pressure 113/70 107/66 Pulse Oximetry 99 99 Oxygen Delivery Oxygen Flow Rate Fraction of Inspired Oxygen 08/12/24 06:30 08/12/24 06:30 08/12/24 06:45 Temperature 96.9 F L 96.7 F L Pulse Rate 72 69 71 Respiratory Rate 12 12 Blood Pressure 109/68 109/68 105/64 Pulse Oximetry 99 99 Oxygen Delivery Oxygen Flow Rate Fraction of Inspired Oxygen 08/12/24 07:00 08/12/24 08:00 08/12/24 08:00 Temperature 96.6 F L 96.7 F L Pulse Rate 69 69 62 Respiratory Rate 23 H 23 H 14 Blood Pressure 107/68 103/70 Pulse Oximetry 99 99 99 Oxygen Delivery Mechanical Ventilation Oxygen Flow Rate Fraction of Inspired Oxygen 40 08/12/24 08:00 08/12/24 08:00 08/12/24 08:00 Temperature Pulse Rate 62 73 Respiratory Rate Blood Pressure 103/70 Pulse Oximetry Oxygen Delivery Oxygen Flow Rate Fraction of Inspired Oxygen 35 08/12/24 08:08 08/12/24 08:16 Temperature Pulse Rate 74 62 Respiratory Rate 14 Blood Pressure Pulse Oximetry 99 Oxygen Delivery Mechanical Ventilation Oxygen Flow Rate Fraction of Inspired Oxygen 35 Intake/Output Intake/Output: Intake & Output 08/09/24 08/10/24 08/11/24 08/12/24 23:59 23:59 23:59 23:59 Intake Total 4698.0 2728.4 Output Total 500 1400 Balance 4198.0 1328.4 Meds/Results Medications: Active Medications Generic Name Dose Route Start Last Admin Trade Name Freq PRN Reason Stop Dose Admin Acetaminophen 650 mg 08/11/24 12:28 Acetaminophen 650 Mg Suppository RECTAL Q6H PRN Mild Pain (1-3) or Fever Albuterol/Ipratropium 3 ml 08/11/24 14:15 08/12/24 08:16 Ipratropium 0.5 Mg/Albuterol Sulfate 2.5 Mg Ampul.Neb 3 Ml INHALATION 3 ml Q6HRT DAKSHA Administration Apixaban 5 mg 08/11/24 21:00 08/12/24 08:48 Apixaban 5 Mg Tablet PO 5 mg Q12HR DAKSHA Administration Dextrose 12.5 gm 08/11/24 14:25 Dextrose 50% 25 Gm/50 Ml Syringe IV PUSH PRN PRN Hypoglycemia Protocol Glucagon 1 mg 08/11/24 14:25 Glucagon For Inj 1 Mg Vial IM PRN PRN Hypoglycemia Protocol Glucose 15 gm 08/11/24 14:25 Glucose Oral Gel 15 Gm Of Glucse In 37.5 Gm Tube PO PRN PRN Hypoglycemia Protocol Hydrocortisone Sodium Succinate 100 mg 08/11/24 14:00 08/12/24 05:09 Hydrocortisone Sodium Succinate 100 Mg/2 Ml Vial IV PUSH 100 mg Q8HR DAKSHA Administration Midazolam HCl 100 mg in 100 mls @ 1 mls/hr 08/11/24 10:15 08/12/24 06:00 Versed 100 Mg/Ns 100 Ml IV CONT 1 mg/hr .Q72H DAKSHA 1 mls/hr Titration Protocol 1 MG/HR Fentanyl Citrate 2,500 mcg in 250 mls @ 2.5 mls/hr 08/11/24 10:15 08/12/24 06:00 Fentanyl 2,500 Mcg/Ns 250 Ml IV CONT 50 mcg/hr .Q72H DAKSHA 5 mls/hr Titration Protocol 25 MCG/HR Cefepime HCl 2 gm in 50 mls @ 100 mls/hr 08/12/24 00:00 08/12/24 00:28 Maxipime 2 Gm/Ns 50 Ml IVPB Infused Q12H DAKSHA Infusion Sodium Chloride 1,000 mls @ 125 mls/hr 08/11/24 12:30 08/12/24 08:47 Normal Saline Iv IV CONT 125 mls/hr .Q8H DAKSHA Administration Doxycycline Hyclate 100 mg in 100 mls @ 100 mls/hr 08/11/24 14:00 08/12/24 03:20 Vibramycin 100 Mg/Ns 100 Ml IVPB Infused Q12H DAKSHA Infusion Norepinephrine Bitartrate 8 mg in 250 mls @ 15 mls/hr 08/11/24 12:50 08/12/24 08:00 Levophed 8 Mg/D5w 250 Ml IV CONT Infused .[id number] DAKSHA Titration Protocol 8 MCG/MIN Vancomycin HCl 1,250 mg in 250 mls @ 166.667 mls/hr 08/12/24 14:00 Vancomycin 1,250 Mg/Ns 250 Ml IVPB Q24H DAKSHA Metronidazole 500 mg in 100 mls @ 100 mls/hr 08/11/24 14:50 08/12/24 06:09 Flagyl 500 Mg/Iso Soln 100 Ml IVPB Infused Q6HR DAKSHA Infusion Vasopressin 100 units/ 100 mls @ 0 mls/hr 08/11/24 13:45 08/12/24 06:00 Dextrose IV CONT 0 units/min .Q0M DAKSHA 0 mls/hr Titration Protocol 0 UNITS/MIN Dextrose 1,000 mls @ 100 mls/hr 08/11/24 14:25 Dextrose 5% 1,000 Ml IVPB PRN PRN Hypoglycemia Protocol Phenylephrine HCl 50 mg/ 250 mls @ 0 mls/hr 08/11/24 15:35 08/12/24 06:00 Sodium Chloride IV CONT 0 mcg/min .Q0M DAKSHA 0 mls/hr Titration Protocol 0 MCG/MIN Albumin Human 100 mls @ 60 mls/hr 08/11/24 16:00 08/12/24 06:50 Albutein IVPB Infused Q6H DAKSHA Infusion Pantoprazole Sodium 40 mg 08/11/24 14:05 08/12/24 08:48 Pantoprazole Sodium Iv 40 Mg Vial IV PUSH 40 mg QAM DAKSHA Administration Sodium Chloride 10 ml 08/11/24 14:00 08/12/24 05:09 Central Line Flush IV PUSH 10 ml Q8HR DAKSHA Administration Sodium Chloride 20 ml 08/11/24 13:52 Central Line Flush IV PUSH PRN PRN after blood draws Radiology Results: ITS Impressions Head CT 08/11/24 11:35 Impression: No acute abnormality. Chronic findings, as detailed above. Chest/Abdomen/Pelvis CT 08/11/24 11:39 IMPRESSION: Left lower lobe consolidation and right basilar atelectasis. No hollow or solid organ injury. No acute fractures. Venous Doppler Study 08/11/24 15:11 IMPRESSION: 1: No lower extremity deep venous thrombosis. Renal Ultrasound 08/11/24 15:22 IMPRESSION: No hydronephrosis or renal calculi. Examination is unchanged from CT study performed 3 hours earlier Ankle X-Ray 08/11/24 18:33 IMPRESSION: Fracture of the lateral malleolus. Knee CT 08/11/24 19:16 IMPRESSION: Postoperative changes in the patella with destructive changes and fragmentation. multilocular abscess seen in the suprapatellar bursa. Synovitis seen in the left knee joint. was notified with the result of the patient at 7:35 PM on August 11, 2024. Chest X-Ray 08/12/24 06:09 Impression: Support tubes, as above. Mild haziness right lung base, nonspecific. Stable atelectasis or scarring, less likely pneumonia, at the left lung base. Labs Labs: Laboratory Results - last 24 hr 08/11/24 08/11/24 08/11/24 10:53 10:54 11:15 WBC 31.4 H RBC 4.19 L Hgb 13.2 L Hct 39.5 L MCV 94.3 MCH 31.5 MCHC 33.4 RDW 14.4 Plt Count 276 MPV 10.4 Immature Gran % (Auto) Not Reportable Neut % (Auto) Not Reportable Lymph % (Auto) Not Reportable [place] % (Auto) Not Reportable Eos % (Auto) Not Reportable Baso % (Auto) Not Reportable Lymph # (Auto) Not Reportable [place] # (Auto) Not Reportable Eos # (Auto) Not Reportable Baso # (Auto) Not Reportable Abs Immat Gran (auto) Not Reportable Absolute Neuts (auto) Not Reportable Absolute Nucleated RBC Not Reportable Total Counted 100 Neutrophils % (Manual) 79 H Band Neutrophils % 13 H Lymphocytes % (Manual) 1.0 L Monocytes % (Manual) 7 Nucleated RBC % Not Reportable Abs Neuts (Manual) 28.88 H Abs Lymphs (Manual) 0.31 L Abs Monocytes (Manual) 2.19 H Platelet Estimate Adequate Large Platelets Schistocytes None seen PT 18.9 H INR 1.6 APTT 33.9 Puncture Site ABG pH ABG pCO2 ABG pO2 ABG PO2/FiO2 Ratio ABG HCO3 ABG O2 Saturation ABG O2 Content ABG Base Excess A-a Gradient Oxyhemoglobin Total Hemoglobin O2 Delivery Device O2 Liters/Min Minute Volume Vent Rate Vent Mode FiO2 Tidal Volume PEEP Peak Inspir Pressure Pressure Support Sodium Potassium Chloride Carbon Dioxide Anion Gap BUN Creatinine 1.70 H Estim Creat Clear Calc 50 Estimated GFR 43 L Glucose POC Capillary Glucose Lactic Acid Calcium Phosphorus Magnesium Total Bilirubin AST ALT Alkaline Phosphatase Total Creatine Kinase Troponin I NT-Pro-B Natriuret Pep Total Protein Albumin Triglycerides Lipase Procalcitonin TSH (Reflex) Urine Color Yellow Urine Appearance Cloudy H Urine pH 7.5 Ur Specific [place] 1.013 Urine Protein 3+ H Urine Glucose (UA) 2+ H Urine Ketones Negative Ur Blood (Man) 3+ H Urine Nitrate Positive H Urine Bilirubin Negative Urine Urobilinogen 0.2 Add Ur Microanalysis Reviewed Leukocyte Esterase Rfl 2+ H Urine RBC >100 H Urine WBC >100 H Ur Squamous Epith Cells None seen Urine Bacteria 4+ H Urine Casts >20 Urine Eosinophils Ur Random Sodium Urine Creatinine Nasal MRSA (PCR) Digoxin Urine Opiates Screen Negative Urine Methadone Screen Negative Ur Barbiturates Screen Negative Ur Phencyclidine Scrn Negative Ur Amphetamine Screen Negative U Benzodiazepines Scrn Negative Urine Cocaine Screen Negative U Cannabinoids Screen Negative Ethyl Alcohol C. difficile (PCR) Influenza A (RT-PCR) Negative Influenza B (RT-PCR) Negative RSV (RT-PCR) Negative SARS-CoV-2 RNA (RT-PCR) Negative 08/11/24 08/11/24 08/11/24 12:19 13:22 13:36 WBC RBC Hgb Hct MCV MCH MCHC RDW Plt Count MPV Immature Gran % (Auto) Neut % (Auto) Lymph % (Auto) [place] % (Auto) Eos % (Auto) Baso % (Auto) Lymph # (Auto) [place] # (Auto) Eos # (Auto) Baso # (Auto) Abs Immat Gran (auto) Absolute Neuts (auto) Absolute Nucleated RBC Total Counted Neutrophils % (Manual) Band Neutrophils % Lymphocytes % (Manual) Monocytes % (Manual) Nucleated RBC % Abs Neuts (Manual) Abs Lymphs (Manual) Abs Monocytes (Manual) Platelet Estimate Large Platelets Schistocytes PT INR APTT Puncture Site Right brachial ABG pH 7.455 H ABG pCO2 32.4 L ABG pO2 280.7 H ABG PO2/FiO2 Ratio 4.32 ABG HCO3 22.3 ABG O2 Saturation 99.7 ABG O2 Content 17.0 ABG Base Excess -1.0 A-a Gradient 147.5 Oxyhemoglobin 99.1 Total Hemoglobin 11.7 L O2 Delivery Device Ventilator O2 Liters/Min Not Reportable Minute Volume Not Reportable Vent Rate 12 Vent Mode Cmv FiO2 65 Tidal Volume 500 PEEP 5 Peak Inspir Pressure Not Reportable Pressure Support Not Reportable Sodium 134 L Potassium 3.5 Chloride 101 Carbon Dioxide 25 Anion Gap 8 BUN 11 D Creatinine 1.59 H Estim Creat Clear Calc 54 Estimated GFR 47 L Glucose 121 H POC Capillary Glucose Lactic Acid 1.9 Calcium 8.3 L Phosphorus Magnesium 2.0 Total Bilirubin 1.0 AST 72 H ALT 31 Alkaline Phosphatase 90 Total Creatine Kinase 1099 H Troponin I 0.354 H* NT-Pro-B Natriuret Pep 2310 H Total Protein 6.0 L Albumin 3.2 L Triglycerides 73 Lipase 81 Procalcitonin > 100.0 TSH (Reflex) 3.200 Urine Color Urine Appearance Urine pH Ur Specific [place] Urine Protein Urine Glucose (UA) Urine Ketones Ur Blood (Man) Urine Nitrate Urine Bilirubin Urine Urobilinogen Add Ur Microanalysis Leukocyte Esterase Rfl Urine RBC Urine WBC Ur Squamous Epith Cells Urine Bacteria Urine Casts Urine Eosinophils Ur Random Sodium Urine Creatinine Nasal MRSA (PCR) Not detected Digoxin < 0.5 L Urine Opiates Screen Urine Methadone Screen Ur Barbiturates Screen Ur Phencyclidine Scrn Ur Amphetamine Screen U Benzodiazepines Scrn Urine Cocaine Screen U Cannabinoids Screen Ethyl Alcohol < 10 C. difficile (PCR) Influenza A (RT-PCR) Influenza B (RT-PCR) RSV (RT-PCR) SARS-CoV-2 RNA (RT-PCR) 08/11/24 08/11/24 08/11/24 13:38 13:55 16:08 WBC RBC Hgb Hct MCV MCH MCHC RDW Plt Count MPV Immature Gran % (Auto) Neut % (Auto) Lymph % (Auto) [place] % (Auto) Eos % (Auto) Baso % (Auto) Lymph # (Auto) [place] # (Auto) Eos # (Auto) Baso # (Auto) Abs Immat Gran (auto) Absolute Neuts (auto) Absolute Nucleated RBC Total Counted Neutrophils % (Manual) Band Neutrophils % Lymphocytes % (Manual) Monocytes % (Manual) Nucleated RBC % Abs Neuts (Manual) Abs Lymphs (Manual) Abs Monocytes (Manual) Platelet Estimate Large Platelets Schistocytes PT INR APTT Puncture Site ABG pH ABG pCO2 ABG pO2 ABG PO2/FiO2 Ratio ABG HCO3 ABG O2 Saturation ABG O2 Content ABG Base Excess A-a Gradient Oxyhemoglobin Total Hemoglobin O2 Delivery Device O2 Liters/Min Minute Volume Vent Rate Vent Mode FiO2 Tidal Volume PEEP Peak Inspir Pressure Pressure Support Sodium Potassium Chloride Carbon Dioxide Anion Gap BUN Creatinine Estim Creat Clear Calc Estimated GFR Glucose POC Capillary Glucose 109 H Lactic Acid Calcium Phosphorus 1.4 L Magnesium Total Bilirubin AST ALT Alkaline Phosphatase Total Creatine Kinase Troponin I NT-Pro-B Natriuret Pep Total Protein Albumin Triglycerides Lipase Procalcitonin TSH (Reflex) Urine Color Urine Appearance Urine pH Ur Specific [place] Urine Protein Urine Glucose (UA) Urine Ketones Ur Blood (Man) Urine Nitrate Urine Bilirubin Urine Urobilinogen Add Ur Microanalysis Leukocyte Esterase Rfl Urine RBC Urine WBC Ur Squamous Epith Cells Urine Bacteria Urine Casts Urine Eosinophils None seen Ur Random Sodium Urine Creatinine Cancelled Nasal MRSA (PCR) Digoxin Urine Opiates Screen Urine Methadone Screen Ur Barbiturates Screen Ur Phencyclidine Scrn Ur Amphetamine Screen U Benzodiazepines Scrn Urine Cocaine Screen U Cannabinoids Screen Ethyl Alcohol C. difficile (PCR) Influenza A (RT-PCR) Influenza B (RT-PCR) RSV (RT-PCR) SARS-CoV-2 RNA (RT-PCR) 08/11/24 08/11/24 08/11/24 16:08 16:12 16:48 WBC RBC Hgb Hct MCV MCH MCHC RDW Plt Count MPV Immature Gran % (Auto) Neut % (Auto) Lymph % (Auto) [place] % (Auto) Eos % (Auto) Baso % (Auto) Lymph # (Auto) [place] # (Auto) Eos # (Auto) Baso # (Auto) Abs Immat Gran (auto) Absolute Neuts (auto) Absolute Nucleated RBC Total Counted Neutrophils % (Manual) Band Neutrophils % Lymphocytes % (Manual) Monocytes % (Manual) Nucleated RBC % Abs Neuts (Manual) Abs Lymphs (Manual) Abs Monocytes (Manual) Platelet Estimate Large Platelets Schistocytes PT INR APTT Puncture Site ABG pH ABG pCO2 ABG pO2 ABG PO2/FiO2 Ratio ABG HCO3 ABG O2 Saturation ABG O2 Content ABG Base Excess A-a Gradient Oxyhemoglobin Total Hemoglobin O2 Delivery Device O2 Liters/Min Minute Volume Vent Rate Vent Mode FiO2 Tidal Volume PEEP Peak Inspir Pressure Pressure Support Sodium Potassium Chloride Carbon Dioxide Anion Gap BUN Creatinine Estim Creat Clear Calc Estimated GFR Glucose POC Capillary Glucose Lactic Acid Calcium Phosphorus Magnesium Total Bilirubin AST ALT Alkaline Phosphatase Total Creatine Kinase Troponin I 0.233 H* D NT-Pro-B Natriuret Pep Total Protein Albumin Triglycerides Lipase Procalcitonin TSH (Reflex) Urine Color Urine Appearance Urine pH Ur Specific [place] Urine Protein Urine Glucose (UA) Urine Ketones Ur Blood (Man) Urine Nitrate Urine Bilirubin Urine Urobilinogen Add Ur Microanalysis Leukocyte Esterase Rfl Urine RBC Urine WBC Ur Squamous Epith Cells Urine Bacteria Urine Casts Urine Eosinophils Ur Random Sodium Urine Creatinine Nasal MRSA (PCR) Digoxin Urine Opiates Screen Urine Methadone Screen Ur Barbiturates Screen Ur Phencyclidine Scrn Ur Amphetamine Screen U Benzodiazepines Scrn Urine Cocaine Screen U Cannabinoids Screen Ethyl Alcohol C. difficile (PCR) Negative Influenza A (RT-PCR) Influenza B (RT-PCR) RSV (RT-PCR) SARS-CoV-2 RNA (RT-PCR) 08/11/24 08/12/24 08/12/24 17:58 00:58 04:33 WBC RBC Hgb Hct MCV MCH MCHC RDW Plt Count MPV Immature Gran % (Auto) Neut % (Auto) Lymph % (Auto) [place] % (Auto) Eos % (Auto) Baso % (Auto) Lymph # (Auto) [place] # (Auto) Eos # (Auto) Baso # (Auto) Abs Immat Gran (auto) Absolute Neuts (auto) Absolute Nucleated RBC Total Counted Neutrophils % (Manual) Band Neutrophils % Lymphocytes % (Manual) Monocytes % (Manual) Nucleated RBC % Abs Neuts (Manual) Abs Lymphs (Manual) Abs Monocytes (Manual) Platelet Estimate Large Platelets Schistocytes PT INR APTT Puncture Site Right radial ABG pH 7.339 L ABG pCO2 38.8 ABG pO2 160.1 H ABG PO2/FiO2 Ratio 4.00 ABG HCO3 20.4 L ABG O2 Saturation 99.0 ABG O2 Content 17.5 ABG Base Excess -4.9 A-a Gradient 80.5 Oxyhemoglobin 98.8 Total Hemoglobin 12.4 O2 Delivery Device Ventilator O2 Liters/Min Not Reportable Minute Volume Not Reportable Vent Rate Vent Mode FiO2 40 Tidal Volume PEEP Peak Inspir Pressure Not Reportable Pressure Support Not Reportable Sodium Potassium Chloride Carbon Dioxide Anion Gap BUN Creatinine Estim Creat Clear Calc Estimated GFR Glucose POC Capillary Glucose 128 H 115 H Lactic Acid Calcium Phosphorus Magnesium Total Bilirubin AST ALT Alkaline Phosphatase Total Creatine Kinase Troponin I NT-Pro-B Natriuret Pep Total Protein Albumin Triglycerides Lipase Procalcitonin TSH (Reflex) Urine Color Urine Appearance Urine pH Ur Specific [place] Urine Protein Urine Glucose (UA) Urine Ketones Ur Blood (Man) Urine Nitrate Urine Bilirubin Urine Urobilinogen Add Ur Microanalysis Leukocyte Esterase Rfl Urine RBC Urine WBC Ur Squamous Epith Cells Urine Bacteria Urine Casts Urine Eosinophils Ur Random Sodium Urine Creatinine Nasal MRSA (PCR) Digoxin Urine Opiates Screen Urine Methadone Screen Ur Barbiturates Screen Ur Phencyclidine Scrn Ur Amphetamine Screen U Benzodiazepines Scrn Urine Cocaine Screen U Cannabinoids Screen Ethyl Alcohol C. difficile (PCR) Influenza A (RT-PCR) Influenza B (RT-PCR) RSV (RT-PCR) SARS-CoV-2 RNA (RT-PCR) 08/12/24 08/12/24 04:36 04:52 WBC 34.2 H RBC 3.69 L Hgb 11.6 L Hct 35.5 L MCV 96.2 MCH 31.4 MCHC 32.7 RDW 14.6 H Plt Count 198 MPV 10.1 Immature Gran % (Auto) Not Reportable Neut % (Auto) Not Reportable Lymph % (Auto) Not Reportable [place] % (Auto) Not Reportable Eos % (Auto) Not Reportable Baso % (Auto) Not Reportable Lymph # (Auto) Not Reportable [place] # (Auto) Not Reportable Eos # (Auto) Not Reportable Baso # (Auto) Not Reportable Abs Immat Gran (auto) Not Reportable Absolute Neuts (auto) Not Reportable Absolute Nucleated RBC Not Reportable Total Counted 100 Neutrophils % (Manual) 80 H Band Neutrophils % 9 H Lymphocytes % (Manual) 7.0 L Monocytes % (Manual) 4 Nucleated RBC % Not Reportable Abs Neuts (Manual) 30.43 H Abs Lymphs (Manual) 2.39 Abs Monocytes (Manual) 1.36 H Platelet Estimate Adequate Large Platelets Present Schistocytes None seen PT INR APTT Puncture Site ABG pH ABG pCO2 ABG pO2 ABG PO2/FiO2 Ratio ABG HCO3 ABG O2 Saturation ABG O2 Content ABG Base Excess A-a Gradient Oxyhemoglobin Total Hemoglobin O2 Delivery Device O2 Liters/Min Minute Volume Vent Rate Vent Mode FiO2 Tidal Volume PEEP Peak Inspir Pressure Pressure Support Sodium 137 Potassium 4.2 Chloride 106 Carbon Dioxide 22 Anion Gap 9 BUN 13 Creatinine 0.92 Estim Creat Clear Calc 90 Estimated GFR > 60 Glucose 116 H POC Capillary Glucose Lactic Acid Calcium 7.4 L Phosphorus 4.3 Magnesium 1.8 Total Bilirubin 0.7 AST 88 H ALT 38 Alkaline Phosphatase 67 Total Creatine Kinase Troponin I 0.114 H* NT-Pro-B Natriuret Pep Total Protein 6.0 L Albumin 3.5 Triglycerides Lipase Procalcitonin TSH (Reflex) Urine Color Urine Appearance Urine pH Ur Specific [place] Urine Protein Urine Glucose (UA) Urine Ketones Ur Blood (Man) Urine Nitrate Urine Bilirubin Urine Urobilinogen Add Ur Microanalysis Leukocyte Esterase Rfl Urine RBC Urine WBC Ur Squamous Epith Cells Urine Bacteria Urine Casts Urine Eosinophils Ur Random Sodium 57 Urine Creatinine 73.0 Nasal MRSA (PCR) Digoxin Urine Opiates Screen Urine Methadone Screen Ur Barbiturates Screen Ur Phencyclidine Scrn Ur Amphetamine Screen U Benzodiazepines Scrn Urine Cocaine Screen U Cannabinoids Screen Ethyl Alcohol C. difficile (PCR) Influenza A (RT-PCR) Influenza B (RT-PCR) RSV (RT-PCR) SARS-CoV-2 RNA (RT-PCR) Quality VTE Prophylaxis VTE prophylaxis: pharmacologic ordered
[2024-08-12] MEDS: NOREPINEPHRINE 8 MG/D5W 250 ML 8 MG/250 ML BAG 13.13 MG IV CONT (09:30)
[2024-08-12] MEDS: CEFEPIME 2 GM/NS 50 ML 2 GM/50 ML BAG IVPB ×2 (11:02→18:08)
[2024-08-12] MEDS: VANCOMYCIN 1,250 MG/NS 250 ML 1,250 MG/250 ML BAG 166.67 MG IVPB ×2 (11:03→22:22)
[2024-08-12 11:23] LABS: Glucose Point of Care 123 mg/dl (65-105)
--- NOTE | 2024-08-12 13:22 | PM.CNOR ---
Assessment and Plan Assessment and plan (1) Swollen L knee: Code(s): M25.462 - Effusion, left knee Status: Acute Assessment and Plan: A CT scan of the left knee reveals postoperative changes in the patella with destructive changes and fragmentation and a possible multilocular abscess seen in the suprapatellar bursa. patient with known history of a left patella fracture and more than 1 surgery [address] [facility]. Singh performed aspiration of the left knee today with a hemarthrosis and fluid sent for stat Gram stain and culture. Clinically, the suspicion for a septic joint is low currently. Update 08/13: Gram Stain results with no organisms seen, rare WBCs. Cultures pending. We will await final results of synovial fluid and determine further plan of care. Thank you for allowing us to assist in the care of this patient. (2) Ankle fracture, left: Qualifiers: Encounter type: initial encounter Fracture type: closed Qualified Code(s): S82.892A - Other fracture of left lower leg, initial encounter for closed fracture Code(s): S82.892A - Other fracture of left lower leg, initial encounter for closed fracture Status: Acute Assessment and Plan: Radiographs of the left ankle reveal a nondisplaced lateral malleolus fracture with possible new callus formation. Per the patient's family, this injury occurred initially in the middle of May. Pending improvement in patient's medical condition, would recommend a fracture boot utilized for out of bed with protected weight-bearing. In the interim, ice, elevate. Pain control. History of Present Illness HPI Consult date: 08/13/24 Chief complaint: Sepsis, respiratory failure, UTI, pneumonia Narrative: 48-year-old male admitted due to respiratory failure, sepsis, UTI and pneumonia. Orthopedic consult requested due to CT findings of a left ankle lateral malleolus fracture and left knee with possible abscess. Patient does have a history of a left knee surgery which was performed in 2019 at [facility] by [address]. Barreto. per the mother at the bedside, the patient had a dislocation injury. He had a surgery to remove a portion of the patella. This surgery was complicated by a incisional dehiscence requiring repeat surgical intervention and wound closure. She reports several falls since that time but no significant difficulties with the left knee. The patient's mother endorses a fall which occurred in the middle of May resulting in the left ankle sprain. He had significant difficulties with ambulation following this injury. He spent several days resting with support at home from his family. She reports noticing improvement in pain of the left ankle over the last several weeks but then it was worsened last week. To note, the has a history of a brain injury status post brain aneurysm at age 11. He is relatively independent, living with his grandmother and walking several miles a day until 2019 after his injury of the left knee. A CT scan of the left knee reveals postoperative changes in the patella with destructive changes and fragmentation and a possible multilocular abscess seen in the suprapatellar bursa. A XR of the left ankle reveals a lateral malleolus fracture with minimal displacement and possible new callus formation. Orthopedic consult requested for further evaluation. Review of Systems Review of Systems: ROS unobtainable: Yes unobtainable due to medical condition PMFSH Past Medical History Medical History Pulmonary hypertension Rheumatoid arthritis Hyponatremia MVP (mitral valve prolapse) Systolic heart failure Frequent falls Atrial fibrillation History of seizure Hx of traumatic brain injury Heart murmur Pulmonary nodule Osteoporosis Brain aneurysm Ulcerative colitis Hypertension Surgical History Surgical History TANGLED YARN SPOOL STRAIGHTENER (ventriculoperitoneal) shunt status H/O left knee surgery Hx of tracheostomy Hx of colonoscopy Hx of brain surgery S/P clamping of cerebral aneurysm Family History Family History Father Hypertension Family history of coronary artery disease Mother Hypertension Family history of coronary artery disease Grandparent Carcinoma of colon Diabetes mellitus Social History Social History Social History: The patient is currently living with his grandmother and helps to take care of her. The patient walks with a walker typically but has been in a wheelchair recently. Lifelong nonsmoker. He denies any alcohol marijuana or illicit drugs. The patient denies being on disability but is unemployed at this time Code status full code Smoking status: Never smoker Second hand tobacco smoke exposure: No Alcohol intake: never Substance use: never Substance use type: does not use Lack of Transportation: No Lack of Food: Never True Current Housing: I Have Housing Concerned About Future Housing: No Difficulty Paying Gas/Electric Bills: No Difficulty Paying for Meds: No Currently Unemployed: No Education: Trade/Vocational Certificate Difficulty w/ Childcare or Family Care: No Living arrangements: with family Gender identity (if verbalized by the patient): Male Spiritual care concerns: No Meds Home Medications and Allergies Home Medications ?Medication ?Instructions ?Recorded ?Confirmed ?Type adalimumab 40 mg/0.8 mL 40 mg subcut Q14D 03/19/19 08/11/24 History subcutaneous pen kit (Humira Pen) alendronate 70 mg tablet 70 mg PO WEEKLY 03/19/19 08/11/24 History folic acid 1 mg tablet 1 mg PO DAILY 03/19/19 08/11/24 History calcium carbonate (Calcium 500) 500 mg PO BID 03/25/19 08/11/24 History glucosamine-chondroitin 250 mg-200 2 tablet PO DAILY 03/25/19 08/11/24 History mg tablet (Osteo Bi-Flex) multivitamin,lt-zrme-tzbxowad 1 tablet PO DAILY 03/25/19 08/11/24 History (Complete Multivitamin tablet) azathioprine 50 mg tablet (Imuran) 100 mg PO DAILY 06/06/20 08/11/24 History apixaban 5 mg tablet (Eliquis) 5 mg PO Q12HR 30 days #60 tabs 05/24/24 08/11/24 Rx digoxin 250 mcg (0.25 mg) tablet 250 mcg PO QAM 30 days #30 tabs 05/24/24 08/11/24 Rx (Digitek) empagliflozin 10 mg tablet 10 mg PO DAILY 30 days #30 tabs 05/24/24 08/11/24 Rx (Jardiance) furosemide 40 mg tablet 40 mg PO DAILY 30 days #30 tabs 05/24/24 08/11/24 Rx metoprolol succinate 100 mg 200 mg (2 x 100 mg) PO QAM 30 days 05/24/24 08/11/24 Rx tablet,extended release 24 hr #60 tabs (Toprol XL) sacubitril 24 mg-valsartan 26 mg 1 tab PO Q12HR 30 days #60 tabs 05/24/24 08/11/24 Rx tablet (Entresto) spironolactone 25 mg tablet 25 mg PO QAM 30 days #30 tabs 05/24/24 08/11/24 Rx tamsulosin 0.4 mg capsule 0.4 mg PO QAM 30 days #30 caps 05/24/24 08/11/24 Rx sulfasalazine 500 mg tablet 500 mg PO QID 90 days #360 tabs 07/29/24 08/11/24 Rx Allergies Allergy/AdvReac Type Severity Reaction Status Date / Time No Known Allergies Allergy Verified 06/15/24 10:58 Vital Signs Vital Signs - 24 hr 08/11/24 13:45 08/11/24 14:00 08/11/24 14:00 Temperature 38.4 C H Pulse Rate 93 96 93 Respiratory Rate 12 Blood Pressure 80/61 L 99/73 L Pulse Oximetry 100 Oxygen Delivery Fraction of Inspired Oxygen 08/11/24 14:00 08/11/24 14:00 08/11/24 14:21 Temperature 38.4 C H Pulse Rate 123 H 123 H 123 H Respiratory Rate 24 H 24 H 12 Blood Pressure 99/73 L Pulse Oximetry 100 Oxygen Delivery Fraction of Inspired Oxygen 08/11/24 14:32 08/11/24 14:56 08/11/24 15:17 Temperature Pulse Rate 95 85 83 Respiratory Rate Blood Pressure 84/62 L 74/58 L Pulse Oximetry 100 Oxygen Delivery Mechanical Ventilation Fraction of Inspired Oxygen 40 08/11/24 15:17 08/11/24 15:28 08/11/24 16:00 Temperature 37.6 C H Pulse Rate 83 86 83 Respiratory Rate 12 12 12 Blood Pressure 91/68 L Pulse Oximetry 100 Oxygen Delivery Fraction of Inspired Oxygen 08/11/24 16:00 08/11/24 16:00 08/11/24 16:00 Temperature Pulse Rate 82 82 82 Respiratory Rate 14 Blood Pressure 81/54 L 81/54 L Pulse Oximetry Oxygen Delivery Fraction of Inspired Oxygen 08/11/24 16:00 08/11/24 16:00 08/11/24 16:00 Temperature Pulse Rate 82 82 82 Respiratory Rate 14 12 Blood Pressure Pulse Oximetry 100 Oxygen Delivery Mechanical Ventilation Fraction of Inspired Oxygen 40 08/11/24 16:41 08/11/24 17:20 08/11/24 17:20 Temperature Pulse Rate 88 75 75 Respiratory Rate Blood Pressure 89/68 L 109/85 109/85 Pulse Oximetry Oxygen Delivery Fraction of Inspired Oxygen 08/11/24 17:50 08/11/24 18:00 08/11/24 18:00 Temperature 36.9 C Pulse Rate 75 73 73 Respiratory Rate 12 Blood Pressure 117/90 Pulse Oximetry 100 100 Oxygen Delivery Mechanical Ventilation Fraction of Inspired Oxygen 40 08/11/24 18:15 08/11/24 18:15 08/11/24 18:16 Temperature Pulse Rate 73 73 73 Respiratory Rate 12 Blood Pressure 113/97 H 113/97 H Pulse Oximetry Oxygen Delivery Fraction of Inspired Oxygen 08/11/24 18:16 08/11/24 18:17 08/11/24 19:00 Temperature Pulse Rate 73 73 72 Respiratory Rate 12 12 Blood Pressure 113/97 H Pulse Oximetry Oxygen Delivery Fraction of Inspired Oxygen 08/11/24 19:21 08/11/24 19:30 08/11/24 19:34 Temperature 36.8 C Pulse Rate 72 71 72 Respiratory Rate 12 12 Blood Pressure 119/98 H 119/98 H Pulse Oximetry 100 Oxygen Delivery Fraction of Inspired Oxygen 08/11/24 19:45 08/11/24 19:45 08/11/24 19:50 Temperature 36.9 C Pulse Rate 71 71 72 Respiratory Rate 12 Blood Pressure 115/95 H 115/95 H 115/95 H Pulse Oximetry 100 Oxygen Delivery Fraction of Inspired Oxygen 08/11/24 19:54 08/11/24 20:00 08/11/24 20:00 Temperature Pulse Rate 74 73 72 Respiratory Rate 12 12 Blood Pressure 111/89 Pulse Oximetry Oxygen Delivery Fraction of Inspired Oxygen 08/11/24 20:00 08/11/24 20:00 08/11/24 20:00 Temperature Pulse Rate 73 73 73 Respiratory Rate 12 Blood Pressure 111/89 111/89 Pulse Oximetry Oxygen Delivery Fraction of Inspired Oxygen 08/11/24 20:00 08/11/24 20:00 08/11/24 20:00 Temperature 36.9 C Pulse Rate 73 Respiratory Rate 12 Blood Pressure 111/89 Pulse Oximetry 100 Oxygen Delivery Mechanical Ventilation Fraction of Inspired Oxygen 40 40 08/11/24 20:00 08/11/24 20:02 08/11/24 20:04 Temperature Pulse Rate 71 71 73 Respiratory Rate 12 Blood Pressure Pulse Oximetry 100 Oxygen Delivery Mechanical Ventilation Fraction of Inspired Oxygen 40 08/11/24 20:15 08/11/24 20:15 08/11/24 20:30 Temperature 36.9 C Pulse Rate 72 73 72 Respiratory Rate 12 Blood Pressure 114/89 114/89 121/94 H Pulse Oximetry 100 Oxygen Delivery Fraction of Inspired Oxygen 08/11/24 20:30 08/11/24 20:45 08/11/24 20:45 Temperature 36.9 C 36.9 C Pulse Rate 72 74 73 Respiratory Rate 12 11 L Blood Pressure 121/94 H 115/92 H 115/92 H Pulse Oximetry 100 100 Oxygen Delivery Fraction of Inspired Oxygen 08/11/24 21:00 08/11/24 21:00 08/11/24 21:15 Temperature 36.9 C Pulse Rate 72 71 72 Respiratory Rate 12 Blood Pressure 118/92 H 118/92 H 116/95 H Pulse Oximetry 100 Oxygen Delivery Fraction of Inspired Oxygen 08/11/24 21:15 08/11/24 21:24 08/11/24 21:30 Temperature 36.8 C Pulse Rate 71 72 72 Respiratory Rate 12 Blood Pressure 116/95 H 116/95 H 113/91 H Pulse Oximetry 100 Oxygen Delivery Fraction of Inspired Oxygen 08/11/24 21:30 08/11/24 21:45 08/11/24 21:45 Temperature 36.9 C 36.8 C Pulse Rate 71 70 71 Respiratory Rate 12 12 Blood Pressure 113/91 H 111/83 111/83 Pulse Oximetry 100 100 Oxygen Delivery Fraction of Inspired Oxygen 08/11/24 22:00 08/11/24 22:00 08/11/24 22:00 Temperature Pulse Rate 69 69 69 Respiratory Rate 12 Blood Pressure 110/86 110/86 Pulse Oximetry Oxygen Delivery Fraction of Inspired Oxygen 08/11/24 22:00 08/11/24 22:00 08/11/24 22:00 Temperature Pulse Rate 69 69 70 Respiratory Rate 12 Blood Pressure 110/86 Pulse Oximetry Oxygen Delivery Fraction of Inspired Oxygen 08/11/24 22:15 08/11/24 22:15 08/11/24 22:15 Temperature Pulse Rate 68 68 68 Respiratory Rate Blood Pressure 109/87 109/87 109/87 Pulse Oximetry Oxygen Delivery Fraction of Inspired Oxygen 08/11/24 22:30 08/11/24 22:30 08/11/24 22:45 Temperature Pulse Rate 67 67 67 Respiratory Rate Blood Pressure 110/86 110/86 106/87 Pulse Oximetry Oxygen Delivery Fraction of Inspired Oxygen 08/11/24 22:45 08/11/24 22:47 08/11/24 23:30 Temperature Pulse Rate 68 66 68 Respiratory Rate 17 17 Blood Pressure Pulse Oximetry 98 Oxygen Delivery Mechanical Ventilation Fraction of Inspired Oxygen 40 08/11/24 23:45 08/12/24 00:00 08/12/24 00:00 Temperature Pulse Rate 69 68 68 Respiratory Rate 16 13 13 Blood Pressure Pulse Oximetry Oxygen Delivery Fraction of Inspired Oxygen 08/12/24 00:00 08/12/24 00:00 08/12/24 00:00 Temperature Pulse Rate 68 68 68 Respiratory Rate Blood Pressure 95/70 L 95/70 L 95/70 L Pulse Oximetry Oxygen Delivery Fraction of Inspired Oxygen 08/12/24 00:00 08/12/24 00:00 08/12/24 00:00 Temperature 36.6 C Pulse Rate 69 Respiratory Rate 16 Blood Pressure 95/70 L Pulse Oximetry 100 Oxygen Delivery Mechanical Ventilation Fraction of Inspired Oxygen 40 40 08/12/24 00:00 08/12/24 00:01 08/12/24 00:15 Temperature 36.6 C 36.5 C Pulse Rate 68 68 68 Respiratory Rate 17 15 Blood Pressure 98/69 L Pulse Oximetry 99 99 Oxygen Delivery Fraction of Inspired Oxygen 08/12/24 00:30 08/12/24 00:45 08/12/24 01:00 Temperature 36.5 C 36.4 C 36.4 C Pulse Rate 67 68 64 Respiratory Rate 12 12 12 Blood Pressure 99/71 L 102/73 105/75 Pulse Oximetry 99 99 99 Oxygen Delivery Fraction of Inspired Oxygen 08/12/24 01:09 08/12/24 01:10 08/12/24 01:30 Temperature Pulse Rate 66 66 68 Respiratory Rate 12 Blood Pressure 114/78 Pulse Oximetry 99 Oxygen Delivery Mechanical Ventilation Fraction of Inspired Oxygen 40 08/12/24 01:30 08/12/24 01:45 08/12/24 01:45 Temperature Pulse Rate 68 67 67 Respiratory Rate 12 12 Blood Pressure 114/78 111/76 111/76 Pulse Oximetry 99 99 Oxygen Delivery Fraction of Inspired Oxygen 08/12/24 02:00 08/12/24 02:00 08/12/24 02:00 Temperature Pulse Rate 66 66 66 Respiratory Rate 12 12 Blood Pressure 108/76 Pulse Oximetry Oxygen Delivery Fraction of Inspired Oxygen 08/12/24 02:00 08/12/24 02:00 08/12/24 02:00 Temperature Pulse Rate 66 66 67 Respiratory Rate Blood Pressure 108/76 108/76 Pulse Oximetry Oxygen Delivery Fraction of Inspired Oxygen 08/12/24 02:00 08/12/24 02:15 08/12/24 02:15 Temperature 36.4 C 36.4 C Pulse Rate 67 68 68 Respiratory Rate 12 12 Blood Pressure 108/76 99/66 L 99/66 L Pulse Oximetry 99 100 Oxygen Delivery Fraction of Inspired Oxygen 08/12/24 02:30 08/12/24 02:30 08/12/24 02:45 Temperature 36.4 C L Pulse Rate 67 67 66 Respiratory Rate 12 Blood Pressure 97/66 L 97/66 L 99/66 L Pulse Oximetry 100 Oxygen Delivery Fraction of Inspired Oxygen 08/12/24 02:45 08/12/24 03:00 08/12/24 03:03 Temperature 36.3 C L Pulse Rate 66 63 65 Respiratory Rate 12 12 Blood Pressure 99/66 L 98/69 L 98/69 L Pulse Oximetry 100 99 Oxygen Delivery Fraction of Inspired Oxygen 08/12/24 04:00 08/12/24 04:00 08/12/24 04:00 Temperature Pulse Rate 61 Respiratory Rate Blood Pressure 105/77 Pulse Oximetry Oxygen Delivery Mechanical Ventilation Fraction of Inspired Oxygen 40 40 08/12/24 04:00 08/12/24 04:00 08/12/24 04:00 Temperature Pulse Rate 61 61 61 Respiratory Rate 12 12 Blood Pressure 105/77 Pulse Oximetry Oxygen Delivery Fraction of Inspired Oxygen 08/12/24 04:00 08/12/24 04:00 08/12/24 04:00 Temperature 36.3 C L Pulse Rate 61 61 59 L Respiratory Rate 12 Blood Pressure 105/77 105/77 Pulse Oximetry 98 Oxygen Delivery Fraction of Inspired Oxygen 08/12/24 04:50 08/12/24 05:00 08/12/24 05:00 Temperature 36.3 C L Pulse Rate 60 66 66 Respiratory Rate 12 Blood Pressure 114/76 114/76 Pulse Oximetry 98 98 Oxygen Delivery Mechanical Ventilation Fraction of Inspired Oxygen 40 08/12/24 05:15 08/12/24 05:30 08/12/24 05:45 Temperature 36.3 C L 36.3 C L 36.2 C L Pulse Rate 70 69 67 Respiratory Rate 12 12 12 Blood Pressure 105/65 104/65 105/69 Pulse Oximetry 98 100 100 Oxygen Delivery Fraction of Inspired Oxygen 08/12/24 06:00 08/12/24 06:00 08/12/24 06:00 Temperature Pulse Rate 69 69 69 Respiratory Rate 12 12 Blood Pressure 113/70 Pulse Oximetry Oxygen Delivery Fraction of Inspired Oxygen 08/12/24 06:00 08/12/24 06:00 08/12/24 06:00 Temperature 36.2 C L Pulse Rate 69 69 69 Respiratory Rate 12 Blood Pressure 113/70 113/70 113/70 Pulse Oximetry 99 Oxygen Delivery Fraction of Inspired Oxygen 08/12/24 06:00 08/12/24 06:15 08/12/24 06:30 Temperature 36.1 C L Pulse Rate 69 70 72 Respiratory Rate 12 Blood Pressure 107/66 109/68 Pulse Oximetry 99 Oxygen Delivery Fraction of Inspired Oxygen 08/12/24 06:30 08/12/24 06:45 08/12/24 07:00 Temperature 36.1 C L 35.9 C L 35.9 C L Pulse Rate 69 71 69 Respiratory Rate 12 12 23 H Blood Pressure 109/68 105/64 107/68 Pulse Oximetry 99 99 99 Oxygen Delivery Fraction of Inspired Oxygen 08/12/24 08:00 08/12/24 08:00 08/12/24 08:00 Temperature 35.9 C L Pulse Rate 69 62 62 Respiratory Rate 23 H 14 Blood Pressure 103/70 Pulse Oximetry 99 99 Oxygen Delivery Mechanical Ventilation Fraction of Inspired Oxygen 40 08/12/24 08:00 08/12/24 08:00 08/12/24 08:00 Temperature Pulse Rate 73 66 Respiratory Rate 12 Blood Pressure 103/70 Pulse Oximetry Oxygen Delivery Fraction of Inspired Oxygen 35 08/12/24 08:00 08/12/24 08:08 08/12/24 08:16 Temperature Pulse Rate 66 74 62 Respiratory Rate 12 14 Blood Pressure Pulse Oximetry 99 Oxygen Delivery Mechanical Ventilation Fraction of Inspired Oxygen 35 08/12/24 09:30 08/12/24 10:00 08/12/24 10:00 Temperature 36.0 C L Pulse Rate 68 66 68 Respiratory Rate 12 Blood Pressure 104/63 104/65 103/61 Pulse Oximetry 98 Oxygen Delivery Fraction of Inspired Oxygen 08/12/24 10:00 08/12/24 10:00 08/12/24 10:00 Temperature Pulse Rate 65 66 66 Respiratory Rate 12 12 Blood Pressure Pulse Oximetry Oxygen Delivery Fraction of Inspired Oxygen 08/12/24 10:59 08/12/24 12:00 08/12/24 12:00 Temperature 36.0 C L Pulse Rate 67 66 65 Respiratory Rate 12 12 Blood Pressure 108/64 Pulse Oximetry 98 98 98 Oxygen Delivery Mechanical Ventilation Mechanical Ventilation Fraction of Inspired Oxygen 35 35 08/12/24 12:00 08/12/24 12:00 08/12/24 12:00 Temperature Pulse Rate 65 65 Respiratory Rate Blood Pressure 109/69 Pulse Oximetry Oxygen Delivery Fraction of Inspired Oxygen 35 08/12/24 12:00 08/12/24 12:00 Temperature Pulse Rate 62 62 Respiratory Rate 12 12 Blood Pressure Pulse Oximetry Oxygen Delivery Fraction of Inspired Oxygen Exam Const: General: ill appearing and other ( Intubated) Nutritional Appearance: average body habitus Orientation/consciousness: Other orientation findings ( sedated) Limitations: other limitations ( sedated) Extrem: Left lower extremity: knee ( tiny abrasion at the distal aspect of the incision which is healed.) Details: swelling ( No palpable effusion), abnormal ROM ( limited due to medical condition), abrasion ( small abrasion at the distal aspect of the incision, no drainage.) and warmth ( Mild warmth, bogginess.); no ecchymosis, no crepitus and no deformity, ankle Details: swelling; no abrasions and no lacerations and foot Details: normal capillary refill and vascular exam Details: dorsalis pedis pulse present Results Labs 08/13/24 04:09 08/13/24 04:09 Labs: Abnormal lab results 08/11/24 08/11/24 08/11/24 Range/Units 13:36 13:38 13:55 WBC (4.5-10.0) K/mm3 RBC (4.6-6.20) M/mm3 Hgb (14.0-18.0) g/dL Hct (42.0-52.0) % RDW (11.5-14.5) % Neutrophils % (Manual) (46-73) % Band Neutrophils % (0-6) % Lymphocytes % (Manual) (18-44) % Abs Neuts (Manual) (1.3-6.7) K/mm3 Abs Monocytes (Manual) (0.1-0.90) K/mm3 ABG pH (7.350-7.450) ABG pO2 (80.0-100.0) mmHg ABG HCO3 (22.0-26.0) mEq/l Sodium 134 L (137-145) mmol/L Creatinine 1.59 H (0.7-1.3) mg/dL Estimated GFR 47 L (59 - ) Glucose 121 H (65-110) mg/dL POC Capillary Glucose 109 H (65-105) mg/dl Calcium 8.3 L (8.4-10.2) mg/dL Phosphorus 1.4 L (2.5-4.5) mg/dL AST 72 H (17-59) U/L Total Creatine Kinase 1099 H (55-170) U/L Troponin I 0.354 H* (0.000-0.034) ng/mL NT-Pro-B Natriuret Pep 2310 H (19.9-100) pg/mL Total Protein 6.0 L (6.3-8.2) g/dL Albumin 3.2 L (3.5-5.1) g/dL Digoxin < 0.5 L (0.8-2.0) ng/mL 08/11/24 08/11/24 08/12/24 Range/Units 16:48 17:58 00:58 WBC (4.5-10.0) K/mm3 RBC (4.6-6.20) M/mm3 Hgb (14.0-18.0) g/dL Hct (42.0-52.0) % RDW (11.5-14.5) % Neutrophils % (Manual) (46-73) % Band Neutrophils % (0-6) % Lymphocytes % (Manual) (18-44) % Abs Neuts (Manual) (1.3-6.7) K/mm3 Abs Monocytes (Manual) (0.1-0.90) K/mm3 ABG pH (7.350-7.450) ABG pO2 (80.0-100.0) mmHg ABG HCO3 (22.0-26.0) mEq/l Sodium (137-145) mmol/L Creatinine (0.7-1.3) mg/dL Estimated GFR (59 - ) Glucose (65-110) mg/dL POC Capillary Glucose 128 H 115 H (65-105) mg/dl Calcium (8.4-10.2) mg/dL Phosphorus (2.5-4.5) mg/dL AST (17-59) U/L Total Creatine Kinase (55-170) U/L Troponin I 0.233 H* D (0.000-0.034) ng/mL NT-Pro-B Natriuret Pep (19.9-100) pg/mL Total Protein (6.3-8.2) g/dL Albumin (3.5-5.1) g/dL Digoxin (0.8-2.0) ng/mL 08/12/24 08/12/24 08/12/24 Range/Units 04:33 04:36 11:15 WBC 34.2 H (4.5-10.0) K/mm3 RBC 3.69 L (4.6-6.20) M/mm3 Hgb 11.6 L (14.0-18.0) g/dL Hct 35.5 L (42.0-52.0) % RDW 14.6 H (11.5-14.5) % Neutrophils % (Manual) 80 H (46-73) % Band Neutrophils % 9 H (0-6) % Lymphocytes % (Manual) 7.0 L (18-44) % Abs Neuts (Manual) 30.43 H (1.3-6.7) K/mm3 Abs Monocytes (Manual) 1.36 H (0.1-0.90) K/mm3 ABG pH 7.339 L (7.350-7.450) ABG pO2 160.1 H (80.0-100.0) mmHg ABG HCO3 20.4 L (22.0-26.0) mEq/l Sodium (137-145) mmol/L Creatinine (0.7-1.3) mg/dL Estimated GFR (59 - ) Glucose 116 H (65-110) mg/dL POC Capillary Glucose 123 H (65-105) mg/dl Calcium 7.4 L (8.4-10.2) mg/dL Phosphorus (2.5-4.5) mg/dL AST 88 H (17-59) U/L Total Creatine Kinase (55-170) U/L Troponin I 0.114 H* (0.000-0.034) ng/mL NT-Pro-B Natriuret Pep (19.9-100) pg/mL Total Protein 6.0 L (6.3-8.2) g/dL Albumin (3.5-5.1) g/dL Digoxin (0.8-2.0) ng/mL H & H 08/11/24 08/12/24 Range/Units 10:54 04:36 Hgb 13.2 L 11.6 L (14.0-18.0) g/dL Hct 39.5 L 35.5 L (42.0-52.0) % Coagulation 08/11/24 Range/Units 10:54 INR 1.6 All other labs normal. Joint Aspiration & Injection Pre-Procedure Pre-procedure care: Consent was obtained, Procedures/risks were explained, Questions were answered, Correct patient identified and Correct side and site confirmed Post Procedure Patient tolerated the procedure well?: Tolerated procedure well Position Position: Laying Location: left (knee ) Site Prepped Technique: sterile technique Anesthetic: lidocaine 1% plain Fluid: Serosanguinous Fluid Withdrawn (mL): 10 Sterile Dressing Sterile Dressing: Adhesive KNEE Knee Procedure: lateral supratellar pouch Manual palpation Fracture/Casting/Strapping Pre Procedure Consent was obtained, Procedures/risks were explained, Questions were answered, Correct patient identified and Correct side and site confirmed Episode of Care New episode ( Left ankle) Fracture Care Tibia/malleolus/fibula/ankle Tibia, malleous, fibula, ankle: CLOSED TX DISTAL FIBULAR FX,WO MANIPULATION Supplies and DME DME: Foot/Ankle ( boot) Application Exam of Affected Area: Color: Normal, Temp: Normal, Pulse: Normal, Blanching: Normal, Capillary Refill: Normal and Sensory Exam: Abnormal ( unable to assess, patient is sedated) Swelling: Yes and Tenderness: No ( unable to assess, patient is ) Skin Apperance: Intact Care: Alcohol Wipes Post Procedure Patient tolerated the procedure well?: Tolerated procedure well
[2024-08-12 17:37] LABS: Glucose Point of Care 125 mg/dl (65-105)
[2024-08-12 23:37] LABS: Glucose Point of Care 115 mg/dl (65-105)
[2024-08-13] VITALS (38 sets, daily range): BP systolic 101–155; BP diastolic 54–91; PULSE 56–125; RESP 12–24; TEMP 36.7–37.5; O2SAT 92–97
[2024-08-13] MEDS: DOXYCYCLINE 100 MG/NS 100 ML 100 MG/100 ML BAG IVPB (01:47)
[2024-08-13] MEDS: CEFEPIME 2 GM/NS 50 ML 2 GM/50 ML BAG IVPB ×3 (01:47→17:50)
[2024-08-13] MEDS: IPRATROPIUM 0.5 MG/ALBUTEROL SULFATE 2.5 MG AMPUL.NEB 3 ML INHALATION ×4 (02:28→20:26)
[2024-08-13] MEDS: MIDAZOLAM 100MG/NS 100ML(*CRX) 100 MG/100 ML BAG IV CONT (03:22)
[2024-08-13] MEDS: ALBUMIN HUMAN 25% 25 GM/100 ML 100 ML IVPB (03:29)
[2024-08-13 04:19] LABS: Hematocrit 27.8 % (42.0-52.0); Mean Corpuscular HGB Conc 32.4 g/dl (32-36); Mean Corpuscular Hemoglobin 31.4 pg (26-34); Mean Corpuscular Volume 96.9 fl (80-100); Platelet Count Result 149 k/mm3 (150-375); Red Blood Count 2.87 M/mm3 (4.6-6.20); Red Cell Distribution Width 14.9 % (11.5-14.5); White Blood Count 21.8 K/mm3 (4.5-10.0)
[2024-08-13] MEDS: FENTANYL 2,500MCG/NS250ML(*CRX 2,500 MCG/250 ML BAG 15 MCG IV CONT (04:21)
[2024-08-13 04:30] LABS: Alanine Aminotransferase 45 U/L (6-50); Albumin Level 3.8 g/dL (3.5-5.1); Alkaline Phosphatase 45 U/L (38-126); Anion Gap 10 mmol/L (4-12); Aspartate Amino Transferase 108 U/L (17-59); Bilirubin,Total 0.6 mg/dL (0.2-1.3); Blood Urea Nitrogen 13 mg/dL (9-20); Calcium 7.8 mg/dL (8.4-10.2); Carbon Dioxide 21 mmol/L (22-30); Chloride 109 mmol/L (98-107); Estimated CRCL calculation 132 ml/min; Estimated Glomerular Filt Rate > 60; Glucose 112 mg/dL (65-110); Lactic Acid Reflex 1.6 mmol/L (0.7-2.0); Magnesium 1.8 mg/dL (1.6-2.3); Phosphorus 1.9 mg/dL (2.5-4.5); Potassium 3.5 mmol/L (3.4-5.0); Sodium 140 mmol/L (137-145)
[2024-08-13 04:45] LABS: Band Neutrophils Percent 5 % (0-6); Lymphocytes Absolute Manual 0.43 K/mm3 (1.1-4.5); Lymphocytes Percent Manual 2 % (18-44); Monocytes Absolute Manual 0.87 K/mm3 (0.1-0.90); Monocytes Percent Manual 4 % (3-9); Total Cells Counted 100
[2024-08-13 04:47] LABS: Neutrophils Absolute Manual 20.49 K/mm3 (1.3-6.7); Neutrophils Percent Manual 89 % (46-73)
[2024-08-13 04:49] LABS: Platelet Estimate Adequate (Adequate)
[2024-08-13 04:51] LABS: Anisocytosis 1+; Ovalocytes 1+; Schistocytes None Seen
[2024-08-13 05:57] LABS: Alveolar/Arterial O2 Gradient 54.3 mmHg; Base Excess ABG -4.1 mEq/l (+/-2.0); Carboxyhemoglobin 0.3 % THb (0-2.0); Fractional Inspired Oxygen 25 %; HCO3 ABG 19.9 mEq/l (22.0-26.0); Methemoglobin ABG 0.3 %THb (0-1.5); Oxygen Content ABG 13.3 %vol (16.0-22.0); Oxygen Saturation ABG 96.7 % (95.0-100.0); Oxyhemoglobin 95.9 % THb (90.0-100.0); PCO2 ABG 32.2 mmHg (35.0-45.0); PO2 ABG 85.7 mmHg (80.0-100.0); PO2 FiO2 Ratio Arterial Blood 3.43 %; Reduced Hemoglobin 3.5 %THb (0-5.0); Total Hemoglobin 9.8 g/dL (12.0-18.0); pH ABG 7.409 (7.350-7.450)
[2024-08-13 05:59] LABS: Device VENTILATOR; Modified Allen's Test Pass; Site Drawn RIGHT RADIAL
[2024-08-13 06:00] LABS: Arterial Blood Gas PEEP 5 cmH2O; Arterial Blood Gas Vent Mode CMV; Arterial Blood Gas Ventilator rate 12 /MIN
[2024-08-13 06:01] LABS: Arterial Blood Gas Tidal Volume 500 ml
[2024-08-13] MEDS: CENTRAL LINE FLUSH 10 ML IV PUSH ×3 (06:05→20:11)
[2024-08-13] MEDS: HYDROCORTISONE SODIUM SUCCINATE 100 MG/2 ML VIAL IV PUSH (06:05)
[2024-08-13] MEDS: CALCIUM GLUC 2,000 MG/NS 100ML 2,000 MG/100 ML BAG 100 MG IVPB (07:37)
[2024-08-13] MEDS: POTASSIUM CHLORIDE 20 MEQ PACKET (FOR LIQUID) 40 MEQ FEED TUBE (07:38)
[2024-08-13] MEDS: POTASSIUM/PHOSPHORUS/SODIUM 1.5 GM PACKET 1 PACKET PO (07:38)
--- NOTE | 2024-08-13 07:56 | P.PNINT_ITS ---
Progress Note: A&P Assessment and Plan (1) Septic shock: Code(s): A41.9 - Sepsis, unspecified organism; R65.21 - Severe sepsis with septic shock Status: Acute Assessment and Plan: 08/11: Patient admitted with SVT, status post cardioversion by EMS. Was found down at home, with vomit on himself, respiratory distress, -patient was found to be hypotensive, likely related to septic shock, SVT, aspiration pneumonia, UTI -patient was given 1 L IV fluid bolus in the ER, will give additional IV fluid bolus in the ICU given history of cardiomyopathy with EF of 35-40% -OFF ALL PRESSORS -wean stress dose steroid -08/11: Blood cultures growing Gram-negative bacilli 04/18 bottles -08/11: Urine cultures growing Gram-negative bacilli -08/11: Sputum cultures growth of normal oropharyngeal bambi 08/12: Left knee aspiration culture, no organism seen, cultures pending -continue cefepime, vancomycin, doxycycline (08/11) -08/12: Flagyl discontinued -acute renal failure with improvement in creatinine urine output, continue to monitor (2) Acute respiratory failure: Code(s): J96.00 - Acute respiratory failure, unspecified whether with hypoxia or hypercap glendy Status: Acute Assessment and Plan: Acute respiratory failure could be related to SVT, hypotension, septic shock, aspiration pneumonia, UTI -08/11: was intubated in the ED -remains on CMV mode of ventilation, peep of 5, 40% FiO2 -chest x-ray and ABGs reviewed, ventilator adjusted, wean FiO2 to maintain O2 sats> 92% -sedated with fentanyl and Versed infusion, maintain RASS of 0 to -2 -daily SBT and SAT -have asked the bedside RN to decrease sedation wake up patient, place patient on SBT and evaluate for extubation -continue DuoNeb -DC IV fluids, may require diuretic prior to extubation (3) Acute alteration in mental status: Code(s): R41.82 - Altered mental status, unspecified Status: Acute Assessment and Plan: Likely related to hypotension, SVT, infection -will treat underlying cause -CT scan of the brain did not show any acute intracranial abnormality -08/12: Patient more alert and awake this morning and follows simple commands and nods to questions (4) Pneumonia: Code(s): J18.9 - Pneumonia, unspecified organism Status: Acute Assessment and Plan: Pneumonia as seen on CT scan of the chest abdomen pelvis -antibiotics as above -patient was negative for influenza, RSV and SARS-CoV-2 PCR -08/11: urine Legionella and urine pneumococcal antigens pending 08/11: CT scan of the chest/abdomen/pelvis showed left lower lobe consolidation and right basal atelectasis, no all or solid organ injury, no acute fracture. (5) UTI (urinary tract infection): Qualifiers: Urinary tract infection type: acute cystitis Hematuria presence: without hematuria Qualified Code(s): N30.00 - Acute cystitis without hematuria Code(s): N39.0 - Urinary tract infection, site not specified Status: Acute Assessment and Plan: UA was reflective of UTI -patient has a history of UTI with Pseudomonas (05/16/2024) which was resistant to fluoroquinolones -continue antibiotics as above -urine cultures growing Gram-negative bibasilar (6) Systolic heart failure: Qualifiers: Heart failure chronicity: chronic Qualified Code(s): I50.22 - Chronic systolic (congestive) heart failure Code(s): I50.20 - Unspecified systolic (congestive) heart failure Status: Chronic Assessment and Plan: Patient with systolic heart failure with a EF of 35-40% Patient has been on GDMT, will hold for now as patient on pressors Discontinue IV fluids 05/15/2024: Echocardiogram Summary 1. Complete two-dimensional, color flow and Doppler transthoracic echocardiogram is performed. 2. Left ventricular chamber dimension is mildly enlarged. 3. Left ventricular systolic function is moderately reduced, estimated at 35-40%. 4. There is mildly increased left ventricular wall thickness. 5. The left ventricular diastolic function is abnormal. 6. Left atrial chamber dimension is severely enlarged. 7. Right atrial chamber dimension is mildly enlarged. 8. There is moderate to severe mitral valve regurgitation. 9. There is mild tricuspid valve regurgitation. 10. Severe pulmonary hypertension, estimated pulmonary arterial systolic pressure is 72 mmHg. 11. There is mild pulmonic regurgitation. 12. Pleural effusion seen. (7) Pulmonary hypertension: Code(s): I27.20 - Pulmonary hypertension, unspecified Status: Acute Assessment and Plan: Severe pulmonary hypertension (8) Mitral regurgitation: Code(s): I34.0 - Nonrheumatic mitral (valve) insufficiency Status: Acute Assessment and Plan: Moderate to severe mitral valve regurg, -caution with IV fluids (9) SVT (supraventricular tachycardia): Code(s): I47.10 - Supraventricular tachycardia, unspecified Status: Acute Assessment and Plan: Patient presented with SVT, was cardioverted by EMS according the triage note, heart rates were in the 160s to 240s, with hemodynamic instability -patient does have a history of AFib RVR on Eliquis at home -restarted Eliquis on admission (10) Acute kidney injury: Code(s): N17.9 - Acute kidney failure, unspecified Status: Acute Assessment and Plan: Acute kidney injury, likely septic shock, hypotension, ATN,, rhabdomyolysis -baseline creatinine is 0.50-0.80 -creatinine this admission is 1.70 -patient has received adequate amount of IV fluids -monitor urine output, renal function electrolytes -urine lytes did not reveal prerenal picture - urine eosinophils were negative, CK levels were 1099 -028: Renal ultrasound: No hydronephrosis or renal calculi -creatinine has normalized, adequate urine output (11) Atrial fibrillation with rapid ventricular response: Code(s): I48.91 - Unspecified atrial fibrillation Status: Acute Assessment and Plan: On Eliquis at home, will continue -currently rate controlled in sinus rhythm -continue to monitor (12) Swollen L knee: Code(s): M25.462 - Effusion, left knee Status: Acute Assessment and Plan: Swelling of the left knee with bogginess, fluctuation, warmth, likely septic joint -continue antibiotics 08/12: Appreciate orthopedic evaluation and recommendations, left knee aspiration was performed, sent for Gram stain and culture which are pending 08/11/2024: CT scan of the left knee IMPRESSION: Postoperative changes in the patella with destructive changes and fragmentation. multilocular abscess seen in the suprapatellar bursa. Synovitis seen in the left knee joint (13) Ankle fracture, left: Qualifiers: Encounter type: initial encounter Fracture type: closed Qualified Code(s): S82.892A - Other fracture of left lower leg, initial encounter for closed fracture Code(s): S82.892A - Other fracture of left lower leg, initial encounter for closed fracture Status: Acute Assessment and Plan: Left ankle swelling X-ray of the left ankle showed fracture of the lateral malleolus Appreciate orthopedic evaluation and recommendations, ice pack and elevated. Once he is more stable they recommended a fracture boot for out of bed with protected weight-bearing. -once he is extubated will get PT/OT to evaluate the patient Plan DVT prophylaxis: Apixaban Stress ulcer prophylaxis: Protonix Nutrition: The patient extubated will start tube feed Code Status: Full code Critical Care Time Spent: 32 minutes Discussed with patient's mother and updated with patient's condition and plan of care. Due to a high probability of clinically significant, life threatening deterioration, the patient required my highest level of preparedness to intervene emergently and I personally spent this critical care time directly and personally managing the patient. This critical care time included obtaining a history; examining the patient; pulse oximetry; ordering and review of studies; arranging urgent treatment with development of a management plan; evaluation of patient's response to treatment; frequent reassessment; and discussions with other providers. It was exclusive of separately billable procedures and treating other patients and teaching time. Please see Assessment and Plan section and the rest of the note for further information on patient assessment and treatment This dictation may have been done utilizing a voice recognition system. Attempts have been made to correct errors. However, there may be uncorrected grammatical, spelling, and recognitions errors present. Subjective Date/time seen: 08/13/24 07:56 Interval history: Reason for consult: Acute respiratory failure, septic shock, pneumonia, SVT, fall, altered mental status, left ankle fracture, left knee swelling 08/11: Intubated 08/12: Status post aspiration of the left knee effusion 08/14/2023: Patient seen and examined the ICU, remains intubated on CMV mode of ventilation, peep of 5, 25% FiO2. Sedated with fentanyl and Versed infusion, does not open his eyes this morning of follows simple commands patient is off all pressors. Adequate urine output, afebrile, hemodynamically stable Review of Systems Review of Systems: ROS unobtainable: Yes unobtainable due to endotracheal tube, unobtainable due to medical condition and unobtainable due to mental status Exam Narrative: General: Patient intubated, sedated, in no acute distress HEENT:? Pupils equal and reactive, sclera is clear, ETT in place Neck:? Supple Respiratory:? Coarse breath sounds bilaterally especially at bases, otherwise no wheezing, adequate air entry and clear to auscultation Cardiac:? S1-S2 normal, regular rate and rhythm Abdomen:? Soft, nontender, nondistended, hypoactive bowel sounds Extremities:? Left knee is less swollen, with ecchymosis seems to have improved, Left ankle swollen and warm Neuro:? Patient is intubated, sedated, does not open his eyes, or follow simple commands Skin:? Will warm and dry Psych:? Unable to assess at this time Objective Data Vital Signs Vital Signs: Vital Signs - 24 hr 08/12/24 08:00 08/12/24 08:00 08/12/24 08:00 Temperature 96.7 F L Pulse Rate 69 62 62 Respiratory Rate 23 H 14 Blood Pressure 103/70 Pulse Oximetry 99 99 Oxygen Delivery Mechanical Ventilation Fraction of Inspired Oxygen 40 08/12/24 08:00 08/12/24 08:00 08/12/24 08:00 Temperature Pulse Rate 73 66 Respiratory Rate 12 Blood Pressure 103/70 Pulse Oximetry Oxygen Delivery Fraction of Inspired Oxygen 35 08/12/24 08:00 08/12/24 08:08 08/12/24 08:16 Temperature Pulse Rate 66 74 62 Respiratory Rate 12 14 Blood Pressure Pulse Oximetry 99 Oxygen Delivery Mechanical Ventilation Fraction of Inspired Oxygen 35 08/12/24 09:30 08/12/24 10:00 08/12/24 10:00 Temperature 96.8 F L Pulse Rate 68 66 68 Respiratory Rate 12 Blood Pressure 104/63 104/65 103/61 Pulse Oximetry 98 Oxygen Delivery Fraction of Inspired Oxygen 08/12/24 10:00 08/12/24 10:00 08/12/24 10:00 Temperature Pulse Rate 65 66 66 Respiratory Rate 12 12 Blood Pressure Pulse Oximetry Oxygen Delivery Fraction of Inspired Oxygen 08/12/24 10:59 08/12/24 12:00 08/12/24 12:00 Temperature 96.8 F L Pulse Rate 67 66 65 Respiratory Rate 12 12 Blood Pressure 108/64 Pulse Oximetry 98 98 98 Oxygen Delivery Mechanical Ventilation Mechanical Ventilation Fraction of Inspired Oxygen 35 35 08/12/24 12:00 08/12/24 12:00 08/12/24 12:00 Temperature Pulse Rate 65 65 Respiratory Rate Blood Pressure 109/69 Pulse Oximetry Oxygen Delivery Fraction of Inspired Oxygen 35 08/12/24 12:00 08/12/24 12:00 08/12/24 14:00 Temperature Pulse Rate 62 62 64 Respiratory Rate 12 12 Blood Pressure 111/72 Pulse Oximetry Oxygen Delivery Fraction of Inspired Oxygen 08/12/24 14:00 08/12/24 14:00 08/12/24 14:00 Temperature 97.1 F L Pulse Rate 65 65 64 Respiratory Rate 12 12 12 Blood Pressure 111/72 Pulse Oximetry 98 Oxygen Delivery Fraction of Inspired Oxygen 08/12/24 14:00 08/12/24 15:07 08/12/24 15:08 Temperature Pulse Rate 65 68 66 Respiratory Rate 13 Blood Pressure Pulse Oximetry 97 Oxygen Delivery Mechanical Ventilation Fraction of Inspired Oxygen 35 08/12/24 16:00 08/12/24 16:00 08/12/24 16:00 Temperature Pulse Rate 80 71 71 Respiratory Rate 12 12 Blood Pressure 125/75 Pulse Oximetry Oxygen Delivery Fraction of Inspired Oxygen 08/12/24 16:00 08/12/24 16:00 08/12/24 16:00 Temperature Pulse Rate 71 71 Respiratory Rate 12 Blood Pressure Pulse Oximetry 97 Oxygen Delivery Mechanical Ventilation Fraction of Inspired Oxygen 35 35 08/12/24 16:00 08/12/24 16:00 08/12/24 17:29 Temperature 97.8 F 97.4 F L Pulse Rate 71 73 73 Respiratory Rate 12 12 Blood Pressure 125/75 119/72 Pulse Oximetry 97 97 97 Oxygen Delivery Mechanical Ventilation Fraction of Inspired Oxygen 35 08/12/24 18:00 08/12/24 18:00 08/12/24 18:00 Temperature Pulse Rate 72 70 70 Respiratory Rate 12 12 Blood Pressure 124/80 Pulse Oximetry Oxygen Delivery Fraction of Inspired Oxygen 08/12/24 18:00 08/12/24 18:00 08/12/24 18:35 Temperature 97.9 F Pulse Rate 69 70 69 Respiratory Rate 12 Blood Pressure 124/76 123/71 Pulse Oximetry 97 Oxygen Delivery Fraction of Inspired Oxygen 08/12/24 18:45 08/12/24 19:26 08/12/24 19:26 Temperature Pulse Rate 69 71 71 Respiratory Rate 12 Blood Pressure 120/74 119/77 119/77 Pulse Oximetry 97 Oxygen Delivery Fraction of Inspired Oxygen 08/12/24 19:30 08/12/24 19:30 08/12/24 19:38 Temperature 98 F Pulse Rate 72 72 77 Respiratory Rate 12 14 Blood Pressure 110/66 110/66 Pulse Oximetry 97 Oxygen Delivery Fraction of Inspired Oxygen 08/12/24 19:43 08/12/24 19:44 08/12/24 19:45 Temperature 98.1 F Pulse Rate 77 75 75 Respiratory Rate 13 12 Blood Pressure 110/65 Pulse Oximetry 99 96 Oxygen Delivery Mechanical Ventilation Fraction of Inspired Oxygen 30 08/12/24 20:00 08/12/24 20:00 08/12/24 20:00 Temperature Pulse Rate 83 83 Respiratory Rate 14 14 Blood Pressure Pulse Oximetry 97 Oxygen Delivery Mechanical Ventilation Fraction of Inspired Oxygen 35 08/12/24 20:00 08/12/24 20:00 08/12/24 20:00 Temperature 98.1 F Pulse Rate 83 84 Respiratory Rate 14 Blood Pressure 111/60 Pulse Oximetry 97 Oxygen Delivery Fraction of Inspired Oxygen 35 08/12/24 20:15 08/12/24 20:15 08/12/24 20:30 Temperature Pulse Rate 84 85 87 Respiratory Rate 13 12 Blood Pressure 113/65 113/65 98/54 L Pulse Oximetry 97 97 Oxygen Delivery Fraction of Inspired Oxygen 08/12/24 20:45 08/12/24 20:45 08/12/24 21:00 Temperature Pulse Rate 85 87 88 Respiratory Rate 16 16 14 Blood Pressure 99/55 L Pulse Oximetry 95 Oxygen Delivery Fraction of Inspired Oxygen 08/12/24 21:00 08/12/24 21:15 08/12/24 22:00 Temperature 98 F 98 F Pulse Rate 88 86 75 Respiratory Rate 13 12 Blood Pressure 121/58 L 101/55 L Pulse Oximetry 96 94 Oxygen Delivery Fraction of Inspired Oxygen 08/12/24 22:00 08/12/24 22:00 08/12/24 22:00 Temperature 98.2 F Pulse Rate 75 75 75 Respiratory Rate 13 13 Blood Pressure 102/59 L 102/59 L Pulse Oximetry 96 Oxygen Delivery Fraction of Inspired Oxygen 08/12/24 22:00 08/12/24 22:45 08/12/24 22:45 Temperature Pulse Rate 75 94 93 Respiratory Rate 13 Blood Pressure 123/74 Pulse Oximetry 97 Oxygen Delivery Mechanical Ventilation Fraction of Inspired Oxygen 08/12/24 23:00 08/12/24 23:15 08/12/24 23:30 Temperature 98.2 F 98.1 F 98.1 F Pulse Rate 98 97 88 Respiratory Rate 17 15 14 Blood Pressure 117/70 116/68 108/65 Pulse Oximetry 95 95 94 Oxygen Delivery Fraction of Inspired Oxygen 05/29/25 23:46 08/13/24 00:00 08/13/24 00:00 Temperature 98.1 F Pulse Rate 80 Respiratory Rate 19 Blood Pressure 104/63 Pulse Oximetry 96 96 Oxygen Delivery Mechanical Ventilation Fraction of Inspired Oxygen 08/13/24 00:00 08/13/24 00:00 08/13/24 00:00 Temperature 98.2 F Pulse Rate 77 77 77 Respiratory Rate 18 Blood Pressure 101/60 101/60 Pulse Oximetry 96 Oxygen Delivery Fraction of Inspired Oxygen 08/13/24 00:00 08/13/24 00:00 08/13/24 01:31 Temperature Pulse Rate 77 77 83 Respiratory Rate 18 18 19 Blood Pressure Pulse Oximetry Oxygen Delivery Fraction of Inspired Oxygen 08/13/24 02:00 08/13/24 02:00 08/13/24 02:00 Temperature 98.8 F Pulse Rate 83 83 83 Respiratory Rate 18 Blood Pressure 107/64 107/64 Pulse Oximetry 96 Oxygen Delivery Fraction of Inspired Oxygen 08/13/24 02:00 08/13/24 02:00 08/13/24 02:28 Temperature Pulse Rate 83 83 75 Respiratory Rate 18 18 14 Blood Pressure Pulse Oximetry Oxygen Delivery Fraction of Inspired Oxygen 08/13/24 02:29 08/13/24 02:33 08/13/24 03:13 Temperature Pulse Rate 94 77 106 H Respiratory Rate 13 23 H Blood Pressure Pulse Oximetry 96 Oxygen Delivery Mechanical Ventilation Fraction of Inspired Oxygen 08/13/24 03:13 08/13/24 03:22 08/13/24 03:22 Temperature Pulse Rate 106 H 100 100 Respiratory Rate 23 H 19 19 Blood Pressure Pulse Oximetry Oxygen Delivery Fraction of Inspired Oxygen 08/13/24 04:00 08/13/24 04:00 08/13/24 04:00 Temperature Pulse Rate 100 Respiratory Rate 22 H Blood Pressure Pulse Oximetry 96 Oxygen Delivery Mechanical Ventilation Fraction of Inspired Oxygen 08/13/24 04:00 08/13/24 04:00 08/13/24 04:00 Temperature 99.1 F Pulse Rate 92 92 92 Respiratory Rate 15 15 Blood Pressure 129/54 L Pulse Oximetry 92 Oxygen Delivery Fraction of Inspired Oxygen 08/13/24 04:00 08/13/24 04:03 08/13/24 04:05 Temperature Pulse Rate 92 101 H 96 Respiratory Rate 20 20 Blood Pressure 129/54 L Pulse Oximetry Oxygen Delivery Fraction of Inspired Oxygen 08/13/24 04:21 08/13/24 04:21 08/13/24 06:00 Temperature Pulse Rate 83 83 78 Respiratory Rate 13 13 Blood Pressure Pulse Oximetry Oxygen Delivery Fraction of Inspired Oxygen 08/13/24 06:00 08/13/24 06:00 08/13/24 06:00 Temperature 99.5 F Pulse Rate 78 78 78 Respiratory Rate 14 14 Blood Pressure 115/74 115/74 Pulse Oximetry 95 Oxygen Delivery Fraction of Inspired Oxygen 08/13/24 06:00 08/13/24 06:01 08/13/24 06:15 Temperature Pulse Rate 78 78 74 Respiratory Rate 14 16 Blood Pressure Pulse Oximetry 95 Oxygen Delivery Mechanical Ventilation Fraction of Inspired Oxygen 08/13/24 06:15 Temperature Pulse Rate 78 Respiratory Rate 16 Blood Pressure Pulse Oximetry Oxygen Delivery Fraction of Inspired Oxygen Intake/Output Intake/Output: Intake & Output 08/10/24 08/11/24 08/12/24 08/13/24 23:59 23:59 23:59 23:59 Intake Total 4698.0 5982.7 503.0 Output Total 500 2200 570 Balance 4198.0 3782.7 -67.0 Meds/Results Medications: Active Medications Generic Name Dose Route Start Last Admin Trade Name Freq PRN Reason Stop Dose Admin Acetaminophen 650 mg 08/11/24 12:28 Acetaminophen 650 Mg Suppository RECTAL Q6H PRN Mild Pain (1-3) or Fever Albuterol/Ipratropium 3 ml 08/11/24 14:15 08/13/24 02:28 Ipratropium 0.5 Mg/Albuterol Sulfate 2.5 Mg Ampul.Neb 3 Ml INHALATION 3 ml Q6HRT DAKSHA Administration Apixaban 5 mg 08/11/24 21:00 08/12/24 20:15 Apixaban 5 Mg Tablet PO 5 mg Q12HR DAKSHA Administration Dextrose 12.5 gm 08/11/24 14:25 Dextrose 50% 25 Gm/50 Ml Syringe IV PUSH PRN PRN Hypoglycemia Protocol Glucagon 1 mg 08/11/24 14:25 Glucagon For Inj 1 Mg Vial IM PRN PRN Hypoglycemia Protocol Glucose 15 gm 08/11/24 14:25 Glucose Oral Gel 15 Gm Of Glucse In 37.5 Gm Tube PO PRN PRN Hypoglycemia Protocol Hydrocortisone Sodium Succinate 50 mg 08/13/24 18:00 Hydrocortisone Sodium Succinate 100 Mg/2 Ml Vial IV PUSH 08/14/24 18:01 Q12H DAKSHA Doxycycline Hyclate 100 mg in 100 mls @ 100 mls/hr 08/11/24 14:00 08/13/24 02:47 Vibramycin 100 Mg/Ns 100 Ml IVPB Infused Q12H DAKSHA Infusion Dextrose 1,000 mls @ 100 mls/hr 08/11/24 14:25 Dextrose 5% 1,000 Ml IVPB PRN PRN Hypoglycemia Protocol Vancomycin HCl 1,250 mg in 250 mls @ 166.667 mls/hr 08/12/24 10:00 08/12/24 23:52 Vancomycin 1,250 Mg/Ns 250 Ml IVPB Infused Q12H DAKSHA Infusion Cefepime HCl 2 gm in 50 mls @ 100 mls/hr 08/12/24 10:00 08/13/24 02:17 Maxipime 2 Gm/Ns 50 Ml IVPB Infused Q8H DAKSHA Infusion Midazolam HCl 100 mg in 100 mls @ 3 mls/hr 08/13/24 03:20 08/13/24 06:15 Versed 100 Mg/Ns 100 Ml IV CONT 3 mg/hr .[id number] DAKSHA 3 mls/hr Titration Protocol 3 MG/HR Fentanyl Citrate 2,500 mcg in 250 mls @ 12.5 mls/hr 08/13/24 04:20 08/13/24 06:15 Fentanyl 2,500 Mcg/Ns 250 Ml IV CONT 125 mcg/hr .Q20H DAKSHA 12.5 mls/hr Titration Protocol 125 MCG/HR Magnesium Sulfate 2 gm in 50 mls @ 50 mls/hr 08/13/24 07:08 Magnesium Sulf 2 Gm/Water 50ml IVPB 08/13/24 08:07 ONCE ONE Calcium Gluconate 2,000 mg in 100 mls @ 100 mls/hr 08/13/24 07:08 08/13/24 07:37 Calcium Gluc 2,000 Mg/Ns 100ml IVPB 08/13/24 08:07 100 mls/hr ONCE ONE Administration Multi-Ingred Cream/Lotion/Oil/Oint 1 applic 08/13/24 09:00 Mineral Oil/White Petrolatum Ointment EACH EYE Q12HR [facility] Pantoprazole Sodium 40 mg 08/11/24 14:05 08/12/24 08:48 Pantoprazole Sodium Iv 40 Mg Vial IV PUSH 40 mg QAM DAKSHA Administration Sodium Chloride 10 ml 08/11/24 14:00 08/13/24 06:05 Central Line Flush IV PUSH 10 ml Q8HR DAKSHA Administration Sodium Chloride 20 ml 08/11/24 13:52 Central Line Flush IV PUSH PRN PRN after blood draws Radiology Results: ITS Impressions Head CT 08/11/24 11:35 Impression: No acute abnormality. Chronic findings, as detailed above. Chest/Abdomen/Pelvis CT 08/11/24 11:39 IMPRESSION: Left lower lobe consolidation and right basilar atelectasis. No hollow or solid organ injury. No acute fractures. Venous Doppler Study 08/11/24 15:11 IMPRESSION: 1: No lower extremity deep venous thrombosis. Renal Ultrasound 08/11/24 15:22 IMPRESSION: No hydronephrosis or renal calculi. Examination is unchanged from CT study performed 3 hours earlier Ankle X-Ray 08/11/24 18:33 IMPRESSION: Fracture of the lateral malleolus. Knee CT 08/11/24 19:16 IMPRESSION: Postoperative changes in the patella with destructive changes and fragmentation. multilocular abscess seen in the suprapatellar bursa. Synovitis seen in the left knee joint. was notified with the result of the patient at 7:35 PM on August 11, 2024. Chest X-Ray 08/13/24 06:31 Impression: Small left pleural effusion with probable mild bibasilar pulmonary edema. NG tube tip is at the GE junction. Further advancement into the stomach recommended. Additional support tubes in place, as above. Labs Labs: Laboratory Results - last 24 hr 08/12/24 08/12/24 08/12/24 04:52 11:15 17:27 WBC RBC Hgb Hct MCV MCH MCHC RDW Plt Count MPV Immature Gran % (Auto) Neut % (Auto) Lymph % (Auto) [place] % (Auto) Eos % (Auto) Baso % (Auto) Lymph # (Auto) [place] # (Auto) Eos # (Auto) Baso # (Auto) Abs Immat Gran (auto) Absolute Neuts (auto) Absolute Nucleated RBC Total Counted Neutrophils % (Manual) Band Neutrophils % Lymphocytes % (Manual) Monocytes % (Manual) Nucleated RBC % Abs Neuts (Manual) Abs Lymphs (Manual) Abs Monocytes (Manual) Platelet Estimate Anisocytosis Ovalocytes Schistocytes Puncture Site ABG pH ABG pCO2 ABG pO2 ABG PO2/FiO2 Ratio ABG HCO3 ABG O2 Saturation ABG O2 Content ABG Base Excess A-a Gradient Oxyhemoglobin Carboxyhemoglobin Methemoglobin Reduced Hemoglobin Total Hemoglobin O2 Delivery Device O2 Liters/Min Minute Volume Vent Rate Vent Mode FiO2 Tidal Volume PEEP Peak Inspir Pressure Pressure Support Sodium Potassium Chloride Carbon Dioxide Anion Gap BUN Creatinine Estim Creat Clear Calc Estimated GFR Glucose POC Capillary Glucose 123 H 125 H Lactic Acid Calcium Phosphorus Magnesium Total Bilirubin AST ALT Alkaline Phosphatase Total Protein Albumin Ur Random Sodium 57 Urine Creatinine 73.0 08/12/24 08/13/24 08/13/24 23:29 04:09 05:28 WBC 21.8 H RBC 2.87 L Hgb 9.0 L Hct 27.8 L MCV 96.9 MCH 31.4 MCHC 32.4 RDW 14.9 H Plt Count 149 L MPV 10.0 Immature Gran % (Auto) Not Reportable Neut % (Auto) Not Reportable Lymph % (Auto) Not Reportable [place] % (Auto) Not Reportable Eos % (Auto) Not Reportable Baso % (Auto) Not Reportable Lymph # (Auto) Not Reportable [place] # (Auto) Not Reportable Eos # (Auto) Not Reportable Baso # (Auto) Not Reportable Abs Immat Gran (auto) Not Reportable Absolute Neuts (auto) Not Reportable Absolute Nucleated RBC Not Reportable Total Counted 100 Neutrophils % (Manual) 89 H Band Neutrophils % 5 Lymphocytes % (Manual) 2 L Monocytes % (Manual) 4 Nucleated RBC % Not Reportable Abs Neuts (Manual) 20.49 H Abs Lymphs (Manual) 0.43 L Abs Monocytes (Manual) 0.87 Platelet Estimate Adequate Anisocytosis 1+ Ovalocytes 1+ Schistocytes None seen Puncture Site Right radial ABG pH 7.409 ABG pCO2 32.2 L ABG pO2 85.7 ABG PO2/FiO2 Ratio 3.43 ABG HCO3 19.9 L ABG O2 Saturation 96.7 ABG O2 Content 13.3 L ABG Base Excess -4.1 A-a Gradient 54.3 Oxyhemoglobin 95.9 Carboxyhemoglobin 0.3 Methemoglobin 0.3 Reduced Hemoglobin 3.5 Total Hemoglobin 9.8 L O2 Delivery Device Ventilator O2 Liters/Min Not Reportable Minute Volume Not Reportable Vent Rate 12 Vent Mode Cmv FiO2 25 Tidal Volume 500 PEEP 5 Peak Inspir Pressure Not Reportable Pressure Support Not Reportable Sodium 140 Potassium 3.5 Chloride 109 H Carbon Dioxide 21 L Anion Gap 10 BUN 13 Creatinine 0.61 L Estim Creat Clear Calc 132 Estimated GFR > 60 Glucose 112 H POC Capillary Glucose 115 H Lactic Acid 1.6 Calcium 7.8 L Phosphorus 1.9 L Magnesium 1.8 Total Bilirubin 0.6 AST 108 H ALT 45 Alkaline Phosphatase 45 Total Protein 6.0 L Albumin 3.8 Ur Random Sodium Urine Creatinine Quality VTE Prophylaxis VTE prophylaxis: pharmacologic ordered
[2024-08-13] MEDS: MAGNESIUM SULF 2 GM/WATER 50ML 2 GM/50 ML BAG IVPB (08:01)
[2024-08-13 08:49] LABS: Creatine Kinase 1978 U/L (55-170)
[2024-08-13] MEDS: MINERAL OIL/WHITE PETROLATUM OINTMENT 1 APPLIC EACH EYE (08:57)
[2024-08-13] MEDS: APIXABAN 5 MG TABLET PO ×2 (08:57→20:09)
[2024-08-13] MEDS: PANTOPRAZOLE SODIUM IV 40 MG VIAL IV PUSH (08:57)
[2024-08-13 09:25] LABS: Triglycerides 99 mg/dL (<150)
[2024-08-13 09:30] LABS: Vancomycin Trough 13.1 ug/mL (10.0-20.0)
[2024-08-13] MEDS: VANCOMYCIN 1,250 MG/NS 250 ML 1,250 MG/250 ML BAG 166 MG IVPB (09:52)
--- NOTE | 2024-08-13 10:30 | PCNFU ---
Nutrition Follow-Up Complete: Suboptimal Energy Intake as related to mechanical ventilation as evidenced by NPO Goal: Meet estimated nutritional needs. Patient will continue current goal. Pt current nutrition is NPO. Nutrition recommendation: Vital AF 1.2 at 20 ml/hr advance by 10 ml q 4 hours to 60 ml/hr. Last recorded weight is 84.7 kg, up from from 83.4 kg. Bowel Motility: +BM reported 08/11 Labs Reviewed: PO4 1.9, Cr 0.61, Glu 112 Meds Noted: Fentanyl, Versed,Protonix, Lasix Skin: WNL Additional Notes:Patient remains on mechanical vent. Discussions in rounds today regarding breathing trial and extubated. If patient is unable to come off breathing trial recommendations have been made for tube feedings. Will monitor weight, labs, skin, diet orders, meds every Friday and Friday.
[2024-08-13] MEDS: FUROSEMIDE INJ 40 MG/4 ML VIAL IV PUSH (10:50)
[2024-08-13 11:25] LABS: Glucose Point of Care 123 mg/dl (65-105)
[2024-08-13] MEDS: dexmedeTOMIDine 400 MCG/100 ML 400 MCG/100 ML BAG IV CONT (11:35)
[2024-08-13 11:58] LABS: Chloride Rand Ur 67 mmol/L (32-290); Chloride/Creatinine Rand Ur 88 (23-275); Creatinine Random Urine 76 mg/dL (20-320)
[2024-08-13] MEDS: HYDROCORTISONE SODIUM SUCCINATE 100 MG/2 ML VIAL 50 MG IV PUSH (17:50)
[2024-08-13 18:02] LABS: Glucose Point of Care 107 mg/dl (65-105)
[2024-08-13 23:42] LABS: Glucose Point of Care 133 mg/dl (65-105)
[2024-08-14] VITALS (29 sets, daily range): BP systolic 119–172; BP diastolic 76–103; PULSE 59–102; RESP 11–21; TEMP 36.9–37.7; O2SAT 92–97
[2024-08-14] MEDS: dexmedeTOMIDine 400 MCG/100 ML 400 MCG/100 ML BAG 12.71 MCG IV CONT (00:14)
[2024-08-14] MEDS: IPRATROPIUM 0.5 MG/ALBUTEROL SULFATE 2.5 MG AMPUL.NEB 3 ML INHALATION ×4 (02:07→20:01)
[2024-08-14] MEDS: CEFEPIME 2 GM/NS 50 ML 2 GM/50 ML BAG IVPB (02:12)
[2024-08-14 04:39] LABS: Alveolar/Arterial O2 Gradient 75.4 mmHg; Base Excess ABG -2.4 mEq/l (+/-2.0); Fractional Inspired Oxygen 25 %; HCO3 ABG 19.5 mEq/l (22.0-26.0); Oxygen Content ABG 15.5 %vol (16.0-22.0); Oxygen Saturation ABG 96.1 % (95.0-100.0); Oxyhemoglobin 94.2 % THb (90.0-100.0); PCO2 ABG 25.5 mmHg (35.0-45.0); PO2 ABG 72.6 mmHg (80.0-100.0); Total Hemoglobin 11.7 g/dL (12.0-18.0)
[2024-08-14 04:40] LABS: Device VENTILATOR; Modified Allen's Test Pass; Site Drawn LEFT RADIAL; pH ABG 7.501 (7.350-7.450)
[2024-08-14 04:41] LABS: Arterial Blood Gas PEEP 5 cmH2O; Arterial Blood Gas Vent Mode ASV
[2024-08-14 04:42] LABS: Basophils Absolute Auto 0.1 K/mm3 (0.0-0.1); Basophils Percent Auto 0.3 % (0.2-1.2); Eosinophils Percent Auto 0.1 % (0-4.4); Hemoglobin 10.9 g/dL (14.0-18.0); Immature Granulocyte Absolute 0.15 K/mm3 (0.00-0.031); Immature Granulocyte Percent A 0.8 % (0-0.5); Lymphocytes Absolute Auto 1.96 K/mm3 (0.9-3.2); Lymphocytes Percent Auto 10.8 % (18.3-44.2); Mean Corpuscular Hemoglobin 31.5 pg (26-34); Mean Corpuscular Volume 95.4 fl (80-100); Mean Platelet Volume 10.3 fl (7.4-10.4); Monocytes Absolute Auto 1.3 K/mm3 (0.1-0.6); Neutrophils Absolute Auto 14.7 K/mm3 (1.3-6.7); Platelet Count Result 173 k/mm3 (150-375); Red Blood Count 3.46 M/mm3 (4.6-6.20); Red Cell Distribution Width 14.9 % (11.5-14.5); White Blood Count 18.2 K/mm3 (4.5-10.0)
[2024-08-14 05:19] LABS: Alanine Aminotransferase 51 U/L (6-50); Albumin Level 3.9 g/dL (3.5-5.1); Alkaline Phosphatase 53 U/L (38-126); Anion Gap 7 mmol/L (4-12); Aspartate Amino Transferase 90 U/L (17-59); Bilirubin,Total 0.7 mg/dL (0.2-1.3); Blood Urea Nitrogen 25 mg/dL (9-20); Calcium 9.1 mg/dL (8.4-10.2); Carbon Dioxide 22 mmol/L (22-30); Chloride 112 mmol/L (98-107); Estimated CRCL calculation 98 ml/min; Estimated Glomerular Filt Rate > 60; Glucose 118 mg/dL (65-110); Magnesium 2.3 mg/dL (1.6-2.3); Phosphorus 1.5 mg/dL (2.5-4.5); Potassium 3.2 mmol/L (3.4-5.0); Sodium 141 mmol/L (137-145)
[2024-08-14] MEDS: HYDROCORTISONE SODIUM SUCCINATE 100 MG/2 ML VIAL 50 MG IV PUSH ×2 (05:42→17:24)
[2024-08-14] MEDS: CENTRAL LINE FLUSH 10 ML IV PUSH ×3 (05:45→20:04)
--- NOTE | 2024-08-14 08:18 | P.PNINT_ITS ---
Progress Note: A&P Assessment and Plan (1) Septic shock: Code(s): A41.9 - Sepsis, unspecified organism; R65.21 - Severe sepsis with septic shock Status: Acute Assessment and Plan: 08/11: Patient admitted with SVT, status post cardioversion by EMS. Was found down at home, with vomit on himself, respiratory distress, -patient was found to be hypotensive, likely related to septic shock, SVT, aspiration pneumonia, UTI -patient was given 1 L IV fluid bolus in the ER, will give additional IV fluid bolus in the ICU given history of cardiomyopathy with EF of 35-40% -OFF ALL PRESSORS -wean stress dose steroid -08/11: Blood cultures growing ESBL Klebsiella resistant to cefepime -08/11: Urine cultures growing ESBL Klebsiella -08/11: Sputum cultures growth of normal oropharyngeal bambi -08/12: Left knee aspiration culture, no growth 08/13: Repeat blood culture: Pending (08/11) -08/12: Flagyl discontinued -08/13: Doxycycline Discontinued -08/14: Will discontinue cefepime as ESBL Klebsiella resistant to cefepime, will start meropenem (2) Acute respiratory failure: Code(s): J96.00 - Acute respiratory failure, unspecified whether with hypoxia or hypercapnia Status: Acute Assessment and Plan: Acute respiratory failure could be related to SVT, hypotension, septic shock, aspiration pneumonia, UTI -08/11: was intubated in the ED -remains on CMV mode of ventilation, peep of 5, 40% FiO2 -chest x-ray and ABGs reviewed, ventilator adjusted, wean FiO2 to maintain O2 sats> 92% -on Precedex infusion, maintain RASS of 0 to -1 -daily SBT and SAT -continue DuoNeb -off IV fluids -have placed patient on pressure support ventilation, will evaluate for extubation, will diurese again today (3) Acute alteration in mental status: Code(s): R41.82 - Altered mental status, unspecified Status: Acute Assessment and Plan: MENTAL STATUS MUCH IMPROVED Likely related to hypotension, SVT, infection -will treat underlying cause -CT scan of the brain did not show any acute intracranial abnormality -08/12: Patient more alert and awake this morning and follows simple commands and nods to questions (4) Pneumonia: Code(s): J18.9 - Pneumonia, unspecified organism Status: Acute Assessment and Plan: Pneumonia as seen on CT scan of the chest abdomen pelvis -antibiotics as above -patient was negative for influenza, RSV and SARS-CoV-2 PCR -08/11: urine Legionella and urine pneumococcal antigens pending 08/11: CT scan of the chest/abdomen/pelvis showed left lower lobe consolidation and right basal atelectasis, no all or solid organ injury, no acute fracture. (5) UTI (urinary tract infection): Qualifiers: Urinary tract infection type: acute cystitis Hematuria presence: without hematuria Qualified Code(s): N30.00 - Acute cystitis without hematuria Code(s): N39.0 - Urinary tract infection, site not specified Status: Acute Assessment and Plan: UA was reflective of UTI -patient has a history of UTI with Pseudomonas (05/16/2024) which was resistant to fluoroquinolones -continue antibiotics as above -urine cultures growing ESBL KLEBSIELLA (6) Systolic heart failure: Qualifiers: Heart failure chronicity: chronic Qualified Code(s): I50.22 - Chronic systolic (congestive) heart failure Code(s): I50.20 - Unspecified systolic (congestive) heart failure Status: Chronic Assessment and Plan: Patient with systolic heart failure with a EF of 35-40% Patient has been on GDMT, will restart Entresto, metoprolol, digoxin, Lasix Off all IV fluids 05/15/2024: Echocardiogram Summary 1. Complete two-dimensional, color flow and Doppler transthoracic echocardiogram is performed. 2. Left ventricular chamber dimension is mildly enlarged. 3. Left ventricular systolic function is moderately reduced, estimated at 35-40%. 4. There is mildly increased left ventricular wall thickness. 5. The left ventricular diastolic function is abnormal. 6. Left atrial chamber dimension is severely enlarged. 7. Right atrial chamber dimension is mildly enlarged. 8. There is moderate to severe mitral valve regurgitation. 9. There is mild tricuspid valve regurgitation. 10. Severe pulmonary hypertension, estimated pulmonary arterial systolic pressure is 72 mmHg. 11. There is mild pulmonic regurgitation. 12. Pleural effusion seen. (7) Pulmonary hypertension: Code(s): I27.20 - Pulmonary hypertension, unspecified Status: Acute Assessment and Plan: Severe pulmonary hypertension (8) Mitral regurgitation: Code(s): I34.0 - Nonrheumatic mitral (valve) insufficiency Status: Acute Assessment and Plan: Moderate to severe mitral valve regurg, -caution with IV fluids (9) SVT (supraventricular tachycardia): Code(s): I47.10 - Supraventricular tachycardia, unspecified Status: Acute Assessment and Plan: Patient presented with SVT, was cardioverted by EMS according the triage note, heart rates were in the 160s to 240s, with hemodynamic instability -patient does have a history of AFib RVR on Eliquis at home -restarted Eliquis on admission (10) Acute kidney injury: Code(s): N17.9 - Acute kidney failure, unspecified Status: Acute Assessment and Plan: Acute kidney injury, likely septic shock, hypotension, ATN,, rhabdomyolysis -baseline creatinine is 0.50-0.80 -creatinine this admission is 1.70 -patient has received adequate amount of IV fluids -monitor urine output, renal function electrolytes -urine lytes did not reveal prerenal picture - urine eosinophils were negative, CK levels were 1099 -028: Renal ultrasound: No hydronephrosis or renal calculi -creatinine has normalized, adequate urine output (11) Atrial fibrillation with rapid ventricular response: Code(s): I48.91 - Unspecified atrial fibrillation Status: Acute Assessment and Plan: On Eliquis at home, will continue -currently rate controlled in sinus rhythm -continue to monitor (12) Swollen L knee: Code(s): M25.462 - Effusion, left knee Status: Acute Assessment and Plan: Swelling of the left knee with bogginess, fluctuation, warmth, likely septic joint -continue antibiotics 08/12: Appreciate orthopedic evaluation and recommendations, left knee aspiration was performed, -08/12: Left knee aspiration culture, no growth 08/11/2024: CT scan of the left knee IMPRESSION: Postoperative changes in the patella with destructive changes and fragmentation. multilocular abscess seen in the suprapatellar bursa. Synovitis seen in the left knee joint (13) Ankle fracture, left: Qualifiers: Encounter type: initial encounter Fracture type: closed Qualified Code(s): S82.892A - Other fracture of left lower leg, initial encounter for closed fracture Code(s): S82.892A - Other fracture of left lower leg, initial encounter for closed fracture Status: Acute Assessment and Plan: Left ankle swelling X-ray of the left ankle showed fracture of the lateral malleolus Appreciate orthopedic evaluation and recommendations, ice pack and elevated. Once he is more stable they recommended a fracture boot for out of bed with protected weight-bearing. -once he is extubated will get PT/OT to evaluate the patient Plan DVT prophylaxis: Apixaban Stress ulcer prophylaxis: Protonix Nutrition: hold tube feeds Code Status: Full code Critical Care Time Spent: 32 minutes Discussed with patient's mother and updated with patient's condition and plan of care. Due to a high probability of clinically significant, life threatening deterioration, the patient required my highest level of preparedness to intervene emergently and I personally spent this critical care time directly and personally managing the patient. This critical care time included obtaining a history; examining the patient; pulse oximetry; ordering and review of studies; arranging urgent treatment with development of a management plan; evaluation of patient's response to treatment; frequent reassessment; and discussions with other providers. It was exclusive of separately billable procedures and treating other patients and teaching time. Please see Assessment and Plan section and the rest of the note for further information on patient assessment and treatment This dictation may have been done utilizing a voice recognition system. Attempts have been made to correct errors. However, there may be uncorrected grammatical, spelling, and recognitions errors present. Subjective Date/time seen: 08/14/24 08:18 Interval history: Reason for consult: Acute respiratory failure, septic shock, pneumonia, SVT, fall, altered mental status, left ankle fracture, left knee swelling 08/11: Intubated 08/12: Status post aspiration of the left knee effusion 08/15/2023: Patient seen and examined the ICU, remains intubated on ASV mode of ventilation all day and all night, peep of 5, FiO2 25%. Remains on low-dose Precedex, is awake follows simple commands, nods to question. Urine output adequate in response to diuresis, hemodynamically stable in with slightly increased blood pressures. Afebrile Review of Systems Review of Systems: ROS unobtainable: Yes unobtainable due to endotracheal tube, unobtainable due to medical condition and unobtainable due to mental status Exam Narrative: General: Patient intubated, in no acute distress HEENT:? Pupils equal and reactive, sclera is clear, ETT in place Neck:? Supple Respiratory:? Coarse breath sounds bilaterally especially at bases, otherwise no wheezing, adequate air entry and clear to auscultation Cardiac:? S1-S2 normal, regular rate and rhythm Abdomen:? Soft, nontender, nondistended, hypoactive bowel sounds Extremities:? Left knee is less swollen, with ecchymosis seems to have improved, Left ankle swollen and warm Neuro:? Patient is intubated, on Precedex, opens his eyes, follows simple commands and nods to questions Skin:? warm and dry Psych:? Unable to assess at this time Objective Data Vital Signs Vital Signs: Vital Signs - 24 hr 08/13/24 08:20 08/13/24 08:20 08/13/24 08:35 Temperature Pulse Rate 66 66 80 Respiratory Rate 15 15 Blood Pressure Pulse Oximetry 96 Oxygen Delivery Mechanical Ventilation Fraction of Inspired Oxygen 08/13/24 09:00 08/13/24 10:00 08/13/24 10:00 Temperature Pulse Rate 82 82 82 Respiratory Rate 15 16 16 Blood Pressure Pulse Oximetry Oxygen Delivery Fraction of Inspired Oxygen 08/13/24 10:00 08/13/24 10:00 08/13/24 11:00 Temperature 98.5 F Pulse Rate 84 69 69 Respiratory Rate 16 16 Blood Pressure 117/67 Pulse Oximetry 94 Oxygen Delivery Fraction of Inspired Oxygen 08/13/24 11:00 08/13/24 11:16 08/13/24 11:35 Temperature Pulse Rate 69 69 66 Respiratory Rate 16 22 H Blood Pressure Pulse Oximetry 95 Oxygen Delivery Mechanical Ventilation Fraction of Inspired Oxygen 08/13/24 12:00 08/13/24 12:00 08/13/24 12:00 Temperature 98.1 F Pulse Rate 64 62 62 Respiratory Rate 13 13 Blood Pressure 120/73 Pulse Oximetry 96 96 Oxygen Delivery Mechanical Ventilation Fraction of Inspired Oxygen 08/13/24 12:00 08/13/24 12:00 08/13/24 14:00 Temperature 98.3 F Pulse Rate 65 59 L Respiratory Rate 15 16 Blood Pressure 124/77 Pulse Oximetry 97 Oxygen Delivery Fraction of Inspired Oxygen 08/13/24 14:00 08/13/24 14:00 08/13/24 14:08 Temperature Pulse Rate 61 64 60 Respiratory Rate 18 12 Blood Pressure Pulse Oximetry Oxygen Delivery Fraction of Inspired Oxygen 08/13/24 14:10 08/13/24 14:20 08/13/24 16:00 Temperature 98.0 F Pulse Rate 59 L 65 64 Respiratory Rate 20 17 Blood Pressure 134/75 Pulse Oximetry 97 96 Oxygen Delivery Mechanical Ventilation Fraction of Inspired Oxygen 25 08/13/24 16:00 08/13/24 16:00 08/13/24 16:00 Temperature Pulse Rate 65 65 Respiratory Rate 17 Blood Pressure Pulse Oximetry 96 Oxygen Delivery Mechanical Ventilation Fraction of Inspired Oxygen 25 25 08/13/24 16:00 08/13/24 16:17 08/13/24 18:00 Temperature Pulse Rate 64 73 62 Respiratory Rate 18 Blood Pressure Pulse Oximetry 96 Oxygen Delivery Mechanical Ventilation Fraction of Inspired Oxygen 25 08/13/24 18:00 08/13/24 19:34 08/13/24 20:00 Temperature 98.1 F Pulse Rate 62 85 56 L Respiratory Rate 20 22 H 14 Blood Pressure 144/83 H Pulse Oximetry 96 Oxygen Delivery Fraction of Inspired Oxygen 08/13/24 20:00 08/13/24 20:00 08/13/24 20:00 Temperature 98.6 F Pulse Rate 56 L 56 L Respiratory Rate 14 14 Blood Pressure 150/91 H Pulse Oximetry 95 95 Oxygen Delivery Mechanical Ventilation Fraction of Inspired Oxygen 25 08/13/24 20:00 08/13/24 20:26 08/13/24 20:28 Temperature Pulse Rate 56 L 72 72 Respiratory Rate 19 Blood Pressure Pulse Oximetry 95 Oxygen Delivery Mechanical Ventilation Fraction of Inspired Oxygen 08/13/24 20:54 08/13/24 22:00 08/13/24 22:00 Temperature Pulse Rate 125 H 76 76 Respiratory Rate 24 H 16 Blood Pressure Pulse Oximetry Oxygen Delivery Fraction of Inspired Oxygen 08/13/24 22:00 08/13/24 22:35 08/14/24 00:00 Temperature 98.9 F Pulse Rate 76 72 66 Respiratory Rate 16 14 Blood Pressure 155/90 H Pulse Oximetry 95 95 Oxygen Delivery Mechanical Ventilation Fraction of Inspired Oxygen 08/14/24 00:00 08/14/24 00:00 08/14/24 00:00 Temperature Pulse Rate 62 62 Respiratory Rate 14 Blood Pressure Pulse Oximetry 94 Oxygen Delivery Mechanical Ventilation Fraction of Inspired Oxygen 25 25 08/14/24 00:00 08/14/24 00:14 08/14/24 00:14 Temperature 99.5 F Pulse Rate 62 64 64 Respiratory Rate 14 14 14 Blood Pressure 150/92 H Pulse Oximetry 94 Oxygen Delivery Fraction of Inspired Oxygen 08/14/24 02:00 08/14/24 02:00 08/14/24 02:00 Temperature 99.9 F H Pulse Rate 61 61 61 Respiratory Rate 15 15 Blood Pressure 145/96 H Pulse Oximetry 93 Oxygen Delivery Fraction of Inspired Oxygen 08/14/24 02:07 08/14/24 02:09 08/14/24 02:13 Temperature Pulse Rate 62 62 62 Respiratory Rate 12 16 Blood Pressure Pulse Oximetry 93 Oxygen Delivery Mechanical Ventilation Fraction of Inspired Oxygen 08/14/24 04:00 08/14/24 04:00 08/14/24 04:00 Temperature Pulse Rate 70 70 Respiratory Rate 17 Blood Pressure Pulse Oximetry 92 Oxygen Delivery Mechanical Ventilation Fraction of Inspired Oxygen 08/14/24 04:00 08/14/24 04:00 08/14/24 04:30 Temperature 100 F H Pulse Rate 70 70 68 Respiratory Rate 17 17 17 Blood Pressure 161/95 H Pulse Oximetry 92 Oxygen Delivery Fraction of Inspired Oxygen 08/14/24 04:34 08/14/24 06:00 08/14/24 06:00 Temperature Pulse Rate 68 73 73 Respiratory Rate 11 L Blood Pressure Pulse Oximetry 92 Oxygen Delivery Mechanical Ventilation Fraction of Inspired Oxygen 08/14/24 06:00 08/14/24 06:30 08/14/24 08:00 Temperature 99.2 F Pulse Rate 73 64 78 Respiratory Rate 11 L 13 Blood Pressure 172/102 H 160/98 H Pulse Oximetry 96 Oxygen Delivery Fraction of Inspired Oxygen 08/14/24 08:00 08/14/24 08:00 08/14/24 08:07 Temperature 98.6 F Pulse Rate 78 74 80 Respiratory Rate 16 13 Blood Pressure 159/96 H Pulse Oximetry 92 92 Oxygen Delivery Mechanical Ventilation Fraction of Inspired Oxygen 25 Intake/Output Intake/Output: Intake & Output 08/11/24 08/12/24 08/13/24 08/14/24 23:59 23:59 23:59 23:59 Intake Total 4698.0 5982.7 2356.9 145.4 Output Total 500 2200 2320 300 Balance 4198.0 3782.7 36.9 -154.6 Meds/Results Medications: Active Medications Generic Name Dose Route Start Last Admin Trade Name Freq PRN Reason Stop Dose Admin Acetaminophen 650 mg 08/11/24 12:28 Acetaminophen 650 Mg Suppository RECTAL Q6H PRN Mild Pain (1-3) or Fever Albuterol/Ipratropium 3 ml 08/11/24 14:15 08/14/24 08:02 Ipratropium 0.5 Mg/Albuterol Sulfate 2.5 Mg Ampul.Neb 3 Ml INHALATION 3 ml Q6HRT DAKSHA Administration Apixaban 5 mg 08/11/24 21:00 08/13/24 20:09 Apixaban 5 Mg Tablet PO 5 mg Q12HR DAKSHA Administration Dextrose 12.5 gm 08/11/24 14:25 Dextrose 50% 25 Gm/50 Ml Syringe IV PUSH PRN PRN Hypoglycemia Protocol Digoxin 250 mcg 08/14/24 09:00 Digoxin 250 Mcg Tablet PO QAM [facility] Folic Acid 1 mg 08/14/24 09:00 Folic Acid 1 Mg Tablet PO DAILY DKASHA Glucagon 1 mg 08/11/24 14:25 Glucagon For Inj 1 Mg Vial IM PRN PRN Hypoglycemia Protocol Glucose 15 gm 08/11/24 14:25 Glucose Oral Gel 15 Gm Of Glucse In 37.5 Gm Tube PO PRN PRN Hypoglycemia Protocol Hydrocortisone Sodium Succinate 50 mg 08/13/24 18:00 08/14/24 05:42 Hydrocortisone Sodium Succinate 100 Mg/2 Ml Vial IV PUSH 08/14/24 18:01 50 mg Q12H DAKSHA Administration Dextrose 1,000 mls @ 100 mls/hr 08/11/24 14:25 Dextrose 5% 1,000 Ml IVPB PRN PRN Hypoglycemia Protocol Dexmedetomidine HCl 400 mcg in 100 mls @ 4.235 mls/hr 08/13/24 12:30 08/14/24 06:00 Precedex 400 Mcg/100 Ml IV CONT 0.2 mcg/kg/hr .[id number] DAKSHA 4.24 mls/hr Titration Protocol 0.2 MCG/KG/HR Potassium Chloride 100 mls @ 25 mls/hr 08/14/24 07:13 Kcl 40 Meq/Water 100 Ml IVPB 08/14/24 11:12 ONCE ONE Meropenem 1 gm in 100 mls @ 200 mls/hr 08/14/24 07:20 IVPB Q8HR [facility] Metoprolol Succinate 100 mg 08/14/24 09:00 Metoprolol Succinate Ext Rel 100 Mg Tabcr PO QAM [facility] Multi-Ingred Cream/Lotion/Oil/Oint 1 applic 08/13/24 21:00 08/13/24 20:10 Mineral Oil/White Petrolatum Ointment EACH EYE Not Given Q12HR DAKSHA Pantoprazole Sodium 40 mg 08/11/24 14:05 08/13/24 08:57 Pantoprazole Sodium Iv 40 Mg Vial IV PUSH 40 mg QAM DAKSHA Administration Sacubitril/Valsartan 1 tab 08/14/24 09:00 Sacubitril/Valsartan 24-26 Mg Tablet PO Q12HR DAKSHA Sodium Chloride 10 ml 08/11/24 14:00 08/14/24 05:45 Central Line Flush IV PUSH 10 ml Q8HR DAKSHA Administration Sodium Chloride 20 ml 08/11/24 13:52 Central Line Flush IV PUSH PRN PRN after blood draws Radiology Results: ITS Impressions Head CT 08/11/24 11:35 Impression: No acute abnormality. Chronic findings, as detailed above. Chest/Abdomen/Pelvis CT 08/11/24 11:39 IMPRESSION: Left lower lobe consolidation and right basilar atelectasis. No hollow or solid organ injury. No acute fractures. Venous Doppler Study 08/11/24 15:11 IMPRESSION: 1: No lower extremity deep venous thrombosis. Renal Ultrasound 08/11/24 15:22 IMPRESSION: No hydronephrosis or renal calculi. Examination is unchanged from CT study performed 3 hours earlier Ankle X-Ray 08/11/24 18:33 IMPRESSION: Fracture of the lateral malleolus. Knee CT 08/11/24 19:16 IMPRESSION: Postoperative changes in the patella with destructive changes and fragmentation. multilocular abscess seen in the suprapatellar bursa. Synovitis seen in the left knee joint. was notified with the result of the patient at 7:35 PM on August 11, 2024. Chest X-Ray 08/14/24 05:48 Impression: 1: Persistent bibasilar airspace disease which may represent pneumonia and/or atelectasis. Labs Labs: Laboratory Results - last 24 hr 08/12/24 08/12/24 08/13/24 04:33 04:52 04:09 WBC RBC Hgb Hct MCV MCH MCHC RDW Plt Count MPV Immature Gran % (Auto) Neut % (Auto) Lymph % (Auto) [place] % (Auto) Eos % (Auto) Baso % (Auto) Lymph # (Auto) [place] # (Auto) Eos # (Auto) Baso # (Auto) Abs Immat Gran (auto) Absolute Neuts (auto) Absolute Nucleated RBC Nucleated RBC % Puncture Site ABG pH ABG pCO2 ABG pO2 ABG PO2/FiO2 Ratio ABG HCO3 ABG O2 Saturation ABG O2 Content ABG Base Excess A-a Gradient Oxyhemoglobin Total Hemoglobin O2 Delivery Device O2 Liters/Min Minute Volume Vent Rate 12 Vent Mode Cmv FiO2 Tidal Volume 500 PEEP 5 Peak Inspir Pressure Pressure Support Sodium Potassium Chloride Carbon Dioxide Anion Gap BUN Creatinine Estim Creat Clear Calc Estimated GFR Glucose POC Capillary Glucose Calcium Phosphorus Magnesium Total Bilirubin AST ALT Alkaline Phosphatase Total Creatine Kinase 1978 H Total Protein Albumin Triglycerides Ur Random Creatinine 76 Ur Random Chloride 67 U Random Chloride/Creat 88 Vancomycin Trough 08/13/24 08/13/24 08/13/24 08:59 11:18 18:01 WBC RBC Hgb Hct MCV MCH MCHC RDW Plt Count MPV Immature Gran % (Auto) Neut % (Auto) Lymph % (Auto) [place] % (Auto) Eos % (Auto) Baso % (Auto) Lymph # (Auto) [place] # (Auto) Eos # (Auto) Baso # (Auto) Abs Immat Gran (auto) Absolute Neuts (auto) Absolute Nucleated RBC Nucleated RBC % Puncture Site ABG pH ABG pCO2 ABG pO2 ABG PO2/FiO2 Ratio ABG HCO3 ABG O2 Saturation ABG O2 Content ABG Base Excess A-a Gradient Oxyhemoglobin Total Hemoglobin O2 Delivery Device O2 Liters/Min Minute Volume Vent Rate Vent Mode FiO2 Tidal Volume PEEP Peak Inspir Pressure Pressure Support Sodium Potassium Chloride Carbon Dioxide Anion Gap BUN Creatinine Estim Creat Clear Calc Estimated GFR Glucose POC Capillary Glucose 123 H 107 H Calcium Phosphorus Magnesium Total Bilirubin AST ALT Alkaline Phosphatase Total Creatine Kinase Total Protein Albumin Triglycerides 99 Ur Random Creatinine Ur Random Chloride U Random Chloride/Creat Vancomycin Trough 13.1 08/13/24 08/14/24 23:28 04:25 WBC 18.2 H RBC 3.46 L Hgb 10.9 L Hct 33.0 L MCV 95.4 MCH 31.5 MCHC 33.0 RDW 14.9 H Plt Count 173 MPV 10.3 Immature Gran % (Auto) 0.8 H Neut % (Auto) 81.0 H Lymph % (Auto) 10.8 L [place] % (Auto) 7.0 Eos % (Auto) 0.1 Baso % (Auto) 0.3 Lymph # (Auto) 1.96 [place] # (Auto) 1.3 H Eos # (Auto) 0.0 Baso # (Auto) 0.1 Abs Immat Gran (auto) 0.15 H Absolute Neuts (auto) 14.7 H Absolute Nucleated RBC 0.000 Nucleated RBC % 0.0 Puncture Site Left radial ABG pH 7.501 H ABG pCO2 25.5 L ABG pO2 72.6 L ABG PO2/FiO2 Ratio 2.90 ABG HCO3 19.5 L ABG O2 Saturation 96.1 ABG O2 Content 15.5 L ABG Base Excess -2.4 A-a Gradient 75.4 Oxyhemoglobin 94.2 Total Hemoglobin 11.7 L O2 Delivery Device Ventilator O2 Liters/Min Not Reportable Minute Volume Not Reportable Vent Rate Not Reportable Vent Mode Asv FiO2 25 Tidal Volume Not Reportable PEEP 5 Peak Inspir Pressure Not Reportable Pressure Support Not Reportable Sodium 141 Potassium 3.2 L Chloride 112 H Carbon Dioxide 22 Anion Gap 7 BUN 25 H D Creatinine 0.84 Estim Creat Clear Calc 98 Estimated GFR > 60 Glucose 118 H POC Capillary Glucose 133 H Calcium 9.1 Phosphorus 1.5 L Magnesium 2.3 Total Bilirubin 0.7 AST 90 H ALT 51 H Alkaline Phosphatase 53 Total Creatine Kinase Total Protein 6.0 L Albumin 3.9 Triglycerides Ur Random Creatinine Ur Random Chloride U Random Chloride/Creat Vancomycin Trough Quality VTE Prophylaxis VTE prophylaxis: pharmacologic ordered
[2024-08-14] MEDS: APIXABAN 5 MG TABLET PO ×2 (08:35→20:04)
[2024-08-14] MEDS: FOLIC ACID 1 MG TABLET PO (08:35)
[2024-08-14] MEDS: POTASSIUM/PHOSPHORUS/SODIUM 1.5 GM PACKET 1 PACKET PO (08:36)
[2024-08-14] MEDS: PANTOPRAZOLE SODIUM IV 40 MG VIAL IV PUSH (08:37)
[2024-08-14] MEDS: FUROSEMIDE INJ 40 MG/4 ML VIAL IV PUSH (08:37)
[2024-08-14] MEDS: POTASSIUM CHLORIDE 20 MEQ PACKET (FOR LIQUID) 40 MEQ FEED TUBE (08:37)
[2024-08-14] MEDS: MEROPENEM 1 GM/NS 100 ML 1 GM/100 ML BAG IVPB ×3 (08:38→22:32)
[2024-08-14] MEDS: METOPROLOL SUCCINATE EXT REL 100 MG TABCR PO (08:39)
[2024-08-14] MEDS: DIGOXIN 250 MCG TABLET PO (08:39)
[2024-08-14] MEDS: MINERAL OIL/WHITE PETROLATUM OINTMENT 1 APPLIC EACH EYE (08:48)
[2024-08-14] MEDS: SACUBITRIL/VALSARTAN 24-26 MG TABLET 1 TAB PO ×2 (08:56→20:04)
[2024-08-14] MEDS: KCL 40 MEQ/WATER 100 ML 100 ML 25 ML IVPB (09:13)
[2024-08-14 09:30] LABS: Alveolar/Arterial O2 Gradient 72.3 mmHg; Base Excess ABG -1.5 mEq/l (+/-2.0); Fractional Inspired Oxygen 30 %; HCO3 ABG 22.6 mEq/l (22.0-26.0); Oxygen Content ABG 16.9 %vol (16.0-22.0); Oxygen Saturation ABG 97.6 % (95.0-100.0); Oxyhemoglobin 96.5 % THb (90.0-100.0); PO2 ABG 99.3 mmHg (80.0-100.0); PO2 FiO2 Ratio Arterial Blood 3.31 %; Total Hemoglobin 12.4 g/dL (12.0-18.0); pH ABG 7.416 (7.350-7.450)
[2024-08-14 09:32] LABS: Device VENTILATOR; Modified Allen's Test Pass; Site Drawn RIGHT RADIAL
[2024-08-14 09:33] LABS: Arterial Blood Gas PEEP 5 cmH2O; Arterial Blood Gas Pressure Support 8 cmH2O; Arterial Blood Gas Vent Mode SPONTANEOUS
--- NOTE | 2024-08-14 12:41 | PCSTNOTE ---
Please refer to the Bedside Swallow Evaluation in the EMR. Please note, silent aspiration cannot be ruled out at bedside. This 48 year old male patient was seen at bedside for a swallow evaluation following extubation. The pt was intubated for ~4 days. He has a history of CVA and a brain aneurysm. The pt was seen for a previous BSE and MBS (05/2024) following extubation at [facility]. The pt was discharged from speech therapy services and was safe to consume a regular solid/thin liquid diet following testing done in May. Today, the pt was upright in the ICU bed upon ST entry and was alert and oriented this date. His sister was present for the BSE and stated that his voice being hoarse/breathy is baseline. A oral mechanism exam was completed with the pt exhibiting dentition and labial/lingual strength and flexibility that are adequate for oral intake. The pt consumed trials of multiple different consistencies including thin, pureed (pudding), mixed (fruit cocktail), and solids (smith crackers) via hand, spoon, cup edge, and straw. The pts oral stage was within functional limits. There was no leakage and the pt was able to control the bolus. During the pharyngeal stage of his swallow, the pt demonstrated adequate laryngeal elevation and demonstrated an appropriate triggering of the swallow. No s/s of aspiration occurred. Please note that silent aspiration cannot be ruled out at bedside. It is recommended that the pt have an oral diet of IDDSI Level 7- Regular Solids and IDDSI Level 1 - Thin Liquids. The pt demonstrated upper body weakness so may require set up assist during meals as well as frequent observation to aid in oral intake. The pt should continue to abide by standard swallowing precautions: Sit upright during meals, take small bites and small sips, and limit distractions. Dr. Yao and SABRINA Kyle were notified of BSE results and recommendations. Thank you for this referral.
[2024-08-14] MEDS: sulfaSALAzine 500 MG TABLET PO ×3 (14:24→20:04)
[2024-08-14 15:43] LABS: Pneumococcal Antigen Urine NOT DETECTED
[2024-08-14 21:02] LABS: Vancomycin Trough 6.1 ug/mL (10.0-20.0)
[2024-08-14 21:32] LABS: Legionella pneumophila Ag Ur NOT DETECTED
[2024-08-15] VITALS (15 sets, daily range): BP systolic 125–152; BP diastolic 70–94; PULSE 69–113; RESP 12–22; TEMP 37–37.4; O2SAT 92–98
[2024-08-15] MEDS: IPRATROPIUM 0.5 MG/ALBUTEROL SULFATE 2.5 MG AMPUL.NEB 3 ML INHALATION ×4 (01:47→19:52)
[2024-08-15 04:19] LABS: Basophils Absolute Auto 0.1 K/mm3 (0.0-0.1); Basophils Percent Auto 0.4 % (0.2-1.2); Eosinophils Absolute Auto 0.2 K/mm3 (0-0.3); Eosinophils Percent Auto 1.2 % (0-4.4); Hemoglobin 10.8 g/dL (14.0-18.0); Immature Granulocyte Absolute 0.14 K/mm3 (0.00-0.031); Lymphocytes Absolute Auto 1.58 K/mm3 (0.9-3.2); Lymphocytes Percent Auto 11.7 % (18.3-44.2); Mean Corpuscular HGB Conc 32.7 g/dl (32-36); Mean Corpuscular Hemoglobin 31.4 pg (26-34); Mean Corpuscular Volume 95.9 fl (80-100); Mean Platelet Volume 9.8 fl (7.4-10.4); Monocytes Percent Auto 7.6 % (2.6-8.5); Neutrophils Absolute Auto 10.6 K/mm3 (1.3-6.7); Neutrophils Percent Auto 78.1 % (45.5-73.1); Platelet Count Result 181 k/mm3 (150-375); Red Blood Count 3.44 M/mm3 (4.6-6.20); Red Cell Distribution Width 15.1 % (11.5-14.5); White Blood Count 13.5 K/mm3 (4.5-10.0)
[2024-08-15 04:36] LABS: Alanine Aminotransferase 54 U/L (6-50); Albumin Level 3.7 g/dL (3.5-5.1); Alkaline Phosphatase 49 U/L (38-126); Anion Gap 7 mmol/L (4-12); Aspartate Amino Transferase 82 U/L (17-59); Bilirubin,Total 0.6 mg/dL (0.2-1.3); Blood Urea Nitrogen 30 mg/dL (9-20); Calcium 8.9 mg/dL (8.4-10.2); Carbon Dioxide 26 mmol/L (22-30); Chloride 106 mmol/L (98-107); Estimated CRCL calculation 116 ml/min; Estimated Glomerular Filt Rate > 60; Glucose 110 mg/dL (65-110); Magnesium 1.9 mg/dL (1.6-2.3); Phosphorus 3.5 mg/dL (2.5-4.5); Potassium 3.4 mmol/L (3.4-5.0); Sodium 139 mmol/L (137-145)
[2024-08-15] MEDS: CENTRAL LINE FLUSH 10 ML IV PUSH ×2 (05:31→14:23)
[2024-08-15] MEDS: MEROPENEM 1 GM/NS 100 ML 1 GM/100 ML BAG IVPB ×3 (05:32→21:08)
[2024-08-15] MEDS: SACUBITRIL/VALSARTAN 24-26 MG TABLET 1 TAB PO ×2 (09:03→21:08)
[2024-08-15] MEDS: DIGOXIN 250 MCG TABLET PO (09:03)
[2024-08-15] MEDS: FOLIC ACID 1 MG TABLET PO (09:03)
[2024-08-15] MEDS: APIXABAN 5 MG TABLET PO ×2 (09:03→21:08)
[2024-08-15] MEDS: sulfaSALAzine 500 MG TABLET PO ×4 (09:03→21:08)
[2024-08-15] MEDS: PANTOPRAZOLE SODIUM IV 40 MG VIAL IV PUSH (09:04)
[2024-08-15] MEDS: METOPROLOL SUCCINATE EXT REL 100 MG TABCR PO (09:05)
--- NOTE | 2024-08-15 09:24 | WPDINTPN ---
Progress Note: A&P Assessment and Plan (1) Septic shock: Code(s): A41.9 - Sepsis, unspecified organism; R65.21 - Severe sepsis with septic shock Status: Acute Assessment and Plan: 08/11: Patient admitted with SVT, status post cardioversion by EMS. Was found down at home, with vomit on himself, respiratory distress, -patient was found to be hypotensive, likely related to septic shock, SVT, aspiration pneumonia, UTI -patient was given 1 L IV fluid bolus in the ER, will give additional IV fluid bolus in the ICU given history of cardiomyopathy with EF of 35-40% -OFF ALL PRESSORS -wean stress dose steroid -08/11: Blood cultures growing ESBL Klebsiella resistant to cefepime -08/11: Urine cultures growing ESBL Klebsiella -08/11: Sputum cultures growth of normal oropharyngeal bambi -08/12: Left knee aspiration culture, no growth 08/13: Repeat blood culture: No growth x2 (08/11) -08/12: Flagyl discontinued -08/13: Doxycycline Discontinued -08/14: Discontinue cefepime as ESBL Klebsiella resistant to cefepime, started meropenem (2) Acute respiratory failure: Code(s): J96.00 - Acute respiratory failure, unspecified whether with hypoxia or hypercapnia Status: Acute Assessment and Plan: Acute respiratory failure could be related to SVT, hypotension, septic shock, aspiration pneumonia, UTI -08/11: Intubated in the ED -08/14: Extubated -continue DuoNeb -off IV fluids -continue diuresis (3) Acute alteration in mental status: Code(s): R41.82 - Altered mental status, unspecified Status: Acute Assessment and Plan: RESOLVED Likely related to hypotension, SVT, infection -will treat underlying cause -CT scan of the brain did not show any acute intracranial abnormality -08/12: Patient more alert and awake this morning and follows simple commands and nods to questions (4) Pneumonia: Code(s): J18.9 - Pneumonia, unspecified organism Status: Acute Assessment and Plan: Pneumonia as seen on CT scan of the chest abdomen pelvis -antibiotics as above -patient was negative for influenza, RSV and SARS-CoV-2 PCR -08/11: urine Legionella and urine pneumococcal antigens pending 08/11: CT scan of the chest/abdomen/pelvis showed left lower lobe consolidation and right basal atelectasis, no all or solid organ injury, no acute fracture. (5) UTI (urinary tract infection): Qualifiers: Urinary tract infection type: acute cystitis Hematuria presence: without hematuria Qualified Code(s): N30.00 - Acute cystitis without hematuria Code(s): N39.0 - Urinary tract infection, site not specified Status: Acute Assessment and Plan: UA was reflective of UTI -patient has a history of UTI with Pseudomonas (05/16/2024) which was resistant to fluoroquinolones -continue antibiotics as above -urine cultures growing ESBL KLEBSIELLA (6) Systolic heart failure: Qualifiers: Heart failure chronicity: chronic Qualified Code(s): I50.22 - Chronic systolic (congestive) heart failure Code(s): I50.20 - Unspecified systolic (congestive) heart failure Status: Chronic Assessment and Plan: Patient with systolic heart failure with a EF of 35-40% Patient has been on GDMT, -CONTINUE Entresto, metoprolol, digoxin, Lasix , spironolactone, Jardiance, digoxin Off all IV fluids 05/15/2024: Echocardiogram Summary 1. Complete two-dimensional, color flow and Doppler transthoracic echocardiogram is performed. 2. Left ventricular chamber dimension is mildly enlarged. 3. Left ventricular systolic function is moderately reduced, estimated at 35-40%. 4. There is mildly increased left ventricular wall thickness. 5. The left ventricular diastolic function is abnormal. 6. Left atrial chamber dimension is severely enlarged. 7. Right atrial chamber dimension is mildly enlarged. 8. There is moderate to severe mitral valve regurgitation. 9. There is mild tricuspid valve regurgitation. 10. Severe pulmonary hypertension, estimated pulmonary arterial systolic pressure is 72 mmHg. 11. There is mild pulmonic regurgitation. 12. Pleural effusion seen. (7) Pulmonary hypertension: Code(s): I27.20 - Pulmonary hypertension, unspecified Status: Acute Assessment and Plan: Severe pulmonary hypertension (8) Mitral regurgitation: Code(s): I34.0 - Nonrheumatic mitral (valve) insufficiency Status: Acute Assessment and Plan: Moderate to severe mitral valve regurg, -caution with IV fluids (9) SVT (supraventricular tachycardia): Code(s): I47.10 - Supraventricular tachycardia, unspecified Status: Acute Assessment and Plan: Patient presented with SVT, was cardioverted by EMS according the triage note, heart rates were in the 160s to 240s, with hemodynamic instability -patient does have a history of AFib RVR on Eliquis at home -restarted Eliquis on admission (10) Acute kidney injury: Code(s): N17.9 - Acute kidney failure, unspecified Status: Acute Assessment and Plan: Acute kidney injury, likely septic shock, hypotension, ATN,, rhabdomyolysis -baseline creatinine is 0.50-0.80 -creatinine this admission is 1.70 -patient has received adequate amount of IV fluids -monitor urine output, renal function electrolytes -urine lytes did not reveal prerenal picture - urine eosinophils were negative, CK levels were 1099 -028: Renal ultrasound: No hydronephrosis or renal calculi -creatinine has normalized, adequate urine output (11) Atrial fibrillation with rapid ventricular response: Code(s): I48.91 - Unspecified atrial fibrillation Status: Acute Assessment and Plan: On Eliquis at home, will continue -currently rate controlled in sinus rhythm -continue to monitor (12) Swollen L knee: Code(s): M25.462 - Effusion, left knee Status: Acute Assessment and Plan: Swelling of the left knee with bogginess, fluctuation, warmth, likely septic joint -continue antibiotics 08/12: Appreciate orthopedic evaluation and recommendations, left knee aspiration was performed, -08/12: Left knee aspiration culture, no growth 08/11/2024: CT scan of the left knee IMPRESSION: Postoperative changes in the patella with destructive changes and fragmentation. multilocular abscess seen in the suprapatellar bursa. Synovitis seen in the left knee joint (13) Ankle fracture, left: Qualifiers: Encounter type: initial encounter Fracture type: closed Qualified Code(s): S82.892A - Other fracture of left lower leg, initial encounter for closed fracture Code(s): S82.892A - Other fracture of left lower leg, initial encounter for closed fracture Status: Acute Assessment and Plan: Left ankle swelling X-ray of the left ankle showed fracture of the lateral malleolus Appreciate orthopedic evaluation and recommendations, ice pack and elevated. Once he is more stable they recommended a fracture boot for out of bed with protected weight-bearing. -once he is extubated will get PT/OT to evaluate the patient Plan DVT prophylaxis: Apixaban Stress ulcer prophylaxis: Protonix Nutrition: Patient passed his swallow evaluation, continue heart healthy, low-sodium diet PT/OT following the patient Code Status: Full code Critical Care Time Spent: 31 minutes Discussed with patient's mother and updated with patient's condition and plan of care. May transfer out of the ICU Due to a high probability of clinically significant, life threatening deterioration, the patient required my highest level of preparedness to intervene emergently and I personally spent this critical care time directly and personally managing the patient. This critical care time included obtaining a history; examining the patient; pulse oximetry; ordering and review of studies; arranging urgent treatment with development of a management plan; evaluation of patient's response to treatment; frequent reassessment; and discussions with other providers. It was exclusive of separately billable procedures and treating other patients and teaching time. Please see Assessment and Plan section and the rest of the note for further information on patient assessment and treatment This dictation may have been done utilizing a voice recognition system. Attempts have been made to correct errors. However, there may be uncorrected grammatical, spelling, and recognitions errors present. Subjective Date/time seen: 08/15/24 09:24 Interval history: Reason for consult: Acute respiratory failure, septic shock, pneumonia, SVT, fall, altered mental status, left ankle fracture, left knee swelling 08/11: Intubated 08/12: Status post aspiration of the left knee effusion 08/14: Extubated 08/16/2023: Patient seen and examined the ICU this morning, remains extubated, on room air with adequate O2 sats. Hemodynamically stable, afebrile, adequate urine output in response to diuresis with negative fluid balance. Patient denies any shortness of breath, abdominal pain, nausea vomiting. Patient had unequal pupils yesterday, left> right, CT brain was negative for acute intracranial abnormality. Review of Systems Review of Systems: All systems reviewed & are unremarkable except as noted in HPI and below Exam Narrative: General: Patient is awake, in no acute distress HEENT:? Left pupil still slightly larger than the right, both are reactive to light, sclera is clear, Neck:? Supple Respiratory:? Clear to auscultation bilaterally, decreased at bases, no wheezing Cardiac:? S1-S2 normal, regular rate and rhythm Abdomen:? Soft, nontender, nondistended, normoactive bowel sounds Extremities:? Left knee is less swollen, with ecchymosis seems to have improved, Left ankle swollen and warm Neuro:? Patient is on room air, follows simple commands, able to answer questions appropriately Skin:? warm and dry Psych:? Normal mentation and affect Objective Data Vital Signs Vital Signs: Vital Signs - 24 hr 08/14/24 09:38 08/14/24 09:40 08/14/24 10:00 Temperature 98.6 F Pulse Rate 62 76 66 Respiratory Rate 18 14 Blood Pressure 134/81 Pulse Oximetry 95 96 95 Oxygen Delivery Nasal Cannula Nasal Cannula Oxygen Flow Rate 2 2 Fraction of Inspired Oxygen 28 08/14/24 10:00 08/14/24 12:00 08/14/24 12:00 Temperature 98.4 F Pulse Rate 63 96 80 Respiratory Rate 21 H Blood Pressure 134/90 Pulse Oximetry 94 Oxygen Delivery Oxygen Flow Rate Fraction of Inspired Oxygen 08/14/24 12:00 08/14/24 13:23 08/14/24 13:32 Temperature Pulse Rate 79 79 83 Respiratory Rate 20 20 Blood Pressure Pulse Oximetry 93 Oxygen Delivery Nasal Cannula Oxygen Flow Rate 2 Fraction of Inspired Oxygen 08/14/24 14:00 08/14/24 14:00 08/14/24 14:45 Temperature 99.1 F Pulse Rate 82 78 Respiratory Rate 15 Blood Pressure 125/103 H Pulse Oximetry 93 Oxygen Delivery Nasal Cannula Oxygen Flow Rate 2 Fraction of Inspired Oxygen 08/14/24 16:00 08/14/24 16:00 08/14/24 16:00 Temperature 99.0 F Pulse Rate 102 H 78 89 Respiratory Rate 17 Blood Pressure 123/89 Pulse Oximetry 93 93 Oxygen Delivery Nasal Cannula Oxygen Flow Rate 2 Fraction of Inspired Oxygen 08/14/24 16:42 08/14/24 18:00 08/14/24 18:00 Temperature 99.1 F Pulse Rate 89 94 92 Respiratory Rate 14 14 Blood Pressure 123/89 130/84 Pulse Oximetry 97 96 Oxygen Delivery Nasal Cannula Oxygen Flow Rate 2 Fraction of Inspired Oxygen 08/14/24 20:00 08/14/24 20:00 08/14/24 20:00 Temperature 99.2 F Pulse Rate 83 66 75 Respiratory Rate 20 Blood Pressure 127/85 Pulse Oximetry 97 97 Oxygen Delivery Nasal Cannula Oxygen Flow Rate 2 Fraction of Inspired Oxygen 08/14/24 20:02 08/14/24 20:12 08/14/24 22:00 Temperature 99.1 F Pulse Rate 75 77 80 Respiratory Rate 18 18 14 Blood Pressure 119/76 Pulse Oximetry 96 Oxygen Delivery Oxygen Flow Rate Fraction of Inspired Oxygen 08/14/24 22:00 08/15/24 00:00 08/15/24 00:00 Temperature 98.9 F Pulse Rate 83 74 74 Respiratory Rate 14 Blood Pressure 125/76 Pulse Oximetry 95 Oxygen Delivery Oxygen Flow Rate Fraction of Inspired Oxygen 08/15/24 00:00 08/15/24 01:49 08/15/24 02:00 Temperature Pulse Rate 74 80 79 Respiratory Rate 22 H Blood Pressure Pulse Oximetry 95 Oxygen Delivery Nasal Cannula Oxygen Flow Rate 2 Fraction of Inspired Oxygen 08/15/24 02:00 08/15/24 04:00 08/15/24 04:00 Temperature 98.7 F Pulse Rate 72 76 Respiratory Rate 16 Blood Pressure 137/83 Pulse Oximetry 98 95 Oxygen Delivery Nasal Cannula Oxygen Flow Rate 1 Fraction of Inspired Oxygen 08/15/24 04:00 08/15/24 06:00 08/15/24 06:00 Temperature 98.8 F 98.6 F Pulse Rate 73 69 69 Respiratory Rate 13 12 Blood Pressure 135/79 136/94 H Pulse Oximetry 95 92 Oxygen Delivery Oxygen Flow Rate Fraction of Inspired Oxygen 08/15/24 06:30 08/15/24 08:00 08/15/24 08:00 Temperature Pulse Rate 79 Respiratory Rate 18 Blood Pressure Pulse Oximetry 93 Oxygen Delivery Room Air Room Air Oxygen Flow Rate Fraction of Inspired Oxygen 99 08/15/24 09:03 08/15/24 09:05 Temperature Pulse Rate 101 H 108 H Respiratory Rate Blood Pressure Pulse Oximetry Oxygen Delivery Oxygen Flow Rate Fraction of Inspired Oxygen Intake/Output Intake/Output: Intake & Output 08/12/24 08/13/24 08/14/24 08/15/24 23:59 23:59 23:59 23:59 Intake Total 5982.7 2356.9 1387.0 540 Output Total 2200 2320 3700 450 Balance 3782.7 36.9 -2313.0 90 Meds/Results Medications: Active Medications Generic Name Dose Route Start Last Admin Trade Name Freq PRN Reason Stop Dose Admin Acetaminophen 650 mg 08/11/24 12:28 Acetaminophen 650 Mg Suppository RECTAL Q6H PRN Mild Pain (1-3) or Fever Albuterol/Ipratropium 3 ml 08/11/24 14:15 08/15/24 07:57 Ipratropium 0.5 Mg/Albuterol Sulfate 2.5 Mg Ampul.Neb 3 Ml INHALATION 3 ml Q6HRT DAKSHA Administration Apixaban 5 mg 08/11/24 21:00 08/15/24 09:03 Apixaban 5 Mg Tablet PO 5 mg Q12HR DAKSHA Administration Dextrose 12.5 gm 08/11/24 14:25 Dextrose 50% 25 Gm/50 Ml Syringe IV PUSH PRN PRN Hypoglycemia Protocol Digoxin 250 mcg 08/14/24 09:00 08/15/24 09:03 Digoxin 250 Mcg Tablet PO 250 mcg QAM DAKSHA Administration Folic Acid 1 mg 08/14/24 09:00 08/15/24 09:03 Folic Acid 1 Mg Tablet PO 1 mg DAILY DAKSHA Administration Glucagon 1 mg 08/11/24 14:25 Glucagon For Inj 1 Mg Vial IM PRN PRN Hypoglycemia Protocol Glucose 15 gm 08/11/24 14:25 Glucose Oral Gel 15 Gm Of Glucse In 37.5 Gm Tube PO PRN PRN Hypoglycemia Protocol Dextrose 1,000 mls @ 100 mls/hr 08/11/24 14:25 Dextrose 5% 1,000 Ml IVPB PRN PRN Hypoglycemia Protocol Meropenem 1 gm in 100 mls @ 200 mls/hr 08/14/24 07:20 08/15/24 06:02 IVPB Infused Q8HR DAKSHA Infusion Metoprolol Succinate 100 mg 08/14/24 09:00 08/15/24 09:05 Metoprolol Succinate Ext Rel 100 Mg Tabcr PO 100 mg QAM DAKSHA Administration Multi-Ingred Cream/Lotion/Oil/Oint 1 applic 08/13/24 21:00 08/15/24 09:04 Mineral Oil/White Petrolatum Ointment EACH EYE Not Given Q12HR DAKSHA Pantoprazole Sodium 40 mg 08/11/24 14:05 08/15/24 09:04 Pantoprazole Sodium Iv 40 Mg Vial IV PUSH 40 mg QAM DAKSHA Administration Sacubitril/Valsartan 1 tab 08/14/24 09:00 08/15/24 09:03 Sacubitril/Valsartan 24-26 Mg Tablet PO 1 tab Q12HR DAKSHA Administration Sodium Chloride 10 ml 08/11/24 14:00 08/15/24 05:31 Central Line Flush IV PUSH 10 ml Q8HR DAKSHA Administration Sodium Chloride 20 ml 08/11/24 13:52 Central Line Flush IV PUSH PRN PRN after blood draws Sulfasalazine 500 mg 08/14/24 13:25 08/15/24 09:03 Sulfasalazine 500 Mg Tablet PO 500 mg QID DAKSHA Administration Radiology Results: ITS Impressions Chest/Abdomen/Pelvis CT 08/11/24 11:39 IMPRESSION: Left lower lobe consolidation and right basilar atelectasis. No hollow or solid organ injury. No acute fractures. Venous Doppler Study 08/11/24 15:11 IMPRESSION: 1: No lower extremity deep venous thrombosis. Renal Ultrasound 08/11/24 15:22 IMPRESSION: No hydronephrosis or renal calculi. Examination is unchanged from CT study performed 3 hours earlier Ankle X-Ray 08/11/24 18:33 IMPRESSION: Fracture of the lateral malleolus. Knee CT 08/11/24 19:16 IMPRESSION: Postoperative changes in the patella with destructive changes and fragmentation. multilocular abscess seen in the suprapatellar bursa. Synovitis seen in the left knee joint. was notified with the result of the patient at 7:35 PM on August 11, 2024. Chest X-Ray 08/14/24 05:48 Impression: 1: Persistent bibasilar airspace disease which may represent pneumonia and/or atelectasis. Head CT 08/14/24 18:42 IMPRESSION: No acute intracranial findings. 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 Right occipital shunt tube with the tip in the right lateral ventricle. Labs Labs: Laboratory Results - last 24 hr 08/11/24 08/11/24 08/14/24 16:08 19:10 09:25 WBC RBC Hgb Hct MCV MCH MCHC RDW Plt Count MPV Immature Gran % (Auto) Neut % (Auto) Lymph % (Auto) [place] % (Auto) Eos % (Auto) Baso % (Auto) Lymph # (Auto) [place] # (Auto) Eos # (Auto) Baso # (Auto) Abs Immat Gran (auto) Absolute Neuts (auto) Absolute Nucleated RBC Nucleated RBC % Puncture Site Right radial ABG pH 7.416 ABG pCO2 36.0 ABG pO2 99.3 ABG PO2/FiO2 Ratio 3.31 ABG HCO3 22.6 ABG O2 Saturation 97.6 ABG O2 Content 16.9 ABG Base Excess -1.5 A-a Gradient 72.3 Oxyhemoglobin 96.5 Total Hemoglobin 12.4 O2 Delivery Device Ventilator O2 Liters/Min Not Reportable Minute Volume Not Reportable Vent Rate Not Reportable Vent Mode Spontaneous FiO2 30 Tidal Volume Not Reportable PEEP 5 Peak Inspir Pressure Not Reportable Pressure Support 8 Sodium Potassium Chloride Carbon Dioxide Anion Gap BUN Creatinine Estim Creat Clear Calc Estimated GFR Glucose Calcium Phosphorus Magnesium Total Bilirubin AST ALT Alkaline Phosphatase Total Protein Albumin Vancomycin Trough Ur L.pneumophila Ag Not detected Urine Pneumococcal Ag Not detected 08/14/24 08/15/24 20:10 04:15 WBC 13.5 H RBC 3.44 L Hgb 10.8 L Hct 33.0 L MCV 95.9 MCH 31.4 MCHC 32.7 RDW 15.1 H Plt Count 181 MPV 9.8 Immature Gran % (Auto) 1.0 H Neut % (Auto) 78.1 H Lymph % (Auto) 11.7 L [place] % (Auto) 7.6 Eos % (Auto) 1.2 Baso % (Auto) 0.4 Lymph # (Auto) 1.58 [place] # (Auto) 1.0 H Eos # (Auto) 0.2 Baso # (Auto) 0.1 Abs Immat Gran (auto) 0.14 H Absolute Neuts (auto) 10.6 H Absolute Nucleated RBC 0.000 Nucleated RBC % 0.0 Puncture Site ABG pH ABG pCO2 ABG pO2 ABG PO2/FiO2 Ratio ABG HCO3 ABG O2 Saturation ABG O2 Content ABG Base Excess A-a Gradient Oxyhemoglobin Total Hemoglobin O2 Delivery Device O2 Liters/Min Minute Volume Vent Rate Vent Mode FiO2 Tidal Volume PEEP Peak Inspir Pressure Pressure Support Sodium 139 Potassium 3.4 Chloride 106 Carbon Dioxide 26 Anion Gap 7 BUN 30 H Creatinine 0.70 Estim Creat Clear Calc 116 Estimated GFR > 60 Glucose 110 Calcium 8.9 Phosphorus 3.5 Magnesium 1.9 Total Bilirubin 0.6 AST 82 H ALT 54 H Alkaline Phosphatase 49 Total Protein 6.0 L Albumin 3.7 Vancomycin Trough 6.1 L Ur L.pneumophila Ag Urine Pneumococcal Ag Quality VTE Prophylaxis VTE prophylaxis: pharmacologic ordered
[2024-08-15] MEDS: azaTHIOprine 50 MG TABLET 100 MG PO (10:27)
[2024-08-15] MEDS: SPIRONOLACTONE 25 MG TABLET PO (10:27)
[2024-08-15] MEDS: CALCIUM CARBONATE (OSCAL) 500 MG TABLET PO ×2 (10:27→18:41)
[2024-08-15] MEDS: THERAPEUTIC MULTIVITAMINS/MINERALS TAB (*BKC) 1 TABLET PO (10:27)
[2024-08-15] MEDS: FUROSEMIDE 40 MG TABLET PO (10:27)
[2024-08-15] MEDS: TAMSULOSIN HCL 0.4 MG CAPSULE PO (10:27)
[2024-08-15] MEDS: EMPAGLIFLOZIN 10 MG TABLET PO (10:27)
[2024-08-16] VITALS (14 sets, daily range): BP systolic 144–162; BP diastolic 92–99; PULSE 68–99; RESP 17–28; TEMP 36.4–37.5; O2SAT 95–100; BMI 26.9
[2024-08-16] MEDS: IPRATROPIUM 0.5 MG/ALBUTEROL SULFATE 2.5 MG AMPUL.NEB 3 ML INHALATION ×3 (02:28→15:01)
[2024-08-16] MEDS: MEROPENEM 1 GM/NS 100 ML 1 GM/100 ML BAG IVPB ×3 (05:27→22:28)
[2024-08-16 06:43] LABS: Basophils Absolute Auto 0.1 K/mm3 (0.0-0.1); Basophils Percent Auto 0.6 % (0.2-1.2); Eosinophils Absolute Auto 0.3 K/mm3 (0-0.3); Eosinophils Percent Auto 1.8 % (0-4.4); Hematocrit 37.4 % (42.0-52.0); Hemoglobin 12.1 g/dL (14.0-18.0); Immature Granulocyte Percent A 1.4 % (0-0.5); Lymphocytes Absolute Auto 1.27 K/mm3 (0.9-3.2); Lymphocytes Percent Auto 8.9 % (18.3-44.2); Mean Corpuscular HGB Conc 32.4 g/dl (32-36); Mean Corpuscular Hemoglobin 30.9 pg (26-34); Mean Corpuscular Volume 95.4 fl (80-100); Mean Platelet Volume 10.1 fl (7.4-10.4); Monocytes Absolute Auto 1.2 K/mm3 (0.1-0.6); Monocytes Percent Auto 8.3 % (2.6-8.5); Neutrophils Absolute Auto 11.3 K/mm3 (1.3-6.7); Platelet Count Result 203 k/mm3 (150-375); Red Blood Count 3.92 M/mm3 (4.6-6.20); Red Cell Distribution Width 14.6 % (11.5-14.5); White Blood Count 14.3 K/mm3 (4.5-10.0)
[2024-08-16 06:52] LABS: Alanine Aminotransferase 51 U/L (6-50); Albumin Level 3.9 g/dL (3.5-5.1); Alkaline Phosphatase 62 U/L (38-126); Anion Gap 7 mmol/L (4-12); Aspartate Amino Transferase 64 U/L (17-59); Bilirubin,Total 0.8 mg/dL (0.2-1.3); Blood Urea Nitrogen 23 mg/dL (9-20); Calcium 9.3 mg/dL (8.4-10.2); Carbon Dioxide 29 mmol/L (22-30); Chloride 103 mmol/L (98-107); Estimated CRCL calculation 144 ml/min; Estimated Glomerular Filt Rate > 60; Glucose 103 mg/dL (65-110); Magnesium 1.8 mg/dL (1.6-2.3); Phosphorus 3.5 mg/dL (2.5-4.5); Potassium 3.6 mmol/L (3.4-5.0); Sodium 139 mmol/L (137-145)
--- NOTE | 2024-08-16 07:18 | PCRCNOTE ---
ABG on 08/11/2024 while in ED was delayed due to pt being a hard stick and very low blood pressure.
[2024-08-16] MEDS: POTASSIUM CHLORIDE 20 MEQ ER TABLET 40 MEQ PO (08:46)
[2024-08-16] MEDS: MAGNESIUM SULF 2 GM/WATER 50ML 2 GM/50 ML BAG IVPB (08:46)
[2024-08-16] MEDS: CALCIUM CARBONATE (OSCAL) 500 MG TABLET PO ×2 (08:47→16:51)
[2024-08-16] MEDS: DIGOXIN 250 MCG TABLET PO (08:47)
[2024-08-16] MEDS: APIXABAN 5 MG TABLET PO ×2 (08:47→21:25)
[2024-08-16] MEDS: azaTHIOprine 50 MG TABLET 100 MG PO (08:47)
[2024-08-16] MEDS: FUROSEMIDE 40 MG TABLET PO (08:48)
[2024-08-16] MEDS: FOLIC ACID 1 MG TABLET PO (08:48)
[2024-08-16] MEDS: METOPROLOL SUCCINATE EXT REL 100 MG TABCR 200 MG PO (08:48)
[2024-08-16] MEDS: EMPAGLIFLOZIN 10 MG TABLET PO (08:48)
[2024-08-16] MEDS: sulfaSALAzine 500 MG TABLET PO ×4 (08:49→21:25)
[2024-08-16] MEDS: TAMSULOSIN HCL 0.4 MG CAPSULE PO (08:49)
[2024-08-16] MEDS: THERAPEUTIC MULTIVITAMINS/MINERALS TAB (*BKC) 1 TABLET PO (08:49)
[2024-08-16] MEDS: SPIRONOLACTONE 25 MG TABLET PO (08:49)
[2024-08-16] MEDS: SACUBITRIL/VALSARTAN 24-26 MG TABLET 1 TAB PO ×2 (08:49→21:25)
[2024-08-16] MEDS: PANTOPRAZOLE SODIUM IV 40 MG VIAL IV PUSH (08:49)
--- NOTE | 2024-08-16 08:56 | PM.IMPN ---
Progress Note: A&P Assessment and Plan (1) Septic shock: Code(s): A41.9 - Sepsis, unspecified organism; R65.21 - Severe sepsis with septic shock Status: Acute Assessment and Plan: 08/11: Patient admitted with SVT, status post cardioversion by EMS. Was found down at home, with vomit on himself, respiratory distress, -patient was found to be hypotensive, likely related to septic shock, SVT, aspiration pneumonia, UTI -patient was given 1 L IV fluid bolus in the ER, will give additional IV fluid bolus in the ICU given history of cardiomyopathy with EF of 35-40% -OFF ALL PRESSORS -wean stress dose steroid -08/11: Blood cultures growing ESBL Klebsiella resistant to cefepime -08/11: Urine cultures growing ESBL Klebsiella -08/11: Sputum cultures growth of normal oropharyngeal bambi -08/12: Left knee aspiration culture, no growth 08/13: Repeat blood culture: No growth x2 (08/11) -08/12: Flagyl discontinued -08/13: Doxycycline Discontinued -08/14: Discontinue cefepime as ESBL Klebsiella resistant to cefepime, started meropenem, will continue (2) Acute respiratory failure: Code(s): J96.00 - Acute respiratory failure, unspecified whether with hypoxia or hypercapnia Status: Acute Assessment and Plan: Acute respiratory failure could be related to SVT, hypotension, septic shock, aspiration pneumonia, UTI -08/11: Intubated in the ED -08/14: Extubated -continue DuoNeb -off IV fluids -continue diuresis (3) Acute alteration in mental status: Code(s): R41.82 - Altered mental status, unspecified Status: Acute Assessment and Plan: RESOLVED Likely related to hypotension, SVT, infection -will treat underlying cause -CT scan of the brain did not show any acute intracranial abnormality -08/12: Patient more alert and awake this morning and follows simple commands and nods to questions (4) Pneumonia: Code(s): J18.9 - Pneumonia, unspecified organism Status: Acute Assessment and Plan: Pneumonia as seen on CT scan of the chest abdomen pelvis -antibiotics as above -patient was negative for influenza, RSV and SARS-CoV-2 PCR -08/11: urine Legionella and urine pneumococcal antigens- Not detected 08/11: CT scan of the chest/abdomen/pelvis showed left lower lobe consolidation and right basal atelectasis, no all or solid organ injury, no acute fracture. (5) UTI (urinary tract infection): Qualifiers: Urinary tract infection type: acute cystitis Hematuria presence: without hematuria Qualified Code(s): N30.00 - Acute cystitis without hematuria Code(s): N39.0 - Urinary tract infection, site not specified Status: Acute Assessment and Plan: UA was reflective of UTI -patient has a history of UTI with Pseudomonas (05/16/2024) which was resistant to fluoroquinolones -continue antibiotics as above -urine cultures growing ESBL KLEBSIELLA (6) Systolic heart failure: Qualifiers: Heart failure chronicity: chronic Qualified Code(s): I50.22 - Chronic systolic (congestive) heart failure Code(s): I50.20 - Unspecified systolic (congestive) heart failure Status: Chronic Assessment and Plan: Patient with systolic heart failure with a EF of 35-40% Patient has been on GDMT, -CONTINUE Entresto, metoprolol, digoxin, Lasix , spironolactone, Jardiance, digoxin Off all IV fluids 05/15/2024: Echocardiogram Summary 1. Complete two-dimensional, color flow and Doppler transthoracic echocardiogram is performed. 2. Left ventricular chamber dimension is mildly enlarged. 3. Left ventricular systolic function is moderately reduced, estimated at 35-40%. 4. There is mildly increased left ventricular wall thickness. 5. The left ventricular diastolic function is abnormal. 6. Left atrial chamber dimension is severely enlarged. 7. Right atrial chamber dimension is mildly enlarged. 8. There is moderate to severe mitral valve regurgitation. 9. There is mild tricuspid valve regurgitation. 10. Severe pulmonary hypertension, estimated pulmonary arterial systolic pressure is 72 mmHg. 11. There is mild pulmonic regurgitation. 12. Pleural effusion seen. (7) Pulmonary hypertension: Code(s): I27.20 - Pulmonary hypertension, unspecified Status: Acute Assessment and Plan: Severe pulmonary hypertension (8) Mitral regurgitation: Code(s): I34.0 - Nonrheumatic mitral (valve) insufficiency Status: Acute Assessment and Plan: Moderate to severe mitral valve regurg, -caution with IV fluids (9) SVT (supraventricular tachycardia): Code(s): I47.10 - Supraventricular tachycardia, unspecified Status: Acute Assessment and Plan: Patient presented with SVT, was cardioverted by EMS according the triage note, heart rates were in the 160s to 240s, with hemodynamic instability -patient does have a history of AFib RVR on Eliquis at home -restarted Eliquis on admission (10) Acute kidney injury: Code(s): N17.9 - Acute kidney failure, unspecified Status: Acute Assessment and Plan: Acute kidney injury, likely septic shock, hypotension, ATN,, rhabdomyolysis -baseline creatinine is 0.50-0.80 -creatinine this admission is 1.70 -patient has received adequate amount of IV fluids -monitor urine output, renal function electrolytes -urine lytes did not reveal prerenal picture - urine eosinophils were negative, CK levels were 1099 -028: Renal ultrasound: No hydronephrosis or renal calculi -creatinine has normalized, adequate urine output (11) Atrial fibrillation with rapid ventricular response: Code(s): I48.91 - Unspecified atrial fibrillation Status: Acute Assessment and Plan: On Eliquis at home, will continue -currently rate controlled in sinus rhythm -continue to monitor (12) Swollen L knee: Code(s): M25.462 - Effusion, left knee Status: Acute Assessment and Plan: Swelling of the left knee with bogginess, fluctuation, warmth, likely septic joint -continue antibiotics 08/12: Appreciate orthopedic evaluation and recommendations, left knee aspiration was performed, -08/12: Left knee aspiration culture, no growth 08/11/2024: CT scan of the left knee IMPRESSION: Postoperative changes in the patella with destructive changes and fragmentation. multilocular abscess seen in the suprapatellar bursa. Synovitis seen in the left knee joint (13) Ankle fracture, left: Qualifiers: Encounter type: initial encounter Fracture type: closed Qualified Code(s): S82.892A - Other fracture of left lower leg, initial encounter for closed fracture Code(s): S82.892A - Other fracture of left lower leg, initial encounter for closed fracture Status: Acute Assessment and Plan: Left ankle swelling X-ray of the left ankle showed fracture of the lateral malleolus Appreciate orthopedic evaluation and recommendations, ice pack and elevated. Once he is more stable they recommended a fracture boot for out of bed with protected weight-bearing. -once he is extubated will get PT/OT to evaluate the patient Plan DVT prophylaxis: Apixaban Stress ulcer prophylaxis: Protonix Nutrition: continue heart healthy, low-sodium diet PT/OT following the patient Code Status: Full code Discussed with patient's mother and updated with patient's condition and plan of care. Due to a high probability of clinically significant, life threatening deterioration, the patient required my highest level of preparedness to intervene emergently and I personally spent this critical care time directly and personally managing the patient. This critical care time included obtaining a history; examining the patient; pulse oximetry; ordering and review of studies; arranging urgent treatment with development of a management plan; evaluation of patient's response to treatment; frequent reassessment; and discussions with other providers. It was exclusive of separately billable procedures and treating other patients and teaching time. Please see Assessment and Plan section and the rest of the note for further information on patient assessment and treatment This dictation may have been done utilizing a voice recognition system. Attempts have been made to correct errors. However, there may be uncorrected grammatical, spelling, and recognitions errors present. Subjective Date/time seen: 08/16/24 08:56 Interval history: 48-year-old male presented with Acute respiratory failure, septic shock, pneumonia, SVT, fall, altered mental status, left ankle fracture, left knee swelling 08/11: Intubated 08/12: Status post aspiration of the left knee effusion 08/14: Extubated Patient being seen for hospitalist group: Patient seen and examined, is awake, alert, eating his breakfast, denies any chest pain, shortness of breath, abdominal pain, nausea vomiting. States he feels better, night was uneventful, good urine output, negative fluid balance, blood pressures have been stable, afebrile Review of Systems Review of Systems: All systems reviewed & are unremarkable except as noted in HPI and below Exam Narrative: General: Patient is awake, in no acute distress HEENT:? Left pupil still slightly larger than the right, both are reactive to light, sclera is clear, Neck:? Supple Respiratory:? Clear to auscultation bilaterally, decreased at bases, no wheezing Cardiac:? S1-S2 normal, regular rate and rhythm Abdomen:? Soft, nontender, nondistended, normoactive bowel sounds Extremities:? Left knee is less swollen, with ecchymosis seems to have improved, Left ankle swollen and warm Neuro:? Patient is on room air, follows simple commands, able to answer questions appropriately Skin:? warm and dry Psych:? Normal mentation and affect Objective Data Vital Signs Vital Signs: Vital Signs - 24 hr 08/15/24 09:03 08/15/24 09:05 08/15/24 12:00 Temperature 99.0 F Pulse Rate 101 H 108 H 98 Respiratory Rate 16 Blood Pressure 152/85 H Pulse Oximetry 93 Oxygen Delivery Fraction of Inspired Oxygen 08/15/24 12:59 08/15/24 16:00 08/15/24 16:00 Temperature 99.1 F Pulse Rate 94 91 91 Respiratory Rate 20 12 Blood Pressure 133/84 Pulse Oximetry 93 Oxygen Delivery Fraction of Inspired Oxygen 08/15/24 19:52 08/15/24 19:53 08/15/24 20:00 Temperature Pulse Rate 83 86 83 Respiratory Rate 20 20 Blood Pressure Pulse Oximetry 94 Oxygen Delivery Room Air Fraction of Inspired Oxygen 21 08/15/24 20:00 08/15/24 20:00 08/15/24 20:01 Temperature 99.1 F Pulse Rate 83 90 Respiratory Rate 15 20 Blood Pressure 144/88 H Pulse Oximetry 94 94 Oxygen Delivery Room Air Fraction of Inspired Oxygen 08/16/24 00:00 08/16/24 00:00 08/16/24 02:29 Temperature 98.8 F Pulse Rate 82 82 68 Respiratory Rate 17 20 Blood Pressure 151/99 H Pulse Oximetry 95 Oxygen Delivery Fraction of Inspired Oxygen 08/16/24 02:38 08/16/24 04:00 08/16/24 07:54 Temperature Pulse Rate 69 99 Respiratory Rate 20 Blood Pressure Pulse Oximetry 97 Oxygen Delivery Room Air Fraction of Inspired Oxygen 08/16/24 07:54 08/16/24 08:00 08/16/24 08:00 Temperature Pulse Rate 75 80 80 Respiratory Rate 24 H 24 H Blood Pressure Pulse Oximetry 100 Oxygen Delivery Room Air Fraction of Inspired Oxygen 21 08/16/24 08:00 08/16/24 08:01 08/16/24 08:47 Temperature 99.5 F Pulse Rate 80 84 88 Respiratory Rate 24 H 28 H Blood Pressure 162/93 H Pulse Oximetry 100 Oxygen Delivery Fraction of Inspired Oxygen 08/16/24 08:48 Temperature Pulse Rate 88 Respiratory Rate Blood Pressure Pulse Oximetry Oxygen Delivery Fraction of Inspired Oxygen Intake/Output Intake/Output: Intake & Output 05/30/25 08/14/24 08/15/24 08/16/24 23:59 23:59 23:59 23:59 Intake Total 2356.9 1387.0 2020 600 Output Total 9207 5939 4580 153 Balance 36.9 -2313.0 -430 -250 Meds/Results Medications: Active Medications Generic Name Dose Route Start Last Admin Trade Name Freq PRN Reason Stop Dose Admin Acetaminophen 650 mg 08/11/24 12:28 Acetaminophen 650 Mg Suppository RECTAL Q6H PRN Mild Pain (1-3) or Fever Albuterol/Ipratropium 3 ml 08/11/24 14:15 08/16/24 07:54 Ipratropium 0.5 Mg/Albuterol Sulfate 2.5 Mg Ampul.Neb 3 Ml INHALATION 3 ml Q6HRT DAKSHA Administration Apixaban 5 mg 08/11/24 21:00 08/16/24 08:47 Apixaban 5 Mg Tablet PO 5 mg Q12HR DAKSHA Administration Azathioprine 100 mg 08/15/24 09:30 08/16/24 08:47 Azathioprine 50 Mg Tablet PO 100 mg DAILY DAKSHA Administration Calcium Carbonate 500 mg 08/15/24 09:00 08/16/24 08:47 Calcium Carbonate (Oscal) 500 Mg Tablet PO 500 mg BID DAKSHA Administration Dextrose 12.5 gm 08/11/24 14:25 Dextrose 50% 25 Gm/50 Ml Syringe IV PUSH PRN PRN Hypoglycemia Protocol Digoxin 250 mcg 08/14/24 09:00 08/16/24 08:47 Digoxin 250 Mcg Tablet PO 250 mcg QAM DAKSHA Administration Empagliflozin 10 mg 08/15/24 09:30 08/16/24 08:48 Empagliflozin 10 Mg Tablet PO 10 mg DAILY DAKSHA Administration Folic Acid 1 mg 08/14/24 09:00 08/16/24 08:48 Folic Acid 1 Mg Tablet PO 1 mg DAILY DAKSHA Administration Furosemide 40 mg 08/15/24 09:30 08/16/24 08:48 Furosemide 40 Mg Tablet PO 40 mg DAILY DAKSHA Administration Glucagon 1 mg 08/11/24 14:25 Glucagon For Inj 1 Mg Vial IM PRN PRN Hypoglycemia Protocol Glucose 15 gm 08/11/24 14:25 Glucose Oral Gel 15 Gm Of Glucse In 37.5 Gm Tube PO PRN PRN Hypoglycemia Protocol Dextrose 1,000 mls @ 100 mls/hr 08/11/24 14:25 Dextrose 5% 1,000 Ml IVPB PRN PRN Hypoglycemia Protocol Meropenem 1 gm in 100 mls @ 200 mls/hr 08/14/24 07:20 08/16/24 05:57 IVPB Infused Q8HR DAKSHA Infusion Metoprolol Succinate 200 mg 08/16/24 09:00 08/16/24 08:48 Metoprolol Succinate Ext Rel 100 Mg Tabcr PO 200 mg QAM DAKSHA Administration Multivitamins/Calcium 1 tablet 08/15/24 09:30 08/16/24 08:49 Therapeutic Multivitamins/Minerals Tab (*Bkc) PO 1 tablet DAILY DAKSHA Administration [Osteo Bi-Flex] 1 each 08/15/24 09:30 XX 08/16/24 09:29 PRN PRN PROTOCOL Pantoprazole Sodium 40 mg 08/11/24 14:05 08/16/24 08:49 Pantoprazole Sodium Iv 40 Mg Vial IV PUSH 40 mg QAM DAKSHA Administration Sacubitril/Valsartan 1 tab 08/14/24 09:00 08/16/24 08:49 Sacubitril/Valsartan 24-26 Mg Tablet PO 1 tab Q12HR DAKSHA Administration Sodium Chloride 20 ml 08/11/24 13:52 Central Line Flush IV PUSH PRN PRN after blood draws Spironolactone 25 mg 08/15/24 09:30 08/16/24 08:49 Spironolactone 25 Mg Tablet PO 25 mg QAM DAKSHA Administration Sulfasalazine 500 mg 08/14/24 13:25 08/16/24 08:49 Sulfasalazine 500 Mg Tablet PO 500 mg QID DAKSHA Administration Tamsulosin HCl 0.4 mg 08/15/24 09:30 08/16/24 08:49 Tamsulosin Hcl 0.4 Mg Capsule PO 0.4 mg QAM DAKSHA Administration Radiology Results: ITS Impressions Chest/Abdomen/Pelvis CT 08/11/24 11:39 IMPRESSION: Left lower lobe consolidation and right basilar atelectasis. No hollow or solid organ injury. No acute fractures. Venous Doppler Study 08/11/24 15:11 IMPRESSION: 1: No lower extremity deep venous thrombosis. Renal Ultrasound 08/11/24 15:22 IMPRESSION: No hydronephrosis or renal calculi. Examination is unchanged from CT study performed 3 hours earlier Ankle X-Ray 08/11/24 18:33 IMPRESSION: Fracture of the lateral malleolus. Knee CT 08/11/24 19:16 IMPRESSION: Postoperative changes in the patella with destructive changes and fragmentation. multilocular abscess seen in the suprapatellar bursa. Synovitis seen in the left knee joint. was notified with the result of the patient at 7:35 PM on August 11, 2024. Chest X-Ray 08/14/24 05:48 Impression: 1: Persistent bibasilar airspace disease which may represent pneumonia and/or atelectasis. Head CT 08/14/24 18:42 IMPRESSION: No acute intracranial findings. 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 Right occipital shunt tube with the tip in the right lateral ventricle. Labs Labs: Laboratory Results - last 24 hr 08/16/24 06:34 WBC 14.3 H RBC 3.92 L Hgb 12.1 L Hct 37.4 L MCV 95.4 MCH 30.9 MCHC 32.4 RDW 14.6 H Plt Count 203 MPV 10.1 Immature Gran % (Auto) 1.4 H Neut % (Auto) 79.0 H Lymph % (Auto) 8.9 L [place] % (Auto) 8.3 Eos % (Auto) 1.8 Baso % (Auto) 0.6 Lymph # (Auto) 1.27 [place] # (Auto) 1.2 H Eos # (Auto) 0.3 Baso # (Auto) 0.1 Abs Immat Gran (auto) 0.20 H Absolute Neuts (auto) 11.3 H Absolute Nucleated RBC 0.000 Nucleated RBC % 0.0 Sodium 139 Potassium 3.6 Chloride 103 Carbon Dioxide 29 Anion Gap 7 BUN 23 H Creatinine 0.55 L Estim Creat Clear Calc 144 Estimated GFR > 60 Glucose 103 Calcium 9.3 Phosphorus 3.5 Magnesium 1.8 Total Bilirubin 0.8 AST 64 H ALT 51 H Alkaline Phosphatase 62 Total Protein 7.0 Albumin 3.9 Quality VTE Prophylaxis VTE prophylaxis: pharmacologic ordered
--- NOTE | 2024-08-16 18:25 | PC.NURSE ---
Dipti Brito (mother) called and notified that patient will be moving to room 321.
--- NOTE | 2024-08-16 18:51 | PC.NURSE ---
Patient transfered to room 321 per bed. Report called to SABRINA Chu. All questions answered. Belongings sent with patient.
--- NOTE | 2024-08-16 18:59 | PC.NURSE ---
This patient, Moose Miranda, was received from [[id number] ] on 08/16/24 at 1859. Patient/family oriented to unit policies and routines
[2024-08-17] VITALS (18 sets, daily range): BP systolic 131–141; BP diastolic 78–91; PULSE 62–95; RESP 18–22; TEMP 36.4–36.6; O2SAT 90–98
[2024-08-17] MEDS: IPRATROPIUM 0.5 MG/ALBUTEROL SULFATE 2.5 MG AMPUL.NEB 3 ML INHALATION ×4 (02:36→21:22)
--- NOTE | 2024-08-17 02:45 | PCRCNOTE ---
Window of time for administration has passed. See next scheduled administration.
[2024-08-17] MEDS: MEROPENEM 1 GM/NS 100 ML 1 GM/100 ML BAG IVPB ×3 (05:12→21:21)
[2024-08-17 06:42] LABS: Basophils Absolute Auto 0.1 K/mm3 (0.0-0.1); Basophils Percent Auto 0.6 % (0.2-1.2); Eosinophils Absolute Auto 0.3 K/mm3 (0-0.3); Eosinophils Percent Auto 2.1 % (0-4.4); Hematocrit 36.7 % (42.0-52.0); Hemoglobin 11.7 g/dL (14.0-18.0); Immature Granulocyte Absolute 0.14 K/mm3 (0.00-0.031); Immature Granulocyte Percent A 1.2 % (0-0.5); Lymphocytes Absolute Auto 1.57 K/mm3 (0.9-3.2); Lymphocytes Percent Auto 13.4 % (18.3-44.2); Mean Corpuscular HGB Conc 31.9 g/dl (32-36); Mean Corpuscular Volume 97.3 fl (80-100); Mean Platelet Volume 10.9 fl (7.4-10.4); Monocytes Absolute Auto 1.1 K/mm3 (0.1-0.6); Monocytes Percent Auto 9.1 % (2.6-8.5); Neutrophils Absolute Auto 8.7 K/mm3 (1.3-6.7); Neutrophils Percent Auto 73.6 % (45.5-73.1); Platelet Count Result 206 k/mm3 (150-375); Red Blood Count 3.77 M/mm3 (4.6-6.20); Red Cell Distribution Width 14.6 % (11.5-14.5); White Blood Count 11.8 K/mm3 (4.5-10.0)
[2024-08-17 06:54] LABS: Alanine Aminotransferase 46 U/L (6-50); Albumin Level 3.8 g/dL (3.5-5.1); Alkaline Phosphatase 61 U/L (38-126); Anion Gap 6 mmol/L (4-12); Aspartate Amino Transferase 50 U/L (17-59); Bilirubin,Total 0.8 mg/dL (0.2-1.3); Blood Urea Nitrogen 23 mg/dL (9-20); Calcium 9.3 mg/dL (8.4-10.2); Carbon Dioxide 32 mmol/L (22-30); Chloride 102 mmol/L (98-107); Estimated CRCL calculation 147 ml/min; Estimated Glomerular Filt Rate > 60; Glucose 100 mg/dL (65-110); Magnesium 1.9 mg/dL (1.6-2.3); Phosphorus 2.9 mg/dL (2.5-4.5); Potassium 3.9 mmol/L (3.4-5.0); Sodium 140 mmol/L (137-145)
[2024-08-17] MEDS: sulfaSALAzine 500 MG TABLET PO ×4 (08:55→21:21)
[2024-08-17] MEDS: DIGOXIN 250 MCG TABLET PO (08:55)
[2024-08-17] MEDS: SPIRONOLACTONE 25 MG TABLET PO (08:55)
[2024-08-17] MEDS: FUROSEMIDE 40 MG TABLET PO (08:55)
[2024-08-17] MEDS: azaTHIOprine 50 MG TABLET 100 MG PO (08:55)
[2024-08-17] MEDS: METOPROLOL SUCCINATE EXT REL 100 MG TABCR 200 MG PO (08:55)
[2024-08-17] MEDS: CALCIUM CARBONATE (OSCAL) 500 MG TABLET PO ×2 (08:55→18:20)
[2024-08-17] MEDS: PANTOPRAZOLE SODIUM IV 40 MG VIAL IV PUSH (08:55)
[2024-08-17] MEDS: SACUBITRIL/VALSARTAN 24-26 MG TABLET 1 TAB PO ×2 (08:55→21:21)
[2024-08-17] MEDS: APIXABAN 5 MG TABLET PO ×2 (08:56→21:21)
[2024-08-17] MEDS: TAMSULOSIN HCL 0.4 MG CAPSULE PO (08:56)
[2024-08-17] MEDS: THERAPEUTIC MULTIVITAMINS/MINERALS TAB (*BKC) 1 TABLET PO (08:56)
[2024-08-17] MEDS: EMPAGLIFLOZIN 10 MG TABLET PO (08:56)
[2024-08-17 09:05] LABS: Glucose Point of Care 115 mg/dl (65-105)
[2024-08-17] MEDS: FOLIC ACID 1 MG TABLET PO (14:43)
--- NOTE | 2024-08-17 15:18 | PM.PNORT ---
Progress Note: A&P Assessment and Plan (1) Swollen L knee: Code(s): M25.462 - Effusion, left knee Status: Acute Assessment and Plan: A CT scan of the left knee reveals postoperative changes in the patella with destructive changes and fragmentation and a possible multilocular abscess seen in the suprapatellar bursa. Patient with known history of a left patella fracture and more than 1 surgery at [facility]. Dr. Singh performed aspiration of the left knee with a hemarthrosis and fluid sent for stat Gram stain and culture. Gram stain and culture negative for organisms to date. Okay to begin PWB of the LLE with boot. PT/OT. Possible need for MANAV at d/c given history of multiple falls recently. (2) Ankle fracture, left: Qualifiers: Encounter type: initial encounter Fracture type: closed Qualified Code(s): S82.892A - Other fracture of left lower leg, initial encounter for closed fracture Code(s): S82.892A - Other fracture of left lower leg, initial encounter for closed fracture Status: Acute Assessment and Plan: Radiographs of the left ankle reveal a nondisplaced lateral malleolus fracture with possible new callus formation. Per the patient's family, this injury occurred initially in the middle of May. Fracture boot. PWB. PT/OT. Iice, elevate. Pain control. Okay to remove for sleep/hygeine. Will follow up for repeat XR in the outpatient ortho clinic. Subjective Subjective Date/Time Seen: 08/17/24 15:18 Interval history: Patient doing well. Now out of ICU and on the hospital floor. Review of Systems Review of Systems: All systems reviewed & are unremarkable except as noted in HPI and below Exam Const: Nutritional Appearance: average body habitus Orientation/consciousness: Other orientation findings ( sedated) Limitations: other limitations ( sedated) Extrem: Left lower extremity: knee ( tiny abrasion at the distal aspect of the incision which is healed.) Details: swelling ( No palpable effusion), abnormal ROM ( limited due to medical condition), abrasion ( small abrasion at the distal aspect of the incision, no drainage.) and warmth ( Mild warmth, bogginess.); no ecchymosis, no crepitus and no deformity, ankle Details: swelling; no abrasions and no lacerations and foot Details: normal capillary refill and vascular exam Details: dorsalis pedis pulse present Objective Data Vital Signs Vital Signs: Vital Signs - 24 hr 08/16/24 16:00 08/16/24 20:00 08/16/24 20:00 Temperature 36.8 C Pulse Rate 75 77 Respiratory Rate 18 Blood Pressure 146/92 H Pulse Oximetry 96 Oxygen Delivery Room Air 08/16/24 22:00 08/17/24 00:00 08/17/24 02:35 Temperature 36.4 C L Pulse Rate 76 75 Respiratory Rate 18 Blood Pressure 144/94 H Pulse Oximetry 97 98 Oxygen Delivery Room Air 08/17/24 02:38 08/17/24 02:50 08/17/24 04:00 Temperature Pulse Rate 67 68 62 Respiratory Rate 18 18 Blood Pressure Pulse Oximetry Oxygen Delivery 08/17/24 06:00 08/17/24 08:55 08/17/24 08:55 Temperature 36.4 C Pulse Rate 95 95 95 Respiratory Rate 18 Blood Pressure 141/91 H Pulse Oximetry 96 Oxygen Delivery 08/17/24 09:20 08/17/24 09:35 08/17/24 14:34 Temperature Pulse Rate 77 78 83 Respiratory Rate 18 18 18 Blood Pressure Pulse Oximetry Oxygen Delivery Intake/Output Intake/Output: Intake & Output 08/14/24 08/15/24 08/16/24 08/17/24 23:59 23:59 23:59 23:59 Intake Total 1387.0 2020 1920 1000 Output Total 3700 2450 2850 1000 Balance -2313.0 -430 -930 0 Meds/Results Medications: Active Medications Generic Name Dose Route Start Last Admin Trade Name Freq PRN Reason Stop Dose Admin Acetaminophen 650 mg 08/11/24 12:28 Acetaminophen 650 Mg Suppository RECTAL Q6H PRN Mild Pain (1-3) or Fever Albuterol/Ipratropium 3 ml 08/11/24 14:15 08/17/24 14:34 Ipratropium 0.5 Mg/Albuterol Sulfate 2.5 Mg Ampul.Neb 3 Ml INHALATION 3 ml Q6HRT DAKSHA Administration Apixaban 5 mg 08/11/24 21:00 08/17/24 08:56 Apixaban 5 Mg Tablet PO 5 mg Q12HR DAKSHA Administration Azathioprine 100 mg 08/15/24 09:30 08/17/24 08:55 Azathioprine 50 Mg Tablet PO 100 mg DAILY DAKSHA Administration Calcium Carbonate 500 mg 08/15/24 09:00 08/17/24 08:55 Calcium Carbonate (Oscal) 500 Mg Tablet PO 500 mg BID DAKSHA Administration Dextrose 12.5 gm 08/11/24 14:25 Dextrose 50% 25 Gm/50 Ml Syringe IV PUSH PRN PRN Hypoglycemia Protocol Digoxin 250 mcg 08/14/24 09:00 08/17/24 08:55 Digoxin 250 Mcg Tablet PO 250 mcg QAM DAKSHA Administration Empagliflozin 10 mg 08/15/24 09:30 08/17/24 08:56 Empagliflozin 10 Mg Tablet PO 10 mg DAILY DAKSHA Administration Folic Acid 1 mg 08/14/24 09:00 08/17/24 14:43 Folic Acid 1 Mg Tablet PO 1 mg DAILY DAKSHA Administration Furosemide 40 mg 08/15/24 09:30 08/17/24 08:55 Furosemide 40 Mg Tablet PO 40 mg DAILY DAKSHA Administration Glucagon 1 mg 08/11/24 14:25 Glucagon For Inj 1 Mg Vial IM PRN PRN Hypoglycemia Protocol Glucose 15 gm 08/11/24 14:25 Glucose Oral Gel 15 Gm Of Glucse In 37.5 Gm Tube PO PRN PRN Hypoglycemia Protocol Dextrose 1,000 mls @ 100 mls/hr 08/11/24 14:25 Dextrose 5% 1,000 Ml IVPB PRN PRN Hypoglycemia Protocol Meropenem 1 gm in 100 mls @ 200 mls/hr 08/14/24 07:20 08/17/24 14:41 IVPB 200 mls/hr Q8HR DAKSHA Administration Metoprolol Succinate 200 mg 08/16/24 09:00 08/17/24 08:55 Metoprolol Succinate Ext Rel 100 Mg Tabcr PO 200 mg QAM DAKSHA Administration Multivitamins/Calcium 1 tablet 08/15/24 09:30 08/17/24 08:56 Therapeutic Multivitamins/Minerals Tab (*Bkc) PO 1 tablet DAILY DAKSHA Administration Pantoprazole Sodium 40 mg 08/11/24 14:05 08/17/24 08:55 Pantoprazole Sodium Iv 40 Mg Vial IV PUSH 40 mg QAM DAKSHA Administration Sacubitril/Valsartan 1 tab 08/14/24 09:00 08/17/24 08:55 Sacubitril/Valsartan 24-26 Mg Tablet PO 1 tab Q12HR DAKSHA Administration Sodium Chloride 20 ml 08/11/24 13:52 Central Line Flush IV PUSH PRN PRN after blood draws Spironolactone 25 mg 08/15/24 09:30 08/17/24 08:55 Spironolactone 25 Mg Tablet PO 25 mg QAM DAKSHA Administration Sulfasalazine 500 mg 08/14/24 13:25 08/17/24 14:42 Sulfasalazine 500 Mg Tablet PO 500 mg QID DAKSHA Administration Tamsulosin HCl 0.4 mg 08/15/24 09:30 08/17/24 08:56 Tamsulosin Hcl 0.4 Mg Capsule PO 0.4 mg QAM DAKSHA Administration Radiology Results: ITS Impressions Chest/Abdomen/Pelvis CT 08/11/24 11:39 IMPRESSION: Left lower lobe consolidation and right basilar atelectasis. No hollow or solid organ injury. No acute fractures. Venous Doppler Study 08/11/24 15:11 IMPRESSION: 1: No lower extremity deep venous thrombosis. Renal Ultrasound 08/11/24 15:22 IMPRESSION: No hydronephrosis or renal calculi. Examination is unchanged from CT study performed 3 hours earlier Ankle X-Ray 08/11/24 18:33 IMPRESSION: Fracture of the lateral malleolus. Knee CT 08/11/24 19:16 IMPRESSION: Postoperative changes in the patella with destructive changes and fragmentation. multilocular abscess seen in the suprapatellar bursa. Synovitis seen in the left knee joint. was notified with the result of the patient at 7:35 PM on August 11, 2024. Chest X-Ray 08/14/24 05:48 Impression: 1: Persistent bibasilar airspace disease which may represent pneumonia and/or atelectasis. Head CT 08/14/24 18:42 IMPRESSION: No acute intracranial findings. 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 Right occipital shunt tube with the tip in the right lateral ventricle. Labs Labs: Laboratory Results - last 24 hr 08/17/24 08/17/24 08/17/24 06:10 06:11 07:56 WBC 11.8 H RBC 3.77 L Hgb 11.7 L Hct 36.7 L MCV 97.3 MCH 31.0 MCHC 31.9 L RDW 14.6 H Plt Count 206 MPV 10.9 H Immature Gran % (Auto) 1.2 H Neut % (Auto) 73.6 H Lymph % (Auto) 13.4 L [place] % (Auto) 9.1 H Eos % (Auto) 2.1 Baso % (Auto) 0.6 Lymph # (Auto) 1.57 [place] # (Auto) 1.1 H Eos # (Auto) 0.3 Baso # (Auto) 0.1 Abs Immat Gran (auto) 0.14 H Absolute Neuts (auto) 8.7 H Absolute Nucleated RBC 0.000 Nucleated RBC % 0.0 Sodium 140 Potassium 3.9 Chloride 102 Carbon Dioxide 32 H Anion Gap 6 BUN 23 H Creatinine 0.54 L Estim Creat Clear Calc 147 Estimated GFR > 60 Glucose 100 POC Capillary Glucose 115 H Calcium 9.3 Phosphorus 2.9 Magnesium 1.9 Total Bilirubin 0.8 AST 50 ALT 46 Alkaline Phosphatase 61 Total Protein 7.0 Albumin 3.8
--- NOTE | 2024-08-17 16:12 | PM.IMPN ---
Progress Note: A&P Assessment and Plan (1) Septic shock: Code(s): A41.9 - Sepsis, unspecified organism; R65.21 - Severe sepsis with septic shock Status: Acute Assessment and Plan: 08/11: Patient admitted with SVT, status post cardioversion by EMS. Was found down at home, with vomit on himself, respiratory distress, -patient was found to be hypotensive, likely related to septic shock, SVT, aspiration pneumonia, UTI -patient was given 1 L IV fluid bolus in the ER, will give additional IV fluid bolus in the ICU given history of cardiomyopathy with EF of 35-40% -OFF ALL PRESSORS -wean stress dose steroid -08/11: Blood cultures growing ESBL Klebsiella resistant to cefepime -08/11: Urine cultures growing ESBL Klebsiella -08/11: Sputum cultures growth of normal oropharyngeal bambi -08/12: Left knee aspiration culture, no growth 08/13: Repeat blood culture: No growth x2 (08/11) -08/12: Flagyl discontinued -08/13: Doxycycline Discontinued -08/14: Discontinue cefepime as ESBL Klebsiella resistant to cefepime, started meropenem day 4, will continue. We oral option would be Bactrim (2) Acute respiratory failure: Code(s): J96.00 - Acute respiratory failure, unspecified whether with hypoxia or hypercapnia Status: Acute Assessment and Plan: Acute respiratory failure could be related to SVT, hypotension, septic shock, aspiration pneumonia, UTI -08/11: Intubated in the ED -08/14: Extubated -continue DuoNeb -off IV fluids -continue diuresis (3) Acute alteration in mental status: Code(s): R41.82 - Altered mental status, unspecified Status: Acute Assessment and Plan: RESOLVED Likely related to hypotension, SVT, infection -will treat underlying cause -CT scan of the brain did not show any acute intracranial abnormality -patient now alert and awake and follows simple commands and nods to questions (4) Pneumonia: Code(s): J18.9 - Pneumonia, unspecified organism Status: Acute Assessment and Plan: Pneumonia as seen on CT scan of the chest abdomen pelvis -antibiotics as above -patient was negative for influenza, RSV and SARS-CoV-2 PCR -08/11: urine Legionella and urine pneumococcal antigens- Not detected 05/28: CT scan of the chest/abdomen/pelvis showed left lower lobe consolidation and right basal atelectasis, no all or solid organ injury, no acute fracture. (5) UTI (urinary tract infection): Qualifiers: Urinary tract infection type: acute cystitis Hematuria presence: without hematuria Qualified Code(s): N30.00 - Acute cystitis without hematuria Code(s): N39.0 - Urinary tract infection, site not specified Status: Acute Assessment and Plan: UA was reflective of UTI -patient has a history of UTI with Pseudomonas (05/16/2024) which was resistant to fluoroquinolones -continue antibiotics as above -urine cultures growing ESBL KLEBSIELLA (6) Systolic heart failure: Qualifiers: Heart failure chronicity: chronic Qualified Code(s): I50.22 - Chronic systolic (congestive) heart failure Code(s): I50.20 - Unspecified systolic (congestive) heart failure Status: Chronic Assessment and Plan: Patient with systolic heart failure with a EF of 35-40% Patient has been on GDMT, -CONTINUE Entresto, metoprolol, digoxin, Lasix , spironolactone, Jardiance, digoxin Off all IV fluids 05/15/2024: Echocardiogram Summary 1. Complete two-dimensional, color flow and Doppler transthoracic echocardiogram is performed. 2. Left ventricular chamber dimension is mildly enlarged. 3. Left ventricular systolic function is moderately reduced, estimated at 35-40%. 4. There is mildly increased left ventricular wall thickness. 5. The left ventricular diastolic function is abnormal. 6. Left atrial chamber dimension is severely enlarged. 7. Right atrial chamber dimension is mildly enlarged. 8. There is moderate to severe mitral valve regurgitation. 9. There is mild tricuspid valve regurgitation. 10. Severe pulmonary hypertension, estimated pulmonary arterial systolic pressure is 72 mmHg. 11. There is mild pulmonic regurgitation. 12. Pleural effusion seen. (7) Pulmonary hypertension: Code(s): I27.20 - Pulmonary hypertension, unspecified Status: Acute Assessment and Plan: Severe pulmonary hypertension (8) Mitral regurgitation: Code(s): I34.0 - Nonrheumatic mitral (valve) insufficiency Status: Acute Assessment and Plan: Moderate to severe mitral valve regurg, -caution with IV fluids (9) SVT (supraventricular tachycardia): Code(s): I47.10 - Supraventricular tachycardia, unspecified Status: Acute Assessment and Plan: Patient presented with SVT, was cardioverted by EMS according the triage note, heart rates were in the 160s to 240s, with hemodynamic instability -patient does have a history of AFib RVR on Eliquis at home -restarted Eliquis on admission (10) Acute kidney injury: Code(s): N17.9 - Acute kidney failure, unspecified Status: Acute Assessment and Plan: Acute kidney injury, likely septic shock, hypotension, ATN,, rhabdomyolysis -baseline creatinine is 0.50-0.80 -creatinine this admission is 1.70 -patient has received adequate amount of IV fluids -monitor urine output, renal function electrolytes -urine lytes did not reveal prerenal picture - urine eosinophils were negative, CK levels were 1099 -028: Renal ultrasound: No hydronephrosis or renal calculi -creatinine has normalized, adequate urine output (11) Atrial fibrillation with rapid ventricular response: Code(s): I48.91 - Unspecified atrial fibrillation Status: Acute Assessment and Plan: On Eliquis at home, will continue -currently rate controlled in sinus rhythm -continue to monitor (12) Swollen L knee: Code(s): M25.462 - Effusion, left knee Status: Acute Assessment and Plan: Swelling of the left knee with bogginess, fluctuation, warmth, likely septic joint -continue antibiotics 08/12: Appreciate orthopedic evaluation and recommendations, left knee aspiration was performed, -08/12: Left knee aspiration culture, no growth 08/11/2024: CT scan of the left knee IMPRESSION: Postoperative changes in the patella with destructive changes and fragmentation. multilocular abscess seen in the suprapatellar bursa. Synovitis seen in the left knee joint (13) Ankle fracture, left: Qualifiers: Encounter type: initial encounter Fracture type: closed Qualified Code(s): S82.892A - Other fracture of left lower leg, initial encounter for closed fracture Code(s): S82.892A - Other fracture of left lower leg, initial encounter for closed fracture Status: Acute Assessment and Plan: Left ankle swelling X-ray of the left ankle showed fracture of the lateral malleolus Appreciate orthopedic evaluation and recommendations, ice pack and elevated. Once he is more stable they recommended a fracture boot for out of bed with protected weight-bearing. PT OT to see Plan DVT prophylaxis: Apixaban Stress ulcer prophylaxis: Protonix Nutrition: continue heart healthy, low-sodium diet PT/OT following the patient Code Status: Full code Subjective Date/time seen: 08/17/24 16:12 Interval history: No overnight events. Patient feeling better. Denies any complaints. Review of Systems Review of Systems: All systems reviewed & are unremarkable except as noted in HPI and below Exam Narrative: General: Patient is awake, in no acute distress HEENT:? Left pupil still slightly larger than the right, both are reactive to light, sclera is clear, Neck:? Supple Respiratory:? Clear to auscultation bilaterally, decreased at bases, no wheezing Cardiac:? S1-S2 normal, regular rate and rhythm Abdomen:? Soft, nontender, nondistended, normoactive bowel sounds Extremities:? Left knee on a boot Neuro:? Patient is on room air, following commands able to answer questions appropriately Skin:? warm and dry Psych:? Normal mentation and affect Objective Data Vital Signs Vital Signs: Vital Signs - 24 hr 08/16/24 20:00 08/16/24 20:00 08/16/24 22:00 Temperature 97.5 F L Pulse Rate 77 76 Respiratory Rate 18 Blood Pressure 144/94 H Pulse Oximetry 97 Oxygen Delivery Room Air 08/17/24 00:00 08/17/24 02:35 08/17/24 02:38 Temperature Pulse Rate 75 67 Respiratory Rate 18 Blood Pressure Pulse Oximetry 98 Oxygen Delivery Room Air 08/17/24 02:50 08/17/24 04:00 08/17/24 06:00 Temperature 97.6 F Pulse Rate 68 62 95 Respiratory Rate 18 18 Blood Pressure 141/91 H Pulse Oximetry 96 Oxygen Delivery 08/17/24 08:55 08/17/24 08:55 08/17/24 09:20 Temperature Pulse Rate 95 95 77 Respiratory Rate 18 Blood Pressure Pulse Oximetry Oxygen Delivery 08/17/24 09:35 08/17/24 14:00 08/17/24 14:34 Temperature 97.5 F L Pulse Rate 78 80 83 Respiratory Rate 18 22 H 18 Blood Pressure 132/82 Pulse Oximetry 96 Oxygen Delivery Intake/Output Intake/Output: Intake & Output 08/14/24 08/15/24 08/16/24 08/17/24 23:59 23:59 23:59 23:59 Intake Total 1387.0 2020 1920 1000 Output Total 3700 2450 2850 1000 Balance -2313.0 -430 -930 0 Meds/Results Medications: Active Medications Generic Name Dose Route Start Last Admin Trade Name Freq PRN Reason Stop Dose Admin Acetaminophen 650 mg 08/11/24 12:28 Acetaminophen 650 Mg Suppository RECTAL Q6H PRN Mild Pain (1-3) or Fever Albuterol/Ipratropium 3 ml 08/11/24 14:15 08/17/24 14:34 Ipratropium 0.5 Mg/Albuterol Sulfate 2.5 Mg Ampul.Neb 3 Ml INHALATION 3 ml Q6HRT DAKSHA Administration Apixaban 5 mg 08/11/24 21:00 08/17/24 08:56 Apixaban 5 Mg Tablet PO 5 mg Q12HR DAKSHA Administration Azathioprine 100 mg 08/15/24 09:30 08/17/24 08:55 Azathioprine 50 Mg Tablet PO 100 mg DAILY DAKSHA Administration Calcium Carbonate 500 mg 08/15/24 09:00 08/17/24 08:55 Calcium Carbonate (Oscal) 500 Mg Tablet PO 500 mg BID DAKSHA Administration Dextrose 12.5 gm 08/11/24 14:25 Dextrose 50% 25 Gm/50 Ml Syringe IV PUSH PRN PRN Hypoglycemia Protocol Digoxin 250 mcg 08/14/24 09:00 08/17/24 08:55 Digoxin 250 Mcg Tablet PO 250 mcg QAM DAKSHA Administration Empagliflozin 10 mg 08/15/24 09:30 08/17/24 08:56 Empagliflozin 10 Mg Tablet PO 10 mg DAILY DAKSHA Administration Folic Acid 1 mg 08/14/24 09:00 08/17/24 14:43 Folic Acid 1 Mg Tablet PO 1 mg DAILY DAKSHA Administration Furosemide 40 mg 08/15/24 09:30 08/17/24 08:55 Furosemide 40 Mg Tablet PO 40 mg DAILY DAKSHA Administration Glucagon 1 mg 08/11/24 14:25 Glucagon For Inj 1 Mg Vial IM PRN PRN Hypoglycemia Protocol Glucose 15 gm 08/11/24 14:25 Glucose Oral Gel 15 Gm Of Glucse In 37.5 Gm Tube PO PRN PRN Hypoglycemia Protocol Dextrose 1,000 mls @ 100 mls/hr 08/11/24 14:25 Dextrose 5% 1,000 Ml IVPB PRN PRN Hypoglycemia Protocol Meropenem 1 gm in 100 mls @ 200 mls/hr 08/14/24 07:20 08/17/24 14:41 IVPB 200 mls/hr Q8HR DAKSHA Administration Metoprolol Succinate 200 mg 08/16/24 09:00 08/17/24 08:55 Metoprolol Succinate Ext Rel 100 Mg Tabcr PO 200 mg QAM DAKSHA Administration Multivitamins/Calcium 1 tablet 08/15/24 09:30 08/17/24 08:56 Therapeutic Multivitamins/Minerals Tab (*Bkc) PO 1 tablet DAILY DAKSHA Administration Pantoprazole Sodium 40 mg 08/11/24 14:05 08/17/24 08:55 Pantoprazole Sodium Iv 40 Mg Vial IV PUSH 40 mg QAM DAKSHA Administration Sacubitril/Valsartan 1 tab 08/14/24 09:00 08/17/24 08:55 Sacubitril/Valsartan 24-26 Mg Tablet PO 1 tab Q12HR DAKSHA Administration Sodium Chloride 20 ml 08/11/24 13:52 Central Line Flush IV PUSH PRN PRN after blood draws Spironolactone 25 mg 08/15/24 09:30 08/17/24 08:55 Spironolactone 25 Mg Tablet PO 25 mg QAM DAKSHA Administration Sulfasalazine 500 mg 08/14/24 13:25 08/17/24 14:42 Sulfasalazine 500 Mg Tablet PO 500 mg QID DAKSHA Administration Tamsulosin HCl 0.4 mg 08/15/24 09:30 08/17/24 08:56 Tamsulosin Hcl 0.4 Mg Capsule PO 0.4 mg QAM DAKSHA Administration Radiology Results: ITS Impressions Chest/Abdomen/Pelvis CT 08/11/24 11:39 IMPRESSION: Left lower lobe consolidation and right basilar atelectasis. No hollow or solid organ injury. No acute fractures. Venous Doppler Study 08/11/24 15:11 IMPRESSION: 1: No lower extremity deep venous thrombosis. Renal Ultrasound 08/11/24 15:22 IMPRESSION: No hydronephrosis or renal calculi. Examination is unchanged from CT study performed 3 hours earlier Ankle X-Ray 08/11/24 18:33 IMPRESSION: Fracture of the lateral malleolus. Knee CT 08/11/24 19:16 IMPRESSION: Postoperative changes in the patella with destructive changes and fragmentation. multilocular abscess seen in the suprapatellar bursa. Synovitis seen in the left knee joint. was notified with the result of the patient at 7:35 PM on August 11, 2024. Chest X-Ray 08/14/24 05:48 Impression: 1: Persistent bibasilar airspace disease which may represent pneumonia and/or atelectasis. Head CT 08/14/24 18:42 IMPRESSION: No acute intracranial findings. 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 Right occipital shunt tube with the tip in the right lateral ventricle. Labs Labs: Laboratory Results - last 24 hr 08/17/24 08/17/24 08/17/24 06:10 06:11 07:56 WBC 11.8 H RBC 3.77 L Hgb 11.7 L Hct 36.7 L MCV 97.3 MCH 31.0 MCHC 31.9 L RDW 14.6 H Plt Count 206 MPV 10.9 H Immature Gran % (Auto) 1.2 H Neut % (Auto) 73.6 H Lymph % (Auto) 13.4 L [place] % (Auto) 9.1 H Eos % (Auto) 2.1 Baso % (Auto) 0.6 Lymph # (Auto) 1.57 [place] # (Auto) 1.1 H Eos # (Auto) 0.3 Baso # (Auto) 0.1 Abs Immat Gran (auto) 0.14 H Absolute Neuts (auto) 8.7 H Absolute Nucleated RBC 0.000 Nucleated RBC % 0.0 Sodium 140 Potassium 3.9 Chloride 102 Carbon Dioxide 32 H Anion Gap 6 BUN 23 H Creatinine 0.54 L Estim Creat Clear Calc 147 Estimated GFR > 60 Glucose 100 POC Capillary Glucose 115 H Calcium 9.3 Phosphorus 2.9 Magnesium 1.9 Total Bilirubin 0.8 AST 50 ALT 46 Alkaline Phosphatase 61 Total Protein 7.0 Albumin 3.8
[2024-08-18] VITALS (19 sets, daily range): BP systolic 134–140; BP diastolic 72–83; PULSE 55–107; RESP 16–24; TEMP 36.2–36.8; O2SAT 94–98
[2024-08-18] MEDS: IPRATROPIUM 0.5 MG/ALBUTEROL SULFATE 2.5 MG AMPUL.NEB 3 ML INHALATION ×4 (02:24→20:01)
[2024-08-18] MEDS: MEROPENEM 1 GM/NS 100 ML 1 GM/100 ML BAG IVPB (05:01)
[2024-08-18 06:33] LABS: Basophils Absolute Auto 0.1 K/mm3 (0.0-0.1); Basophils Percent Auto 0.6 % (0.2-1.2); Eosinophils Absolute Auto 0.3 K/mm3 (0-0.3); Eosinophils Percent Auto 2.8 % (0-4.4); Hematocrit 35.2 % (42.0-52.0); Hemoglobin 11.4 g/dL (14.0-18.0); Immature Granulocyte Absolute 0.18 K/mm3 (0.00-0.031); Immature Granulocyte Percent A 1.9 % (0-0.5); Lymphocytes Absolute Auto 1.56 K/mm3 (0.9-3.2); Lymphocytes Percent Auto 16.4 % (18.3-44.2); Mean Corpuscular HGB Conc 32.4 g/dl (32-36); Mean Corpuscular Hemoglobin 31.2 pg (26-34); Mean Corpuscular Volume 96.4 fl (80-100); Mean Platelet Volume 10.7 fl (7.4-10.4); Monocytes Absolute Auto 1.2 K/mm3 (0.1-0.6); Monocytes Percent Auto 12.3 % (2.6-8.5); Neutrophils Absolute Auto 6.3 K/mm3 (1.3-6.7); Platelet Count Result 222 k/mm3 (150-375); Red Blood Count 3.65 M/mm3 (4.6-6.20); Red Cell Distribution Width 14.7 % (11.5-14.5); White Blood Count 9.5 K/mm3 (4.5-10.0)
[2024-08-18 06:52] LABS: Alanine Aminotransferase 46 U/L (6-50); Albumin Level 3.7 g/dL (3.5-5.1); Alkaline Phosphatase 65 U/L (38-126); Anion Gap 4 mmol/L (4-12); Aspartate Amino Transferase 51 U/L (17-59); Bilirubin,Total 0.7 mg/dL (0.2-1.3); Blood Urea Nitrogen 22 mg/dL (9-20); Calcium 9.2 mg/dL (8.4-10.2); Carbon Dioxide 30 mmol/L (22-30); Chloride 102 mmol/L (98-107); Estimated CRCL calculation 142 ml/min; Estimated Glomerular Filt Rate > 60; Glucose 101 mg/dL (65-110); Magnesium 1.9 mg/dL (1.6-2.3); Potassium 3.5 mmol/L (3.4-5.0); Sodium 136 mmol/L (137-145); Total Protein 6.8 g/dL (6.3-8.2)
[2024-08-18] MEDS: CALCIUM CARBONATE (OSCAL) 500 MG TABLET PO ×2 (09:21→17:53)
[2024-08-18] MEDS: THERAPEUTIC MULTIVITAMINS/MINERALS TAB (*BKC) 1 TABLET PO (09:21)
[2024-08-18] MEDS: SACUBITRIL/VALSARTAN 24-26 MG TABLET 1 TAB PO ×2 (09:22→20:50)
[2024-08-18] MEDS: sulfaSALAzine 500 MG TABLET PO ×4 (09:22→20:50)
[2024-08-18] MEDS: azaTHIOprine 50 MG TABLET 100 MG PO (09:22)
[2024-08-18] MEDS: APIXABAN 5 MG TABLET PO ×2 (09:22→20:50)
[2024-08-18] MEDS: FUROSEMIDE 40 MG TABLET PO (09:24)
[2024-08-18] MEDS: PANTOPRAZOLE SODIUM IV 40 MG VIAL IV PUSH (09:24)
[2024-08-18] MEDS: EMPAGLIFLOZIN 10 MG TABLET PO (09:24)
[2024-08-18] MEDS: METOPROLOL SUCCINATE EXT REL 100 MG TABCR 200 MG PO (09:24)
[2024-08-18] MEDS: SPIRONOLACTONE 25 MG TABLET PO (09:24)
[2024-08-18] MEDS: TAMSULOSIN HCL 0.4 MG CAPSULE PO (09:24)
[2024-08-18] MEDS: FOLIC ACID 1 MG TABLET PO (09:24)
--- NOTE | 2024-08-18 11:06 | PM.IMPN ---
Progress Note: A&P Assessment and Plan (1) Septic shock: Code(s): A41.9 - Sepsis, unspecified organism; R65.21 - Severe sepsis with septic shock Status: Acute Assessment and Plan: 08/11: Patient admitted with SVT, status post cardioversion by EMS. Was found down at home, with vomit on himself, respiratory distress, -patient was found to be hypotensive, likely related to septic shock, SVT, aspiration pneumonia, UTI -patient was given 1 L IV fluid bolus in the ER, will give additional IV fluid bolus in the ICU given history of cardiomyopathy with EF of 35-40% -OFF ALL PRESSORS -wean stress dose steroid -08/11: Blood cultures growing ESBL Klebsiella resistant to cefepime -08/11: Urine cultures growing ESBL Klebsiella -08/11: Sputum cultures growth of normal oropharyngeal bambi -08/12: Left knee aspiration culture, no growth 08/13: Repeat blood culture: No growth x2 (08/11) -08/12: Flagyl discontinued -08/13: Doxycycline Discontinued -08/14: Discontinue cefepime as ESBL Klebsiella resistant to cefepime, started meropenem day 4, will continue. We oral option would be Bactrim. -08/18: Switched to Bactrim 1 tab PO q12. (2) Acute respiratory failure: Code(s): J96.00 - Acute respiratory failure, unspecified whether with hypoxia or hypercapnia Status: Acute Assessment and Plan: Acute respiratory failure could be related to SVT, hypotension, septic shock, aspiration pneumonia, UTI -08/11: Intubated in the ED -08/14: Extubated -continue DuoNeb -off IV fluids -continue diuresis- Furosemide 40 mg PO daily. (3) Acute alteration in mental status: Code(s): R41.82 - Altered mental status, unspecified Status: Acute Assessment and Plan: RESOLVED Likely related to hypotension, SVT, infection -will treat underlying cause -CT scan of the brain did not show any acute intracranial abnormality -patient now alert and awake. Answering questions appropriately. (4) Pneumonia: Code(s): J18.9 - Pneumonia, unspecified organism Status: Acute Assessment and Plan: Pneumonia as seen on CT scan of the chest abdomen pelvis -antibiotics as above -patient was negative for influenza, RSV and SARS-CoV-2 PCR -08/11: urine Legionella and urine pneumococcal antigens- Not detected 08/11: CT scan of the chest/abdomen/pelvis showed left lower lobe consolidation and right basal atelectasis, no all or solid organ injury, no acute fracture. 08/18: Doxycycline 100 mg PO q 12. Add Guaifenesin 600 mg PO q 12. WBC 9.5. (5) UTI (urinary tract infection): Qualifiers: Hematuria presence: without hematuria Urinary tract infection type: acute cystitis Qualified Code(s): N30.00 - Acute cystitis without hematuria Code(s): N39.0 - Urinary tract infection, site not specified Status: Acute Assessment and Plan: UA was reflective of UTI -patient has a history of UTI with Pseudomonas (05/16/2024) which was resistant to fluoroquinolones -continue antibiotics as above -urine cultures growing ESBL KLEBSIELLA (6) Systolic heart failure: Qualifiers: Heart failure chronicity: chronic Qualified Code(s): I50.22 - Chronic systolic (congestive) heart failure Code(s): I50.20 - Unspecified systolic (congestive) heart failure Status: Chronic Assessment and Plan: Patient with systolic heart failure with a EF of 35-40% Patient has been on GDMT, -CONTINUE Entresto, metoprolol, digoxin, Lasix , spironolactone, Jardiance, digoxin Off all IV fluids 05/15/2024: Echocardiogram Summary 1. Complete two-dimensional, color flow and Doppler transthoracic echocardiogram is performed. 2. Left ventricular chamber dimension is mildly enlarged. 3. Left ventricular systolic function is moderately reduced, estimated at 35-40%. 4. There is mildly increased left ventricular wall thickness. 5. The left ventricular diastolic function is abnormal. 6. Left atrial chamber dimension is severely enlarged. 7. Right atrial chamber dimension is mildly enlarged. 8. There is moderate to severe mitral valve regurgitation. 9. There is mild tricuspid valve regurgitation. 10. Severe pulmonary hypertension, estimated pulmonary arterial systolic pressure is 72 mmHg. 11. There is mild pulmonic regurgitation. 12. Pleural effusion seen. (7) Pulmonary hypertension: Code(s): I27.20 - Pulmonary hypertension, unspecified Status: Acute Assessment and Plan: Severe pulmonary hypertension (8) Mitral regurgitation: Code(s): I34.0 - Nonrheumatic mitral (valve) insufficiency Status: Acute Assessment and Plan: Moderate to severe mitral valve regurg, -caution with IV fluids (9) SVT (supraventricular tachycardia): Code(s): I47.10 - Supraventricular tachycardia, unspecified Status: Acute Assessment and Plan: Patient presented with SVT, was cardioverted by EMS according the triage note, heart rates were in the 160s to 240s, with hemodynamic instability -patient does have a history of AFib RVR on Eliquis at home -restarted Eliquis on admission (10) Acute kidney injury: Code(s): N17.9 - Acute kidney failure, unspecified Status: Acute Assessment and Plan: Acute kidney injury, likely septic shock, hypotension, ATN,, rhabdomyolysis -baseline creatinine is 0.50-0.80 -creatinine this admission is 1.70 -patient has received adequate amount of IV fluids -monitor urine output, renal function electrolytes -urine lytes did not reveal prerenal picture - urine eosinophils were negative, CK levels were 1099 -028: Renal ultrasound: No hydronephrosis or renal calculi -creatinine has normalized, adequate urine output (11) Atrial fibrillation with rapid ventricular response: Code(s): I48.91 - Unspecified atrial fibrillation Status: Acute Assessment and Plan: On Eliquis at home, will continue -currently rate controlled in sinus rhythm -continue to monitor (12) Swollen L knee: Code(s): M25.462 - Effusion, left knee Status: Acute Assessment and Plan: Swelling of the left knee with bogginess, fluctuation, warmth, likely septic joint -continue antibiotics 08/12: Appreciate orthopedic evaluation and recommendations, left knee aspiration was performed, -08/12: Left knee aspiration culture, no growth 08/11/2024: CT scan of the left knee IMPRESSION: Postoperative changes in the patella with destructive changes and fragmentation. multilocular abscess seen in the suprapatellar bursa. Synovitis seen in the left knee joint (13) Ankle fracture, left: Qualifiers: Encounter type: initial encounter Fracture type: closed Qualified Code(s): S82.892A - Other fracture of left lower leg, initial encounter for closed fracture Code(s): S82.892A - Other fracture of left lower leg, initial encounter for closed fracture Status: Acute Assessment and Plan: Left ankle swelling X-ray of the left ankle showed fracture of the lateral malleolus Appreciate orthopedic evaluation and recommendations, ice pack and elevated. Once he is more stable they recommended a fracture boot for out of bed with protected weight-bearing. PT OT to see Plan DVT prophylaxis: Apixaban Stress ulcer prophylaxis: Protonix Nutrition: continue heart healthy, low-sodium diet PT/OT following the patient Code Status: Full code Subjective Date/time seen: 08/18/24 11:06 Interval history: Patient sitting up in chair. Patient denies chest pain, palpitations, headache, dizziness, nausea, or vomiting. Patient reports coughing up green sputum. Review of Systems Review of Systems: All systems reviewed & are unremarkable except as noted in HPI and below Exam Const: General: comfortable and no acute distress Resp: Effort & Inspection: normal respiratory effort Auscultation: clear to auscultation bilaterally Cardio: Rate: regular rate Rhythm: regular rhythm Other: Telemetry- SR 73. GI: GI Palp: Yes Soft to palpation Auscultation: normal bowel sounds Urinary Catheter: Urinary Catheter: patent and draining (cloudy with pink sediment ) Neuro: Speech: normal speech Extrem: Other: Lower left leg in a boot. Psych: Mental Status: mental status grossly normal Affect: normal affect Objective Data Vital Signs Vital Signs: Vital Signs - 24 hr 08/17/24 12:01 08/17/24 14:00 08/17/24 14:34 Temperature 97.5 F L Pulse Rate 77 80 83 Respiratory Rate 22 H 18 Blood Pressure 132/82 Pulse Oximetry 96 Oxygen Delivery 08/17/24 16:03 08/17/24 20:00 08/17/24 20:00 Temperature Pulse Rate 79 65 Respiratory Rate Blood Pressure Pulse Oximetry Oxygen Delivery Room Air 08/17/24 21:22 08/17/24 21:30 08/17/24 22:00 Temperature 97.8 F Pulse Rate 63 67 68 Respiratory Rate 20 18 18 Blood Pressure 131/78 Pulse Oximetry 90 Oxygen Delivery 08/18/24 00:00 08/18/24 02:24 08/18/24 02:33 Temperature Pulse Rate 71 59 L 59 L Respiratory Rate 16 16 Blood Pressure Pulse Oximetry Oxygen Delivery 08/18/24 04:00 08/18/24 06:00 08/18/24 07:54 Temperature 98.2 F Pulse Rate 57 L 66 Respiratory Rate 18 Blood Pressure 137/72 Pulse Oximetry 98 94 Oxygen Delivery Room Air 08/18/24 07:54 08/18/24 08:09 08/18/24 09:24 Temperature Pulse Rate 55 L 59 L 56 L Respiratory Rate 24 H 24 H Blood Pressure Pulse Oximetry Oxygen Delivery 08/18/24 09:24 Temperature Pulse Rate 56 L Respiratory Rate Blood Pressure Pulse Oximetry Oxygen Delivery Intake/Output Intake/Output: Intake & Output 08/15/24 08/16/24 08/17/24 08/18/24 23:59 23:59 23:59 23:59 Intake Total 2019 1919 1620 800 Output Total 245 2850 1000 Balance -430 -930 620 800 Meds/Results Medications: Active Medications Generic Name Dose Route Start Last Admin Trade Name Freq PRN Reason Stop Dose Admin Acetaminophen 650 mg 08/11/24 12:28 Acetaminophen 650 Mg Suppository RECTAL Q6H PRN Mild Pain (1-3) or Fever Albuterol/Ipratropium 3 ml 08/11/24 14:15 08/18/24 07:53 Ipratropium 0.5 Mg/Albuterol Sulfate 2.5 Mg Ampul.Neb 3 Ml INHALATION 3 ml Q6HRT DAKSHA Administration Apixaban 5 mg 08/11/24 21:00 08/18/24 09:22 Apixaban 5 Mg Tablet PO 5 mg Q12HR DAKSHA Administration Azathioprine 100 mg 08/15/24 09:30 08/18/24 09:22 Azathioprine 50 Mg Tablet PO 100 mg DAILY DAKSHA Administration Calcium Carbonate 500 mg 08/15/24 09:00 08/18/24 09:21 Calcium Carbonate (Oscal) 500 Mg Tablet PO 500 mg BID DAKSHA Administration Dextrose 12.5 gm 08/11/24 14:25 Dextrose 50% 25 Gm/50 Ml Syringe IV PUSH PRN PRN Hypoglycemia Protocol Digoxin 250 mcg 08/14/24 09:00 08/18/24 09:24 Digoxin 250 Mcg Tablet PO Not Given QAM DAKSHA Empagliflozin 10 mg 08/15/24 09:30 08/18/24 09:24 Empagliflozin 10 Mg Tablet PO 10 mg DAILY DAKSHA Administration Folic Acid 1 mg 08/14/24 09:00 08/18/24 09:24 Folic Acid 1 Mg Tablet PO 1 mg DAILY DAKSHA Administration Furosemide 40 mg 08/15/24 09:30 08/18/24 09:24 Furosemide 40 Mg Tablet PO 40 mg DAILY DAKSHA Administration Glucagon 1 mg 08/11/24 14:25 Glucagon For Inj 1 Mg Vial IM PRN PRN Hypoglycemia Protocol Glucose 15 gm 08/11/24 14:25 Glucose Oral Gel 15 Gm Of Glucse In 37.5 Gm Tube PO PRN PRN Hypoglycemia Protocol Dextrose 1,000 mls @ 100 mls/hr 08/11/24 14:25 Dextrose 5% 1,000 Ml IVPB PRN PRN Hypoglycemia Protocol Meropenem 1 gm in 100 mls @ 200 mls/hr 08/14/24 07:20 08/18/24 05:31 IVPB Infused Q8HR DAKSHA Infusion Metoprolol Succinate 200 mg 08/16/24 09:00 08/18/24 09:24 Metoprolol Succinate Ext Rel 100 Mg Tabcr PO 200 mg QAM DAKSHA Administration Multivitamins/Calcium 1 tablet 08/15/24 09:30 08/18/24 09:21 Therapeutic Multivitamins/Minerals Tab (*Bkc) PO 1 tablet DAILY DAKSHA Administration Pantoprazole Sodium 40 mg 08/11/24 14:05 08/17/24 08:55 Pantoprazole Sodium Iv 40 Mg Vial IV PUSH 40 mg QAM DAKSHA Administration Sacubitril/Valsartan 1 tab 08/14/24 09:00 08/18/24 09:22 Sacubitril/Valsartan 24-26 Mg Tablet PO 1 tab Q12HR DAKSHA Administration Sodium Chloride 20 ml 08/11/24 13:52 Central Line Flush IV PUSH PRN PRN after blood draws Spironolactone 25 mg 08/15/24 09:30 08/18/24 09:24 Spironolactone 25 Mg Tablet PO 25 mg QAM DAKSHA Administration Sulfasalazine 500 mg 08/14/24 13:25 08/18/24 09:22 Sulfasalazine 500 Mg Tablet PO 500 mg QID DAKSHA Administration Tamsulosin HCl 0.4 mg 08/15/24 09:30 08/18/24 09:24 Tamsulosin Hcl 0.4 Mg Capsule PO 0.4 mg QAM DAKSHA Administration Radiology Results: ITS Impressions Chest/Abdomen/Pelvis CT 08/11/24 11:39 IMPRESSION: Left lower lobe consolidation and right basilar atelectasis. No hollow or solid organ injury. No acute fractures. Venous Doppler Study 08/11/24 15:11 IMPRESSION: 1: No lower extremity deep venous thrombosis. Renal Ultrasound 08/11/24 15:22 IMPRESSION: No hydronephrosis or renal calculi. Examination is unchanged from CT study performed 3 hours earlier Ankle X-Ray 08/11/24 18:33 IMPRESSION: Fracture of the lateral malleolus. Knee CT 08/11/24 19:16 IMPRESSION: Postoperative changes in the patella with destructive changes and fragmentation. multilocular abscess seen in the suprapatellar bursa. Synovitis seen in the left knee joint. was notified with the result of the patient at 7:35 PM on August 11, 2024. Chest X-Ray 08/14/24 05:48 Impression: 1: Persistent bibasilar airspace disease which may represent pneumonia and/or atelectasis. Head CT 08/14/24 18:42 IMPRESSION: No acute intracranial findings. 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 Right occipital shunt tube with the tip in the right lateral ventricle. Labs Labs: Laboratory Results - last 24 hr 08/18/24 06:08 WBC 9.5 RBC 3.65 L Hgb 11.4 L Hct 35.2 L MCV 96.4 MCH 31.2 MCHC 32.4 RDW 14.7 H Plt Count 222 MPV 10.7 H Immature Gran % (Auto) 1.9 H Neut % (Auto) 66.0 Lymph % (Auto) 16.4 L [place] % (Auto) 12.3 H Eos % (Auto) 2.8 Baso % (Auto) 0.6 Lymph # (Auto) 1.56 [place] # (Auto) 1.2 H Eos # (Auto) 0.3 Baso # (Auto) 0.1 Abs Immat Gran (auto) 0.18 H Absolute Neuts (auto) 6.3 Absolute Nucleated RBC 0.000 Nucleated RBC % 0.0 Sodium 136 L Potassium 3.5 Chloride 102 Carbon Dioxide 30 Anion Gap 4 BUN 22 H Creatinine 0.56 L Estim Creat Clear Calc 142 Estimated GFR > 60 Glucose 101 Calcium 9.2 Magnesium 1.9 Total Bilirubin 0.7 AST 51 ALT 46 Alkaline Phosphatase 65 Total Protein 6.8 Albumin 3.7 Quality VTE Prophylaxis VTE prophylaxis: pharmacologic ordered
[2024-08-18] MEDS: guaiFENesin 12 HR 600 MG TABCR PO ×2 (11:44→20:50)
[2024-08-18] MEDS: SULFAMETHOXAZOLE/TRIMETHOPRIM 800/160 MG DS TABLET 1 TAB PO ×2 (11:48→20:50)
[2024-08-18] MEDS: DOXYCYCLINE HYCLATE 100 MG TABLET PO ×2 (11:48→20:50)
[2024-08-19] VITALS (18 sets, daily range): BP systolic 119–149; BP diastolic 75–97; PULSE 55–76; RESP 18–20; TEMP 36.2–36.4; O2SAT 95–97
--- NOTE | 2024-08-19 03:46 | PCRCNOTE ---
Window of time for administration has passed. See next scheduled administration.
[2024-08-19 06:42] LABS: Basophils Absolute Auto 0.1 K/mm3 (0.0-0.1); Basophils Percent Auto 0.9 % (0.2-1.2); Eosinophils Absolute Auto 0.3 K/mm3 (0-0.3); Eosinophils Percent Auto 2.7 % (0-4.4); Hematocrit 40.9 % (42.0-52.0); Hemoglobin 13.1 g/dL (14.0-18.0); Immature Granulocyte Absolute 0.11 K/mm3 (0.00-0.031); Immature Granulocyte Percent A 1.2 % (0-0.5); Lymphocytes Absolute Auto 1.87 K/mm3 (0.9-3.2); Lymphocytes Percent Auto 20.3 % (18.3-44.2); Mean Corpuscular Volume 96.9 fl (80-100); Mean Platelet Volume 10.9 fl (7.4-10.4); Monocytes Absolute Auto 1.2 K/mm3 (0.1-0.6); Monocytes Percent Auto 13.5 % (2.6-8.5); Neutrophils Absolute Auto 5.7 K/mm3 (1.3-6.7); Neutrophils Percent Auto 61.4 % (45.5-73.1); Platelet Count Result 258 k/mm3 (150-375); Red Blood Count 4.22 M/mm3 (4.6-6.20); Red Cell Distribution Width 14.6 % (11.5-14.5); White Blood Count 9.2 K/mm3 (4.5-10.0)
[2024-08-19 06:52] LABS: Alanine Aminotransferase 52 U/L (6-50); Albumin Level 4.3 g/dL (3.5-5.1); Alkaline Phosphatase 71 U/L (38-126); Anion Gap 7 mmol/L (4-12); Aspartate Amino Transferase 58 U/L (17-59); Bilirubin,Total 0.8 mg/dL (0.2-1.3); Blood Urea Nitrogen 20 mg/dL (9-20); Calcium 9.4 mg/dL (8.4-10.2); Carbon Dioxide 26 mmol/L (22-30); Chloride 101 mmol/L (98-107); Estimated CRCL calculation 126 ml/min; Estimated Glomerular Filt Rate > 60; Glucose 96 mg/dL (65-110); Magnesium 2.1 mg/dL (1.6-2.3); Potassium 4.2 mmol/L (3.4-5.0); Sodium 134 mmol/L (137-145); Total Protein 7.5 g/dL (6.3-8.2)
[2024-08-19] MEDS: IPRATROPIUM 0.5 MG/ALBUTEROL SULFATE 2.5 MG AMPUL.NEB 3 ML INHALATION ×3 (08:30→20:20)
[2024-08-19] MEDS: APIXABAN 5 MG TABLET PO ×2 (08:55→20:56)
[2024-08-19] MEDS: DIGOXIN 250 MCG TABLET PO (08:55)
[2024-08-19] MEDS: PANTOPRAZOLE SODIUM IV 40 MG VIAL IV PUSH (08:55)
[2024-08-19] MEDS: FOLIC ACID 1 MG TABLET PO (08:56)
[2024-08-19] MEDS: SACUBITRIL/VALSARTAN 24-26 MG TABLET 1 TAB PO ×2 (08:56→20:55)
[2024-08-19] MEDS: sulfaSALAzine 500 MG TABLET PO ×4 (08:56→20:56)
[2024-08-19] MEDS: CALCIUM CARBONATE (OSCAL) 500 MG TABLET PO ×2 (08:57→18:00)
[2024-08-19] MEDS: EMPAGLIFLOZIN 10 MG TABLET PO (08:57)
[2024-08-19] MEDS: THERAPEUTIC MULTIVITAMINS/MINERALS TAB (*BKC) 1 TABLET PO (08:57)
[2024-08-19] MEDS: FUROSEMIDE 40 MG TABLET PO (08:57)
[2024-08-19] MEDS: azaTHIOprine 50 MG TABLET 100 MG PO (08:57)
[2024-08-19] MEDS: guaiFENesin 12 HR 600 MG TABCR PO ×2 (08:58→20:55)
[2024-08-19] MEDS: METOPROLOL SUCCINATE EXT REL 100 MG TABCR 200 MG PO (08:58)
[2024-08-19] MEDS: TAMSULOSIN HCL 0.4 MG CAPSULE PO (08:58)
[2024-08-19] MEDS: SPIRONOLACTONE 25 MG TABLET PO (08:58)
[2024-08-19] MEDS: DOXYCYCLINE HYCLATE 100 MG TABLET PO ×2 (08:58→20:55)
[2024-08-19] MEDS: SULFAMETHOXAZOLE/TRIMETHOPRIM 800/160 MG DS TABLET 1 TAB PO ×2 (08:59→20:55)
--- NOTE | 2024-08-19 12:21 | PM.IMPN ---
Progress Note: A&P Assessment and Plan (1) Septic shock: Code(s): A41.9 - Sepsis, unspecified organism; R65.21 - Severe sepsis with septic shock Status: Acute Assessment and Plan: 08/11: Patient admitted with SVT, status post cardioversion by EMS. Was found down at home, with vomit on himself, respiratory distress, -patient was found to be hypotensive, likely related to septic shock, SVT, aspiration pneumonia, UTI -patient was given 1 L IV fluid bolus in the ER, will give additional IV fluid bolus in the ICU given history of cardiomyopathy with EF of 35-40% -OFF ALL PRESSORS -wean stress dose steroid -08/11: Blood cultures growing ESBL Klebsiella resistant to cefepime -08/11: Urine cultures growing ESBL Klebsiella -08/11: Sputum cultures growth of normal oropharyngeal bambi -08/12: Left knee aspiration culture, no growth 08/13: Repeat blood culture: No growth x2 (08/11) -08/12: Flagyl discontinued -08/13: Doxycycline Discontinued -08/14: Discontinue cefepime as ESBL Klebsiella resistant to cefepime, started meropenem day 4, will continue. We oral option would be Bactrim. -08/18: Switched to Bactrim 1 tab PO q12. (2) Acute respiratory failure: Code(s): J96.00 - Acute respiratory failure, unspecified whether with hypoxia or hypercapnia Status: Acute Assessment and Plan: Acute respiratory failure could be related to SVT, hypotension, septic shock, aspiration pneumonia, UTI -08/11: Intubated in the ED -08/14: Extubated -continue DuoNeb -off IV fluids -continue diuresis- Furosemide 40 mg PO daily. (3) Acute alteration in mental status: Code(s): R41.82 - Altered mental status, unspecified Status: Acute Assessment and Plan: RESOLVED Likely related to hypotension, SVT, infection -will treat underlying cause -CT scan of the brain did not show any acute intracranial abnormality -patient now alert and awake. Answering questions appropriately. (4) Pneumonia: Code(s): J18.9 - Pneumonia, unspecified organism Status: Acute Assessment and Plan: Pneumonia as seen on CT scan of the chest abdomen pelvis -antibiotics as above -patient was negative for influenza, RSV and SARS-CoV-2 PCR -08/11: urine Legionella and urine pneumococcal antigens- Not detected 08/11: CT scan of the chest/abdomen/pelvis showed left lower lobe consolidation and right basal atelectasis, no all or solid organ injury, no acute fracture. /: Doxycycline 100 mg PO q 12. Add Guaifenesin 600 mg PO q 12. WBC 9.5. 6/: Doxycycline 100 mg PO q 12. Cough better with Guaifenesin 600 mg PO q 12. WBC 9.2. (5) UTI (urinary tract infection): Qualifiers: Urinary tract infection type: acute cystitis Hematuria presence: without hematuria Qualified Code(s): N30.00 - Acute cystitis without hematuria Code(s): N39.0 - Urinary tract infection, site not specified Status: Acute Assessment and Plan: UA was reflective of UTI -patient has a history of UTI with Pseudomonas (05/16/2024) which was resistant to fluoroquinolones -continue antibiotics as above -urine cultures growing ESBL KLEBSIELLA (6) Systolic heart failure: Qualifiers: Heart failure chronicity: chronic Qualified Code(s): I50.22 - Chronic systolic (congestive) heart failure Code(s): I50.20 - Unspecified systolic (congestive) heart failure Status: Chronic Assessment and Plan: Patient with systolic heart failure with a EF of 35-40% Patient has been on GDMT, -CONTINUE Entresto, metoprolol, digoxin, Lasix , spironolactone, Jardiance, digoxin Off all IV fluids 05/15/2024: Echocardiogram Summary 1. Complete two-dimensional, color flow and Doppler transthoracic echocardiogram is performed. 2. Left ventricular chamber dimension is mildly enlarged. 3. Left ventricular systolic function is moderately reduced, estimated at 35-40%. 4. There is mildly increased left ventricular wall thickness. 5. The left ventricular diastolic function is abnormal. 6. Left atrial chamber dimension is severely enlarged. 7. Right atrial chamber dimension is mildly enlarged. 8. There is moderate to severe mitral valve regurgitation. 9. There is mild tricuspid valve regurgitation. 10. Severe pulmonary hypertension, estimated pulmonary arterial systolic pressure is 72 mmHg. 11. There is mild pulmonic regurgitation. 12. Pleural effusion seen. (7) Pulmonary hypertension: Code(s): I27.20 - Pulmonary hypertension, unspecified Status: Acute Assessment and Plan: Severe pulmonary hypertension (8) Mitral regurgitation: Code(s): I34.0 - Nonrheumatic mitral (valve) insufficiency Status: Acute Assessment and Plan: Moderate to severe mitral valve regurg, -caution with IV fluids (9) SVT (supraventricular tachycardia): Code(s): I47.10 - Supraventricular tachycardia, unspecified Status: Acute Assessment and Plan: Patient presented with SVT, was cardioverted by EMS according the triage note, heart rates were in the 160s to 240s, with hemodynamic instability -patient does have a history of AFib RVR on Eliquis at home -restarted Eliquis on admission (10) Acute kidney injury: Code(s): N17.9 - Acute kidney failure, unspecified Status: Acute Assessment and Plan: Acute kidney injury, likely septic shock, hypotension, ATN,, rhabdomyolysis -baseline creatinine is 0.50-0.80 -creatinine this admission is 1.70 -patient has received adequate amount of IV fluids -monitor urine output, renal function electrolytes -urine lytes did not reveal prerenal picture - urine eosinophils were negative, CK levels were 1099 -028: Renal ultrasound: No hydronephrosis or renal calculi -creatinine has normalized, adequate urine output (11) Atrial fibrillation with rapid ventricular response: Code(s): I48.91 - Unspecified atrial fibrillation Status: Acute Assessment and Plan: On Eliquis at home, will continue -currently rate controlled in sinus rhythm -continue to monitor (12) Swollen L knee: Code(s): M25.462 - Effusion, left knee Status: Acute Assessment and Plan: Swelling of the left knee with bogginess, fluctuation, warmth, likely septic joint -continue antibiotics 08/12: Appreciate orthopedic evaluation and recommendations, left knee aspiration was performed, -08/12: Left knee aspiration culture, no growth 08/11/2024: CT scan of the left knee IMPRESSION: Postoperative changes in the patella with destructive changes and fragmentation. multilocular abscess seen in the suprapatellar bursa. Synovitis seen in the left knee joint (13) Ankle fracture, left: Qualifiers: Encounter type: initial encounter Fracture type: closed Qualified Code(s): S82.892A - Other fracture of left lower leg, initial encounter for closed fracture Code(s): S82.892A - Other fracture of left lower leg, initial encounter for closed fracture Status: Acute Assessment and Plan: Left ankle swelling X-ray of the left ankle showed fracture of the lateral malleolus Appreciate orthopedic evaluation and recommendations, ice pack and elevated. Once he is more stable they recommended a fracture boot for out of bed with protected weight-bearing. PT OT to see Plan DVT prophylaxis: Apixaban Stress ulcer prophylaxis: Protonix Nutrition: continue heart healthy, low-sodium diet PT/OT following the patient Code Status: Full code Subjective Date/time seen: 08/19/24 12:21 Interval history: Patient sitting up in chair. Patient denies chest pain, palpitations, shortness of breath, dizziness, nausea, or vomiting. Patient reports that cough is better and he has not coughed up anything today. Review of Systems Review of Systems: All systems reviewed & are unremarkable except as noted in HPI and below Exam Const: General: comfortable and no acute distress Resp: Effort & Inspection: normal respiratory effort Auscultation: clear to auscultation bilaterally Cardio: Rate: regular rate Rhythm: regular rhythm Other: Telemetry- SR 71. GI: GI Palp: Yes Soft to palpation Auscultation: normal bowel sounds Neuro: Speech: normal speech Extrem: Other: Lower left leg in a boot. Psych: Mental Status: mental status grossly normal Affect: normal affect Objective Data Vital Signs Vital Signs: Vital Signs - 24 hr 08/18/24 14:00 08/18/24 14:51 08/18/24 14:58 Temperature 97.1 F L Pulse Rate 107 H 62 61 Respiratory Rate 18 24 H 24 H Blood Pressure 134/81 Pulse Oximetry 97 Oxygen Delivery 08/18/24 16:00 08/18/24 20:00 08/18/24 20:01 Temperature Pulse Rate 61 64 60 Respiratory Rate 22 H Blood Pressure Pulse Oximetry Oxygen Delivery 08/18/24 20:04 08/18/24 20:11 08/18/24 20:19 Temperature 98.1 F Pulse Rate 61 64 Respiratory Rate 20 16 Blood Pressure 140/83 Pulse Oximetry 95 95 Oxygen Delivery Room Air 08/19/24 00:00 08/19/24 04:00 08/19/24 05:22 Temperature 97.5 F L Pulse Rate 55 L 60 61 Respiratory Rate 20 Blood Pressure 149/97 H Pulse Oximetry 95 Oxygen Delivery 08/19/24 08:30 08/19/24 08:30 08/19/24 08:40 Temperature Pulse Rate 66 64 Respiratory Rate 20 20 Blood Pressure Pulse Oximetry 95 Oxygen Delivery Room Air 08/19/24 08:55 08/19/24 08:58 Temperature Pulse Rate 64 64 Respiratory Rate Blood Pressure Pulse Oximetry Oxygen Delivery Intake/Output Intake/Output: Intake & Output 08/16/24 08/17/24 08/18/24 08/19/24 23:59 23:59 23:59 23:59 Intake Total 1920 1620 1240 940 Output Total 2850 1000 2550 1300 Balance -930 620 -1310 -360 Meds/Results Medications: Active Medications Generic Name Dose Route Start Last Admin Trade Name Freq PRN Reason Stop Dose Admin Acetaminophen 650 mg 08/11/24 12:28 Acetaminophen 650 Mg Suppository RECTAL Q6H PRN Mild Pain (1-3) or Fever Albuterol/Ipratropium 3 ml 08/11/24 14:15 08/19/24 08:30 Ipratropium 0.5 Mg/Albuterol Sulfate 2.5 Mg Ampul.Neb 3 Ml INHALATION 3 ml Q6HRT DAKSHA Administration Apixaban 5 mg 08/11/24 21:00 08/19/24 08:55 Apixaban 5 Mg Tablet PO 5 mg Q12HR DAKSHA Administration Azathioprine 100 mg 08/15/24 09:30 08/19/24 08:57 Azathioprine 50 Mg Tablet PO 100 mg DAILY DAKSHA Administration Calcium Carbonate 500 mg 08/15/24 09:00 08/19/24 08:57 Calcium Carbonate (Oscal) 500 Mg Tablet PO 500 mg BID DAKSHA Administration Dextrose 12.5 gm 08/11/24 14:25 Dextrose 50% 25 Gm/50 Ml Syringe IV PUSH PRN PRN Hypoglycemia Protocol Digoxin 250 mcg 08/14/24 09:00 08/19/24 08:55 Digoxin 250 Mcg Tablet PO 250 mcg QAM DAKSHA Administration Doxycycline Hyclate 100 mg 08/18/24 12:00 08/19/24 08:58 Doxycycline Hyclate 100 Mg Tablet PO 08/20/24 21:01 100 mg Q12HR DAKSHA Administration Empagliflozin 10 mg 08/15/24 09:30 08/19/24 08:57 Empagliflozin 10 Mg Tablet PO 10 mg DAILY DAKSHA Administration Folic Acid 1 mg 08/14/24 09:00 08/19/24 08:56 Folic Acid 1 Mg Tablet PO 1 mg DAILY DAKSHA Administration Furosemide 40 mg 08/15/24 09:30 08/19/24 08:57 Furosemide 40 Mg Tablet PO 40 mg DAILY DAKSHA Administration Glucagon 1 mg 08/11/24 14:25 Glucagon For Inj 1 Mg Vial IM PRN PRN Hypoglycemia Protocol Glucose 15 gm 08/11/24 14:25 Glucose Oral Gel 15 Gm Of Glucse In 37.5 Gm Tube PO PRN PRN Hypoglycemia Protocol Guaifenesin 600 mg 08/18/24 11:10 08/19/24 08:58 Guaifenesin 12 Hr 600 Mg Tabcr PO 08/25/24 11:09 600 mg Q12HR DAKSHA Administration Dextrose 1,000 mls @ 100 mls/hr 08/11/24 14:25 Dextrose 5% 1,000 Ml IVPB PRN PRN Hypoglycemia Protocol Metoprolol Succinate 200 mg 08/16/24 09:00 08/19/24 08:58 Metoprolol Succinate Ext Rel 100 Mg Tabcr PO 200 mg QAM DAKSHA Administration Multivitamins/Calcium 1 tablet 08/15/24 09:30 08/19/24 08:57 Therapeutic Multivitamins/Minerals Tab (*Bkc) PO 1 tablet DAILY DAKSHA Administration Pantoprazole Sodium 40 mg 08/11/24 14:05 08/19/24 08:55 Pantoprazole Sodium Iv 40 Mg Vial IV PUSH 40 mg QAM DAKSHA Administration Sacubitril/Valsartan 1 tab 08/14/24 09:00 08/19/24 08:56 Sacubitril/Valsartan 24-26 Mg Tablet PO 1 tab Q12HR DAKSHA Administration Sodium Chloride 20 ml 08/11/24 13:52 Central Line Flush IV PUSH PRN PRN after blood draws Spironolactone 25 mg 08/15/24 09:30 08/19/24 08:58 Spironolactone 25 Mg Tablet PO 25 mg QAM DAKSHA Administration Sulfasalazine 500 mg 08/14/24 13:25 08/19/24 08:56 Sulfasalazine 500 Mg Tablet PO 500 mg QID DAKSHA Administration Tamsulosin HCl 0.4 mg 08/15/24 09:30 08/19/24 08:58 Tamsulosin Hcl 0.4 Mg Capsule PO 0.4 mg QAM DAKSHA Administration Trimethoprim/Sulfamethoxazole 1 tab 08/18/24 12:00 08/19/24 08:59 Sulfamethoxazole/Trimethoprim 800/160 Mg Ds Tablet PO 08/23/24 21:01 1 tab Q12HR DAKSHA Administration Radiology Results: ITS Impressions Chest/Abdomen/Pelvis CT 08/11/24 11:39 IMPRESSION: Left lower lobe consolidation and right basilar atelectasis. No hollow or solid organ injury. No acute fractures. Venous Doppler Study 08/11/24 15:11 IMPRESSION: 1: No lower extremity deep venous thrombosis. Renal Ultrasound 08/11/24 15:22 IMPRESSION: No hydronephrosis or renal calculi. Examination is unchanged from CT study performed 3 hours earlier Ankle X-Ray 08/11/24 18:33 IMPRESSION: Fracture of the lateral malleolus. Knee CT 08/11/24 19:16 IMPRESSION: Postoperative changes in the patella with destructive changes and fragmentation. multilocular abscess seen in the suprapatellar bursa. Synovitis seen in the left knee joint. was notified with the result of the patient at 7:35 PM on August 11, 2024. Chest X-Ray 08/14/24 05:48 Impression: 1: Persistent bibasilar airspace disease which may represent pneumonia and/or atelectasis. Head CT 08/14/24 18:42 IMPRESSION: No acute intracranial findings. 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 Right occipital shunt tube with the tip in the right lateral ventricle. Labs Labs: Laboratory Results - last 24 hr 08/19/24 06:11 WBC 9.2 RBC 4.22 L Hgb 13.1 L Hct 40.9 L MCV 96.9 MCH 31.0 MCHC 32.0 RDW 14.6 H Plt Count 258 MPV 10.9 H Immature Gran % (Auto) 1.2 H Neut % (Auto) 61.4 Lymph % (Auto) 20.3 Hartley % (Auto) 13.5 H Eos % (Auto) 2.7 Baso % (Auto) 0.9 Lymph # (Auto) 1.87 Hartley # (Auto) 1.2 H Eos # (Auto) 0.3 Baso # (Auto) 0.1 Abs Immat Gran (auto) 0.11 H Absolute Neuts (auto) 5.7 Absolute Nucleated RBC 0.000 Nucleated RBC % 0.0 Sodium 134 L Potassium 4.2 Chloride 101 Carbon Dioxide 26 Anion Gap 7 BUN 20 Creatinine 0.64 L Estim Creat Clear Calc 126 Estimated GFR > 60 Glucose 96 Calcium 9.4 Magnesium 2.1 Total Bilirubin 0.8 AST 58 ALT 52 H Alkaline Phosphatase 71 Total Protein 7.5 Albumin 4.3 Quality VTE Prophylaxis VTE prophylaxis: pharmacologic ordered
[2024-08-20] VITALS (13 sets, daily range): BP systolic 113–128; BP diastolic 70–78; PULSE 55–83; RESP 18–20; TEMP 35.9–36.5; O2SAT 97–99
[2024-08-20] MEDS: IPRATROPIUM 0.5 MG/ALBUTEROL SULFATE 2.5 MG AMPUL.NEB 3 ML INHALATION ×3 (02:05→13:55)
[2024-08-20 07:06] LABS: Basophils Absolute Auto 0.1 K/mm3 (0.0-0.1); Basophils Percent Auto 0.7 % (0.2-1.2); Eosinophils Absolute Auto 0.2 K/mm3 (0-0.3); Eosinophils Percent Auto 1.7 % (0-4.4); Hematocrit 39.9 % (42.0-52.0); Hemoglobin 12.7 g/dL (14.0-18.0); Immature Granulocyte Absolute 0.11 K/mm3 (0.00-0.031); Immature Granulocyte Percent A 1.1 % (0-0.5); Lymphocytes Absolute Auto 1.74 K/mm3 (0.9-3.2); Lymphocytes Percent Auto 17.7 % (18.3-44.2); Mean Corpuscular HGB Conc 31.8 g/dl (32-36); Mean Corpuscular Hemoglobin 30.8 pg (26-34); Mean Corpuscular Volume 96.6 fl (80-100); Mean Platelet Volume 11.2 fl (7.4-10.4); Monocytes Absolute Auto 1.3 K/mm3 (0.1-0.6); Monocytes Percent Auto 13.3 % (2.6-8.5); Neutrophils Absolute Auto 6.4 K/mm3 (1.3-6.7); Neutrophils Percent Auto 65.5 % (45.5-73.1); Platelet Count Result 298 k/mm3 (150-375); Red Blood Count 4.13 M/mm3 (4.6-6.20); Red Cell Distribution Width 14.9 % (11.5-14.5); White Blood Count 9.8 K/mm3 (4.5-10.0)
[2024-08-20 07:22] LABS: Alanine Aminotransferase 51 U/L (6-50); Albumin Level 4.3 g/dL (3.5-5.1); Alkaline Phosphatase 71 U/L (38-126); Anion Gap 6 mmol/L (4-12); Aspartate Amino Transferase 48 U/L (17-59); Bilirubin,Total 0.8 mg/dL (0.2-1.3); Blood Urea Nitrogen 21 mg/dL (9-20); Calcium 9.7 mg/dL (8.4-10.2); Carbon Dioxide 28 mmol/L (22-30); Chloride 101 mmol/L (98-107); Estimated CRCL calculation 99 ml/min; Estimated Glomerular Filt Rate > 60; Glucose 94 mg/dL (65-110); Magnesium 2.4 mg/dL (1.6-2.3); Potassium 5.7 mmol/L (3.4-5.0); Sodium 135 mmol/L (137-145); Total Protein 7.5 g/dL (6.3-8.2)
--- NOTE | 2024-08-20 09:10 | PCNFU ---
Nutrition Follow-Up Complete: Potential for inadequate oral intake related to recent intubation as evidenced by plan of care Adequate PO intake at least 75% meals and supplements - Goal is being met. Continue with same goal Goal: Pt current nutrition is 2 gram Na, heart healthy diet. Ensure Enlive BID (350 kcal, 20 g protein). Nutrition recommendation: No new recommendations. Continue current nutrition care plan and orders. Agree with current orders Last recorded weight is 79.9 kg. Bowel Motility: +3 BMs 6/5 Labs Reviewed: Hgb 12.7, Hct 39.9, Na 135, K+ 5.7, BUN 21 Meds Noted: Protonix, folic acid, Lasix, lokelma Skin: No skin issues Additional Notes: Tolerating diet well. Continue current nutrition care plan and orders. Agree with orders. Monitoring intakes, weights, labs, supplement tolerance, plan of care Follow up in 5 days
[2024-08-20] MEDS: SODIUM ZIRCONIUM CYCLOSILICATE 5 GM POWD.PACK PO (10:04)
[2024-08-20] MEDS: FUROSEMIDE 40 MG TABLET PO (10:09)
[2024-08-20] MEDS: CALCIUM CARBONATE (OSCAL) 500 MG TABLET PO (10:09)
[2024-08-20] MEDS: DOXYCYCLINE HYCLATE 100 MG TABLET PO (10:09)
[2024-08-20] MEDS: TAMSULOSIN HCL 0.4 MG CAPSULE PO (10:09)
[2024-08-20] MEDS: SACUBITRIL/VALSARTAN 24-26 MG TABLET 1 TAB PO (10:09)
[2024-08-20] MEDS: azaTHIOprine 50 MG TABLET 100 MG PO (10:09)
[2024-08-20] MEDS: SPIRONOLACTONE 25 MG TABLET PO (10:09)
[2024-08-20] MEDS: sulfaSALAzine 500 MG TABLET PO (10:10)
[2024-08-20] MEDS: DIGOXIN 250 MCG TABLET PO (10:10)
[2024-08-20] MEDS: METOPROLOL SUCCINATE EXT REL 100 MG TABCR 200 MG PO (10:10)
[2024-08-20] MEDS: APIXABAN 5 MG TABLET PO (10:10)
[2024-08-20] MEDS: THERAPEUTIC MULTIVITAMINS/MINERALS TAB (*BKC) 1 TABLET PO (10:10)
[2024-08-20] MEDS: FOLIC ACID 1 MG TABLET PO (10:10)
[2024-08-20] MEDS: SULFAMETHOXAZOLE/TRIMETHOPRIM 800/160 MG DS TABLET 1 TAB PO (10:10)
[2024-08-20] MEDS: EMPAGLIFLOZIN 10 MG TABLET PO (10:11)
[2024-08-20] MEDS: guaiFENesin 12 HR 600 MG TABCR PO (10:11)
[2024-08-20 13:12] LABS: Potassium 4.6 mmol/L (3.4-5.0)
--- NOTE | 2024-08-20 14:30 | PM.DS ---
DS: Admitting Diagnosis Discharge Date 08/20/2024 Admitting Diagnosis Unresponsive, arrhythmia, palpitations. DS: Discharge Diagnosis Discharge Diagnosis (1) Septic shock: Code(s): A41.9 - Sepsis, unspecified organism; R65.21 - Severe sepsis with septic shock Status: Acute (2) Acute respiratory failure: Code(s): J96.00 - Acute respiratory failure, unspecified whether with hypoxia or hypercapnia Status: Acute (3) Acute alteration in mental status: Code(s): R41.82 - Altered mental status, unspecified Status: Acute (4) Pneumonia: Code(s): J18.9 - Pneumonia, unspecified organism Status: Acute (5) UTI (urinary tract infection): Qualifiers: Hematuria presence: without hematuria Urinary tract infection type: acute cystitis Qualified Code(s): N30.00 - Acute cystitis without hematuria Code(s): N39.0 - Urinary tract infection, site not specified Status: Acute (6) Systolic heart failure: Qualifiers: Heart failure chronicity: chronic Qualified Code(s): I50.22 - Chronic systolic (congestive) heart failure Code(s): I50.20 - Unspecified systolic (congestive) heart failure Status: Chronic (7) SVT (supraventricular tachycardia): Code(s): I47.10 - Supraventricular tachycardia, unspecified Status: Acute (8) Acute kidney injury: Code(s): N17.9 - Acute kidney failure, unspecified Status: Acute (9) Atrial fibrillation with rapid ventricular response: Code(s): I48.91 - Unspecified atrial fibrillation Status: Acute (10) Swollen L knee: Code(s): M25.462 - Effusion, left knee Status: Acute (11) Ankle fracture, left: Qualifiers: Encounter type: initial encounter Fracture type: closed Qualified Code(s): S82.892A - Other fracture of left lower leg, initial encounter for closed fracture Code(s): S82.892A - Other fracture of left lower leg, initial encounter for closed fracture Status: Acute (12) Pulmonary hypertension: Code(s): I27.20 - Pulmonary hypertension, unspecified Status: Acute DS: Summary Hospital Course Hospital Course: Initial VS at presentation: 102.6? F, HR 160, R 26, 203/140, and 100% on NRB. Remains 100% post intubation on mechanical ventilation. ED workup showed: WBC 31.4, hemoglobin 13.2 (previously 14.1 on 07/10/2024), ABG showed a pH of 7.455/CO2 32.4/O2 280.7, creatinine 1.7 and GFR 43 (previously 0.87 and GFR 107 on 07/10/2024), UA consistent with UTI. Viral PCR negative. UDS negative. CXR showed mild pulmonary vascular congestion. Head CT showed no acute abnormalities and chronic findings (see findings for full details). CT w/con of the chest/abdomen/pelvis showed a left lower lobe consolidation right basilar atelectasis, no hollow or solid organ injury, no acute fractures. Upon EMS arrival, he was found to be in SVT with a heart rate in the 240s and he was subsequently cardioverted which reduces heart rate into the 160s. Venous Doppler Study 08/11/24 15:11 IMPRESSION: 1: No lower extremity deep venous thrombosis. Renal Ultrasound 08/11/24 15:22 IMPRESSION: No hydronephrosis or renal calculi. Examination is unchanged from CT study performed 3 hours earlier Ankle X-Ray 08/11/24 18:33 IMPRESSION: Fracture of the lateral malleolus. Knee CT 08/11/24 19:16 IMPRESSION: Postoperative changes in the patella with destructive changes and fragmentation. multilocular abscess seen in the suprapatellar bursa. Synovitis seen in the left knee joint. was notified with the result of the patient at 7:35 PM on August 11, 2024. Chest X-Ray 08/14/24 05:48 Impression: 1: Persistent bibasilar airspace disease which may represent pneumonia and/or atelectasis. Head CT 08/14/24 18:42 IMPRESSION: No acute intracranial findings. 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 Right occipital shunt tube with the tip in the right lateral ventricle. Patient was having falls at home and balance issues. Left lower leg placed in a boot. PT/OT worked with patient. Urine and blood grew Klebsiella pneumoniae. Patient treated with antibiotics for pneumonia and UTI. Sputum culture negative. Sa02 98% RA at discharge. WBC 9.8. Discharge to MANAV. Status at Discharge Functional status at discharge: uses cane/walker Overall status at discharge: patient is not back to baseline Time Spent with Patient Time attestation: Total time spent providing and/or coordinating discharge services: Time spent: Greater than 30 minutes Exam Const: General: comfortable and no acute distress Resp: Effort & Inspection: normal respiratory effort Auscultation: clear to auscultation bilaterally Cardio: Rate: regular rate Rhythm: regular rhythm Other: Telemetry- SR 66. GI: GI Palp: Yes Soft to palpation Auscultation: normal bowel sounds Extrem: Other: Lower left leg in a boot. Psych: Mental Status: mental status grossly normal Affect: normal affect DS: Data Data Completed and Pending Labs on day of discharge: Labs from last 24 hours 08/20/24 08/20/24 12:50 06:26 WBC 9.8 RBC 4.13 L Hgb 12.7 L Hct 39.9 L MCV 96.6 MCH 30.8 MCHC 31.8 L RDW 14.9 H Plt Count 298 MPV 11.2 H Immature Gran % (Auto) 1.1 H Neut % (Auto) 65.5 Lymph % (Auto) 17.7 L [place] % (Auto) 13.3 H Eos % (Auto) 1.7 Baso % (Auto) 0.7 Lymph # (Auto) 1.74 [place] # (Auto) 1.3 H Eos # (Auto) 0.2 Baso # (Auto) 0.1 Abs Immat Gran (auto) 0.11 H Absolute Neuts (auto) 6.4 Absolute Nucleated RBC 0.000 Nucleated RBC % 0.0 Sodium 135 L Potassium 4.6 5.7 H Chloride 101 Carbon Dioxide 28 Anion Gap 6 BUN 21 H Creatinine 0.83 Estim Creat Clear Calc 99 Estimated GFR > 60 Glucose 94 Calcium 9.7 Magnesium 2.4 H Total Bilirubin 0.8 AST 48 ALT 51 H Alkaline Phosphatase 71 Total Protein 7.5 Albumin 4.3 Preliminary micro results at discharge 08/12/24 13:27 Aerobic Culture - Preliminary Knee Left Discharge Plan Discharge Attending physician on discharge: Sin Roberts Consulting providers: Willis Yao; Denis Singh Discharging Clinician: Kaylene Beatty Anticipated Discharge Date/Time: 08/20/24 15:52 Patient Disposition: [facility] Activity: may shower, no driving and follow weight bearing status Diet: heart healthy and low sodium Discharge Instructions: [facility] #[phone]. Orthopedic Recommendations Dr. Denis Singh [phone] Protected weight bearing of the left ankle with fracture boot. Rest, ice, elevate. Okay to remove fracture boot for sleep/shower. Follow up in 6 weeks in the outpatient orthopedic clinic for repeat radiographs. Call at d/c to arrange appointment based on discharge plans. Take all doses of antibiotics. Report to provider if you have shortness of breath not improved with inhaler, rest, sputum with color, or temperature >101. Follow up with primary in 1-2 weeks. Thank you for entrusting [facility] with your healthcare! Patient Instructions: Antibiotic Form, Urinary Tract Infection in Men (DC), Sepsis (DC), Pneumonia (DC), Acute Respiratory Failure (GEN) Patient Language: Ugandan Stand Alone Forms: General Discharge Information Follow-up/Referrals: Denis Singh MD [Physician] - Call for Appointment (6 weeks s/p hospitalization ) Wayne Kurtz MD [Primary Care Provider] - 1 Week Discharge Medications: New doxycycline hyclate 100 mg Tablet 100 mg PO Q12HR Qty: 1 0RF sulfamethoxazole-trimethoprim 800-160 mg Tablet 1 tablet PO Q12HR Qty: 7 0RF guaifenesin [Mucus Relief ER] 600 mg Tablet Extended Release 12hr 600 mg PO Q12HR Qty: 12 0RF Continued alendronate 70 mg tablet 70 mg PO WEEKLY Rx Instructions: Takes Every Friday folic acid 1 mg tablet 1 mg PO DAILY Humira Pen 40 mg/0.8 mL pen injector kit 40 mg SUBCUT Q14D Patient Comments: Every other Friday Rx Instructions: Due to take 11/04/2022 calcium carbonate [Calcium 500] 500 mg calcium (1,250 mg) Tablet 500 mg PO BID Complete Multivitamin Tablet 1 tablet PO DAILY glucosamine-chondroitin [Osteo Bi-Flex] 250-200 mg Tablet 2 tablet PO DAILY azathioprine [Imuran] 50 mg Tablet 100 mg PO DAILY furosemide 40 mg Tablet 40 mg PO DAILY 30 Days Qty: 30 1RF metoprolol succinate [Toprol XL] 100 mg Tablet Extended Release 24 Hr 200 mg PO QAM 30 Days Qty: 60 1RF digoxin [Digitek] 250 mcg (0.25 mg) Tablet 250 mcg PO QAM 30 Days Qty: 30 1RF spironolactone 25 mg Tablet 25 mg PO QAM 30 Days Qty: 30 1RF tamsulosin 0.4 mg Capsule 0.4 mg PO QAM 30 Days Qty: 30 1RF Eliquis 5 mg Tablet 5 mg PO Q12HR 30 Days Qty: 60 1RF Jardiance 10 mg Tablet 10 mg PO DAILY 30 Days Qty: 30 1RF Entresto 24-26 mg Tablet 1 tab PO Q12HR 30 Days Qty: 60 1RF sulfasalazine 500 mg tablet 500 mg PO QID 90 Days Qty: 360 3RF Date of admission: 08/11/24 13:47 Primary Care Provider: Wayne Kurtz Admitting Provider: Divina Gregorio Attending physician on admission: Divina Gregorio Condition: Improved Hospitalist MIPS Heart Failure (Exclusion) Patient has history of Heart Transplant or Left Ventricular Assistive Device?: No IF YES, STOP HERE Heart Failure (Qualifier) Patient has current or prior documentation of LVEF less than or equal to 40%, or mod/servere depressed LVSF?: Yes IF NO, STOP HERE If Yes, Heart Failure (Qualifier) Patient was prescribed or already taking an Angiotensin-Converting Enzyme (YISSEL) Inhibitor, or Antiotensin Receptor Karli (ARB): Yes Patient was prescribed or already taking bisoprolol, carvedilol, or sustained release metoprolol succinate: Yes
--- NOTE | 2024-08-20 15:49 | PC.NURSE ---
On 08/19/24, internet access down to WOWs [phone] meds verified and given via desktop.
== END 2024-08-20 16:10 | DRG 871 ==
LOC: ANHED 12:34 → ANHICU 12:42 → ANH3MEDSUR 08-16 18:51
PROVIDERS: Internal Medicine; Student in an Organized Health Care Education/Training Program; Admitting Provider Family Medicine; Emergency Provider Emergency Medicine; PCP Family Medicine; Visit Provider Nurse Practitioner Family
DX: A41.9 Sepsis, unspecified organism (principal); J18.9 Pneumonia, unspecified organism; R65.21 Severe sepsis with septic shock; J96.00 Acute respiratory failure, unspecified whether with hypoxia or hypercapnia; E87.1 Hypo-osmolality and hyponatremia; I47.10 Supraventricular tachycardia, unspecified; I50.22 Chronic systolic (congestive) heart failure; N17.9 Acute kidney failure, unspecified; I43 Cardiomyopathy in diseases classified elsewhere; N30.00 Acute cystitis without hematuria; Z16.12 Extended spectrum beta lactamase (ESBL) resistance; Z87.820 Personal history of traumatic brain injury; B96.1 Klebsiella pneumoniae [K. pneumoniae] as the cause of diseases classified elsewhere; I11.0 Hypertensive heart disease with heart failure; I34.0 Nonrheumatic mitral (valve) insufficiency; I27.20 Pulmonary hypertension, unspecified; M25.462 Effusion, left knee; M06.9 Rheumatoid arthritis, unspecified; R56.9 Unspecified convulsions; S82.832A Other fracture of upper and lower end of left fibula, initial encounter for closed fracture; Z98.2 Presence of cerebrospinal fluid drainage device; Z20.822 Contact with and (suspected) exposure to COVID-19; Z79.01 Long term (current) use of anticoagulants; Z79.84 Long term (current) use of oral hypoglycemic drugs
CPT/HCPCS: 20610; 27786; 36415; 36556; 36600; 70450; 71045; 71260; 73610; 73700; 74177; 76775; 80053; 80162; 80202; 80307; 81001; 82077; 82375; 82436; 82550; 82570; 82805; 82948; 83050; 83605; 83690; 83735; 83880; 84100; 84132; 84145; 84300; 84443; 84478; 84484; 85018; 85025; 85610; 85730; 85999; 87040; 87070; 87075; 87086; 87186; 87205; 87449; 87493; 87637; 87641; 87899; 92610; 93970; 94003; 94640; 96361; 96374; 96375; 97110; 97116; 97162; 97165; 97530; 97535; 99285; A9270; C1751; G0378; J0330; J0613; J0692; J1720; J1836; J1938; J2185; J2250; J2371; J2470; J2704; J3010; J3370; J3475; J3480; J7030; J7050; P9047; Q9967

== ENCOUNTER 2025-01-18 00:59 | Day surgery (SDC) | payer BC, SELFPAY ==
[2025-01-11 14:05] VITALS: BMI 26.3
--- NOTE | 2025-01-11 14:15 | PC.NURSE ---
Spoke with patient regarding medication Eliquis. Patient verbalizes understanding that the last dose is to be taken on 01-15-2025 and the Endoscopist will instruct them when to restart after the procedure.
--- OUTSIDE RECORDS SUMMARY | 2025-01-18 01:01 | XMS_ITS | Encounter Summary ---
Author Organization [facility] Address [address] [place] [address] Phone Care Team Providers Care Hat Designer Name Role Phone Wayne Kurtz MD Primary Care Provider [phone] Dayami Gill APRN, BROACH OPERATOR Unavailable [phone] Suman Becerra MD Unavailable [phone] Ngozi De Luna APRN, BROACH OPERATOR Unavailable Reason for Visit * Reason Comments Medication Refill Encounter Details Date Type Department Care Team (Late st Contact Info) Description 05/17/2023 Refill [facility] - Gastroenterology - [place] [address] [place] [address] Ngozi De Luna APRN, BROACH OPERATOR [address] [place] [address] Medication Refill Social History Tobacco Use Types [...] Luiza Marcos RN - 05/21/2023 9:23 AM ECOMMERCE MERCHANDISING MANAGER Refill received from [facility] pharmacy for azathioprine, refill request asking for additional information for weight. Please see pended order. MERCE MERCHANDISING MANAGER documented in this encounter Plan of Treatment Not on file documented as of this encounter Visit Diagnoses Diagnosis Ulcerative pancolitis without complication documented in this encounter Care Teams Hat Designer Relationship Specialty Start Date End Date Wayne Kurtz MD [address] [place] [address] PCP - General Family Medicine 04/09/16 Dayami Gill APRN, BROACH OPERATOR [address] [place] [address] Nurse Practitioner Advanced Practice Nurse 04/26/16 Suman Becerra MD [address] [place] [address] Consulting Physician Gastroenterology 05/24/21 Ngozi De Luna APRN, BROACH OPERATOR [address] [place] [address] Nurse Practitioner Advanced Practice Nurse 09/02/22 documented as of this encounter
--- OUTSIDE RECORDS SUMMARY | 2025-01-18 01:01 | XMS_ITS | Encounter Summary ---
Author Organization [facility] Address [address] [place] [address] Phone Care Team Providers Care Vacuum Filter Operator Name Role Phone Wayne Kurtz MD Primary Care Provider Dayami Gill APRN, REHABILITATION CASE COORDINATOR Unavailable [phone] Suman Becerra MD Unavailable [phone] Ngozi De Luna APRN, REHABILITATION CASE COORDINATOR Unavailable Reason for Visit * Reason Comments Medication Refill Encounter Details Date Type Department Care Team (Late st Contact Info) Description 04/01/2021 Refill [facility] - Gastroenterology - [place] [address] [place] [address] Komal Johnson Maryellen, PAC [address] [place] [address] Medication Refill Social History Tobacco Use Types [...] Luiza Marcos RN - 04/02/2021 11:09 AM RENEWAL SPECIALIST Pharmacy requesting refill of: Requested Prescriptions Pending Prescriptions Disp Refills ??? sulfaSALAzine (AZULFIDINE) 500 MG Tablet [Pharmacy Med Name: SULFASALAZINE 500MG TABLETS] 120 Tablet 0 Sig: TAKE 1 TABLET BY MOUTH FOUR TIMES DAILY Last fill: 03/02/2021 Patients last OV with GI: 10/02/2020 Next Office Visit with GI: None scheduled. CBC, CMP and UA labs printed from [facility] portal. Labs drawn on 02/13/[address]. [address] on providers desk for review. Sulfasalazine order pended, please review. WAL SPECIALIST WAL SPECIALIST WAL SPECIALIST documented in this encounter Plan of Treatment Not on file documented as of this encounter Visit Diagnoses Diagnosis Ulcerative pancolitis without complication documented in this encounter Care Teams Vacuum Filter Operator Relationship Specialty Start Date End Date Wayne Kurtz MD [address] [place] [address] PCP - General Family Medicine 04/09/16 Dayami Gill APRN, REHABILITATION CASE COORDINATOR [address] [place] [address] Nurse Practitioner Advanced Practice Nurse 04/26/16 Suman Becerra MD [address] [place] [address] Consulting Physician Gastroenterology 05/24/21 Ngozi De Luna APRN, REHABILITATION CASE COORDINATOR [address] [place] [address] Nurse Practitioner Advanced Practice Nurse 09/02/22 documented as of this encounter
--- OUTSIDE RECORDS SUMMARY | 2025-01-18 01:01 | XMS_ITS | Clinical Summary ---
Author Organization [facility] Address [address] [place] [id number] Care Team Providers Care Microbiology Analyst Name Role Phone Wayne Kurtz MD Primary Care Provider [phone] Allergies No known active allergies Medications alendronate (FOSAMAX) 70 mg tablet take 1 tablet by oral route every week in the morning, at least 30 min before first food, beverage, or medication of day 0 0 4 Active folic acid (FOLVITE) 400 mcg tablet take 1 tablet by oral route every day 0 0 4 Active Additional Information Patient taking differently:0.4 mgoral Daily (early AM), Reported on 10/11/2024 adalimumab (HUMIRA PEN) 40 mg/0.8 mL pen injector kitIndications:U lcerative Colitis Inject 0.8 mL (40 mg total) under the skin every 2 (two) weeks 9 Active azaTHIOprine (IMURAN) 50 mg tablet Take 2 tablets (100 mg total) by mouth assistant manager quality management before breakfast 9 Active sulfaSALAzine (AZULFIDINE) 500 mg tablet TAKE 1 TABLET BY MOUTH FOUR TIMES DAILY 9 Active ondansetron (ZOFRAN) 4 mg tabletIndication s:Prevention of Post-Operative Nausea and Vomiting Take 1 tablet (4 mg total) by mouth every 8 (eight) hours as needed for nausea or vomiting 12 tablet 0 Active Additional Information Patient not taking.Reported on 10/11/2024 HYDROcodone-acet aminophen (NORCO) 10-325 mg per tabletIndication s:Pain Take 1 tablet by mouth every 4 (four) hours as needed (postop) 30 tablet 0 Active Additional Information Patient not taking.Reported on 10/11/2024 leg brace misc 1 Units daily 1 each 1 Active rifAMPin (RIFADIN) 300 mg capsule daily Active senna-docusate (PERICOLACE) 8.6-50 mg 2 tab, Tab, Oral, BID, 120 tab, 0 Refill(s), Route to Pharmacy Electronically, [id number], 178, 02/28/20 12:28:00 PRODUCTION CONTROL MANAGER, Height/Length Dosing, cm, 84.4, 02/28/20 12:28:00 PRODUCTION CONTROL MANAGER, Weight Dosing, kg 0 Active sacubitriL-valsa rtan (ENTRESTO) 24-26 mg tabletIndication s:chronic heart failure Take 1 tablet by mouth 2 (two) times a day 180 tablet 3 5 07/07/19 26 Active metoprolol XL (TOPROL-XL) 100 mg 24 hr tablet Take 1 tablet (100 mg total) by mouth daily 90 tablet 3 5 Active empagliflozin (JARDIANCE) 10 mg tabletIndication s:Heart Failure Take 1 tablet (10 mg total) by mouth daily 90 tablet 3 5 07/07/19 26 Active apixaban (ELIQUIS) 5 mg tabletIndication s:atrial fibrillation Take 1 tablet (5 mg total) by mouth 2 (two) times a day 180 tablet 3 5 07/07/19 26 Active spironolactone (ALDACTONE) 25 mg tablet Take 1 tablet (25 mg total) by mouth daily 30 tablet 5 Active furosemide (LASIX) 40 mg tablet Take 1 tablet (40 mg total) by mouth daily 30 tablet 11 5 08/05/19 Active digoxin (LANOXIN) 250 mcg (0.25 mg) tablet Take 1 tablet (250 mcg total) by mouth daily 90 tablet 3 5 11/09/19 26 Active Active Problems Problem Noted Date Diagnosed Date Paroxysmal atrial fibrillation 10/11/2024 Wound dehiscence 03/02/2020 At risk for venous thromboembolism (VTE) 020 Overview (08/24/2020): Problem added by Discern Expert Rule: [id number]_3 Patellar dislocation, left, subsequent encounter 01/18/2020 Overview (01/18/2020): Added automatically from request for surgery [id number] Charcot's joint of knee, left 01/18/2020 Overview (01/18/2020): Added automatically from request for surgery [id number] Cystic acne 12/02/2019 Hypertension 12/02/2019 Murmur 12/02/2019 Pulmonary stenosis 12/02/2019 Ulcerative colitis 12/02/2019 Mitral valve disease 04/26/2014 Overview (06/21/2016): Mitral valve disorder Encounters Date Type Department Care Team Description 11/08/2024 Telephone [facility] Cardiology [address] [place] [address] Jason Modi MD Med Refill from Last 3 Months Surgical History Surgery Date Site/Laterality Comments OTHER SURGICAL HISTORY OTHER SURGICAL HISTORY Cerebral aneurysm repair-shunt age 12 COLONOSCOPY Medical History Medical History Date Comments Ulcerative colitis Ulcerative Co litis Hypertension Hypertension Family History Medical History Relation [...] on file Legal Sex Male 3:13 AM PRODUCTION CONTROL MANAGER Gender Identity Male 05/15/2020 1:43 PM PRODUCTION CONTROL MANAGER Sexual Orientation Straight 03/15/2021 6: 46 PM PRODUCTION CONTROL MANAGER Last Filed Vital Signs Vital Sign Reading Time Taken Comments Blood Pressure 110/78 10/11/2024 8:29 AM CDT Pulse 55 10/11/2024 8:29 AM CDT Temperature 37.1 C (98.8 F) 02/22/2020 8:00 AM PRODUCTION CONTROL MANAGER Respiratory Rate 16 02/22/2020 8:00 AM PRODUCTION CONTROL MANAGER Oxygen Saturation 99% 10/11/2024 8:29 AM CDT Inhaled Oxygen Concentration - - Weight 78.9 kg (174 lb) 10/11/2024 8:29 AM CDT Height 175.3 cm (5' 9) 10/11/2024 8:29 AM CDT Body Mass Index 25.7 10/11/2024 8:29 AM CDT Plan of Treatment Health Maintenance [...] series) 02/09/2021 01/12/2021, 12/14/2020 Influenza Vaccine (#1) 2024 Insurance [facility] Advance Directives For more information, please contact: [phone] * Full Code (Latest Code Status on File) Date Activated Date Inactivated Comments 02/18/2020 7:34 PM 02/22/2020 8:32 PM Care Teams Microbiology Analyst Relationship Specialty Start Date End Date Wayne Kurtz MD PCP - General 05/26/15
--- OUTSIDE RECORDS SUMMARY | 2025-01-18 01:01 | XMS_ITS | Encounter Summary ---
Author Organization [facility] Address [address] [place] [address] Phone Care Team Providers Care Family Nurse Name Role Phone Wayne Kurtz MD Primary Care Provider [phone] Dayami Gill APRN, DEVELOPMENT SPECIALIST Unavailable Suman Becerra MD Unavailable [phone] Ngozi De Luna APRN, DEVELOPMENT SPECIALIST Unavailable Reason for Visit * Reason Comments Medication Refill Encounter Details Date Type Department Care Team (Late st Contact Info) Description 12/16/2022 Refill [facility] - Gastroenterology - [place] [address] [place] [address] Suman Becerra MD [address] [place] [address] Medication Refill Social History Tobacco Use Types [...] 09/02/22 Office Visit Ngozi De Luna APRN, DEVELOPMENT SPECIALIST [facility] Showing recent visits within past 365 days and meeting all other requirements Future Appointments No visits were found meeting these conditions. Showing future appointments within next 90 days and meeting all other requirements documented in this encounter Plan of Treatment Not on file documented as of this encounter Visit Diagnoses Diagnosis Ulcerative pancolitis without complication documented in this encounter Care Teams Family Nurse Relationship Specialty Start Date End Date Wayne Kurtz MD [address] [place] [address] PCP - General Family Medicine 04/09/16 Dayami Gill APRN, DEVELOPMENT SPECIALIST [address] [place] [address] Nurse Practitioner Advanced Practice Nurse 04/26/16 Suman Becerra MD [address] [place] [address] Consulting Physician Gastroenterology 05/24/21 Ngozi De Luna APRN, DEVELOPMENT SPECIALIST [address] [place] [address] Nurse Practitioner Advanced Practice Nurse 09/02/22 documented as of this encounter
--- OUTSIDE RECORDS SUMMARY | 2025-01-18 01:01 | XMS_ITS | Encounter Summary ---
Author Organization [facility] Address [address] [place] [address] Phone Care Team Providers Care Hand Cutter Name Role Phone Wayne Kurtz MD Primary Care Provider [phone] Dayami Gill APRN, MANAGER INVENTORY CONTROL Unavailable [phone] Suman Becerra MD Unavailable [phone] Ngozi De Luna APRN, MANAGER INVENTORY CONTROL Unavailable Reason for Visit * Reason Comments Medication Refill Encounter Details Date Type Department Care Team (Late st Contact Info) Description 05/05/2023 Refill [facility] - Gastroenterology - [place] [address] [place] [address] Ngozi De Luna APRN, MANAGER INVENTORY CONTROL [address] [place] [address] Medication Refill Social History Tobacco Use Types [...] Luiza Marcos RN - 05/09/2023 9:45 AM TERMITE EXTERMINATOR Patient was last seen by Kathy De Luna NP on 09/02/2022. azathioprine order pended, please review andapprove. ITE EXTERMINATOR * Telephone Encounter - Suman Becerra MD - 05/06/2023 12:23 PM CST No more refills without follow-up ITE EXTERMINATOR * Telephone Encounter - Luiza Marcos RN - 05/05/2023 9:23 AM TERMITE EXTERMINATOR Medication failed the protocol, provider to review [...] 09/02/22 Office Visit Ngozi De Luna APRN, MANAGER INVENTORY CONTROL [facility] Showing recent visits within past 365 days and meeting all other requirements Future Appointments No visits were found meeting these conditions. Showing future appointments within next 90 days and meeting all other requirements ITE EXTERMINATOR documented in this encounter Plan of Treatment Not on file documented as of this encounter Visit Diagnoses Diagnosis Ulcerative pancolitis without complication documented in this encounter Care Teams Hand Cutter Relationship Specialty Start Date End Date Wayne Kurtz MD [address] [place] [address] PCP - General Family Medicine 04/09/16 Dyaami Gill APRN, MANAGER INVENTORY CONTROL [address] [place] [address] Nurse Practitioner Advanced Practice Nurse 04/26/16 Suman Becerra MD [address] [place] [address] Consulting Physician Gastroenterology 05/24/21 Ngozi De Luna APRN, MANAGER INVENTORY CONTROL [address] [place] [address] Nurse Practitioner Advanced Practice Nurse 09/02/22 documented as of this encounter
--- OUTSIDE RECORDS SUMMARY | 2025-01-18 01:01 | XMS_ITS | Clinical Summary ---
Author Organization [facility] Address [address], [address] [address] Phone Care Team Providers Care Skin Former Name Role Phone Wayne Kurtz MD Primary Care Provider [phone] Dayami Gill PARTS PULLER, RESIDENTIAL SALES MANAGER Unavailable [phone] Suman Becerra MD Unavailable [phone] Ngozi De Luna PARTS PULLER, RESIDENTIAL SALES MANAGER Unavailable Allergies No known active allergies Medications [...] MG/0.8ML Pen-injector KitIndications:Ulcer ative pancolitis without complication 0.8 mL by Subcutaneous route every 14 days. 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) use of immunosuppressive biologic TAKE 1 TABLET FOUR TIMES DAILY 360 Tablet 3 12/15/19 24 Active azaTHIOprine (IMURAN) 50 MG TabletIndications:Ul cerative pancolitis without complication TAKE 2 TABLETS DAILY 60 Tablet 11 04/08/19 25 Active Active Problems Problem Noted Date Diagnosed Date Ulcerative colitis Cystic acne Hypertension Pulmonary stenosis Murmur Immunizations Immunization Administration Dates Next Due Covid-19, [...] - Moderna risk series) 02/09/2021 01/12/2021, 12/14/2020 Cologuard 2021 Immunochemical Fecal Occult Blood 2021 Colonoscopy 08/05/2024 08/06/2023, 07/16, 06/15/2020, Additional history exists Colorectal Cancer Screening 08/05/2024 Influenza Immunization (#1) 2024 Respiratory Syncytial Virus (RSV) Immunization (Adult) (1 - 1-dose 75+ series) 08/24/2051 Hepatitis C Virus (HCV) Screening Completed 04/27/2018, 04/27/2018 Human Papillomavirus (HPV) Immunization Aged Out No longer eligible based on patient's age to complete this topic Meningococcal Immunization (ACWY) Aged Out No longer eligible based on patient's age to complete this topic Pneumococcal Immunization Combined Aged Out No longer eligible based on patient's age to complete this topic Rotavirus Immunization Aged Out No lo nger eligible based on patient's age to complete this topic Procedures Procedure Name Priority Date/Time Associated Diagnosis Comments GI IMAGING - COLONOSCOPY Routine 08/06/2023 6:29 AM CDT HEPATITIS PANEL ACUTE (AHP) Routine 04/27/2018 Ulcerative colitis without complications, unspecified location (HCC) High risk medication use from Last 3 Months or Most Recently Relevant to Health Maintenance Results * GI IMAGING - COLONOSCOPY (08/06/2023 6:29 AM CDT) Suman Becerra MD IMG DIAGNOSTIC ORDERABLES Final Result * HEPATITIS PANEL ACUTE (AHP) (04/27/2018) Blood specimen (specimen) Gaby Marcano PARTS PULLER, RESIDENTIAL SALES MANAGER HEMATOLOGY ORDERA BLES Final Result from Last 3 Months or Most Recently Relevant to Health Maintenance Insurance [facility] Care Teams Skin Former Relationship Specialty Start Date End Date Wayne Kurtz MD [address] [place] [id number] PCP - General Family Medicine 04/09/16 Dayami Gill APRN, RESIDENTIAL SALES MANAGER [address] [place] [id number] Nurse Practitioner Advanced Practice Nurse 04/26/16 Suman Becerra MD [address] [place] [address] Consulting Physician Gastroenterology 05/24/21 Ngozi De Luna APRN, RESIDENTIAL SALES MANAGER [address] [place] [address] Nurse Practitioner Advanced Practice Nurse 09/02/22
--- OUTSIDE RECORDS SUMMARY | 2025-01-18 01:01 | XMS_ITS | Encounter Summary ---
Author Organization [facility] Address [address] [place] [address] Phone Care Team Providers Care Teletype Telegrapher Name Role Phone Wayne Kurtz MD Primary Care Provider [phone] Dayami Gill APRN, WALL TAPER Unavailable [phone] Suman Becerra MD Unavailable [phone] Ngozi De Luna APRN, WALL TAPER Unavailable Reason for Visit * Reason Comments Medication Refill Encounter Details Date Type Department Care Team (Late st Contact Info) Description 06/30/2021 Refill [facility] G[facility]enterology - [place] [address] [place] [address] Komal Johnson Maryellen, PAC [address] [place] [address] Medication Refill Social History Tobacco Use Types [...] complication documented in this encounter Care Teams Teletype Telegrapher Relationship Specialty Start Date End Date Wayne Kurtz MD [address] [place] [id number] PCP - General Family Medicine 04/09/16 Dayami Gill APRN, WALL TAPER [address] [place] [phone] Nurse Practitioner Advanced Practice Nurse 04/26/16 Suman Becerra MD [address] [place] [address] Consulting Physician Gastroenterology 05/24/21 Ngozi De Luna APRN, WALL TAPER [address] [place] [address] Nurse Practitioner Advanced Practice Nurse 09/02/22 documented as of this encounter
[2025-01-18 10:52] VITALS: BP 127/91; PULSE 70; RESP 16; TEMP 35.9; O2SAT 96
[2025-01-18] MEDS: LACTATED RINGERS 1,000 ML 150 ML IV CONT (11:05)
--- NOTE | 2025-01-18 12:06 | WPDHPUPDATE1 ---
History and Physical Update Update Date/Time: 01/18/25 12:06 History and Physical has been reviewed, including an updated exam of the patient. There are NO changes in the patient's condition. Risks, benefits, and alternatives have been discussed and questions answered. Patient agrees to proceed with procedure.
--- NOTE | 2025-01-18 12:10 | WPDANESEPPF ---
Anes - Initial Pre Proc Eval Procedure: Operation Date: 01/18/25 12:30 Proposed Procedures p Diagnostic Colonoscopy - Leo Sanchez MD Date/Time: 01/18/25 12:10 Surgeon: Leo Sanchez MD Pre Op Diagnosis: Ulcerative colitis, unspecified, without complicat Patient Data Age: 49 Gender: M Height: 1.75 m Weight: 77.9 kg Last Vital Signs Temp 35.9 C L 01/18/25 10:52 Pulse 70 01/18/25 10:52 Resp 16 01/18/25 10:52 BP 127/91 H 01/18/25 10:52 Pulse Ox 96 01/18/25 10:52 O2 Del Method Room Air 01/18/25 10:52 Allergies Allergy/AdvReac Type Severity Reaction Status Date / Time No Known Allergies Allergy Verified 01/18/25 10:50 Home Medications ?Medication ?Instructions ?Recorded ?Confirmed ?Type alendronate 70 mg tablet 70 mg PO WEEKLY 03/19/19 01/11/25 History calcium carbonate (Calcium 500) 500 mg PO BID 03/25/19 01/18/25 History glucosamine-chondroitin 250 mg-200 2 tablet PO DAILY 03/25/19 01/18/25 History mg tablet (Osteo Bi-Flex) multivitamin,cw-[id number] 1 tablet PO DAILY 03/25/19 01/18/25 History (Complete Multivitamin tablet) digoxin 250 mcg (0.25 mg) tablet 250 mcg PO QAM 30 days #30 tabs 08/26/24 01/18/25 Rx (Digitek) folic acid 1 mg tablet 1 mg PO DAILY #30 tabs 08/26/24 01/18/25 Rx metoprolol succinate 100 mg 200 mg (2 x 100 mg) PO QAM 30 days 08/26/24 01/18/25 Rx tablet,extended release 24 hr #60 tabs (Toprol XL) sacubitril 24 mg-valsartan 26 mg 1 tab PO Q12HR 30 days #60 tabs 08/26/24 01/18/25 Rx tablet (Entresto) adalimumab 40 mg/0.8 mL 40 mg (0.8 mL) subcut Q14D 1 month 12/20/24 01/11/25 Rx subcutaneous pen kit (Humira Pen) #2 ea apixaban 5 mg tablet (Eliquis) 5 mg PO BID 01/11/25 01/18/25 History furosemide 20 mg tablet 20 mg PO DAILY 01/11/25 01/18/25 History Patient hx anesthesia problems: none Family hx anesthesia problems: none Results Review: All pre-operative results and documents have been reviewed as part of the pre-operative evaluation. [facility] Past Medical History Medical History History of use of high risk medication Skin lesion Pulmonary hypertension Rheumatoid arthritis Hyponatremia MVP (mitral valve prolapse) Systolic heart failure Frequent falls Atrial fibrillation History of seizure Hx of traumatic brain injury Heart murmur Pulmonary nodule Osteoporosis Brain aneurysm Ulcerative colitis Hypertension Surgical History Surgical History SENIOR SOLUTIONS ENGINEER (ventriculoperitoneal) shunt status H/O left knee surgery Hx of tracheostomy Hx of colonoscopy Hx of brain surgery S/P clamping of cerebral aneurysm Family History Family History Father Hypertension Family history of coronary artery disease Mother Hypertension Family history of coronary artery disease Grandparent Carcinoma of colon Diabetes mellitus Social History Social History Social History: The patient is currently living with his grandmother and helps to take care of her. The patient walks with a walker typically but has been in a wheelchair recently. Lifelong nonsmoker. He denies any alcohol marijuana or illicit drugs. The patient denies being on disability but is unemployed at this time Code status full code Smoking status: Never smoker Second hand tobacco smoke exposure: No Alcohol intake: never Substance use: never Substance use type: does not use Do You Feel Safe in your Home?: Yes Lack of Transportation: No Lack of Food: Never True Current Housing: I Have Housing Concerned About Future Housing: No Difficulty Paying Gas/Electric Bills: No Difficulty Paying for Meds: No Currently Unemployed: No Education: High School Diploma/GED Difficulty w/ Childcare or Family Care: No Living arrangements: with family Gender identity (if verbalized by the patient): Male Spiritual care concerns: No Anes - Eval Final PreProcedure Day of Procedure 01/18/25 12:10 Patient weight: normal Heart: regular rate and rhythm Lungs: decreased breath sounds Airway: Mallampati scale class III Neurological: alert and oriented Last oral intake: >/= 8 hours ASA classification: IV Emergent: no Anesthetic plan: proceed Anesthesia type and monitoring: general GIVS and standard monitoring Results Review: All pre-operative results and documents have been reviewed as part of the pre-operative evaluation. Informed Consent: The patient's anesthetic plan and its attendant risks and benefits were discussed with the patient/family/POA. Questions were solicited and answers provided to the satisfaction of the patient/family/POA.
--- NOTE | 2025-01-18 12:26 | S_PTH ---
PATIENT: Moose Miranda LOC: [facility]#:[id number] AGE/SX: 49/M ROOM: RE01/18/[address]: Leo Sanchez MD : 1975 BED: DIS: 01/18/2025 SPEC #: [id number] RECD: 01/18/25 13:19 STATUS: MIL [place] #: [id number] KAILA: 01/18/25 12:[address]: Leo Sanchez DEPT: [facility] Surgical RECD BY: Shiela Judd ENTERED: 01/18/25 13:20 SP TYPE: Surgical OTHR DR: Wayne Kurtz MD Tissues: A - Colon Biopsy B - Colon Biopsy Procedures: Hematoxylin and Eosin Stain Gross and Microscopic Level 4
[2025-01-18 12:31] VITALS: BP 102/79; PULSE 89; RESP 18; O2SAT 100
[2025-01-18 12:41] VITALS: BP 108/76; PULSE 77; RESP 25; O2SAT 100
[2025-01-18 12:51] VITALS: BP 119/87; PULSE 69; RESP 22; O2SAT 100
== END 2025-01-18 13:11 | disposition home or self-care (01) ==
PROVIDERS: PCP Family Medicine; Referring Provider Nurse Practitioner Family; Visit Provider Internal Medicine Gastroenterology
PROC: 0DJD8ZZ Inspection of Lower Intestinal Tract, Via Natural or Artificial Opening Endoscopic (ICD-10-PCS; CPT 45378; principal; 2025-01-18 12:30)
DX: Z09 Encounter for follow-up examination after completed treatment for conditions other than malignant neoplasm (principal); K51.811 Other ulcerative colitis with rectal bleeding; K64.8 Other hemorrhoids; I48.91 Unspecified atrial fibrillation; I11.0 Hypertensive heart disease with heart failure; I50.20 Unspecified systolic (congestive) heart failure; I27.20 Pulmonary hypertension, unspecified; R01.1 Cardiac murmur, unspecified; M81.0 Age-related osteoporosis without current pathological fracture; E87.1 Hypo-osmolality and hyponatremia; L98.9 Disorder of the skin and subcutaneous tissue, unspecified; R26.9 Unspecified abnormalities of gait and mobility; R56.9 Unspecified convulsions; M06.9 Rheumatoid arthritis, unspecified; Z79.83 Long term (current) use of bisphosphonates; Z79.620 Long term (current) use of immunosuppressive biologic; Z79.01 Long term (current) use of anticoagulants; Z98.890 Other specified postprocedural states; Z93.0 Tracheostomy status; Z92.29 Personal history of other drug therapy; Z87.19 Personal history of other diseases of the digestive system; Z86.79 Personal history of other diseases of the circulatory system; Z80.0 Family history of malignant neoplasm of digestive organs; Z82.49 Family history of ischemic heart disease and other diseases of the circulatory system
CPT/HCPCS: 45380; 88305; J2003; J2704; J7120